=== PATIENT | female | born 1960 | race Two or more races ===

== ENCOUNTER 2020-07-21 08:29 | Outpatient (REF) | payer OTHER, SELFPAY ==
--- NOTE | 2020-07-21 08:54 | XR_ITS ---
EXAMINATION: XR KNEES, STANDING AP XR KNEE, RIGHT XR KNEE, LEFT CLINICAL INFORMATION: Osteoarthritis right knee, pain. Difficulty bending left knee, prior arthroplasty. COMPARISON: Radiographs standing AP knees and left knee 06/26/2018, radiographs right knee 12/21/2017. TECHNIQUE: Standing AP view of both knees is performed. In addition, each knee is imaged in lateral and axial patella views. FINDINGS: The right knee shows no fracture or dislocation or destructive process. There are prominent osteoarthritic changes involving all 3 compartments. There is greatest narrowing medial knee joint compartment with secondary genu varus. Bulky osteophytes are seen involving the femoral condyles as well as osteophytes involving the tibial plateau and patella. There is no erosive change or definite articular chondrocalcinosis. No lateralization patella. There may be lateral patellar tilt. No significant effusion appreciated. The left knee shows prior arthroplasty. The hardware appears intact. There is no fracture, dislocation, destructive process, or osteolysis. No suprapatellar effusion. Again, there is mineralization in the distal quadriceps tendon and in the patellar tendon. No definite lateralization or tilting patella. IMPRESSION: 1. Right: Prominent tricompartment osteoarthritis. Secondary genu varus. 2. Left: Prior knee arthroplasty. Hardware intact. No destructive process. No effusion.
== END 2020-07-21 08:30 | disposition home or self-care (01) ==
LOC: HO.XRAY 08:29
PROVIDERS: PCP Family Medicine; Referring Provider Family Medicine; Visit Provider Orthopaedic Surgery
DX: T84.84XA Pain due to internal orthopedic prosthetic devices, implants and grafts, initial encounter (principal); M17.11 Unilateral primary osteoarthritis, right knee; Z96.652 Presence of left artificial knee joint
CPT/HCPCS: 73560; 73565; 99212

== ENCOUNTER → 2020-08-04 08:33 | Outpatient (BNVA) | payer OTHER, SELFPAY | PROVIDERS: PCP Family Medicine; Referring Provider Family Medicine; Visit Provider Orthopaedic Surgery | DX: M75.41 Impingement syndrome of right shoulder (principal) | CPT/HCPCS: 20610; 99212; J1100 ==

== ENCOUNTER 2020-08-04 08:40 | Outpatient (REF) | payer OTHER, SELFPAY ==
--- NOTE | 2020-08-04 08:40 | XR_ITS ---
EXAMINATION: XR SHOULDER, RIGHT CLINICAL INFORMATION: Pain. COMPARISON: None TECHNIQUE: Three views of the right shoulder. FINDINGS: There is loss of right AC joint and glenohumeral joint space with periarticular spurring AC joint. No bony erosive changes, fracture or dislocation or subluxation. XR/XR shoulder RT min 2V IMPRESSION: Degenerative arthritic changes right AC joint and glenohumeral joint. No visible acute fracture or dislocation seen.
== END 2020-08-04 08:41 | disposition home or self-care (01) ==
LOC: HO.HOSX 08:40
PROVIDERS: Visit Provider Orthopaedic Surgery
DX: M75.41 Impingement syndrome of right shoulder (principal)
CPT/HCPCS: 73030

== ENCOUNTER 2020-08-27 12:49 | Outpatient (REF) | payer OTHER, SELFPAY | END 2020-08-27 12:50 | disposition home or self-care (01) | LOC: HO.LAB 12:49 | PROVIDERS: Visit Provider Internal Medicine | DX: Z20.828 Contact with and (suspected) exposure to other viral communicable diseases (principal) | CPT/HCPCS: C9803; U0003 ==

== ENCOUNTER 2020-09-02 06:32 | Outpatient (REF) | payer OTHER, SELFPAY | END 2020-09-02 06:33 | disposition home or self-care (01) | LOC: HO.LAB 06:32 | PROVIDERS: Visit Provider Internal Medicine | DX: Z20.828 Contact with and (suspected) exposure to other viral communicable diseases (principal) | CPT/HCPCS: C9803; U0003 ==

== ENCOUNTER → 2020-09-08 08:24 | Outpatient (BNVA) | payer OTHER, SELFPAY | PROVIDERS: PCP Family Medicine; Visit Provider Orthopaedic Surgery | DX: Z76.89 Persons encountering health services in other specified circumstances (principal) ==

== ENCOUNTER 2020-09-11 07:54 | Outpatient (REF) | payer OTHER, SELFPAY ==
--- NOTE | 2020-09-11 08:02 | ECG_ITS ---
Test Reason : PREOP Blood Pressure : / mmHG Vent. Rate : 065 BPM Atrial Rate : 065 BPM P-R Int : 158 ms QRS Dur : 074 ms QT Int : 384 ms P-R-T Axes : 046 042 027 degrees QTc Int : 399 ms Sinus rhythm with Premature atrial complexes Otherwise normal ECG When compared to the previous EKG of 04 jul 2019, PACs now seen Referred By: Arjun Saeed Electronically Signed By:MATTHEW URIBE
[2020-09-11 08:45] LABS: MANUAL DIFF FLAG NO
[2020-09-11 08:58] LABS: Basophils Percent Auto 0.6 % (0-2); Eosinophils Absolute Auto 0.2 X10*3/uL (0.0-0.4); Eosinophils Percent Auto 2.9 % (0-4); Imm Gran Abs Auto 0.01 X10*3/uL (0.00-0.03); Imm Gran Pct Auto 0.2 % (0.0-0.4); Lymphocytes Absolute Auto 1.4 X10*3/uL (1.2-4.9); Lymphocytes Percent Auto 25.9 % (20-40); Mean Corpuscular Hemoglobin 28.3 pg (27.0-33.0); Mean Corpuscular Volume 91.5 fL (80-98); Mean Platelet Volume 10.2 fL (9.4-12.3); Monocytes Absolute Auto 0.4 X10*3/uL (0.1-1.2); Neutrophils Absolute Auto 3.3 X10*3/uL (2.0-8.3); Neutrophils Percent Auto 62.4 % (45-73); Platelet Count 251 X10*3/uL (160-400); Red Blood Count 4.59 X10*6/uL (4.20-5.50); Red Cell Distribution Width 13.4 % (11.0-16.0); White Blood Count 5.2 X10*3/uL (4.8-10.8)
[2020-09-11 09:12] LABS: Anion Gap 12 (12-20); Blood Urea Nitrogen 20 mg/dL (9-16); Calcium 8.8 mg/dL (8.4-10.2); Carbon Dioxide 29 mmol/L (22-29); Chloride 105 mmol/L (96-108); Estimated Glomerular Filt Rate > 60; Glucose Random 81 mg/dL (60-115); Potassium 4.2 mmol/l (3.3-5.1); Sodium 142 mmol/L (135-145)
== END 2020-09-11 07:55 | disposition home or self-care (01) ==
LOC: HO.LAB 07:54
PROVIDERS: PCP Family Medicine; Visit Provider Orthopaedic Surgery
DX: Z01.812 Encounter for preprocedural laboratory examination (principal); Z01.810 Encounter for preprocedural cardiovascular examination; I49.1 Atrial premature depolarization
CPT/HCPCS: 36415; 80048; 85025; 93005

== ENCOUNTER 2020-09-24 16:16 | Outpatient (REF) | payer OTHER, SELFPAY ==
--- NOTE | 2020-09-24 | US_ITS ---
EXAMINATION: US VENOUS ULTRASOUND WITH DOPPLER LOWER EXTREMITY, RIGHT CLINICAL INFORMATION: Edema COMPARISON: Venous Doppler ultrasound study right lower extremity 08/01/2014 dictated report only. Images not available for review. TECHNIQUE: Ultrasound of the deep veins is performed from the hip to the calf with compression sonography and color and pulse Doppler assessment. Spectral analysis with color-flow imaging is performed. FINDINGS: There is normal venous compression and respiratory variation and augmented flow. The visualized common femoral vein, superficial femoral vein, profunda femoral vein, popliteal vein, and the trifurcation region shows no evidence of deep venous thrombosis. No evidence of thrombus in the posterior tibial vein. The peroneal vein was not visualized. There is no significant popliteal fossa cyst. If the patient's symptoms persist, followup ultrasound in 5 days 7 days might be of value to exclude proximal propagation from a non-visualized calf vein. US/US venous duplex LE RT IMPRESSION: No DVT demonstrated in the right lower extremity.
== END 2020-09-24 16:17 | disposition home or self-care (01) ==
LOC: HO.US 16:16
PROVIDERS: PCP Family Medicine; Visit Provider Family Medicine
DX: M79.604 Pain in right leg (principal)
CPT/HCPCS: 93971

== ENCOUNTER → 2020-10-06 12:34 | Outpatient (BNVA) | payer OTHER, SELFPAY | PROVIDERS: Visit Provider Physician Assistant | DX: Z01.818 Encounter for other preprocedural examination (principal); T84.89XD Other specified complication of internal orthopedic prosthetic devices, implants and grafts, subsequent encounter; Z96.652 Presence of left artificial knee joint | CPT/HCPCS: 99212 ==

== ENCOUNTER 2020-10-07 06:14 | Inpatient (IN) | payer OTHER, SELFPAY ==
[2020-09-29 12:06] VITALS: BMI 40.4
--- NOTE | 2020-09-29 12:16 | HO.ANESPROP2 ---
Documented by User: Naima Vickney 10/06/20 13:21 HPI - Anesthesia Eval Consult details Narrative: 60yo F for L TKA PCP cleared after optimizing BP. [facility] Past Medical History Medical History Arthritis Asthma Back pain Cancer DCIS (ductal carcinoma in situ) History of headache HTN (hypertension) Hx of radiation therapy Impingement syndrome of right shoulder Osteoarthritis of right knee Personal history of tuberculosis Wears dentures Family History Family History Father No problems noted. Mother No problems noted. Surgical History Surgical History H/O colonoscopy History of lumpectomy of right breast History of sleeve gastrectomy Hx of dilation and curettage Hx of foot surgery Hx of hysterectomy Hx of total knee replacement Status post left knee replacement History of Problems with Anesthesia: No Social History Social History Are you a primary customer care professional to a significant other at home: No Do you presently have visiting nurse or other home services: Yes ([employer]) Alcohol intake: never Smoking Status: Never smoker Use of substances other than those prescribed or required for medical reasons: No Have you been hit, kicked, punched, or otherwise hurt by someone within the past year? If so, by whom?: No Advance Directives Information Provided: No Recently lost weight without trying: No Current occupational status: disabled Current occupation: Right Handed Narrative Narrative: No recent illness. Activity limited to pain, deconditioning. Meds Allergies Allergy/AdvReac Type Severity Reaction Status Date / Time BANDAIDS Allergy Intermediate BLISTERS Uncoded 09/29/20 12:32 STERI-STRIPS Allergy Intermediate BLISTERS Uncoded 09/29/20 12:32 Home Medications Medication Instructions Recorded Confirmed Type oxycodone-acetaminophen 2.5 mg-325 1 tab PO Q8H PRN 07/21/20 09/29/20 History mg tablet albuterol sulfate 90 mcg/actuation 90 mcg INHALATION BID 09/09/20 10/07/20 History aerosol inhaler amlodipine 10 mg tablet 10 mg PO DAILY 09/09/20 10/07/20 History sennosides 8.6 mg tablet 17.2 mg PO DAILY 09/09/20 10/07/20 History lisinopril 20 mg tablet 30 mg PO DAILY tab 10/06/20 History Exam Exam Date and Time: September 29, 2020 1216 Height,Weight and Vital Signs: Vital Signs Pulse Rate 57 09/29/20 12:26 Respiratory Rate 20 09/29/20 12:26 Blood Pressure 173/73 H 09/29/20 12:26 Pulse Oximetry 98 09/29/20 12:26 Pertinent Lab Results Pertinent Lab Results: Laboratory Tests 09/29/20 09/29/20 11:33 11:33 WBC 6.7 Hgb 13.5 Hct 43.6 Plt Count 263 Sodium 139 Potassium 4.8 Chloride 104 Carbon Dioxide 30 H BUN 16 Creatinine 0.72 Laboratory Tests 09/30/20 16:50 Blood Type A Positive Antibody Screen NEGATIVE Narrative Narrative: EKG 09/2020: SR with PACs @ 63 Echo 2019: Nml biV function, no obvious valve or pericardial pathology, mild pulm htn Airway Mallampati Class: I TM Dist: >3cm Neck ROM: Full Denture: Upper and Lower Heart: RRR Lungs: CTAB Assessment and Plan Assessment Anesthesia Assessment: Anesthesia Plan Discussed and PAT Visit Documented by User: Devendra Little MD 10/07/20 08:28 [facility] Past Medical History Medical History Arthritis Asthma Back pain Cancer DCIS (ductal carcinoma in situ) History of headache HTN (hypertension) Hx of radiation therapy Impingement syndrome of right shoulder Osteoarthritis of right knee Personal history of tuberculosis Wears dentures Family History Family History Father No problems noted. Mother No problems noted. Surgical History Surgical History H/O colonoscopy History of lumpectomy of right breast History of sleeve gastrectomy Hx of dilation and curettage Hx of foot surgery Hx of hysterectomy Hx of total knee replacement Status post left knee replacement Social History Social History Are you a primary customer care professional to a significant other at home: No Do you presently have visiting nurse or other home services: Yes ([employer]) Alcohol intake: never Smoking Status: Never smoker Use of substances other than those prescribed or required for medical reasons: No Have you been hit, kicked, punched, or otherwise hurt by someone within the past year? If so, by whom?: No Advance Directives Information Provided: No Recently lost weight without trying: No Current occupational status: disabled Current occupation: Right Handed Meds Allergies Allergy/AdvReac Type Severity Reaction Status Date / Time BANDAIDS Allergy Intermediate BLISTERS Uncoded 09/29/20 12:32 STERI-STRIPS Allergy Intermediate BLISTERS Uncoded 09/29/20 12:32 Home Medications Medication Instructions Recorded Confirmed Type oxycodone-acetaminophen 2.5 mg-325 1 tab PO Q8H PRN 07/21/20 09/29/20 History mg tablet albuterol sulfate 90 mcg/actuation 90 mcg INHALATION BID 09/09/20 10/07/20 History aerosol inhaler amlodipine 10 mg tablet 10 mg PO DAILY 09/09/20 10/07/20 History sennosides 8.6 mg tablet 17.2 mg PO DAILY 09/09/20 10/07/20 History lisinopril 20 mg tablet 30 mg PO DAILY tab 10/06/20 History Assessment and Plan Assessment Anesthesia Assessment: Anesthesia Plan Discussed, PAT Visit and Chart Reviewed Final Anesthetic Review NPO: Yes ASA Class: III Final Preanesthetic Review: No Changes in Pt Med Stat, Meds/Allgs Chart Reviewed, Consent Obtained/Reviewed and Anes Risks/Benef Reviewed Patient Risk: Intermediate Procedure Risk: Intermediate Anesthetic Plan Anesthetic Plan: GA and Regional Block Disposition: Standard PACU
[2020-09-29 12:26] VITALS: BP 173/73; PULSE 57; RESP 20; O2SAT 98
[2020-09-29 14:24] LABS: MANUAL DIFF FLAG NO
[2020-09-29 14:28] LABS: Basophils Percent Auto 0.1 % (0-2); Eosinophils Absolute Auto 0.1 X10*3/uL (0.0-0.4); Eosinophils Percent Auto 0.9 % (0-4); Hematocrit 45.9 % (37-47); Imm Gran Abs Auto 0.02 X10*3/uL (0.00-0.03); Imm Gran Pct Auto 0.3 % (0.0-0.4); Lymphocytes Absolute Auto 1.4 X10*3/uL (1.2-4.9); Lymphocytes Percent Auto 21.5 % (20-40); Mean Corpuscular HGB Conc 30.5 g/dl (31.0-35.0); Mean Corpuscular Hemoglobin 27.9 pg (27.0-33.0); Mean Corpuscular Volume 91.6 fL (80-98); Mean Platelet Volume 10.6 fL (9.4-12.3); Monocytes Absolute Auto 0.5 X10*3/uL (0.1-1.2); Monocytes Percent Auto 7.5 % (2-11); Neutrophils Absolute Auto 4.7 X10*3/uL (2.0-8.3); Neutrophils Percent Auto 69.7 % (45-73); Platelet Count 262 X10*3/uL (160-400); Red Blood Count 5.01 X10*6/uL (4.20-5.50); Red Cell Distribution Width 13.1 % (11.0-16.0); White Blood Count 6.7 X10*3/uL (4.8-10.8)
[2020-09-29 15:00] LABS: Alanine Aminotransferase 20 U/L (0-31); Albumin Level 4.1 g/dL (3.5-5.0); Alkaline Phosphatase 78 U/L (39-117); Anion Gap 11 (12-20); Aspartate Amino Transferase 24 U/L (5-31); Bilirubin Total 0.4 mg/dL (0.0-1.0); Blood Urea Nitrogen 14 mg/dL (9-16); Calcium 9.3 mg/dL (8.4-10.2); Carbon Dioxide 30 mmol/L (22-29); Chloride 103 mmol/L (96-108); Creatinine Clr Calc Pharmacy 87.5; Estimated Glomerular Filt Rate > 60; Glucose Random 85 mg/dL (60-115); Potassium 4.5 mmol/l (3.3-5.1); Sodium 139 mmol/L (135-145); Total Protein 7.2 g/dL (6.5-8.0)
[2020-09-29 15:18] LABS: MRSA Nasal PCR NEGATIVE (Negative); SA Nasal PCR NEGATIVE (Negative)
[2020-10-07] VITALS (16 sets, daily range): BP systolic 105–173; BP diastolic 42–79; PULSE 58–98; RESP 14–18; TEMP 35.9–36.9; O2SAT 94–100
[2020-10-07 06:50] LABS: COVID-19 Test Negative (Negative)
[2020-10-07] MEDS: ceFAZolin Sodium/Dextrose,Iso 2 GM/50 ML PIGGYBACK IV ×2 (06:52→13:37)
[2020-10-07] MEDS: Gabapentin 600 MG TABLET PO (06:54)
[2020-10-07] MEDS: Lactated Ringers 1,000 ML 100 ML IVCONT (07:18)
--- NOTE | 2020-10-07 07:18 | PC.NURSE ---
patient c/o underneath bilateral breast itching. redness noted underneath breasts only. no s/sx of infection or an allergic reavtion to the area or the rest of the area. cont to monitor.
--- NOTE | 2020-10-07 07:37 | MHC.SHP ---
Pre-Procedural Eval Section A The patient is an INPATIENT: No Changes since office visit: Yes Patient answered all questions; No Cold of Flu in the past 2 weeks, No New Medical Problems and No Changes in Medication The History & Physical has been completed within 30 days and I have reviewed it.: Yes Section B Chief Complaint: Left revision total knee arthroplasty Allergies: Allergies Allergy/AdvReac Type Severity Reaction Status Date / Time BANDAIDS Allergy Intermediate BLISTERS Uncoded 09/29/20 12:32 STERI-STRIPS Allergy Intermediate BLISTERS Uncoded 09/29/20 12:32 Plan I have reviewed the history and physical and performed a pertinent physical examination on my patient. No changes have occurred unless specified.
--- NOTE | 2020-10-07 09:34 | PM.OP ---
Brief Operative Note Date of Service: 10/07/20 Pre-op diagnosis: arthrofibrosis left knee Post-op diagnosis: same Procedure: left knee open lysis of adhesion and polyethylene line exchange Implants: ba 11/15 PS Surgeon: Arjun Saeed MD Anesthesia: GETA and regional [employer] Advisor: Iesha Malhotra Estimated blood loss (mL): 100 Tourniquet time (min): 0 IV fluids (mL): 1,100 Urine output (mL): 0 Pathology: none sent Condition: stable Disposition: PACU
--- NOTE | 2020-10-07 10:41 | XR_ITS ---
EXAMINATION: XR KNEE, LEFT CLINICAL INFORMATION: Left TKA revision. COMPARISON: None TECHNIQUE: 2 views. of the left knee. FINDINGS: There is a total left knee arthroplasty with prosthetic components in alignment. There are surgical dean along the anterior knee from surgery. There is gas and soft tissue swelling along the anterior knee. XR/XR knee LT 2V IMPRESSION: Total left knee arthroplasty with postoperative changes visualized.
[2020-10-07] MEDS: Dextrose 5 % and 0.45 % NaCl 1,000 ML 80 ML IVCONT (13:34)
[2020-10-07] MEDS: HYDROmorphone HCl 0.5 MG/0.5 ML SYRINGE 0.25 MG IVPUSH (14:47)
--- NOTE | 2020-10-07 16:43 | P.CONIM_ITS ---
History of Present Illness Data of Consult Service Date: 10/07/20 <Bianka Mirza NP - Last Filed: 10/07/20 16:48> Requesting physician: Arjun Saeed <Bianka Mirza NP - Last Filed: 10/07/20 16:48> Primary Care Provider: Anushka Figueredo DO <Bianka Mirza NP - Last Filed: 10/07/20 16:48> HPI Reason for consult: Medical management <Bianka Mirza NP - Last Filed: 10/07/20 16:48> 60-year-old woman With history of hypertension, asthma, arthritis status post left total knee arthroplasty. Admitted by Orthopedic surgery. Surgery was unremarkable. Vital signs are stable. Patient has no acute medical complaints at this time. <Bianka Mirza NP - Last Filed: 10/07/20 16:48> Review of Systems Review of Systems: Denies any recent fever chills or decrease in appetite respiratory denies any shortness of breath coverage production cardiovascular is adjustment of any PND or edema gastrointestinal denies any dysphagia abdominal pain nausea vomiting or di arrhea genitourinary denies any dysuria frequency or hematuria musculoskeletal denies any joint pain or swelling neuropsych denies any weakness or seizures all other systems reviewed are negative <Bianka Mirza NP - Last Filed: 10/07/20 16:48> [facility] Medical History: Medical History (Updated 10/08/20 @ 07:39 by Iesha Malhotra PA-C) Arthritis Asthma Back pain Cancer DCIS (ductal carcinoma in situ) History of headache HTN (hypertension) Hx of radiation therapy Impingement syndrome of right shoulder Osteoarthritis of right knee Personal history of tuberculosis Wears dentures <Bianka Mirza NP - Last Filed: 10/07/20 16:48> Family History: Family History Father No problems noted. Mother No problems noted. <Bianka Mirza NP - Last Filed: 10/07/20 16:48> Surgical History: Surgical History H/O colonoscopy History of lumpectomy of right breast History of sleeve gastrectomy Hx of dilation and curettage Hx of foot surgery Hx of hysterectomy Hx of total knee replacement Status post left knee replacement <Bianka Mirza NP - Last Filed: 10/07/20 16:48> Social History: Social History Household Members: Family Housing: House Are you a primary medicare insurance specialist to a significant other at home: No Do you presently have visiting nurse or other home services: No Alcohol intake: never Smoking Status: Never smoker Use of substances other than those prescribed or required for medical reasons: No Currently Displaying Signs/Symptoms of Drug Intoxication Withdrawal: No Have you been hit, kicked, punched, or otherwise hurt by someone within the past year? If so, by whom?: No Do you feel safe in your current relationship?: No Current Relationship Is there a partner from a previous relationship who is making you feel unsafe now?: No Are you made to feel afraid or neglected: No Advance Directives Information Provided: No Do you have thoughts of harming others: None Do you have a plan to hurt others: No Plan Recently lost weight without trying: No Current occupational status: disabled Current occupation: Right Handed <Bianka Mirza NP - Last Filed: 10/07/20 16:48> Meds Allergies/Adverse reactions: Allergies Allergy/AdvReac Type Severity Reaction Status Date / Time BANDAIDS Allergy Intermediate BLISTERS Uncoded 09/29/20 12:32 STERI-STRIPS Allergy Intermediate BLISTERS Uncoded 09/29/20 12:32 <Bianka Mirza NP - Last Filed: 10/07/20 16:48> Home medications: Home Medications Medication Instructions Recorded Confirmed Type oxycodone-acetaminophen 2.5 mg-325 1 tab PO Q8H PRN 07/21/20 09/29/20 History mg tablet albuterol sulfate 90 mcg/actuation 2 puff INHALATION Q4H PRN 09/09/20 10/07/20 History aerosol inhaler amlodipine 10 mg tablet 10 mg PO DAILY 09/09/20 10/07/20 History sennosides 8.6 mg tablet 17.2 mg PO DAILY 09/09/20 10/07/20 History lisinopril 20 mg tablet 30 mg PO DAILY tab 10/06/20 History <Bianka Mirza NP - Last Filed: 10/07/20 16:48> Physical Exam Vital Signs and Narrative: Vital Signs: Last Vital Signs Temp 97.2 F 10/07/20 16:00 Pulse 79 10/07/20 16:00 Resp 18 10/07/20 16:00 BP 140/76 H 10/07/20 16:00 Pulse Ox 100 10/07/20 16:00 Body Mass Index 40.4 <Bianka Mirza NP - Last Filed: 10/07/20 16:48> Appearing in no acute distress head is normocephalic atraumatic eyes pupils are PERRLA sclera is anicteric mouth throat mucous membranes are intact and moist neck is supple no lymphadenopathy, no JVD noted lung sounds are clear to auscultation heart regular rate rhythm abdomen is tender neuro patient is alert x3, no focal deficits surgical incision, dry clean dressing. <Bianka Mirza NP - Last Filed: 10/07/20 16:48> Results Labs CBC and Chem 7: : 10/08/20 05:47 10/08/20 05:47 <Bianka Mirza NP - Last Filed: 10/07/20 16:48> Labs: Laboratory Results - last 24 hr 10/07/20 06:16 COVID-19 ([facility]) Negative COVID-19 Clin Com See Note <Bianka Mirza NP - Last Filed: 10/07/20 16:48> Imaging Radiologist's Impressions: Impressions Knee X-Ray 10/07/20 10:41 IMPRESSION: Total left knee arthroplasty with postoperative changes visualized. <Bianka Mirza NP - Last Filed: 10/07/20 16:48> Assessment and Plan (1) HTN (hypertension): Status: Acute <Bianka Mirza NP - Last Filed: 10/07/20 16:48> 60-year-old man admitted by Orthopedic surgery and is status post left knee arthroplasty. Left knee arthroplasty. Management as per surgical team. Pain management. Hypertension. Stable blood pressure. Continue home medications. Asthma. Albuterol as needed. DVT prophylaxis with mechanical compression boots Case discussed with Dr. Stewart Full code <Bianka Mirza NP - Last Filed: 10/07/20 16:48>
[2020-10-07] MEDS: oxyCODONE HCl Immed Release 5 MG TABLET 10 MG PO (17:56)
[2020-10-07] MEDS: oxyCODONE HCl ER 10 MG TAB.ER.12H PO (21:02)
[2020-10-07] MEDS: Celecoxib 200 MG CAPSULE PO (21:02)
[2020-10-08] MEDS: Dextrose 5 % and 0.45 % NaCl 1,000 ML 80 ML IVCONT ×2 (01:12→12:36)
[2020-10-08] MEDS: HYDROmorphone HCl 0.5 MG/0.5 ML SYRINGE 0.25 MG IVPUSH ×2 (03:25→20:48)
[2020-10-08 04:00] VITALS: BP 147/58; PULSE 69; RESP 16; TEMP 36.2; O2SAT 98
[2020-10-08 06:51] LABS: Basophils Percent Auto 0.2 % (0-2); Eosinophils Percent Auto 0.5 % (0-4); Hematocrit 36.2 % (37-47); Hemoglobin 11.1 g/dl (12.0-16.0); Imm Gran Abs Auto 0.02 X10*3/uL (0.00-0.03); Imm Gran Pct Auto 0.3 % (0.0-0.4); Lymphocytes Absolute Auto 0.7 X10*3/uL (1.2-4.9); Lymphocytes Percent Auto 10.7 % (20-40); MANUAL DIFF FLAG SCAN; Mean Corpuscular HGB Conc 30.7 g/dl (31.0-35.0); Mean Corpuscular Hemoglobin 28.3 pg (27.0-33.0); Mean Corpuscular Volume 92.3 fL (80-98); Mean Platelet Volume 10.7 fL (9.4-12.3); Monocytes Absolute Auto 0.8 X10*3/uL (0.1-1.2); Monocytes Percent Auto 12.6 % (2-11); Neutrophils Absolute Auto 4.8 X10*3/uL (2.0-8.3); Neutrophils Percent Auto 75.7 % (45-73); Platelet Count 223 X10*3/uL (160-400); Red Blood Count 3.92 X10*6/uL (4.20-5.50); Red Cell Distribution Width 13.2 % (11.0-16.0); SCAN SMEAR FLAG 1; White Blood Count 6.4 X10*3/uL (4.8-10.8)
[2020-10-08 06:53] LABS: Anion Gap 15 (12-20); Blood Urea Nitrogen 9 mg/dL (9-16); Calcium 8.2 mg/dL (8.4-10.2); Carbon Dioxide 26 mmol/L (22-29); Chloride 103 mmol/L (96-108); Creatinine Clr Calc Pharmacy 98.6; Estimated Glomerular Filt Rate > 60; Glucose Fasting 129 mg/dL (60-99); Potassium 4.5 mmol/l (3.3-5.1); Sodium 139 mmol/L (135-145)
[2020-10-08 07:30] VITALS: BP 150/65; PULSE 75; RESP 17; TEMP 36.6; O2SAT 99
[2020-10-08] MEDS: Celecoxib 200 MG CAPSULE PO ×2 (07:31→20:48)
[2020-10-08] MEDS: 0.9 % Sodium Chloride Flush 3 ML SYRINGE IVFLUSH (07:32)
[2020-10-08] MEDS: oxyCODONE HCl ER 10 MG TAB.ER.12H PO ×2 (07:32→20:49)
--- NOTE | 2020-10-08 07:37 | PM.PNORT ---
Subjective Subjective Date of Service: 10/08/20 Interval history: POD1 s/p LTKA revision. Patient states that her pain is well managed. Her night was okay . She reports using her CPM machine until about midnight. No overnight events. Physical Exam Vital Signs: Vital Signs: Last Vital Signs Temp 97.9 F 10/08/20 07:30 Pulse 75 10/08/20 07:30 Resp 17 10/08/20 07:30 BP 150/65 H 10/08/20 07:30 Pulse Ox 99 10/08/20 07:30 Body Mass Index 40.4 Const: General: cooperative, healthy appearing and no acute distress Resp: Effort & Inspection: normal respiratory effort and able to speak in complete sentences Cardio: Rate: regular rate Peripheral pulses: Peripheral pulses 2+ throughout GI: Inspection: Yes normal to inspection Palpation (GI): Soft to palpation Skin: General skin exam: no rashes or lesions noted Extrem: Other: Dressing is clean, dry, intact, no ecchymosis redness or drainage. NVI Progress Note: A&P Assessment and plan (1) History of revision of total replacement of left knee joint: Status: Acute Assessment and Plan: Continue pain mgmnt Begin Aspirin for dvt ppx begin PT for LT TKA Revision, CPM 24hrs/day Dispo planning-Pending PT eval, pain mgmnt Fall Risk Details Current Medications: Current Medications Generic Name Dose Route Start Last Admin Trade Name Freq PRN Reason Stop Dose Admin Acetaminophen 650 mg 10/07/20 13:32 Acetaminophen 325 Mg Tablet PO Q6H PRN Pain, Mild (Pain Scale 1-3) Albuterol Sulfate 2 puff 10/07/20 21:00 Albuterol Sulfate 90 Mcg 8 Gm Inhaler INHALE Q4H PRN Shortness of Breath Celecoxib 200 mg 10/07/20 21:00 10/08/20 07:31 Celecoxib 200 Mg Capsule PO 200 mg BID GEO Administration Hydromorphone HCl 0.25 mg 10/07/20 13:32 10/08/20 03:25 Hydromorphone Hcl 0.5 Mg/0.5 Ml Syringe IVPUSH 0.25 mg Q4H PRN Administration Pain, Severe (Pain Scale 7-10) Dextrose/Sodium Chloride 1,000 mls @ 80 mls/hr 10/07/20 13:30 10/08/20 01:12 D51/2ns IVCONT 80 mls/hr .[id number] GEO Administration Naloxone HCl 0.2 mg 10/07/20 13:32 Naloxone Hcl 0.4 Mg/Ml Vial IVPUSH Q2M PRN Excessive sedation or RR < 8 Ondansetron HCl 4 mg 10/07/20 13:32 Ondansetron Hcl 4 Mg/2 Ml Vial IVPUSH Q8H PRN Nausea and Vomiting Oxycodone HCl 10 mg 10/07/20 13:32 10/07/20 17:56 Oxycodone Hcl Immed Release 5 Mg Tablet PO 10 mg Q4H PRN Administration Pain, Moderate (Pain Scale 4-6 Oxycodone HCl 10 mg 10/07/20 21:00 10/08/20 07:32 Oxycodone Hcl Er 10 Mg Tab.Er.12h PO 10 mg BID GEO Administration Senna 17.2 mg 10/07/20 13:32 Sennosides 8.6 Mg Tablet PO BEDTIME PRN Constipation Sodium Chloride 3 ml 10/07/20 16:00 10/08/20 07:32 0.9 % Sodium Chloride Flush 3 Ml Syringe IVFLUSH 3 ml QSHIFT GEO Administration Time Spent With Patient Time: Total time spent is greater than 50% in coordination of care (as documented) at patient's floor/unit and/or counseling patient: Time with patient: less than 15 minutes
[2020-10-08 07:43] LABS: SLIDE REVIEW VERIFIED
--- NOTE | 2020-10-08 08:18 | MHC.CM.PN ---
PATIENT CURRENTLY BATHING. CASE MANAGEMENT TO RETURN FOR IMM DISCUSSION AND SIGNATURE PATIENT DOES STATE THAT SHE IS NOT GOING TO ANY REHAB FACILITY, BUT IS AGREEABLE TO HOME WITH [facility] FOR HOME [facility]T. CASE MANAGEMENT NAMES WRITTEN ON BOARD
--- NOTE | 2020-10-08 08:35 | MHC.CM.PN ---
PATIENT LIVES WITH HER TWO GRANDCHILDREN. SHE HAS A CANE, WHEELED WALKER, AND A ROLLATOR. FAMILY PROVIDES TRANSPORTATION. PATIENT ALSO HAS 12.75 HOURS OF [employer] EACH WEEK. SHE ASKS FOR [facility] REFERRAL FOR HOME P.T; NOW PLACED. IMM 10/07 IN CHART.
[2020-10-08] MEDS: Aspirin 325 MG TABLET PO ×2 (08:45→20:47)
--- NOTE | 2020-10-08 08:54 | HO.POSTANES ---
Post Anesthesia Evaluation Post Anesthesia Evaluation Vital Signs: Vital Signs Temp Pulse Resp BP Pulse Ox 10/08/20 07:30 97.9 F 75 17 150/65 H 99 10/08/20 04:00 97.2 F 69 16 147/58 H 98 10/07/20 23:21 98.5 F 82 16 149/64 H 98 Anesthesia: Nerve Block and General Endotracheal-GETA Mental Status: Awake Pain Control: Satisfactory Nausea/Vomiting: None Hydration: Adequate Anesthesia-Related Issues: No Anes. Related Issues
--- NOTE | 2020-10-08 10:12 | HO.PM.IMPN ---
Subjective Subjective Date of Service: 10/08/20 Interval History: no complaints Cardiovascular Cardiovascular: Reports no additional cardiovascular complaints Respiratory Respiratory: Reports no additional respiratory complaints Physical Exam Vital Signs: Vital Signs: Last Vital Signs Temp 97.9 F 10/08/20 07:30 Pulse 75 10/08/20 07:30 Resp 17 10/08/20 07:30 BP 150/65 H 10/08/20 07:30 Pulse Ox 99 10/08/20 07:30 Body Mass Index 40.4 General: AO X 3, no acute distress Resp: CTA bilateral CVS: S1,S2,RRR GI: soft, non tender, non distended Neuro: motor grossly intact Psych: appropriate affect Objective Data Current Medications Generic Name Dose Route Start Last Admin Trade Name Freq PRN Reason Stop Dose Admin Acetaminophen 650 mg 10/07/20 13:32 Acetaminophen 325 Mg Tablet PO Q6H PRN Pain, Mild (Pain Scale 1-3) Albuterol Sulfate 2 puff 10/07/20 21:00 Albuterol Sulfate 90 Mcg 8 Gm Inhaler INHALE Q4H PRN Shortness of Breath Aspirin 325 mg 10/08/20 10:00 10/08/20 08:45 Aspirin 325 Mg Tablet PO 325 mg BID GEO Administration Celecoxib 200 mg 10/07/20 21:00 10/08/20 07:31 Celecoxib 200 Mg Capsule PO 200 mg BID GEO Administration Hydromorphone HCl 0.25 mg 10/07/20 13:32 10/08/20 03:25 Hydromorphone Hcl 0.5 Mg/0.5 Ml Syringe IVPUSH 0.25 mg Q4H PRN Administration Pain, Severe (Pain Scale 7-10) Dextrose/Sodium Chloride 1,000 mls @ 80 mls/hr 10/07/20 13:30 10/08/20 01:12 D51/2ns IVCONT 80 mls/hr .[id number] EGO Administration Naloxone HCl 0.2 mg 10/07/20 13:32 Naloxone Hcl 0.4 Mg/Ml Vial IVPUSH Q2M PRN Excessive sedation or RR < 8 Ondansetron HCl 4 mg 10/07/20 13:32 Ondansetron Hcl 4 Mg/2 Ml Vial IVPUSH Q8H PRN Nausea and Vomiting Oxycodone HCl 10 mg 10/07/20 13:32 10/07/20 17:56 Oxycodone Hcl Immed Release 5 Mg Tablet PO 10 mg Q4H PRN Administration Pain, Moderate (Pain Scale 4-6 Oxycodone HCl 10 mg 10/07/20 21:00 10/08/20 07:32 Oxycodone Hcl Er 10 Mg Tab.Er.12h PO 10 mg BID GEO Administration Senna 17.2 mg 10/07/20 13:32 Sennosides 8.6 Mg Tablet PO BEDTIME PRN Constipation Sodium Chloride 3 ml 10/07/20 16:00 10/08/20 07:32 0.9 % Sodium Chloride Flush 3 Ml Syringe IVFLUSH 3 ml QSHIFT GEO Administration Labs CBC & Chem 7: 10/08/20 05:47 10/08/20 05:47 Assessment and Plan (1) HTN (hypertension): Status: Acute Assessment and Plan: 60-year-old female admitted by Orthopedic surgery and is status post left knee arthroplasty. Left knee arthroplasty. POD 1 Management as per surgical team Hypertension restart amlodipine Asthma. Albuterol as needed.
[2020-10-08 11:44] VITALS: BP 138/62; PULSE 77; RESP 15; TEMP 36.2; O2SAT 97
[2020-10-08 15:22] VITALS: BMI 40.4
[2020-10-08] MEDS: oxyCODONE HCl Immed Release 5 MG TABLET 10 MG PO (15:27)
[2020-10-08 15:42] VITALS: BP 156/65; PULSE 85; RESP 16; TEMP 36.5; O2SAT 99
[2020-10-08 20:00] VITALS: BP 142/81; PULSE 69; RESP 18; TEMP 36.8; O2SAT 100
[2020-10-08 23:56] VITALS: BP 140/60; PULSE 84; RESP 20; TEMP 36.7; O2SAT 97
[2020-10-09] MEDS: Dextrose 5 % and 0.45 % NaCl 1,000 ML 80 ML IVCONT (00:32)
[2020-10-09 03:58] VITALS: BP 134/61; PULSE 82; RESP 20; TEMP 36.9; O2SAT 96
[2020-10-09] MEDS: oxyCODONE HCl Immed Release 5 MG TABLET 10 MG PO ×2 (04:04→11:18)
[2020-10-09 06:44] LABS: MANUAL DIFF FLAG NO
[2020-10-09 07:14] LABS: Basophils Percent Auto 0.1 % (0-2); Eosinophils Absolute Auto 0.1 X10*3/uL (0.0-0.4); Eosinophils Percent Auto 1.1 % (0-4); Hemoglobin 11.2 g/dl (12.0-16.0); Imm Gran Abs Auto 0.03 X10*3/uL (0.00-0.03); Imm Gran Pct Auto 0.3 % (0.0-0.4); Lymphocytes Percent Auto 11.3 % (20-40); Mean Corpuscular HGB Conc 30.3 g/dl (31.0-35.0); Mean Corpuscular Hemoglobin 28.1 pg (27.0-33.0); Mean Corpuscular Volume 92.7 fL (80-98); Mean Platelet Volume 10.4 fL (9.4-12.3); Monocytes Absolute Auto 0.9 X10*3/uL (0.1-1.2); Monocytes Percent Auto 10.5 % (2-11); Neutrophils Absolute Auto 6.7 X10*3/uL (2.0-8.3); Neutrophils Percent Auto 76.7 % (45-73); Platelet Count 236 X10*3/uL (160-400); Red Blood Count 3.99 X10*6/uL (4.20-5.50); Red Cell Distribution Width 13.2 % (11.0-16.0); White Blood Count 8.8 X10*3/uL (4.8-10.8)
[2020-10-09 07:33] LABS: Anion Gap 11 (12-20); Blood Urea Nitrogen 6 mg/dL (9-16); Calcium 8.4 mg/dL (8.4-10.2); Carbon Dioxide 27 mmol/L (22-29); Chloride 105 mmol/L (96-108); Creatinine Clr Calc Pharmacy 100.2; Estimated Glomerular Filt Rate > 60; Glucose Fasting 113 mg/dL (60-99); Potassium 4.2 mmol/l (3.3-5.1); Sodium 139 mmol/L (135-145)
[2020-10-09 07:52] VITALS: BP 136/74; PULSE 90; RESP 17; TEMP 37; O2SAT 99
[2020-10-09 08:08] VITALS: BP 136/74; PULSE 90
[2020-10-09] MEDS: amLODIPine Besylate 10 MG TABLET PO (08:08)
[2020-10-09] MEDS: Aspirin 325 MG TABLET PO (08:08)
[2020-10-09] MEDS: oxyCODONE HCl ER 10 MG TAB.ER.12H PO (08:08)
[2020-10-09] MEDS: Celecoxib 200 MG CAPSULE PO (08:08)
--- NOTE | 2020-10-09 10:42 | HO.PM.IMPN ---
Subjective Subjective Date of Service: 10/09/20 Interval History: feeling well Cardiovascular Cardiovascular: Reports no additional cardiovascular complaints Respiratory Respiratory: Reports no additional respiratory complaints Physical Exam Vital Signs: Vital Signs: Last Vital Signs Temp 98.6 F 10/09/20 07:52 Pulse 90 10/09/20 08:08 Resp 17 10/09/20 07:52 BP 136/74 10/09/20 08:08 Pulse Ox 99 10/09/20 07:52 Body Mass Index 40.4 General: AO X 3, no acute distress Resp: CTA bilateral CVS: S1,S2,RRR GI: soft, non tender, non distended Neuro: motor grossly intact Psych: appropriate affect Objective Data Current Medications Generic Name Dose Route Start Last Admin Trade Name Freq PRN Reason Stop Dose Admin Acetaminophen 650 mg 10/07/20 13:32 Acetaminophen 325 Mg Tablet PO Q6H PRN Pain, Mild (Pain Scale 1-3) Albuterol Sulfate 2 puff 10/07/20 21:00 Albuterol Sulfate 90 Mcg 8 Gm Inhaler INHALE Q4H PRN Shortness of Breath Amlodipine Besylate 10 mg 10/09/20 09:00 10/09/20 08:08 Amlodipine Besylate 10 Mg Tablet PO 10 mg DAILY GEO Administration Protocol Aspirin 325 mg 10/08/20 10:00 10/09/20 08:08 Aspirin 325 Mg Tablet PO 325 mg BID GEO Administration Celecoxib 200 mg 10/07/20 21:00 10/09/20 08:08 Celecoxib 200 Mg Capsule PO 200 mg BID GEO Administration Hydromorphone HCl 0.25 mg 10/07/20 13:32 10/08/20 20:48 Hydromorphone Hcl 0.5 Mg/0.5 Ml Syringe IVPUSH 0.25 mg Q4H PRN Administration Pain, Severe (Pain Scale 7-10) Dextrose/Sodium Chloride 1,000 mls @ 80 mls/hr 10/07/20 13:30 10/09/20 00:32 D51/2ns IVCONT 80 mls/hr .[id number] GEO Administration Naloxone HCl 0.2 mg 10/07/20 13:32 Naloxone Hcl 0.4 Mg/Ml Vial IVPUSH Q2M PRN Excessive sedation or RR < 8 Ondansetron HCl 4 mg 10/07/20 13:32 Ondansetron Hcl 4 Mg/2 Ml Vial IVPUSH Q8H PRN Nausea and Vomiting Oxycodone HCl 10 mg 10/07/20 13:32 10/09/20 04:04 Oxycodone Hcl Immed Release 5 Mg Tablet PO 10 mg Q4H PRN Administration Pain, Moderate (Pain Scale 4-6 Oxycodone HCl 10 mg 10/07/20 21:00 10/09/20 08:08 Oxycodone Hcl Er 10 Mg Tab.Er.12h PO 10 mg BID GEO Administration Senna 17.2 mg 10/07/20 13:32 Sennosides 8.6 Mg Tablet PO BEDTIME PRN Constipation Sodium Chloride 3 ml 10/07/20 16:00 10/09/20 08:08 0.9 % Sodium Chloride Flush 3 Ml Syringe IVFLUSH Not Given QSHIFT [facility] Labs CBC & Chem 7: 10/09/20 06:17 10/09/20 06:17 Assessment and Plan (1) HTN (hypertension): Status: Acute Assessment and Plan: 60-year-old female admitted by Orthopedic surgery and is status post left knee arthroplasty. Left knee arthroplasty. POD 2 Management as per surgical team Hypertension contolled, restarted amlodipine Asthma. Albuterol as needed. medically stable, will sign off for now, please recall if needed
[2020-10-09 11:34] VITALS: BP 142/64; PULSE 85; RESP 17; TEMP 36.3; O2SAT 96
--- NOTE | 2020-10-09 13:53 | MHC.CM.PN ---
Pt will DC home today with [facility] for PT Family to transport
--- NOTE | 2020-10-09 18:52 | OP_ITS ---
SURGEON: Arjun Saeed MD INDICATIONS: A 60-year-old woman with stiffness many years after knee replacement. She underwent a manipulation initially after surgery and then failed to followup appropriately and this resulted in a stiff knee. She was consented to undergo open treatment with possible complete revision. PREOPERATIVE DIAGNOSIS: Left knee postoperative arthrofibrosis. POSTOPERATIVE DIAGNOSIS: Left knee postoperative arthrofibrosis. PROCEDURE PERFORMED: ESTIMATED BLOOD LOSS: 100 mL. COMPLICATIONS: None known. ANESTHESIA: General and regional. ASSISTANTS: DARON Pak. SPECIMENS: PROCEDURES PERFORMED: Open lysis of adhesions and polyethylene exchange, left knee. FLUIDS: 1 L. PROCEDURE IN DETAIL: The patient was brought to the operating room, placed supine on the operative table, and prepped and draped in standard sterile fashion. Time-out was called to identify proper site, proper procedure, and proper surgeon. IV antibiotics were administered. While asleep, her knee flexed to approximately 60 degrees. I made a midline incision over the prior incision and identified the retinaculum and performed a medial parapatellar arthrotomy. She was obviously very stiff, but I was able to slowly translate the patella laterally and cleaned up the suprapatellar pouch. The medial and lateral gutters and the posterior capsule were released. I performed a large lateral release. I then was able to flex her up to about 110-120 degrees and further continued my lysis of adhesions. I assessed the femoral epicondyles and the final component was well fixed with appropriate rotation. No evidence of malalignment or infection. The same process was undertaken with the tibia, and again this was slightly externally rotated and well fixed. I debrided around the patella and remove some lateral patellar ossifications while I did the lateral release. I removed the liner and trialed with a 9 liner, but she hyperextended and I did not think this would help her. The primary problems seem to be extremely tight lateral patellofemoral region with contracted quad tendon. I replaced the 13 provisional liner and with the towel clips, I was able to flex the knee just approximately 95 degrees of flexion without too much strain on the retinacular on the medial arthrotomy. Therefore, I irrigated copiously. I used Aquamantys for cautery and placed a final 13 tibial insert in. I then placed 3 minutes soaked iodine with local TXA and then used the Quill to close the medial parapatellar arthrotomy. I was able to flex her knee comfortably to 95 even 100 degrees by forced it, but on its own, it laid approximately 95 degrees of flexion and full extension. It was stable to varus and valgus stress. I then performed a subcuticular closure with dean on the skin. The patient was then placed in sterile dressing, extubated, brought to recovery room in stable condition. There were no known complications. GRAFT OR IMPLANTS: [place] 13 PS insert. MD JASON Duarte/JEISON / [id number]
--- NOTE | 2020-10-10 15:14 | PM.DS ---
DS: Providers Provider Date of Service: 10/10/20 Date of admission: 10/07/20 06:14 Primary care physician: Anushka Figueredo DO Consults: 10/07/20 13:32 Consult to Hospitalist Routine Consulting Provider: Hospitalist Reason for consultation: routine post operative care DS: Diagnosis Discharge Diagnosis (1) History of revision of total replacement of left knee joint: Status: Acute Problem details: 60 yo s/p LTKA presented to the office with lt knee pain and stiffness who underwent a revision to attempt to regain full ROM. She elected to undergo a revision LTKA. DS: Medications Discharge Medications Home Medications: Home Medications Medication Instructions Recorded Confirmed albuterol sulfate 90 mcg/actuation 2 puff INHALATION Q4H PRN 09/09/20 10/07/20 aerosol inhaler amlodipine 10 mg tablet 10 mg PO DAILY 09/09/20 10/07/20 sennosides 8.6 mg tablet 17.2 mg PO DAILY 09/09/20 10/07/20 lisinopril 20 mg tablet 30 mg PO DAILY tab 10/06/20 Previous Rx's Medication Instructions Recorded acetaminophen 650 mg PO Q6H PRN 30 Days #240 tab 10/09/20 aspirin 325 mg PO BID 14 Days #28 tab 10/09/20 celecoxib 200 mg PO BID 30 Days #60 cap 10/09/20 oxycodone 10 mg PO Q4H PRN 7 Days #42 tab 10/09/20 DS: Summary Hospital Course Hospital Course: The patient underwent a successful revision left total knee arthoplasty, was transferred to PACU and then to the floor to recover. During their stay, their vitals were stable, afebrile at 97.4. Labs were unremarkable, H/H 11.2/37.0. POD 1 she was started on ASA for DVT ppx, they also received P.T. services twice a day. She was placed in a CPM machine for 20hrs per day 0-120. Prior to discharge, their dressing was change, incision clean dry and intact, new Aquacel dressing applied and the plan was to be discharged home with VNA services. Time Spent with Patient Time attestation: Total time spent providing and/or coordinating discharge services: Discharge coordination time: Greater than 30 minutes Physical Exam Vital Signs: Vital Signs: Last Vital Signs Temp 97.4 F 10/09/20 11:34 Pulse 85 10/09/20 11:34 Resp 17 10/09/20 11:34 BP 142/64 H 10/09/20 11:34 Pulse Ox 96 10/09/20 11:34 Body Mass Index 40.4 Const: General: cooperative, healthy appearing and no acute distress Resp: Effort & Inspection: normal respiratory effort and able to speak in complete sentences Cardio: Rate: regular rate Peripheral pulses: Peripheral pulses 2+ throughout GI: Inspection: Yes normal to inspection Palpation (GI): Soft to palpation Skin: General skin exam: no rashes or lesions noted Extrem: Other: Lt knee no ecchymosis, redness, or drainage. Incision was clean dry and dean intact. Aquacel dressing changed. NVI DS: Data Data Completed and Pending Completed studies during hospitalization [Text1]: Procedures Release Left Knee Joint, Open Approach (10/07/20) Removal of Liner from Left Knee Joint, Open Approach (10/07/20) Supplement Left Knee Joint, Tibial Surface with Liner, Open Approach (10/07/20) Labs on day of discharge: Laboratory Tests 09/29/20 09/29/20 09/29/20 12:40 13:30 13:30 WBC 6.7 RBC 5.01 Hgb 14.0 Hct 45.9 MCV 91.6 MCH 27.9 MCHC 30.5 L RDW 13.1 Plt Count 262 MPV 10.6 Immature Gran % (Auto) 0.3 Neut % (Auto) 69.7 Lymph % (Auto) 21.5 [place] % (Auto) 7.5 Eos % (Auto) 0.9 Baso % (Auto) 0.1 Lymph # (Auto) 1.4 [place] # (Auto) 0.5 Eos # (Auto) 0.1 Baso # (Auto) 0.0 Abs Immat Gran (auto) 0.02 Absolute Neuts (auto) 4.7 Absolute Nucleated RBC 0.000 Nucleated RBC % (auto) 0.0 Smear Tech's Comments Sodium 139 Potassium 4.5 Chloride 103 Carbon Dioxide 30 H Anion Gap 11 L BUN 14 Creatinine 0.71 Estim Creat Clear Calc 87.5 Estimated GFR > 60 Random Glucose 85 Fasting Glucose Calcium 9.3 Total Bilirubin 0.4 AST 24 ALT 20 Alkaline Phosphatase 78 Total Protein 7.2 Albumin 4.1 Nasal Screen MRSA (PCR) NEGATIVE Nasal S. aureus Screen NEGATIVE Nasal MRSA/S.aureus Interp SEE NOTE COVID-19 ([facility]) COVID-19 Clin Com Blood Type Antibody Screen 09/30/20 10/07/20 10/08/20 16:50 06:16 05:47 WBC 6.4 RBC 3.92 L D Hgb 11.1 L D Hct 36.2 L D MCV 92.3 MCH 28.3 MCHC 30.7 L RDW 13.2 Plt Count 223 MPV 10.7 Immature Gran % (Auto) 0.3 Neut % (Auto) 75.7 H Lymph % (Auto) 10.7 L [place] % (Auto) 12.6 H Eos % (Auto) 0.5 Baso % (Auto) 0.2 Lymph # (Auto) 0.7 L [place] # (Auto) 0.8 Eos # (Auto) 0.0 Baso # (Auto) 0.0 Abs Immat Gran (auto) 0.02 Absolute Neuts (auto) 4.8 Absolute Nucleated RBC 0.000 Nucleated RBC % (auto) 0.0 Smear Tech's Comments VERIFIED Sodium Potassium Chloride Carbon Dioxide Anion Gap BUN Creatinine Estim Creat Clear Calc Estimated GFR Random Glucose Fasting Glucose Calcium Total Bilirubin AST ALT Alkaline Phosphatase Total Protein Albumin Nasal Screen MRSA (PCR) Nasal S. aureus Screen Nasal MRSA/S.aureus Interp COVID-19 ([facility]) Negative COVID-19 Clin Com See Note Blood Type A Positive Antibody Screen NEGATIVE 10/08/20 10/09/20 10/09/20 05:47 06:17 06:17 WBC 8.8 RBC 3.99 L Hgb 11.2 L Hct 37.0 MCV 92.7 MCH 28.1 MCHC 30.3 L RDW 13.2 Plt Count 236 MPV 10.4 Immature Gran % (Auto) 0.3 Neut % (Auto) 76.7 H Lymph % (Auto) 11.3 L [place] % (Auto) 10.5 Eos % (Auto) 1.1 Baso % (Auto) 0.1 Lymph # (Auto) 1.0 L [place] # (Auto) 0.9 Eos # (Auto) 0.1 Baso # (Auto) 0.0 Abs Immat Gran (auto) 0.03 Absolute Neuts (auto) 6.7 Absolute Nucleated RBC 0.000 Nucleated RBC % (auto) 0.0 Smear Tech's Comments Sodium 139 139 Potassium 4.5 4.2 Chloride 103 105 Carbon Dioxide 26 27 Anion Gap 15 11 L BUN 9 6 L Creatinine 0.63 0.62 Estim Creat Clear Calc 98.6 100.2 Estimated GFR > 60 > 60 Random Glucose Fasting Glucose 129 H 113 H Calcium 8.2 L D 8.4 Total Bilirubin AST ALT Alkaline Phosphatase Total Protein Albumin Nasal Screen MRSA (PCR) Nasal S. aureus Screen Nasal MRSA/S.aureus Interp COVID-19 ([facility]) COVID-19 Clin Com Blood Type Antibody Screen Discharge Plan Discharge Patient Disposition: Home Health Service Referrals: [facility] [Outside] Iesha Malhotra PA-C [Physician [employer]] - Discharge Medications: New celecoxib 200 mg Capsule 200 mg PO BID 30 Days Qty: 60 RF: 1 acetaminophen 325 mg Tablet 650 mg PO Q6H PRN (Reason: Pain, Mild (Pain Scale 1-3)) 30 Days Qty: 240 RF: 0 aspirin 325 mg Tablet 325 mg PO BID 14 Days Qty: 28 RF: 0 oxycodone 5 mg Tablet 10 mg PO Q4H PRN (Reason: Pain, Moderate (Pain Scale 4-6) 7 Days Qty: 42 RF: 0 Continued albuterol sulfate 90 mcg/actuation HFA aerosol inhaler 2 puff inhalation Q4H PRN (Reason: Shortness Of Breath) RF: 0 amlodipine 10 mg tablet 10 mg PO DAILY RF: 0 sennosides 8.6 mg tablet 17.2 mg PO DAILY RF: 0 Discontinued oxycodone-acetaminophen [Percocet] 2.5-325 mg tablet 1 tab PO Q8H PRN (Reason: Pain) RF: 0 Discharge Orders: Discharge Order (Routine); Ordered 10/09/20 Ordered By: Iesha Malhotra Diet: regular diet Activity on Discharge: Use cane or walker Discharge Date/Time: 10/09/20 14:49 Visit Report Forms: Patient Portal Discharge page Care Plan Goals: Restore function of left knee Health Concerns: None Plan of Treatment: Physical Therapy Pain management DVT prophylaxis
== END 2020-10-09 14:49 | disposition home health service (06) | DRG 489 ==
LOC: HO.SSSA 06:15 → HO.S3 13:25
PROVIDERS: Internal Medicine Medical Oncology; Physician Assistant; Admitting Provider Orthopaedic Surgery; PCP Family Medicine; Visit Provider Orthopaedic Surgery
PROC: 0SND0ZZ Release Left Knee Joint, Open Approach (ICD-10-PCS; CPT 27487; principal; 2020-10-07 07:30)
DX: T84.093A Other mechanical complication of internal left knee prosthesis, initial encounter (principal); I10 Essential (primary) hypertension; Z20.828 Contact with and (suspected) exposure to other viral communicable diseases; Z79.1 Long term (current) use of non-steroidal anti-inflammatories (NSAID); Z79.82 Long term (current) use of aspirin; Z79.899 Other long term (current) drug therapy
CPT/HCPCS: 36415; 73560; 80048; 80053; 85025; 86850; 86900; 86901; 87635; 87640; 87641; 97110; 97116; 97162; 97530; C1776; J0131; J0690; J1100; J1170; J2250; J2405; J3010

== ENCOUNTER → 2020-10-15 12:22 | Outpatient (BNVA) | payer OTHER, SELFPAY | PROVIDERS: PCP Family Medicine; Visit Provider Orthopaedic Surgery | DX: Z76.89 Persons encountering health services in other specified circumstances (principal) ==

== ENCOUNTER → 2020-10-16 11:21 | Outpatient (BNVA) | payer OTHER, SELFPAY | PROVIDERS: Visit Provider Physician Assistant | DX: Z47.1 Aftercare following joint replacement surgery (principal); M25.60 Stiffness of unspecified joint, not elsewhere classified; Z96.652 Presence of left artificial knee joint | CPT/HCPCS: 99212 ==

== ENCOUNTER → 2020-10-23 12:36 | Outpatient (BNVA) | payer OTHER, SELFPAY | PROVIDERS: Visit Provider Physician Assistant | DX: Z47.1 Aftercare following joint replacement surgery (principal); Z96.652 Presence of left artificial knee joint | CPT/HCPCS: 99212 ==

== ENCOUNTER → 2020-11-28 10:14 | Outpatient (BNVA) | payer OTHER, SELFPAY | PROVIDERS: Visit Provider Orthopaedic Surgery | DX: Z96.652 Presence of left artificial knee joint (principal) | CPT/HCPCS: 99212 ==

== ENCOUNTER → 2020-12-26 10:48 | Outpatient (BNVA) | payer OTHER, SELFPAY | PROVIDERS: Visit Provider Orthopaedic Surgery | DX: G89.18 Other acute postprocedural pain (principal); Z96.652 Presence of left artificial knee joint | CPT/HCPCS: 99212 ==

== ENCOUNTER → 2021-01-15 08:45 | Outpatient (BNVA) | payer OTHER, SELFPAY | PROVIDERS: Visit Provider Orthopaedic Surgery | DX: Z47.1 Aftercare following joint replacement surgery (principal); Z96.652 Presence of left artificial knee joint; M25.60 Stiffness of unspecified joint, not elsewhere classified | CPT/HCPCS: 99212 ==

== ENCOUNTER 2021-01-19 07:43 | Outpatient (REF) | payer OTHER, SELFPAY ==
[2021-01-19 09:42] LABS: Hemoglobin 12.8 g/dl (12.0-16.0); Mean Corpuscular HGB Conc 30.5 g/dl (31.0-35.0); Mean Corpuscular Hemoglobin 27.6 pg (27.0-33.0); Mean Corpuscular Volume 90.5 fL (80-98); Platelet Count 190 X10*3/uL (160-400); Red Blood Count 4.64 X10*6/uL (4.20-5.50); Red Cell Distribution Width 14.1 % (11.0-16.0); White Blood Count 4.9 X10*3/uL (4.8-10.8)
[2021-01-19 10:00] LABS: Alanine Aminotransferase 15 U/L (0-31); Albumin Level 3.8 g/dL (3.5-5.0); Alkaline Phosphatase 76 U/L (39-117); Anion Gap 11 (12-20); Aspartate Amino Transferase 21 U/L (5-31); Bilirubin Direct 0.2 mg/dL (0.0-0.5); Bilirubin Total 0.6 mg/dL (0.0-1.0); Blood Urea Nitrogen 16 mg/dL (9-16); Calcium 9.3 mg/dL (8.4-10.2); Carbon Dioxide 29 mmol/L (22-29); Chloride 105 mmol/L (96-108); Cholesterol 161 mg/dL; Estimated Glomerular Filt Rate > 60; Glucose Random 87 mg/dL (60-115); HDL Cholesterol 69 mg/dL; LDL Cholesterol Calculated 82 mg/dl; Potassium 4.4 mmol/L (3.3-5.1); Sodium 141 mmol/L (135-145); Triglycerides 51 mg/dL
[2021-01-19 10:11] LABS: Syphilis Screen Nonreactive (Nonreactive); ~HepC Num1 0.09 S/CO (0.00-0.79); ~Hepatitis C Antibody Nonreactive (Nonreactive)
[2021-01-19 10:12] LABS: HBS Num1 2.35 mIU/mL (0-7.99); HIV AB/AG Nonreactive (Nonreactive); HIV Num 1 0.05 S/CO (0.00-0.99); ~Hepatitis B Surface Antibody NONREACTIVE (Nonreactive)
[2021-01-19 10:14] LABS: Creatinine Urine 148.77 mg/dL
[2021-01-19 10:16] LABS: HBsAGNum1 0.25 S/CO (0.00-0.99); Hepatitis B Surface Antigen Negative (Negative)
[2021-01-19 10:22] LABS: Free T4 (Free Thyroxine) 1.11 ng/dL (0.71-1.85); Thyroid Stimulating Hormone 0.66 uIU/mL (0.32-4.0); Vitamin D 25-OH Total 20.2 ng/mL (>30)
[2021-01-19 11:08] LABS: CT PCR NOT DETECTED (Not Detect.); NG PCR NOT DETECTED (Not Detect.)
== END 2021-01-19 07:44 | disposition home or self-care (01) ==
LOC: HO.LAB 07:43
PROVIDERS: PCP Family Medicine; Visit Provider Family Medicine
DX: Z11.4 Encounter for screening for human immunodeficiency virus [HIV] (principal); Z11.3 Encounter for screening for infections with a predominantly sexual mode of transmission; Z01.84 Encounter for antibody response examination; I10 Essential (primary) hypertension
CPT/HCPCS: 80048; 80061; 80076; 82043; 82306; 84439; 84443; 85027; 86706; 86780; 86803; 87340; 87389; 87491; 87591

== ENCOUNTER 2021-01-30 07:00 | Outpatient (RCR) | payer OTHER, SELFPAY ==
--- NOTE | 2020-10-29 10:01 | MHC.PT.EP ---
[facility] [place] Office [place] Office [place] Office [address] Nir Acosta [address] [phone] F: [phone] F: [phone] F: [phone] F: [phone] Physical Therapy Plan of Care Date of Evaluation: 10/29/20 Date of Surgery: 10/07/20 Diagnosis: presents of artificial knee joint, left Assessment: pt presents to physical therapy with pain, decreased range of motion, decreased strength, impaired functional mobility, impaired postural awareness, and gait deviations. pt is a fair candidate for skilled PT due to age, potential remediation of impairments, typical disease/condition progression and prognosis, comorbidities, and motivation. pt would benefit from tailored strengthening and stretching exercise program, functional training, gait training, postural re-training, neuromuscular re-education, modalities as needed for pain, equipment safety demonstration. Frequency and Duration: The patient will be seen 2x/wk for 8 wks Short Term Goals: pt will be I w/ HEP to promote self-management of condition. pt will improve L knee flexion by 15 degrees to remediate gait impairments on even ground. Photographic Process Attendant Goals: pt will ascend/descend 12 stairs using reciprocal pattern and LRAD to promote accessing primary living spaces at home. pt will report <1/10 L knee pain w/ walking >1500' to facilitate return to community ambulation w/ LRAD. Treatment Plan: Modalities to reduce pain, spasms and effusion. Manual therapy to restore motion and function. Therapeutic exercise to improve strength and flexibility. Neuromuscular re-education for posture and balance. Therapeutic activities to return to functional activities of daily living. Electronically signed by: Katiuska Cruz PT, DPT Please sign and return to therapist. Thank you for your referral.
--- NOTE | 2021-02-11 10:11 | MHC.PT.DC ---
[facility] [place] Office [place] Office [place] Office [address] Nir Acosta [address] [phone] F: [phone] F: [phone] F: [phone] F: [phone] Physical Therapy Discharge Report Diagnosis: presents of artificial knee joint, left Date of Surgery: t Date of Evaluation: 10/29/20 Date of Discharge: 02/11/21 Treatments to Date: 28 Cancellations to Date: 5 No Shows to Date: 1 Discharge Status: Independent with HEP Recommend MD Follow-up Discharge Summary: The patient has attended 28 sessions with little change in her range of motion. At her last appointment she achieved full extension and 74 degrees of active flexion. She has demonstrated improved strength and overall less edema. At this time she is independent with her home exercise program. She is to continue with her home exercise program to continue to work on her range. Due to lack of progress she is discharged from this physical therapy plan of care. Electronically signed by: Katiuska Cruz PT, DPT Please sign and return to therapist. Thank you for your referral.
== END 2021-02-11 10:11 | disposition other institution (70) ==
LOC: HO.PT 07:00
PROVIDERS: PCP Family Medicine; Visit Provider Physician Assistant
DX: Z47.1 Aftercare following joint replacement surgery (principal); M25.60 Stiffness of unspecified joint, not elsewhere classified; Z96.652 Presence of left artificial knee joint
CPT/HCPCS: 97110; 97140; 97161; 97530

== ENCOUNTER 2021-03-11 08:45 | Outpatient (REF) | payer OTHER, SELFPAY ==
--- NOTE | ~2021-03-11 | MM_ITS ---
EXAMINATION: MM SCREENING DIGITAL BREAST TOMOSYNTHESIS, BILATERAL CLINICAL INFORMATION: Screening. Asymptomatic. COMPARISON: Mammography: July 09, 2019 and studies dating back to August 08, 2014 TECHNIQUE: Digital breast tomosynthesis is performed in both the craniocaudal and mediolateral oblique views along with computer-aided detection (CAD). Synthesized 2D images are generated from the tomosynthesis. FINDINGS: There are scattered areas of fibroglandular density (ACR BI-RADS breast composition Category b). There are no new significant masses, abnormal calcifications, or other abnormalities. Stable architectural distortion upper outer aspect of the right breast from previous lumpectomy present. MM/MM tomosynthesis screening BI IMPRESSION: There are no significant changes from prior study. ASSESSMENT: BI-RADS 2: Benign RECOMMENDATION: Routine annual mammography screening. This patient's information was entered into a reminder system with a target due date for their next mammogram.
== END 2021-03-11 08:46 | disposition home or self-care (01) ==
LOC: HO.MAMMO 08:45
PROVIDERS: Visit Provider Family Medicine
DX: Z12.31 Encounter for screening mammogram for malignant neoplasm of breast (principal)
CPT/HCPCS: 77063; 77067

== ENCOUNTER 2021-06-01 09:43 | Outpatient (REF) | payer OTHER, SELFPAY ==
--- NOTE | ~2021-06-01 | XR_ITS ---
EXAMINATION: XR KNEES, BILATERAL XR KNEE, LEFT XR KNEE, RIGHT CLINICAL INFORMATION: Pain COMPARISON: Left knee 10/07/2020. Right knee 06/08/2020. TECHNIQUE: X-ray bilateral knees 1 view. Left knee 2 views. Right knee 2 views. FINDINGS: Left Knee: Status post left total knee arthroplasty, with stable position and alignment. No findings to suggest hardware failure. No acute fractures. Small suprapatellar joint fluid. Bones are osteopenic. Chronic-appearing calcification/ossifications in the soft tissues superior to the patella. Right Knee: Marginal osteophytes in all three compartments. There is joint space narrowing in all three compartments, most prominent in the medial compartment. Bones are osteopenic. No acute fracture or dislocation. Small suprapatellar joint fluid. XR/XR knee LT 2V IMPRESSION: Left Knee: Left total knee arthroplasty without findings to suggest hardware failure. Right Knee: Advanced tricompartment arthritis. Severe medial compartment arthritis. Small suprapatellar joint fluid. Osteopenia.
--- NOTE | ~2021-06-01 | XR_ITS ---
EXAMINATION: XR KNEES, BILATERAL XR KNEE, LEFT XR KNEE, RIGHT CLINICAL INFORMATION: Pain COMPARISON: Left knee 10/07/2020. Right knee 06/08/2020. TECHNIQUE: X-ray bilateral knees 1 view. Left knee 2 views. Right knee 2 views. FINDINGS: Left Knee: Status post left total knee arthroplasty, with stable position and alignment. No findings to suggest hardware failure. No acute fractures. Small suprapatellar joint fluid. Bones are osteopenic. Chronic-appearing calcification/ossifications in the soft tissues superior to the patella. Right Knee: Marginal osteophytes in all three compartments. There is joint space narrowing in all three compartments, most prominent in the medial compartment. Bones are osteopenic. No acute fracture or dislocation. Small suprapatellar joint fluid. XR/XR knee standing BI IMPRESSION: Left Knee: Left total knee arthroplasty without findings to suggest hardware failure. Right Knee: Advanced tricompartment arthritis. Severe medial compartment arthritis. Small suprapatellar joint fluid. Osteopenia.
--- NOTE | ~2021-06-01 | XR_ITS ---
EXAMINATION: XR KNEES, BILATERAL XR KNEE, LEFT XR KNEE, RIGHT CLINICAL INFORMATION: Pain COMPARISON: Left knee 10/07/2020. Right knee 06/08/2020. TECHNIQUE: X-ray bilateral knees 1 view. Left knee 2 views. Right knee 2 views. FINDINGS: Left Knee: Status post left total knee arthroplasty, with stable position and alignment. No findings to suggest hardware failure. No acute fractures. Small suprapatellar joint fluid. Bones are osteopenic. Chronic-appearing calcification/ossifications in the soft tissues superior to the patella. Right Knee: Marginal osteophytes in all three compartments. There is joint space narrowing in all three compartments, most prominent in the medial compartment. Bones are osteopenic. No acute fracture or dislocation. Small suprapatellar joint fluid. XR/XR knee RT 2V IMPRESSION: Left Knee: Left total knee arthroplasty without findings to suggest hardware failure. Right Knee: Advanced tricompartment arthritis. Severe medial compartment arthritis. Small suprapatellar joint fluid. Osteopenia.
== END 2021-06-01 09:44 | disposition home or self-care (01) ==
LOC: HO.HOSX 09:43
PROVIDERS: Visit Provider Orthopaedic Surgery
DX: M17.11 Unilateral primary osteoarthritis, right knee (principal); M25.562 Pain in left knee
CPT/HCPCS: 73560; 73565; 99212

== ENCOUNTER → 2021-09-03 13:07 | Outpatient (BNVA) | payer OTHER, SELFPAY | PROVIDERS: PCP Family Medicine; Visit Provider Physician Assistant | DX: M17.11 Unilateral primary osteoarthritis, right knee (principal) | CPT/HCPCS: 99212 ==

== ENCOUNTER 2021-09-09 07:57 | Inpatient (IN) | payer OTHER, SELFPAY ==
--- NOTE | 2021-09-01 | ECG_ITS ---
Test Reason : preop Blood Pressure : / mmHG Vent. Rate : 060 BPM Atrial Rate : 060 BPM P-R Int : 156 ms QRS Dur : 080 ms QT Int : 398 ms P-R-T Axes : 061 042 028 degrees QTc Int : 398 ms Normal sinus rhythm Normal ECG When compared with ECG of 11-SEP-2020 08:07, Premature atrial complexes are no longer Present Referred By: Iesha Malhotra Electronically Signed By:REBECCA FRIED MD
[2021-09-01 12:06] VITALS: BP 143/65; PULSE 61; RESP 20; O2SAT 100; BMI 40.4
--- NOTE | 2021-09-01 12:26 | P.CONAN_ITS ---
Documented by User: Naima Way NP 09/08/21 09:07 HPI - Anesthesia Eval Consult details Narrative: 60yo F for Right Knee Replacement Total s/p L TKA (2015) with Revision (10/2020 with GETA-7, adductor canal block: pt had no issues) PMFSH Active Problems Active Problems: All Active Problems (Updated 09/01/21 @ 11:59 by Charo Tucker RN) Status post left knee replacement (Acute) Osteoarthritis of right knee (Acute) Joint stiffness (Acute) History of revision of total replacement of left knee joint (Acute) Impingement syndrome of right shoulder (Acute) Past Medical History Medical History Arthritis Asthma Back pain Cancer COVID-19 vaccine series completed History of headache HTN (hypertension) Hx of radiation therapy Impingement syndrome of right shoulder Personal history of tuberculosis Wears dentures Family History Family History Father No problems noted. Mother No problems noted. 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 If so, by whom?: No Are you DNR?: No Advance Directives: No Advance Directives Information Provided: Yes (informational brochure given) Advance Directives on File: No Recently lost weight without trying: No Eating poorly because of decreased appetite: No Nutrition Risks: No Nutritional Risk Poor oral hygiene: No (upper & lower full dentures) Current occupational status: disabled Current occupation: Right Handed Narrative Narrative: No recent illness No CP/SOB with minimal activity d/t pain Meds Allergies Allergy/AdvReac Type Severity Reaction Status Date / Time BANDAIDS Allergy Intermediate BLISTERS Uncoded 06/01/21 10:20 STERI-STRIPS Allergy Intermediate BLISTERS Uncoded 06/01/21 10:20 Home Medications Medication Instructions Recorded Confirmed Last Taken Type albuterol sulfate 90 mcg/actuation 2 puff INHALATION Q4H PRN 09/09/20 09/01/21 10/06/20 History aerosol inhaler amlodipine 10 mg tablet 10 mg PO DAILY 09/09/20 09/01/21 10/07/20 05:30 History sennosides 8.6 mg tablet 17.2 mg PO DAILY 09/09/20 09/01/21 10/06/20 History amitriptyline 10 mg tablet 10 mg PO BEDTIME 06/01/21 09/01/21 Unknown History lisinopril 30 mg tablet 30 mg PO DAILY 06/01/21 09/01/21 Unknown History naloxone 4 mg/actuation nasal 1 spray INTRANASAL ONCE PRN 06/01/21 09/01/21 Unknown History spray (Narcan) nystatin 100,000 unit/gram topical 1 appl TOPICAL ONCE PRN 06/01/21 09/01/21 Unknown History powder vit C 250 mg-vit E 90 mg-zinc 40 1 cap PO DAILY 06/01/21 09/01/21 Unknown History mg-copper 1 [id number] capsule (PreserVision AREDS-2) Exam Exam Date and Time: September 01, 2021 1226 Height,Weight and Vital Signs: Height 5 ft 1 in Weight 96.9 kg Last Vital Signs Pulse 61 09/01/21 12:06 Resp 20 09/01/21 12:06 BP 143/65 H 09/01/21 12:06 Pulse Ox 100 09/01/21 12:06 Pertinent Lab Results Pertinent Lab Results: Lab Results 09/01/21 09/01/21 09/01/21 Range/Units 12:20 13:40 13:45 WBC (4.8-10.8) X10*3/uL RBC (4.20-5.50) X10*6/uL Hgb (12.0-16.0) g/dl Hct (37.0-47.0) % MCV (80.0-98.0) fL MCH (27.0-33.0) pg MCHC (31.0-35.0) g/dl RDW (11.0-16.0) % Plt Count (160-400) X10*3/uL MPV (9.4-12.3) fL Immature Gran % (Auto) (0.0-0.4) % Neut % (Auto) (45-73) % Lymph % (Auto) (20-40) % [place] % (Auto) (2-11) % Eos % (Auto) (0-4) % Baso % (Auto) (0-2) % Lymph # (Auto) (1.2-4.9) X10*3/uL [place] # (Auto) (0.1-1.2) X10*3/uL Eos # (Auto) (0.0-0.4) X10*3/uL Baso # (Auto) (0.0-0.2) X10*3/uL Abs Immat Gran (auto) (0.00-0.03) X10*3/uL Absolute Neuts (auto) (2.0-8.3) x10*3/uL Absolute Nucleated RBC (0.0-0.012) X10*3/uL Nucleated RBC % (auto) (0.0-0.2) /100WBC Sodium 139 (135-145) mmol/L Potassium 4.2 (3.3-5.1) mmol/L Chloride 105 (96-108) mmol/L Carbon Dioxide 27 (22-29) mmol/L Anion Gap 11 L (12-20) BUN 18 H (9-16) mg/dL Creatinine 0.67 (0.5-1.4) mg/dL Estim Creat Clear Calc 92.7 Estimated GFR > 60 Nasal Screen MRSA (PCR) NEGATIVE (Negative) Nasal S. aureus Screen NEGATIVE (Negative) Nasal MRSA/S.aureus Interp SEE NOTE Blood Type A Positive Antibody Screen NEGATIVE 09/01/21 Range/Units 13:45 WBC 7.5 (4.8-10.8) X10*3/uL RBC 4.54 (4.20-5.50) X10*6/uL Hgb 12.7 (12.0-16.0) g/dl Hct 41.3 (37.0-47.0) % MCV 91.0 (80.0-98.0) fL MCH 28.0 (27.0-33.0) pg MCHC 30.8 L (31.0-35.0) g/dl RDW 13.8 (11.0-16.0) % Plt Count 247 (160-400) X10*3/uL MPV 9.8 (9.4-12.3) fL Immature Gran % (Auto) 0.3 (0.0-0.4) % Neut % (Auto) 75.5 H (45-73) % Lymph % (Auto) 16.2 L (20-40) % [place] % (Auto) 6.8 (2-11) % Eos % (Auto) 0.9 (0-4) % Baso % (Auto) 0.3 (0-2) % Lymph # (Auto) 1.2 (1.2-4.9) X10*3/uL [place] # (Auto) 0.5 (0.1-1.2) X10*3/uL Eos # (Auto) 0.1 (0.0-0.4) X10*3/uL Baso # (Auto) 0.0 (0.0-0.2) X10*3/uL Abs Immat Gran (auto) 0.02 (0.00-0.03) X10*3/uL Absolute Neuts (auto) 5.7 (2.0-8.3) x10*3/uL Absolute Nucleated RBC 0.000 (0.0-0.012) X10*3/uL Nucleated RBC % (auto) 0.0 (0.0-0.2) /100WBC Sodium (135-145) mmol/L Potassium (3.3-5.1) mmol/L Chloride (96-108) mmol/L Carbon Dioxide (22-29) mmol/L Anion Gap (12-20) BUN (9-16) mg/dL Creatinine (0.5-1.4) mg/dL Estim Creat Clear Calc Estimated GFR Nasal Screen MRSA (PCR) (Negative) Nasal S. aureus Screen (Negative) Nasal MRSA/S.aureus Interp Blood Type Antibody Screen Narrative Narrative: EKG 08/2021 Vent. Rate : 060 BPM ? ? Atrial Rate : 060 BPM ?? P-R Int : 156 ms? QRS Dur : 080 ms ? ? QT Int : 398 ms ? ? ? P-R-T Axes : 061 042 028 degrees ?? QTc Int : 398 ms ? Normal sinus rhythm Normal ECG When compared with ECG of 11-SEP-2020 08:07, Premature atrial complexes are no longer Present Airway Mallampati Class: I TM Dist: >3cm Neck ROM: Full Denture: Upper and Lower Heart: RRR Lungs: CTAB Assessment and Plan Assessment Anesthesia Assessment: Anesthesia Plan Discussed, PAT Visit and Chart Reviewed Final Anesthetic Review Family History of Problems with Anesthesia: No History of Problems with Anesthesia: No Documented by User: Fany Ridley MD 09/09/21 11:39 [facility] Past Medical History Medical History Arthritis Asthma Back pain Cancer COVID-19 vaccine series completed History of headache HTN (hypertension) Hx of radiation therapy Impingement syndrome of right shoulder Personal history of tuberculosis Wears dentures Family History Family History Father No problems noted. Mother No problems noted. 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 If so, by whom?: No Are you DNR?: No Advance Directives: No Advance Directives Information Provided: Yes (informational brochure given) Advance Directives on File: No Recently lost weight without trying: No Eating poorly because of decreased appetite: No Nutrition Risks: No Nutritional Risk Poor oral hygiene: No (upper & lower full dentures) Current occupational status: disabled Current occupation: Right Handed Meds Allergies Allergy/AdvReac Type Severity Reaction Status Date / Time BANDAIDS Allergy Intermediate BLISTERS Uncoded 06/01/21 10:20 STERI-STRIPS Allergy Intermediate BLISTERS Uncoded 06/01/21 10:20 Home Medications Medication Instructions Recorded Confirmed Last Taken Type albuterol sulfate 90 mcg/actuation 2 puff INHALATION Q4H PRN 09/09/20 09/01/21 10/06/20 History aerosol inhaler amlodipine 10 mg tablet 10 mg PO DAILY 09/09/20 09/01/21 10/07/20 05:30 History sennosides 8.6 mg tablet 17.2 mg PO DAILY 09/09/20 09/01/21 10/06/20 History amitriptyline 10 mg tablet 10 mg PO BEDTIME 06/01/21 09/01/21 Unknown History lisinopril 30 mg tablet 30 mg PO DAILY 06/01/21 09/01/21 Unknown History naloxone 4 mg/actuation nasal 1 spray INTRANASAL ONCE PRN 06/01/21 09/01/21 Unknown History spray (Narcan) nystatin 100,000 unit/gram topical 1 appl TOPICAL ONCE PRN 06/01/21 09/01/21 Unknown History powder vit C 250 mg-vit E 90 mg-zinc 40 1 cap PO DAILY 06/01/21 09/01/21 Unknown History mg-copper 1 [id number] capsule (PreserVision AREDS-2) Exam Airway Loose/Missing/Broken Teeth: Yes, Upper and Lower Assessment and Plan Final Anesthetic Review History of Problems with Anesthesia: No NPO: Yes ASA Class: II and III Final Preanesthetic Review: Meds/Allgs Chart Reviewed, Consent Obtained/Reviewed and Anes Risks/Benef Reviewed Patient Risk: Intermediate Procedure Risk: Intermediate Anesthetic Plan Anesthetic Plan: GA Disposition: Standard PACU
[2021-09-01 13:47] LABS: MANUAL DIFF FLAG NO
[2021-09-01 13:53] LABS: Basophils Percent Auto 0.3 % (0-2); Eosinophils Absolute Auto 0.1 X10*3/uL (0.0-0.4); Eosinophils Percent Auto 0.9 % (0-4); Hematocrit 41.3 % (37.0-47.0); Hemoglobin 12.7 g/dl (12.0-16.0); Imm Gran Abs Auto 0.02 X10*3/uL (0.00-0.03); Imm Gran Pct Auto 0.3 % (0.0-0.4); Lymphocytes Absolute Auto 1.2 X10*3/uL (1.2-4.9); Lymphocytes Percent Auto 16.2 % (20-40); Mean Corpuscular HGB Conc 30.8 g/dl (31.0-35.0); Mean Platelet Volume 9.8 fL (9.4-12.3); Monocytes Absolute Auto 0.5 X10*3/uL (0.1-1.2); Monocytes Percent Auto 6.8 % (2-11); Neutrophils Absolute Auto 5.7 x10*3/uL (2.0-8.3); Neutrophils Percent Auto 75.5 % (45-73); Platelet Count 247 X10*3/uL (160-400); Red Blood Count 4.54 X10*6/uL (4.20-5.50); Red Cell Distribution Width 13.8 % (11.0-16.0); White Blood Count 7.5 X10*3/uL (4.8-10.8)
[2021-09-01 14:32] LABS: Anion Gap 11 (12-20); Blood Urea Nitrogen 18 mg/dL (9-16); Carbon Dioxide 27 mmol/L (22-29); Chloride 105 mmol/L (96-108); Creatinine Clr Calc Pharmacy 92.7; Estimated Glomerular Filt Rate > 60; Potassium 4.2 mmol/L (3.3-5.1); Sodium 139 mmol/L (135-145)
[2021-09-01 14:39] LABS: MRSA Nasal PCR NEGATIVE (Negative); SA Nasal PCR NEGATIVE (Negative)
[2021-09-09] VITALS (21 sets, daily range): BP systolic 124–189; BP diastolic 62–95; PULSE 56–85; RESP 16–24; TEMP 36.1–36.8; O2SAT 98–100
--- NOTE | ~2021-09-09 | XR_ITS ---
EXAMINATION: XR KNEE, RIGHT CLINICAL INFORMATION: Status post right total knee arthroplasty COMPARISON: 06/01/2021 TECHNIQUE: Two views of the right knee. FINDINGS: There is a new total right knee arthroplasty. The distal femoral component articulates appropriately with the tibial plateau and patellar components. No periprosthetic lucency or fracture. Postoperative soft tissue and joint space gas. Anterior skin dean noted. No joint effusion. XR/XR knee RT 2V IMPRESSION: Total right knee arthroplasty in typical positioning and alignment.
[2021-09-09 08:25] LABS: COVID-19 Test Negative (Negative)
[2021-09-09] MEDS: Lactated Ringers 1,000 ML 100 ML IVCONT (10:01)
--- NOTE | 2021-09-09 10:15 | MHC.SHP ---
Pre-Procedural Eval Section A Date of Service: 09/09/21 The patient is an INPATIENT: No Changes since office visit: Yes Patient answered all questions; No Cold of Flu in the past 2 weeks, No New Medical Problems and No Changes in Medication The History & Physical has been completed within 30 days and I have reviewed it.: Yes Section B Chief Complaint: RT TKA Allergies: Allergies Allergy/AdvReac Type Severity Reaction Status Date / Time BANDAIDS Allergy Intermediate BLISTERS Uncoded 06/01/21 10:20 STERI-STRIPS Allergy Intermediate BLISTERS Uncoded 06/01/21 10:20 Plan I have reviewed the history and physical and performed a pertinent physical examination on my patient. No changes have occurred unless specified.
--- NOTE | 2021-09-09 12:42 | P.BOP_ITS ---
Brief Operative Note Date of Service: 09/09/21 Pre-op diagnosis: right knee OA Post-op diagnosis: same Procedure: Right TKA Implants: Stryler triathalon press fit posterior stabilized 11/05/18 Surgeon: Arjun Saeed MD Anesthesia: GETA and regional Was an Intermodal Dispatcher used for this Procedure?: Yes Intermodal Dispatcher: Benita Renee Estimated blood loss (mL): 200 IV fluids (mL): 1,000 Pathology: other Condition: stable Disposition: PACU
--- NOTE | 2021-09-09 12:50 | W.PM.OPN ---
Operative Note Operative Note Date of Service: 09/09/21 Narrative: Pre-op diagnosis: right knee OA Post-op diagnosis: same Procedure: Right TKA Implants: Stryler triathalon press fit posterior stabilized 11/05/18 Surgeon: Arjun Saeed MD Anesthesia: GETA and regional Was an Warehouse Logistics Manager used for this Procedure?: Yes Warehouse Logistics Manager: Benita Renee Estimated blood loss (mL): 200 IV fluids (mL): 1,000 Pathology: other Condition: stable Disposition: PACU Procedure in detail: The patient was brought to the operating room and prepped and draped in standard sterile fashion. A time-out was called to identify proper site proper procedure proper surgeon and IV antibiotics were administered. 1 g of IV tranexamic acid was administered. I began by making a midline incision to the retinaculum and performed a medial parapatellar arthrotomy. The patella was translated laterally and the knee was flexed up. The medial and PF compartments were eburnated.I performed a small medial peel and resected the infrapatellar fat pad. Wynot's line was then used to drill my intramedullary femoral guide and my 10mm distal femur cut was made in 5 degrees of valgus while protecting the soft tissues. I then measured a # 2 femur and placed my cutting guide and made my anterior posterior and chamfer cuts protecting the soft tissues at all times. A box cut was made to remove the PCL given her flexion stiffness. Once I was satisfied with my cuts I turned my attention to the tibia. I removed the meniscus and , using an external cutting guide, in line with the tibial crest and the third ray, I made my distal tibial cut in 0 deg slope, taking 2 mm off the medial plateau, while protecting the PCL the posterior soft tissues at all times. An extension block was used to confirm appropriate amount of bony resection. I then sized a #3 tibia and once I was satisfied that there was complete tibial coverage I placed my trial and with the trial femur in place took the knee through range of motion. I was satisfied with the flexion as well as the stability at 0, 30 and 90 degrees. She had some mild recurvatum so I trialed up to a 19. She was most stable with a 19. I then turned my attention to the patella. The patyella was severfely defromed with extensive osteophytes. I removed 1 cm from the undersurface of the patella and then trialed a 35a patellar button. Again the knee was taken through range of motion I was satisfied with the tracking. I then returned to the femur and drilled my femoral lug holes and prepared the tibia. A femoral bone plug was placed and the knee was irrigated copiously. I then press fit the patella, tibia and femur in standard fashion. I trialed different inserts until I selected a #19 insert. The final insert was placed and a 3 minutes iodine soak with local TXA was performed. The knee was then closed with a running Quill suture, a 3 0 Vicryl and dean on the skin. Patient was then placed in sterile dressing and brought to recovery room in stable condition there were no known complications.
[2021-09-09] MEDS: oxyCODONE HCl Immed Release 5 MG TABLET 10 MG PO (13:14)
[2021-09-09] MEDS: ondansetron HCL 4 MG/2 ML VIAL IVPUSH (13:14)
[2021-09-09] MEDS: fentaNYL citrate/PF 100 MCG/2 ML VIAL 50 MCG IVPUSH ×4 (13:17→13:55)
[2021-09-09] MEDS: fentaNYL citrate/PF 100 MCG/2 ML VIAL 25 MCG IVPUSH ×4 (14:15→14:59)
[2021-09-09] MEDS: Dextrose 5 % and 0.45 % NaCl 1,000 ML 80 ML IVCONT (16:44)
--- NOTE | 2021-09-09 16:57 | PM.IMCN ---
History of Present Illness Data of Consult Service Date: 09/09/21 Primary Care Provider: Anushka Figueredo DO HPI Reason for consult: right knee pain, htn 60F with history of OA, presented for elective right knee arthroplasty. she also has history of HTN treated with lisinopril and amlodipine. perioperatively blood pressure elevated, currently 184/86. She reports significant pain at the surgical site. Otherwise no complaints, no shortness of breath no chest pain, no fever no chills. Review of Systems Review of Systems: Constitutional: Denies fever, denies Chills Eyes: denies blurry vision ENT: denies sore throat CVS: denies chest pain Respiratory: Denies dyspnea GI: no abdominal pain : denies dysuria MSK: denies neck pain Skin: denies rash Neuro: denies specific motor weakness Psych: denies suicidal ideation Endocrine: denies heat/cold intolerance Hematologic: denies easy bleeding Allergy: denies hives PMFSH Medical History (Updated 09/09/21 @ 17:00 by Adam Stewart MD) Arthritis Asthma Back pain Cancer COVID-19 vaccine series completed History of headache HTN (hypertension) Hx of radiation therapy Impingement syndrome of right shoulder Personal history of tuberculosis Wears dentures Family History Father No problems noted. Mother No problems noted. 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 If so, by whom?: No Are you DNR?: No Advance Directives: No Advance Directives Information Provided: Yes (informational brochure given) Advance Directives on File: No Recently lost weight without trying: No Eating poorly because of decreased appetite: No Nutrition Risks: No Nutritional Risk Poor oral hygiene: No (upper & lower full dentures) Current occupational status: disabled Current occupation: Right Handed Meds Allergies Allergy/AdvReac Type Severity Reaction Status Date / Time BANDAIDS Allergy Intermediate BLISTERS Uncoded 06/01/21 10:20 STERI-STRIPS Allergy Intermediate BLISTERS Uncoded 06/01/21 10:20 Active Medications: Current Medications Acetaminophen (Acetaminophen 325 Mg Tablet) 650 mg PO Q6H PRN PRN Reason: Pain, Mild (Pain Scale 1-3) Albuterol Sulfate (Albuterol Sulfate 90 Mcg 8 Gm Inhaler) 2 puff INHALE Q4H PRN PRN Reason: Shortness Of Breath Amitriptyline HCl (Amitriptyline Hcl 10 Mg Tablet) 10 mg PO BEDTIME [facility] Amlodipine Besylate (Amlodipine Besylate 10 Mg Tablet) 10 mg PO DAILY [facility]; Protocol Celecoxib (Celecoxib 200 Mg Capsule) 200 mg PO BID [facility] Docusate Sodium (Docusate Sodium 100 Mg Capsule) 100 mg PO BID [facility] Fentanyl (Fentanyl Citrate/Pf 100 Mcg/2 Ml Vial) 25 mcg IVPUSH Q5M PRN; Protocol PRN Reason: Pain, Moderate (Pain Scale 4-6 Last Admin: 09/09/21 14:59 Dose: 25 mcg Documented by: Hydromorphone HCl (Hydromorphone Hcl 0.5 Mg/0.5 Ml Syringe) 0.25 mg IVPUSH Q4H PRN; Protocol PRN Reason: Pain, Severe (Pain Scale 7-10) Cefazolin Sodium/Dextrose (Ancef) 2 gm in 50 mls @ 100 mls/hr IV POSTOP ONE Stop: 09/09/21 17:29 Lisinopril (Lisinopril 10 Mg Tablet) 30 mg PO DAILY [facility]; Protocol Multivitamins/Vitamin C (Multivitamin Tablet) 1 tab PO DAILY [facility] Ondansetron HCl (Ondansetron Hcl 4 Mg/2 Ml Vial) 4 mg IVPUSH Q8H PRN PRN Reason: Nausea and Vomiting Oxycodone HCl (Oxycodone Hcl Immed Release 5 Mg Tablet) 5 mg PO Q4H PRN PRN Reason: Pain, Moderate (Pain Scale 4-6 Oxycodone HCl (Oxycodone Hcl Er 10 Mg Tab.Er.12h) 10 mg PO BID [facility] Sodium Chloride (0.9 % Sodium Chloride Flush 3 Ml Syringe) 3 ml IVFLUSH QSHIFT GEO Last Admin: 09/09/21 16:44 Dose: Not Given Documented by: Home Medications Medication Instructions Recorded Confirmed Last Taken Type albuterol sulfate 90 mcg/actuation 2 puff INHALATION Q4H PRN 09/09/20 09/01/21 10/06/20 History aerosol inhaler amlodipine 10 mg tablet 10 mg PO DAILY 09/09/20 09/01/21 10/07/20 05:30 History sennosides 8.6 mg tablet 17.2 mg PO DAILY 09/09/20 09/01/21 10/06/20 History amitriptyline 10 mg tablet 10 mg PO BEDTIME 06/01/21 09/01/21 Unknown History lisinopril 30 mg tablet 30 mg PO DAILY 06/01/21 09/01/21 Unknown History naloxone 4 mg/actuation nasal 1 spray INTRANASAL ONCE PRN 06/01/21 09/01/21 Unknown History spray (Narcan) nystatin 100,000 unit/gram topical 1 appl TOPICAL ONCE PRN 06/01/21 09/01/21 Unknown History powder vit C 250 mg-vit E 90 mg-zinc 40 1 cap PO DAILY 06/01/21 09/01/21 Unknown History mg-copper 1 [id number] capsule (PreserVision AREDS-2) Physical Exam Vital Signs and Narrative: Vital Signs: Last Vital Signs Temp 97.4 F 09/09/21 16:40 Pulse 73 09/09/21 16:40 Resp 18 09/09/21 16:40 BP 184/86 H 09/09/21 16:40 Pulse Ox 100 09/09/21 16:40 BMI result Body Mass Index 40.4 General: no acute distress HEENT: atraumatic Neck: normal to visual inspection CVS: S1, S2, RRR Resp: CTA bilateral Chest: non tender GI: soft, non tender, non distended : no CVA tenderness Skin: no rashes Extremities: no edema Neuro: Oriented X3, grossly intact Psych: cooperative Results Labs CBC and Chem 7: 09/01/21 13:45 09/01/21 13:45 Labs: Laboratory Results - last 24 hr 09/09/21 08:00 COVID-19 ([facility]) Negative COVID-19 Clin Com See Note Imaging Radiologist's Impressions: Impressions Knee X-Ray 09/09/21 14:13 IMPRESSION: Total right knee arthroplasty in typical positioning and alignment. Assessment and Plan (1) HTN (hypertension): Status: Acute 60F presented for elective right knee arthroplasty for osteoarthritis, noted to have elevated blood pressures s/p Right kne arthroplasty management per ortho hypertension- uncontrolled continue home amlodipine, lisinporil stop ivf as patient eating now would focus on pain control for now, if still elevated once pain is controlled then will add more anithypertensives
[2021-09-09] MEDS: oxyCODONE HCl Immed Release 5 MG TABLET PO ×2 (17:07→21:20)
[2021-09-09] MEDS: ceFAZolin Sodium/Dextrose,Iso 2 GM/50 ML PIGGYBACK IV (17:07)
[2021-09-09] MEDS: HYDROmorphone HCl 0.5 MG/0.5 ML SYRINGE 0.25 MG IVPUSH (18:18)
[2021-09-09] MEDS: Celecoxib 200 MG CAPSULE PO (20:09)
[2021-09-09] MEDS: Amitriptyline HCl 10 MG TABLET PO (20:09)
[2021-09-09] MEDS: Docusate Sodium 100 MG CAPSULE PO (20:09)
[2021-09-09] MEDS: lisinopriL 2.5 MG TABLET PO (20:09)
[2021-09-09] MEDS: oxyCODONE HCl ER 10 MG TAB.ER.12H PO (20:09)
[2021-09-09] MEDS: Acetaminophen 325 MG TABLET 650 MG PO (20:09)
[2021-09-10] VITALS (11 sets, daily range): BP systolic 135–184; BP diastolic 57–88; PULSE 74–87; RESP 16–18; TEMP 36.3–36.9; O2SAT 95–98
[2021-09-10] MEDS: HYDROmorphone HCl 0.5 MG/0.5 ML SYRINGE IVPUSH (04:39)
[2021-09-10] MEDS: 0.9 % Sodium Chloride Flush 3 ML SYRINGE IVFLUSH ×4 (04:41→20:08)
[2021-09-10 06:27] LABS: Hemoglobin 13.4 g/dl (12.0-16.0); Monocytes Absolute Auto 0.8 X10*3/uL (0.1-1.2); Neutrophils Percent Auto 83.9 % (45-73); PLT CLUMP 1; Red Cell Distribution Width 13.7 % (11.0-16.0); SCAN SMEAR FLAG 1
[2021-09-10 06:29] LABS: Eosinophils Percent Auto 0.2 % (0-4); Hematocrit 43.6 % (37.0-47.0); Imm Gran Abs Auto 0.05 X10*3/uL (0.00-0.03); Imm Gran Pct Auto 0.6 % (0.0-0.4); Lymphocytes Absolute Auto 0.5 X10*3/uL (1.2-4.9); MANUAL DIFF FLAG SCAN; Mean Corpuscular HGB Conc 30.7 g/dl (31.0-35.0); Mean Corpuscular Hemoglobin 27.9 pg (27.0-33.0); Mean Corpuscular Volume 90.8 fL (80.0-98.0); Monocytes Percent Auto 9.3 % (2-11); Neutrophils Absolute Auto 7.6 x10*3/uL (2.0-8.3)
[2021-09-10 06:43] LABS: Anion Gap 14 (12-20); Blood Urea Nitrogen 10 mg/dL (9-16); Calcium 9.6 mg/dL (8.4-10.2); Carbon Dioxide 26 mmol/L (22-29); Chloride 102 mmol/L (96-108); Creatinine Clr Calc Pharmacy 88.7; Estimated Glomerular Filt Rate > 60; Glucose Fasting 147 mg/dL (60-99); Potassium 4.5 mmol/L (3.3-5.1); Sodium 137 mmol/L (135-145)
[2021-09-10 06:55] LABS: White Blood Count 9.1 X10*3/uL (4.8-10.8)
[2021-09-10 06:57] LABS: SLIDE REVIEW VERIFIED
[2021-09-10] MEDS: oxyCODONE HCl ER 10 MG TAB.ER.12H PO ×2 (07:19→20:08)
[2021-09-10] MEDS: oxyCODONE HCl Immed Release 5 MG TABLET PO ×4 (07:19→20:36)
[2021-09-10] MEDS: Multivitamin TABLET 1 TAB PO (07:19)
[2021-09-10] MEDS: amLODIPine Besylate 10 MG TABLET PO (07:19)
[2021-09-10] MEDS: lisinopriL 10 MG TABLET 30 MG PO (07:19)
[2021-09-10] MEDS: Celecoxib 200 MG CAPSULE PO ×2 (07:19→20:08)
[2021-09-10] MEDS: Docusate Sodium 100 MG CAPSULE PO ×2 (07:19→20:08)
--- NOTE | 2021-09-10 08:53 | P.PNOP_ITS ---
Subjective Subjective Date of Service: 09/10/21 Interval history: POD1 s/p RTKA. Patient resting comfortably in bed. No overnight events. Pain is well managed. Physical Exam Vital Signs: Vital Signs: Last Vital Signs Temp 98.0 F 09/10/21 07:11 Pulse 77 09/10/21 08:05 Resp 18 09/10/21 07:11 BP 177/80 H 09/10/21 08:05 Pulse Ox 98 09/10/21 08:05 BMI result Body Mass Index 40.4 Const: General: cooperative, healthy appearing and no acute distress Resp: Effort & Inspection: normal respiratory effort and able to speak in complete sentences Cardio: Rate: regular rate Peripheral pulses: Peripheral pulses 2+ throughout GI: Palpation (GI): Soft to palpation Skin: Lesions: no lesions Rashes: no rashes Extrem: Other: Right knee no ecchymosis or erythema. Aquacel is clean, dry, and intact. NVI. Procedures Date of Service Date of Service: 09/10/21 Progress Note: A&P Assessment and plan (1) Status post arthroscopy of right knee: Status: Acute Assessment and Plan: Continue pain mgmnt Begin ASA for dvt ppx begin PT for RTKA Dispo planning-Pending PT eval, pain mgmnt Fall Risk Details Current Medications: Current Medications Acetaminophen (Acetaminophen 325 Mg Tablet) 650 mg PO Q6H PRN PRN Reason: Pain, Mild (Pain Scale 1-3) Last Admin: 09/09/21 20:09 Dose: 650 mg Documented by: Albuterol Sulfate (Albuterol Sulfate 90 Mcg 8 Gm Inhaler) 2 puff INHALE Q4H PRN PRN Reason: Shortness Of Breath Amitriptyline HCl (Amitriptyline Hcl 10 Mg Tablet) 10 mg PO BEDTIME [facility] Last Admin: 09/09/21 20:09 Dose: 10 mg Documented by: Amlodipine Besylate (Amlodipine Besylate 10 Mg Tablet) 10 mg PO DAILY [facility]; Protocol Last Admin: 09/10/21 07:19 Dose: 10 mg Documented by: Celecoxib (Celecoxib 200 Mg Capsule) 200 mg PO BID [facility] Last Admin: 09/10/21 07:19 Dose: 200 mg Documented by: Docusate Sodium (Docusate Sodium 100 Mg Capsule) 100 mg PO BID [facility] Last Admin: 09/10/21 07:19 Dose: 100 mg Documented by: Fentanyl (Fentanyl Citrate/Pf 100 Mcg/2 Ml Vial) 25 mcg IVPUSH Q5M PRN; Protocol PRN Reason: Pain, Moderate (Pain Scale 4-6 Last Admin: 09/09/21 14:59 Dose: 25 mcg Documented by: Hydromorphone HCl (Hydromorphone Hcl 0.5 Mg/0.5 Ml Syringe) 0.5 mg IVPUSH Q4H PRN; Protocol PRN Reason: Pain, Severe (Pain Scale 7-10) Last Admin: 09/10/21 04:39 Dose: 0.5 mg Documented by: Lisinopril (Lisinopril 10 Mg Tablet) 30 mg PO DAILY [facility]; Protocol Last Admin: 09/10/21 07:19 Dose: 30 mg Documented by: Multivitamins/Vitamin C (Multivitamin Tablet) 1 tab PO DAILY [facility] Last Admin: 09/10/21 07:19 Dose: 1 tab Documented by: Ondansetron HCl (Ondansetron Hcl 4 Mg/2 Ml Vial) 4 mg IVPUSH Q8H PRN PRN Reason: Nausea and Vomiting Oxycodone HCl (Oxycodone Hcl Immed Release 5 Mg Tablet) 5 mg PO Q4H PRN PRN Reason: Pain, Moderate (Pain Scale 4-6 Last Admin: 09/10/21 07:19 Dose: 5 mg Documented by: Oxycodone HCl (Oxycodone Hcl Er 10 Mg Tab.Er.12h) 10 mg PO BID [facility] Last Admin: 09/10/21 07:19 Dose: 10 mg Documented by: Sodium Chloride (0.9 % Sodium Chloride Flush 3 Ml Syringe) 3 ml IVFLUSH QSHIFT [facility] Last Admin: 09/10/21 07:20 Dose: 3 ml Documented by: Time Spent With Patient Time: Total time spent is greater than 50% in coordination of care (as documented) at patient's floor/unit and/or counseling patient: Time with patient: less than 15 minutes Quality Stroke Does the patient have a stroke diagnosis?: No VTE Prior VTE?: No VTE Risk Level:: Surgical - very high VTE Device Contraindication: N/A - Device Ordered VTE Drug Contraindication: N/A - Med Ordered
--- NOTE | 2021-09-10 09:51 | HO.PM.IMPN ---
Subjective Subjective Date of Service: 09/10/21 Interval History: cc: knee pain interval history: pain improved Cardiovascular Cardiovascular: Reports no additional cardiovascular complaints Respiratory Respiratory: Reports no additional respiratory complaints Physical Exam Vital Signs: Vital Signs: Last Vital Signs Temp 98.0 F 09/10/21 07:11 Pulse 77 09/10/21 08:05 Resp 18 09/10/21 07:11 BP 177/80 H 09/10/21 08:05 Pulse Ox 98 09/10/21 08:05 BMI result Body Mass Index 40.4 General: AO X 3, no acute distress Resp: CTA bilateral, no accessory muscles used CVS: S1,S2,RRR GI: soft, non tender, non distended Neuro: motor grossly intact, alert Psych: appropriate affect, appropriate insight Objective Data Active Medications Acetaminophen (Acetaminophen 325 Mg Tablet) 650 mg PO Q6H PRN PRN Reason: Pain, Mild (Pain Scale 1-3) Last Admin: 09/09/21 20:09 Dose: 650 mg Documented by: NICK Albuterol Sulfate (Albuterol Sulfate 90 Mcg 8 Gm Inhaler) 2 puff INHALE Q4H PRN PRN Reason: Shortness Of Breath Amitriptyline HCl (Amitriptyline Hcl 10 Mg Tablet) 10 mg PO BEDTIME [facility] Last Admin: 09/09/21 20:09 Dose: 10 mg Documented by: NICK Amlodipine Besylate (Amlodipine Besylate 10 Mg Tablet) 10 mg PO DAILY [facility]; Protocol Last Admin: 09/10/21 07:19 Dose: 10 mg Documented by: GUILHERME Aspirin (Aspirin 325 Mg Tablet) 325 mg PO BID [facility] Celecoxib (Celecoxib 200 Mg Capsule) 200 mg PO BID [facility] Last Admin: 09/10/21 07:19 Dose: 200 mg Documented by: GUILHERME Docusate Sodium (Docusate Sodium 100 Mg Capsule) 100 mg PO BID [facility] Last Admin: 09/10/21 07:19 Dose: 100 mg Documented by: GUILHERME Fentanyl (Fentanyl Citrate/Pf 100 Mcg/2 Ml Vial) 25 mcg IVPUSH Q5M PRN; Protocol PRN Reason: Pain, Moderate (Pain Scale 4-6 Last Admin: 09/09/21 14:59 Dose: 25 mcg Documented by: AUSTEN Hydromorphone HCl (Hydromorphone Hcl 0.5 Mg/0.5 Ml Syringe) 0.5 mg IVPUSH Q4H PRN; Protocol PRN Reason: Pain, Severe (Pain Scale 7-10) Last Admin: 09/10/21 04:39 Dose: 0.5 mg Documented by: NICK Lisinopril (Lisinopril 10 Mg Tablet) 30 mg PO DAILY [facility]; Protocol Last Admin: 09/10/21 07:19 Dose: 30 mg Documented by: GUILHERME Multivitamins/Vitamin C (Multivitamin Tablet) 1 tab PO DAILY [facility] Last Admin: 09/10/21 07:19 Dose: 1 tab Documented by: GUILHERME Ondansetron HCl (Ondansetron Hcl 4 Mg/2 Ml Vial) 4 mg IVPUSH Q8H PRN PRN Reason: Nausea and Vomiting Oxycodone HCl (Oxycodone Hcl Immed Release 5 Mg Tablet) 5 mg PO Q4H PRN PRN Reason: Pain, Moderate (Pain Scale 4-6 Last Admin: 09/10/21 07:19 Dose: 5 mg Documented by: GUILHERME Oxycodone HCl (Oxycodone Hcl Er 10 Mg Tab.Er.12h) 10 mg PO BID [facility] Last Admin: 09/10/21 07:19 Dose: 10 mg Documented by: GUILHERME Sodium Chloride (0.9 % Sodium Chloride Flush 3 Ml Syringe) 3 ml IVFLUSH QSHIFT [facility] Last Admin: 09/10/21 07:20 Dose: 3 ml Documented by: GUILHERME Labs CBC & Chem 7: 09/10/21 06:11 09/10/21 06:11 Labs: Laboratory Results - last 24 hr 09/10/21 09/10/21 06:11 06:11 MCV 90.8 MCH 27.9 MCHC 30.7 L RDW 13.7 Plt Count TNP MPV TNP Immature Gran % (Auto) 0.6 H Neut % (Auto) 83.9 H Lymph % (Auto) 6.0 L [place] % (Auto) 9.3 Eos % (Auto) 0.2 Baso % (Auto) 0.0 Lymph # (Auto) 0.5 L [place] # (Auto) 0.8 Eos # (Auto) 0.0 Baso # (Auto) 0.0 Abs Immat Gran (auto) 0.05 H Absolute Neuts (auto) 7.6 Absolute Nucleated RBC 0.000 Nucleated RBC % (auto) 0.0 Smear Tech's Comments VERIFIED Anion Gap 14 Estim Creat Clear Calc 88.7 Estimated GFR > 60 Fasting Glucose 147 H Calcium 9.6 Assessment and Plan (1) Status post arthroscopy of right knee: Status: Acute Assessment and Plan: 60F presented for elective right knee arthroplasty for osteoarthritis, noted to have elevated blood pressures s/p Right kne arthroplasty POD 1 management per ortho hypertension still elevaged despite reported pain control continue home amlodipine, lisinporil hesitant to start new antihypertensives in perioperative period, will monitor for now, if persistently elevated will consider increasing meds. Quality Stroke Does the patient have a stroke diagnosis?: No VTE Prior VTE?: No VTE Risk Level:: Surgical - very high VTE Device Contraindication: N/A - Device Ordered VTE Drug Contraindication: N/A - Med Ordered
--- NOTE | 2021-09-10 09:52 | MHC.CDI.CONC ---
CDI Concurrent Query Documentation Clarification: PHYSICIAN'S DOCUMENTATION REQUEST Date of Query: 09/10/21 0953 Patient Name: Gretel Bowie Admit Date: 09/09/21 Dear Doctor, A review of the medical record indicates additional documentation may be needed. Please review below and update the documentation accordingly. Risk Factors/Clinical Indicators/Treatments Body Mass Index: 40.0 5' 1 If possible, please provide an associated diagnosis related to the abnormal BMI, such as: BMI For a BMI >= 40: Overweight Obesity Due to excess calories Drug induced Due to other cause Morbid Obesity Other or unknown Use of terms such as suspected, likely, concern for, or probable (associated with a specific diagnosis that is being evaluated, monitored, or treated as if it exists) are acceptable and can be coded in the inpatient setting, when documented at the time of discharge. Thank you, Morena Carballo [facility], cdis Extension: [phone] Please use your independent medical judgment in providing your response. THIS QUERY IS PART OF THE PERMANENT MEDICAL RECORD Provider Response: Obesity
[2021-09-10] MEDS: Aspirin 325 MG TABLET PO ×2 (12:29→20:08)
--- NOTE | 2021-09-10 13:38 | HO.POSTANES ---
Post Anesthesia Evaluation Post Anesthesia Evaluation Vital Signs: Vital Signs Temp Pulse Resp BP Pulse Ox 09/10/21 11:04 97 09/10/21 11:02 98.4 F 81 16 138/57 L 97 09/10/21 08:05 77 177/80 H 98 09/10/21 07:11 98.0 F 77 18 177/80 H 98 09/10/21 05:30 74 175/69 H 09/10/21 04:00 97.9 F 87 16 183/88 H 98 Anesthesia: Nerve Block and General Mental Status: Awake Pain Control: Satisfactory Nausea/Vomiting: None Hydration: Adequate Anesthesia-Related Issues: No Anes. Related Issues
--- NOTE | 2021-09-10 16:00 | MHC.CM.PN ---
nurse upper caser note patient was alert and orientated , and spoke Slovak,she l has her grandson 21 yrs and granddaughter 14 yrs old living with her her daughter also lives close by. she has [employer] for pre parole counseling aide 12.45 hrs weekly Tuesday through Tuesday aND 1 HOUR eACH DAY ON THE WEEKEND. SHE REPORTED IN THE PAST SHE HAS ? B AGENCY , BUT HER THERAPIST WAS NIEVES RAMOS CALLED TO HER AND SHE IS FROm THE [facility]. REFERRAL INIATEE TO THEM FOR HOME PHYSICAL THEAPRY TO START TOMORROW PATIENT LIVES ON THE FIRST FLOOR AND HAS STAIRS TO HER BEDROOMS, SHE HADS A WALKER AND COMMODE AT HOME SHE REQUIRES ASSISTANCE WITH [facility] AND SOME WITH HER ADLS AT TIMES , THEY ALSO HELP WITH COOKING AND CLEANING SHE REPORTED HER PCP IS JIN Tavarez ;last seen about 3 months ago , she confirmed that she receive her moderna covid vaccination january /january 2021 and has not yet recived a booster. educated about the importance of having a health care proxy but did not want to [id number] one at this time she reported s/p histroy of cancer with xrt treaments about 6 years ago and t.b when she was in her late twebntys or early thirities (she could not rember the exact dates) discharge plan home wu new referral to [facility] for home physical therapy to start on the weekend checked with orthopedic surgical valerio henning at discharge called to frantz [phone] at [facility] for ins auth for the hvna to go out for home pt, this was given and [id number] to the na self resumption of her pre parole counseling aide through [employer] transportation family but will re check with physical therapist tomorrow pcp jin escboedo medicare imm explained and given to patient
[2021-09-10] MEDS: ondansetron HCL 4 MG/2 ML VIAL IVPUSH (16:33)
[2021-09-10] MEDS: Amitriptyline HCl 10 MG TABLET PO (20:08)
[2021-09-11 04:00] VITALS: BP 152/71; PULSE 65; RESP 16; TEMP 36.1; O2SAT 95
[2021-09-11] MEDS: oxyCODONE HCl Immed Release 5 MG TABLET PO ×3 (05:35→13:47)
[2021-09-11 05:42] LABS: MANUAL DIFF FLAG NO
[2021-09-11 05:48] LABS: Basophils Percent Auto 0.1 % (0-2); Hematocrit 36.7 % (37.0-47.0); Hemoglobin 11.3 g/dl (12.0-16.0); Imm Gran Abs Auto 0.07 X10*3/uL (0.00-0.03); Imm Gran Pct Auto 0.6 % (0.0-0.4); Lymphocytes Absolute Auto 0.6 X10*3/uL (1.2-4.9); Lymphocytes Percent Auto 4.5 % (20-40); Mean Corpuscular HGB Conc 30.8 g/dl (31.0-35.0); Mean Corpuscular Hemoglobin 28.1 pg (27.0-33.0); Mean Corpuscular Volume 91.3 fL (80.0-98.0); Monocytes Percent Auto 8.3 % (2-11); Neutrophils Absolute Auto 10.5 x10*3/uL (2.0-8.3); Neutrophils Percent Auto 86.5 % (45-73); Platelet Count 183 X10*3/uL (160-400); Red Blood Count 4.02 X10*6/uL (4.20-5.50); White Blood Count 12.2 X10*3/uL (4.8-10.8)
[2021-09-11 06:22] LABS: Anion Gap 13 (12-20); Blood Urea Nitrogen 15 mg/dL (9-16); Calcium 9.2 mg/dL (8.4-10.2); Carbon Dioxide 25 mmol/L (22-29); Chloride 105 mmol/L (96-108); Creatinine Clr Calc Pharmacy 103.4; Estimated Glomerular Filt Rate > 60; Glucose Fasting 136 mg/dL (60-99); Potassium 4.3 mmol/L (3.3-5.1); Sodium 139 mmol/L (135-145)
[2021-09-11] MEDS: Celecoxib 200 MG CAPSULE PO (07:10)
[2021-09-11] MEDS: 0.9 % Sodium Chloride Flush 3 ML SYRINGE IVFLUSH (07:10)
[2021-09-11] MEDS: Aspirin 325 MG TABLET PO (07:10)
[2021-09-11] MEDS: amLODIPine Besylate 10 MG TABLET PO (07:11)
[2021-09-11] MEDS: oxyCODONE HCl ER 10 MG TAB.ER.12H PO (07:11)
[2021-09-11] MEDS: Multivitamin TABLET 1 TAB PO (07:11)
[2021-09-11] MEDS: Docusate Sodium 100 MG CAPSULE PO (07:11)
[2021-09-11] MEDS: lisinopriL 10 MG TABLET 30 MG PO (07:11)
[2021-09-11 07:41] VITALS: BP 127/68; PULSE 71; RESP 16; TEMP 36.7; O2SAT 98
--- NOTE | 2021-09-11 08:03 | PM.DS ---
DS: Providers Provider Date of Service: 09/11/21 Date of admission: 09/09/21 07:57 Primary care physician: Anushka Francis DO Consults: 09/09/21 16:35 Consult to Hospitalist Routine Consulting Provider: Hospitalist Reason For Exam: routine medical management DS: Diagnosis Discharge Diagnosis (1) Status post arthroscopy of right knee: Status: Acute DS: Summary Time Spent with Patient Time attestation: Total time spent providing and/or coordinating discharge services: Discharge coordination time: Less than 30 minutes Quality: Stroke Does the patient have a stroke diagnosis?: No Physical Exam Vital Signs: Vital Signs: Last Vital Signs Temp 98.1 F 09/11/21 07:41 Pulse 71 09/11/21 07:41 Resp 16 09/11/21 07:41 BP 127/68 09/11/21 07:41 Pulse Ox 98 09/11/21 07:41 BMI result Body Mass Index 40.4 Const: General: cooperative, healthy appearing and no acute distress Resp: Effort & Inspection: normal respiratory effort and able to speak in complete sentences Cardio: Rate: regular rate Peripheral pulses: Peripheral pulses 2+ throughout GI: Palpation (GI): Soft to palpation Skin: Lesions: no lesions Rashes: no rashes Extrem: Other: Right knee no erythema or drainage. Acticoat is clean dry and intact. Malissa intact. NVI. DS: Data Data Completed and Pending Completed studies during hospitalization [Text1]: Procedures Release Left Knee Joint, Open Approach (10/07/20) Removal of Liner from Left Knee Joint, Open Approach (10/07/20) Supplement Left Knee Joint, Tibial Surface with Liner, Open Approach (10/07/20) Pending studies at discharge: Pending at discharge 09/09/21 12:25 Surgical [PTH] Routine Labs on day of discharge: Laboratory Results - last 24 hr 09/11/21 09/11/21 05:13 05:13 WBC 12.2 H RBC 4.02 L Hgb 11.3 L Hct 36.7 L MCV 91.3 MCH 28.1 MCHC 30.8 L RDW 14.0 Plt Count 183 D MPV 11.0 Immature Gran % (Auto) 0.6 H Neut % (Auto) 86.5 H Lymph % (Auto) 4.5 L [place] % (Auto) 8.3 Eos % (Auto) 0.0 Baso % (Auto) 0.1 Lymph # (Auto) 0.6 L [place] # (Auto) 1.0 Eos # (Auto) 0.0 Baso # (Auto) 0.0 Abs Immat Gran (auto) 0.07 H Absolute Neuts (auto) 10.5 H Absolute Nucleated RBC 0.000 Nucleated RBC % (auto) 0.0 Sodium 139 Potassium 4.3 Chloride 105 Carbon Dioxide 25 Anion Gap 13 BUN 15 Creatinine 0.60 Estim Creat Clear Calc 103.4 Estimated GFR > 60 Fasting Glucose 136 H Calcium 9.2 Discharge Plan Discharge Patient Disposition: Home Health Service Discharge Diagnosis: s/p rt TKA Referrals: [facility] [Outside] - 1 Day [facility] (SHAMIKA RACHEL IS OFF THIS WEEKEND BUT WILLING TO PICK YOU UP ON Tuesday schedule permitting) i told the vna you requested her. orthopedic surgical follow up per disacharge instructions pcp anushka francis instructed to call for post hospitla discharge foollow up transportation family medicare imm completed on 09/11/21 edu ated about the imp[ortance of having a health care proxy declined all discharge paperwork completed) Benita Renee PA-C [Physician [employer]] - 2 Weeks (09/21/21 @ 1:00pm) Discharge Medications: New acetaminophen 325 mg Tablet 650 mg PO Q6H PRN (Reason: Pain, Mild (Pain Scale 1-3)) 30 Days Qty: 240 RF: 0 aspirin 325 mg Tablet 325 mg PO BID 42 Days Qty: 84 RF: 0 celecoxib 200 mg Capsule 200 mg PO BID 30 Days Qty: 60 RF: 0 docusate sodium 100 mg Capsule 100 mg PO BID 30 Days Qty: 60 RF: 0 oxycodone 5 mg Tablet 5 mg PO Q4H PRN (Reason: Pain, Moderate (Pain Scale 4-6) 7 Days Qty: 42 RF: 0 Continued oxycodone 5 mg tablet 5 mg PO DAILY PRN (Reason: pain) 20 Days Qty: 20 RF: 0 PreserVision AREDS-2 250-90-40-1 mg capsule 1 cap PO DAILY RF: 0 lisinopril 30 mg tablet 30 mg PO DAILY RF: 0 amitriptyline 10 mg tablet 10 mg PO BEDTIME RF: 0 nystatin 100,000 unit/gram powder 1 appl topical ONCE PRN (Reason: Rash) RF: 0 Narcan 4 mg/actuation spray,non-aerosol 1 spray intranasal ONCE PRN (Reason: Drug Intoxication Symptoms) RF: 0 albuterol sulfate 90 mcg/actuation HFA aerosol inhaler 2 puff inhalation Q4H PRN (Reason: Shortness Of Breath) RF: 0 amlodipine 10 mg tablet 10 mg PO DAILY RF: 0 sennosides 8.6 mg tablet 17.2 mg PO DAILY RF: 0 Discontinued acetaminophen 325 mg Tablet 650 mg PO Q6H PRN (Reason: Pain, Mild (Pain Scale 1-3)) 30 Days Qty: 240 RF: 0 Discharge Orders: Discharge Order (Routine); Ordered 09/11/21 Ordered By: Benita Renee Diet: advance to usual diet Activity on Discharge: Use cane or walker Stand Alone Forms: Patient Portal Discharge page Care Plan Goals: Restore fxn to right knee Health Concerns: none Plan of Treatment: Physical Therapy for ROM 0-120, quad strength, gait training. Use walker for ambulation Limit stair climbing, No shower, No tub bath, No driving Continue anticoagulant, Aspirin for 6 weeks Keep Aquacel dressing clean, dry and intact. Follow up with orthopedics in 2 weeks Assessment: Stable for d/c
[2021-09-11 08:15] VITALS: BP 127/68; PULSE 71; O2SAT 98
--- NOTE | 2021-09-11 09:32 | HO.PM.IMPN ---
Subjective Subjective Date of Service: 09/11/21 Interval History: cc: knee pain interval history: pain improved Cardiovascular Cardiovascular: Reports no additional cardiovascular complaints Respiratory Respiratory: Reports no additional respiratory complaints Physical Exam Vital Signs: Vital Signs: Last Vital Signs Temp 98.1 F 09/11/21 07:41 Pulse 71 09/11/21 08:15 Resp 16 09/11/21 07:41 BP 127/68 09/11/21 08:15 Pulse Ox 98 09/11/21 08:15 BMI result Body Mass Index 40.4 General: AO X 3, no acute distress Resp:? CTA bilateral, no accessory muscles used CVS: S1,S2,RRR GI: soft, non tender, non distended Neuro:? motor grossly intact, alert Psych: appropriate affect, appropriate insight? Objective Data Active Medications Acetaminophen (Acetaminophen 325 Mg Tablet) 650 mg PO Q6H PRN PRN Reason: Pain, Mild (Pain Scale 1-3) Last Admin: 09/09/21 20:09 Dose: 650 mg Documented by: NICK Albuterol Sulfate (Albuterol Sulfate 90 Mcg 8 Gm Inhaler) 2 puff INHALE Q4H PRN PRN Reason: Shortness Of Breath Amitriptyline HCl (Amitriptyline Hcl 10 Mg Tablet) 10 mg PO BEDTIME [facility] Last Admin: 09/10/21 20:08 Dose: 10 mg Documented by: NICK Amlodipine Besylate (Amlodipine Besylate 10 Mg Tablet) 10 mg PO DAILY [facility]; Protocol Last Admin: 09/11/21 07:11 Dose: 10 mg Documented by: LISA Aspirin (Aspirin 325 Mg Tablet) 325 mg PO BID [facility] Last Admin: 09/11/21 07:10 Dose: 325 mg Documented by: LISA Celecoxib (Celecoxib 200 Mg Capsule) 200 mg PO BID [facility] Last Admin: 09/11/21 07:10 Dose: 200 mg Documented by: LISA Docusate Sodium (Docusate Sodium 100 Mg Capsule) 100 mg PO BID [facility] Last Admin: 09/11/21 07:11 Dose: 100 mg Documented by: LISA Fentanyl (Fentanyl Citrate/Pf 100 Mcg/2 Ml Vial) 25 mcg IVPUSH Q5M PRN; Protocol PRN Reason: Pain, Moderate (Pain Scale 4-6 Last Admin: 09/09/21 14:59 Dose: 25 mcg Documented by: AUSTEN Hydromorphone HCl (Hydromorphone Hcl 0.5 Mg/0.5 Ml Syringe) 0.5 mg IVPUSH Q4H PRN; Protocol PRN Reason: Pain, Severe (Pain Scale 7-10) Last Admin: 09/10/21 04:39 Dose: 0.5 mg Documented by: NICK Lisinopril (Lisinopril 10 Mg Tablet) 30 mg PO DAILY [facility]; Protocol Last Admin: 09/11/21 07:11 Dose: 30 mg Documented by: LISA Multivitamins/Vitamin C (Multivitamin Tablet) 1 tab PO DAILY [facility] Last Admin: 09/11/21 07:11 Dose: 1 tab Documented by: LISA Ondansetron HCl (Ondansetron Hcl 4 Mg/2 Ml Vial) 4 mg IVPUSH Q8H PRN PRN Reason: Nausea and Vomiting Last Admin: 09/10/21 16:33 Dose: 4 mg Documented by: GUILHERME Oxycodone HCl (Oxycodone Hcl Immed Release 5 Mg Tablet) 5 mg PO Q4H PRN PRN Reason: Pain, Moderate (Pain Scale 4-6 Last Admin: 09/11/21 05:35 Dose: 5 mg Documented by: NICK Oxycodone HCl (Oxycodone Hcl Er 10 Mg Tab.Er.12h) 10 mg PO BID [facility] Last Admin: 09/11/21 07:11 Dose: 10 mg Documented by: LISA Sodium Chloride (0.9 % Sodium Chloride Flush 3 Ml Syringe) 3 ml IVFLUSH QSHIFT [facility] Last Admin: 09/11/21 07:10 Dose: 3 ml Documented by: LISA Labs CBC & Chem 7: 09/11/21 05:13 09/11/21 05:13 Labs: Laboratory Results - last 24 hr 09/11/21 09/11/21 05:13 05:13 MCV 91.3 MCH 28.1 MCHC 30.8 L RDW 14.0 Plt Count 183 D MPV 11.0 Immature Gran % (Auto) 0.6 H Neut % (Auto) 86.5 H Lymph % (Auto) 4.5 L [place] % (Auto) 8.3 Eos % (Auto) 0.0 Baso % (Auto) 0.1 Lymph # (Auto) 0.6 L [place] # (Auto) 1.0 Eos # (Auto) 0.0 Baso # (Auto) 0.0 Abs Immat Gran (auto) 0.07 H Absolute Neuts (auto) 10.5 H Absolute Nucleated RBC 0.000 Nucleated RBC % (auto) 0.0 Anion Gap 13 Estim Creat Clear Calc 103.4 Estimated GFR > 60 Fasting Glucose 136 H Calcium 9.2 Assessment and Plan (1) Status post arthroscopy of right knee: Status: Acute Assessment and Plan: 60F presented for elective right knee arthroplasty for osteoarthritis, noted to have elevated blood pressures s/p Right kne arthroplasty POD 2 management per ortho hypertension now controlled continue home amlodipine, lisinporil Quality Stroke Does the patient have a stroke diagnosis?: No VTE Prior VTE?: No VTE Risk Level:: Surgical - very high VTE Device Contraindication: N/A - Device Ordered VTE Drug Contraindication: N/A - Med Ordered
[2021-09-11 11:00] VITALS: O2SAT 100
[2021-09-11 11:25] VITALS: BP 143/67; PULSE 77; RESP 18; TEMP 36.3; O2SAT 98
--- NOTE | 2021-09-11 11:51 | MHC.CM.PN ---
Addendum entered by Yelena An 09/11/21 12:08: CORRECTION PCP IS JIN SIMON Original Note: NURSE EXHIBIT DESIGNER NOTE ELECTRONIC MEDICAL RECORD REVIEWED ALONG WITH CASE DISCUSSED WITH STAFF NURSE AND WITH ORTHO PEDIC SURGICAL PA , PATIENT WILL BE DISCHARGED HOME TODAY AND WILL NEED HOME PHYSICAL THEARPT TO START TOMORROW. DISCHARGE PLAN HOME WITH FAMILY WITH NEW REFERRAL TO THE [facility] FOR HOME PHYSICAL THERAPY CONFIRMED INS AUTH WITH MIKAELA AND LIASON AT THE [facility] ON 09/10/[address] ROBERT JANSEN PATIENT INSTRUCTED TO CALL FOR APPOINTMENT TO BE FOLLOWED POST HOSPITAL DISCHARGE ORTHOPEDIC FOLLOW UP PER DISCHARGE INSTRUCTIONS
== END 2021-09-11 14:17 | disposition home health service (06) | DRG 470 ==
LOC: HO.SSSA 08:02 → HO.S3 13:18
PROVIDERS: Physician Assistant; Admitting Provider Orthopaedic Surgery; PCP Family Medicine; Visit Provider Orthopaedic Surgery
PROC: 0SRC0J9 Replacement of Right Knee Joint with Synthetic Substitute, Cemented, Open Approach (ICD-10-PCS; CPT 27447; principal; 2021-09-09 09:30)
DX: M17.11 Unilateral primary osteoarthritis, right knee (principal); Z68.41 Body mass index [BMI] 40.0-44.9, adult; I10 Essential (primary) hypertension; E66.9 Obesity, unspecified; Z20.822 Contact with and (suspected) exposure to COVID-19; Z79.899 Other long term (current) drug therapy
CPT/HCPCS: 36415; 73560; 80048; 80051; 82565; 84520; 85025; 86850; 86900; 86901; 87635; 87640; 87641; 88305; 88311; 93005; 97110; 97116; 97162; C1776; J0131; J0690; J1100; J1170; J2250; J2405; J3010

== ENCOUNTER 2021-09-15 22:47 | Inpatient (IN) | payer OTHER, SELFPAY ==
--- NOTE | ~2021-09-15 | XR_ITS ---
Patient name: Gretel Bowie : 1960 EXAMINATION: XR CHEST CLINICAL INFORMATION: Shortness of breath. Covid positive. COMPARISON: 02/01/2019 TECHNIQUE: 2 views of the chest were obtained. FINDINGS: The lungs are well expanded. There is no focal consolidation, edema, or effusion. No pneumothorax. The cardiomediastinal silhouette is within normal limits. No acute osseous abnormality. Upper abdominal surgical clips. XR/XR chest 2V IMPRESSION: Clear lungs.
--- NOTE | ~2021-09-15 | CT_ITS ---
EXAMINATION: CT HEAD WITHOUT CONTRAST CLINICAL INFORMATION: Blurred vision. COMPARISON: No similar priors. TECHNIQUE: Contiguous axial imaging was performed from the skull base to vertex without intravenous administration of contrast. This CT examination was performed using dose optimization techniques as appropriate, variously including the following: *Automated exposure control *Adjustment of mA and/or kV according to patient size (this includes techniques or standardized protocols for targeted exams where dose is matched to indication/reason for exam; i.e. extremities or head) *Use of iterative reconstruction technique DLP: 628 mGy-cm FINDINGS: There is no evidence of acute intracranial hemorrhage or territorial infarction. No abnormal mass effect or midline shift is seen. Escobar to white matter differentiation is well preserved. No extra-axial fluid collections are identified. The ventricles are normal in size. There is complete opacification of the right sphenoidal sinus and an air-fluid level in the left sphenoidal sinus. There is also partial opacification of the posterior ethmoid air cells. The pituitary gland appears enlarged. No evidence of acute osseous or soft tissue abnormalities. The mastoids are clear. CT/CT head/brain wo con IMPRESSION: No evidence of acute territorial infarction or intracranial hemorrhage. The pituitary gland is enlarged. Recommend further evaluation with an MR of the brain with and without intravenous contrast. Paranasal sinus disease.
--- NOTE | ~2021-09-15 | MR_ITS ---
EXAMINATION: MR BRAIN WITHOUT AND WITH CONTRAST CLINICAL INFORMATION: Pituitary mass. COMPARISON: CTA had from 09/16/2021. TECHNIQUE: MRI of the brain was obtained using routine sequences without and following the administration of 5 mL of Gadavist intravenous contrast. FINDINGS: There is a lobulated, weakly enhancing soft tissue mass filling the sella turcica that extends into the sphenoid sinus, measuring 3.2 x 2.7 x 1.9 cm. Associated heterogeneous T2 signal within this lesion. The lesion extends into the right greater than left aspects of the cavernous sinus and appears to fully encase the cavernous segment of the right ICA. There appears to be approximately 50% encasement of the cavernous segment of the left ICA. The lesion fills the suprasellar cistern and mildly abuts the undersurface of the optic chiasm. The pituitary infundibulum is mildly deviated to the left. No focal restricted diffusion is demonstrated to suggest acute or subacute cerebral ischemia. No evidence of acute or chronic hemorrhagic products on heme-sensitive imaging. Scattered periventricular and deep white matter T2 FLAIR hyperintensities consistent with mild underlying microangiopathy. The ventricles are normal in morphology and size. No abnormal mass effect. No midline shift. The cerebellar tonsils are normally positioned. Normal arterial and venous vascular flow voids are present. No additional abnormal contrast enhancement. Normal, homogeneous marrow signal. Moderate degenerative spondyloarthropathy of the visualized upper cervical spine. Mild mucosal thickening of the paranasal sinuses. No signal abnormalities within the mastoids. MR/MR head/brain wo/w con IMPRESSION: 1. 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 A portion of this lesion extends into the sphenoid sinus. The lesion appears to invade the right greater than left aspects of the cavernous sinus with complete encasement of the cavernous segment of the right ICA. There appears to be approximately 50% encasement of the cavernous segment of the left ICA. 2. No additional acute intracranial abnormalities. Mild underlying microangiopathy. No additional abnormal intracranial enhancement.
--- NOTE | ~2021-09-15 | CT_ITS ---
EXAMINATION: CT HEAD WITH CONTRAST CLINICAL INFORMATION: Severe headache COMPARISON: Baseline including 09/16/2021 TECHNIQUE: Contiguous axial imaging was performed from the skull base to vertex following the administration of 100 mL of Omnipaque [address] examination was performed using dose optimization techniques as appropriate, variously including the following: *Automated exposure control *Adjustment of mA and/or kV according to patient size (this includes techniques or standardized protocols for targeted exams where dose is matched to indication/reason for exam; i.e. extremities or head) *Use of iterative reconstruction technique DLP: 642 mGy-cm FINDINGS: There is no evidence of acute intracranial hemorrhage or territorial infarction. No extra-axial fluid collections are identified. The known mass within the sella turcica with expansion and remodeling extending to the right cavernous sinus location is essentially stable consistent with a macroadenoma. There is expansion into the sphenoid sinus once again. The cavernous sinus does appear to enhance normally. No new findings. On this enhanced study, there is no gross evidence for any hemorrhage. CT/CT head/brain w con IMPRESSION: Known pituitary mass is similar to recent imaging. No gross thrombosis of the cavernous sinus. No new findings.
--- NOTE | ~2021-09-15 | CT_ITS ---
Patient name: Gretel Bowie : 1960 EXAMINATION: CTA OF THE HEAD/NECK CLINICAL INFORMATION: Abducens cranial nerve palsy COMPARISON: Head CT from today. TECHNIQUE: A routine non contrast head CT was performed earlier in the evening. This is followed by a 70 mL bolus of Omnipaque 350. Subsequent multidetector helical imaging was performed of the head and neck. Delayed post contrast imaging was also performed through the head. Multiplanar reformats and MIP were also obtained. Internal carotid artery stenoses are assessed in accordance with NASCET criteria unless otherwise indicated. This CT examination was performed using dose optimization techniques as appropriate, variously including the following: *Automated exposure control *Adjustment of mA and/or kV according to patient size (this includes techniques or standardized protocols for targeted exams where dose is matched to indication/reason for exam; i.e. extremities or head) *Use of iterative reconstruction technique DLP: 1426 mGy-cm. FINDINGS: CT HEAD: There is no evidence of acute intracranial hemorrhage or territorial infarction. No abnormal mass effect or midline shift is seen. Escobar to white matter differentiation is well preserved. No extra-axial fluid collections are identified. There is a pituitary mass identified. This expands through the right aspect of the sella. This appears to extend into the right sphenoid sinus, with erosive appearance along the posterior wall of the right and left sphenoid. Occlusion of the right sphenoethmoidal recess noted. No hydrocephalus. No significant volume loss. There is no abnormal attenuation within the brain parenchyma. The osseous structures and soft tissues are normal. The mastoid air cells are well aerated. Sphenoid opacification as above. CTA NECK: The aortic arch is of normal caliber and the origins of the great vessels are patent without evidence of significant stenosis. The cervical portion of the vertebral arteries are patent bilaterally. No luminal irregularities in the common carotid arteries and the carotid bifurcations are patent bilaterally. The cervical portion of the internal carotid arteries are of normal caliber. The laryngeal structures and pharyngeal mucosal spaces are unremarkable. The oral cavity appears normal. The parotid and submandibular glands are normal. No pathologically enlarged lymph nodes. The thyroid gland is unremarkable. The lung apices are clear without evidence of pneumothorax. Spinal alignment is maintained. Mild cervical spondylosis is noted. CTA HEAD: The intradural portion of the vertebral arteries are of normal caliber. The basilar, superior cerebellar, and posterior communicating arteries are patent. The posterior, middle, and anterior cerebral arteries are of normal caliber without evidence of significant luminal irregularity. No definite intracranial aneurysms. CT/CT angio head neck IMPRESSION: 1. Expansile mass of the pituitary gland. This extends through the right aspect of the sella and into the right sphenoid sinus. This can be further evaluated with pituitary protocol MRI. 2. No acute vascular abnormality. No large vessel occlusion or flow-limiting stenosis. This critical result was discussed with DARON Silverio by telephone at 09/16/2021 2:09 AM and it was ascertained that the content and urgency of the report was understood at the time of direct communication.
[2021-09-15 23:05] VITALS: BP 182/77; PULSE 61; RESP 15; TEMP 36.1; O2SAT 99; BMI 40.0
[2021-09-15 23:38] VITALS: RESP 16
--- NOTE | 2021-09-15 23:47 | ECG_ITS ---
Test Reason : WEAKNESS Blood Pressure : / mmHG Vent. Rate : 068 BPM Atrial Rate : 068 BPM P-R Int : 152 ms QRS Dur : 082 ms QT Int : 382 ms P-R-T Axes : 075 030 026 degrees QTc Int : 406 ms Sinus rhythm with Premature atrial complexes Otherwise normal ECG When compared with ECG of 01-SEP-2021 12:55, Premature atrial complexes are now Present Referred By: Lisa Franco Electronically Signed By:MILEY BUI MD
--- NOTE | 2021-09-15 23:48 | ED.GENADULT ---
HPI - General Adult General Chief complaint: General Medical Stated complaint: headache and hypertensive Time Seen by Provider: 09/15/21 23:42 Source: patient Mode of arrival: ambulatory Limitations: no limitations History of Present Illness HPI narrative: 60 year old female past medical history significant for hypertension, asthma, arthritis presents to the ED with double vision, left eye in an abnormal position, pressure behind left eye, blurred vision, sensitivity to light and headache x4 days. Patient tells me that this headache is severe, constant and 1 of the worse when she has ever had. He tells me that she has ?fluid behind my eye , she also reports that she recently got an injection to her left eye, she is not sure which she got or what she got it for. She tells me her headache is most prominent to the back of her head, and she reports photophobia. She denies chest pain, fevers, chills, nausea, vomiting, abdominal pain, shortness of breath, weakness, dizziness Onset (ago): day(s) (4) Location: eyes Radiation: non-radiation Severity: severe Pain Consistency: constant Relieving factors: none Exacerbating factors: none Associated symptoms: denies other symptoms Treatments prior to arrival: none Related Data Home Medications Medication Instructions Recorded Confirmed albuterol sulfate 90 mcg/actuation 2 puff INHALATION Q4H PRN 09/09/20 09/16/21 aerosol inhaler amlodipine 10 mg tablet 10 mg PO DAILY 09/09/20 09/16/21 sennosides 8.6 mg tablet 17.2 mg PO DAILY 09/09/20 09/16/21 amitriptyline 10 mg tablet 10 mg PO BEDTIME 06/01/21 09/16/21 lisinopril 30 mg tablet 30 mg PO DAILY 06/01/21 09/16/21 naloxone 4 mg/actuation nasal 1 spray INTRANASAL ONCE PRN 06/01/21 09/16/21 spray (Narcan) nystatin 100,000 unit/gram topical 1 appl TOPICAL ONCE PRN 06/01/21 09/16/21 powder vit C 250 mg-vit E 90 mg-zinc 40 1 cap PO DAILY 06/01/21 09/16/21 mg-copper 1 [id number] capsule (PreserVision AREDS-2) fluticasone propionate 50 2 spray INTRANASAL DAILY 09/16/21 09/16/21 mcg/actuation nasal spray,suspension loratadine 10 mg tablet 1 tab PO DAILY 09/16/21 09/16/21 methocarbamol 750 mg tablet 1 tab PO BID PRN 09/16/21 09/16/21 oxybutynin chloride 10 mg 1 tab PO DAILY 09/16/21 09/16/21 tablet,extended release 24 hr oxycodone 5 mg tablet 5 mg PO Q8H PRN 09/16/21 09/16/21 Previous Rx's Medication Instructions Recorded oxycodone 5 mg tablet 5 mg PO DAILY PRN 20 Days #20 tab 12/08/20 acetaminophen 325 mg tablet 650 mg PO Q6H PRN 30 Days #240 tab 09/11/21 aspirin 325 mg tablet 325 mg PO BID 42 Days #84 tab 09/11/21 celecoxib 200 mg capsule 200 mg PO BID 30 Days #60 cap 09/11/21 docusate sodium 100 mg capsule 100 mg PO BID 30 Days #60 cap 09/11/21 Allergies Allergy/AdvReac Type Severity Reaction Status Date / Time BANDAIDS Allergy Intermediate BLISTERS Uncoded 06/01/21 10:20 STERI-STRIPS Allergy Intermediate BLISTERS Uncoded 06/01/21 10:20 Review of Systems Review of Systems: Constitutional : No Weight loss, No Fever, No Chills, No Fatigue, No Malaise ENT/Mouth : No sore throat, No Rhinorrhea Eyes: + Eye Pain/pressure , No Swelling, No Redness, + blurred vision Cardiovascular : No Chest Pain, No SOB, No Dyspnea on Exertion, No Orthopnea, No Edema, No Palpitations Respiratory : No Cough, No Sputum, No Wheezing Gastrointestinal : No Nausea, No Vomiting, No Diarrhea, No Constipation, No abdominal Pain, No Hematochezia, No Melena Genitourinary : No Dysuria, No Urinary Frequency, No Hematuria, Musculoskeletal : No joint pain, No Myalgias, No Joint Swelling Skin : No Skin Lesions, No rash Neuro : No Weakness, No Numbness, No Dizziness, + Headache Psych : No Anxiety/Panic, No Depression All other systems reviewed and are negative Yes all other systems are reviewed and are negative PMFSH Past Medical History Attestation statement: The following information was validated with the patient. Source: old records reviewed and nursing notes reviewed Medical History Arthritis Asthma Back pain Cancer COVID-19 vaccine series completed History of headache HTN (hypertension) Hx of radiation therapy Impingement syndrome of right shoulder Personal history of tuberculosis Wears dentures Surgical History H/O colonoscopy History of lumpectomy of right breast History of revision of total knee arthroplasty History of sleeve gastrectomy Hx of dilation and curettage Hx of foot surgery Hx of hand surgery Hx of hysterectomy Hx of total knee replacement Family History Family History Father No problems noted. Mother No problems noted. Social History Social History Household Members: Family Housing: House Are you a primary home health care social worker to a significant other at home: No Do you presently have visiting nurse or other home services: Yes ([employer]) Alcohol intake: never Patient Tobacco Use Status: Never used Tobacco Use of substances other than those prescribed or required for medical reasons: No Advance Directives: No Advance Directives Information Provided: No Patient : No service: No Current occupational status: disabled Current occupation: Right Handed Physical Exam Vital Signs: Vital Signs: Last Vital Signs Temp 96.9 F 09/16/21 06:18 Pulse 68 09/16/21 07:09 Resp 16 09/16/21 06:18 BP 205/87 H 09/16/21 07:09 Pulse Ox 98 09/16/21 06:18 BMI result Body Mass Index 40.0 Vital signs significant for hypertension. Appearance: Alert.? Oriented X3.? No acute distress.? 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 ENT: Pharynx normal.? Neck: Normal inspection.? Neck supple.? CVS: Normal heart rate and rhythm.? Pulses normal.? Respiratory: No respiratory distress.? Breath sounds normal.? Abdomen: Soft and nontender.? Skin: Skin warm and dry.? Normal skin color.? Normal skin turgor.? Extremities: No lower extremity edema.? No calf ttp. 5/5 strength to bilateral upper and lower extremities Back: No midline tenderness, no C-spine tenderness, full range of motion, no CVA tenderness bilaterally Neuro: Oriented X 3.? No motor deficit.? No sensory deficit. Course Reevaluation(s) Reevaluation #1: Upon revaluation patient now able to abduct eye. same plan remains in place. Time: 11:30 Reevaluation #2: CT of the head with no acute territorial infarction or intracranial hemorrhage. The pituitary gland appears to be enlarged, they recommend further evaluation with an MRI of the brain. Which will like may not be done today on an emergent basis. Time: 00:54 Reevaluation #3: CT the head shows a enlarging pituitary mass, this critical result was discussed with radiology who tells me that neuro radiology will also take a look at these images. At this time it plan is to admit the patient to the hospitalist team. MRI recommended Dr. Lane accepted patient. Medical Decision Making MDM Narrative Medical decision making narrative: 2349 This is a 60 yo F pmhx HTN, arthritis, asthma presents with headache and pressure overlying her left eye, double vision, inversion of left eye and blurred vision X4 days. Patient reports she knows she has fluid behind her eye PE significant for inversion of the left eye, pupils equal round and reactive, no pain with extraocular movements however possible cranial nerve 6 palsy. No focal neuro deficits, normal [id number], [id number]-[id number], 5/5 strength upper and lower extremities. Lungs are clear. Regular rate and rhythm. Eye pressure on the right is 8, left 9. CN 6 palsey unable to abduct left eye. Plan at this time is to obtain basic labs, COVID, CT of the head and brain, extraocular pressures, EKG. Will rule out ICH, mass/tumor, anurysm Lab Data Result diagrams: 09/16/21 00:30 09/16/21 00:30 Labs: Lab Results 09/16/21 09/16/21 09/16/21 Range/Units 00:01 00:30 00:30 WBC 9.2 (4.8-10.8) X10*3/uL RBC 4.28 (4.20-5.50) X10*6/uL Hgb 12.1 (12.0-16.0) g/dl Hct 39.3 (37.0-47.0) % MCV 91.8 (80.0-98.0) fL MCH 28.3 (27.0-33.0) pg MCHC 30.8 L (31.0-35.0) g/dl RDW 14.2 (11.0-16.0) % Plt Count 324 D (160-400) X10*3/uL MPV 9.8 (9.4-12.3) fL Immature Gran % (Auto) 1.2 H (0.0-0.4) % Neut % (Auto) 85.0 H (45-73) % Lymph % (Auto) 7.2 L (20-40) % [place] % (Auto) 6.6 (2-11) % Eos % (Auto) 0.0 (0-4) % Baso % (Auto) 0.0 (0-2) % Lymph # (Auto) 0.7 L (1.2-4.9) X10*3/uL [place] # (Auto) 0.6 (0.1-1.2) X10*3/uL Eos # (Auto) 0.0 (0.0-0.4) X10*3/uL Baso # (Auto) 0.0 (0.0-0.2) X10*3/uL Abs Immat Gran (auto) 0.11 H (0.00-0.03) X10*3/uL Absolute Neuts (auto) 7.8 (2.0-8.3) x10*3/uL Absolute Nucleated RBC 0.000 (0.0-0.012) X10*3/uL Nucleated RBC % (auto) 0.0 (0.0-0.2) /100WBC ESR (0-20) MM/HR Sodium 141 (135-145) mmol/L Potassium 4.5 (3.3-5.1) mmol/L Chloride 105 (96-108) mmol/L Carbon Dioxide 29 (22-29) mmol/L Anion Gap 12 (12-20) BUN 32 H D (9-16) mg/dL Creatinine 0.71 (0.5-1.4) mg/dL Estim Creat Clear Calc 87.0 Estimated GFR > 60 POC Glucose 123 H (60-115) mg/dL Random Glucose 136 H (60-115) mg/dL Calcium 9.4 (8.4-10.2) mg/dL Magnesium 2.4 (1.6-2.6) mg/dL Total Bilirubin 0.4 (0.0-1.0) mg/dL AST 31 D (5-31) U/L ALT 39 H (0-31) U/L Alkaline Phosphatase 71 (39-117) U/L C-Reactive Protein (< or = 0.50) mg/dL Total Protein 6.6 (6.5-8.0) g/dL Albumin 3.5 (3.5-5.0) g/dL COVID-19 ([facility]) (Negative) COVID-19 Clin Com 09/16/21 09/16/21 09/16/21 Range/Units 00:30 00:30 00:31 WBC (4.8-10.8) X10*3/uL RBC (4.20-5.50) X10*6/uL Hgb (12.0-16.0) g/dl Hct (37.0-47.0) % MCV (80.0-98.0) fL MCH (27.0-33.0) pg MCHC (31.0-35.0) g/dl RDW (11.0-16.0) % Plt Count (160-400) X10*3/uL MPV (9.4-12.3) fL Immature Gran % (Auto) (0.0-0.4) % Neut % (Auto) (45-73) % Lymph % (Auto) (20-40) % [place] % (Auto) (2-11) % Eos % (Auto) (0-4) % Baso % (Auto) (0-2) % Lymph # (Auto) (1.2-4.9) X10*3/uL [place] # (Auto) (0.1-1.2) X10*3/uL Eos # (Auto) (0.0-0.4) X10*3/uL Baso # (Auto) (0.0-0.2) X10*3/uL Abs Immat Gran (auto) (0.00-0.03) X10*3/uL Absolute Neuts (auto) (2.0-8.3) x10*3/uL Absolute Nucleated RBC (0.0-0.012) X10*3/uL Nucleated RBC % (auto) (0.0-0.2) /100WBC ESR 38 H (0-20) MM/HR Sodium (135-145) mmol/L Potassium (3.3-5.1) mmol/L Chloride (96-108) mmol/L Carbon Dioxide (22-29) mmol/L Anion Gap (12-20) BUN (9-16) mg/dL Creatinine (0.5-1.4) mg/dL Estim Creat Clear Calc Estimated GFR POC Glucose (60-115) mg/dL Random Glucose (60-115) mg/dL Calcium (8.4-10.2) mg/dL Magnesium (1.6-2.6) mg/dL Total Bilirubin (0.0-1.0) mg/dL AST (5-31) U/L ALT (0-31) U/L Alkaline Phosphatase (39-117) U/L C-Reactive Protein 1.80 H (< or = 0.50) mg/dL Total Protein (6.5-8.0) g/dL Albumin (3.5-5.0) g/dL COVID-19 ([facility]) Positive A (Negative) COVID-19 Clin Com See Note Critical Care Time Critical Care Time Critical Care Time: No Discharge Plan Discharge Clinical Impression: Pituitary mass, Headache Patient Disposition: Admitted As Inpatient
[2021-09-16] VITALS (12 sets, daily range): BP systolic 126–205; BP diastolic 55–87; PULSE 57–91; RESP 14–20; TEMP 36.1–36.8; O2SAT 97–99; BMI 41.2
[2021-09-16 00:07] LABS: Glucose, Whole Blood 123 mg/dL (60-115)
[2021-09-16 00:41] LABS: MANUAL DIFF FLAG NO
[2021-09-16 00:42] LABS: Hematocrit 39.3 % (37.0-47.0); Hemoglobin 12.1 g/dl (12.0-16.0); Imm Gran Abs Auto 0.11 X10*3/uL (0.00-0.03); Imm Gran Pct Auto 1.2 % (0.0-0.4); Lymphocytes Absolute Auto 0.7 X10*3/uL (1.2-4.9); Lymphocytes Percent Auto 7.2 % (20-40); Mean Corpuscular HGB Conc 30.8 g/dl (31.0-35.0); Mean Corpuscular Hemoglobin 28.3 pg (27.0-33.0); Mean Corpuscular Volume 91.8 fL (80.0-98.0); Mean Platelet Volume 9.8 fL (9.4-12.3); Monocytes Absolute Auto 0.6 X10*3/uL (0.1-1.2); Monocytes Percent Auto 6.6 % (2-11); Neutrophils Absolute Auto 7.8 x10*3/uL (2.0-8.3); Platelet Count 324 X10*3/uL (160-400); Red Blood Count 4.28 X10*6/uL (4.20-5.50); Red Cell Distribution Width 14.2 % (11.0-16.0); White Blood Count 9.2 X10*3/uL (4.8-10.8)
[2021-09-16] MEDS: 0.9 % Sodium Chloride 1,000 ML 999 ML IV (00:45)
[2021-09-16 00:53] LABS: COVID-19 Test Positive (Negative)
[2021-09-16 05:39] LABS: Alanine Aminotransferase 39 U/L (0-31); Albumin Level 3.5 g/dL (3.5-5.0); Alkaline Phosphatase 71 U/L (39-117); Anion Gap 12 (12-20); Aspartate Amino Transferase 31 U/L (5-31); Bilirubin Total 0.4 mg/dL (0.0-1.0); Blood Urea Nitrogen 32 mg/dL (9-16); Calcium 9.4 mg/dL (8.4-10.2); Carbon Dioxide 29 mmol/L (22-29); Chloride 105 mmol/L (96-108); Estimated Glomerular Filt Rate > 60; Glucose Random 136 mg/dL (60-115); Magnesium 2.4 mg/dL (1.6-2.6); Potassium 4.5 mmol/L (3.3-5.1); Sodium 141 mmol/L (135-145); Total Protein 6.6 g/dL (6.5-8.0)
[2021-09-16] MEDS: iohexoL 350 MG/ML 100 ML INFUS..BTL 70 ML IV (05:58)
--- NOTE | 2021-09-16 06:06 | PM.IMHP ---
History of Present Illness Date of Service: 09/16/21 Chief Complaint: headache, double vision This is a 60-year-old female with past medical history of breast cancer status post right breast lumpectomy, hypertension, presents to the hospital with complaints of headache, double vision, and being cross side. Patient reports that she had right knee surgery on Tuesday, was doing well, until Tuesday she woke up with significant frontal headache, and pressure behind her eyes, the next day she developed double vision, noticed that her left eyes crossed. She denies having any weakness or numbness in her arms or legs, has some tingling in her right hand but no weakness. She reports no previous symptoms at all, no headache in the past, no drainage from the breast, no change in her weight, and all of this started on Tuesday. She went to PCP today, she was tested for COVID-19 which came out positive, patient is asymptomatic from that aspect, has no shortness of breath, no cough, no fever or chills, she has had 2 vaccines against COVID-19 but has not yet had her booster shot. She otherwise denies any chest pain, no palpitations, no abdominal pain nausea or vomiting, no diarrhea constipation, no urinary symptoms and no lower extremity edema Next on arrival to the ED patient's vital significant for blood pressure of 182/[address] showed pituitary gland is enlarged, CT head and neck angiogram showed a pituitary mass which was called into the ED with no official read, pending neuro radiology reading. Patient will be admitted for observation with an MRI and neurology consult and may need transfer to tertiary care in a.m. Review of Systems Review of Systems: Yes all other systems are reviewed and are negative [facility] Medical History Arthritis Asthma Back pain Cancer COVID-19 vaccine series completed History of headache HTN (hypertension) Hx of radiation therapy Impingement syndrome of right shoulder Personal history of tuberculosis Wears dentures Family History Father No problems noted. Mother No problems noted. 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) Alcohol intake: never Patient Tobacco Use Status: Never used Tobacco Use of substances other than those prescribed or required for medical reasons: No Advance Directives: No Advance Directives Information Provided: No Patient : No service: No Current occupational status: disabled Current occupation: Right Handed Meds Allergies Allergy/AdvReac Type Severity Reaction Status Date / Time BANDAIDS Allergy Intermediate BLISTERS Uncoded 06/01/21 10:20 STERI-STRIPS Allergy Intermediate BLISTERS Uncoded 06/01/21 10:20 Home Medications Medication Instructions Recorded Confirmed Last Taken Type albuterol sulfate 90 mcg/actuation 2 puff INHALATION Q4H PRN 09/09/20 09/01/21 10/06/20 History aerosol inhaler amlodipine 10 mg tablet 10 mg PO DAILY 09/09/20 09/01/21 10/07/20 05:30 History sennosides 8.6 mg tablet 17.2 mg PO DAILY 09/09/20 09/01/21 10/06/20 History amitriptyline 10 mg tablet 10 mg PO BEDTIME 06/01/21 09/01/21 Unknown History lisinopril 30 mg tablet 30 mg PO DAILY 06/01/21 09/01/21 Unknown History naloxone 4 mg/actuation nasal 1 spray INTRANASAL ONCE PRN 06/01/21 09/01/21 Unknown History spray (Narcan) nystatin 100,000 unit/gram topical 1 appl TOPICAL ONCE PRN 06/01/21 09/01/21 Unknown History powder vit C 250 mg-vit E 90 mg-zinc 40 1 cap PO DAILY 06/01/21 09/01/21 Unknown History mg-copper 1 [id number] capsule (PreserVision AREDS-2) Physical Exam Vital Signs and Narrative: Vital Signs: Last Vital Signs Temp 96.9 F 09/15/21 23:05 Pulse 59 09/16/21 00:33 Resp 20 09/16/21 00:33 BP 186/87 H 09/16/21 00:33 Pulse Ox 98 09/16/21 00:33 BMI result Body Mass Index 40.0 Const: General: cooperative and no acute distress Orientation/consciousness: patient oriented x3 HENMT: Other: bitemporal heminopnia esotropia of left eye Eyes: General: appearance normal, both eyes and all related structures Pupils: Equal, round and reactive pupils present Resp: Effort & Inspection: normal respiratory effort Auscultation: clear to auscultation bilaterally Cardio: Rate: regular rate Rhythm: regular rhythm GI: Palpation (GI): Soft to palpation Auscultation: normal bowel sounds Skin: General skin exam: no rashes or lesions noted Neuro: Other: bitemporal hemanipnia strength 5/5 in all extremities General: patient oriented x3 Cranial nerves: Yes Equal, round and reactive pupils present Cognition (Neuro): normal cognition Extrem: General: Yes normal to inspection and Yes no pedal edema Results Labs CBC and Chem 7: 09/16/21 00:30 09/16/21 00:30 Labs: Laboratory Results - last 24 hr 09/16/21 09/16/21 09/16/21 00:01 00:30 00:30 MCV 91.8 MCH 28.3 MCHC 30.8 L RDW 14.2 Plt Count 324 D MPV 9.8 Immature Gran % (Auto) 1.2 H Neut % (Auto) 85.0 H Lymph % (Auto) 7.2 L [place] % (Auto) 6.6 Eos % (Auto) 0.0 Baso % (Auto) 0.0 Lymph # (Auto) 0.7 L [place] # (Auto) 0.6 Eos # (Auto) 0.0 Baso # (Auto) 0.0 Abs Immat Gran (auto) 0.11 H Absolute Neuts (auto) 7.8 Absolute Nucleated RBC 0.000 Nucleated RBC % (auto) 0.0 Anion Gap 12 Estim Creat Clear Calc 87.0 Estimated GFR > 60 POC Glucose 123 H Random Glucose 136 H Calcium 9.4 Magnesium 2.4 Total Bilirubin 0.4 AST 31 D ALT 39 H Alkaline Phosphatase 71 C-Reactive Protein Total Protein 6.6 Albumin 3.5 COVID-19 ([facility]) COVID-19 Clin Com 09/16/21 09/16/21 00:30 00:31 MCV MCH MCHC RDW Plt Count MPV Immature Gran % (Auto) Neut % (Auto) Lymph % (Auto) [place] % (Auto) Eos % (Auto) Baso % (Auto) Lymph # (Auto) [place] # (Auto) Eos # (Auto) Baso # (Auto) Abs Immat Gran (auto) Absolute Neuts (auto) Absolute Nucleated RBC Nucleated RBC % (auto) Anion Gap Estim Creat Clear Calc Estimated GFR POC Glucose Random Glucose Calcium Magnesium Total Bilirubin AST ALT Alkaline Phosphatase C-Reactive Protein 1.80 H Total Protein Albumin COVID-19 ([facility]) Positive A COVID-19 Clin Com See Note Imaging Radiologist's Impressions: Impressions Head CT 09/16/21 00:13 IMPRESSION: No evidence of acute territorial infarction or intracranial hemorrhage. The pituitary gland is enlarged. Recommend further evaluation with an MR of the brain with and without intravenous contrast. Paranasal sinus disease. Assessment and Plan (1) Pituitary mass: Status: Acute (2) Bitemporal hemianopia: Status: Acute (3) COVID-19 virus infection: Status: Acute 60-year-old female with past medical history of breast cancer status post lumpectomy, hypertension, presents to the hospital with complaints of headache, as well as pressure behind the eyes, and double vision. Found to have pituitary mass on CT imaging # pituitary mass - at this time patient hemodynamically stable, no evidence of pituitary apoplexy, awake alert x4 - patient has bitemporal hemianopia - will obtain MRI - neurology consult - may need transfer to tertiary care for further management by Neurosurgery # bitemporal hemianopsia - most likely secondary to the mass compressing on the chiasm - stat MRI pending - neurology consulted - will need neurosurgery evaluation # COVID-19 infection - no symptoms at this time - monitor respiratory status # hypertension - elevated - continue lisinopril and amlodipine - given that the blood pressure is slightly elevated will give her 1 dose of hydralazine to reduce blood pressure DVT prophylaxis: SCDs given the pituitary mass, to avoid pituitary hemorrhage Quality Stroke Does the patient have a stroke diagnosis?: No VTE Prior VTE?: No VTE Risk Level:: Medical - moderate - high VTE Device Contraindication: N/A - Device Ordered VTE Drug Contraindication: Treatment Not Indicated
[2021-09-16] MEDS: hydrALAZINE HCl 20 MG/ML VIAL 5 MG IVPUSH (07:09)
[2021-09-16] MEDS: Morphine Sulfate 4 MG/ML CARTRIDGE IVPUSH (07:09)
[2021-09-16 07:32] LABS: Glucose, Whole Blood 112 mg/dL (60-115)
[2021-09-16 07:52] LABS: Erythrocyte Sedimentation Rate 38 MM/HR (0-20)
--- NOTE | 2021-09-16 08:48 | PM.NEUROCN ---
History of Present Illness Data of Consult Service Date: 09/16/21 Primary Care Provider: Anushka Figueredo DO HPI Reason for consult: Headache 60 years old woman with past medical history of breast cancer and recent right knee replacement surgery with no significant past medical history of headaches developed a headache couple of days prior to coming to hospital. Headache was moderate to severe associated with double vision and ?crossed eyes?. There was no cold or flu-like illness or trauma. There was no focal weakness. She had not noted any problem with her vision other than double vision. In emergency room she had a noncontrast head CT and then a CTA of brain and neck. These test revealed abnormality and this consultation was requested. [facility] Past Medical History Medical History Arthritis Asthma Back pain Cancer COVID-19 vaccine series completed History of headache HTN (hypertension) Hx of radiation therapy Impingement syndrome of right shoulder Personal history of tuberculosis Wears dentures Family History Family History Father No problems noted. Mother No problems noted. 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) Alcohol intake: never Patient Tobacco Use Status: Never used Tobacco Use of substances other than those prescribed or required for medical reasons: No Advance Directives: No Advance Directives Information Provided: No Patient : No service: No Current occupational status: disabled Current occupation: Right Handed Meds Allergies Allergy/AdvReac Type Severity Reaction Status Date / Time BANDAIDS Allergy Intermediate BLISTERS Uncoded 06/01/21 10:20 STERI-STRIPS Allergy Intermediate BLISTERS Uncoded 06/01/21 10:20 Active Medications: Current Medications Acetaminophen (Acetaminophen 325 Mg Tablet) 650 mg PO Q6H PRN PRN Reason: Pain, Mild (Pain Scale 1-3) Albuterol Sulfate (Albuterol Sulfate 90 Mcg 8 Gm Inhaler) 2 puff INHALE Q4H PRN PRN Reason: Shortness Of Breath Amitriptyline HCl (Amitriptyline Hcl 10 Mg Tablet) 10 mg PO BEDTIME [facility] Amlodipine Besylate (Amlodipine Besylate 10 Mg Tablet) 10 mg PO DAILY [facility]; Protocol Aspirin (Aspirin 325 Mg Tablet) 325 mg PO BID [facility] Celecoxib (Celecoxib 200 Mg Capsule) 200 mg PO BID [facility] Cyclobenzaprine HCl (Cyclobenzaprine Hcl 10 Mg Tablet) 10 mg PO BID PRN PRN Reason: muscle spasm Docusate Sodium (Docusate Sodium 100 Mg Capsule) 100 mg PO DAILY PRN PRN Reason: Constipation Docusate Sodium (Docusate Sodium 100 Mg Capsule) 100 mg PO BID [facility] Fluticasone Propionate (Fluticasone Propionate Nasal 16 Gm [place]) 2 spray NOSTRIL-B DAILY [facility] Lisinopril (Lisinopril 10 Mg Tablet) 30 mg PO DAILY [facility]; Protocol Loratadine (Loratadine 10 Mg Tablet) 10 mg PO DAILY [facility] Nystatin (Nystatin Powder 15 Gm Bottle) 1 appl TOPICAL ONCE PRN; Protocol PRN Reason: Rash Ondansetron HCl (Ondansetron Hcl 4 Mg/2 Ml Vial) 4 mg IVPUSH Q8H PRN PRN Reason: Nausea and Vomiting Oxybutynin Chloride (Oxybutynin Chloride Er 5 Mg Tab.Er.24) 10 mg PO DAILY [facility] Oxycodone HCl (Oxycodone Hcl Immed Release 5 Mg Tablet) 5 mg PO Q8H PRN PRN Reason: Pain, Moderate (Pain Scale 4-6 Senna (Sennosides 8.6 Mg Tablet) 17.2 mg PO DAILY [facility] Sodium Chloride (0.9 % Sodium Chloride Flush 3 Ml Syringe) 3 ml IVFLUSH QSHIFT [facility] Home Medications Medication Instructions Recorded Confirmed Last Taken Type albuterol sulfate 90 mcg/actuation 2 puff INHALATION Q4H PRN 09/09/20 09/16/21 10/06/20 History aerosol inhaler amlodipine 10 mg tablet 10 mg PO DAILY 09/09/20 09/16/21 10/07/20 05:30 History sennosides 8.6 mg tablet 17.2 mg PO DAILY 09/09/20 09/16/21 10/06/20 History amitriptyline 10 mg tablet 10 mg PO BEDTIME 06/01/21 09/16/21 Unknown History lisinopril 30 mg tablet 30 mg PO DAILY 06/01/21 09/16/21 Unknown History naloxone 4 mg/actuation nasal 1 spray INTRANASAL ONCE PRN 06/01/21 09/16/21 Unknown History spray (Narcan) nystatin 100,000 unit/gram topical 1 appl TOPICAL ONCE PRN 06/01/21 09/16/21 Unknown History powder vit C 250 mg-vit E 90 mg-zinc 40 1 cap PO DAILY 06/01/21 09/16/21 Unknown History mg-copper 1 [id number] capsule (PreserVision AREDS-2) fluticasone propionate 50 2 spray INTRANASAL DAILY 09/16/21 09/16/21 Unknown History mcg/actuation nasal spray,suspension loratadine 10 mg tablet 1 tab PO DAILY 09/16/21 09/16/21 Unknown History methocarbamol 750 mg tablet 1 tab PO BID PRN 09/16/21 09/16/21 Unknown History oxybutynin chloride 10 mg 1 tab PO DAILY 09/16/21 09/16/21 Unknown History tablet,extended release 24 hr oxycodone 5 mg tablet 5 mg PO Q8H PRN 09/16/21 09/16/21 Unknown History Physical Exam Vital Signs: Vital Signs: Last Vital Signs Temp 96.9 F 09/16/21 06:18 Pulse 72 09/16/21 08:37 Resp 14 09/16/21 08:37 BP 170/71 H 09/16/21 08:37 Pulse Ox 97 09/16/21 08:37 BMI result Body Mass Index 40.0 Neuro: Other: She is alert and awake with normal spontaneity of speech fluency comprehension and affect she was not under any distress though stated that headache was about 7/10. Pupils were about 2-3 mm round reactive. Visual [place] were somewhat difficult to determine but there was no obvious abnormality. Her right eye was fixed in midline and not moving laterally. It was moving towards midline upwards and downwards. Left eye movements were normal. There was no obvious focal arm or leg weakness the examination was somewhat limited because of recent knee surgery and associated discomfort and pain and her inability to move it. Plantars were flexors. Affect was normal. Results Labs CBC & Chem 7: 09/16/21 00:30 09/16/21 00:30 Labs: Short CBC 09/16/21 Range/Units 00:30 WBC 9.2 (4.8-10.8) X10*3/uL Hgb 12.1 (12.0-16.0) g/dl Hct 39.3 (37.0-47.0) % Plt Count 324 D (160-400) X10*3/uL BMP 09/16/21 00:30 Sodium 141 Potassium 4.5 Chloride 105 Carbon Dioxide 29 BUN 32 H D Creatinine 0.71 Calcium 9.4 Liver Function 09/16/21 Range/Units 00:30 Total Bilirubin 0.4 (0.0-1.0) mg/dL AST 31 D (5-31) U/L ALT 39 H (0-31) U/L Alkaline Phosphatase 71 (39-117) U/L Albumin 3.5 (3.5-5.0) g/dL Her imaging revealed a large pituitary area mass. Assessment and Plan (1) Pituitary mass: Status: Acute Large pituitary area mass with acute headache and double vision with examination revealing right 6 nerve palsy. Visual [place] were somewhat difficult to determine. There was otherwise no focal weakness. I believe the mass is the likely cause of headache and cranial nerve palsy. This is an emergent situation and I would suggest treating her with Decadron 10 mg 1 dose and transferring her to [facility] with neuro surgical expertise to probably take care of it before it causes further problems. This was conveyed to emergency room and the hospitalist team. Procedures Date of Service Date of Service: 09/16/21
[2021-09-16] MEDS: Docusate Sodium 100 MG CAPSULE PO (08:59)
[2021-09-16] MEDS: Sennosides 8.6 MG TABLET 17.2 MG PO (08:59)
[2021-09-16] MEDS: Aspirin 325 MG TABLET PO ×2 (09:00→22:26)
[2021-09-16] MEDS: dexAMETHasone sod phosphate 4 MG/ML VIAL 6 MG IVPUSH (09:00)
[2021-09-16] MEDS: oxyCODONE HCl Immed Release 5 MG TABLET PO ×2 (09:01→17:02)
[2021-09-16] MEDS: lisinopriL 10 MG TABLET 30 MG PO (09:01)
[2021-09-16] MEDS: amLODIPine Besylate 10 MG TABLET PO (09:02)
[2021-09-16] MEDS: Loratadine 10 MG TABLET PO (09:02)
[2021-09-16] MEDS: hydrALAZINE HCl 20 MG/ML VIAL 10 MG IVPUSH (09:02)
[2021-09-16] MEDS: Celecoxib 200 MG CAPSULE PO ×2 (10:20→22:27)
[2021-09-16] MEDS: Acetaminophen 325 MG TABLET 650 MG PO ×2 (10:20→22:27)
[2021-09-16 10:50] LABS: Thyroid Stimulating Hormone 0.17 uIU/mL (0.32-4.0)
--- NOTE | 2021-09-16 11:44 | PC.NURSE ---
pt is alert and oriented, skin appropriate for ethnicity, respirations even and unlabored, pt is still reporting a headache 06/12 with blurred vision/double vision denies dizziness at this time
--- NOTE | 2021-09-16 12:11 | PC.NURSE ---
pt of to mri
--- NOTE | 2021-09-16 12:53 | PM.EVENT ---
Event Note Date of Service: 09/16/21 Event Note: The patient was evaluated early in the morning in the emergency. She is reporting headache and double vision that has been stable since overnight. Denies any vomiting, light sensitivity or shortness of breath. Tried to transfer the patient to [facility] and spoke with Neurosurgery there with team of Dr. Ayad MCGEE who reviewed the images and recommended no transfer needed as the patient can follow as outpatient. Discussed with from Endocrinology who recommended blood test and to do the MRI to decide on the best next step. Pending MRI Repeat COVID testing To do prolactin, FSH, LH, cortisol, acth, T3 Still working on transferring the patient to [facility] or [facility]
--- NOTE | 2021-09-16 13:53 | MHC.CM.PN ---
pt lives alone in her apt. at baseline she is independent in her care. she does have family that lives in the area and can help her if needed. however, patient is covid positive and it is unclear how much help and how willing the family will be. the dc plan is unclear at this time, she may be transferred to acute care hospital for neuro intervention vs. return home possibly c vna for nsg and home PT pending a PT eval and o.p. neurology. cm to cont. to follow.
[2021-09-16 13:57] LABS: Influenza A PCR NEGATIVE (Negative); Influenza B PCR NEGATIVE (Negative); Resp Syncy Virus RNA Qual PCR NEGATIVE (Negative); SARS COV2 PCR INHOUSE POSITIVE (Negative)
--- NOTE | 2021-09-16 14:40 | P.DS_ITS ---
DS: Providers Provider Date of Service: 09/18/21 Date of admission: 09/16/21 11:52 Primary care physician: Anushka Figueredo DO Consults: 09/16/21 06:25 Consult to Neurology Routine Consulting Provider: [facility] Reason for consultation: Pituitary mass Has provider been notified: No DS: Diagnosis Discharge Diagnosis (1) Pituitary mass: Status: Acute (2) Headache: Status: Acute (3) COVID-19 virus infection: Status: Acute (4) Bitemporal hemianopia: Status: Acute DS: Summary Hospital Course Hospital Course: Admission note HPI This is a 60-year-old female with past medical history of breast cancer status post right breast lumpectomy, hypertension, presents to the hospital with complaints of headache, double vision, and being cross side.? Patient reports that she had right knee surgery on Tuesday, was doing well, until Tuesday she woke up with significant frontal headache, and pressure behind her eyes, the next day she developed double vision, noticed that her left eyes crossed.? She denies having any weakness or numbness in her arms or legs, has some tingling in her right hand but no weakness.? She reports no previous symptoms at all, no headache in the past, no drainage from the breast, no change in her weight, and all of this started on Tuesday.? She went to PCP today, she was tested for COVID-19 which came out positive, patient is asymptomatic from that aspect, has no shortness of breath, no cough, no fever or chills, she has had 2 vaccines against COVID-19 but has not yet had her booster shot. She otherwise denies any chest pain, no palpitations, no abdominal pain nausea or vomiting, no diarrhea constipation, no urinary symptoms and no lower extremity edema Next on arrival to the ED patient's vital significant for blood pressure of 182/[address] showed pituitary gland is enlarged, CT head and neck angiogram showed a pituitary mass which was called into the ED with no official read, pending neuro radiology reading. Patient will be admitted for observation with an MRI and neurology consult and may need transfer to tertiary care in a.m. Hospital course The patient was admitted for evaluation of headache and double vision. CT scan, CTA and MRI were done to the brain showing large pituitary gland mass. Blood work showed normal kidney function and CBC with low TSH. Evaluated by Neurology team who recommended transferred to tertiary [facility] and to use dexamethasone for the time being. The patient started on dexamethasone 4 mg q.6 hours. Discussed possible transfer with [facility] chandni, [facility], [facility] and [facility] with bed availability as main barrier for transfer. The patient double vision, headache worsened during the hospital stay with worsening ptosis and right sided cranial nerves 3 and 6 compression/palsy. Discussed with corrections specialist who recommended blood test including prolactin of 21.5 (low if we consider prolactinoma), pending the wrist of ACTH, cortisol, diluted prolactin, growth hormone. [facility]. Patient still positive for COVID. On room air with no respiratory complaints. Time Spent with Patient Time attestation: Total time spent providing and/or coordinating discharge services: Discharge coordination time: Greater than 30 minutes Quality: Stroke Does the patient have a stroke diagnosis?: No Physical Exam Vital Signs: Vital Signs: Last Vital Signs Temp 96.9 F 09/16/21 06:18 Pulse 91 09/16/21 13:21 Resp 14 09/16/21 08:37 BP 165/75 H 09/16/21 13:21 Pulse Ox 98 09/16/21 13:21 BMI result Body Mass Index 40.0 Const: Other: Constitutional : Alert, interactive, not in distress Eyes:? Ptosis in the right eye, no lateral movement of the right eye, decreased downward movement.? Left eye within normal..? Reactive pupils bilaterally.? Mildly decreased visual field mainly on the right side.? Visual acuity test was done showing 20/50 bilaterally without correction. ?Neck : Normal inspection, Supple Cardiovascular : RRR, S1 S2, no lower extremity edema Respiratory :? Chest wall moving bilaterally, no wheezes or rhonchi Gastrointestinal:? soft, lax, Normal bowel sounds, Non tender Skin : Warm, Dry Neurological : Alert & oriented x3, No focal deficit DS: Data Data Completed and Pending Completed studies during hospitalization [Text1]: Procedures Release Left Knee Joint, Open Approach (10/07/20) Removal of Liner from Left Knee Joint, Open Approach (10/07/20) Replacement of Right Knee Joint with Synthetic Substitute, Cemented, Open Approach (09/09/21) Supplement Left Knee Joint, Tibial Surface with Liner, Open Approach (10/07/20) Labs on day of discharge: Laboratory Results - last 24 hr 09/16/21 09/16/21 09/16/21 00:01 00:30 00:30 WBC 9.2 RBC 4.28 Hgb 12.1 Hct 39.3 MCV 91.8 MCH 28.3 MCHC 30.8 L RDW 14.2 Plt Count 324 D MPV 9.8 Immature Gran % (Auto) 1.2 H Neut % (Auto) 85.0 H Lymph % (Auto) 7.2 L [place] % (Auto) 6.6 Eos % (Auto) 0.0 Baso % (Auto) 0.0 Lymph # (Auto) 0.7 L [place] # (Auto) 0.6 Eos # (Auto) 0.0 Baso # (Auto) 0.0 Abs Immat Gran (auto) 0.11 H Absolute Neuts (auto) 7.8 Absolute Nucleated RBC 0.000 Nucleated RBC % (auto) 0.0 ESR Sodium 141 Potassium 4.5 Chloride 105 Carbon Dioxide 29 Anion Gap 12 BUN 32 H D Creatinine 0.71 Estim Creat Clear Calc 87.0 Estimated GFR > 60 POC Glucose 123 H Random Glucose 136 H Calcium 9.4 Magnesium 2.4 Total Bilirubin 0.4 AST 31 D ALT 39 H Alkaline Phosphatase 71 C-Reactive Protein Total Protein 6.6 Albumin 3.5 TSH COVID-19 ([facility]) COVID-19 Clin Com Influenza Type A (PCR) Influenza Type B (PCR) RSV RNA Qual (PCR) SARS-CoV-2 RNA (RT-PCR) 09/16/21 09/16/21 09/16/21 00:30 00:30 00:31 WBC RBC Hgb Hct MCV MCH MCHC RDW Plt Count MPV Immature Gran % (Auto) Neut % (Auto) Lymph % (Auto) [place] % (Auto) Eos % (Auto) Baso % (Auto) Lymph # (Auto) [place] # (Auto) Eos # (Auto) Baso # (Auto) Abs Immat Gran (auto) Absolute Neuts (auto) Absolute Nucleated RBC Nucleated RBC % (auto) ESR 38 H Sodium Potassium Chloride Carbon Dioxide Anion Gap BUN Creatinine Estim Creat Clear Calc Estimated GFR POC Glucose Random Glucose Calcium Magnesium Total Bilirubin AST ALT Alkaline Phosphatase C-Reactive Protein 1.80 H Total Protein Albumin TSH 0.17 L COVID-19 ([facility]) Positive A COVID-19 Clin Com See Note Influenza Type A (PCR) Influenza Type B (PCR) RSV RNA Qual (PCR) SARS-CoV-2 RNA (RT-PCR) 09/16/21 09/16/21 07:27 11:54 WBC RBC Hgb Hct MCV MCH MCHC RDW Plt Count MPV Immature Gran % (Auto) Neut % (Auto) Lymph % (Auto) [place] % (Auto) Eos % (Auto) Baso % (Auto) Lymph # (Auto) [place] # (Auto) Eos # (Auto) Baso # (Auto) Abs Immat Gran (auto) Absolute Neuts (auto) Absolute Nucleated RBC Nucleated RBC % (auto) ESR Sodium Potassium Chloride Carbon Dioxide Anion Gap BUN Creatinine Estim Creat Clear Calc Estimated GFR POC Glucose 112 Random Glucose Calcium Magnesium Total Bilirubin AST ALT Alkaline Phosphatase C-Reactive Protein Total Protein Albumin TSH COVID-19 ([facility]) COVID-19 Clin Com Influenza Type A (PCR) NEGATIVE Influenza Type B (PCR) NEGATIVE RSV RNA Qual (PCR) NEGATIVE SARS-CoV-2 RNA (RT-PCR) POSITIVE A Imaging MRI - head: Radiologist's impression: ITS Impressions Head/Neck CTA 09/16/21 00:09 IMPRESSION: 1. Expansile mass of the pituitary gland. This extends through the right aspect of the sella and into the right sphenoid sinus. This can be further evaluated with pituitary protocol MRI. 2. No acute vascular abnormality. No large vessel occlusion or flow-limiting stenosis. This critical result was discussed with DARON Silverio by telephone at 09/16/2021 2:09 AM and it was ascertained that the content and urgency of the report was understood at the time of direct communication. Head CT 09/16/21 00:13 IMPRESSION: No evidence of acute territorial infarction or intracranial hemorrhage. The pituitary gland is enlarged. Recommend further evaluation with an MR of the brain with and without intravenous contrast. Paranasal sinus disease. Chest X-Ray 09/16/21 00:55 IMPRESSION: Clear lungs. Brain MRI 09/16/21 12:46 IMPRESSION: 1. 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 A portion of this lesion extends into the sphenoid sinus. The lesion appears to invade the right greater than left aspects of the cavernous sinus with complete encasement of the cavernous segment of the right ICA. There appears to be approximately 50% encasement of the cavernous segment of the left ICA. 2. No additional acute intracranial abnormalities. Mild underlying microangiopathy. No additional abnormal intracranial enhancement. Head CT 09/17/21 21:04 IMPRESSION: Known pituitary mass is similar to recent imaging. No gross thrombosis of the cavernous sinus. No new findings. Discharge Plan Discharge Patient Disposition: [facility] Discharge Diagnosis: Pituitary mass Covid 19 infection s/p TKA Referrals: Anushka Figueredo DO [Primary Care Provider] - 1 Week Discharge Medications: New hydralazine 25 mg Tablet 25 mg PO TID 1 Days Qty: 3 RF: 0 dexamethasone sodium phosphate 4 mg/mL Solution 4 mg IVPUSH Q6H 1 Days Qty: 4 RF: 0 Continued oxycodone 5 mg tablet 5 mg PO DAILY PRN (Reason: pain) 20 Days Qty: 20 RF: 0 acetaminophen 325 mg Tablet 650 mg PO Q6H PRN (Reason: Pain, Mild (Pain Scale 1-3)) 30 Days Qty: 240 RF: 0 aspirin 325 mg Tablet 325 mg PO BID 42 Days Qty: 84 RF: 0 celecoxib 200 mg Capsule 200 mg PO BID 30 Days Qty: 60 RF: 0 docusate sodium 100 mg Capsule 100 mg PO BID 30 Days Qty: 60 RF: 0 oxybutynin chloride 10 mg tablet extended release 24hr 1 tab PO DAILY RF: 0 methocarbamol 750 mg tablet 1 tab PO BID PRN (Reason: muscle spasm) RF: 0 fluticasone propionate 50 mcg/actuation spray,suspension 2 spray intranasal DAILY RF: 0 loratadine 10 mg tablet 1 tab PO DAILY RF: 0 oxycodone 5 mg tablet 5 mg PO Q8H PRN (Reason: Pain, Moderate (Pain Scale 4-6) RF: 0 PreserVision AREDS-2 250-90-40-1 mg capsule 1 cap PO DAILY RF: 0 lisinopril 30 mg tablet 30 mg PO DAILY RF: 0 amitriptyline 10 mg tablet 10 mg PO BEDTIME RF: 0 nystatin 100,000 unit/gram powder 1 appl topical ONCE PRN (Reason: Rash) RF: 0 Narcan 4 mg/actuation spray,non-aerosol 1 spray intranasal ONCE PRN (Reason: Drug Intoxication Symptoms) RF: 0 albuterol sulfate 90 mcg/actuation HFA aerosol inhaler 2 puff inhalation Q4H PRN (Reason: Shortness Of Breath) RF: 0 amlodipine 10 mg tablet 10 mg PO DAILY RF: 0 sennosides 8.6 mg tablet 17.2 mg PO DAILY RF: 0 Discharge Orders: Discharge Order (Routine); Ordered 09/18/21 Ordered By: Sanjuanita Monte Diet: advance to usual diet Activity on Discharge: As tolerated Stand Alone Forms: Patient Portal Discharge page Care Plan Goals: Read below Health Concerns: Read below Plan of Treatment: Read below Assessment: You were admitted to the hospital for evaluation of headache and double vision. Images of the brain including CT scan, CTA and MRI showed a pituitary gland mass. Evaluated by Neurology team and discussed with radiology and Endocrinology with decision made to transfer you to a tertiary medical center for further evaluation and treatment. Facility to remove dean from TKA on 09/21/21 Discharge Date/Time: 09/18/21 15:35
[2021-09-16] MEDS: 0.9 % Sodium Chloride Flush 3 ML SYRINGE IVFLUSH ×2 (15:28→23:58)
--- NOTE | 2021-09-16 15:59 | PC.NURSE ---
pt is accept to [facility] but no beds available at this time, hopeful sometimes tomorrow awaiting bed assignment
--- NOTE | 2021-09-16 16:10 | PC.NURSE ---
[facility] MD Badillo [phone] called asking for patient's paperwork to be faxed to [phone]. ED receptionist secretary aware and will fax to number.
--- NOTE | 2021-09-16 16:17 | PC.NURSE ---
spoke to dr cleary pt needs visual acquit test q4h if any changes notify the provider as soon as possible
--- NOTE | 2021-09-16 18:34 | PC.NURSE ---
pt reports slight improvement in her headache after the oxycodone, pain at 9/10, no changes in nuro status still denies dizziness, but is having blurry and double vision
--- NOTE | 2021-09-16 20:05 | PC.NURSE ---
Assumed care of pt. Pt sleeping and in NAD, ice pack applied to eye per request
[2021-09-16] MEDS: Cyclobenzaprine HCl 10 MG TABLET PO (22:25)
[2021-09-16] MEDS: Amitriptyline HCl 10 MG TABLET PO (22:26)
[2021-09-17] VITALS (10 sets, daily range): BP systolic 144–178; BP diastolic 72–96; PULSE 61–70; RESP 16–20; TEMP 36.2–37.6; O2SAT 93–98
--- NOTE | 2021-09-17 | PC.NURSE ---
pt to floor via this RN in stable condition w/ all belongings, family notified
[2021-09-17] MEDS: oxyCODONE HCl Immed Release 5 MG TABLET PO ×3 (00:18→23:38)
--- NOTE | 2021-09-17 06:50 | PC.NURSE ---
Pt reports double vision with both eyes open. Double vision resolves when pt asked to close one eye. No worsening in vision since patient admitted to floor at 0000. Snellen eye chart test requested per MD. Will perform test if eye chart becomes available.
[2021-09-17 07:54] LABS: MANUAL DIFF FLAG NO
[2021-09-17 08:00] LABS: Eosinophils Percent Auto 0.1 % (0-4); Hematocrit 36.4 % (37.0-47.0); Hemoglobin 11.3 g/dl (12.0-16.0); Imm Gran Abs Auto 0.11 X10*3/uL (0.00-0.03); Imm Gran Pct Auto 1.1 % (0.0-0.4); Lymphocytes Absolute Auto 0.7 X10*3/uL (1.2-4.9); Lymphocytes Percent Auto 7.2 % (20-40); Mean Corpuscular Hemoglobin 28.1 pg (27.0-33.0); Mean Corpuscular Volume 90.5 fL (80.0-98.0); Mean Platelet Volume 9.8 fL (9.4-12.3); Monocytes Absolute Auto 0.4 X10*3/uL (0.1-1.2); Monocytes Percent Auto 4.3 % (2-11); Neutrophils Absolute Auto 8.5 x10*3/uL (2.0-8.3); Neutrophils Percent Auto 87.3 % (45-73); Platelet Count 301 X10*3/uL (160-400); Red Blood Count 4.02 X10*6/uL (4.20-5.50); Red Cell Distribution Width 14.2 % (11.0-16.0); White Blood Count 9.8 X10*3/uL (4.8-10.8)
[2021-09-17 08:21] LABS: Alanine Aminotransferase 29 U/L (0-31); Albumin Level 2.9 g/dL (3.5-5.0); Alkaline Phosphatase 62 U/L (39-117); Anion Gap 10 (12-20); Aspartate Amino Transferase 20 U/L (5-31); Bilirubin Direct 0.2 mg/dL (0.0-0.5); Bilirubin Total 0.4 mg/dL (0.0-1.0); Blood Urea Nitrogen 17 mg/dL (9-16); Carbon Dioxide 33 mmol/L (22-29); Chloride 102 mmol/L (96-108); Creatinine Clr Calc Pharmacy 101.4; Estimated Glomerular Filt Rate > 60; Glucose Random 139 mg/dL (60-115); Potassium 3.3 mmol/L (3.3-5.1); Sodium 142 mmol/L (135-145); Total Protein 5.4 g/dL (6.5-8.0)
--- NOTE | 2021-09-17 09:19 | PC.NURSE ---
Performed visual acuity test - from 20feet - Both eyes 20/50, left eye 20/70, right eye 20/5, patient wears glasses but does not have them with her.
[2021-09-17] MEDS: 0.9 % Sodium Chloride Flush 3 ML SYRINGE IVFLUSH ×3 (09:35→19:32)
[2021-09-17] MEDS: dexAMETHasone sod phosphate 4 MG/ML VIAL IVPUSH ×3 (09:35→19:31)
[2021-09-17] MEDS: Sennosides 8.6 MG TABLET 17.2 MG PO (09:36)
[2021-09-17] MEDS: Celecoxib 200 MG CAPSULE PO ×2 (09:36→19:31)
[2021-09-17] MEDS: Loratadine 10 MG TABLET PO (09:36)
[2021-09-17] MEDS: lisinopriL 10 MG TABLET 30 MG PO (09:37)
[2021-09-17] MEDS: Docusate Sodium 100 MG CAPSULE PO (09:37)
[2021-09-17] MEDS: Aspirin 325 MG TABLET PO ×2 (09:37→19:31)
[2021-09-17] MEDS: amLODIPine Besylate 10 MG TABLET PO (09:38)
--- NOTE | 2021-09-17 11:24 | HO.PM.IMPN ---
Subjective Subjective Date of Service: 09/17/21 Interval History: the patient was seen and evaluated this morning Laying in bed, complaining of headache and double vision mainly To Right eye ptosis, decrease movement to the right side Denies any fever, chills or shortness of breath No reported other overnight events. Systemic review: No fever, chills or weakness No chest pain, palpitation No shortness of breath or coughing No abdominal pain, nausea or vomiting No urinary symptoms No any rash or wounds Physical Exam Vital Signs: Vital Signs: Last Vital Signs Temp 97.2 F 09/17/21 11:21 Pulse 67 09/17/21 11:21 Resp 20 09/17/21 11:21 BP 168/96 H 09/17/21 11:21 Pulse Ox 97 09/17/21 11:21 BMI result Body Mass Index 41.2 Const: Other: Constitutional : Alert, interactive, not in distress Eyes: Ptosis in the right eye, no lateral movement of the right eye, decreased downward movement. Left eye within normal.. Reactive pupils bilaterally. Mildly decreased visual field mainly on the right side. Visual acuity test was done showing 20/50 bilaterally without correction. Neck : Normal inspection, Supple Cardiovascular : RRR, S1 S2, no lower extremity edema Respiratory : Chest wall moving bilaterally, no wheezes or rhonchi Gastrointestinal: soft, lax, Normal bowel sounds, Non tender Skin : Warm, Dry Neurological : Alert & oriented x3, No focal deficit Objective Data Active Medications Acetaminophen (Acetaminophen 325 Mg Tablet) 650 mg PO Q6H PRN PRN Reason: Pain, Mild (Pain Scale 1-3) Last Admin: 09/16/21 22:27 Dose: 650 mg Documented by: HAKAN Albuterol Sulfate (Albuterol Sulfate 90 Mcg 8 Gm Inhaler) 2 puff INHALE Q4H PRN PRN Reason: Shortness Of Breath Amitriptyline HCl (Amitriptyline Hcl 10 Mg Tablet) 10 mg PO BEDTIME [facility] Last Admin: 09/16/21 22:26 Dose: 10 mg Documented by: HAKAN Amlodipine Besylate (Amlodipine Besylate 10 Mg Tablet) 10 mg PO DAILY [facility]; Protocol Last Admin: 09/17/21 09:38 Dose: 10 mg Documented by: RASHEED Aspirin (Aspirin 325 Mg Tablet) 325 mg PO BID [facility] Last Admin: 09/17/21 09:37 Dose: 325 mg Documented by: RASHEED Celecoxib (Celecoxib 200 Mg Capsule) 200 mg PO BID [facility] Last Admin: 09/17/21 09:36 Dose: 200 mg Documented by: RASHEED Cyclobenzaprine HCl (Cyclobenzaprine Hcl 10 Mg Tablet) 10 mg PO BID PRN PRN Reason: muscle spasm Last Admin: 09/16/21 22:25 Dose: 10 mg Documented by: HAKAN Dexamethasone Sodium Phosphate (Dexamethasone Sod Phosphate 4 Mg/Ml Vial) 4 mg IVPUSH Q6H [facility] Last Admin: 09/17/21 09:35 Dose: 4 mg Documented by: RASHEED Docusate Sodium (Docusate Sodium 100 Mg Capsule) 100 mg PO DAILY PRN PRN Reason: Constipation Docusate Sodium (Docusate Sodium 100 Mg Capsule) 100 mg PO BID [facility] Last Admin: 09/17/21 09:37 Dose: 100 mg Documented by: RASHEED Fluticasone Propionate (Fluticasone Propionate Nasal 16 Gm [place]) 2 spray NOSTRIL-B DAILY [facility] Last Admin: 09/17/21 09:48 Dose: Not Given Documented by: RASHEED Non-Admin Reason: Patient Refused Lisinopril (Lisinopril 10 Mg Tablet) 30 mg PO DAILY [facility]; Protocol Last Admin: 09/17/21 09:37 Dose: 30 mg Documented by: RASHEED Loratadine (Loratadine 10 Mg Tablet) 10 mg PO DAILY [facility] Last Admin: 09/17/21 09:36 Dose: 10 mg Documented by: RASHEED Nystatin (Nystatin Powder 15 Gm Bottle) 1 appl TOPICAL ONCE PRN; Protocol PRN Reason: Rash Ondansetron HCl (Ondansetron Hcl 4 Mg/2 Ml Vial) 4 mg IVPUSH Q8H PRN PRN Reason: Nausea and Vomiting Oxybutynin Chloride (Oxybutynin Chloride Er 5 Mg Tab.Er.24) 10 mg PO DAILY [facility] Last Admin: 09/17/21 09:35 Dose: 10 mg Documented by: RASHEED Oxycodone HCl (Oxycodone Hcl Immed Release 5 Mg Tablet) 5 mg PO Q8H PRN PRN Reason: Pain, Moderate (Pain Scale 4-6 Last Admin: 09/17/21 00:18 Dose: 5 mg Documented by: CAS Senna (Sennosides 8.6 Mg Tablet) 17.2 mg PO DAILY [facility] Last Admin: 09/17/21 09:36 Dose: 17.2 mg Documented by: RASHEED Sodium Chloride (0.9 % Sodium Chloride Flush 3 Ml Syringe) 3 ml IVFLUSH QSHIFT [facility] Last Admin: 09/17/21 09:35 Dose: 3 ml Documented by: RASHEED Labs CBC & Chem 7: 09/17/21 07:42 09/17/21 07:42 Labs: Laboratory Results - last 24 hr 09/16/21 09/17/21 09/17/21 11:54 07:42 07:42 MCV 90.5 MCH 28.1 MCHC 31.0 RDW 14.2 Plt Count 301 MPV 9.8 Immature Gran % (Auto) 1.1 H Neut % (Auto) 87.3 H Lymph % (Auto) 7.2 L [place] % (Auto) 4.3 Eos % (Auto) 0.1 Baso % (Auto) 0.0 Lymph # (Auto) 0.7 L [place] # (Auto) 0.4 Eos # (Auto) 0.0 Baso # (Auto) 0.0 Abs Immat Gran (auto) 0.11 H Absolute Neuts (auto) 8.5 H Absolute Nucleated RBC 0.000 Nucleated RBC % (auto) 0.0 Anion Gap 10 L Estim Creat Clear Calc 101.4 Estimated GFR > 60 Random Glucose 139 H Calcium 9.0 Total Bilirubin 0.4 Direct Bilirubin 0.2 AST 20 ALT 29 Alkaline Phosphatase 62 Total Protein 5.4 L Albumin 2.9 L Influenza Type A (PCR) NEGATIVE Influenza Type B (PCR) NEGATIVE RSV RNA Qual (PCR) NEGATIVE SARS-CoV-2 RNA (RT-PCR) POSITIVE A Imaging MRI - head: Radiologist's impression: Impressions Head/Neck CTA 09/16/21 00:09 IMPRESSION: 1. Expansile mass of the pituitary gland. This extends through the right aspect of the sella and into the right sphenoid sinus. This can be further evaluated with pituitary protocol MRI. 2. No acute vascular abnormality. No large vessel occlusion or flow-limiting stenosis. This critical result was discussed with DARON Silverio by telephone at 09/16/2021 2:09 AM and it was ascertained that the content and urgency of the report was understood at the time of direct communication. Brain MRI 09/16/21 12:46 IMPRESSION: 1. 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 A portion of this lesion extends into the sphenoid sinus. The lesion appears to invade the right greater than left aspects of the cavernous sinus with complete encasement of the cavernous segment of the right ICA. There appears to be approximately 50% encasement of the cavernous segment of the left ICA. 2. No additional acute intracranial abnormalities. Mild underlying microangiopathy. No additional abnormal intracranial enhancement. Assessment and Plan (1) Headache: Status: Acute (2) COVID-19 virus infection: Status: Acute (3) Bitemporal hemianopia: Status: Acute (4) Pituitary mass: Status: Acute Assessment and Plan: 60-year-old female with past medical history of breast cancer status post lumpectomy, hypertension, presents to the hospital with complaints of headache, as well as pressure behind the eyes, and double vision. Found to have pituitary mass on CT imaging # pituitary mass # bitemporal hemianopsia at this time patient hemodynamically stable, no evidence of pituitary apoplexy has bitemporal hemianopia MRI showed lobulated mass centered within the sella turcica most consistent with a pituitary macroadenoma neurology consult appreciated, but steroids and plan discharge Discussed with Neurosurgery at [facility] for possible transfer, pending bed availability continue with dexamethasone 4 mg q.6 Pending prolactin, FSH, LH, cortisol, acth, T3 # COVID-19 infection no symptoms at this time monitor respiratory status Isolation, monitor # hypertension Remains elevated continue lisinopril and amlodipine DVT prophylaxis: SCDs given the pituitary mass, to avoid pituitary hemorrhage Quality Stroke Does the patient have a stroke diagnosis?: No VTE Prior VTE?: No VTE Risk Level:: Medical - moderate - high VTE Device Contraindication: N/A - Device Ordered VTE Drug Contraindication: Treatment Not Indicated
--- NOTE | 2021-09-17 12:15 | PC.NURSE ---
Horticultural Farmworker from [facility] called to inform that patient will not get a bed today. They will continue to update us daily or call as soon as bed becomes available. notified.
--- NOTE | 2021-09-17 15:06 | P.CNNE_ITS ---
History of Present Illness Data of Consult Service Date: 09/17/21 Primary Care Provider: DO KARIE Estrada Reason for consult: Headache 60 years old woman with new onset of severe headache double vision and a large pituitary mass. She said that her she was not any better since she arrived in emergency room or any worse. Headache was still the same moderate to severe with double vision. Review of Systems Review of Systems: She continues to complain of headache PMFSH Past Medical History Medical History Arthritis Asthma Back pain Cancer COVID-19 vaccine series completed History of headache HTN (hypertension) Hx of radiation therapy Impingement syndrome of right shoulder Personal history of tuberculosis Wears dentures Family History Family History Father No problems noted. Mother No problems noted. Surgical History Surgical History H/O colonoscopy History of lumpectomy of right breast History of revision of total knee arthroplasty History of sleeve gastrectomy Hx of dilation and curettage Hx of foot surgery Hx of hand surgery Hx of hysterectomy Hx of total knee replacement Social History Social History Household Members: Children Housing: House Are you a primary laboratory animal care veterinarian to a significant other at home: No Do you presently have visiting nurse or other home services: Yes ([employer]) Alcohol intake: never Patient Tobacco Use Status: Never used Tobacco Use of substances other than those prescribed or required for medical reasons: No Currently Displaying Signs/Symptoms of Drug Intoxication Withdrawal: No Have you been hit, kicked, punched, or otherwise hurt by someone within the past year? If so, by whom?: No Do you feel safe in your current relationship?: No Current Relationship Is there a partner from a previous relationship who is making you feel unsafe now?: No Are you made to feel afraid or neglected: No Advance Directives: No Advance Directives Information Provided: No Do you have thoughts of harming others: None Do you have a plan to hurt others: No Plan Recently lost weight without trying: No Nutrition Risks: No Nutritional Risk Patient : No service: No Current occupational status: disabled Current occupation: Right Handed Meds Allergies Allergy/AdvReac Type Severity Reaction Status Date / Time BANDAIDS Allergy Intermediate BLISTERS Uncoded 06/01/21 10:20 STERI-STRIPS Allergy Intermediate BLISTERS Uncoded 06/01/21 10:20 Active Medications: Current Medications Acetaminophen (Acetaminophen 325 Mg Tablet) 650 mg PO Q6H PRN PRN Reason: Pain, Mild (Pain Scale 1-3) Last Admin: 09/16/21 22:27 Dose: 650 mg Documented by: Albuterol Sulfate (Albuterol Sulfate 90 Mcg 8 Gm Inhaler) 2 puff INHALE Q4H PRN PRN Reason: Shortness Of Breath Amitriptyline HCl (Amitriptyline Hcl 10 Mg Tablet) 10 mg PO BEDTIME [facility] Last Admin: 09/16/21 22:26 Dose: 10 mg Documented by: Amlodipine Besylate (Amlodipine Besylate 10 Mg Tablet) 10 mg PO DAILY [facility]; Protocol Last Admin: 09/17/21 09:38 Dose: 10 mg Documented by: Aspirin (Aspirin 325 Mg Tablet) 325 mg PO BID [facility] Last Admin: 09/17/21 09:37 Dose: 325 mg Documented by: Celecoxib (Celecoxib 200 Mg Capsule) 200 mg PO BID [facility] Last Admin: 09/17/21 09:36 Dose: 200 mg Documented by: Cyclobenzaprine HCl (Cyclobenzaprine Hcl 10 Mg Tablet) 10 mg PO BID PRN PRN Reason: muscle spasm Last Admin: 09/16/21 22:25 Dose: 10 mg Documented by: Dexamethasone Sodium Phosphate (Dexamethasone Sod Phosphate 4 Mg/Ml Vial) 4 mg IVPUSH Q6H [facility] Last Admin: 09/17/21 14:56 Dose: 4 mg Documented by: Docusate Sodium (Docusate Sodium 100 Mg Capsule) 100 mg PO DAILY PRN PRN Reason: Constipation Docusate Sodium (Docusate Sodium 100 Mg Capsule) 100 mg PO BID [facility] Last Admin: 09/17/21 09:37 Dose: 100 mg Documented by: Fluticasone Propionate (Fluticasone Propionate Nasal 16 Gm Sprague) 2 spray NOSTRIL-B DAILY [facility] Last Admin: 09/17/21 09:48 Dose: Not Given Documented by: Lisinopril (Lisinopril 10 Mg Tablet) 30 mg PO DAILY [facility]; Protocol Last Admin: 09/17/21 09:37 Dose: 30 mg Documented by: Loratadine (Loratadine 10 Mg Tablet) 10 mg PO DAILY [facility] Last Admin: 09/17/21 09:36 Dose: 10 mg Documented by: Nystatin (Nystatin Powder 15 Gm Bottle) 1 appl TOPICAL ONCE PRN; Protocol PRN Reason: Rash Ondansetron HCl (Ondansetron Hcl 4 Mg/2 Ml Vial) 4 mg IVPUSH Q8H PRN PRN Reason: Nausea and Vomiting Oxybutynin Chloride (Oxybutynin Chloride Er 5 Mg Tab.Er.24) 10 mg PO DAILY [facility] Last Admin: 09/17/21 09:35 Dose: 10 mg Documented by: Oxycodone HCl (Oxycodone Hcl Immed Release 5 Mg Tablet) 5 mg PO Q8H PRN PRN Reason: Pain, Moderate (Pain Scale 4-6 Last Admin: 09/17/21 14:56 Dose: 5 mg Documented by: Senna (Sennosides 8.6 Mg Tablet) 17.2 mg PO DAILY [facility] Last Admin: 09/17/21 09:36 Dose: 17.2 mg Documented by: Sodium Chloride (0.9 % Sodium Chloride Flush 3 Ml Syringe) [facility] Last Admin: 09/17/21 14:56 Dose: 3 ml Documented by: Home Medications Medication Instructions Recorded Confirmed Last Taken Type albuterol sulfate 90 mcg/actuation 2 puff INHALATION Q4H PRN 09/09/20 09/16/21 10/06/20 History aerosol inhaler amlodipine 10 mg tablet 10 mg PO DAILY 09/09/20 09/16/21 10/07/20 05:30 History sennosides 8.6 mg tablet 17.2 mg PO DAILY 09/09/20 09/16/21 10/06/20 History amitriptyline 10 mg tablet 10 mg PO BEDTIME 06/01/21 09/16/21 Unknown History lisinopril 30 mg tablet 30 mg PO DAILY 06/01/21 09/16/21 Unknown History naloxone 4 mg/actuation nasal 1 spray INTRANASAL ONCE PRN 06/01/21 09/16/21 Unknown History spray (Narcan) nystatin 100,000 unit/gram topical 1 appl TOPICAL ONCE PRN 06/01/21 09/16/21 U nknown History powder vit C 250 mg-vit E 90 mg-zinc 40 1 cap PO DAILY 06/01/21 09/16/21 Unknown History mg-copper 1 if-[id number] capsule (PreserVision AREDS-2) fluticasone propionate 50 2 spray INTRANASAL DAILY 09/16/21 09/16/21 Unknown History mcg/actuation nasal spray,suspension loratadine 10 mg tablet 1 tab PO DAILY 09/16/21 09/16/21 Unknown History methocarbamol 750 mg tablet 1 tab PO BID PRN 09/16/21 09/16/21 Unknown History oxybutynin chloride 10 mg 1 tab PO DAILY 09/16/21 09/16/21 Unknown History tablet,extended release 24 hr oxycodone 5 mg tablet 5 mg PO Q8H PRN 09/16/21 09/16/21 Unknown History Physical Exam Vital Signs: Vital Signs: Last Vital Signs Temp 97.2 F 09/17/21 11:21 Pulse 67 09/17/21 11:21 Resp 20 09/17/21 11:21 BP 168/96 H 09/17/21 11:21 Pulse Ox 97 09/17/21 11:21 BMI result Body Mass Index 41.2 Neuro: Other: Limited as she is in COVID floor. She continues to have right eye movement abnormalities noted on admission. Results Labs CBC & Chem 7: 09/17/21 07:42 09/17/21 07:42 Labs: Short CBC 09/17/21 09/17/21 Range/Units 07:42 07:42 WBC 9.8 Cancelled (4.8-10.8) X10*3/uL Hgb 11.3 L Cancelled (12.0-16.0) g/dl Hct 36.4 L Cancelled (37.0-47.0) % Plt Count 301 Cancelled (160-400) X10*3/uL BMP 09/17/21 07:42 Sodium 142 Potassium 3.3 D Chloride 102 Carbon Dioxide 33 H BUN 17 H Creatinine 0.62 Calcium 9.0 Liver Function 09/17/21 Range/Units 07:42 Total Bilirubin 0.4 (0.0-1.0) mg/dL Direct Bilirubin 0.2 (0.0-0.5) mg/dL AST 20 (5-31) U/L ALT 29 (0-31) U/L Alkaline Phosphatase 62 (39-117) U/L Albumin 2.9 L (3.5-5.0) g/dL Her MRI revealed a large pituitary area mass, which could be a pituitary adenoma or macro adenoma. Tanner analysis was pending. 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 Her mood analysis was pending. Her transfer to a tertiary care institution has not been possible so far. She primarily needs a neuro surgical consultation. Until harm analysis is back, and she continues to complain of headache, my recommendation is to continue steroid and give her Decadron 4 mg q.6 hours for a few days to see if that would help reducing some swelling and maybe headache and neurological abnormality. Procedures Date of Service Date of Service: 09/17/21
[2021-09-17] MEDS: hydrALAZINE HCl 25 MG TABLET PO ×2 (16:29→19:31)
[2021-09-17] MEDS: Acetaminophen 325 MG TABLET 650 MG PO (18:36)
[2021-09-17] MEDS: Amitriptyline HCl 10 MG TABLET PO (19:31)
[2021-09-17] MEDS: Morphine Sulfate 4 MG/ML CARTRIDGE IVPUSH (19:56)
[2021-09-17] MEDS: iohexoL 350 MG/ML 100 ML INFUS..BTL 85 ML IV (20:34)
[2021-09-18] MEDS: dexAMETHasone sod phosphate 4 MG/ML VIAL IVPUSH ×3 (02:55→14:41)
[2021-09-18 03:25] VITALS: PULSE 60
[2021-09-18] MEDS: oxyCODONE HCl Immed Release 5 MG TABLET PO (04:50)
[2021-09-18 05:21] LABS: Lutenizing Hormone 3.9 mIU/mL; Triiodothyronine T3 Free 2.3 pg/mL (2.3-4.2)
[2021-09-18 05:35] LABS: Prolactin 21.5 ng/mL
[2021-09-18 07:07] LABS: Hematocrit 39.9 % (37.0-47.0); Hemoglobin 12.5 g/dl (12.0-16.0); Mean Corpuscular HGB Conc 31.3 g/dl (31.0-35.0); Mean Corpuscular Hemoglobin 28.3 pg (27.0-33.0); Mean Corpuscular Volume 90.5 fL (80.0-98.0); Mean Platelet Volume 9.9 fL (9.4-12.3); Platelet Count 378 X10*3/uL (160-400); Red Blood Count 4.41 X10*6/uL (4.20-5.50); Red Cell Distribution Width 14.2 % (11.0-16.0); White Blood Count 12.5 X10*3/uL (4.8-10.8)
[2021-09-18 07:27] LABS: Anion Gap 10 (12-20); Blood Urea Nitrogen 27 mg/dL (9-16); C Reactive Protein 0.57 mg/dL (< or = 0.50); Calcium 9.2 mg/dL (8.4-10.2); Carbon Dioxide 33 mmol/L (22-29); Chloride 101 mmol/L (96-108); Creatinine Clr Calc Pharmacy 96.7; Estimated Glomerular Filt Rate > 60; Glucose Random 118 mg/dL (60-115); Lactate Dehydrogenase 275 U/L (122-220); Potassium 4.2 mmol/L (3.3-5.1); Sodium 140 mmol/L (135-145)
[2021-09-18 07:29] VITALS: BP 151/66; PULSE 54; RESP 16; TEMP 36.7; O2SAT 95
[2021-09-18] MEDS: 0.9 % Sodium Chloride Flush 3 ML SYRINGE IVFLUSH ×2 (08:08→14:42)
[2021-09-18] MEDS: Aspirin 325 MG TABLET PO (08:08)
[2021-09-18] MEDS: Sennosides 8.6 MG TABLET 17.2 MG PO (08:09)
[2021-09-18] MEDS: Loratadine 10 MG TABLET PO (08:09)
[2021-09-18] MEDS: lisinopriL 10 MG TABLET 30 MG PO (08:09)
[2021-09-18] MEDS: Celecoxib 200 MG CAPSULE PO (08:09)
[2021-09-18] MEDS: hydrALAZINE HCl 25 MG TABLET PO ×2 (08:09→14:41)
[2021-09-18] MEDS: Docusate Sodium 100 MG CAPSULE PO (08:09)
[2021-09-18] MEDS: amLODIPine Besylate 10 MG TABLET PO (08:12)
[2021-09-18] MEDS: lisinopriL 40 MG TABLET PO (09:37)
[2021-09-18] MEDS: Morphine Sulfate 2 MG/ML CARTRIDGE IVPUSH ×2 (11:18→15:17)
--- NOTE | 2021-09-18 11:31 | MHC.CM.PN ---
Per ROUNDS discussion, a transfer to [facility] or [facility] is the goal(Pituitary Mass) and CM will follow as needed for dc planning.
[2021-09-18 11:53] VITALS: BP 149/70; PULSE 84; RESP 18; TEMP 37; O2SAT 94
[2021-09-18 12:06] LABS: Prolactin Undiluted 21.8 ng/mL
[2021-09-18 17:50] LABS: Adrenocorticotropic Hormone 121 pg/mL (6-50)
[2021-09-21 15:01] LABS: IGF-1 (Somatomedin C) 167 ng/mL (41-279); IGF-1 Z Score (Female) 0.6 SD (-2.0 - +2.0)
[2021-09-22 17:12] LABS: Foll Stim Horm Pedi 15.61 mIU/mL
[2021-09-24 04:02] LABS: Estradiol Free 0.68 pg/mL; Estradiol, Ultrasensitive 34 pg/mL
== END 2021-09-18 15:35 | disposition short-term general hospital (02) | DRG 643 ==
LOC: HO.ED 23:41 → HO.EDOVER 09-16 07:52 → HO.IMC 09-16 23:20
PROVIDERS: Physician Assistant; Admitting Provider Internal Medicine; Emergency Provider Emergency Medicine Emergency Medical Services; PCP Family Medicine; Visit Provider Student in an Organized Health Care Education/Training Program
DX: E23.7 Disorder of pituitary gland, unspecified (principal); U07.1 COVID-19; I10 Essential (primary) hypertension; H53.47 Heteronymous bilateral field defects; Z79.1 Long term (current) use of non-steroidal anti-inflammatories (NSAID); Z79.82 Long term (current) use of aspirin; Z79.899 Other long term (current) drug therapy
CPT/HCPCS: 0241U; 36415; 70450; 70460; 70496; 70498; 70553; 71046; 80048; 80053; 80076; 82024; 82530; 82670; 82681; 82947; 83001; 83002; 83615; 83735; 84146; 84305; 84443; 84481; 85025; 85027; 85652; 86140; 87635; 93005; 96360; 99285; A9585; J1100; J2270; Q9967

== ENCOUNTER 2021-10-12 11:05 | Outpatient (REF) | payer OTHER, SELFPAY | END 2021-10-12 11:06 | disposition home or self-care (01) | LOC: HO.US 11:05 | PROVIDERS: Visit Provider Physician Assistant | DX: M25.561 Pain in right knee (principal); M79.671 Pain in right foot; R60.9 Edema, unspecified; Z96.651 Presence of right artificial knee joint; Z86.16 Personal history of COVID-19 | CPT/HCPCS: 99212 ==

== ENCOUNTER 2021-10-13 10:19 | Outpatient (REF) | payer OTHER, SELFPAY ==
--- NOTE | ~2021-10-13 | US_ITS ---
EXAMINATION: US VENOUS ULTRASOUND WITH DOPPLER LOWER EXTREMITY, RIGHT CLINICAL INFORMATION: Right knee pain. On initial right right knee joint COMPARISON: None TECHNIQUE: Ultrasound of the deep veins is performed from the hip to the calf with compression sonography and color and pulse Doppler assessment. Spectral analysis with color-flow imaging is performed. FINDINGS: There is normal venous compression and respiratory variation and augmented flow. The visualized common femoral vein, superficial femoral vein, profunda femoral vein, popliteal vein, and the trifurcation region shows no evidence of deep venous thrombosis. There is no significant popliteal fossa cyst. If the patient's symptoms persist, followup ultrasound in 5 days 7 days might be of value to exclude proximal propagation from a non-visualized calf vein. US/US venous duplex LE RT IMPRESSION: No DVT demonstrated in the right lower extremity.
== END 2021-10-13 10:20 | disposition home or self-care (01) ==
LOC: HO.US 10:19
PROVIDERS: PCP Family Medicine; Visit Provider Physician Assistant
DX: M79.604 Pain in right leg (principal); R60.9 Edema, unspecified; Z96.651 Presence of right artificial knee joint
CPT/HCPCS: 93971

== ENCOUNTER 2021-10-29 06:42 | Outpatient (REF) | payer OTHER, SELFPAY | END 2021-10-29 06:43 | disposition home or self-care (01) | LOC: HO.HOSX 06:42 | PROVIDERS: Visit Provider Physician Assistant | DX: Z13.89 Encounter for screening for other disorder (principal) ==

== ENCOUNTER 2021-11-02 08:54 | Outpatient (REF) | payer OTHER, SELFPAY ==
--- NOTE | ~2021-11-02 | XR_ITS ---
EXAMINATION: XR KNEES, STANDING AP XR KNEE, RIGHT CLINICAL INFORMATION: Right knee pain COMPARISON: Radiographs right knee 09/09/2021, standing AP knees 06/01/2021 TECHNIQUE: Standing AP view of both knees is performed along with AP and lateral views of the right knee. FINDINGS: Right: There is right total knee arthroplasty. The hardware is intact. There is no fracture or dislocation or destructive process. No osteolysis. Some interval smooth heterotopic bone versus benign periosteal new bone is noted medial side just above the medial femoral condyle. Lateral view shows edema in the region of mid to distal quadriceps tendon. Again, there is some mineralization within the mid to distal quadriceps. There is edema are in region of Hoffa's fat pad and extensor mechanism. No gas tracking in soft tissues. Left: There has been prior knee arthroplasty. Hardware is intact. There is no destructive process or fracture or osteolysis. Some stable mineralization is again noted in region of proximal medial collateral ligament, suggesting sequela from remote injury. XR/XR knee RT 2V IMPRESSION: Right: -Status post total knee arthroplasty. Hardware intact. No osteolysis. -Edema are in region of extensor mechanism. Chronic mineralization quadriceps tendon suprapatellar effusion. No gas in soft tissues. Left: -Prior knee arthroplasty. Hardware intact. No acute abnormality.
--- NOTE | ~2021-11-02 | XR_ITS ---
EXAMINATION: XR KNEES, STANDING AP XR KNEE, RIGHT CLINICAL INFORMATION: Right knee pain COMPARISON: Radiographs right knee 09/09/2021, standing AP knees 06/01/2021 TECHNIQUE: Standing AP view of both knees is performed along with AP and lateral views of the right knee. FINDINGS: Right: There is right total knee arthroplasty. The hardware is intact. There is no fracture or dislocation or destructive process. No osteolysis. Some interval smooth heterotopic bone versus benign periosteal new bone is noted medial side just above the medial femoral condyle. Lateral view shows edema in the region of mid to distal quadriceps tendon. Again, there is some mineralization within the mid to distal quadriceps. There is edema are in region of Hoffa's fat pad and extensor mechanism. No gas tracking in soft tissues. Left: There has been prior knee arthroplasty. Hardware is intact. There is no destructive process or fracture or osteolysis. Some stable mineralization is again noted in region of proximal medial collateral ligament, suggesting sequela from remote injury. XR/XR knee standing BI IMPRESSION: Right: -Status post total knee arthroplasty. Hardware intact. No osteolysis. -Edema are in region of extensor mechanism. Chronic mineralization quadriceps tendon suprapatellar effusion. No gas in soft tissues. Left: -Prior knee arthroplasty. Hardware intact. No acute abnormality.
[2021-11-02 10:05] LABS: Free T4 (Free Thyroxine) 1.12 ng/dL (0.71-1.85); Thyroid Stimulating Hormone 0.91 uIU/mL (0.32-4.0)
[2021-11-03 18:01] LABS: Adrenocorticotropic Hormone 54 pg/mL (6-50)
== END 2021-11-02 08:55 | disposition home or self-care (01) ==
LOC: HO.XRAY 08:54
PROVIDERS: Visit Provider Student in an Organized Health Care Education/Training Program
DX: M25.561 Pain in right knee (principal); M25.562 Pain in left knee; D35.2 Benign neoplasm of pituitary gland
CPT/HCPCS: 36415; 73560; 73565; 82024; 84439; 84443

== ENCOUNTER 2021-11-17 09:23 | Outpatient (REF) | payer OTHER, SELFPAY ==
--- NOTE | ~2021-11-17 | MR_ITS ---
EXAMINATION: MR BRAIN WITHOUT AND WITH CONTRAST CLINICAL INFORMATION: 61-year-old undergoing follow-up for pituitary neoplasm. COMPARISON: 09/16/2021 MRI. TECHNIQUE: Multiplanar, multisequence MRI of the brain/sella was obtained before and after the intravenous administration of 5 mL Gadavist. FINDINGS: The posterior aspect of the previously noted sellar mass has diminished in height centrally, now measuring 0.8 cm in craniocaudal height at the level of the infundibulum compared to 1.6 cm on the previous exam. Again noted, is right-sided cavernous sinus involvement, somewhat improved from previous exam with diminished maximum transverse dimension of this mass, now measuring 2.7 cm compared to 3.3 cm on the previous study. Left cavernous sinus involvement is again noted. The anterior margin of the mass measures 2 cm maximum craniocaudal dimension in the sagittal plane, which is slightly diminished in size by 3 mm from previous exam. Maximum sagittal dimension of the mass is 2.6 cm compared to 3 cm on previous study. The mass erodes the floor of the sella asymmetric to the right and extends anterolaterally into the sphenoid sinus asymmetric to the right with diminished bulk invading the sphenoid sinus since previous exam. The infundibulum enhances normally and is deviated slightly to the left but slightly improved in terms of deviation and enhancement. The prechiasmatic optic nerves, chiasm and optic tracts appear uncompromised. No focal reduced diffusion is seen to suggest acute or subacute cerebral ischemia. Redemonstrated are scattered nonenhancing punctate T2 hyperintensities in the white matter of both cerebral hemispheres largely unchanged in appearance, likely reflecting minimal chronic ischemic microangiopathy. No other intracranial mass lesions, abnormal enhancement, space-occupying process or mass effect are identified. No extra-axial fluid collections are seen. The ventricular system is normal in appearance with no hydrocephalus, stable in appearance. Signal voids are seen in the visualized major intracranial vessels. There is mild mucosal thickening in the ethmoid complex, stable in appearance. Probable small retention cyst right maxillary sinus on current study. MR/MR head/brain wo/w con IMPRESSION: 1. Previously noted pituitary mass has diminished in overall bulk. See above for measurements in 3 dimensions. 2. No acute intracranial process. Stable minimal chronic ischemic microangiopathy.
== END 2021-11-17 09:24 | disposition home or self-care (01) ==
LOC: HO.MRI 09:23
PROVIDERS: Visit Provider Surgery
DX: D35.2 Benign neoplasm of pituitary gland (principal)
CPT/HCPCS: 70553; A9585

== ENCOUNTER 2021-11-26 08:33 | Outpatient (REF) | payer OTHER, SELFPAY ==
[2021-11-26 10:51] LABS: Anion Gap 15 (12-20); Blood Urea Nitrogen 13 mg/dL (9-16); Calcium 9.7 mg/dL (8.4-10.2); Carbon Dioxide 22 mmol/L (22-29); Chloride 108 mmol/L (96-108); Estimated Glomerular Filt Rate > 60; Glucose Random 79 mg/dL (60-115); Potassium 4.3 mmol/L (3.3-5.1); Sodium 141 mmol/L (135-145)
[2021-11-26 11:12] LABS: Osmolality, Serum 292 mosm/kg (281-305)
[2021-11-26 11:13] LABS: Free T4 (Free Thyroxine) 1.03 ng/dL (0.71-1.85); Thyroid Stimulating Hormone 0.84 uIU/mL (0.32-4.0)
[2021-11-26 12:04] LABS: Cortisol Random 6.3 ug/dL
[2021-11-27 18:52] LABS: Sex Hormone Binding Globulin 89 nmol/L (14-73)
[2021-11-27 19:17] LABS: Triiodothyronine T3 Total 142 ng/dL (76-181)
[2021-11-27 23:32] LABS: Follicle Stimulating Hormone 41.7 mIU/mL; Lutenizing Hormone 22.6 mIU/mL; Prolactin Undiluted 6.4 ng/mL
[2021-11-30 22:56] LABS: Adrenocorticotropic Hormone 58 pg/mL (6-50)
[2021-12-01 14:01] LABS: IGF-1 (Somatomedin C) 79 ng/mL (41-279); IGF-1 Z Score (Female) -0.9 SD (-2.0 - +2.0)
[2021-12-03 22:27] LABS: Estradiol Free 0.18 pg/mL; Estradiol, Ultrasensitive 14 pg/mL
== END 2021-11-26 08:34 | disposition home or self-care (01) ==
LOC: HO.LAB 08:33
PROVIDERS: PCP Family Medicine; Visit Provider Internal Medicine
DX: D35.2 Benign neoplasm of pituitary gland (principal)
CPT/HCPCS: 36415; 80048; 82024; 82533; 82670; 82681; 83001; 83002; 83930; 84146; 84270; 84305; 84439; 84443; 84480; 99202

== ENCOUNTER → 2022-02-08 08:27 | Outpatient (BNVA) | payer OTHER, SELFPAY | PROVIDERS: PCP Family Medicine; Visit Provider Internal Medicine | DX: D35.2 Benign neoplasm of pituitary gland (principal) | CPT/HCPCS: Q3014 ==

== ENCOUNTER 2022-02-17 07:01 | Outpatient (REF) | payer OTHER, SELFPAY ==
[2022-02-17 08:00] LABS: Anion Gap 10 (12-20); Blood Urea Nitrogen 17 mg/dL (9-16); Calcium 9.7 mg/dL (8.4-10.2); Carbon Dioxide 30 mmol/L (22-29); Chloride 105 mmol/L (96-108); Estimated Glomerular Filt Rate > 60; Glucose Random 93 mg/dL (60-115); Sodium 141 mmol/L (135-145)
[2022-02-17 08:24] LABS: Free T4 (Free Thyroxine) 1.08 ng/dL (0.71-1.85); Thyroid Stimulating Hormone 1.37 uIU/mL (0.32-4.0)
[2022-02-17 12:06] LABS: Osmolality, Serum 300 mosm/kg (281-305)
[2022-02-17 14:54] LABS: Cortisol Random 14.3 ug/dL
[2022-02-18 22:00] LABS: Sex Hormone Binding Globulin 61 nmol/L (14-73); Triiodothyronine T3 Total 126 ng/dL (76-181)
[2022-02-18 22:14] LABS: Adrenocorticotropic Hormone 72 pg/mL (6-50)
[2022-02-20 13:16] LABS: Follicle Stimulating Hormone 40.9 mIU/mL; Lutenizing Hormone 19.7 mIU/mL; Prolactin Undiluted 8.1 ng/mL
[2022-02-21 15:17] LABS: IGF-1 (Somatomedin C) 88 ng/mL (41-279); IGF-1 Z Score (Female) -0.7 SD (-2.0 - +2.0)
[2022-03-04 05:06] LABS: Estradiol Free 0.16 pg/mL; Estradiol, Ultrasensitive 9 pg/mL
== END 2022-02-17 07:02 | disposition home or self-care (01) ==
LOC: HO.LAB 07:01
PROVIDERS: PCP Family Medicine; Visit Provider Internal Medicine
DX: D35.2 Benign neoplasm of pituitary gland (principal)
CPT/HCPCS: 36415; 80048; 82024; 82533; 82670; 82681; 83001; 83002; 83930; 84146; 84270; 84305; 84439; 84443; 84480

== ENCOUNTER 2022-03-04 08:20 | Outpatient (REF) | payer OTHER, SELFPAY ==
--- NOTE | ~2022-03-04 | MR_ITS ---
EXAMINATION: MR BRAIN WITHOUT AND WITH CONTRAST CLINICAL INFORMATION: Pituitary mass. Self-reported blurry vision. Left high. Double vision. COMPARISON: MRI brain 09/16/2021, 11/17/2021 TECHNIQUE: Multiplanar, multisequence MRI of the brain was obtained before and after the intravenous administration of 5 mL Gadavist. Reticular protocol MRI sequences are obtained. FINDINGS: An enhancing tumor is present in the sella with partial extension the suprasellar cistern and sphenoid sinus with possible erosion and extension to the clivus. The lesion demonstrates approximately 180 degree continuity with the cavernous portion of the right internal carotid artery and approximate 90 degrees continuity with the cavernous portions of the left internal carotid artery. Mild leftward deviation of the pituitary stalk is identified. The lesion is slightly diminished in size compared with 11/17/2021 currently measuring 2.4 cm x 1.8 cm x 1.3 cm (lateral by AP by SI). Contemporaneous measurements applied to the exam of 11/17/2021 demonstrate that in similar dimensions the lesion previously measured 2.7 cm x 2.3 cm x 1.5 cm. Diminished in size of a lesion is visualized to good advantage on coronal postcontrast enhanced images. For example, compare series 9 image 17 on the current exam with series 10 image 11 on the comparison exam which demonstrates decreased right inferolateral extent of the lesion is slightly decreased extent of the right superolateral aspect of the lesion. Lesion partially effaces the suprasellar cistern but does not impinge upon the optic chiasm. No acute intracranial infarcts or acute intercranial hemorrhage noted. The valeria cervical junction cerebellar tonsils are normal in appearance. Orbits and globes are normal in appearance making allowances for motion artifact. MR/MR head/brain wo/w con IMPRESSION: *Pituitary tumor slightly decreased in size compared with 11/17/2020 and definitively decreased in size compared with 09/16/2021. The lesion currently measures 2.4 cm x 1.8 cm x 1.3 cm (lateral by AP by SI) and measured 2.7 cm x 2.3 cm x 1.5 cm in similar dimensions on the comparison study of 11/17/2020. Lesion demonstrates evidence of invasion of the right cavernous sinus, clivus and sphenoid sinus with partial encasement of the cavernous portion of the right internal carotid artery which remains patent. No lesion does not exert mass effect upon the optic chiasm.
== END 2022-03-04 08:21 | disposition home or self-care (01) ==
LOC: HO.MRI 08:20
PROVIDERS: Visit Provider Physician Assistant Surgical
DX: D35.2 Benign neoplasm of pituitary gland (principal)
CPT/HCPCS: 70553; A9585

== ENCOUNTER 2022-03-18 08:10 | Outpatient (REF) | payer OTHER, SELFPAY ==
--- NOTE | ~2022-03-18 | MM_ITS ---
EXAMINATION: MM SCREENING DIGITAL BREAST TOMOSYNTHESIS, BILATERAL CLINICAL INFORMATION: Screening. Asymptomatic. History right DCIS status post lumpectomy 2013. COMPARISON: Mammography: 03/11/2021, 07/09/2019, 06/28/2018 TECHNIQUE: Digital breast tomosynthesis is performed in both the craniocaudal and mediolateral oblique views along with computer-aided detection (CAD). Synthesized 2D images are generated from the tomosynthesis. Additional bilateral MLO views are provided. FINDINGS: There are scattered areas of fibroglandular density (ACR BI-RADS breast composition Category b). There are post therapy changes right breast as expected with mild breast size and stable scarring posterior upper outer quadrant. Neither breast shows interval mass or architectural abnormality or abnormal calcifications. The axilla are unremarkable. There are no significant changes from prior exams. MM/MM tomosynthesis screening BI IMPRESSION: -No mammographic evidence of malignancy. -Postsurgical changes right breast, stable. ASSESSMENT: BI-RADS 2: Benign RECOMMENDATION: Routine annual mammography screening. This patient's information was entered into a reminder system with a target due date for their next mammogram.
== END 2022-03-18 08:11 | disposition home or self-care (01) ==
LOC: HO.MAMMO 08:10
PROVIDERS: PCP Family Medicine; Visit Provider Family Medicine
DX: Z12.31 Encounter for screening mammogram for malignant neoplasm of breast (principal)
CPT/HCPCS: 77063; 77067

== ENCOUNTER → 2022-03-22 07:30 | Outpatient (BNVA) | payer OTHER, SELFPAY | PROVIDERS: PCP Family Medicine; Visit Provider Internal Medicine | DX: D35.2 Benign neoplasm of pituitary gland (principal); E27.0 Other adrenocortical overactivity | CPT/HCPCS: Q3014 ==

== ENCOUNTER 2022-03-24 07:07 | Outpatient (REF) | payer OTHER, SELFPAY ==
[2022-03-24 09:51] LABS: Cortisol Random 3.8 ug/dL
[2022-03-25 15:56] LABS: Adrenocorticotropic Hormone 49 pg/mL (6-50)
[2022-03-25 22:56] LABS: DHEA Sulfate 85 mcg/dL (9-118)
[2022-03-31 13:25] LABS: Dexamethasone 369 ng/dL
== END 2022-03-24 07:08 | disposition home or self-care (01) ==
LOC: HO.LAB 07:07
PROVIDERS: PCP Family Medicine; Visit Provider Internal Medicine
DX: E27.0 Other adrenocortical overactivity (principal)
CPT/HCPCS: 36415; 80299; 82024; 82533; 82627

== ENCOUNTER → 2022-04-19 10:01 | Outpatient (BNVA) | payer OTHER, SELFPAY | PROVIDERS: PCP Family Medicine; Visit Provider Internal Medicine | DX: D35.2 Benign neoplasm of pituitary gland (principal); E27.0 Other adrenocortical overactivity | CPT/HCPCS: Q3014 ==

== ENCOUNTER 2022-04-22 13:42 | Emergency (ER) | payer OTHER, SELFPAY ==
--- NOTE | ~2022-04-22 | CT_ITS ---
EXAMINATION: CT HEAD WITHOUT CONTRAST CLINICAL INFORMATION: History of pituitary tumor. Blurry vision. COMPARISON: Head CT from 09/17/2021 and brain MRI from 03/04/2022. TECHNIQUE: Contiguous axial imaging was performed from the skull base to vertex without intravenous administration of contrast. This CT examination was performed using dose optimization techniques as appropriate, variously including the following: *Automated exposure control *Adjustment of mA and/or kV according to patient size (this includes techniques or standardized protocols for targeted exams where dose is matched to indication/reason for exam; i.e. extremities or head) *Use of iterative reconstruction technique DLP: 596 mGy-cm FINDINGS: No intracranial hemorrhage, extra-axial fluid collection, focal mass effect or midline shift. Again noted is the mass occupying the sella turcica and eroding the floor of the sella and posterior sphenoid sinus wall. There is either extension of lesion into the sphenoid sinus or layering mucus along the posterior wall of the sinus. The pituitary lesion remains decreased in size compared to 09/16/2021. No acute hemorrhage within the previously identified macroadenoma. The brain parenchyma has normal attenuation with well-preserved frazier-white matter differentiation. An old punctate calcification is present within the delbert. The cerebellum is unremarkable. The mastoid air cells are well aerated. The temporomandibular joints are normal. The orbits and globes are normal. No air-fluid levels within paranasal sinuses. CT/CT head/brain wo con IMPRESSION: No evidence of hemorrhage within the macroadenoma which chronically erodes the floor of the sella turcica and posterior wall of sphenoid sinus. No acute intracranial pathology compared to the recent brain MRI from 03/04/2022.
[2022-04-22 14:06] VITALS: BP 130/59; PULSE 62; RESP 18; TEMP 36.8; O2SAT 99; BMI 40.0
--- NOTE | 2022-04-22 14:45 | ED_ITS ---
HPI - Neuro Symptoms/Deficit General Chief Complaint: Neuro Symptoms/Deficit Stated Complaint: losing vision in L eye Time Seen by Provider: 04/22/22 14:40 Source: patient and old records reviewed Mode of arrival: ambulatory Limitations: no limitations History of Present Illness HPI Narrative: 61-year-old female right handed patient was history of hypertension, patient had pituitary macro adenoma with apoplexy that caused it visual change for the past 7 months, patient been complaining of left eye blurriness, diplopia, patient was seen and evaluated by synchronizer at [facility], patient also is seeing a neuros urgeon has an appointment with neurosurgery this coming Tuesday. Patient came in today for increased blurriness of vision in the left eye over the past 4 days. No headache, no nausea, no vomiting. Patient declined any weakness or numbness. Patient had previous admission to our hospital and was then transferred to [facility], for ophthalmology and neurosurgery consultation. Related Data Home Medications Medication Instructions Recorded Confirmed albuterol sulfate 90 mcg/actuation 2 puff inhalation Q4H PRN 09/09/20 03/22/22 aerosol inhaler Shortness Of Breath amlodipine 10 mg tablet 10 mg PO DAILY 09/09/20 03/22/22 sennosides 8.6 mg tablet 17.2 mg PO DAILY 09/09/20 03/22/22 amitriptyline 10 mg tablet 10 mg PO BEDTIME 06/01/21 03/22/22 lisinopril 30 mg tablet 30 mg PO DAILY 06/01/21 03/22/22 naloxone 4 mg/actuation nasal 1 spray intranasal ONCE PRN Drug 06/01/21 03/22/22 spray (Narcan) Intoxication Symptoms nystatin 100,000 unit/gram topical 1 appl topical ONCE PRN Rash 06/01/21 03/22/22 powder vit C 250 mg-vit E 90 mg-zinc 40 1 cap PO DAILY 06/01/21 03/22/22 mg-copper 1 [id number] capsule (PreserVision AREDS-2) fluticasone propionate 50 2 spray intranasal DAILY 09/16/21 03/22/22 mcg/actuation nasal spray,suspension loratadine 10 mg tablet 1 tab PO DAILY 09/16/21 03/22/22 methocarbamol 750 mg tablet 1 tab PO BID PRN muscle spasm 09/16/21 03/22/22 oxybutynin chloride 10 mg 1 tab PO DAILY 09/16/21 03/22/22 tablet,extended release 24 hr oxycodone 5 mg tablet 5 mg PO Q8H PRN Pain, Moderate 09/16/21 03/22/22 (Pain Scale 4-6 Previous Rx's Medication Instructions Recorded acetaminophen 325 mg tablet 650 mg PO Q6H PRN Pain, Mild (Pain 09/11/21 Scale 1-3) 30 days #240 tabs celecoxib 200 mg capsule 200 mg PO BID 30 days #60 caps 09/11/21 docusate sodium 100 mg capsule 100 mg PO BID 30 days #60 caps 09/11/21 hydralazine 25 mg tablet 25 mg PO TID 1 day #3 tabs 09/18/21 prednisone 5 mg tablet 5 mg PO DAILY 30 days #30 tabs 12/03/21 hydrocortisone sod succ (PF) 100 100 mg (2 mL) IM ONCE PRN Adrenal 02/08/22 mg/2 mL solution for injection Insufficiency, unable to take oral (Solu-Cortef Act-O-Vial (PF)) medicat 30 days #1 ea prednisone 1 mg tablet 4 mg PO DAILY 30 days #120 tabs 04/22/22 Allergies Allergy/AdvReac Type Severity Reaction Status Date / Time BANDAIDS Allergy Intermediate BLISTERS Uncoded 04/22/22 14:06 STERI-STRIPS Allergy Intermediate BLISTERS Uncoded 04/22/22 14:06 Review of Systems Review of Systems: All other systems are reviewed and are negative Constitutional: Reports as per HPI and Reports no additional constitutional complaints Eyes: Reports as per HPI and Reports no additional eye complaints Reports system reviewed and no additional complaints, except as documented Cardiovascular: Reports as per HPI and Reports no additional cardiovascular complaints Respiratory: Reports as per HPI and Reports no additional respiratory complaints Gastrointestinal: Reports as per HPI and Reports no additional gastrointestinal complaints Genitourinary: Reports no additional female genitourinary complaints Musculoskeletal: Reports no additional musculoskeletal complaints Skin/Breast: Reports system reviewed and no additional complaints, except as docu Psychiatric: Reports no additional psychiatric complaints Endocrine: Reports no additional endocrine complaints Hematologic/Lymphatic: Reports no additional hematologic/lymphatic complaints Allergic/Immunologic: Reports no additional allergic/immunologic complaints Reports system reviewed and no additional complaints, except as documented and Reports Abnormal speech present [facility] Past Medical History Medical History Adrenal insufficiency Arthritis Asthma Back pain Cancer COVID-19 vaccine series completed History of headache HTN (hypertension) Hx of radiation therapy Impingement syndrome of right shoulder Personal history of tuberculosis Pituitary macroadenoma Wears dentures Surgical History H/O colonoscopy History of lumpectomy of right breast History of revision of total knee arthroplasty History of sleeve gastrectomy Hx of dilation and curettage Hx of foot surgery Hx of hand surgery Hx of hysterectomy Hx of total knee replacement Status post arthroscopy of right knee Family History Family History Father No problems noted. Mother No problems noted. Social History Social History Household Members: Children Housing: House Are you a primary progressive care nurse to a significant other at home: No Do you presently have visiting nurse or other home services: Yes ([employer]) Alcohol intake: never Patient Tobacco Use Status: Never used Tobacco Use of substances other than those prescribed or required for medical reasons: No Advance Directives: Yes Advance Directives Information Provided: Yes Advance Directives on File: No service: No Current occupational status: disabled Current occupation: Right Handed Physical Exam Vital Signs: Vital Signs: Last Vital Signs Temp 97.8 F 04/22/22 14:51 Pulse 59 04/22/22 14:51 Resp 16 04/22/22 14:51 BP 142/66 H 04/22/22 14:51 Pulse Ox 98 04/22/22 14:51 O2 Del Method 04/22/22 14:51 BMI result Body Mass Index 40.0 Vital signs have been reviewed as appeared to be correct. Blood pressure normal. Heart rate normal. Respiration rate normal. Temperature normal. Oxygen saturation normal. Appearance: Alert. Oriented X3. No acute distress. Head: Normal external exam. Normocephalic. Atraumatic. No Hanks signs noted. No raccoon eyes noted Eyes: PERRLA. EOMI. Conjunctiva and sclera normal. Eyelids normal. ENT: TM's Normal. Pharynx normal. Uvula midline. Moist mucous membranes. No trismus noted. No drooling noted. No muffled voice noted. Neck: Normal inspection. Neck supple. FROM. No adenopathy. Thyroid Normal. No meningeal signs. No neck mass noted. CVS: Normal heart rate and rhythm. Heart sound normal. No murmurs noted. Pulses normal throughout. Respiratory: No respiratory distress. Painless inspiration. Breath sounds normal. No wheezes/rales/rhonchi noted. Chest nontender. No accessory muscle usage noted or decreased air movement noted. Abdomen: Soft and nontender. Bowel sounds normal in all 4 quadrants. No distention noted. No organomegaly noted. No visible injury noted. Back: No CVA tenderness. Full range of motion noted. Skin: Skin warm and dry. Normal skin color. Normal skin turgor. No rashes/lesions/lacerations noted. Extremities: No lower extremity edema. Extremities exhibit normal range of motion. Extremities nontender. Neuro: Oriented X 3. Cranial nerve exam: II-XII are grossly intact No motor deficit. No sensory deficit. Reflexes normal. Eyes: Other: Visual acuity right 20/30, left 20/70. IOP left 14, right 9. General: appearance normal, both eyes and all related structures Alignment and Position: alignment normal Periorbital: periorbital findings normal Eyelids: Yes eyelids normal Conjunctivae: conjunctivae normal Sclerae: sclerae normal Corneas: corneas normal Pup ils: Equal, round and reactive pupils present, Pupils normal by confrontation and Pupil accommodation reflex normal EOM: EOMs intact bilaterally Neuro: Cranial nerves: Yes Equal, round and reactive pupils present Course Course Course Narrative: 61 years old female with pituitary macroadenoma that has been followed by wringer operator, synchronizer, and neurosurgeon, patient been having chronic symptoms of headache and visual blurriness, according to the old chart 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 Extraocular muscle are intact, no obvious cranial nerve palsy. Previous MRI showed decrease of the tumor in size. Patient was instructed to follow-up with her neurosurgeon next week but return if any worsening of symptoms. MDM - Neuro Symptoms/Deficit Imaging Data CT scan - head: Attestation: I personally reviewed and interpreted this imaging study as follows: Radiologist's impression: No evidence of hemorrhage within the macroadenoma which chronically erodes the floor of the sella turcica and posterior wall of sphenoid sinus. ?No acute intracranial pathology compared to the recent brain MRI from 03/04/2022. Discharge Plan Discharge Clinical Impression: Pituitary mass Patient Disposition: Home, Self-Care Instructions: Pituitary Adenoma (ED) Additional Instructions: Keep your neurosurgery appointment next week. Prescriptions: No Action prednisone 5 mg tablet 5 mg PO DAILY 30 Days Qty: 30 5RF prednisone 1 mg tablet 4 mg PO DAILY 30 Days Qty: 120 6RF Rx Instructions: Take 4 mg by mouth daily for 1 month, and then decrease to 3 mg daily for 1 month, then decrease to 2 mg daily for one month, then decrease to 1 mg daily acetaminophen 325 mg Tablet 650 mg PO Q6H PRN (Reason: Pain, Mild (Pain Scale 1-3)) 30 Days Qty: 240 0RF celecoxib 200 mg Capsule 200 mg PO BID 30 Days Qty: 60 0RF docusate sodium 100 mg Capsule 100 mg PO BID 30 Days Qty: 60 0RF oxybutynin chloride 10 mg tablet extended release 24hr 1 tab PO DAILY methocarbamol 750 mg tablet 1 tab PO BID PRN (Reason: muscle spasm) fluticasone propionate 50 mcg/actuation spray,suspension 2 spray intranasal DAILY loratadine 10 mg tablet 1 tab PO DAILY oxycodone 5 mg tablet 5 mg PO Q8H PRN (Reason: Pain, Moderate (Pain Scale 4-6) hydralazine 25 mg Tablet 25 mg PO TID 1 Days Qty: 3 0RF Protocol: Hold for SBP< HOLD for SBP < : 90 PreserVision AREDS-2 250-90-40-1 mg capsule 1 cap PO DAILY lisinopril 30 mg tablet 30 mg PO DAILY amitriptyline 10 mg tablet 10 mg PO BEDTIME nystatin 100,000 unit/gram powder 1 appl topical ONCE PRN (Reason: Rash) Narcan 4 mg/actuation spray,non-aerosol 1 spray intranasal ONCE PRN (Reason: Drug Intoxication Symptoms) albuterol sulfate 90 mcg/actuation HFA aerosol inhaler 2 puff inhalation Q4H PRN (Reason: Shortness Of Breath) amlodipine 10 mg tablet 10 mg PO DAILY sennosides 8.6 mg tablet 17.2 mg PO DAILY Solu-Cortef Act-O-Vial (PF) 100 mg/2 mL recon soln 100 mg IM ONCE PRN (Reason: Adrenal Insufficiency, unable to take oral medicat) 30 Days Qty: 1 3RF Referrals: Anushka Figueredo DO [Primary Care Provider] -
[2022-04-22 14:51] VITALS: BP 142/66; PULSE 59; RESP 16; TEMP 36.6; O2SAT 98
== END 2022-04-22 18:26 | disposition home or self-care (01) ==
PROVIDERS: Emergency Provider Emergency Medicine; PCP Family Medicine
DX: E23.6 Other disorders of pituitary gland (principal); H53.8 Other visual disturbances; E27.40 Unspecified adrenocortical insufficiency; D35.2 Benign neoplasm of pituitary gland; Z79.899 Other long term (current) drug therapy
CPT/HCPCS: 70450; 99284

== ENCOUNTER 2022-06-18 07:40 | Outpatient (REF) | payer OTHER, SELFPAY ==
[2022-06-18 08:26] LABS: Alanine Aminotransferase 17 U/L (0-31); Albumin Level 3.8 g/dL (3.5-5.0); Alkaline Phosphatase 63 U/L (39-117); Anion Gap 15 (12-20); Aspartate Amino Transferase 23 U/L (5-31); Bilirubin Total 0.4 mg/dL (0.0-1.0); Blood Urea Nitrogen 18 mg/dL (9-16); Calcium 9.3 mg/dL (8.4-10.2); Carbon Dioxide 24 mmol/L (22-29); Chloride 107 mmol/L (96-108); Estimated Glomerular Filt Rate > 60; Glucose Random 87 mg/dL (60-115); Potassium 4.2 mmol/L (3.3-5.1); Sodium 142 mmol/L (135-145); Total Protein 6.7 g/dL (6.5-8.0)
[2022-06-18 08:38] LABS: Cortisol Random 11.3 ug/dL
[2022-06-20 18:46] LABS: DHEA Sulfate 101 mcg/dL (9-118)
[2022-06-21 21:57] LABS: Adrenocorticotropic Hormone 48 pg/mL (6-50)
== END 2022-06-18 07:41 | disposition home or self-care (01) ==
LOC: HO.LAB 07:40
PROVIDERS: PCP Family Medicine; Visit Provider Internal Medicine
DX: D35.2 Benign neoplasm of pituitary gland (principal); E27.40 Unspecified adrenocortical insufficiency
CPT/HCPCS: 36415; 80053; 82024; 82533; 82627

== ENCOUNTER → 2022-06-21 10:31 | Outpatient (BNVA) | payer OTHER, SELFPAY | PROVIDERS: PCP Family Medicine; Visit Provider Internal Medicine | DX: D35.2 Benign neoplasm of pituitary gland (principal); E27.0 Other adrenocortical overactivity | CPT/HCPCS: Q3014 ==

== ENCOUNTER 2022-07-16 09:09 | Outpatient (REF) | payer OTHER, SELFPAY ==
[2022-07-16 10:23] LABS: Anion Gap 14 (12-20); Blood Urea Nitrogen 17 mg/dL (9-16); Calcium 9.3 mg/dL (8.4-10.2); Carbon Dioxide 27 mmol/L (22-29); Chloride 104 mmol/L (96-108); Estimated Glomerular Filt Rate > 60; Glucose Random 92 mg/dL (60-115); Potassium 4.2 mmol/L (3.3-5.1); Sodium 141 mmol/L (135-145)
[2022-07-16 11:38] LABS: Cortisol Random 5.3 ug/dL
[2022-07-19 20:32] LABS: Adrenocorticotropic Hormone 38 pg/mL (6-50)
== END 2022-07-16 09:10 | disposition home or self-care (01) ==
LOC: HO.LAB 09:09
PROVIDERS: PCP Family Medicine; Visit Provider Internal Medicine
DX: E27.40 Unspecified adrenocortical insufficiency (principal)
CPT/HCPCS: 36415; 80048; 82024; 82533

== ENCOUNTER → 2022-07-26 07:35 | Outpatient (BNVA) | payer OTHER, SELFPAY | PROVIDERS: PCP Family Medicine; Visit Provider Internal Medicine | DX: D35.2 Benign neoplasm of pituitary gland (principal); E27.0 Other adrenocortical overactivity | CPT/HCPCS: Q3014 ==

== ENCOUNTER 2022-08-03 07:15 | Outpatient (REF) | payer OTHER, SELFPAY ==
[2022-08-03 09:19] LABS: Anion Gap 13 (12-20); Blood Urea Nitrogen 14 mg/dL (9-16); Calcium 9.3 mg/dL (8.4-10.2); Carbon Dioxide 28 mmol/L (22-29); Chloride 104 mmol/L (96-108); Estimated Glomerular Filt Rate > 60; Glucose Random 88 mg/dL (60-115); Potassium 4.2 mmol/L (3.3-5.1); Sodium 141 mmol/L (135-145)
[2022-08-03 11:08] LABS: Cortisol Random 12.2 ug/dL
[2022-08-04 09:02] LABS: DHEA Sulfate 93 mcg/dL (9-118)
[2022-08-04 16:17] LABS: Adrenocorticotropic Hormone 72 pg/mL (6-50)
== END 2022-08-03 07:16 | disposition home or self-care (01) ==
LOC: HO.LAB 07:15
PROVIDERS: PCP Family Medicine; Visit Provider Internal Medicine
DX: E27.0 Other adrenocortical overactivity (principal)
CPT/HCPCS: 36415; 80048; 82024; 82533; 82627

== ENCOUNTER 2022-08-05 16:07 | Emergency (ER) | payer OTHER, SELFPAY ==
--- NOTE | ~2022-08-05 | MR_ITS ---
EXAMINATION: MR BRAIN WITHOUT AND WITH CONTRAST CLINICAL INFORMATION: Known pituitary mass. Worsening headache. COMPARISON: Brain MRI 03/04/2022. TECHNIQUE: Multiplanar, multisequence imaging of the brain was performed before and after the intravenous administration of Gadavist. FINDINGS: There is redemonstration of a mildly enhancing mass centered within the right aspect of the sella extending into the right cavernous sinus and through the anterior sellar wall into the posterior aspect of the right more than left sphenoid sinus. The lesion maximally measures up to 2.4 cm in maximal AP dimension which is unchanged compared with 03/04/2022. The lesion does not compress the optic apparatus. 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 The infundibulum is normal thickness and morphology and inserts to the left of midline. There is some degree of invasion of the superior aspect of the clivus. There is no acute infarction, hemorrhage, or extra-axial fluid collection. There is no brain parenchymal mass or abnormal intracranial enhancement. The ventricles are normal in size without hydrocephalus. A few minimal nonspecific foci of T2/FLAIR hyperintensity seen within the white matter. The major arterial flow voids are preserved the skull base. The orbital contents appear normal. Mild paranasal sinus mucosal thickening. MR/MR head/brain wo/w con IMPRESSION: Redemonstration of mildly enhancing mass centered within the right aspect of the sella extending into the right cavernous sinus and through the anterior sellar wall into the posterior aspect of the right more than left sphenoid sinus. The lesion measures up to 2.4 cm in maximal AP dimension and is unchanged compared with 03/04/2022. No mass effect on the optic apparatus. No acute intracranial abnormality.
[2022-08-05 16:28] VITALS: BP 128/59; PULSE 76; RESP 18; TEMP 37.2; O2SAT 99; BMI 43.0
--- NOTE | 2022-08-05 16:53 | ED.GENADULT ---
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 The patient had been on prednisone but has been off of it for a week. She denies any nausea vomiting. She states she has some visual problems but was recently diagnosed with cataracts. She denies any acute visual change. She denies any acute balance problems. She denies any numbness or weakness in her arms or legs or face. She has had prior MRI. Related Data Home Medications Medication Instructions Recorded Confirmed albuterol sulfate 90 mcg/actuation 2 puff inhalation Q4H PRN 09/09/20 07/26/22 aerosol inhaler Shortness Of Breath amlodipine 10 mg tablet 10 mg PO DAILY 09/09/20 07/26/22 sennosides 8.6 mg tablet 17.2 mg PO DAILY 09/09/20 07/26/22 amitriptyline 10 mg tablet 10 mg PO BEDTIME 06/01/21 07/26/22 lisinopril 30 mg tablet 30 mg PO DAILY 06/01/21 07/26/22 naloxone 4 mg/actuation nasal 1 spray intranasal ONCE PRN Drug 06/01/21 07/26/22 spray (Narcan) Intoxication Symptoms nystatin 100,000 unit/gram topical 1 appl topical ONCE PRN Rash 06/01/21 07/26/22 powder vit C 250 mg-vit E 90 mg-zinc 40 1 cap PO DAILY 06/01/21 07/26/22 mg-copper 1 [id number] capsule (PreserVision AREDS-2) fluticasone propionate 50 2 spray intranasal DAILY 09/16/21 07/26/22 mcg/actuation nasal spray,suspension loratadine 10 mg tablet 1 tab PO DAILY 09/16/21 07/26/22 methocarbamol 750 mg tablet 1 tab PO BID PRN muscle spasm 09/16/21 07/26/22 oxybutynin chloride 10 mg 1 tab PO DAILY 09/16/21 07/26/22 tablet,extended release 24 hr oxycodone 5 mg tablet 5 mg PO Q8H PRN Pain, Moderate 09/16/21 07/26/22 (Pain Scale 4-6 prednisone 1 mg tablet 1 mg PO DAILY 07/26/22 07/26/22 Previous Rx's Medication Instructions Recorded acetaminophen 325 mg tablet 650 mg PO Q6H PRN Pain, Mild (Pain 09/11/21 Scale 1-3) 30 days #240 tabs celecoxib 200 mg capsule 200 mg PO BID 30 days #60 caps 09/11/21 docusate sodium 100 mg capsule 100 mg PO BID 30 days #60 caps 09/11/21 hydralazine 25 mg tablet 25 mg PO TID 1 day #3 tabs 09/18/21 prednisone 5 mg tablet 5 mg PO DAILY 30 days #30 tabs 12/03/21 hydrocortisone sod succ (PF) 100 100 mg (2 mL) IM ONCE PRN Adrenal 02/08/22 mg/2 mL solution for injection Insufficiency, unable to take oral (Solu-Cortef Act-O-Vial (PF)) medicat 30 days #1 ea dexamethasone 1 mg tablet 1 mg PO ONCE #1 tab 08/05/22 Allergies Allergy/AdvReac Type Severity Reaction Status Date / Time BANDAIDS Allergy Intermediate BLISTERS Uncoded 07/26/22 08:11 STERI-STRIPS Allergy Intermediate BLISTERS Uncoded 07/26/22 08:11 Review of Systems Review of Systems: Yes all other systems are reviewed and are negative Constitutional: Constitutional: Reports as per HPI, Denies fever(s) and Reports headache(s) Eyes: Eyes: Reports as per HPI, Reports no additional eye complaints and Reports blurry vision ENT: Reports system reviewed and no additional complaints, except as documented, Reports as per HPI, Reports headache(s), Denies nasal congestion, Denies nasal discharge and Denies sore throat Cardiovascular: Cardiovascular: Reports as per HPI, Denies chest pain and Denies dyspnea Respiratory: Respiratory: Reports as per HPI, Denies cough and Denies dyspnea Gastrointestinal: Gastrointestinal: Reports as per HPI, Denies abdominal pain, Denies diarrhea and Denies vomiting Genitourinary: Genitourinary: Reports as per HPI, Denies hematuria, Denies urinary frequency and Denies dysuria Musculoskeletal: Musculoskeletal: Reports no additional musculoskeletal complaints and Denies numbness Integumentary/Breasts: Skin/Breast: Reports as per HPI and Denies rash Neurologic: Reports as per HPI, Denies Abnormal speech present, Reports headache(s), Denies focal weakness and Denies numbness Psychiatric: Psychiatric: Reports no additional psychiatric complaints and Reports as per HPI Endocrine: Endocrine: Reports no additional endocrine complaints and Reports as per HPI Hematologic/Lymphatic: Hematologic/Lymphatic: Reports no additional hematologic/lymphatic complaints, Reports as per HPI and Reports other (No peripheral edema) [facility] Past Medical History Medical History Adrenal insufficiency Arthritis Asthma Back pain Cancer COVID-19 vaccine series completed History of headache HTN (hypertension) Hx of radiation therapy Impingement syndrome of right shoulder Personal history of tuberculosis Pituitary macroadenoma Wears dentures Surgical History H/O colonoscopy History of lumpectomy of right breast History of revision of total knee arthroplasty History of sleeve gastrectomy Hx of dilation and curettage Hx of foot surgery Hx of hand surgery Hx of hysterectomy Hx of total knee replacement Status post arthroscopy of right knee Family History Family History Father No problems noted. Mother No problems noted. Social History Social History Household Members: Children Housing: House Are you a primary career coordinator to a significant other at home: No Do you presently have visiting nurse or other home services: Yes (CERTIFIED NURSE MIDWIFE) Alcohol intake: never Patient Tobacco Use Status: Never used Tobacco Advance Directives: No Advance Directives Information Provided: No service: No Current occupational status: disabled Current occupation: Right Handed Physical Exam ED Vital Signs: Vital Signs - 24 hr 08/05/22 16:28 Temperature 98.9 F Pulse Rate 76 Respiratory Rate 18 Blood Pressure 128/59 L Pulse Oximetry 99 Oxygen Delivery Method Room Air BMI result Body Mass Index 43.0 Const General: no acute distress Orientation/consciousness: patient oriented x3 HENMT Head: Yes normal to inspection General nose exam: Normal external nose present Mouth: moist mucous membranes Throat: Yes posterior oropharynx normal, Yes tonsils normal and Yes uvula midline Eyes Eyelids: Yes eyelids normal Conjunctivae: conjunctivae normal Pupils: Equal, round and reactive pupils present Neck Neck: Yes supple Resp Effort & Inspection: normal respiratory effort Auscultation: clear to auscultation bilaterally Cardio Rate: regular rate Rhythm: regular rhythm Heart sounds: S1 normal heart sound present, S2 normal heart sound present, no gallops, no murmurs and no rubs GI Inspection: No distended Palpation (GI): Soft to palpation and nontender Auscultation: normal bowel sounds Skin General skin exam: other (Warm and dry) Neuro Other: Visual quevedo grossly normal. Some difficulty in the left side upper outer quadrant but is able t count fingers normally in the right eye in all visual quevedo. General: patient oriented x3 and CN's II-XI intact bilaterally Cranial nerves: Yes Equal, round and reactive pupils present Speech: No Abnormal speech present Extrem General: Yes no pedal edema Psych Affect: normal affect Attitude: cooperative Medical Decision Making [facility] Narrative Medical decision making narrative: Patient with a known pituitary tumor, complains of worsening headache, has recently been off of prednisone after weaning down the dose. MRI of the brain shows no change in the size of the tumor, no concerning findings. This was done by pituitary protocol. CBC and chemistry panel unremarkable. Patient does take oxycodone for her chronic pain but states that does not control her headache. Will recommend she increase oxycodone to 10 mg every 6 hours, follow up with her supervisor production managing Lab Data Lab results reviewed: Yes I reviewed the patient's lab results. Result diagrams: 08/05/22 17:36 08/05/22 17:36 Labs: Lab Results 08/05/22 08/05/22 Range/Units 17:36 17:36 WBC 6.8 (4.8-10.8) X10*3/uL RBC 4.38 (4.20-5.50) X10*6/uL Hgb 12.1 (12.0-16.0) g/dl Hct 39.9 (37.0-47.0) % MCV 91.1 (80.0-98.0) fL MCH 27.6 (27.0-33.0) pg MCHC 30.3 L (31.0-35.0) g/dl RDW 14.1 (11.0-16.0) % Plt Count 240 D (160-400) X10*3/uL MPV 9.9 (9.4-12.3) fL Immature Gran % (Auto) 0.3 (0.0-0.4) % Neut % (Auto) 70.4 (45-73) % Lymph % (Auto) 19.2 L (20-40) % [place] % (Auto) 8.2 (2-11) % Eos % (Auto) 1.5 (0-4) % Baso % (Auto) 0.4 (0-2) % Lymph # (Auto) 1.3 (1.2-4.9) X10*3/uL [place] # (Auto) 0.6 (0.1-1.2) X10*3/uL Eos # (Auto) 0.1 (0.0-0.4) X10*3/uL Baso # (Auto) 0.0 (0.0-0.2) X10*3/uL Abs Immat Gran (auto) 0.02 (0.00-0.03) X10*3/uL Absolute Neuts (auto) 4.8 (2.0-8.3) x10*3/uL Absolute Nucleated RBC 0.000 (0.0-0.012) X10*3/uL Nucleated RBC % (auto) 0.0 (0.0-0.2) /100WBC Sodium 140 (135-145) mmol/L Potassium 4.4 (3.3-5.1) mmol/L Chloride 109 H (96-108) mmol/L Carbon Dioxide 17 L (22-29) mmol/L Anion Gap 18 (12-20) BUN 17 H (9-16) mg/dL Creatinine 0.66 (0.5-1.4) mg/dL Estim Creat Clear Calc 96.5 Estimated GFR > 60 Random Glucose 99 (60-115) mg/dL Calcium 8.8 (8.4-10.2) mg/dL Imaging Data MRI - head: Radiologist's impression: IMPRESSION: Redemonstration of mildly enhancing mass centered within the right aspect of the sella extending into the right cavernous sinus and through the anterior sellar wall into the posterior aspect of the right more than left sphenoid sinus. The lesion measures up to 2.4 cm in maximal AP dimension and is unchanged compared with 03/04/2022. No mass effect on the optic apparatus. No acute intracranial abnormality. Discharge Plan Discharge Clinical Impression: Headache, Pituitary mass Patient Disposition: Home, Self-Care Instructions: General Headache (ED) Additional Instructions: Use acetaminophen, and oxycodone for pain. Try increasing your oxycodone dose to 10 mg every 6 hours. Follow up with her supervisor production managing tomorrow. Your MRI showed no change in your pituitary tumor since March. Prescriptions: No Action prednisone 5 mg tablet 5 mg PO DAILY 30 Days Qty: 30 5RF dexamethasone 1 mg tablet 1 mg PO ONCE Qty: 1 0RF acetaminophen 325 mg Tablet 650 mg PO Q6H PRN (Reason: Pain, Mild (Pain Scale 1-3)) 30 Days Qty: 240 0RF celecoxib 200 mg Capsule 200 mg PO BID 30 Days Qty: 60 0RF docusate sodium 100 mg Capsule 100 mg PO BID 30 Days Qty: 60 0RF oxybutynin chloride 10 mg tablet extended release 24hr 1 tab PO DAILY methocarbamol 750 mg tablet 1 tab PO BID PRN (Reason: muscle spasm) fluticasone propionate 50 mcg/actuation spray,suspension 2 spray intranasal DAILY loratadine 10 mg tablet 1 tab PO DAILY oxycodone 5 mg tablet 5 mg PO Q8H PRN (Reason: Pain, Moderate (Pain Scale 4-6) hydralazine 25 mg Tablet 25 mg PO TID 1 Days Qty: 3 0RF Protocol: Hold for SBP< HOLD for SBP < : 90 PreserVision AREDS-2 250-90-40-1 mg capsule 1 cap PO DAILY lisinopril 30 mg tablet 30 mg PO DAILY amitriptyline 10 mg tablet 10 mg PO BEDTIME nystatin 100,000 unit/gram powder 1 appl topical ONCE PRN (Reason: Rash) Narcan 4 mg/actuation spray,non-aerosol 1 spray intranasal ONCE PRN (Reason: Drug Intoxication Symptoms) albuterol sulfate 90 mcg/actuation HFA aerosol inhaler 2 puff inhalation Q4H PRN (Reason: Shortness Of Breath) amlodipine 10 mg tablet 10 mg PO DAILY sennosides 8.6 mg tablet 17.2 mg PO DAILY Solu-Cortef Act-O-Vial (PF) 100 mg/2 mL recon soln 100 mg IM ONCE PRN (Reason: Adrenal Insufficiency, unable to take oral medicat) 30 Days Qty: 1 3RF prednisone 1 mg tablet 1 mg PO DAILY Interventions: ED Discharge Assessment Last Done: 08/05/22 20:43 Discharge Date/Time: 08/05/22 20:45
[2022-08-05 17:39] LABS: MANUAL DIFF FLAG NO
[2022-08-05 17:42] LABS: Basophils Percent Auto 0.4 % (0-2); Eosinophils Absolute Auto 0.1 X10*3/uL (0.0-0.4); Eosinophils Percent Auto 1.5 % (0-4); Hematocrit 39.9 % (37.0-47.0); Hemoglobin 12.1 g/dl (12.0-16.0); Imm Gran Abs Auto 0.02 X10*3/uL (0.00-0.03); Imm Gran Pct Auto 0.3 % (0.0-0.4); Lymphocytes Absolute Auto 1.3 X10*3/uL (1.2-4.9); Lymphocytes Percent Auto 19.2 % (20-40); Mean Corpuscular HGB Conc 30.3 g/dl (31.0-35.0); Mean Corpuscular Hemoglobin 27.6 pg (27.0-33.0); Mean Corpuscular Volume 91.1 fL (80.0-98.0); Mean Platelet Volume 9.9 fL (9.4-12.3); Monocytes Absolute Auto 0.6 X10*3/uL (0.1-1.2); Monocytes Percent Auto 8.2 % (2-11); Neutrophils Absolute Auto 4.8 x10*3/uL (2.0-8.3); Neutrophils Percent Auto 70.4 % (45-73); Platelet Count 240 X10*3/uL (160-400); Red Blood Count 4.38 X10*6/uL (4.20-5.50); Red Cell Distribution Width 14.1 % (11.0-16.0); White Blood Count 6.8 X10*3/uL (4.8-10.8)
[2022-08-05 18:14] LABS: Anion Gap 18 (12-20); Blood Urea Nitrogen 17 mg/dL (9-16); Calcium 8.8 mg/dL (8.4-10.2); Carbon Dioxide 17 mmol/L (22-29); Chloride 109 mmol/L (96-108); Creatinine Clr Calc Pharmacy 96.5; Estimated Glomerular Filt Rate > 60; Glucose Random 99 mg/dL (60-115); Potassium 4.4 mmol/L (3.3-5.1); Sodium 140 mmol/L (135-145)
[2022-08-05] MEDS: oxyCODONE HCl Immed Release 5 MG TABLET 10 MG PO (20:37)
== END 2022-08-05 20:45 | disposition home or self-care (01) ==
PROVIDERS: Emergency Medicine; Emergency Provider Emergency Medicine; PCP Family Medicine
DX: R51.9 Headache, unspecified (principal); D35.2 Benign neoplasm of pituitary gland; I10 Essential (primary) hypertension; G89.4 Chronic pain syndrome; Z79.891 Long term (current) use of opiate analgesic; Z98.84 Bariatric surgery status
CPT/HCPCS: 36415; 70553; 80048; 85025; 96374; 99283; 99285; A9585

== ENCOUNTER 2022-08-06 07:24 | Outpatient (REF) | payer OTHER, SELFPAY ==
[2022-08-06 09:31] LABS: Anion Gap 17 (12-20); Blood Urea Nitrogen 14 mg/dL (9-16); Carbon Dioxide 24 mmol/L (22-29); Chloride 105 mmol/L (96-108); Estimated Glomerular Filt Rate > 60; Glucose Random 90 mg/dL (60-115); Potassium 4.6 mmol/L (3.3-5.1); Sodium 141 mmol/L (135-145)
[2022-08-06 09:55] LABS: Cortisol Random 1.8 ug/dL
[2022-08-10 14:47] LABS: Adrenocorticotropic Hormone 41 pg/mL (6-50)
[2022-08-17 17:33] LABS: Dexamethasone 327 ng/dL
== END 2022-08-06 07:25 | disposition home or self-care (01) ==
LOC: HO.LAB 07:24
PROVIDERS: PCP Family Medicine; Visit Provider Internal Medicine
DX: E27.0 Other adrenocortical overactivity (principal)
CPT/HCPCS: 36415; 80048; 80299; 82024; 82533

== ENCOUNTER 2022-08-10 08:00 | Outpatient (REF) | payer OTHER, SELFPAY ==
[2022-08-19 21:17] LABS: Saliva Cortisol 0.21 mcg/dL
[2022-08-19 21:17] LABS: Saliva Cortisol 0.04 mcg/dL
[2022-08-19 21:17] LABS: Saliva Cortisol 0.04 mcg/dL
[2022-08-19 21:17] LABS: Saliva Cortisol 0.05 mcg/dL
[2022-08-19 21:17] LABS: Saliva Cortisol 0.08 mcg/dL
[2022-08-19 21:17] LABS: Saliva Cortisol 0.12 mcg/dL
== END 2022-08-10 08:01 | disposition home or self-care (01) ==
LOC: HO.LNP 08:00
PROVIDERS: Visit Provider Internal Medicine
DX: E27.0 Other adrenocortical overactivity (principal)
CPT/HCPCS: 82530

== ENCOUNTER → 2022-08-19 13:07 | Outpatient (BNVA) | payer OTHER, SELFPAY | PROVIDERS: PCP Family Medicine; Visit Provider Internal Medicine | DX: D35.2 Benign neoplasm of pituitary gland (principal); E04.9 Nontoxic goiter, unspecified; E27.0 Other adrenocortical overactivity | CPT/HCPCS: Q3014 ==

== ENCOUNTER 2022-09-09 14:04 | Outpatient (REF) | payer OTHER, SELFPAY ==
--- NOTE | ~2022-09-09 | US_ITS ---
EXAMINATION: US THYROID CLINICAL INFORMATION: Nontoxic goiter, unspecified. COMPARISON: None TECHNIQUE: Linear transducer grayscale and color Doppler examination with attention to the region of the thyroid. FINDINGS: SIZE: Measurements of the thyroid lobes and nodules are given in sagittal, anteroposterior and transverse dimensions respectively. Right Thyroid Lobe: 4.54 x 1.79 x 1.70 cm, volume 7.25 mL. Parenchyma: The gland echotexture is homogeneous. Thyroid vascularity is normal. Left Thyroid Lobe: 5.14 x 2.19 x 1.47 cm, volume 8.64 mL. Parenchyma: The gland echotexture is homogeneous. Thyroid vascularity is normal. Isthmus: 0.38 cm in maximum AP dimension. Estimated total number of nodules greater than or equal to 1 cm: 0. Banquet Steward nodules are described as follows: 1. Location: Right mid. Size: 0.30 x 0.30 x 0.32 cm, volume 0.02 mL. Nodule characteristics: Composition: Cystic(0). ACR TI-RADS total points: 0 ACR TI-RADS category: 1 2. Location: Right inferior. Size: 0.30 x 0.26 x 0.21 cm, volume 0.008 mL. Nodule characteristics: Composition: Cystic(0). ACR TI-RADS total points: 0 ACR TI-RADS category: 1 3. Location: Right inferior. Size: 0.22 x 0.26 x 0.23 cm, volume 0.007 mL. Nodule characteristics: Composition: Cystic(0). ACR TI-RADS total points: 0 ACR TI-RADS category: 1 4. Location: Left inferior. Size: 0.34 x 0.30 x 0.45 cm, volume 0.02 mL. Nodule characteristics: Composition: Cystic(0). ACR TI-RADS total points: 0 ACR TI-RADS category: 1 NODES: No lymphadenopathy is seen in the tissue surrounding the thyroid gland. US/US thyroid IMPRESSION: Slightly enlarged thyroid gland with multiple nonsuspicious thyroid nodules. ACR TI-RADS RECOMMENDATION REFERENCE: Ultrasound-guided fine-needle aspiration, followup ultrasound, no further follow up. * TR1 (0 point) and TR 2 (2 points): No FNA or follow up. * TR3 (3 points): FNA if more than or equal to 2.5 cm in maximum dimension, followup ultrasound in 1, 3 and 5 years if 1.5 to 2.4 cm in maximum dimension. * TR4 (4-6 points): FNA if more than or equal to 1.5 cm in maximum dimension, followup ultrasound in 1, 2, 3 and 5 years if 1 to 1.4 cm in maximum dimension. * TR5 (more than or equal to 7 points): FNA if more than or equal to 1 cm in maximum dimension, followup ultrasound every year for 5 years if 0.5 to 0.9 cm in maximum dimension. * TR3, TR4 or TR5 nodules that are below the size threshold for followup receive no follow up.
== END 2022-09-09 14:05 | disposition home or self-care (01) ==
LOC: HO.HMGCX 14:04
PROVIDERS: PCP Family Medicine; Visit Provider Internal Medicine
DX: E04.9 Nontoxic goiter, unspecified (principal)
CPT/HCPCS: 76536

== ENCOUNTER 2022-11-12 09:16 | Outpatient (REF) | payer OTHER, SELFPAY | END 2022-11-12 09:17 | disposition home or self-care (01) | LOC: HO.LAB 09:16 | PROVIDERS: PCP Family Medicine; Visit Provider Internal Medicine | DX: Z13.89 Encounter for screening for other disorder (principal) ==

== ENCOUNTER 2022-11-15 08:39 | Outpatient (REF) | payer OTHER, SELFPAY ==
[2022-11-15 10:27] LABS: Cortisol Random 9.6 ug/dL
[2022-11-15 10:29] LABS: Anion Gap 15 (12-20); Blood Urea Nitrogen 13 mg/dL (9-16); Calcium 9.4 mg/dL (8.4-10.2); Carbon Dioxide 25 mmol/L (22-29); Chloride 105 mmol/L (96-108); Estimated Glomerular Filt Rate > 60; Free T4 (Free Thyroxine) 1.05 ng/dL (0.71-1.85); Glucose Random 88 mg/dL (60-115); Potassium 4.7 mmol/L (3.3-5.1); Sodium 140 mmol/L (135-145); Thyroid Stimulating Hormone 1.17 uIU/mL (0.32-4.0)
[2022-11-15 10:30] LABS: Osmolality, Serum 290 mosm/kg (281-305)
[2022-11-16 07:52] LABS: Sex Hormone Binding Globulin 80 nmol/L (14-73); Triiodothyronine T3 Total 178 ng/dL (76-181)
[2022-11-16 08:03] LABS: Prolactin 6.6 ng/mL
[2022-11-16 18:24] LABS: Follicle Stimulating Hormone 34.6 mIU/mL; Lutenizing Hormone 16.7 mIU/mL; Prolactin Undiluted 6.1 ng/mL
[2022-11-19 04:54] LABS: Adrenocorticotropic Hormone 44 pg/mL (6-50)
[2022-11-20 18:09] LABS: IGF-1 (Somatomedin C) 64 ng/mL (41-279); IGF-1 Z Score (Female) -1.2 SD (-2.0 - +2.0)
== END 2022-11-15 08:40 | disposition home or self-care (01) ==
LOC: HO.LAB 08:39
PROVIDERS: Internal Medicine; PCP Family Medicine; Visit Provider Internal Medicine
DX: D35.2 Benign neoplasm of pituitary gland (principal)
CPT/HCPCS: 36415; 80048; 82024; 82533; 83001; 83002; 83930; 84146; 84270; 84305; 84439; 84443; 84480

== ENCOUNTER 2022-11-16 13:03 | Outpatient (REF) | payer OTHER, SELFPAY ==
[2022-11-24 08:59] LABS: Cortisol Free, 24 Hr Urine 36.9 mcg/24 h (4.0-50.0); Creatinine, 24 Hr Urine 1.04 g/24 h (0.50-2.15); Total Volume, 24 Hr Urine 1850 mL
== END 2022-11-16 13:04 | disposition home or self-care (01) ==
LOC: HO.LNP 13:03
PROVIDERS: Visit Provider Internal Medicine
DX: D35.2 Benign neoplasm of pituitary gland (principal)
CPT/HCPCS: 82530

== ENCOUNTER → 2022-12-20 07:36 | Outpatient (BNVA) | payer OTHER, SELFPAY | PROVIDERS: PCP Family Medicine; Visit Provider Internal Medicine | DX: D35.2 Benign neoplasm of pituitary gland (principal); E27.0 Other adrenocortical overactivity; E04.9 Nontoxic goiter, unspecified | CPT/HCPCS: 99212 ==

== ENCOUNTER 2023-01-16 09:42 | Outpatient (REF) | payer OTHER, SELFPAY | END 2023-01-16 09:43 | disposition home or self-care (01) | LOC: HO.LNP 09:42 | PROVIDERS: Visit Provider Internal Medicine | DX: Z13.89 Encounter for screening for other disorder (principal) | CPT/HCPCS: 82530 ==

== ENCOUNTER 2023-03-11 08:42 | Outpatient (REF) | payer OTHER, SELFPAY ==
[2023-03-11 10:22] LABS: Alanine Aminotransferase 15 U/L (0-31); Albumin Level 3.8 g/dL (3.5-5.0); Alkaline Phosphatase 72 U/L (39-117); Aspartate Amino Transferase 22 U/L (5-31); Bilirubin Direct 0.2 mg/dL (0.0-0.5); Bilirubin Total 0.5 mg/dL (0.0-1.0); Total Protein 6.8 g/dL (6.5-8.0)
== END 2023-03-11 08:43 | disposition home or self-care (01) ==
LOC: HO.LAB 08:42
PROVIDERS: PCP Family Medicine; Visit Provider Podiatrist Foot Surgery
DX: B35.1 Tinea unguium (principal); B35.3 Tinea pedis
CPT/HCPCS: 36415; 80076

== ENCOUNTER 2023-03-14 06:41 | Outpatient (REF) | payer OTHER, SELFPAY ==
[2023-03-14 07:25] LABS: Anion Gap 11 (12-20); Blood Urea Nitrogen 20 mg/dL (9-16); Calcium 9.4 mg/dL (8.4-10.2); Carbon Dioxide 27 mmol/L (22-29); Chloride 108 mmol/L (96-108); Estimated Glomerular Filt Rate > 60; Glucose Random 90 mg/dL (60-115); Potassium 4.2 mmol/L (3.3-5.1); Sodium 142 mmol/L (135-145)
[2023-03-14 07:29] LABS: Osmolality, Serum 299 mosm/kg (281-305)
[2023-03-14 07:43] LABS: Free T4 (Free Thyroxine) 1.24 ng/dL (0.71-1.85)
[2023-03-14 08:00] LABS: Cortisol Random 17.9 ug/dL
[2023-03-16 12:08] LABS: Triiodothyronine T3 Total 160 ng/dL (76-181)
[2023-03-16 13:03] LABS: Follicle Stimulating Hormone 40.6 mIU/mL; Lutenizing Hormone 19.4 mIU/mL; Prolactin Undiluted 8.4 ng/mL
[2023-03-16 21:23] LABS: Sex Hormone Binding Globulin 77 nmol/L (14-73)
[2023-03-19 15:04] LABS: Adrenocorticotropic Hormone 93 pg/mL (6-50)
[2023-03-21 00:34] LABS: Estradiol Ultra Sensitive 15 pg/mL
[2023-03-21 12:24] LABS: IGF-1 (Somatomedin C) 69 ng/mL (41-279); IGF-1 Z Score (Female) -1.1 SD (-2.0 - +2.0)
== END 2023-03-14 06:42 | disposition home or self-care (01) ==
LOC: HO.LAB 06:41
PROVIDERS: PCP Family Medicine; Visit Provider Internal Medicine
DX: D35.2 Benign neoplasm of pituitary gland (principal)
CPT/HCPCS: 36415; 80048; 82024; 82533; 82670; 83001; 83002; 83930; 84146; 84270; 84305; 84439; 84443; 84480

== ENCOUNTER → 2023-03-28 07:35 | Outpatient (BNVA) | payer OTHER, SELFPAY | PROVIDERS: PCP Family Medicine; Visit Provider Internal Medicine | DX: D35.2 Benign neoplasm of pituitary gland (principal) | CPT/HCPCS: Q3014 ==

== ENCOUNTER 2023-03-31 07:46 | Outpatient (REF) | payer OTHER, SELFPAY ==
--- NOTE | ~2023-03-31 | MM_ITS ---
EXAMINATION: MM SCREENING DIGITAL BREAST TOMOSYNTHESIS, BILATERAL CLINICAL INFORMATION: Screening. Asymptomatic. The patient has a history of right breast cancer. COMPARISON: Mammography: This study is compared with the prior mammograms dating back to 2018. TECHNIQUE: Digital breast tomosynthesis is performed in both the craniocaudal and mediolateral oblique views along with computer-aided detection (CAD). Synthesized 2D images are generated from the tomosynthesis. FINDINGS: There are scattered areas of fibroglandular density (ACR BI-RADS breast composition Category b). There are postsurgical changes in the upper-outer quadrant of the right breast. There are no significant masses, abnormal calcifications, or other abnormalities. MM/MM tomosynthesis screening BI IMPRESSION: No mammographic evidence of malignancy. Postsurgical changes are present in the upper outer quadrant of the right breast. ASSESSMENT: BI-RADS BI-RADS 2 - Benign Findings RECOMMENDATION: Routine annual mammography screening. 1 year F/U This patient's information was entered into a reminder system with a target due date for their next mammogram.
== END 2023-03-31 07:47 | disposition home or self-care (01) ==
LOC: HO.MAMMO 07:46
PROVIDERS: PCP Family Medicine; Visit Provider Family Medicine
DX: Z12.31 Encounter for screening mammogram for malignant neoplasm of breast (principal)
CPT/HCPCS: 77063; 77067

== ENCOUNTER → 2023-03-31 08:00 | Outpatient (BNV) | payer OTHER, SELFPAY | PROVIDERS: PCP Family Medicine; Visit Provider Radiology Diagnostic Radiology | DX: Z12.31 Encounter for screening mammogram for malignant neoplasm of breast (principal); Z85.3 Personal history of malignant neoplasm of breast | CPT/HCPCS: 77067 ==

== ENCOUNTER 2023-05-15 09:13 | Emergency (ER) | payer OTHER, SELFPAY ==
--- NOTE | ~2023-05-15 | XR_ITS ---
EXAMINATION: XR FOOT, LEFT CLINICAL INFORMATION: Question osteomyelitis second and third toes COMPARISON: None available. TECHNIQUE: AP, lateral, and oblique views of the left foot. FINDINGS: There is surgical hardware seen across the PIP joints of the second and third toes. Hardware appears intact. No fracture or dislocation. There is osteopenia predominantly involving the proximal phalanges of the second and third toes near the PIP joints. No definite bone destruction is seen. It is difficult to exclude early osteomyelitis. There are mild degenerative changes of the midfoot. There are calcaneal spurs. There is soft tissue swelling of the second and third toes. No abnormal air collection is seen. XR/XR foot LT min 3V IMPRESSION: Postsurgical changes to the PIP joints of the second and third toes. Soft tissue swelling of the second and third toes. Osteopenia of the proximal phalanges of the second and third toes near the PIP joints.
[2023-05-15 09:14] VITALS: BP 97/70; PULSE 55; RESP 19; TEMP 36.6; O2SAT 97; BMI 44.8
--- NOTE | 2023-05-15 09:46 | ED_ITS ---
HPI - General Adult General Chief complaint: Extremity Injury, Lower Stated complaint: Infected toe Time Seen by Provider: 05/15/23 09:26 Source: patient Mode of arrival: ambulatory Limitations: no limitations History of Present Illness HPI narrative: Patient is a 62-year-old female with history of recent hammertoe repair to 2nd and 3rd toes of left foot on 04/18 at [facility]. Patient reports ongoing pain, swelling, clear drainage, is concerned for infection. Denies fevers. States she has a blister between 2nd/3rdt toes. Has been applying triple antibiotic ointment. Has not contacted her surgeon. Has been elevating her foot while at rest. MD complaint: left foot pain Onset (ago): day(s) Location: lower extremity Radiation: non-radiation Severity: severe Quality: burning Pain Consistency: constant Relieving factors: rest Exacerbating factors: movement Associated symptoms: denies other symptoms Treatments prior to arrival: other (triple antibiotic ointment) Related Data Home Medications Medication Instructions Recorded Confirmed albuterol sulfate 90 mcg/actuation 2 puff inhalation Q4H PRN 09/09/20 03/28/23 aerosol inhaler Shortness Of Breath amlodipine 10 mg tablet 10 mg PO DAILY 09/09/20 03/28/23 sennosides 8.6 mg tablet 17.2 mg PO DAILY 09/09/20 03/28/23 amitriptyline 10 mg tablet 10 mg PO BEDTIME 06/01/21 03/28/23 lisinopril 30 mg tablet 30 mg PO DAILY 06/01/21 03/28/23 naloxone 4 mg/actuation nasal 1 spray intranasal ONCE PRN Drug 06/01/21 03/28/23 spray (Narcan) Intoxication Symptoms nystatin 100,000 unit/gram topical 1 appl topical ONCE PRN Rash 06/01/21 03/28/23 powder vit C 250 mg-vit E 90 mg-zinc 40 1 cap PO DAILY 06/01/21 03/28/23 mg-copper 1 mn-mpktbg-bfrsue capsule (PreserVision AREDS-2) fluticasone propionate 50 2 spray intranasal DAILY 09/16/21 03/28/23 mcg/actuation nasal spray,suspension loratadine 10 mg tablet 1 tab PO DAILY 09/16/21 03/28/23 methocarbamol 750 mg tablet 1 tab PO BID PRN muscle spasm 09/16/21 03/28/23 oxybutynin chloride 10 mg 1 tab PO DAILY 09/16/21 03/28/23 tablet,extended release 24 hr oxycodone 5 mg tablet 5 mg PO Q8H PRN Pain, Moderate 09/16/21 03/28/23 (Pain Scale 4-6 terbinafine HCl 250 mg tablet 250 mg PO DAILY 03/28/23 03/28/23 Previous Rx's Medication Instructions Recorded acetaminophen 325 mg tablet 650 mg PO Q6H PRN Pain, Mild (Pain 09/11/21 Scale 1-3) 30 days #240 tabs hydrocortisone sod succ (PF) 100 100 mg (2 mL) IM ONCE PRN Adrenal 02/08/22 mg/2 mL solution for injection Insufficiency, unable to take oral (Solu-Cortef Act-O-Vial (PF)) medicat 30 days #1 ea cephalexin 500 mg capsule 500 mg PO QID 7 days #28 caps 05/15/23 Allergies Allergy/AdvReac Type Severity Reaction Status Date / Time BANDAIDS Allergy Intermediate BLISTERS Uncoded 05/15/23 09:14 STERI-STRIPS Allergy Intermediate BLISTERS Uncoded 05/15/23 09:14 Review of Systems Review of Systems: As per HPI. Yes all other systems are reviewed and are negative Constitutional: Constitutional: Reports as per HPI PMFSH Past Medical History Medical History Arthritis Asthma Back pain Cancer COVID-19 vaccine series completed Goiter History of headache HTN (hypertension) Hx of radiation therapy Impingement syndrome of right shoulder Personal history of tuberculosis Pituitary macroadenoma Wears dentures Surgical History H/O colonoscopy History of lumpectomy of right breast History of revision of total knee arthroplasty History of sleeve gastrectomy Hx of dilation and curettage Hx of foot surgery Hx of hand surgery Hx of hysterectomy Hx of total knee replacement Status post arthroscopy of right knee Family History Family History Father No problems noted. Mother No problems noted. 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 Blood pressure normal. Heart rate normal. Respiratory rate normal. Temperature normal. Oxygen saturation normal. Const General: cooperative, healthy appearing and no acute distress Orientation/consciousness: oriented to person, oriented to place, oriented to time and patient oriented x3 Limitations: no limitations HENMT Head: Yes normocephalic and Yes atraumatic Ears: external ears normal General nose exam: Normal external nose present Face and sinus: Yes face symmetric Mouth: oropharynx normal and moist mucous membranes Throat: Yes uvula midline Eyes Pupils: Equal, round and reactive pupils present Neck Neck: Yes normal visual inspection and Yes supple Resp Effort & Inspection: normal respiratory effort and able to speak in complete sentences Auscultation: clear to auscultation bilaterally Cardio Rate: regular rate Rhythm: regular rhythm Heart sounds: S1 normal heart sound present and S2 normal heart sound present GI Palpation (GI): Soft to palpation and nontender Auscultation: normoactive bowel sounds General: Yes no CVA tenderness Back/Spine/Pelvis Back: no CVA tenderness Skin General skin exam: elasticity normal and turgor normal Neuro General: oriented to person, oriented to place, oriented to time, patient oriented x3, moves all extremities, no focal motor deficits and CN's II-XI intact bilaterally Cranial nerves: Yes Equal, round and reactive pupils present Cognition (Neuro): normal cognition Extrem Other: General: Yes full ROM, Yes normal exam except as noted, Yes no pedal edema and Yes no calf tenderness Left lower extremity: foot Details: normal capillary refill, tenderness Locati on: of another digit Location: the 2nd digit and the 3rd digit, abnormal ROM of toe (decreased 2nd/3rd toe r/t recent surgical repair) Details: pain with active ROM, edema Location: of another digit Location: the 2nd digit and the 3rd digit, vascular exam Details: dorsalis pedis pulse present, posterior tibial pulse present and normal capillary refill and motor-sensory exam Details: two point discrimination normal and light-touch normal; no unusual warmth Psych Mental Status: mental status grossly normal Affect: normal affect Thought process: Normal thought process present Medical Decision Making Medical Decision Making [facility] Narrative: Patient is a 62-year-old female with history of recent hammertoe repair to 2nd and 3rd toes of left foot on 04/18 at [facility]. On exam patient is awake, A+Ox3, VS WNL, afebrile, nontoxic appearing, normal neurological exam without focal deficits, moderate swelling noted to 2nd and 3rd toes of left foot, hyper pigmentation with vesicular rash, no discharge or drainage, no bullae, no erythema or warmth no fluctuance, no pain out of proportion. Given reported symptoms and physical exam findings, initial differential includes cellulitis, osteomyelitis. Do not suspect necrotizing fasciitis. X-ray notable for postsurgical changes and soft tissue swelling, no evidence of osteomyelitis. My interpretation is in agreement with the radiologist's interpretation. Will discharge patient home on course of antibiotics and instructed patient to contact her surgeon's office thing Tuesday morning. Return precautions discussed at bedside. Advised patient to keep foot elevated while at rest. Patient verbalized understanding of and agreement with plan. Differential Diagnosis Differential Diagnoses: The differential diagnosis associated with the presentation includes As per MDM. Admission/Observation Consideration of admission/observation: Escalation of care including admission/observation considered Independent Interpretation I performed an independent interpretation of an: Plain X-Ray Interpretation: Postsurgical changes, soft tissue swelling, no evidence of osteomyelitis Radiology Impression Discussion of test interpretation with radiology: I have reviewed the radiologist's reading. Radiologist Impression: XR/XR foot LT min 3V IMPRESSION: Postsurgical changes to the PIP joints of the second and third toes. Soft tissue swelling of the second and third toes. Osteopenia of the proximal phalanges of the second and third toes near the PIP joints. External Record Review External record reviewed: Inpatient record, Office record and Outpatient record Prescription Management I considered prescription management with: Antibiotic Discharge Plan Discharge Clinical Impression: Cellulitis of foot, left Patient Disposition: Home, Self-Care Instructions: Cellulitis (DC) Additional Instructions: You have been evaluated in the emergency department today for skin infection, also known as cellulitis. Please take your prescribed antibiotics as directed for the full course of the medication. You can use Tylenol or ibuprofen per package instructions every 6 hours as needed for pain. If necessary, you can alternate these medications so that you can take one medication every 3 hours. For instance, at noon take ibuprofen, then at 3:00 p.m. take Tylenol, then at 6:00 p.m. take ibuprofen. Please schedule an appointment for follow-up with your surgeon as soon as possible. Return to the emergency department if you experience recurrent vomiting, fevers greater than 100.4? F, increasing area of redness, warmth around the area, foul-smelling discharge from the area, increased tenderness around the area, or any other concerning symptoms. Prescriptions: New cephalexin 500 mg capsule 500 mg PO QID 7 Days Qty: 28 0RF No Action acetaminophen 325 mg Tablet 650 mg PO Q6H PRN (Reason: Pain, Mild (Pain Scale 1-3)) 30 Days Qty: 240 0RF oxybutynin chloride 10 mg tablet extended release 24hr 1 tab PO DAILY methocarbamol 750 mg tablet 1 tab PO BID PRN (Reason: muscle spasm) fluticasone propionate 50 mcg/actuation spray,suspension 2 spray intranasal DAILY loratadine 10 mg tablet 1 tab PO DAILY oxycodone 5 mg tablet 5 mg PO Q8H PRN (Reason: Pain, Moderate (Pain Scale 4-6) PreserVision AREDS-2 250-90-40-1 mg capsule 1 cap PO DAILY lisinopril 30 mg tablet 30 mg PO DAILY amitriptyline 10 mg tablet 10 mg PO BEDTIME nystatin 100,000 unit/gram powder 1 appl topical ONCE PRN (Reason: Rash) Narcan 4 mg/actuation spray,non-aerosol 1 spray intranasal ONCE PRN (Reason: Drug Intoxication Symptoms) albuterol sulfate 90 mcg/actuation HFA aerosol inhaler 2 puff inhalation Q4H PRN (Reason: Shortness Of Breath) amlodipine 10 mg tablet 10 mg PO DAILY sennosides 8.6 mg tablet 17.2 mg PO DAILY Solu-Cortef Act-O-Vial (PF) 100 mg/2 mL recon soln 100 mg IM ONCE PRN (Reason: Adrenal Insufficiency, unable to take oral medicat) 30 Days Qty: 1 3RF terbinafine HCl 250 mg tablet 250 mg PO DAILY
== END 2023-05-15 11:18 | disposition home or self-care (01) ==
PROVIDERS: Emergency Provider Emergency Medicine Emergency Medical Services; PCP Family Medicine
DX: L03.116 Cellulitis of left lower limb (principal)
CPT/HCPCS: 73630; 99283

== ENCOUNTER 2023-08-15 10:25 | Outpatient (REF) | payer OTHER, SELFPAY | END 2023-08-15 10:26 | disposition home or self-care (01) | LOC: HO.LAB 10:25 | PROVIDERS: PCP Family Medicine; Visit Provider Surgery | DX: L02.411 Cutaneous abscess of right axilla (principal) | CPT/HCPCS: 10060; 87070; 87077; 87186; 87205; 99202 ==

== ENCOUNTER 2023-08-15 10:25 | Outpatient (AMB) | payer OTHER, SELFPAY ==
--- NOTE | 2023-08-15 10:26 | MHC.OFFVIS ---
Intake Vital Signs 08/15/23 10:34 Height 5 ft Weight 232 lb BMI 45.3 BP 128/72 Blood Pressure Location Lt brachial Position Sitting Pulse 72 Intake Visit Reasons: abscess of the right armpit Intake Note: Patient referred for abscess on Rt axilla. Has been present since Tuesday. C/o tenderness, painful. Denies oozing, bleeding. 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 Required: No Accompanied by: Self / Same As Patient Allergies BANDAIDS Allergy (Intermediate, Uncoded 08/15/23 10:29) BLISTERS STERI-STRIPS Allergy (Intermediate, Uncoded 08/15/23 10:29) BLISTERS Medication List - Last Reconciled 08/15/23 by Solo Berrios MD acetaminophen 650 mg (2 x 325 mg) PO Q6H PRN 30 days albuterol sulfate 90 mcg/actuation 2 puffs inhalation Q4H PRN amitriptyline 10 mg PO BEDTIME amlodipine 10 mg PO DAILY naloxone 4 mg/actuation (Narcan) 1 spray intranasal ONCE PRN nystatin 1 appl topical ONCE PRN oxycodone 5 mg PO Q8H PRN sennosides 17.2 mg PO DAILY vit C,Z-Mz-erigy-lutein-zeaxan 250-90-40-1 mg (PreserVision AREDS-2) 1 cap PO DAILY HPI HPI Comments History of Present Illness Details Patient presents with approximately 4-5 day history of right axillary abscess. It is increasing size, become more symptomatic. She has never had these before. Chart was reviewed patient evaluated. [facility] Medical History Goiter Pituitary macroadenoma COVID-19 vaccine series completed Wears dentures Hx of radiation therapy Cancer Back pain Arthritis History of headache Personal history of tuberculosis Asthma HTN (hypertension) Impingement syndrome of right shoulder Surgical History Status post arthroscopy of right knee Hx of hand surgery History of revision of total knee arthroplasty Hx of dilation and curettage Hx of hysterectomy Hx of total knee replacement History of sleeve gastrectomy Hx of foot surgery History of lumpectomy of right breast H/O colonoscopy Family History Father No problems noted. Mother No problems noted. 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 Office Procedures I&D Drain Details: Risks, benefits, alternatives of incision and drainage of right axillary abscess reviewed the patient included but not limited to bleeding, infection, recurrence, numbness, pain, scarring and the patient was to proceed. All questions were answered. After appropriate positioning, patient underwent one % lidocaine and Betadine prep and uneventful incision and drainage of a large right axillary abscess measuring approximately four by three cm. Copious amounts of purulent material retrieved. Cultures were obtained. Wound was irrigated, secured hemostasis, packed, and dressing applied. [place] [address] of Skin Abscess, complex All charges added?: Procedure code (CPT) selection complete Assessment & Plan Assessment & Plan (1) Abscess of right axilla: Code(s): L02.411 - Cutaneous abscess of right axilla Plan: Patient will be given antibiotics, analgesics, local wound instructions, and will follow up with Cody in the office tomorrow for packing changes. Orders: Orders AMB Incision & Drainage Today L02.411 - Cutaneous abscess of right axilla Coding Level of Care Code New Pt Level 4 (76181) Diagnoses Abscess of right axilla L02.411 CPT Codes I&D Drain - Drain 2: 32876-[place] of Skin Abscess, complex ([id number])
[2023-08-15 10:34] VITALS: BP 128/72; PULSE 72; BMI 45.3
== END 2023-08-15 10:58 | disposition home or self-care (01) ==
PROVIDERS: PCP Family Medicine; Visit Provider Surgery
DX: L02.411 Cutaneous abscess of right axilla (principal)
CPT/HCPCS: 10060; 99204

== ENCOUNTER → 2023-08-16 08:53 | Outpatient (BNVA) | payer OTHER, SELFPAY | PROVIDERS: PCP Family Medicine; Visit Provider Surgery | DX: Z48.01 Encounter for change or removal of surgical wound dressing (principal); Z87.2 Personal history of diseases of the skin and subcutaneous tissue | CPT/HCPCS: 99211 ==

== ENCOUNTER 2024-02-08 15:51 | Outpatient (REF) | payer OTHER, SELFPAY ==
--- NOTE | ~2024-02-08 | XR_ITS ---
EXAMINATION: XR SHOULDER, RIGHT CLINICAL INFORMATION: Chronic right shoulder pain, patient denies injury and stated pain for 2 weeks, unable to perform all views due to limited mobility. COMPARISON: 08/04/2020 TECHNIQUE: 3 views of the right shoulder. FINDINGS: Degenerative changes with hypertrophic change and erosions at the acromioclavicular joint as well as faint calcifications in soft tissues along the superior aspect of the joint. Glenohumeral alignment preserved. Mild degenerative changes in the glenohumeral joint. XR/XR shoulder RT min 2V IMPRESSION: 1. Advanced degenerative changes with hypertrophic change and erosions at the acromioclavicular joint as well as filling calcifications in soft tissues along the superior aspect of the joint. 2. Mild degenerative changes in the glenohumeral joint.
== END 2024-02-08 15:52 | disposition home or self-care (01) ==
LOC: HO.HHCX 15:51
PROVIDERS: Visit Provider Internal Medicine
DX: M25.511 Pain in right shoulder (principal); G89.29 Other chronic pain
CPT/HCPCS: 73030

== ENCOUNTER 2024-02-18 09:14 | Outpatient (REF) | payer OTHER, SELFPAY ==
[2024-02-18 10:25] LABS: Hematocrit 42.1 % (37.0-47.0); Hemoglobin 12.8 g/dl (12.0-16.0); Mean Corpuscular HGB Conc 30.4 g/dl (31.0-35.0); Mean Corpuscular Hemoglobin 27.6 pg (27.0-33.0); Mean Corpuscular Volume 90.9 fL (80.0-98.0); Platelet Count 268 X10*3/uL (160-400); Red Blood Count 4.63 X10*6/uL (4.20-5.50); White Blood Count 5.6 X10*3/uL (4.8-10.8)
[2024-02-18 10:37] LABS: Estimated Average Glucose 114 mg/dL; Hemoglobin A1c % 5.6 % (<6.0)
[2024-02-18 11:11] LABS: Erythrocyte Sedimentation Rate 14 MM/HR (0-20)
[2024-02-18 11:15] LABS: Alanine Aminotransferase 13 U/L (0-31); Albumin Level 3.9 g/dL (3.5-5.0); Alkaline Phosphatase 67 U/L (39-117); Anion Gap 11 (12-20); Aspartate Amino Transferase 21 U/L (5-31); Bilirubin Direct 0.2 mg/dL (0.0-0.5); Bilirubin Total 0.5 mg/dL (0.0-1.0); Blood Urea Nitrogen 17 mg/dL (9-16); Calcium 9.5 mg/dL (8.4-10.2); Carbon Dioxide 28 mmol/L (22-29); Chloride 105 mmol/L (96-108); Cholesterol 186 mg/dL (<200); Estimated Glomerular Filt Rate > 60; Glucose Random 89 mg/dL (60-115); HDL Cholesterol 71 mg/dL (>40); LDL Cholesterol Calculated 101 mg/dL (<100); Potassium 4.1 mmol/L (3.3-5.1); Sodium 140 mmol/L (135-145); Total Protein 7.1 g/dL (6.5-8.0); Triglycerides 72 mg/dL (<150)
[2024-02-18 11:33] LABS: Free T4 (Free Thyroxine) 1.08 ng/dL (0.71-1.85); Thyroid Stimulating Hormone 0.86 uIU/mL (0.32-4.0); Vitamin D 25-OH Total 20.9 ng/mL (>30)
[2024-02-18 12:01] LABS: Creatinine Urine 130.52 mg/dL; Microalbum/Creatinine Ratio Ur 5.3 ug/mg cr (<30)
[2024-02-20 13:49] LABS: Alpha Fetoprotein 2.3 ng/mL
[2024-02-20 21:34] LABS: Lyme Abs Screen <0.90 index
== END 2024-02-18 09:15 | disposition home or self-care (01) ==
LOC: HO.LAB 09:14
PROVIDERS: Absent Provider Family Medicine; PCP Family Medicine; Visit Provider Psychiatry & Neurology Neurology
DX: I10 Essential (primary) hypertension (principal); K76.0 Fatty (change of) liver, not elsewhere classified; R51.9 Headache, unspecified
CPT/HCPCS: 36415; 80048; 80061; 80076; 82043; 82105; 82306; 82570; 83036; 84439; 84443; 85027; 85652; 86617; 86618

== ENCOUNTER 2024-02-23 10:07 | Outpatient (REF) | payer OTHER, SELFPAY ==
--- NOTE | ~2024-02-23 | XR_ITS ---
EXAMINATION: XR SHOULDER, LEFT CLINICAL INFORMATION: Worsening left shoulder pain COMPARISON: X-rays of the left shoulder December 2019 TECHNIQUE: AP external rotation, Grashey, scapular Y, and axillary views of the left shoulder. FINDINGS: Glenohumeral joint: Normal. Acromioclavicular joint: There is mild to moderate hypertrophic osteoarthritis unchanged. Surrounding bone and soft tissues unremarkable.. XR/XR shoulder LT min 2V IMPRESSION: Degenerative changes of the left shoulder unchanged compared with December 2019.
== END 2024-02-23 10:08 | disposition home or self-care (01) ==
LOC: HO.XRAY 10:07
PROVIDERS: Absent Provider Psychiatry & Neurology Neurology; PCP Family Medicine; Visit Provider Family Medicine
DX: M25.511 Pain in right shoulder (principal); G89.29 Other chronic pain; M25.512 Pain in left shoulder
CPT/HCPCS: 73030

== ENCOUNTER 2024-02-24 09:20 | Outpatient (REF) | payer OTHER, SELFPAY ==
[2024-02-29 13:38] LABS: Adrenocorticotropic Hormone 50 pg/mL (6-50)
== END 2024-02-24 09:21 | disposition home or self-care (01) ==
LOC: HO.LAB 09:20
PROVIDERS: PCP Family Medicine; Visit Provider Psychiatry & Neurology Neurology
DX: D35.2 Benign neoplasm of pituitary gland (principal); M19.012 Primary osteoarthritis, left shoulder; M19.011 Primary osteoarthritis, right shoulder
CPT/HCPCS: 20610; 36415; 82024; 99212; J1010

== ENCOUNTER 2024-02-24 10:06 | Outpatient (AMB) | payer OTHER, SELFPAY ==
--- NOTE | 2024-02-24 10:23 | MHC.OFFVIS ---
Vital Signs 02/24/24 10:35 Height 5 ft Weight 232 lb BMI 45.3 Intake Visit Reasons: OV-Rt shoulder pain, last injection 07/31/20 Intake Note: Gretel a 63 year old female who presents today for a follow up of right shoulder pain, last injection on 07/31/20. Patient reports she does not recall injection as it has been some time since her last injection. States pain has been present in bilateral shoulders for a little over 2 months. Limited ROM. States pain is worse at night and becomes throbbing. Finds no relief with ibuprofen, muscle relaxer, or oxycodone that is prescribed through pain management. Denies injury. Left shoulder xrays were done at [facility]. Allergies BANDAIDS Allergy (Intermediate, Uncoded 02/24/24 10:35) BLISTERS STERI-STRIPS Allergy (Intermediate, Uncoded 02/24/24 10:35) BLISTERS HPI HPI OV-Rt shoulder pain, last injection 07/31/20: Details: 63-year-old female who returns to the office today for a follow-up of right shoulder pain. She had her last injection on 07/31/20 which she cannot recall if provided her relief. She states she has pain and limited ROM in her bilateral shoulder for more than 2 months that is worse on her left shoulder. Her pain is aggravated at night and becomes throbbing. She finds no relief with ibuprofen, muscle relaxer, or oxycodone prescribed by the pain management. She has not had any injury in the past. She does not have a history of diabetes. [facility] Medical History Goiter Pituitary macroadenoma COVID-19 vaccine series completed Wears dentures Hx of radiation therapy Cancer Back pain Arthritis History of headache Personal history of tuberculosis Asthma HTN (hypertension) Impingement syndrome of right shoulder Surgical History Status post arthroscopy of right knee Hx of hand surgery History of revision of total knee arthroplasty Hx of dilation and curettage Hx of hysterectomy Hx of total knee replacement History of sleeve gastrectomy Hx of foot surgery History of lumpectomy of right breast H/O colonoscopy Family History Father No problems noted. Mother No problems noted. 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 Tenderness over the bicipital groove and along the deltoid region of the shoulder. Forward flexion to 175, external rotation to 90, internal rotation to S1. 5/5 RTC strength. Positive Keita and cross body abduction. NVI. Office Procedures Joint Injection/Drain Joint Injection/Drain Primary Site: left shoulder Prep: site was prepped using aseptic technique, ethochloride spray was applied and injection warnings given Injected: 80 mg of, DepoMedrol, with 8 mL of, 1% plain lidocaine and in the subcromial space Approach Used: posterolateral Procedure: The patient tolerated the procedure well and there was some relief with the local anesthesia Coding 01391 - Glenohumeral/Tronchanteric Bursa/Intraarticular Procedure code (CPT) selection complete Assessment & Plan Assessment & Plan (1) Osteoarthritis of shoulders, bilateral: Code(s): M19.011 - Primary osteoarthritis, right shoulder; M19.012 - Primary osteoarthritis, left shoulder Category: Medical Plan We discussed options today which include steroid injection. They did consent to move forward with the left shoulder injection, which was tolerated well. I recommended rest, ice and elevation and OTC anti-inflammatories PRN for discomfort. If symptoms persist or worsens over the next 6-8 weeks, patient will contact the office, otherwise follow-up if he want to proceed with the right shoulder injection. Patient Instructions: Scribed for Iesha Malhotra PA-C, by Saji Molina medical radiation tech, on 02/24/2024 at 10:15 AM EST.? I, Iesha Malhotra PA-C, have personally reviewed and agree with the information entered by the scribe. Coding Level of Care Code Est Pt Level 3 (65549) Diagnoses Osteoarthritis of shoulders, bilateral M19.011; M19.012 CPT Codes Coding - Joint 7: 44144 - Glenohumeral/Tronchanteric Bursa/Intraarticular ([id number])
[2024-02-24 10:35] VITALS: BMI 45.3
== END 2024-02-24 11:07 | disposition home or self-care (01) ==
PROVIDERS: PCP Family Medicine; Visit Provider Physician Assistant
DX: M19.011 Primary osteoarthritis, right shoulder (principal); M19.012 Primary osteoarthritis, left shoulder
CPT/HCPCS: 20610; 99214

== ENCOUNTER 2024-05-16 07:24 | Outpatient (REF) | payer OTHER, SELFPAY ==
--- NOTE | ~2024-05-16 | MM_ITS ---
EXAMINATION: MM SCREENING DIGITAL BREAST TOMOSYNTHESIS, BILATERAL CLINICAL INFORMATION: Screening. Asymptomatic. The patient has a history of prior right breast cancer. COMPARISON: Mammography: This study is compared with prior exams dating back to 2018. TECHNIQUE: Digital breast tomosynthesis is performed in both the craniocaudal and mediolateral oblique views along with computer-aided detection (CAD). Synthesized 2D images are generated from the tomosynthesis. FINDINGS: There are scattered areas of fibroglandular density (ACR BI-RADS breast composition Category b). There are no significant masses, abnormal calcifications, or other abnormalities. There are postsurgical changes in the upper outer quadrant of the right breast. MM/MM tomosynthesis screening BI IMPRESSION: No mammographic evidence of malignancy. ASSESSMENT: BI-RADS BI-RADS 2 - Benign Findings RECOMMENDATION: Routine annual mammography screening. 1 year F/U This examination should not preclude the clinical evaluation of a suspicious palpable abnormality. This patient's information was entered into a reminder system with a target due date for their next mammogram.
== END 2024-05-16 07:25 | disposition home or self-care (01) ==
LOC: HO.MAMMO 07:24
PROVIDERS: PCP Family Medicine; Visit Provider Family Medicine
DX: Z12.31 Encounter for screening mammogram for malignant neoplasm of breast (principal)
CPT/HCPCS: 77063; 77067

== ENCOUNTER → 2024-05-16 07:45 | Outpatient (BNV) | payer OTHER, SELFPAY | PROVIDERS: PCP Family Medicine; Visit Provider Radiology Diagnostic Radiology | DX: Z12.31 Encounter for screening mammogram for malignant neoplasm of breast (principal) | CPT/HCPCS: 77063; 77067 ==

== ENCOUNTER → 2024-06-07 14:34 | Outpatient (RCR) | payer OTHER, SELFPAY ==
[2020-09-29 10:56] VITALS: BP 153/77; PULSE 68; RESP 12; TEMP 36.3; O2SAT 97; BMI 40.8
[2020-09-29 11:36] LABS: MANUAL DIFF FLAG NO
[2020-09-29 11:41] LABS: Basophils Percent Auto 0.4 % (0-2); Eosinophils Absolute Auto 0.1 X10*3/uL (0.0-0.4); Eosinophils Percent Auto 1.2 % (0-4); Hematocrit 43.6 % (37-47); Hemoglobin 13.5 g/dl (12.0-16.0); Imm Gran Abs Auto 0.01 X10*3/uL (0.00-0.03); Imm Gran Pct Auto 0.1 % (0.0-0.4); Lymphocytes Absolute Auto 1.3 X10*3/uL (1.2-4.9); Mean Corpuscular Hemoglobin 28.2 pg (27.0-33.0); Mean Corpuscular Volume 91.2 fL (80-98); Mean Platelet Volume 9.8 fL (9.4-12.3); Monocytes Absolute Auto 0.5 X10*3/uL (0.1-1.2); Monocytes Percent Auto 7.9 % (2-11); Neutrophils Absolute Auto 4.8 X10*3/uL (2.0-8.3); Neutrophils Percent Auto 71.4 % (45-73); Platelet Count 263 X10*3/uL (160-400); Red Blood Count 4.78 X10*6/uL (4.20-5.50); White Blood Count 6.7 X10*3/uL (4.8-10.8)
[2020-09-29 12:09] LABS: Alanine Aminotransferase 18 U/L (0-31); Alkaline Phosphatase 74 U/L (39-117); Anion Gap 10 (12-20); Aspartate Amino Transferase 23 U/L (5-31); Bilirubin Total 0.4 mg/dL (0.0-1.0); Blood Urea Nitrogen 16 mg/dL (9-16); Calcium 9.3 mg/dL (8.4-10.2); Carbon Dioxide 30 mmol/L (22-29); Chloride 104 mmol/L (96-108); Creatinine Clr Calc Pharmacy 86.8; Estimated Glomerular Filt Rate > 60; Glucose Random 93 mg/dL (60-115); Potassium 4.8 mmol/l (3.3-5.1); Sodium 139 mmol/L (135-145); Total Protein 6.9 g/dL (6.5-8.0)
--- NOTE | 2020-09-29 14:33 | PM.HEMONCPN ---
Medical Summary - Medical Summary Date of Service: 09/29/20 Chief complaint: Follow-up for DCIS. Medical Summary: DIAGNOSIS: RIGHT BREAST DCIS. 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 Solid and cribriform types with microcalcifications, intermediate to high nuclear grade at 0.15 cm from posterior inferior margin. Additionally, focal atypical lobular hyperplasia was seen as well. Stage pTis. Adjuvant radiation therapy, started mid March 2014, completed 05/16/2014. Tamoxifen started 5 03/18/2014. Interval History Interval history: This is a pleasant 60-year-old lady, here for a follow-up visit. She tells me she has been feeling quite well. She has chronic aches and pains involving her back knees and shoulders. She has a history of arthritis. She takes Tylenol Arthritis and Percocets for spasms. She has good energy level. She denies any breast related complaints. No chest pain or trouble breathing. She denies abdominal pain nausea vomiting heartburn indigestion. Her bowels are working without any gross blood in it. She enjoys a good appetite. Her weight is stable. She is in good spirits. Rest of the review of systems is unremarkable. Review of Systems - Constitutional Reports no additional constitutional complaints - Eyes Reports no additional eye complaints - ENT Reports no additional ear, nose, mouth, and throat complaints - Cardiovascular Reports no additional cardiovascular complaints - Respiratory Reports no additional respiratory complaints - Gastrointestinal Reports no additional gastrointestinal complaints - Genitourinary Reports no additional female genitourinary complaints - Musculoskeletal Reports no additional musculoskeletal complaints - Integumentary/Breasts Skin/Breast: Reports no additional skin complaints - Neurologic Reports no additional neurologic complaints - Psychiatric Reports no additional psychiatric complaints - Endocrine Reports no additional endocrine complaints - Hematologic/Lymphatic Reports no additional hematologic/lymphatic complaints - Allergic/Immunologic Reports no additional allergic/immunologic complaints [facility] Medical History: Medical History (Last Reviewed 09/29/20 @ 12:[address]) Arthritis Asthma Back pain Cancer DCIS (ductal carcinoma in situ) History of headache HTN (hypertension) Hx of radiation therapy Impingement syndrome of right shoulder Osteoarthritis of right knee Personal history of tuberculosis Wears dentures Functional capacity: independent ambulation Patient : No Family History: Family History (Last Reviewed 09/29/20 @ 12:[address]) Father No problems noted. Mother No problems noted. Surgical History: Surgical History (Last Reviewed 09/29/20 @ 12:[address]) H/O colonoscopy History of lumpectomy of right breast History of sleeve gastrectomy Hx of dilation and curettage Hx of foot surgery Hx of hysterectomy Hx of total knee replacement Status post left knee replacement Smoking status: Never smoker Home Medications and Allergies Home Medications Medication Instructions Recorded Confirmed Type oxycodone-acetaminophen 2.5 mg-325 1 tab PO Q8H PRN 07/21/20 09/29/20 History mg tablet albuterol sulfate 90 mcg/actuation 90 mcg INHALATION BID 09/09/20 09/29/20 History aerosol inhaler amlodipine 10 mg tablet 10 mg PO DAILY 09/09/20 09/29/20 History fluticasone propionate 50 50 mcg INTRANASAL DAILY 09/09/20 09/29/20 History mcg/actuation nasal spray,suspension loratadine 10 mg tablet 10 mg PO DAILY PRN 09/09/20 09/29/20 History sennosides 8.6 mg tablet 17.2 mg PO DAILY 09/09/20 09/29/20 History lisinopril 20 mg PO DAILY 09/29/20 09/29/20 History Allergies Allergy/AdvReac Type Severity Reaction Status Date / Time BANDAIDS Allergy Intermediate BLISTERS Uncoded 09/29/20 12:32 STERI-STRIPS Allergy Intermediate BLISTERS Uncoded 09/29/20 12:32 Exam Vital signs: Vital Signs Temp 97.3 F 09/29/20 10:56 Pulse 68 09/29/20 10:56 Resp 12 09/29/20 10:56 BP 153/77 H 09/29/20 10:56 Pulse Ox 97 09/29/20 10:56 Intake & Output 09/28/20 09/29/20 09/29/20 18:59 06:59 18:59 Other: Weight 98.1 kg Weight 98.1 kg Body Mass Index 40.8 - Constitutional Present: no acute distress - Routine HEENT Exam Head: Present: normal inspection Eye: Present: normal appearance ENT: Present: mucous membranes moist - Routine Neck Exam Present: full ROM - Routine Respiratory Exam Present: CTAB - Routine Cardiovascular Exam Cardiovascular: Present: RRR, S1, S2 - Routine Abdominal Exam Present: soft, nontender - Routine Rectal Exam Patient deferred: digital exam - Routine Extremities Exam Present: nontender - Routine Back/Spine/Pelvis Exam Back/Spine: Present: full ROM - Routine Skin Exam Present: intact - Routine Neurological Exam Present: alert, oriented X3 - Routine Psychiatric Exam Present: normal affect Data - Labs CBC & Chem 7: 09/29/20 11:33 09/29/20 11:33 Labs: 09/29/20 11:33 CMP [Comprehensive Met. Panel] Routine Complete Blood Count Auto Diff Routine Laboratory Last Values WBC 6.7 X10*3/uL (4.8-10.8) 09/29/20 11:33 RBC 4.78 X10*6/uL (4.20-5.50) 09/29/20 11:33 Hgb 13.5 g/dl (12.0-16.0) 09/29/20 11:33 Hct 43.6 % (37-47) 09/29/20 11:33 MCV 91.2 fL (80-98) 09/29/20 11:33 MCH 28.2 pg (27.0-33.0) 09/29/20 11:33 MCHC 31.0 g/dl (31.0-35.0) 09/29/20 11:33 RDW 13.0 % (11.0-16.0) 09/29/20 11:33 Plt Count 263 X10*3/uL (160-400) 09/29/20 11:33 MPV 9.8 fL (9.4-12.3) 09/29/20 11:33 Immature Gran % (Auto) 0.1 % (0.0-0.4) 09/29/20 11:33 Neut % (Auto) 71.4 % (45-73) 09/29/20 11:33 Lymph % (Auto) 19.0 % (20-40) L 09/29/20 11:33 Preble % (Auto) 7.9 % (2-11) 09/29/20 11:33 Eos % (Auto) 1.2 % (0-4) 09/29/20 11:33 Baso % (Auto) 0.4 % (0-2) 09/29/20 11:33 Lymph # (Auto) 1.3 X10*3/uL (1.2-4.9) 09/29/20 11:33 Preble # (Auto) 0.5 X10*3/uL (0.1-1.2) 09/29/20 11:33 Eos # (Auto) 0.1 X10*3/uL (0.0-0.4) 09/29/20 11:33 Baso # (Auto) 0.0 X10*3/uL (0.0-0.2) 09/29/20 11:33 Abs Immat Gran (auto) 0.01 X10*3/uL (0.00-0.03) 09/29/20 11:33 Absolute Neuts (auto) 4.8 X10*3/uL (2.0-8.3) 09/29/20 11:33 Absolute Nucleated RBC 0.000 X10*3/uL (0.0-0.012) 09/29/20 11:33 Nucleated RBC % (auto) 0.0 /100WBC (0.0-0.2) 09/29/20 11:33 Sodium 139 mmol/L (135-145) 09/29/20 11:33 Potassium 4.8 mmol/l (3.3-5.1) 09/29/20 11:33 Chloride 104 mmol/L (96-108) 09/29/20 11:33 Carbon Dioxide 30 mmol/L (22-29) H 09/29/20 11:33 Anion Gap 10 (12-20) L 09/29/20 11:33 BUN 16 mg/dL (9-16) 09/29/20 11:33 Creatinine 0.72 mg/dL (0.5-1.4) 09/29/20 11:33 Estim Creat Clear Calc 86.8 09/29/20 11:33 Estimated GFR > 60 09/29/20 11:33 Random Glucose 93 mg/dL (60-115) 09/29/20 11:33 Calcium 9.3 mg/dL (8.4-10.2) 09/29/20 11:33 Total Bilirubin 0.4 mg/dL (0.0-1.0) 09/29/20 11:33 AST 23 U/L (5-31) 09/29/20 11:33 ALT 18 U/L (0-31) 09/29/20 11:33 Alkaline Phosphatase 74 U/L (39-117) 09/29/20 11:33 Total Protein 6.9 g/dL (6.5-8.0) 09/29/20 11:33 Albumin 4.0 g/dL (3.5-5.0) 09/29/20 11:33 Progress Note: A/P (1) Ductal carcinoma in situ (DCIS) of right breast Status: Acute Assessment and plan: This is a pleasant 60-year-old lady with history of right breast DCIS, intermediate to high nuclear grade with areas of focal atypical hyperplasia. Stage pTis. Completed adjuvant radiation therapy 05/16. She was on tamoxifen from 02/15/2014 to 08/19. It had to be stopped because of postmenopausal vaginal bleeding. Endometrial biopsy was benign. She started letrozole 2.5 mg daily 11/20. She completed 5 years of adjuvant hormonal therapy. Stopped on 03/31/2020. She is clinically doing well. PLAN: She was not able to keep her appointment for the mammogram in July. This will be rescheduled. Bone density from October of this year was normal. She will return in 6 months for a follow-up visit. Thank you, CC: Anushka Cerna. - Time Spent With Patient Total time spent is greater than 50% in coordination of care (as documented) at patient's floor/unit and/or counseling patient: 25 - 35 minutes
[2021-04-01 08:33] VITALS: BP 185/85; PULSE 60; RESP 14; TEMP 36.2; O2SAT 98; BMI 39.4
--- NOTE | 2021-04-01 08:44 | PM.HEMONCPN ---
Medical Summary - Medical Summary Date of Service: 04/01/21 Chief complaint: Follow-up Medical Summary: DIAGNOSIS: RIGHT BREAST DCIS. 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 Solid and cribriform types with microcalcifications, intermediate to high nuclear grade at 0.15 cm from posterior inferior margin. Additionally, focal atypical lobular hyperplasia was seen as well. Stage pTis. Adjuvant radiation therapy, started mid March 2014, completed 05/16/2014. Tamoxifen started 5 03/18/2014. Interval History Interval history: patient is here in follow-up. Overall she is doing quite well and has no complaints today other than chronic arthralgias from osteoarthritis. She had her mammogram a few weeks ago which was normal. She denies any complaints pertaining to her breasts. She is up-to-date on colonoscopy. She denies any interim medical problems or new medications. No history of any infections. Review of Systems - Constitutional Reports as per HPI, Reports no additional constitutional complaints - Cardiovascular Reports no additional cardiovascular complaints - Respiratory Reports no additional respiratory complaints - Gastrointestinal Reports no additional gastrointestinal complaints - Neurologic Reports no additional neurologic complaints [facility] Medical History: Medical History (Last Reviewed 01/15/21 @ 08:52 by Lisa Caruso) Arthritis Asthma Back pain Cancer DCIS (ductal carcinoma in situ) History of headache HTN (hypertension) Hx of radiation therapy Impingement syndrome of right shoulder Osteoarthritis of right knee Personal history of tuberculosis Wears dentures Functional capacity: independent ambulation Family History: Family History (Last Reviewed 01/15/21 @ 08:52 by Lisa Caruso) Father No problems noted. Mother No problems noted. Surgical History: Surgical History (Last Reviewed 01/15/21 @ 08:52 by Lisa Caruso) H/O colonoscopy History of lumpectomy of right breast History of sleeve gastrectomy Hx of dilation and curettage Hx of foot surgery Hx of hysterectomy Hx of total knee replacement Status post left knee replacement Social History: Social History (Last Reviewed 01/15/21 @ 08:52 by Lisa Caruso) Living Situation History: Household Members: Family Housing: House Are you a primary healthcare consultant to a significant other at home: No Do you presently have visiting nurse or other home services: No Alcohol History: Alcohol intake: never Substance Use History: Use of substances other than those prescribed or required for medical reasons: No Domestic Abuse History: Have you been hit, kicked, punched, or otherwise hurt by someone within the past year? If so, by whom?: No Nutrition Assessment: Patient : No Occupation Assessmet: Current occupational status: disabled Current occupation: Right Handed Oncology Screenings - ECOG Performance Status ECOG Performance Status: 1 Home Medications and Allergies Home Medications Medication Instructions Recorded Confirmed Type albuterol sulfate 90 mcg/actuation 2 puff INHALATION Q4H PRN 09/09/20 10/07/20 History aerosol inhaler amlodipine 10 mg tablet 10 mg PO DAILY 09/09/20 10/07/20 History sennosides 8.6 mg tablet 17.2 mg PO DAILY 09/09/20 10/07/20 History lisinopril 20 mg tablet 30 mg PO DAILY tab 10/06/20 04/01/21 History Allergies Allergy/AdvReac Type Severity Reaction Status Date / Time BANDAIDS Allergy Intermediate BLISTERS Uncoded 09/29/20 12:32 STERI-STRIPS Allergy Intermediate BLISTERS Uncoded 09/29/20 12:32 Exam Vital signs: Vital Signs Temp 97.2 F 04/01/21 08:33 Pulse 60 04/01/21 08:33 Resp 14 04/01/21 08:33 BP 185/85 H 04/01/21 08:33 Pulse Ox 98 04/01/21 08:33 Intake & Output 03/31/21 04/01/21 04/01/21 18:59 06:59 18:59 Other: Weight 94.6 kg [place] Weight in Grams 44390 Weight 94.6 kg Body Mass Index 39.4 - Constitutional Present: no acute distress - Routine HEENT Exam Head: Present: normal inspection - Routine Neck Exam Present: full ROM - Routine Respiratory Exam Present: CTAB - Routine Cardiovascular Exam Cardiovascular: Present: RRR, S1, S2 - Routine Abdominal Exam Present: soft, nontender - Routine Rectal Exam Patient deferred: digital exam - Routine Extremities Exam Present: nontender - Routine Back/Spine/Pelvis Exam Back/Spine: Present: full ROM - Routine Skin Exam Present: intact - Routine Neurological Exam Present: alert, oriented X3 - Routine Psychiatric Exam Present: normal affect Data - Labs CBC & Chem 7: 09/29/20 11:33 09/29/20 11:33 Labs: 09/29/20 11:33 CMP [Comprehensive Met. Panel] Routine Complete Blood Count Auto Diff Routine Laboratory Last Values WBC 6.7 X10*3/uL (4.8-10.8) 09/29/20 11:33 RBC 4.78 X10*6/uL (4.20-5.50) 09/29/20 11:33 Hgb 13.5 g/dl (12.0-16.0) 09/29/20 11:33 Hct 43.6 % (37-47) 09/29/20 11:33 MCV 91.2 fL (80-98) 09/29/20 11:33 MCH 28.2 pg (27.0-33.0) 09/29/20 11:33 MCHC 31.0 g/dl (31.0-35.0) 09/29/20 11:33 RDW 13.0 % (11.0-16.0) 09/29/20 11:33 Plt Count 263 X10*3/uL (160-400) 09/29/20 11:33 MPV 9.8 fL (9.4-12.3) 09/29/20 11:33 Immature Gran % (Auto) 0.1 % (0.0-0.4) 09/29/20 11:33 Neut % (Auto) 71.4 % (45-73) 09/29/20 11:33 Lymph % (Auto) 19.0 % (20-40) L 09/29/20 11:33 [place] % (Auto) 7.9 % (2-11) 09/29/20 11:33 Eos % (Auto) 1.2 % (0-4) 09/29/20 11:33 Baso % (Auto) 0.4 % (0-2) 09/29/20 11:33 Lymph # (Auto) 1.3 X10*3/uL (1.2-4.9) 09/29/20 11:33 [place] # (Auto) 0.5 X10*3/uL (0.1-1.2) 09/29/20 11:33 Eos # (Auto) 0.1 X10*3/uL (0.0-0.4) 09/29/20 11:33 Baso # (Auto) 0.0 X10*3/uL (0.0-0.2) 09/29/20 11:33 Abs Immat Gran (auto) 0.01 X10*3/uL (0.00-0.03) 09/29/20 11:33 Absolute Neuts (auto) 4.8 X10*3/uL (2.0-8.3) 09/29/20 11:33 Absolute Nucleated RBC 0.000 X10*3/uL (0.0-0.012) 09/29/20 11:33 Nucleated RBC % (auto) 0.0 /100WBC (0.0-0.2) 09/29/20 11:33 Sodium 139 mmol/L (135-145) 09/29/20 11:33 Potassium 4.8 mmol/l (3.3-5.1) 09/29/20 11:33 Chloride 104 mmol/L (96-108) 09/29/20 11:33 Carbon Dioxide 30 mmol/L (22-29) H 09/29/20 11:33 Anion Gap 10 (12-20) L 09/29/20 11:33 BUN 16 mg/dL (9-16) 09/29/20 11:33 Creatinine 0.72 mg/dL (0.5-1.4) 09/29/20 11:33 Estim Creat Clear Calc 86.8 09/29/20 11:33 Estimated GFR > 60 09/29/20 11:33 Random Glucose 93 mg/dL (60-115) 09/29/20 11:33 Calcium 9.3 mg/dL (8.4-10.2) 09/29/20 11:33 Total Bilirubin 0.4 mg/dL (0.0-1.0) 09/29/20 11:33 AST 23 U/L (5-31) 09/29/20 11:33 ALT 18 U/L (0-31) 09/29/20 11:33 Alkaline Phosphatase 74 U/L (39-117) 09/29/20 11:33 Total Protein 6.9 g/dL (6.5-8.0) 09/29/20 11:33 Albumin 4.0 g/dL (3.5-5.0) 09/29/20 11:33 Progress Note: A/P (1) Ductal carcinoma in situ (DCIS) of right breast Status: Resolved Assessment and plan: This is a pleasant 60-year-old lady with history of right breast DCIS, intermediate to high nuclear grade with areas of focal atypical hyperplasia. Stage pTis. Completed adjuvant radiation therapy 05/16. She was on tamoxifen from 02/15/2014 to 08/19. It had to be stopped because of postmenopausal vaginal bleeding. Endometrial biopsy was benign. She started letrozole 2.5 mg daily 11/20. She completed 5 years of adjuvant hormonal therapy. Stopped on 03/31/2020. She is clinically doing well. She was advised to continue with yearly mammogram, her recent 1 in March 2021 was normal. Her blood work from January 2021 was normal. She will now follow up with her PCP as scheduled. - Time Spent With Patient 15 - 24 minutes
--- NOTE | 2021-04-01 09:30 | MHC.HEMONCMA ---
Patient came in for a follow up, states she is doing good. Clinical summary was reviewed and updated. Patient had labs, she does not need to follow up further.
--- NOTE | 2022-01-28 12:59 | MHC.HEMONCSW ---
ON March, PATIENT AGREED SHE NO LONGER REQUIRED FOLLOW UP IN ONCOLOGY.
== END | disposition home or self-care (01) ==
LOC: HO.ONC 09-29 10:39
PROVIDERS: PCP Family Medicine; Visit Provider Internal Medicine Medical Oncology
DX: Z86.000 Personal history of in-situ neoplasm of breast (principal); Z92.3 Personal history of irradiation
CPT/HCPCS: 36415; 80053; 85025; 99213; 99214

== ENCOUNTER 2024-11-13 08:09 | Outpatient (REF) | payer OTHER, SELFPAY ==
--- NOTE | 2024-11-13 08:11 | EMG_ITS ---
STUDY: EMG nerve conduction study. FINDINGS: This is a bilateral hand study. Bilateral median and ulnar motor and sensory studies were performed. Bilateral radial sensory studies were performed and paraspinal muscles were tested with a needle. IMPRESSION: 1. [id number]-[id number] bilateral median neuropathy across carpal tunnel. 2. 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 MD MITCHELL Huggins/JEISON / [id number]
== END 2024-11-13 08:10 | disposition home or self-care (01) ==
LOC: HO.NEURO 08:09
PROVIDERS: PCP Family Medicine; Visit Provider Family Medicine
DX: R20.2 Paresthesia of skin (principal)
CPT/HCPCS: 95886; 95911

== ENCOUNTER 2024-11-30 07:42 | Outpatient (REF) | payer OTHER, SELFPAY ==
--- NOTE | ~2024-11-30 | US_ITS ---
EXAMINATION: US ABDOMEN HISTORY: f/u fatty liver TECHNIQUE: Real-time grayscale ultrasound imaging of the abdomen was performed and images were reviewed. COMPARISON: Comparison is made with the prior examination dated 03/07/2019. FINDINGS: Liver: The right lobe of the liver measures 16.5 cm in size. The left lobe of the liver measures 11.4 cm in size. The liver demonstrates increased echotexture, consistent with steatosis. No focal mass or intrahepatic biliary ductal dilatation is identified. Gallbladder and biliary tree: The gallbladder is unremarkable, without evidence of calculi, wall thickening, or pericholecystic fluid. There is no sonographic Rico sign. The common bile duct is normal in caliber measuring 6 mm. Kidneys: The right kidney measures 10.8 cm in length. The left kidney measures 10.4 cm in length. The kidneys are unremarkable, without evidence of masses, hydronephrosis, or calculi. Pancreas: The pancreatic head, neck, and body are unremarkable. The pancreatic tail is obscured by bowel gas. Spleen: The spleen is normal in size and contour, measuring 7.9 cm in length. Abdominal aorta and inferior vena cava: The visualized portions of the abdominal aorta and inferior vena cava are normal in caliber. There is no free fluid in the abdomen. US/US abdomen complete IMPRESSION: Hepatomegaly and hepatic steatosis. Otherwise unremarkable abdominal ultrasound. Electronically signed by: Maulik Mcknight MD 11/30/2024 08:22 AM [facility]
--- OUTSIDE RECORDS SUMMARY | 2024-11-30 07:45 | XMS_ITS | Encounter Summary ---
Author Organization [email or web address] Address [address] [facility] [address] [place] [address] Care Team Providers Care Shoe Parts Molder Name Role Phone RoxannaAnushka lara Primary Care Provider + [phone] Reason for Visit * Reason Comments Med Refill Encounter Details Date Type Department Care Team (Late st Contact Info) Description 03/19/[address] [facility] MEDICINE [address] [place] [address] Janine Pulido MD [address] [place] [address] Chronic right shoulder pain Social History Tobacco Use Types Packs/Day Years Used Date Smoking Tobacco: Never Passive Smoke Exposure: Never Smokeless Tobacco: Never Alcohol Use Standard Drinks/Week Comments Never 0 (1 standard drink = 0.6 oz pur e alcohol) Depression Answer Date Recorded Patient Health Questionnaire-9 Score 0 12/09/2022 Housing Stability Answer Date Recorded What is your housing situation today? I have moe hall 02/10/[address] you li ve. Do you have problems with any of the following? None of the above 02/10/2024 Food Insecurity Answer Date Recorded Within the past 12 months, y ou worried that your food would run out before you got money to buy more: Never True 02/10/2024 Within the past 12 months,th e food you bought just didn't last and you didn't have enough money to get more: Never True 07/2024 Transportation Answer Date Recorded In the past 12 months, has l ack of transportation kept you from medical appts, meetings, work or from getting things needed for daily living? No 02/10/2024 Utilities Answer Date Recorded In the past 12 months, has t he electric, gas, oil or water company threatened to shut off services in your home? No 02/10/2024 Depression Answer Date Recorded Patient Health Questionnaire-2 Score 0 12/09/2022 Comments Unknown Sex and Gender Information Value Date Recorded Sex Assigned at Female 08/02/2022 10:14 AM EDT Legal Sex Female 10:14 AM EDT Gender Identity Female 08/02/2022 10:14 AM EDT Sexual Orientation Straight 08/02/2022 10 :14 AM EDT documented as of this encounter Plan of Treatment Upcoming Encounters Date Type Department Care Team (Late st Contact Info) Description 12/25/2024 9:45 AM EDT Office Visit [facility] MEDICINE [address] [place] [address] 02/13/2025 9:00 AM EDT Office Visit [facility] OPTOMETRY [address] [place] [address] Fuad, Karon, OD [address] [place] [address] documented as of this encounter Visit Diagnoses Diagnosis Chronic right shoulder pain Pain in joint, shoulder region documented in this encounter Additional Health Concerns Assessment Noted Time PHQ-9 Depression Total Score: 0 12/10/19 23 10:17 AM EST documented as of this encounter Care Teams Shoe Parts Molder Relationship Specialty Start Date End Date Anushka Figueredo DO [address] [place] [address] PCP - General Family Medicine 10/03/18 documented as of this encounter
--- OUTSIDE RECORDS SUMMARY | 2024-11-30 07:45 | XMS_ITS | Encounter Summary ---
Author Organization [employer] Address [address] [place] [address] [address] [place] [address] Care Team Providers Care Loom Starter Name Role Phone LorenaAnushka mcqueen Primary Care Provider [phone] Reason for Visit * Reason Onset Date Comments Med Refill 09/19/2024 Encounter Details Date Type Department Care Team ([facility] st Contact Info) Description 09/19/2024 Refill [facility] MEDICINE [address] [place] [address] Janine Ley MD [address] [place] [address] Social History Tobacco Use Types Packs/Day Years Used Date Smoking Tobacco: Never Passive Smoke Exposure: Never Smokeless Tobacco: Never Alcohol Use Standard Drinks/Week Comments Never 0 (1 standard drink = 0.6 oz pur e alcohol) Depression Answer Date Recorded Patient Health Questionnaire-9 Score 4 07/24/2024 Patient Health Questionnaire-9 Score 4 07/24/2024 Last PHQ-9: Questionnaire Data Not on file 1 Housing Stability Answer Date Recorded What is your housing situation today? I have moeginger hall 02/10/[address] you [...] Date Recorded Patient Health Questionnaire-2 Score 0 07/24/2024 Internet Access Answer Date Recorded Internet Access Q1 Yes 07/03/2024 Internet Access Q2 Not on file 07/03/2024 Comments Unknown Sex and Gender Information Value [...] Description 12/25/2024 9:45 AM EDT Office Visit [facility] MEDICINE [address] [place] [address] 02/13/2025 9:00 AM EDT Office Visit [facility] OPTOMETRY [address] [place] [address] Karon Merida, OD [address] [place] [address] documented as of this encounter Visit Diagnoses Not on filedocumented in this encounter Additional Health Concerns Assessment Noted Time PHQ-9 Depression Total Score: 4 07/24/20 24 9:07 AM EDT documented as of this encounter Care Teams Loom Starter Relationship Specialty Start Date End Date Anushka Figueredo DO [address] [place] [address] PCP - General Family Medicine 10/03/18 documented as of this encounter
--- OUTSIDE RECORDS SUMMARY | 2024-11-30 07:45 | XMS_ITS | Encounter Summary ---
Author Organization [employer] Address [address] [facility] [address] [place] [address] Care Team Providers Care Customs Examiner Name Role Phone Anushka Figueredo DO Primary Care Provider [phone] Reason for Visit * Reason Comments Hypertension Encounter Details Date Type Department Care Team (Latest Contact Info) Description 07/24/2024 9:00 AM EDT Office Visit [facility] MEDICINE [address] [place] [address] Anushka Figueredo DO [address] [place] [address] Essential hypertension (Primary Dx); Hypothyroidism (acquired); Fatty liver; Pituitary macroadenoma (CMS/HCC); Chronic daily headache; History of ductal carcinoma in situ of breast; History of endometrial adenocarcinoma (CMS/HCC); Chronic pain of both knees; Chronic left shoulder pain; Healthcare maintenance Social History Tobacco Use Types Packs/Day Years Used Date Smoking Tobacco: Never Passive Smoke Exposure: Never Smokeless Tobacco: Never Tobacco Cessation:Counseling Given: Not Answered Alcohol Use Standard Drinks/Week Comments Never 0 [...] AM EDT documented as of this encounter Last Filed Vital Signs Vital Sign Reading Time Taken Comments Blood Pressure 138/82 07/24/2024 9:36 AM EDT Pulse 60 07/24/2024 9:05 AM EDT Temperature 36.2 ??C (97.2 ??F) 07/24/2024 9:05 AM ED T Respiratory Rate 17 07/24/2024 9:05 AM EDT Oxygen Saturation - - Inhaled Oxygen Concentration - - Weight 104 kg (229 lb) 07/24/2024 9:05 AM EDT Height 154.9 cm (5' 1 ) 07/24/2024 9:05 AM EDT Body Mass Index 43.27 07/24/2024 9:05 AM EDT documented in this encounter Progress Notes * Anushka Figueredo, - 07/24/2024 9:00 AM EDT SUBJECTIVE: Gretel Bowie is a 63 y.o. year old female who presents for follow up. HPI She saw Dr. Anthony yesterday and was told that there was nothing else that he could do. He had given her ajovy injections to try to prevent the headaches but they did not help. She still gets pounding, throbbing headaches that last all day and all night. She gets a headache every day, but some days the pressure is worse. She has appt in [place] with new neurologist in Oct. She says that she tried the other medication which made her too drowsy. She says that opiates don't do anything for headaches. She has not had visit with endo since the end of last year after her MRI which was stable. She was advised to see neurology for her headaches. She decided not to do surgery as NS told her there was a10% risk of complications and no guarantee that her headaches would go away. She was scheduled for and appt with DISASTER RECOVERY ANALYST in December but did not go to the appt. She wants to see a different provider. Review of Systems Constitutional: Negative for chills and fever. Respiratory: Negative for shortness of breath. Cardiovascular: Negative for chest pain and leg swelling. Gastrointestinal: Negative for abdominal pain, diarrhea and vomiting. Neurological: Positive for headaches. Patient Active Problem List Diagnosis Hypothyroidism (acquired) History of endometrial adenocarcinoma (CMS/HCC) Essential hypertension History of COVID-19 Status post total abdominal hysterectomy and bilateral salpingo-oophorectomy Status post total right knee replacement History of ductal carcinoma in situ of breast Mild intermittent asthma Morbid obesity with BMI of 45.0-49.9, adult (CMS/HCC) Osteoarthritis Pituitary macroadenoma (CMS/HCC) Pituitary apoplexy (CMS/HCC) Fatty liver Varicose veins of lower extremity History of positive PPD S/P laparoscopic sleeve gastrectomy Chronic left shoulder pain Chronic pain of both knees Healthcare maintenance Status post total left knee replacement Status post revision of total knee replacement, left Complete edentulism Overactive bladder Allergic rhinitis Long-term current use of opiate analgesic Chronic pain syndrome History of breast cancer Allergies Allergen Reactions Wound Dressing Adhesive Wound Dressings OBJECTIVE Vitals: 07/24/24 0905 07/24/24 0936 BP: (!) 147/72 138/82 BP Location: Right arm Left arm Patient Position: Sitting Sitting BP Cuff Size: Large adult Large adult Pulse: 60 Resp: 17 Temp: 97.2 ??F (36.2 ??C) TempSrc: Temporal Weight: 229 lb (104 kg) Height: 5' 1 (1.549 m) Physical Exam Constitutional: General: She is not in acute distress. Appearance: Normal appearance. Cardiovascular: Rate and Rhythm: Normal rate and regular rhythm. Heart sounds: Normal heart sounds. No murmur heard. Pulmonary: Effort: Pulmonary effort is normal. Breath sounds: Normal breath sounds. No wheezing or rhonchi. Musculoskeletal: Cervical back: Normal range of motion. No tenderness. Lymphadenopathy: Cervical: No cervical adenopathy. Neurological: General: No focal deficit present. Mental Status: She is alert and oriented to person, place, and time. Cranial Nerves: No cranial nerve deficit. Motor: No weakness. Gait: Gait normal. Psychiatric: Mood and Affect: Mood normal. ASSESSMENT/PLAN Diagnoses and all orders for this visit: Essential hypertension BP controlled -cont norvasc and lisinopril daily -Cr, GFR, and urine microalbumin wnl February 2024 -s/p optho eval Dec 2023 at [facility] for annual f/u -f/u with retinal specialist prn Hypothyroidism (acquired) TFTs nml February 2024 -cont off levothyroxine -will cont to monitor -f/u with endo as scheduled Fatty liver -AFP and LFTs nml February 2024 -abd US with echogenic liver, no focal lesion MAR 2019, repeat next visit Pituitary macroadenoma (CMS/HCC) -MRI brain with lobulated mass within the sella turcica with invasion of the cavernous sinus SEP 2021 -MRI brain with similar pituitary macroadenoma with right cavernous sinus invasion and extension into the posterior aspect of the sphenoid sinus Jul 2023 -f/u with endo as scheduled -f/u with NS prn Chronic daily headache ? Related to pituitary macroadenoma -increase amitriptyline to 50mg nightly -trial magnesium oxide BID -cont gabapentin TID -keep 2nd opinion neurology eval as scheduled -advised rtc if sx worsen History of ductal carcinoma in situ of breast s/p excision January 2014 and RT March to May 2014 -competed tobin March 2020 -mammo BIRADS 04 May 2024 -f/u with Dr. Fleming prn History of endometrial adenocarcinoma (CMS/HCC) s/p RA TLH BSO SLN with grade 1, stage 1a endometrial adenocarcinoma December 2017 -encouraged r/s GYNONC eval with different provider Chronic pain of both knees s/p R TKA SEP 2021 s/p revision of left TKR Oct 2020 -cont baclofen for mm spasm -cont tylenol and naproxen as needed -cont oxycodone for pain control -cont HEP -f/u with ortho prn Chronic left shoulder pain -shoulder x-rays with moderate arthrosis Dec 2019 -cont percocet as needed -cont baclofen to help with mm spasms -f/u with ortho prn Healthcare maintenance -she declines flu vaccine -s/p declines COVID vaccine -she declines Tdap -offer PCV20 next visit -encouraged shingrix vaccine -encouraged RSV vaccine -Hep A immune -s/p hysterectomy Dec 2017 -mammo BIRADS 04 May 2024 -DEXA wnl Oct 2019 -colonoscopy with diverticulosis and hyperplastic polyps Nov 2014, repeat next visit -A1c 5.6, LDL 101 February 2024 -STI/HIV screen negative January 2021 F/U with me in 4 mos or sooner prn Current Outpatient Medications: acetaminophen (Tylenol 8 Hour) 650 MG ER tablet, TAKE 1 TABLET BY MOUTH EVERY 6 HOURS NEEDED FORPAIN, Disp: 60 tablet, Rfl: 0 albuterol (2.5 MG/3ML) 0.083% nebulizer solution, Take 3 mL by nebulization if needed in the morning, at noon, in the evening, and at bedtime., Disp: , Rfl: albuterol 108 (90 Base) MCG/ACT inhaler, Inhale 2 puffs every 4 (four) hours if needed., Disp: , Rfl: amitriptyline (Elavil) 50 MG tablet, Take 1 tablet (50 mg) by mouth at bedtime., Disp: 30 tablet, Rfl: 5 amLODIPine (Norvasc) 10 MG tablet, TAKE 1 TABLET BY MOUTH EVERY MORNING, Disp: 90 tablet, Rfl: 3 baclofen (Lioresal) 10 MG tablet, Take 1 tablet by mouth if needed in the morning, at noon, and at bedtime for muscle spasms., Disp: , Rfl: Blood Pressure kit, 1 each 1 (one) time per week., Disp: 1 kit, Rfl: 0 cholecalciferol (Vitamin D-3) 50 MCG (2000 UT) capsule, Take 1 capsule (50 mcg) by mouth Once per day., Disp: 30 capsule, Rfl: 11 Diclofenac Sodium 1 % cream, Apply 2 g topically if needed in the morning and at bedtime (pain)., Disp: 120 g, Rfl: 3 divalproex (Depakote ER) 250 MG 24 hr tablet, Take 250 mg by mouth Once per day., Disp: , Rfl: fluticasone (Flonase) 50 MCG/ACT nasal spray, USE 2 SPRAYS IN EACH NOSTRIL EVERY DAY, Disp: 16 g, Rfl: 5 gabapentin (Neurontin) 300 MG capsule, TAKE 1 CAPSULE BY MOUTH THREE TIMES DAILY IN THE MORNING, EVENING, AND BEDTIME, Disp: 90 capsule, Rfl: 3 hydrocortisone 2.5 % cream, Apply topically if needed in the morning and at bedtime (itching)., Disp: 28 g, Rfl: 1 lisinopril 30 MG tablet, TAKE 1 TABLET BY MOUTH EVERY MORNING, Disp: 90 tablet, Rfl: 3 loratadine (Claritin) 10 MG tablet, TAKE 1 TABLET BY MOUTH EVERY MORNING, Disp: 30 tablet, Rfl: 5 Magnesium 400 MG capsule, Take 400 mg by mouth 2 times daily., Disp: 60 capsule, Rfl: 11 methocarbamol (Robaxin) 750 MG tablet, Take 1 tablet by mouth if needed in the morning and at bedtime for muscle spasms., Disp: , Rfl: Multiple Vitamins-Minerals (PreserVision AREDS 2) capsule, TAKE 1 CAPSULE BY MOUTH TWICE DAILY IN THE MORNING AND IN THE EVENING, Disp: 180 capsule, Rfl: 3 naloxone (Narcan) 4 mg/0.1 mL nasal spray, Administer 1 spray (4 mg) into affected nostril(s) if needed for opioid reversal. spray 0.1 milliliter by intranasal route in 1 nostril may repeat dose every 2-3 minutes as needed alternating nostrils with each dose, Disp: 2 each, Rfl: 2 nystatin (Mycostatin) 076087 UNIT/GM powder, Apply topically every 12 (twelve) hours., Disp: , Rfl: oxybutynin XL (Ditropan-XL) 10 MG 24 hr tablet, TAKE 1 TABLET BY MOUTH EVERY MORNING DO NOT BREAK, CRUSH, DISSOLVE OR CHEW, Disp: 90 tablet, Rfl: 1 oxyCODONE (Roxicodone) 5 MG immediate release tablet, TAKE 1 TABLET BY MOUTH EVERY 6 HOURS NEEDED FOR SEVERE PAIN FOR UP TO 28 DAYS, Disp: 112 tablet, Rfl: 0 propranolol (Inderal) 20 MG tablet, Take 20 mg by mouth 2 times daily., Disp: , Rfl: senna (Senokot) 8.6 MG tablet, TAKE 2 TABLETS BY MOUTH ONCE DAILY IN THE MORNING NEEDED FOR CONSTIPATION, Disp: 180 tablet, Rfl: 3 terbinafine (LamISIL) 250 MG tablet, Take 250 mg by mouth in the morning., Disp: , Rfl: topiramate (Topamax) 25 MG tablet, Take 25 mg by mouth at bedtime., Disp: , Rfl: documented in this encounter Plan of Treatment Upcoming Encounters Date Type Department Care Team (Late st Contact Info) Description 12/25/2024 9:45 AM EDT Office Visit [facility] MEDICINE [address] [place] [address] 02/13/2025 9:00 AM EDT Office Visit [facility] OPTOMETRY [address] [place] [address] Fuad, Karon, OD [address] [place] [address] documented as of this encounter Visit Diagnoses Diagnosis Essential hypertension- Primary Unspecified essential hypertension Hypothyroidism (acquired) Unspecified hypothyroidism Fatty liver Other chronic nonalcoholic liver disease Pituitary macroadenoma (CMS/HCC) Benign neoplasm of pituitary gland and craniopharyngeal duct (pouch) Chronic daily headache Headache History of ductal carcinoma in situ of breast History of endometrial adenocarcinoma (CMS/HCC) Chronic pain of both knees Chronic left shoulder pain Pain in joint, shoulder region Healthcare maintenance documented in this encounter Additional Health Concerns Assessment Noted Time PHQ-9 Depression Total Score: 4 07/24/20 24 9:07 AM EDT documented as of this encounter Care Teams Customs Examiner Relationship Specialty Start Date End Date Anushka Figueredo DO [address] [place] [address] PCP - General Family Medicine 10/03/18 documented as of this encounter
--- OUTSIDE RECORDS SUMMARY | 2024-11-30 07:45 | XMS_ITS | Encounter Summary ---
Author Organization [employer] Address [address] [facility] 7t [place] [address] Care Team Providers Care Concert Manager Name Role Phone LorenaAnushka mcqueen Primary Care Provider + [phone] Reason for Visit * Reason Comments Med Refill Encounter Details Date Type Department Care Team (Late st Contact Info) Description 08/03/2023 Refill [facility] MEDICINE [address] [place] [address] Janine Pulido MD [address] [place] [address] Dry eyes Social History Tobacco Use Types Packs/Day Years Used Date Smoking Tobacco: Never Passive Smoke Exposure: Never Smokeless Tobacco: Never Alcohol Use Standard Drinks/Week Comments Never 0 (1 standard drink = 0.6 oz pur e alcohol) Depression Answer Date Recorded Patient Health Questionnaire-9 Score 0 12/09/2022 Housing Stability Answer Date Recorded What is your housing situation today? I have moe hall 08/01/[address] you li ve. Do you have problems with any of the following? None of the above 08/01/2023 Food Insecurity Answer Date Recorded Within the past 12 months, y ou worried that your food would run out before you got money to buy more: Never True 08/01/2023 Within the past 12 months,th e food you bought just didn't last and you didn't have enough money to get more: Never True Transportation Answer Date Recorded In the past 12 months, has l ack of transportation kept you from medical appts, meetings, work or from getting things needed for daily living? No 08/01/2023 Utilities Answer Date Recorded In the past 12 months, has t he electric, gas, oil or water company threatened to shut off services in your home? No 08/01/2023 Depression Answer Date Recorded Patient Health Questionnaire-2 [...] Description 12/25/2024 9:45 AM EDT Office Visit [facility] MEDICINE [address] [place] [address] 02/13/2025 9:00 AM EDT Office Visit [facility] OPTOMETRY [address] [place] [address] Fuad, Karon, OD [address] [place] [address] documented as of this encounter Visit Diagnoses Diagnosis Dry eyes Unspecified tear film insufficiency documented in this encounter Additional Health Concerns Assessment Noted Time PHQ-9 Depression Total Score: 0 12/10/19 23 10:17 AM EST documented as of this encounter Care Teams Concert Manager Relationship Specialty Start Date End Date Anushka Figueredo DO [address] [place] [address] PCP - General Family Medicine 10/03/18 documented as of this encounter
--- OUTSIDE RECORDS SUMMARY | 2024-11-30 07:45 | XMS_ITS | Encounter Summary ---
Author Organization [employer] Address [address] [place] [address] 7t [place] [address] Care Team Providers Care Otr Refrigerated Cdl Truck Driver Name Role Phone Anushka Figueredo DO Primary Care Provider [phone]- [phone] Reason for Visit * Reason Onset Date Comments Nurse Triage 08/14/2024 Encounter Details Date Type Department Care Team ([facility] st Contact Info) Description 08/14/2024 Telephone [facility] MEDICINE [address] [place] [address] Anushka Figueredo DO [address] [place] [address] Nurse Triage Social History Tobacco Use Types Packs/Day Years [...] AM EDT documented as of this encounter Miscellaneous Notes * Telephone Encounter - Ivon Rajput RN - 08/14/2024 12:22 PM EST Triage call Pt reports headache for 3 years. Pt reports recent dx of migraine headaches and has been taking oxycodone, tylenol and recently magnesium 400mg which was started 07/24/24. Pt reports the magnesium has not helped for the last 2 weeks. Pt would like to see PCP. ASK apt with PCP 08/17/24 @1015am. Pt insurance is verified as active prior to booking. Pt agrees with disposition. Protocol Used: Headache (Adult) Protocol-Based Disposition: See in Office or Video Visit within 3 Days Video visit not offered Positive Triage Question: * Mild - Moderate headache present > 3 days (72 hours) * All higher-acuity triage questions were negative Care Advice Discussed: * Pain Medicines * Reasons To Call Back - Severe headache lasts over 2 hours after pain medicine - Headache lasts over 72 hours - Stiff neck occurs (can't touch chin to chest) - You become worse * Telephone Encounter - Juanita Leach - 08/14/2024 11:39 AM EST Symptom: Headache Outcome: Transfer to a nurse or provider NOW! Reason: Sudden worst headache of life now The caller accepted this outcome. documented in this encounter Plan of Treatment Upcoming Encounters Date Type Department Care Team (Late st Contact Info) Description 12/25/2024 9:45 AM EDT Office Visit [facility] MEDICINE [address] [place] [address] 02/13/2025 9:00 AM EDT Office Visit [facility] OPTOMETRY [address] [place] [address] Karon Merida, OD [address] [place] [address] documented as of this encounter Visit Diagnoses Not on filedocumented in this encounter Additional Health Concerns Assessment Noted Time PHQ-9 Depression Total Score: 4 07/24/20 24 9:07 AM EDT documented as of this encounter Care Teams Otr Refrigerated Cdl Truck Driver Relationship Specialty Start Date End Date Anushka Figueredo DO [address] [place] [address] PCP - General Family Medicine 10/03/18 documented as of this encounter
--- OUTSIDE RECORDS SUMMARY | 2024-11-30 07:45 | XMS_ITS | Encounter Summary ---
Author Organization [employer] Address [address] [place] [address] [address]t [place] [address] Care Team Providers Care Pay Agent Name Role Phone Anushka Figueredo DO Primary Care Provider [phone] Reason for Visit * Reason Onset Date Comments Med Refill 09/25/2024 Encounter Details Date Type Department Care Team ([facility] st Contact Info) Description 09/25/2024 Refill [facility] MEDICINE [address] [place] [address] Anushka Figueredo DO [address] [place] [address] Chronic pain of both knees Social History Tobacco Use Types Packs/Day Years [...] Description 12/25/2024 9:45 AM EDT Office Visit [facility] MEDICINE [address] [place] [address] 02/13/2025 9:00 AM EDT Office Visit [facility] OPTOMETRY [address] [place] [address] Karon Merida, OD [address] [place] [address] documented as of this encounter Visit Diagnoses Diagnosis Chronic pain of both knees documented in this encounter Additional Health Concerns Assessment Noted Time PHQ-9 Depression Total Score: 4 07/24/20 24 9:07 AM EDT documented as of this encounter Care Teams Pay Agent Relationship Specialty Start Date End Date Anushka Figueredo DO [address] [place] [address] PCP - General Family Medicine 10/03/18 documented as of this encounter
--- OUTSIDE RECORDS SUMMARY | 2024-11-30 07:45 | XMS_ITS | Encounter Summary ---
Author Organization [employer] Address [address] [facility] [address]t [place] [address] Care Team Providers Care Rubber Engraver Name Role Phone Anushka Figueredo DO Primary Care Provider + [phone] Reason for Visit * Reason Comments Med Refill Encounter Details Date Type Department Care Team (Late st Contact Info) Description 08/04/2023 Refill [facility] MEDICINE [address] [place] [address] Anushka Figueredo DO [address] [place] [address] Urinary incontinence, unspecified type Social History Tobacco Use Types Packs/Day Years [...] Description 12/25/2024 9:45 AM EDT Office Visit [facility] MEDICINE [address] [place] [address] 02/13/2025 9:00 AM EDT Office Visit [facility] OPTOMETRY [address] [place] [address] Fuad, Karon, OD [address] [place] [address] documented as of this encounter Visit Diagnoses Diagnosis Urinary incontinence, unspecified type documented in this encounter Additional Health Concerns Assessment Noted Time PHQ-9 Depression Total Score: 0 12/10/19 23 10:17 AM EST documented as of this encounter Care Teams Rubber Engraver Relationship Specialty Start Date End Date Anushka Figueredo DO [address] [place] [address] PCP - General Family Medicine 10/03/18 documented as of this encounter
--- OUTSIDE RECORDS SUMMARY | 2024-11-30 07:46 | XMS_ITS | Encounter Summary ---
Author Organization [employer] Address [address] [facility] [address] [place] [address] Care Team Providers Care Blender/Braze Applicator Name Role Phone Anushka Figueredo DO Primary Care Provider [phone] Reason for Visit * Reason Comments Med Refill Encounter Details Date Type Department Care Team (Late st Contact Info) Description 12/07/2022 Refill [facility] [address] [place] [address] Anushka Figueredo DO [address] [facility] [place] [address] Chronic pain of both knees Social History Tobacco Use Types Packs/Day Years Used Date Smoking Tobacco: Never Passive Smoke Exposure: Never Smokeless Tobacco: Never Depression Answer Date Recorded Patient Health Questionnaire-9 Score 0 12/09/2022 Depression Answer Date Recorded Patient Health Questionnaire-2 Score 0 12/09/2022 Comments Unknown Sex and Gender Information Value Date Recorded Sex Assigned at Female 08/02/2022 10:14 AM EDT Legal Sex Female 10:14 AM EDT Gender Identity Female 08/02/2022 10:14 AM EDT Sexual Orientation Straight 08/02/2022 10 :14 AM EDT COVID-19 Exposure Response Date Recorded In the last 10 days, have yo u been in contact with someone who was confirmed or suspected to have Coronavirus/COVID-19? No / Unsure 12/09/2022 9:57 AM EST documented as of this encounter Miscellaneous Notes * Telephone Encounter - Francie Lassiter - 12/15/2022 2:07 PM EDT pt need breezy. from 12/14/2022 documented in this encounter Plan of Treatment Upcoming Encounters Date Type Department Care Team (Late st Contact Info) Description 12/25/2024 9:45 AM EDT Office Visit [facility] MEDICINE [address] [place] [address] 02/13/2025 9:00 AM EDT Office Visit [facility] OPTOMETRY [address] [place] [address] Fuad, Karon, OD [address] [place] [address] documented as of this encounter Visit Diagnoses Diagnosis Chronic pain of both knees documented in this encounter Additional Health Concerns Assessment Noted Time PHQ-9 Depression Total Score: 0 12/02/19 23 9:55 AM EST documented as of this encounter Care Teams Blender/Braze Applicator Relationship Specialty Start Date End Date Anushka Figueredo DO [address] [place] [address] PCP - General Family Medicine 10/03/18 documented as of this encounter
--- OUTSIDE RECORDS SUMMARY | 2024-11-30 07:46 | XMS_ITS | Encounter Summary ---
Author Organization [employer] Address [address] [facility] [address]t [place] [address] Care Team Providers Care Wool Hat Finisher Name Role Phone Anushka Figueredo DO Primary Care Provider [phone] Reason for Visit * Reason Comments Med Refill Encounter Details Date Type Department Care Team (Late st Contact Info) Description 11/20/2024 Refill [facility] [address] [place] [address] Anushka Figueredo DO [address] [facility] [place] [address] Chronic pain of both knees Social History [...] Description 12/25/2024 9:45 AM EDT Office Visit [facility] MEDICINE [address] [place] [address] 02/13/2025 9:00 AM EDT Office Visit [facility] OPTOMETRY [address] [place] [address] FuadKaron foss, OD [address] [place] [address] documented as of this encounter Visit Diagnoses Diagnosis Chronic pain of both knees documented in this encounter Additional Health Concerns Assessment Noted Time PHQ-9 Depression Total Score: 4 07/24/20 24 9:07 AM EDT documented as of this encounter Care Teams Wool Hat Finisher Relationship Specialty Start Date End Date Anushka Figueredo DO [address] [place] [address] PCP - General Family Medicine 10/03/18 documented as of this encounter
--- OUTSIDE RECORDS SUMMARY | 2024-11-30 07:46 | XMS_ITS | Encounter Summary ---
Author Organization [employer] Address [address] [facility] 7t [place] [address] Care Team Providers Care Curator Herbarium Name Role Phone Anushka Figueredo DO Primary Care Provider [phone] Encounter Details Date Type Department Care Team ([facility] st Contact Info) Description 11/11/2024 Orders Only [facility] MEDICINE [address] [place] [address] Anushka Figueredo DO [address] [place] [address] Social History Tobacco Use Types Packs/Day Years [...] Description 12/25/2024 9:45 AM EDT Office Visit [facility] MEDICINE [address] [place] [address] 02/13/2025 9:00 AM EDT Office Visit [facility] OPTOMETRY [address] [place] [address] Fuad, Karon, OD [address] [place] [address] documented as of this encounter Visit Diagnoses Not on filedocumented in this encounter Additional Health Concerns Assessment Noted Time PHQ-9 Depression Total Score: 4 07/24/20 24 9:07 AM EDT documented as of this encounter Care Teams Curator Herbarium Relationship Specialty Start Date End Date Anushka Figueredo DO [address] [place] [address] PCP - General Family Medicine 10/03/18 documented as of this encounter
--- OUTSIDE RECORDS SUMMARY | 2024-11-30 07:46 | XMS_ITS | Encounter Summary ---
Author Organization [employer] Address [address] [facility] 7t [place] [address] Care Team Providers Care Senior C Developer Name Role Phone Anushka Figueredo DO Primary Care Provider + [phone] Reason for Visit * Reason Comments Med Refill Encounter Details Date Type Department Care Team (Late st Contact Info) Description 11/23/2024 Refill [facility] MEDICINE [address] [place] [address] Anushka Figueredo DO [address] [place] [address] Social History Tobacco Use Types Packs/Day Years [...] Description 12/25/2024 9:45 AM EDT Office Visit [facility] MEDICINE [address] [place] [address] 02/13/2025 9:00 AM EDT Office Visit [facility] OPTOMETRY [address] [place] [address] Karon Merida, OD [address] [place] [address] documented as of this encounter Visit Diagnoses Not on filedocumented in this encounter Additional Health Concerns Assessment Noted Time PHQ-9 Depression Total Score: 4 07/24/20 24 9:07 AM EDT documented as of this encounter Care Teams Senior C Developer Relationship Specialty Start Date End Date Anushka Figueredo DO [address] [place] [address] PCP - General Family Medicine 10/03/18 documented as of this encounter
--- OUTSIDE RECORDS SUMMARY | 2024-11-30 07:46 | XMS_ITS | Encounter Summary ---
Author Organization [employer] Address [address] [place] [address] [address] [place] [address] Care Team Providers Care Lead Furnace Operator Name Role Phone Anushka Figueredo DO Primary Care Provider [phone] Reason for Visit * Reason Onset Date Comments Durable Medical Equipment 10/24/2024 Encounter Details Date Type Department Care Team ([facility] st Contact Info) Description 10/24/2024 Telephone [facility] MEDICINE [address] [place] [address] Anushka Figueredo DO [address] [place] [address] Durable Medical Equipment Social History Tobacco Use Types Packs/Day Years [...] encounter Miscellaneous Notes * Telephone Encounter - Raymundo Durant - 10/24/2024 3:44 PM EST Tc from pt requesting a Asthma Machine. Pt states that she mentioned this before but instead of getting the Machine she got a Nebulizer. IF any questions contact pt at [phone] documented in this encounter Plan of Treatment Upcoming Encounters Date Type Department Care Team ([facility] st Contact Info) Description 12/25/2024 9:45 AM EDT Office Visit [facility] MEDICINE [address] [place] [address] 02/13/2025 9:00 AM EDT Office Visit [facility] OPTOMETRY [address] [place] [address] Fuad, Karon, OD [address] [place] [address] documented as of this encounter Visit Diagnoses Not on filedocumented in this encounter Additional Health Concerns Assessment Noted Time PHQ-9 Depression Total Score: 4 07/24/20 24 9:07 AM EDT documented as of this encounter Care Teams Lead Furnace Operator Relationship Specialty Start Date End Date Anushka Figueredo DO [address] [place] [address] PCP - General Family Medicine 10/03/18 documented as of this encounter
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
--- OUTSIDE RECORDS SUMMARY | 2024-11-30 07:46 | XMS_ITS | Encounter Summary ---
Author Organization [facility] Address [address] [facility] [address] [place] [address] Care Team Providers Care Barrel Rifler Button Name Role Phone Roxannajane Anushka Primary Care Provider + [phone] Encounter Details Date Type Department Care Team ([facility] st Contact Info) Description 01/12/2024 Orders Only [facility] MEDICINE [address] [place] [address] ProviderSandra MD Social History Tobacco Use Types Packs/Day Years Used Date Smoking Tobacco: Never Passive Smoke Exposure: Never Smokeless Tobacco: Never Alcohol Use Standard Drinks/Week Comments Never 0 (1 standard drink = 0.6 oz pur e alcohol) Depression Answer Date Recorded Patient Health Questionnaire-9 Score 0 12/09/2022 Housing Stability Answer Date Recorded What is your housing situation today? I have [facility] 08/01/[address] you [...] Description 12/25/2024 9:45 AM EDT Office Visit [facility] MEDICINE [address] [place] [address] 02/13/2025 9:00 AM EDT Office Visit [facility] OPTOMETRY [address] [place], [place] [id number] Fuad, Karon, OD [address] [place] [address] documented as of this encounter Procedures Procedure Name Priority Date/Time Associated Diagnosis Comments HM COLONOSCOPY Routine 11/07/2014 3:46 PM EST documented in this encounter Results * Hm Colonoscopy (11/07/2014 3:46 PM EST) us Historical Provider HEALTH MAINTENANCE Final Result documented in this encounter Visit Diagnoses Not on filedocumented in this encounter Additional Health Concerns Assessment Noted Time PHQ-9 Depression Total Score: 0 12/10/19 23 10:17 AM EST documented as of this encounter Care Teams Barrel Rifler Button Relationship Specialty Start Date End Date Anushka Figueredo DO [address] [place] [address] PCP - General Family Medicine 10/03/18 documented as of this encounter
--- OUTSIDE RECORDS SUMMARY | 2024-11-30 07:46 | XMS_ITS | Encounter Summary ---
Author Organization [employer] Address [address] [facility] [address] [place] [address] Care Team Providers Care Structural Steel Painter Name Role Phone Anushka Figueredo DO Primary Care Provider [phone] Encounter Details Date Type Department Care Team ([facility] st Contact Info) Description 10/31/2024 Telephone [facility] MEDICINE [address] [place] [address] Anushka Figueredo DO [address] [place] [address] Social History Tobacco Use Types Packs/Day Years [...] encounter Miscellaneous Notes * Telephone Encounter - Anushka Figueredo DO - 10/31/2024 11:39 AM EST Please initiate rx for new nebulizer machine. Thank you. documented in this encounter Plan of Treatment Upcoming Encounters Date Type Department Care Team (Late st Contact Info) Description 12/25/2024 9:45 AM EDT Office Visit [facility] MEDICINE [address] [place] [address] 02/13/2025 9:00 AM EDT Office Visit [facility] OPTOMETRY [address] [place] [address] Karon Merida, OD [address] [place] [address] documented as of this encounter Visit Diagnoses Not on filedocumented in this encounter Additional Health Concerns Assessment Noted Time PHQ-9 Depression Total Score: 4 07/24/20 24 9:07 AM EDT documented as of this encounter Care Teams Structural Steel Painter Relationship Specialty Start Date End Date Anushka Figueredo DO [address] [place] [address] PCP - General Family Medicine 10/03/18 documented as of this encounter
--- OUTSIDE RECORDS SUMMARY | 2024-11-30 07:46 | XMS_ITS | Encounter Summary ---
Author Organization [employer] Address [address] [facility] [address] [place] [address] Care Team Providers Care Foreign Food Specialty Cook Name Role Phone LorenaAnushka mcqueen Primary Care Provider + [phone] Encounter Details Date Type Department Care Team (Latest Contact Info) Description 10/31/2024 Travel Social History Tobacco Use Types Packs/Day Years [...] 9:45 AM EDT Office Visit [facility] MEDICINE [address] [place] [address] 02/13/2025 9:00 AM EDT Office Visit [facility] OPTOMETRY [address] [place] [address] Fuad, Karon, OD [address] [place] [address] documented as of this encounter Visit Diagnoses Not on filedocumented in this encounter Additional Health Concerns Assessment Noted Time PHQ-9 Depression Total Score: 4 07/24/20 24 9:07 AM EDT documented as of this encounter Care Teams Foreign Food Specialty Cook Relationship Specialty Start Date End Date Anushka Figueredo DO [address] [place] [address] PCP - General Family Medicine 10/03/18 documented as of this encounter
--- OUTSIDE RECORDS SUMMARY | 2024-11-30 07:46 | XMS_ITS | Encounter Summary ---
Author Organization [facility] Address [address] [place] [address] [address] [place] [address] Care Team Providers Care Oyster Bed Worker Name Role Phone Anushka Figueredo DO Primary Care Provider [phone] Encounter Details Date Type Department Care Team (Late st Contact Info) Description 09/10/2022 Telephone [facility] MEDICINE [address] [place] [address] Anushka Figueredo DO [address] [place] [address] Social History Tobacco Use Types Packs/Day Years Used Date Smoking Tobacco: Never Assessed Comments Unknown Sex and Gender Information Value [...] Office Visit [facility] MEDICINE [address] [place] [address] 02/13/2025 9:00 AM EDT Office Visit [facility] OPTOMETRY [address] [place] [address] Fuad, Karon, OD [address] [place] [address] documented as of this encounter Visit Diagnoses Not on filedocumented in this encounter Care Teams Oyster Bed Worker Relationship Specialty Start Date End Date Anushka Figueredo DO [address] [place] [address] PCP - General Family Medicine 10/03/18 documented as of this encounter
--- OUTSIDE RECORDS SUMMARY | 2024-11-30 07:46 | XMS_ITS | Encounter Summary ---
Author Organization [facility] Address [address] [place] [address] Care Team Providers Care Syrup Shed Supervisor Name Role Phone Crista Gaines Unavailable [phone] Anushka Figueredo Primary Care Provider Reason for Referral * MRI/CAT/PET Scan (Routine) - Closed Specialty Diagnoses / Procedures Referred By Kamilah marcial Referred To Contact Diagnoses Benign neoplasm of pituitary gland (HCC) Procedures MRI brain W WO contrast Ej Badillo PA-C Other Referral ID Status Reason Start Date Expiration Date Visits Requested Visits Authorized [id number] Closed Patient Preference 03/03/2022 07/03/2022 1 1 Encounter Details Date Type Department Care Team (Late st Contact Info) Description 12/07/2021 Orders Only [facility] Department of Neurosurgery [address] [place] [address] Ej Badillo PA-C Benign neoplasm of pituitary gland (HCC) (Primary Dx) Social History Tobacco Use Types Packs/Day Years Used Date Smoking Tobacco: Never Smokeless Tobacco: Never Hunger Vital Sign Answer Date Recorded Within the past 12 months, y ou worried that your food would run out before you got the money to buy more. Never true 09/18/20 21 Within the past 12 months, t he food you bought just didn't last and you didn't have money to get more. Never true 09/18/2021 Comments Unknown Sex and Gender Information Value Date Recorded Sex Assigned at Not on file Legal Sex Female 1:34 PM EST Gender Identity Not on file Sexual Orientation Not on file documented as of this encounter Plan of Treatment Scheduled Orders Name Type Priority Associated Diagnoses Orde r Schedule MRI brain W WO contrast Imaging Routine Benign neoplasm of pituitary gland (HCC) Expected: 03/09/2022 (Approximate), Expires: 06/09/2023 documented as of this encounter Visit Diagnoses Diagnosis Benign neoplasm of pituitary gland (HCC)- Primary Benign neoplasm of pituitary gland and craniopharyngeal duct (pouch) documented in this encounter Care Teams Syrup Shed Supervisor Relationship Specialty Start Date End Date Anushka Figueredo [address] [place] [id number] PCP - General 10/30/21 Crista Gaines MBBS [address] [place] [address] [place] [address] Consulting Physician Endocrinology 10/09/21 documented as of this encounter
--- OUTSIDE RECORDS SUMMARY | 2024-11-30 07:46 | XMS_ITS | Encounter Summary ---
Author Organization [facility] Address [address] [place] [address] Care Team Providers Care Cutter V Groove Name Role Phone Pcp, Sara MD Primary Care Provider Crista Hernandez Unavailable Anushka Figueredo Primary Care Provider [phone] Encounter Details Date Type Department Care Team (Late st Contact Info) Description 10/29/2021 Orders Only [facility] Department of Neurosurgery [address] [place] [address] Ratna Gill PA-C [address] [facility] [address] Social History Tobacco Use Types Packs/Day Years [...] on file Sexual Orientation Not on file COVID-19 Exposure Response Date Recorded In the last month, have you been in contact with someone who was confirmed or suspected to have Coronavirus / COVID-19? No / Unsure 10/30/2021 9:11 AM EST documented as of this encounter Plan of Treatment Not on file documented as of this encounter Visit Diagnoses Not on filedocumented in this encounter Care Teams Cutter V Groove Relationship Specialty Start Date End Date PcpSara MD [address] [place] [address] PCP - General Internal Medicine 09/18/21 10/29/21 Anushka Figueredo [address] [place] [id number] PCP - General 10/30/21 Crista Gaines MBBS [address] [place] [address] [facility] [place] [address] Consulting Physician Endocrinology 10/09/21 documented as of this encounter
--- OUTSIDE RECORDS SUMMARY | 2024-11-30 07:46 | XMS_ITS | Encounter Summary ---
Author Organization [employer] Address [address] [facility] 7t [place] [address] Care Team Providers Care Builder Beam Name Role Phone Anushka Figueredo DO Primary Care Provider [phone] Reason for Visit * Reason Onset Date Comments Appointment Request 09/11/2024 Encounter Details Date Type Department Care Team ([facility] st Contact Info) Description 09/11/2024 Telephone [facility] MED[facility]INE [address] [place] [address] Anushka Figueredo DO [address] [place] [address] Appointment Request Social History Tobacco Use Types Packs/Day Years [...] * Telephone Encounter - Raymundo Durant - 09/11/2024 9:02 AM EST Tc from pt requesting to r/s apt for 09/11. Contact pt at [phone] documented in this encounter Plan of Treatment Upcoming Encounters Date Type Department Care Team ([facility] st Contact Info) Description 12/25/2024 9:45 AM EDT Office Visit [facility] MED[facility]INE [address] [place] [address] 02/13/2025 9:00 AM EDT Office Visit [facility] OPTOMETRY [address] [place] [address] Fuad, Karon, OD [address] [place] [address] documented as of this encounter Visit Diagnoses Not on filedocumented in this encounter Additional Health Concerns Assessment Noted Time PHQ-9 Depression Total Score: 4 07/24/20 24 9:07 AM EDT documented as of this encounter Care Teams Builder Beam Relationship Specialty Start Date End Date Anushka Figueredo DO [address] [place] [address] PCP - General Family Medicine 10/03/18 documented as of this encounter
--- OUTSIDE RECORDS SUMMARY | 2024-11-30 07:46 | XMS_ITS | Encounter Summary ---
Author Organization [employer] Address [address] [facility] 7[address] [place] [address] Care Team Providers Care Propeller Engineer Name Role Phone Anushka Figueredo DO Primary Care Provider [phone] Reason for Visit * Reason Onset Date Comments Results 11/21/2024 Encounter Details Date Type Department Care Team ([facility] st Contact Info) Description 11/21/2024 Telephone [facility] [address] [place] [address] Anushka Figueredo DO [address] [place] [address] Results Social History Tobacco Use Types Packs/Day Years [...] encounter Miscellaneous Notes * Telephone Encounter - Shanthi Reinoso RN - 11/21/2024 1:15 PM EST TC placed to patient [phone] in regards to below message. Patient verbalized understanding adele she does NOT have the night splints or the diclofenac gel. Patient is interested in both. Patient advised diclofenac gel will be sent to the pharmacy and the night splints would be sent to a medical supply store. Patient is aware she will receive a call from the medical supply store once they are ready for p/u. Please send RX for diclofenac gel and night splints to [facility]. Thank you * Telephone Encounter - Raymundo Durant - 11/21/2024 12:01 PM EST TC from pt requesting call back regarding Results. Type of results: Nerve Test Date when done: 11/13/24 [place] [facility] [place] pt at [phone] documented in this encounter Plan of Treatment Upcoming Encounters Date Type Department Care Team ([facility] Contact Info) Description 12/25/2024 9:45 AM EDT Office Visit [facility] [address] [place] [address] 02/13/2025 9:00 AM EDT Office Visit [facility] OPTOMETRY [address] [place], [place] [id number] Karon Merida, OD [address] [place] [address] documented as of this encounter Visit Diagnoses Not on filedocumented in this encounter Additional Health Concerns Assessment Noted Time PHQ-9 Depression Total Score: 4 07/24/20 24 9:07 AM EDT documented as of this encounter Care Teams Propeller Engineer Relationship Specialty Start Date End Date Anushka Figueredo DO [address] [place], [place] [id number] PCP - General Family Medicine 10/03/18 documented as of this encounter
--- OUTSIDE RECORDS SUMMARY | 2024-11-30 07:46 | XMS_ITS | Clinical Summary ---
Author Organization [facility] Address [address] [place] [address] Care Team Providers Care Automotive Service Cashier Name Role Phone Crista Gaines Unavailable [phone] Anushka Figueredo Primary Care Provider [phone] Allergies No known active allergies Medications acetaminophen (TYLENOL) 325 mg tablet Take 650 mg by mouth every 6 (six) hours as needed. Active amitriptyline (ELAVIL) 10 mg tablet Take 10 mg by mouth nightly. Active amLODIPine (NORVASC) 10 mg tablet Take 10 mg by mouth daily. Active docusate sodium (COLACE) 100 mg capsule Take 100 mg by mouth 2 (two) times a day. Active fluticasone (VERAMYST) 27.5 mcg/actuation nasal spray Administer 2 sprays into each nostril once daily. Active lisinopriL (PRINIVIL) 30 mg tablet Take 30 mg by mouth daily. Active loratadine (CLARITIN) 10 mg tablet Take 10 mg by mouth daily. Active methocarbamoL (ROBAXIN) 750 mg tablet Take 750 mg by mouth 2 (two) times a day. Active oxybutynin XL (DITROPAN-XL) 10 mg 24 hr tablet Take 10 mg by mouth daily. Active oxyCODONE (OXY-IR) 5 mg capsule Take 5 mg by mouth every 8 (eight) hours as needed for moderate pain (4-7). Active senna (SENOKOT) 8.6 mg tablet Take 1 tablet by mouth 2 (two) times a day. Active vitamin A-vit C-vit E-zinc-Cu tablet Take 1 tablet by mouth daily. Active PreserVision AREDS-2 [phone] re-xskd-xv-mg capsule TAKE 1 CAPSULE BY MOUTH TWICE DAILY IN THE MORNING AND IN THE EVENING 1 Active predniSONE (DELTASONE) 5 mg tablet Take 5 mg by mouth daily. 2 Active acetaminophen (TYLENOL) 650 mg 8 hr tablet Take 650 mg by mouth every 6 (six) hours as needed. 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 Transferred to [facility] on 09/19 after not improving with steroids. 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 Stat ophthalmology consult 09/18 with recommendation to repeat MRI and medically stabilize patient. -Continue prednisone 10 mg twice daily, transition to once daily at discharge -Continue Synthroid 25 mics daily -Patient is Covid positive, follow-up with Dr. Alberto in 3 to 4 weeks. -Follow-up with endocrine as an outpatient -Transition pain meds to p.o. Tylenol 975 3 times daily, and oxycodone 5 mg as needed Assessment & Plan (09/20/2021 4:28 PM EST): Patient presented to [facility] on 09/16 with headache, double vision, right side ptosis following a knee replacement surgery on September 09. 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 Transferred to [facility] on 09/19 after not improving with steroids. 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 Stat ophthalmology consult 09/18 with recommendation to repeat MRI and medically stabilize patient. -Transition to prednisone 10 mg twice daily -Patient is Covid positive, follow-up with Dr. Alberto in 3 to 4 weeks. -Started on Synthroid 25 mics daily -Continue to use Dilaudid and oxycodone to control headache as well as Tylenol. Will de-escalate as able to tolerate. Assessment & Plan (09/18/2021 9:18 PM EST): Patient presented to [facility] on 09/16 with chief complaint of headache, double vision and right-sided ptosis after she had right knee replacement surgery on September 09. ?? Imaging finding from outside hospital: Head CT showed no evidence of acute territorial infarction or intracranial hemorrhage. Brain MRI on the same day showed lobulated mass (measuring 3.2 x 2.7 x 1.9 cm) centered within the sella turcica most consistent with a pituitary macroadenoma. A portion of this lesion extends into the sphenoid sinus. The lesion appears to invade the right greater than left aspects of the cavernous sinus with complete encasement of the cavernous segment of the right ICA. There appears to be approximately 50% encasement of the cavernous segment of the left ICA. No additional acute intracranial abnormalities noted. Mild underlying microangiopathy was noted. The patient is currently hemodynamically stable. Neurosurgery, endocrinology on board. Patient is on hydrocortisone 50 mg every 6 hours IV. 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 Tested Covid positive at OSH and confirmed at our hospital. Asymptomatic and on room air. -Strict isolation precautions -Consider starting Dexamethasone and Remdesivir IF patient becomes hypoxic Assessment & Plan (09/18/2021 9:15 PM EST): Patient was tested positive for COVID-19 on 09/15. She reports being vaccinated x2. No history of respiratory distress, or hypoxia during the last admission. She is currently on room air without any respiratory complaints. We will continue to monitor her respiratory status and oxygen saturation. Assessment & Plan (09/18/2021 7:13 PM EST): COVID-19 Tested Covid positive at OSH. Asymptomatic and on room air. -Strict isolation precautions -Consider starting Dexamethasone and Remdesivir IF patient becomes hypoxic HTN (hypertension) 09/18/2021 Assessment & Plan (09/19/2021 5:40 PM EST): -Continue home amlodipine 10 mg daily -Continue home lisinopril 30 mg daily Assessment & Plan (09/18/2021 9:16 PM EST): Patient with history of lisinopril 30 mg daily and amlodipine 10 mg daily at home. Blood pressure is currently well controlled. During the admission at [facility] patient required hydralazine for hypertensive urgency. Plan Continue amlodipine 10 mg daily and lisinopril 30 mg daily Continue telemetry monitoring History of right knee joint replacement 09/18/20 Assessment & Plan (09/21/2021 8:51 AM EST): Right knee arthroplasty at [facility] on September 09. Discharged home on aspirin 325 twice daily for total of 42 days. In light of the pituitary apoplexy, MRI imaging concerning for hemorrhage in pituitary region, and upcoming neurosurgical intervention, neurosurgery has recommended holding anticoagulation at this time. Discussed case with orthopedics who advised placement of an IVC filter. -IR consult placed. Volt sent to Dr. Hernández. Recommend filter placement on September 21, 2021 at 8 AM. Patient made n.p.o. at midnight. -Continue PAS stockings -Hold aspirin or other anticoagulation -Patient will need dean removed in 1 week -Monitor incision, keep dressing clean and dry. Assessment & Plan (09/20/2021 4:27 PM EST): Right knee arthroplasty at [facility] on September 09. Discharged home on aspirin 325 twice daily for total of 42 days. In light of the pituitary apoplexy, MRI imaging concerning for hemorrhage in pituitary region, and upcoming neurosurgical intervention, neurosurgery has recommended holding anticoagulation at this time. Discussed case with orthopedics who advised placement of an IVC filter. -IR consult placed. Volt sent to Dr. Hernández. Recommend filter placement on September 21, 2021 at 8 AM. Patient made n.p.o. at midnight. -Continue PAS stockings -Hold aspirin or other anticoagulation -Patient will need dean removed in 1 week -Monitor incision, keep dressing clean and dry. Assessment & Plan (09/18/2021 9:20 PM EST): Patient had regularly replacement on September 09 at [facility]. Per orthopedics recommendation she needs to be on aspirin 325 mg twice daily for a total of 42 days. 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 -Please obtain Ortho consult in the morning. Social History Tobacco Use Types Packs/Day Years [...] to get more. Never true 09/18/2021 Comments No Sex and Gender Information Value Date Recorded Sex Assigned at Not on file Legal Sex Female 1:34 PM EST Gender Identity Not on file Sexual Orientation Not on file Last Filed Vital Signs Vital Sign Reading Time Taken Comments Blood Pressure 140/69 02/11/2022 9:18 AM EDT Pulse 59 02/11/2022 9:18 AM EDT Temperature 36.3 ??C (97.3 ??F) 02/11/2022 9:18 AM ED T Respiratory Rate 18 02/11/2022 9:18 AM EDT Oxygen Saturation 98% 02/11/2022 9:18 AM EDT Inhaled Oxygen Concentration - - Weight 106 kg (234 lb 6.4 oz) 08/17/2022 10:29 A M EST Height 154.9 cm (5' 1 ) 08/17/2022 10:29 AM EST Body Mass Index 44.29 08/17/2022 10:29 AM EST Plan of Treatment Health Maintenance Due Date Last Done Comments Bone Density Screening 1958 CT Colonography 1958 Colonoscopy 1958 Colorectal Cancer Screening 1958 FIT-DNA (Cologuard) 1958 FIT 1958 FOBT 1958 Flex Sigmoidoscopy - 5y 1958 HIV Screening 1958 Medicare Annual Wellness (AWV) 1958 Pneumococcal Vaccine, 65+ Years (1 of 2 - PCV) 1964 DTaP,Tdap,and Td Vaccines (1 - Tdap) 1976 Hepatitis C Screening 1976 Zoster Vaccines (1 of 2) 2008 Breast Cancer Screening 03/18/2024 03/18/2022, 03/11 COVID-19 Vaccine ( season) 2024 09/21/2022, 11/30/2021, 02/21/2021, Additional history exists Influenza Vaccine (#1) 2024 HPV Vaccines Aged Out No longer eligi ble based on patient's age to complete this topic Hepatitis A Vaccines Aged Out No long er eligible based on patient's age to complete this topic MMR Vaccines Aged Out No longer eligi ble based on patient's age to complete this topic Meningococcal Vaccine Aged Out No consuelo ashley eligible based on patient's age to complete this topic Medical Devices Implanted Type Area Piano Maker Device Identifier Shelf Expiration Date Model / Serial / Lot 6fr O.D. Option Vena Cava Filter, Femoral/Jugular Color Coded. Replaces [id number] - [id number] Implanted:Qty: 1 on 09/21/2021 at [facility] Filter [employer] 03/03/2024 [id number] / / [id number] Insurance MEDICARE MANAGED - MISCELLANEOUS Advance Directives For more information, please contact: [phone] * Full Code (Latest Code Status on File) Date Activated Date Inactivated Comments 09/18/2021 7:04 PM 09/22/2021 7:46 PM Care Teams Automotive Service Cashier Relationship Specialty Start Date End Date Anushka Figueredo [address] [place] [phone] PCP - General 10/30/21 Crista Gaines MBBS [address] [place] [address] [place] [address] Consulting Physician Endocrinology 10/09/21
--- OUTSIDE RECORDS SUMMARY | 2024-11-30 07:46 | XMS_ITS | Encounter Summary ---
Author Organization [employer] Address [address] [place] [address] [address] [place] [address] Care Team Providers Care Manager Asset Management Name Role Phone Anushka Figueredo DO Primary Care Provider [phone] Reason for Visit * Reason Onset Date Comments Appointment Request 04/11/2023 Encounter Details Date Type Department Care Team ([facility] st Contact Info) Description 04/11/2023 Telephone [facility] MEDICINE [address] [place] [address] Anushka Figueredo DO [address] [place] [address] Appointment Request Social History Tobacco Use Types [...] encounter Miscellaneous Notes * Telephone Encounter - Yevgeniy Desouza - 04/11/2023 9:12 AM EDT Tc from pt requesting to r/s appt for 04/18/2023 for a OV with provider. Please contact pt at [phone] documented in this encounter Plan of Treatment Upcoming Encounters Date Type Department Care Team (Late st Contact Info) Description 12/25/2024 9:45 AM EDT Office Visit [facility] MEDICINE [address] [place] [address] 02/13/2025 9:00 AM EDT Office Visit [facility] OPTOMETRY [address] [place] [address] Fuad, Karon, OD [address] [place] [address] documented as of this encounter Visit Diagnoses Not on filedocumented in this encounter Additional Health Concerns Assessment Noted Time PHQ-9 Depression Total Score: 0 12/10/19 23 10:17 AM EST documented as of this encounter Care Teams Manager Asset Management Relationship Specialty Start Date End Date Anushka Figueredo DO [address] [place] [address] PCP - General Family Medicine 10/03/18 documented as of this encounter
--- OUTSIDE RECORDS SUMMARY | 2024-11-30 07:46 | XMS_ITS | Encounter Summary ---
Author Organization [facility] Address [address] [place] [address] Care Team Providers Care Lift Driver Name Role Phone Crista Gaines Unavailable [phone] Anushka Figueredo Primary Care Provider [phone] Encounter Details Date Type Department Care Team (Late st Contact Info) Description 02/15/2022 Orders Only [facility] Department of Neurosurgery [address] [place] [address] Ej Badillo PA-C Pituitary tumor (Primary Dx) Social History Tobacco Use Types [...] suspected to have Coronavirus/COVID-19? No / Unsure 02/11/2022 9:12 AM EDT documented as of this encounter Plan of Treatment Scheduled Orders Name Type Priority Associated Diagnoses Orde r Schedule Creatinine with eGFR Lab Routine Pituitary tumor 1 Occurrences starting 02/15/2022 until 08/18/2023 Blood urea nitrogen Lab Routine Pituitary tumor 1 Occurrences starting 02/15/2022 until 02/15/2023 documented as of this encounter Visit Diagnoses Diagnosis Pituitary tumor- Primary Neoplasm of unspecified nature of endocrine glands and other parts of nervous system documented in this encounter Care Teams Lift Driver Relationship Specialty Start Date End Date Anushka Figueredo [address] [place] [phone] PCP - General 10/30/21 Crista Gaines MBBS [address] [place] [address] [place] [address] Consulting Physician Endocrinology 10/09/21 documented as of this encounter
--- OUTSIDE RECORDS SUMMARY | 2024-11-30 07:46 | XMS_ITS | Data Portability ---
Author Organization [facility] [place] [facility] [place] Address [address] [place] [id number] Care Team Providers Care Manager Publishing Name Role Phone HIM [facility] OTHER Assessment No assessment recorded. Plan of Treatment Reminders Order Date Submit Date Provider Last Modified By Organization Details Last Modified Time Details Appointments None recorded. Lab None recorded. Referral None recorded. Procedures None recorded. Surgeries None recorded. Imaging None recorded. Medication Orders ketorolac 30 mg/mL injection solution 2023 024 [facility], [address] [place] [address], [phone], 20:38:17 Patient TargetsNo targets recorded. Patient InstructionsNo instructions recorded. Reason for Referral None Reported. Medical Equipment None Reported. Allergies No known drug allergies Medications Name Sig Start Date Stop Date Status Note LastModified by Organization Details LastModified Time medbox status USE DIRECTED active Not Available Not Available No t Available oxybutynin chloride ER 10 mg tablet,exten ded release 24 hr TAKE 1 TABLET BY MOUTH EVERY MORNING DO NOT BREAK, CRUSH, DISSOLVE OR CHEW active Not Available Not Available No t Available ibuprofen 800 mg tablet TAKE 1 TABLET BY MOUTH EVERY 8 HOURS NEEDED FOR MILD PAIN FOR UP TO 7 DAYS active Not Available Not Available No t Available senna 8.6 mg tablet TAKE 2 TABLETS ONCE DAILY IN THE MORNING NEEDED FOR CONSTIPATIO N active Not Available Not Available No t Available topiramate 25 mg tablet TAKE 1 TABLET BY MOUTH AT BEDTIME active Not Available Not Available No t Available amitriptylin e 50 mg tablet TAKE 1 TABLET BY MOUTH AT BEDTIME active Not Available Not Available No t Available Sudogest 30 mg tablet TAKE 1 TABLET BY MOUTH EVERY 8 HOURS NEEDED FOR CONGESTION active Not Available Not Available N ot Available acetaminophe n ER 650 mg tablet,exten ded release TAKE 1 TABLET BY MOUTH EVERY 6 HOURS NEEDED FOR PAIN active Not Available Not Available No t Available amitriptylin e 25 mg tablet TAKE 1 TABLET BY MOUTH AT BEDTIME active Not Available Not Available No t Available magnesium oxide 400 mg (241.3 mg magnesium) tablet TAKE 1 TABLET BY MOUTH TWICE DAILY IN THE MORNING AND IN THE EVENING active Not Available Not Available No t Available amitriptylin e 10 mg tablet TAKE 2 TABLETS BY MOUTH EVERY DAY AT BEDTIME active Not Available Not Available No t Available amlodipine 10 mg tablet TAKE 1 TABLET BY MOUTH EVERY MORNING active Not Available Not Available No t Available benzonatate 100 mg capsule TAKE 1 CAPSULE BY MOUTH THREE TIMES DAILY IN THE MORNING, AT NOON, AND AT BEDTIME FOR COUGH FOR UP TO 10 DAYS active Not Available Not Available No t Available petrolatum topical ointment active Not Available Not Available Not Available lisinopril 30 mg tablet TAKE 1 TABLET BY MOUTH EVERY MORNING active Not Available Not Available No t Available gabapentin 300 mg capsule TAKE 1 CAPSULE BY MOUTH THREE TIMES DAILY IN THE MORNING, EVENING, AND BEDTIME active Not Available Not Available Not Available propranolol 20 mg tablet TAKE 1 TABLET BY MOUTH TWICE DAILY active Not Available Not Available No t Available fluticasone propionate 50 mcg/actuatio n nasal spray,suspen dionte USE 2 SPRAYS IN EACH NOSTRIL ONCE DAILY active Not Available Not Available N ot Available loratadine 10 mg tablet TAKE 1 TABLET BY MOUTH EVERY MORNING active Not Available Not Available No t Available oxycodone 5 mg tablet TAKE 1 TABLET BY MOUTH EVERY 6 HOURS NEEDED FOR SEVERE PAIN FOR UP TO 28 DAYS active Not Available Not Available No t Available divalproex ER 250 mg tablet,exten ded release 24 hr TAKE 1 TABLET BY MOUTH EVERY DAY active Not Available Not Available No t Available cyclobenzapr ine 5 mg tablet TAKE 1 TABLET BY MOUTH THREE TIMES DAILY FOR 7 DAYS active Not Available Not Available N ot Available diclofenac 1 % topical gel APPLY 2 GRAMS TOPICALLY TO AFFECTED AREA(S) TWICE DAILY IN THE MORNING AND AT BEDTIME FOR PAIN active Not Available Not Available No t Available blood pressure test kit-large cuff USE DIRECTED ONCE A WEEK active Not Available Not Available Not Available ketorolac 30 mg/mL injection solution Inject 15 mg by intravenous route. 2023 active Not Available Not Available Not Avai lable Vitamin D3 50 mcg (2,000 unit) capsule TAKE 1 CAPSULE BY MOUTH EVERY MORNING active Not Available Not Available No t Available PreserVision AREDS-2 250 mg-90 mg-40 mg-1 mg capsule TAKE 1 CAPSULE BY MOUTH TWICE DAILY IN THE MORNING AND IN THE EVENING active Not Available Not Available No t Available Vitals Date Recorded Body temperature Respiratory rate Body weight Body height Heart rate Oxygen saturation Oxygen saturation in Arterial blood by Pulse oximetry Systolic blood pressure Diastolic blood pressure Provider Name and Address Organization Details Last Updated DateTime 4 99.1 [degF] 19 /min 735232. 792 g 154.94 cm 65 /min 97 % 97 % 152 mm[Hg] 72 mm[Hg] Not Available [facility] - production 4 16:41:05 Social History None recorded. Functional Status None recorded. Mental Status None recorded. Family History Nothing Reported. Medical History No medical history recorded. Gynecological HistoryNo gynecological history recorded. Obstetrics History GPAL:G 0 P 0 0 0 0 Past Encounters Encounter ID Performer Location Encounter Start Date Encounter Closed Date Diagnosis/Indication Diagnosis SNOMED-CT Code Diagnosis ICD10 Code Diagnosis Note [id number] Aung Ingram MD [facility] - [address] [phone] 09/14/2024 16:41:03 09/14/2024 21:58:24 Pain in right thumb [id number] 801396 M79.644 As noted, we were called to see this patient regarding concerns of pain in right thumb and headache. Evaluation in the field was performed by my chief nuclear medicine technologist colleague, as noted above, I provided real-time direction and supervisio n for this visit. The evaluation revealed chronic headache (more than three years per chief nuclear medicine technologist) with pain to the right thumb. Thumb appears normal, worsened on movement and history of osteoarthr itis. Impression :Headache, arthritis Plan:Ketor olac x15mg x1 Primary care, considerro utine follow-up Dispositio n: We discussed the diagnostic uncertaint y of home visits and the risk associated with this. In this case, the patient and I felt this to be an acceptable and reasonable amount of risk given the benefit of avoiding an ED visit. We discussed the need to seek care urgently/e mergently in the setting of any new or worsening serious symptoms, particular ly worsening headache or neurologic al symptoms. Health Concerns Section Related Observation LastModified by Organization Detai ls LastModified Time None Recorded Concern Status LastModified by Organization Details LastModified Time None Recorded Advance Directives Directive None Recorded Payers Encounter Date Sequence Insurance Name Policy Number Policy Mata Covered Member ID Mata Member ID Guarantor Name 09/14/2024 1 [facility] - DOS ON OR AFTER 2023 - DUAL ELIGIBLE - SNF OPTIONS AND ONE CARE (MEDICARE REPLACEMENT/ADV ANTAGE - HMO) Gretel Tran Azeb [id number] Gretel Tran Azeb Notes Date Note Type Note Provider Name and Address Organization Details Recorded Time 09/14/2024 text/html HPI: Patient with complaints of right thumb joint pain. No swelling no injury. .................. .................. .................. .................. .................. .................. .................. ............... [facility] Nurse Triage Notes (Aman Lin - RN): Chief Complaints: Joint pain/swelling PMH: Chronic Pain, Asthma, Hypertension Comments: Reviewed HPI .................. .................. .................. .................. .................. .................. .................. ............... Poultry Vaccinator Note From Rigo Stauffer: Pt chief complaint today of pain located in her right hand where her thumb meds her palm. Pt states that this pain has been going on for quite some time however she is able to state that the pain has entered a more severe sense in the last week before her [facility] appointment today. To has a history of arthritis and states that the pain at rest is a 5/10 however when reaching or grabbing things this pain easily enters 8/10. Pt also notes to have a migraine that has bee occurring for 3 years, pt has seen professional help with the pain and cannot acquire a diagnosis on the situation. Pt has been taking oxycodone as well as Tylenol 1 gram every 6-8 hours with very little relief. Pt denies any cp, sob or NVD, allergies -are noted and placed in proper PCR tab. Nonneural focal exam, afebrile, vitals WNL. Lungs are clear in auscultation,, benign abdominal assessment. No lower extremity edema. Upon examination of the right hand there does not appear to be any trauma, or deformity to the extremity. Pain is producible on palpation and pt appears to have good csm in the extremity. Pt states slight pressure behind the eyes however her pain in the head is mostly located in the increase with movement. [facility] Aung Ingram consultedPt given 15 mg Im of ketorlac into the left deltoid. Pt ignored to seek a further consultation with her pcp as early as possible. Pt educated on red flag S&S and informed to call emergency services if any present. .................. .................. .................. .................. .................. .................. .................. ............... [facility] Consulted: Aung Ingram .................. .................. .................. .................. .................. .................. .................. ............... Disposition: Fulfilled Aung Ingrma MD [address], [place], [phone], [facility] 09/14/2024 20:38:30 OBGyn Episode No OBEpisode recorded.
--- OUTSIDE RECORDS SUMMARY | 2024-11-30 07:46 | XMS_ITS | Encounter Summary ---
Author Organization [employer] Address [address] [facility] [address] [place] [address] Care Team Providers Care Installment Dealer Name Role Phone Anushka Figueredo DO Primary Care Provider [phone] Reason for Visit * Reason Comments Med Refill Encounter Details Date Type Department Care Team ([facility] st Contact Info) Description 09/18/2024 Refill [facility] CHC MED & PEDS [address] [place] [address] Anushka Figueredo DO [address] [facility] [place] [address] Chronic pain of both knees Social History [...] Description 12/25/2024 9:45 AM EDT Office Visit [facility] MEDICINE [address] [place] [address] 02/13/2025 9:00 AM EDT Office Visit [facility] OPTOMETRY [address] [place] [address] FuadKaron foss, OD [address] [place] [address] documented as of this encounter Visit Diagnoses Diagnosis Chronic pain of both knees documented in this encounter Additional Health Concerns Assessment Noted Time PHQ-9 Depression Total Score: 4 07/24/20 24 9:07 AM EDT documented as of this encounter Care Teams Installment Dealer Relationship Specialty Start Date End Date Anushka Figueredo DO [address] [place] [address] PCP - General Family Medicine 10/03/18 documented as of this encounter
--- OUTSIDE RECORDS SUMMARY | 2024-11-30 07:46 | XMS_ITS | Clinical Summary ---
Author Organization [id number] Address [address] [place] [address] [address] [place] [address] Care Team Providers Care Health Information Assistant Name Role Phone RoxannaAnushka lara Primary Care Provider + [phone] Allergies Active Allergy Reactions Criticality Noted Date Comments Bacitracin-Polymyxin B High 09/20/2024 Other Reaction(s): Rash with Blisters Latex High 09/20/2024 Other Reaction(s): Rash with Blisters Wound Dressing Adhesive 12/09/2022 Wound Dressings 12/09/2022 Medications baclofen (Lioresal) 10 MG tablet Take 1 tablet by mouth if needed in the morning, at noon, and at bedtime for muscle spasms. 03/26/20 22 Active methocarbamol (Robaxin) 750 MG tablet Take 1 tablet by mouth if needed in the morning and at bedtime for muscle spasms. 09/29/20 21 Active nystatin (Mycostatin) 265730 UNIT/GM powder Apply topically every 12 (twelve) hours. 03/13/20 21 Active albuterol 108 (90 Base) MCG/ACT inhaler Inhale 2 puffs every 4 (four) hours if needed. 01/03/20 21 Active fluticasone (Flonase) 50 MCG/ACT nasal sprayIndication s:Chronic allergic rhinitis USE 2 SPRAYS IN EACH NOSTRIL EVERY DAY 16 g 5 06/07/20 23 Active terbinafine (LamISIL) 250 MG tablet Take 250 mg by mouth in the morning. 05/13/20 23 Active hydrocortisone 2.5 % cream Apply topically if needed in the morning and at bedtime (itching). 28 g 1 06/14/20 23 Active naloxone (Narcan) 4 mg/0.1 mL nasal sprayIndication s:Chronic left shoulder pain Administer 1 spray (4 mg) into affected nostril(s) if needed for opioid reversal. spray 0.1 milliliter by intranasal route in 1 nostril may repeat dose every 2-3 minutes as needed alternating nostrils with each dose 2 each 2 09/06/20 23 Active senna (Senokot) 8.6 MG tablet TAKE 2 TABLETS BY MOUTH ONCE DAILY IN THE MORNING NEEDED FOR CONSTIPATION 180 tablet 3 01/17/20 24 Active lisinopril 30 MG tablet TAKE 1 TABLET BY MOUTH EVERY MORNING 90 tablet 3 01/17/20 24 Active Multiple Vitamins-Minera ls (PreserVision AREDS 2) capsuleIndicati ons:Dry eyes TAKE 1 CAPSULE BY MOUTH TWICE DAILY IN THE MORNING AND IN THE EVENING 180 capsule 3 01/17/20 24 Active amLODIPine (Norvasc) 10 MG tabletIndicatio ns:Essential hypertension TAKE 1 TABLET BY MOUTH EVERY MORNING 90 tablet 3 01/17/20 24 Active Diclofenac Sodium 1 % cream Apply 2 g topically if needed in the morning and at bedtime (pain). 120 g 3 02/28/20 24 Active propranolol (Inderal) 20 MG tablet Take 20 mg by mouth 2 times daily. 04/23/20 24 Active topiramate (Topamax) 25 MG tablet Take 25 mg by mouth at bedtime. 04/11/20 24 Active loratadine (Claritin) 10 MG tabletIndicatio ns:Chronic allergic rhinitis TAKE 1 TABLET BY MOUTH EVERY MORNING 30 tablet 5 05/07/20 24 Active gabapentin (Neurontin) 300 MG capsule TAKE 1 CAPSULE BY MOUTH THREE TIMES DAILY IN THE MORNING, EVENING, AND BEDTIME 90 capsule 3 06/01/20 24 Active divalproex (Depakote ER) 250 MG 24 hr tablet Take 250 mg by mouth Once per day. 05/30/20 24 Active amitriptyline (Elavil) 50 MG tablet Take 1 tablet (50 mg) by mouth at bedtime. 30 tablet 5 07/24/20 24 2024 Active cholecalciferol (Vitamin D-3) 50 MCG (2000 UT) capsule Take 1 capsule (50 mcg) by mouth Once per day. 30 capsule 11 07/24/20 24 Active Magnesium 400 MG capsule Take 400 mg by mouth 2 times daily. 60 capsule 11 07/24/20 24 2024 Active Blood Pressure kit 1 each 1 (one) time per week. 1 kit 08/12/20 Active oxybutynin XL (Ditropan-XL) 10 MG 24 hr tabletIndicatio ns:Urinary incontinence, unspecified type TAKE 1 TABLET BY MOUTH EVERY MORNING DO NOT BREAK, CRUSH, DISSOLVE OR CHEW 90 tablet 1 08/22/20 24 Active acetaminophen (Tylenol 8 Hour) 650 MG ER tablet TAKE 1 TABLET BY MOUTH EVERY 6 HOURS NEEDED FOR PAIN 60 tablet 09/19/20 24 Active Skin Protectants, Misc. (eucerin) cream Apply topically if needed for wound care or dry skin. 396 g 3 11/11/19 25 2025 Active oxyCODONE (Roxicodone) 5 MG immediate release tabletIndicatio ns:Chronic pain of both knees TAKE 1 TABLET BY MOUTH EVERY 6 HOURS NEEDED FOR SEVERE PAIN 112 tablet 11/23/19 25 Active albuterol (2.5 MG/3ML) 0.083% nebulizer solution INHALE 1 AMPULE USING A NEBULIZER EVERY 4 HOURS NEEDED FOR WHEEZING OR SHORTNESS OF BREATH 90 mL 1 11/23/19 25 Active oxyCODONE (Roxicodone) 5 MG immediate release tabletIndicatio ns:Chronic pain of both knees TAKE 1 TABLET BY MOUTH EVERY 6 HOURS NEEDED FOR SEVERE PAIN FOR UP TO 28 DAYS 112 tablet 10/24/19 25 2024 Discontinued albuterol (2.5 MG/3ML) 0.083% nebulizer solution Take 3 mL by nebulization every 4 (four) hours if needed for shortness of breath or wheezing. 75 mL 1 10/31/19 25 2024 Discontinued Active Problems Problem Noted Date Diagnosed Date Chronic daily headache 09/19/2024 Chronic pain syndrome 02/08/2024 Assessment & Plan (05/29/2024 1:59 PM EDT): Patient attended and participated in group visit format for mental health Utox and pill count as expected today Regular screening interval for utox/pill count 2-3 months Patient to return for chronic pain management in 1-2 months and to PCP as scheduled Assessment & Plan (04/24/2024 2:44 PM EDT): Patient attended and participated in group visit format for midnfulness Utox not performed, as up to date from 03/2024, needed pill count as forgot pills last time. As expected today Regular screening interval for utox/pill count 2-3 months Patient to return for chronic pain management in one month and to PCP as scheduled Assessment & Plan (02/29/2024 10:02 AM EDT): Patient attended and participated in group pain format Utox and pill count as expected from [employer]TRIDGE [employer] visit 02/01/24, so not performed today Regular screening interval for utox/pill count 2-3 months She will trial Diclofenac gel for arthritis, prescription sent Patient to return for chronic pain management in one month and to PCP as scheduled Assessment & Plan (02/08/2024 5:01 PM EDT): Apply heat on affected area Short course of ibuprofen and flexeril prescribed, she knows about side effect of muscle relaxer somnolence and she knows she can not take it together with oxycodone XRAY ordered Orthopedics referral done Overactive bladder 06/14/2023 Allergic rhinitis 06/14/2023 Long-term current use of opiate analgesic 2022 Overview (10/16/2024): Medication: oxycodone 5mg Q6H PRN Indication: chronic pain syndrome, OA, chronic pain left shoulder and bilat knees Last [employer] Agreement: 10/16/24, Dr. Figueredo Assessment & Plan (10/16/2024 1:37 PM EST): Timeline: - 10/16/24: [employer] Renewal. Group visit, utox/pill count WNL Assessment & Plan (07/25/2024 11:05 AM EDT): Dx: Rx: Tier 3 (scheduled every 3 months) Other notes: Complete edentulism 06/09/2023 Chronic left shoulder pain 12/01/2022 Chronic pain of both knees 12/01/2022 Assessment & Plan (07/25/2024 11:06 AM EDT): Patient participated in group visits for chronic pain to the greatest extent possible. Her urine toxicology screen and pill counts are as expected. To continue participation in group visits as desired. To continue considering non-pharmacological management. Assessment & Plan (03/27/2024 1:58 PM EDT): Patient participated in group visits for chronic pain to the greatest extent possible. Her urine toxicology screen and pill counts are as expected. To continue participation in group visits for the benefits that accrue to her. 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 Transferred to [facility] on 09/19 after not improving with steroids. [...] daily, and oxycodone 5 mg as needed Varicose veins of lower extremity 08/29/2017 Status post total right knee replacement 016 Overview (12/01/2022): Last Assessment & Plan: Right knee arthroplasty at [facility] on September 09. Discharged home on aspirin [...] -Monitor incision, keep dressing clean and dry. Essential hypertension 08/18/2015 Overview (12/01/2022): Last Assessment & Plan: -Continue home amlodipine 10 mg daily -Continue home lisinopril 30 mg daily History of ductal carcinoma in situ of breast BMI 40.0-44.9, adult 08/18/2015 Osteoarthritis 08/18/2015 Overview (10/16/2024): Xray February 2024: advanced degenerative changes of AC joint right shoulder Assessment & Plan (10/16/2024 1:33 PM EST): DME rx for 10-in-1 pillow requested 10/16/24 -Good engagement and participation with Group Medical Visit model -Encouraged multifactorial approach to pain control including pharm and non- pharm modalities -UTOX and Pill count as expected Resolved Problems Problem Noted Date Diagnosed Date Resolved Date Endometrial cancer 02/29/2024 History of breast cancer 02/27/2024 Severe obesity 02/27/2024 04/06/2024 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 12/01/2022 Postmenopausal bleeding 12/01/2022 03/0 10/2022 Ankle pain 08/18/2015 12/01/2022 Encounters Date Type Department Care Team Description 11/23/2024 Refill [facility] [address] [place] [address] Anushka Figueredo DO 11/21/[address] [address] Anushka Figueredo DO Results 11/20/2024 Refill [facility] [address] [place] [address] Anushka Figueredo DO Chronic pain of both knees 11/11/2024 Orders Only [address] [address] Anushka Figueredo DO 10/31/2024 9:00 AM EST Office Visit [address] [address] Anushka Figueredo DO Essential hypertension (Primary Dx); Hypothyroidism (acquired); Fatty liver; Mild intermittent asthma without complication; Pituitary macroadenoma (CMS/HCC); Chronic daily headache; History of ductal carcinoma in situ of breast; History of endometrial adenocarcinoma (CMS/HCC); Chronic pain of both knees; Chronic left shoulder pain; Paresthesia of both hands; Dysphagia, unspecified type; Sleep-disordered breathing; Healthcare maintenance; Encounter for screening for malignant neoplasm of colon 10/31/[address] [address] Anushka Figueredo DO 10/31/2024 Travel 10/24/2024 Telephone [facility] [address] [place] [address] Anushka Figueredo DO Durable Medical Equipment 10/23/2024 Refill [facility] [address] [place] [address] Anushka Figueredo DO Chronic pain of both knees 10/19/2024 Patient Outreach [address] [address] [place], Anushka, DO Pre-visit Planning (SDOH screening negative and tobacco screening negative) 10/18/[address] [address] Mar Rick [place] Durable Medical Equipment (DME script Recliner to CCA.) 10/17/[address] [address] Anushka Figueredo, Durable Medical Equipment (DME for Liners(L&C)/DME for Recliner(CCA)) 10/17/2024 Telephone [facility] [address] [place] [address] Anna Elizabeth, GRAIN SHOVELER Durable Medical Equipment (10 in 1 pillow ) 10/16/2024 9:45 AM EST Office Visit [address] [address] Anna Elizabeth, GRAIN SHOVELER Osteoarthritis, unspecified osteoarthritis type, unspecified site (Primary Dx); Chronic pain syndrome; Long-term current use of opiate analgesic 10/16/2024 Telephone [facility] [address] [place] [address] Anna Elizabeth, GRAIN SHOVELER [employer]: Tier Level 10/16/[address] [address] Camila Chavez, RN [employer] Renewal today 10/16/2024 Travel 09/25/2024 Refill [facility] [address] [place] [address] Anushka Figueredo, DO Chronic pain of both knees 09/25/2024 Refill [facility] [address] [place] [address] Anushka Figueredo, DO Chronic pain of both knees 09/19/2024 Refill [facility] [address] [place] [address] Janine Ley MD 09/19/[address] [address] Anushka Figueredo, DO Med Refill 09/19/2024 Refill [facility] [address] [place] [address] Migue Craig MD 09/18/2024 Telephone [facility] [address] [place] [address] Anushka Figueredo, DO Nurse Triage 09/18/2024 Refill [facility] [address] [facility] [place] [address] Anushka Figueredo, DO Chronic pain of both knees 09/14/2024 Telephone [facility] [address] [place] [address] Anushka Figueredo, DO Appointment Request 09/14/2024 Telephone [facility] [address] [place] [address] Anushka Figueredo, DO Nurse Triage 09/11/2024 Telephone [facility] [address] [place] [address] Anushka Figueredo, DO Appointment Request 09/11/2024 Telephone [facility] [address] [place] [address] Shanthi Reinoso, DELLA Appt r/s 09/10/2024 Telephone [facility] [address] [place] [address] Paramjit Jamison [place] CHART PREP from Last 3 Months Immunizations Name Administration Dates Next Due Moderna Covid-19 Vaccine 12+ 11/30/2021,02/22/20 21,01/24/2021 Moderna Covid-19 Vaccine 6+ Bivalent 09/21/2022 Family History Medical History Relation Name Comments Hypertension Mother Osteoarthritis Mother Osteoporosis Mother Diabetes Mother's Brother Hypertension Mother's Brother Relation Name Status Comments Mother Mother's Brother Social History Tobacco Use Types Packs/Day Years [...] Orientation Straight 08/02/2022 10 :14 AM EDT Last Filed Vital Signs Vital Sign Reading Time Taken Comments Blood Pressure 138/70 10/31/2024 8:59 AM EST Pulse 84 10/31/2024 8:59 AM EST Temperature 36 ??C (96.8 ??F) 10/31/2024 8:59 AM EST Respiratory Rate 18 10/31/2024 8:59 AM EST Oxygen Saturation 98% 02/21/2024 9:49 AM EDT Inhaled Oxygen Concentration - - Weight 108 kg (238 lb) 10/31/2024 8:59 AM EST Height 154.9 cm (5' 1 ) 10/31/2024 8:59 AM EST Body Mass Index 44.97 10/31/2024 8:59 AM EST Plan of Treatment Upcoming Encounters Date Type Department Care Team ([facility] st Contact Info) Description 12/25/2024 9:45 AM EDT Office Visit [facility] [address] [place] [address] 02/13/2025 9:00 AM EDT Office Visit [facility] [address] [place] [address] Karon Merida, OD [address] [place] [address] Health Maintenance Due Date Last Done Comments CT Colonography 1960 Dental Prophylaxis 1960 Dental X-Ray: Bitewings 1960 FIT DNA/Cologuard 1960 FIT 1960 FOBT 1960 Sigmoidoscopy 1960 DTaP/Tdap/Td Vaccines (1 - Tdap) 1977 Hepatitis A Vaccines (1 of 2 - Risk 2-dose series) 1977 Pneumococcal Vaccine: 50+ Years (1 of 2 - PCV) 1977 Zoster Vaccines (1 of 2) 2008 Hepatitis B Vaccines (1 of 3 - Risk 3-dose series) 2018 RSV Patients and Patients Aged 60 years or older (1 - Risk 60-74 years 1-dose series) 2018 Dental Oral Exam 01/16/2022 07/17/2021, 06/29/2019 COVID-19 Vaccine ( season) 2024 09/21/2022, 11/30/2021, 02/21/2021, Additional history exists Influenza Vaccine (#1) 2024 Dental X-Ray: Full Mouth 07/18/2024 07/17/2021 Colonoscopy 11/07/2024 11/07/2014 Colorectal Cancer Screening 11/07/2024 Mammogram 05/16/2025 05/16/2024, 03/04, 03/31/2023, Additional history exists Depression Screening 07/24/2025 07/24/2024, 07/24/20 24 SDOH Screening 10/19/2025 10/19/2024 Alcohol/Substance Use Screening 10/31/2025 10/31/2024 Tobacco Screening 10/31/2025 10/31/2024 Lipid Panel 02/17/2029 02/18/2024, 03/0 04/2023, 01/01/2022 Hepatitis C Screening Completed 01/19/2021 HIB Vaccines Aged Out No longer eligi ble based on patient's age to complete this topic HPV Vaccines Aged Out No longer eligi ble based on patient's age to complete this topic IPV Vaccines Aged Out No longer eligi ble based on patient's age to complete this topic Meningococcal Vaccine Aged Out No consuelo ashley eligible based on patient's age to complete this topic RSV under 20 months Aged Out No longe r eligible based on patient's age to complete this topic Rotavirus Vaccines Aged Out No longer eligible based on patient's age to complete this topic Procedures Procedure Name Priority Date/Time Associated Diagnosis Comments POCT LINDSEY-14 URINE DRUG SCREEN Routine 10/16/2024 1:06 PM EST Osteoarthritis, unspecified osteoarthritis type, unspecified site BI MAMMOGRAM SCREENING TOMOSYNTHESIS BILATERAL Routine 05/16/2024 8:00 AM EDT LIPID PANEL, STANDARD Routine 02/18/2024 9:29 AM EDT Essential hypertension PANORAMIC RADIOGRAPHIC IMAGE Routine 07/17/2021 12:00 AM EDT PERIODIC ORAL EVALUATION - ESTABLISHED PATIENT Routine 07/17/2021 12:00 AM EDT ZZZ HISTORICAL VITAMIN D 25-OH TOTAL Routine 01/19/2021 8:25 AM EDT HM COLONOSCOPY Routine 11/07/2014 3:46 PM EST from Last 3 Months or Most Recently Relevant to Health Maintenance Results * POCT LINDSEY-14 Urine Drug Screen (10/16/2024 1:06 PM EST) Oxycodone Screen, Urine Positive Urine Urine specimen obtained by clean catch procedure / Unknown 10/16/2024 1:06 PM EST Camila Schuler, RN - 10/16/2024 1:06 PM EST UTOX cup Lot#[id number] Exp. 06/27/26 Internal Pass Control Anna OSPINA POINT OF CARE TEST ENTER/EDIT ORDERABLES Final Result * BI Mammogram Screening Tomosynthesis Bilateral (05/16/2024 8:00 AM EDT) Anatomical Region Laterality Modality Breast Bilateral Mammography 05/16/2024 8:00 AM EDT Narrative 05/18/2024 4:20 PM EDT ? [facility] ? [address] ?[place], [place] [address] ? Mammography Report ? Signed ? Patient: Tran Azeb,Gretel ?MR#: ?? [id number] ? : 1960 ?Acct:[id number] ? Age/Sex: 63 / F ?ADM Date: 05/16/24 ? Loc: HO.MAMMO ? Attending Dr: Anushka Figueredo DO ? Ordering Physician: Anushka Figueredo DO ?Results: 2B ?? enign Findings ? Date of Service: 05/16/24 ?Follow Up: 1 Year From Orig ?? inal Mammogram ? Procedure(s): MM tomosynthesis screening BI ?? Accession Number(s): [id number] ? cc: TerellAnushka Johnson DO ? EXAMINATION: ?? MM SCREENING DIGITAL BREAST TOMOSYNTHESIS, BILATERAL ? CLINICAL INFORMATION: ? Screening. Asymptomatic. ? The patient has a history of prior right breast cancer. ? COMPARISON: ?? Mammography: This study is compared with prior exams dating back to ?? 2017. ? TECHNIQUE: ?? Digital breast tomosynthesis is performed in both the craniocaudal and ?? mediolateral oblique views along with computer-aided detection (CAD). ?? Synthesized 2D images are generated from the tomosynthesis. ? FINDINGS: ?? There are scattered areas of fibroglandular density (ACR BI-RADS breast ?? composition Category b). ? There are no significant masses, abnormal calcifications, or other ?? abnormalities. ? There are postsurgical changes in the upper outer quadrant of the right ?? breast. ? MM/MM tomosynthesis screening BI ?? IMPRESSION: ?? No mammographic evidence of malignancy. ? ASSESSMENT: ? BI-RADS BI-RADS 2 - Benign Findings ? RECOMMENDATION: ?? Routine annual mammography screening. ? 1 year F/U ? This examination should not preclude the clinical evaluation of a ?? suspicious palpable abnormality. ? This patient's information was entered into a reminder system with a ?? target due date for their next mammogram. ? Dictated By: ?Shaunna Rene MD ? Signed By: ?<Electronically signed by Shaunna Rene MD in OV> ? 05/18/24 1616 ? DD/ 0800 ? TD/TT: ? Automatic Embroidery Machine Tender: ? Procedure Note Sree, Image - 05/18/2024 [place] [facility] [address] [place] [address] Mammography Report Signed Patient: Garrick Kendall#: [id number] : 8Acct:[id number] Age/Sex: 63 / FADM Date: 05/16/24 Loc: [facility] Attending Dr: Anushka Figueredo DO Ordering Physician: Anushka Figueredoults: 2B enign Findings Date of Service: 05/16/24Follow Up: 1 Year From Orig inal Mammogram Procedure(s): MM tomosynthesis screening BI Accession Number(s): [id number] cc: Anushka Figueredo DO EXAMINATION: MM SCREENING DIGITAL BREAST TOMOSYNTHESIS, BILATERAL CLINICAL INFORMATION: Screening. Asymptomatic. The patient has a history of prior right breast cancer. COMPARISON: Mammography: This study is compared with prior exams dating back to 2018. TECHNIQUE: Digital breast tomosynthesis is performed in both the craniocaudal and mediolateral oblique views along with computer-aided detection (CAD). Synthesized 2D images are generated from the tomosynthesis. FINDINGS: There are scattered areas of fibroglandular density (ACR BI-RADS breast composition Category b). There are no significant masses, abnormal calcifications, or other abnormalities. There are postsurgical changes in the upper outer quadrant of the right breast. MM/MM tomosynthesis screening BI IMPRESSION: No mammographic evidence of malignancy. ASSESSMENT: BI-RADS BI-RADS 2 - Benign Findings RECOMMENDATION: Routine annual mammography screening. 1 year F/U This examination should not preclude the clinical evaluation of a suspicious palpable abnormality. This patient's information was entered into a reminder system with a target due date for their next mammogram. Dictated By: Shaunna Rene MD Signed By: <Electronically signed by Shaunna Rene MD in OV> 05/18/24 1616 DD/ 0800 TD/TT: Automatic Embroidery Machine Tender: Anushka Figueredo DO IMG BI PROCEDURES Final Resu lt * (ABNORMAL) Lipid Panel, Standard (02/18/2024 9:29 AM EDT) Triglycerides 72 <150 mg/dL [facility] Comment:Desirable Triglyceri de: less than 150 mg/dLBorderline High Triglyceride 150-199 mg/dLHigh Triglyceride: 200-499 mg/dLVery High Triglyceride: greater than or equal to 5OO mg/dL Cholesterol 186 <200 mg/dL [facility] Comment:Desirable Cholestero l: less than 200 mg/dLBorderline High Cholesterol: 200-239 mg/dLHigh Cholesterol: greater than 239 mg/dL LDL Cholesterol Calculated 101(H) <100 mg/dL [facility] Comment:Desirable LDL: less than 100 mg/dLNear Optimal/Above Optimal LDL: 110- 129 mg/dLBorderline High LDL: 130-159 mg/dLHigh LDL: 160-189 mg/dLVery High LDL: greater than or equal to 190 mg/dL HDL Cholesterol 71 >40 mg/dL [facility] Comment:Desirable HDL: great er than 40 mg/dL Note: This HDL assay may give artificially low results in patients with liver disease. Blood Venous blood specimen / Unknown 02/18/2024 9:29 AM EDT 02/18/2024 9:29 AM EDT us Anushka Terell DO LAB BLOOD ORDERABLES Final R esult [facility] [address] [place] [phone] * (ABNORMAL) Vitamin D 25-OH Total (01/19/2021 8:25 AM EDT) Vitamin D 25-OH Total 20.2 >30 ng/mL [facility] Comment: Health Based Reference Values* ?? < 20 ??ng/mL ??Deficient 20-30 ng/mL ??Insufficient > 30 ??ng/mL ??Sufficient ?? *Zee HEARD. N Engl J Med. 2007;[id number]:[id number] ?? Care must be taken in interpreting Vitamin D results from different laboratories and methodologies. ??Published data demonstrated that results from patients undergoing hemodialysis may show a negative bias when tested with various automated 25-OH vitamin D assays when compared to LC-MS/MS. ?? When testing samples from patients whose predominant form of Vitamin D is Vitamin D2, such as patients receiving Vitamin D2 supplementation, results that are subtherapeutic should be confirmed with another method such as LC-MS/MS. Hepatitis B Surface Antibody NONREACTIVE Nonreactive [facility] Comment:Nonreactive: < 8.00 mIU/mL Alanine Aminotransferase 15 0 - 31 U/L [facility] Albumin Level 3.8 3.5 - 5.0 g/dL [facility] Alkaline Phosphatase 76 39 - 117 U/L [facility] Aspartate Amino Transferase 21 5 - 31 U/L [facility] Bilirubin Direct 0.2 0.0 - 0.5 mg/dL [facility] Bilirubin Total 0.6 0.0 - 1.0 mg/dL [facility] Total Protein 7.0 6.5 - 8.0 g/dL [facility] HIV AB/AG Nonreactive Nonreactive [facility] Comment: HIV-1 p24 Ag and/or HIV-1/HIV-2 Ab not detected. ?? A test result that is nonreactive does not exclude the possibility of exposure to or infection with HIV-1 and/or HIV-2. Nonreactive results in this assay for individuals with prior exposure to HIV-1 and/or HIV-2 may be due to antigen and antibody levels that are below the limit of detection of this assay. ?? The [facility] [employer] HIV Ag/Ab Combo assay result and supplemental assay results should be interpreted in conjunction with the patient's clinical presentation, history and other laboratory results. ??If the results are inconsistent with clinical evidence, additional testing is suggested to confirm the result. Anion Gap 11(L) 12 - 20 [facility] Comment: Blood Urea Nitrogen 16 9 - 16 mg/dL [facility] Calcium 9.3 8.4 - 10.2 mg/dL [facility] Carbon Dioxide 29 22 - 29 mmol/L [facility] Chloride 105 96 - 108 mmol/L [facility] Creatinine, Serum 0.68 0.5 - 1.4 mg/dL [facility] Estimated Glomerular Filt Rate >60 [facility] Comment: NOTE: ??For -[place] individuals, multiply the result ?by 1.210. ?? Chronic Kidney Disease: ??Estimated GFR < 60 mL/min/1.73m2 Severe Kidney Disease: ??Estimated GFR < 15 mL/min/1.73m2 Glucose Random 87 60 - 115 mg/dL [facility] Potassium 4.4 3.3 - 5.1 mmol/L [facility] Sodium 141 135 - 145 mmol/L [facility] Hepatitis B Surface Antigen Negative Negative [facility] Cholesterol 161 mg/dL [facility] Comment: Desirable Cholesterol: ?less than 200 mg/dL Borderline High Cholesterol: ??200-239 mg/dL High Cholesterol: ? greater than 239 mg/dL HDL Cholesterol 69 mg/dL [facility] Comment: Desirable HDL: ??greater than 40 mg/dL ?? Note: This HDL assay may give artificially ? low results in patients with liver disease. LDL Cholesterol Calculated 82 mg/dl [facility] Comment: Desirable LDL: ? less than 100 mg/dL Near Optimal/Above Optimal LDL: ??110-129 mg/dL Borderline High LDL: ? 130-159 mg/dL High LDL: ?160-189 mg/dL Very High LDL: ? greater than or equal to ?190 mg/dL Triglycerides 51 mg/dL [facility] Comment: Desirable Triglyceride: ? less than 150 mg/dL Borderline High Triglyceride ??150-199 mg/dL High Triglyceride: ?200-499 mg/dL Very High Triglyceride: ? greater than or equal to ? 5OO mg/dL CT PCR NOT DETECTED Not Detect. [facility] Comment: A not detected test result does not exclude the possibility of infection because test results can be affected by improper specimen collection, concurrent antibiotic therapy, or the number of organisms in the specimen which may be below the sensitivity of the test. ??As with many diagnostic tests, results from the Xpert CT/NG assay should be interpreted in conjunction with other laboratory and clinical data available to the clinician. ?? The Xpert CT/NG assay should not be used for the evaluation of suspected sexual abuse or for other medico-legal indications. ??Additional testing is recommended in any circumstance when false positive or false negative results could lead to adverse medical, social or psychological consequences. NG PCR NOT DETECTED Not Detect. [facility] Comment: A not detected test result does not exclude the possibility of infection because test results can be affected by improper specimen collection, concurrent antibiotic therapy, or the number of organisms in the specimen which may be below the sensitivity of the test. ??As with many diagnostic tests, results from the Xpert CT/NG assay should be interpreted in conjunction with other laboratory and clinical data available to the clinician. ?? The Xpert CT/NG assay should not be used for the evaluation of suspected sexual abuse or for other medico-legal indications. ??Additional testing is recommended in any circumstance when false positive or false negative results could lead to adverse medical, social or psychological consequences. Hepatitis C Antibody Nonreactive Nonreactive [facility] Comment: Antibodies to HCV not detected; does not exclude early acute HCV infection. Creatinine Urine 148.77 mg/dL [facility] Microalbum/Creatin ine Ratio Ur 4.0 ug/mg cr [facility] Comment: ?Albumin/Creatinine Ratio Reference Ranges: ? Normal: < 30 ug/mg creatinine ? Microalbuminuria: ??30 - 300 ug/mg creatinine Clinical Albuminuria: ??> 300 ug/mg creatinine Microalbumin Urine 6.0 mg/L [facility] Cholesterol 161 mg/dL [facility] Comment: Desirable Cholesterol: ?less than 200 mg/dL Borderline High Cholesterol: ??200-239 mg/dL High Cholesterol: ? greater than 239 mg/dL HDL Cholesterol 69 mg/dL [facility] Comment: Desirable HDL: ??greater than 40 mg/dL ?? Note: This HDL assay may give artificially ? low results in patients with liver disease. LDL Cholesterol Calculated 82 mg/dl [facility] Comment: Desirable LDL: ? less than 100 mg/dL Near Optimal/Above Optimal LDL: ??110-129 mg/dL Borderline High LDL: ? 130-159 mg/dL High LDL: ?160-189 mg/dL Very High LDL: ? greater than or equal to ?190 mg/dL Triglycerides 51 mg/dL [facility] Comment: Desirable Triglyceride: ? less than 150 mg/dL Borderline High Triglyceride ??150-199 mg/dL High Triglyceride: ?200-499 mg/dL Very High Triglyceride: ? greater than or equal to ? 5OO mg/dL Alanine Aminotransferase 15 0 - 31 U/L [facility] Albumin Level 3.8 3.5 - 5.0 g/dL [facility] Alkaline Phosphatase 76 39 - 117 U/L [facility] Aspartate Amino Transferase 21 5 - 31 U/L [facility] Bilirubin Direct 0.2 0.0 - 0.5 mg/dL [facility] Bilirubin Total 0.6 0.0 - 1.0 mg/dL [facility] Total Protein 7.0 6.5 - 8.0 g/dL [facility] Hematocrit 42.0 37 - 47 % [facility] Hemoglobin 12.8 12.0 - 16.0 g/dl [facility] Mean Corpuscular Hemoglobin 27.6 27.0 - 33.0 pg [facility] Mean Corpuscular HGB Conc 30.5(L) 31.0 - 35.0 g/dl [facility] Mean Corpuscular Volume 90.5 80 - 98 fL [facility] Mean Platelet Volume 11.0 9.4 - 12.3 fL [facility] NRBC Abs Auto 0.000 0.0 - 0.012 X10*3/uL [facility] NRBC Pct Auto 0.0 0.0 - 0.2 /100WBC [facility] Platelet Count 190 160 - 400 X10*3/uL [facility] Red Blood Count 4.64 4.20 - 5.50 X10*6/uL [facility] Red Cell Distribution Width 14.1 11.0 - 16.0 % [facility] White Blood Count 4.9 4.8 - 10.8 X10*3/uL [facility] Anion Gap 11(L) 12 - 20 [facility] Comment: Blood Urea Nitrogen 16 9 - 16 mg/dL [facility] Calcium 9.3 8.4 - 10.2 mg/dL [facility] Carbon Dioxide 29 22 - 29 mmol/L [facility] Chloride 105 96 - 108 mmol/L [facility] Creatinine, Serum 0.68 0.5 - 1.4 mg/dL [facility] Estimated Glomerular Filt Rate >60 [facility] Comment: NOTE: ??For -[place] individuals, multiply the result ?by 210. ?? Chronic Kidney Disease: ??Estimated GFR < 60 mL/min/1.73m2 Severe Kidney Disease: ??Estimated GFR < 15 mL/min/1.73m2 Glucose Random 87 60 - 115 mg/dL [facility] Potassium 4.4 3.3 - 5.1 mmol/L [facility] Sodium 141 135 - 145 mmol/L [facility] Thyroid Stimulating Hormone 0.66 0.32 - 4.0 uIU/mL [facility] Comment:TSH 3rd Generation ( [facility]) Free T4 (Free Thyroxine) 1.11 0.71 - 1.85 ng/dL [facility] Syphilis Screen Nonreactive Nonreactive [facility] 01/19/2021 8:25 AM EDT Anushka Figueredo DO HISTORICAL/NON ORDERABLE LAB S Final Result [facility] [address] * Hm Colonoscopy (11/07/2014 3:46 PM EST) Historical Provider HEALTH MAINTENANCE Final Result from Last 3 Months or Most Recently Relevant to Health Maintenance Insurance [facility] Care Teams Health Information Assistant Relationship Specialty Start Date End Date Anushka Figueredo DO [address] [place] [id number] PCP - General Family Medicine 10/03/18
== END 2024-11-30 07:43 | disposition home or self-care (01) ==
LOC: HO.US 07:42
PROVIDERS: PCP Family Medicine; Visit Provider Family Medicine
DX: K76.0 Fatty (change of) liver, not elsewhere classified (principal)
CPT/HCPCS: 76700

== ENCOUNTER → 2024-11-30 07:44 | Outpatient (BNV) | payer OTHER, SELFPAY | PROVIDERS: PCP Family Medicine; Visit Provider Radiology Diagnostic Radiology | DX: R16.0 Hepatomegaly, not elsewhere classified (principal); K76.0 Fatty (change of) liver, not elsewhere classified | CPT/HCPCS: 76700 ==

== ENCOUNTER 2024-11-30 09:02 | Outpatient (RCR) | payer OTHER, SELFPAY | END 2024-11-30 09:55 | disposition home or self-care (01) | LOC: HO.PT 09:02 | PROVIDERS: PCP Family Medicine; Visit Provider Student in an Organized Health Care Education/Training Program | DX: G44.86 Cervicogenic headache (principal) | CPT/HCPCS: 97110; 97140; 97161 ==

== ENCOUNTER 2024-12-18 08:36 | Outpatient (AMB) | payer OTHER, SELFPAY ==
[2024-12-18 08:38] VITALS: BP 118/72; PULSE 63; O2SAT 96; BMI 47.4
--- NOTE | 2024-12-18 08:38 | A.OFFVIS_ITS ---
Vital Signs 12/18/24 08:38 Height 5 ft Weight 242 lb 8.136 oz BMI 47.4 BP 118/72 Blood Pressure Location Rt brachial Position Sitting Pulse 63 Pulse Source Pulse Oximeter Pulse Oximetry (%) 96 Oxygen Delivery Method Room Air Intake Visit Reasons: Pituitary macroadenoma Intake Note: New patient present today for Pituitary Macroadenoma. 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: No Accompanied by: Self / Same As Patient Allergies BANDAIDS Allergy (Intermediate, Uncoded 12/18/24 08:40) BLISTERS STERI-STRIPS Allergy (Intermediate, Uncoded 12/18/24 08:40) BLISTERS Medication List - Last Reconciled 12/18/24 by Albina Barker MD acetaminophen 650 mg (2 x 325 mg) PO Q6H PRN 30 days albuterol sulfate 90 mcg/actuation 2 puffs inhalation Q4H PRN amitriptyline 50 mg PO BEDTIME amlodipine 10 mg PO DAILY celecoxib 200 mg PO DAILY cholecalciferol (vitamin D3) (Vitamin D3) 50 mcg PO QAM gabapentin 300 mg PO TID loratadine 10 mg PO DAILY magnesium oxide 400 mg PO naloxone 4 mg/actuation (Narcan) 1 spray intranasal ONCE PRN nystatin 1 appl topical ONCE PRN oxybutynin chloride ER 10 mg PO DAILY oxycodone 5 mg PO Q8H PRN sennosides 17.2 mg PO DAILY vit C,M-Mm-fcfoq-lutein-zeaxan 250-90-40-1 mg (PreserVision AREDS-2) 1 cap PO DAILY HPI Comments Details: 64 YO Female with a PMHx 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 She was previously seeing Dr. Andres, last visit March 2023. HPI from prior visit She was hospitalized in early September 2021 after she presented to the ED with headache and blurred vision. She underwent a pituitary MRI at that time which revealed a 3.2 cm pituitary mass with extension into the R cavernous sinus. There was concern for pituitary apoplexy so she was started on stress dose steroids. Unfortunately she was also found to be COVID positive at that time. Attempt was made to transfer her to [facility] under the care of ne urosurgery, but no beds were available. Attempt was also made to transfer her to to [facility], again with no beds available. 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 She was subsequently transferred to [facility] under the care of neurosurgeon Dr. Alberto. While at [facility] a repeat Pituitary MRI was completed. Per Dr. Alberto's report there appeared to be no evidence of pituitary apoplexy, and her mass had not significantly enlarged. She was discharged to home with instructions to follow up as an outpatient. She had a repeat Pituitary MRI 11/17/2021 which revealed the mass had slightly decreased in size to 2.7 cm, but still with complete invasion of the cavernous sinus. The optic apparatus did not appear compromised. She was able to obtain the images and send to Dr. Alberto. She reports that decision was made to postpone surgery at that time as her pituitary macroadenoma had decreased in size. Since that time her appointments with Dr. Alberto have continued to be postponed, and she has not seen him in follow up. She was seen F/U in Nov 2021. We repeated her labs at her last visit which revealed her TFTs to be WNL, but her am cortisol was low with elevated ACTH. Her prednisone had been discontinued upon discharge from [facility]. We resumed her on Prednisone 5 mg PO daily at that time. She takes this without fail. She also did obtain her medical alert bracelet which she wears daily, and she also has her [employer] emergency injection kit and completed administration education with our nurse. Given her elevated ACTH a dexamethasone suppression test was completed, which did not suppress appropriately. Labs after 1 mg overnight DSST with ACTH 49, Cortisol 3.8 and Dex level 369. She held her morning prednisone before the test, and took this after. We then repeated her 1 mg overnight dexamethasone suppression test 08/06/2022 with ACTH 44, Cortisol 1.8 and Dexamethasone 327. She was asked to complete a salivary cortisol profile, which effectively ruled out eleno's disease and was WNL. She was successfully weaned off her prednisone, and is not taking any prednisone at this time. Her most recent am labs when off prednisone entirely are WNL other than mildly elevated ACTH. She underwent a repeat Pituitary MRI 08/05/2022, which reveals a 2.4 cm sellar mass, unchanged from 03/2022. She was referred to Dr. Safia Jay of [facility] Neurosurgery. She saw him 04/27/2022. He recommended continued surveillance. He did continue with concern for eleno's disease and referred Gretel to Dr. Gillian Nicholson at [facility] Neuroendocrinology. She repeated her 24 hour urine free cortisol, which was WNL. She also completed 2 midnight salivary cortisol levels, both WNL. She had a F/U visit with Dr. Flores the 12/28/2023 to further discuss surgery. At that time they discussed the risk/benefit of surgical debulking of her pituitary tumor, and she opted to not pursue surgery. Interval history Says last MRI July 2023 was at [facility], I dont have records of this optho:sees at [facility], sees every year, per patient they do visual quevedo , has upcoming appt in January 2025, we will obtain records , currently denies any double or blurry vision . [facility], but no records of this NSG: hasnt seen since 2022, per patient only recc as needed fup MRI : last done at [facility] in 2022? We dont have this Pituitary labs: none recently Continues to have her chronic headaches, was following with neurologist, Dr. Miller in [facility] , last seen Sep 2024, was told headaches are cervicogenic, was sent to PT, but it didnt help , has follow up with Dr. Miller January 03 2025 Does report intermittent dizziness only 2 episodes once last week , once 2 weeks ago, no weight loss or abdominal pain. No nausea or vomiting No history of DM, Has wellcontrolled HTN, no fractures. Had gained 10 lbs over the past year, walks 30 mins daily Physical exam General: sitting comfortably in no acute distress HEENT: normocephalic/atraumatic, EOM intact, visual quevedo grossly intact Neck: supple, symmetrical Cardiac: normal heart sounds Pulm: normal breath sounds B/L, no added breath sounds Abd: not distended, no tenderness Extremities: no edema, no signs of myxedema Neuro: AAO x3, Speech: normal, no facial droop, moving all 4 extremities Laboratory Tests 01/19/21 09/16/21 09/16/21 08:25 00:30 00:38 Free T4 1.11 TSH 0.17 L Total T3 Estradiol Ultra LCMSMS Prolactin 21.5 FSH Prolactin Undiluted Luteinizing Hormone DHEA Sulfate Sex Hormone Bind Glob Somatomedin-C Somato-C Z-Score Female Random Cortisol ACTH Urine Total Volume Ur Creatinine 24 Hour Ur Free Cortisol 24 Hr Saliva Cortisol Dexamethasone 09/16/21 09/16/21 11/02/21 14:31 17:35 09:20 Free T4 1.12 TSH 0.91 Total T3 Estradiol Ultra LCMSMS Prolactin FSH Prolactin Undiluted 21.8 Luteinizing Hormone DHEA Sulfate Sex Hormone Bind Glob Somatomedin-C 167 Somato-C Z-Score Female Random Cortisol ACTH Urine Total Volume Ur Creatinine 24 Hour Ur Free Cortisol 24 Hr Saliva Cortisol Dexamethasone 11/26/21 02/17/22 03/24/22 10:07 07:20 08:05 Free T4 1.03 1.08 TSH 0.84 1.37 Total T3 142 126 Estradiol Ultra LCMSMS Prolactin FSH Prolactin Undiluted 6.4 8.1 Luteinizing Hormone DHEA Sulfate 85 Sex Hormone Bind Glob Somatomedin-C 79 88 Somato-C Z-Score Female Random Cortisol 6.3 14.3 3.8 ACTH 72 H 49 Urine Total Volume Ur Creatinine 24 Hour Ur Free Cortisol 24 Hr Saliva Cortisol Dexamethasone 369 06/18/22 07/16/22 08/03/22 07:55 09:36 07:23 Free T4 TSH Total T3 Estradiol Ultra LCMSMS Prolactin FSH Prolactin Undiluted Luteinizing Hormone DHEA Sulfate 101 93 Sex Hormone Bind Glob Somatomedin-C Somato-C Z-Score Female Random Cortisol 11.3 5.3 12.2 ACTH 48 38 72 H Urine Total Volume Ur Creatinine 24 Hour Ur Free Cortisol 24 Hr Saliva Cortisol Dexamethasone 08/06/22 08/10/22 08/10/22 08:14 08:00 09:00 Free T4 TSH Total T3 Estradiol Ultra LCMSMS Prolactin FSH Prolactin Undiluted Luteinizing Hormone DHEA Sulfate Sex Hormone Bind Glob Somatomedin-C Somato-C Z-Score Female Random Cortisol 1.8 ACTH 41 Urine Total Volume Ur Creatinine 24 Hour Ur Free Cortisol 24 Hr Saliva Cortisol 0.21 0.12 Dexamethasone 327 08/10/22 08/10/22 08/10/22 12:00 13:00 20:00 Free T4 TSH Total T3 Estradiol Ultra LCMSMS Prolactin FSH Prolactin Undiluted Luteinizing Hormone DHEA Sulfate Sex Hormone Bind Glob Somatomedin-C Somato-C Z-Score Female Random Cortisol ACTH Urine Total Volume Ur Creatinine 24 Hour Ur Free Cortisol 24 Hr Saliva Cortisol 0.08 0.04 0.05 Dexamethasone 08/10/22 11/15/22 11/16/22 21:00 09:06 03:15 Free T4 1.05 TSH 1.17 Total T3 178 Estradiol Ultra LCMSMS Prolactin 6.6 FSH 34.6 Prolactin Undiluted 6.1 Luteinizing Hormone 16.7 DHEA Sulfate Sex Hormone Bind Glob 80 H Somatomedin-C 64 Somato-C Z-Score Female -1.2 Random Cortisol 9.6 ACTH 44 Urine Total Volume 1850 Ur Creatinine 24 Hour 1.04 Ur Free Cortisol 24 Hr 36.9 Saliva Cortisol 0.04 Dexamethasone 03/14/23 02/18/24 02/24/24 06:56 09:29 09:40 Free T4 1.24 1.08 TSH 1.50 0.86 Total T3 160 Estradiol Ultra LCMSMS 15 Prolactin FSH 40.6 Prolactin Undiluted 8.4 Luteinizing Hormone 19.4 DHEA Sulfate Sex Hormone Bind Glob 77 H Somatomedin-C 69 Somato-C Z-Score Female -1.1 Random Cortisol 17.9 ACTH 93 H 50 Urine Total Volume Ur Creatinine 24 Hour Ur Free Cortisol 24 Hr Saliva Cortisol Dexamethasone Pituitary MRI: 08/05/2022 FINDINGS: There is redemonstration of a mildly enhancing mass centered within the right aspect of the sella extending into the right cavernous sinus and through the anterior sellar wall into the posterior aspect of the right more than left sphenoid sinus. The lesion maximally measures up to 2.4 cm in maximal AP dimension which is unchanged compared with 03/04/2022. The lesion does not compress the optic apparatus. 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 The infundibulum is normal thickness and morphology and inserts to the left of midline. There is some degree of invasion of the superior aspect of the clivus. There is no acute infarction, hemorrhage, or extra-axial fluid collection. There is no brain parenchymal mass or abnormal intracranial enhancement. The ventricles are normal in size without hydrocephalus. A few minimal nonspecific foci of T2/FLAIR hyperintensity seen within the white matter. The major arterial flow voids are preserved the skull base. The orbital contents appear normal. Mild paranasal sinus mucosal thickening. MR/MR head/brain wo/w con IMPRESSION: Redemonstration of mildly enhancing mass centered within the right aspect of the sella extending into the right cavernous sinus and through the anterior sellar wall into the posterior aspect of the right more than left sphenoid sinus. The lesion measures up to 2.4 cm in maximal AP dimension and is unchanged compared with 03/04/2022. No mass effect on the optic apparatus. No acute intracranial abnormality. MR BRAIN WITHOUT AND WITH CONTRAST 03/04/22 CLINICAL INFORMATION: Pituitary mass. Self-reported blurry vision. Left high. Double vision. COMPARISON: MRI brain 09/16/2021, 11/17/2021 TECHNIQUE: Multiplanar, multisequence MRI of the brain was obtained before and after the intravenous administration of 5 mL Gadavist. Reticular protocol MRI sequences are obtained. FINDINGS: An enhancing tumor is present in the sella with partial extension the suprasellar cistern and sphenoid sinus with possible erosion and extension to the clivus. The lesion demonstrates approximately 180 degree continuity with the cavernous portion of the right internal carotid artery and approximate 90 degrees continuity with the cavernous portions of the left internal carotid artery. Mild leftward deviation of the pituitary stalk is identified. The lesion is slightly diminished in size compared with 11/17/2021 currently measuring 2.4 cm x 1.8 cm x 1.3 cm (lateral by AP by SI). Contemporaneous measurements applied to the exam of 11/17/2021 demonstrate that in similar dimensions the lesion previously measured 2.7 cm x 2.3 cm x 1.5 cm. Diminished in size of a lesion is visualized to good advantage on coronal postcontrast enhanced images. For example, compare series 9 image 17 on the current exam with series 10 image 11 on the comparison exam which demonstrates decreased right inferolateral extent of the lesion is slightly decreased extent of the right superolateral aspect of the lesion. Lesion partially effaces the suprasellar cistern but does not impinge upon the optic chiasm. No acute intracranial infarcts or acute intercranial hemorrhage noted. The valeria cervical junction cerebellar tonsils are normal in appearance. Orbits and globes are normal in appearance making allowances for motion artifact. MR/MR head/brain wo/w con IMPRESSION: *Pituitary tumor slightly decreased in size compared with 11/17/2020 and definitively decreased in size compared with 09/16/2021. The lesion currently measures 2.4 cm x 1.8 cm x 1.3 cm (lateral by AP by SI) and measured 2.7 cm x 2.3 cm x 1.5 cm in similar dimensions on the comparison study of 11/17/2020. Lesion demonstrates evidence of invasion of the right cavernous sinus, clivus and sphenoid sinus with partial encasement of the cavernous portion of the right internal carotid artery which remains patent. No lesion does not exert mass effect upon the optic chiasm. MR BRAIN WITHOUT AND WITH CONTRAST 11/17/21 CLINICAL INFORMATION: 61-year-old undergoing follow-up for pituitary neoplasm. COMPARISON: 09/16/2021 MRI. TECHNIQUE: Multiplanar, multisequence MRI of the brain/sella was obtained before and after the intravenous administration of 5 mL Gadavist. FINDINGS: The posterior aspect of the previously noted sellar mass has diminished in height centrally, now measuring 0.8 cm in craniocaudal height at the level of the infundibulum compared to 1.6 cm on the previous exam. Again noted, is right-sided cavernous sinus involvement, somewhat improved from previous exam with diminished maximum transverse dimension of this mass, now measuring 2.7 cm compared to 3.3 cm on the previous study. Left cavernous sinus involvement is again noted. The anterior margin of the mass measures 2 cm maximum craniocaudal dimension in the sagittal plane, which is slightly diminished in size by 3 mm from previous exam. Maximum sagittal dimension of the mass is 2.6 cm compared to 3 cm on previous study. The mass erodes the floor of the sella asymmetric to the right and extends anterolaterally into the sphenoid sinus asymmetric to the right with diminished bulk invading the sphenoid sinus since previous exam. The infundibulum enhances normally and is deviated slightly to the left but slightly improved in terms of deviation and enhancement. The prechiasmatic optic nerves, chiasm and optic tracts appear uncompromised. No focal reduced diffusion is seen to suggest acute or subacute cerebral ischemia. Redemonstrated are scattered nonenhancing punctate T2 hyperintensities in the white matter of both cerebral hemispheres largely unchanged in appearance, likely reflecting minimal chronic ischemic microangiopathy. No other intracranial mass lesions, abnormal enhancement, space-occupying process or mass effect are identified. No extra-axial fluid collections are seen. The ventricular system is normal in appearance with no hydrocephalus, stable in appearance. Signal voids are seen in the visualized major intracranial vessels. There is mild mucosal thickening in the ethmoid complex, stable in appearance. Probable small retention cyst right maxillary sinus on current study. MR/MR head/brain wo/w con IMPRESSION: 1. Previously noted pituitary mass has diminished in overall bulk. See above for measurements in 3 dimensions. 2. No acute intracranial process. Stable minimal chronic ischemic microangiopathy. MR BRAIN WITHOUT AND WITH CONTRAST 09/16/21 CLINICAL INFORMATION: Pituitary mass. COMPARISON: CTA had from 09/16/2021. TECHNIQUE: MRI of the brain was obtained using routine sequences without and following the administration of 5 mL of Gadavist intravenous contrast. FINDINGS: There is a lobulated, weakly enhancing soft tissue mass filling the sella turcica that extends into the sphenoid sinus, measuring 3.2 x 2.7 x 1.9 cm. Associated heterogeneous T2 signal within this lesion. The lesion extends into the right greater than left aspects of the cavernous sinus and appears to fully encase the cavernous segment of the right ICA. There appears to be approximately 50% encasement of the cavernous segment of the left ICA. The lesion fills the suprasellar cistern and mildly abuts the undersurface of the optic chiasm. The pituitary infundibulum is mildly deviated to the left. No focal restricted diffusion is demonstrated to suggest acute or subacute cerebral ischemia. No evidence of acute or chronic hemorrhagic products on heme-sensitive imaging. Scattered periventricular and deep white matter T2 FLAIR hyperintensities consistent with mild underlying microangiopathy. The ventricles are normal in morphology and size. No abnormal mass effect. No midline shift. The cerebellar tonsils are normally positioned. Normal arterial and venous vascular flow voids are present. No additional abnormal contrast enhancement. Normal, homogeneous marrow signal. Moderate degenerative spondyloarthropathy of the visualized upper cervical spine. Mild mucosal thickening of the paranasal sinuses. No signal abnormalities within the mastoids. MR/MR head/brain wo/w con IMPRESSION: 1. 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 A portion of this lesion extends into the sphenoid sinus. The lesion appears to invade the right greater than left aspects of the cavernous sinus with complete encasement of the cavernous segment of the right ICA. There appears to be approximately 50% encasement of the cavernous segment of the left ICA. 2. No additional acute intracranial abnormalities. Mild underlying microangiopathy. No additional abnormal intracranial enhancement. Labs: Laboratory Tests 08/03/22 08/03/22 08/03/22 07:23 07:23 07:23 DHEA Sulfate 93 Random Cortisol 12.2 ACTH 72 H Dexamethasone 08/06/22 08/06/22 08/06/22 08:14 08:14 08:14 DHEA Sulfate Random Cortisol 1.8 ACTH 41 Dexamethasone 327 PFSH Medical History Goiter Pituitary macroadenoma COVID-19 vaccine series completed Wears dentures Hx of radiation therapy Cancer Back pain Arthritis History of headache Personal history of tuberculosis Asthma HTN (hypertension) Impingement syndrome of right shoulder Surgical History Status post arthroscopy of right knee Hx of hand surgery History of revision of total knee arthroplasty Hx of dilation and curettage Hx of hysterectomy Hx of total knee replacement History of sleeve gastrectomy Hx of foot surgery History of lumpectomy of right breast H/O colonoscopy Family History Father No problems noted. Mother No problems noted. 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) Alcohol intake: never Comment: sleeping Patient Tobacco Use Status: Never used Tobacco service: No Current occupational status: disabled Current occupation: Right Handed Physical Exam Vital Signs: Last Vital Signs Pulse 63 12/18/24 08:38 BP 118/72 12/18/24 08:38 Pulse Ox 96 12/18/24 08:38 Oxygen Delivery Method Room Air 12/18/24 08:38 BMI result Body Mass Index 47.4 Assessment & Plan Assessment & Plan (1) Pituitary macroadenoma: Code(s): D35.2 - Benign neoplasm of pituitary gland Category: Medical Plan: Patient with a 2.4 cm pituitary macroadenoma with invasion of the R cavernous s inus and resultant cavernous sinus syndrome as well as spehnoid sinus found inuitally in 2020. S she was hospitalized for diplopia in suspected to have pituitary apoplexy. She was on prednisone for some time around those years, however then taken off prednisone in 2021 when adrenal insufficiency was ruled out. 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 However she is on your endocrinology at [facility], and testing there was unremarkable with normal 24 hour urine cortisol, normal salivary cortisol and normal dexamethasone suppression test. She has had normal salivary cortisol levels in our system as well as normal 24 hour urine cortisol levels. These were all done about 2 years ago. She has well-controlled hypertension, no history of diabetes, however she has been gaining weight consistently over the last few years. She has a history of bariatric surgery in the past, however she has regained all of her weight. At this time I will repeat 24 hour urine cortisol levels. We will also do a pituitary panel. Her last MRI of the pituitary was in 2022 apparently at [facility], I do not have records of these, we will try to obtain but it is also time to repeat her MRI. She continues to have headaches that are at this point chronic, and she is seeing Neurology at [facility], who thing this are cervicogenic headaches. She was also evaluated by Neurosurgery at [facility] in 11/2022 where it was decided that surgical debulking could be considered for her tumor, however after discussion regarding risks versus benefits, patient decided to not go ahead with surgery. Especially since it is not clear whether her headaches are a consequence of her pituitary mass. At this point I will have her do an MRI of her pituitary, she might benefit from a follow up with neurosurgery depending on the findings. She does not have any signs of adrenal insufficiency. No acute vision changes, new headaches. She was previously seeing Ophthalmology at [facility] at some point, however no records of these. Over the last 2 years or so she transitioned her ophthalmology care to [facility], she is not sure as she is seeing an mortgage loan funder or an stamp machine servicer, I will try to obtain these records. Per patient they do her visual quevedo. She has an appointment coming up in January 2025. Plan: -ordered MRI of the pituitary -ordered pituitary panel -ordered 24 hour urine cortisol/creatinine levels -we will also check serum osmolality, urine osmolality, urine sodium when she does blood work, as she is also complaining of nocturia -follow up in 8 weeks to discuss results -obtain ophthalmology records from [facility] -obtain records of last MRI of the pituitary done in [facility] in 2022 Plan I spent 45 minutes in reviewing the record, seeing the patient and documenting in the medical record. Orders: Orders Adrenocorticotropic Hormone Today D35.2 - Benign neoplasm of pituitary gland Prolactin Today D35.2 - Benign neoplasm of pituitary gland Free T4 (Free Thyroxine) Today D35.2 - Benign neoplasm of pituitary gland Human Growth Hormone Today D35.2 - Benign neoplasm of pituitary gland Thyroid Stimulating Hormone Today D35.2 - Benign neoplasm of pituitary gland Osmolality, Serum Today D35.2 - Benign neoplasm of pituitary gland MR head/brain wo/w con Today E23.6 - Other disorders of pituitary gland Estradiol Ultra Sensitive Today D35.2 - Benign neoplasm of pituitary gland Basic Metabolic Panel Today D35.2 - Benign neoplasm of pituitary gland Follicle Stimulating Hormone Today D35.2 - Benign neoplasm of pituitary gland Sex Hormone Binding Globulin Today D35.2 - Benign neoplasm of pituitary gland Cortisol Random Today D35.2 - Benign neoplasm of pituitary gland IGF-1 (Somatomedin C) Today D35.2 - Benign neoplasm of pituitary gland Lutenizing Hormone Today D35.2 - Benign neoplasm of pituitary gland Cortisol, Free 24Hr Urine Today D35.2 - Benign neoplasm of pituitary gland Creatinine, 24 Hr Group Today D35.2 - Benign neoplasm of pituitary gland Osmolality Urine Today D35.2 - Benign neoplasm of pituitary gland Sodium Urine Random Today D35.2 - Benign neoplasm of pituitary gland Patient Instructions: Do MRI brain, someone will call you to schedule this Do 24 hr urine collection 24 hr urine collection instructions You have been asked to collect your urine for 24 hours to assess for cortisol excretion. You must choose a 24 hour period of time when you will be home. The morning of the first day, DISCARD the FIRST morning void and then note the time. You will collect every single void from then on for 24 hours. For example, if you wake up at 6am and urinate, flush down that void. You will then collect every drop of urine all day and all night through 6am the following day. You will urinate one last time at 6am for the collection. The jug of urine must be kept in the refrigerator until you bring it to the lab. 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
--- OUTSIDE RECORDS SUMMARY | 2024-12-18 08:53 | XMS_ITS | Encounter Summary ---
Author Organization [employer] Address [address] [place] [address] [address] [place] [address] Care Team Providers Care Bow Tacker Name Role Phone Anushka Figueredo DO Primary Care Provider [phone] Reason for Visit * Reason Onset Date Comments Nurse Triage 08/14/2024 Encounter Details Date Type Department Care Team ([facility] st Contact Info) Description 08/14/2024 Telephone [facility] [address] [place] [address] Anushka Figueredo DO [address] [place] [address] Nurse Triage Social History Tobacco Use Types [...] Description 12/25/2024 9:45 AM EDT Office Visit [facility] [address] [place] [address] 02/13/2025 9:00 AM EDT Office Visit [facility] [address] [place] [address] Karon Merida, OD [address] [place] [address] documented as of this encounter Visit Diagnoses Not on filedocumented in this encounter Additional Health Concerns Assessment Noted Time PHQ-9 Depression Total Score: 4 07/24/20 24 9:07 AM EDT documented as of this encounter Care Teams Bow Tacker Relationship Specialty Start Date End Date Anushka Figueredo DO [address] [place] [address] PCP - General Family Medicine 10/03/18 documented as of this encounter
--- OUTSIDE RECORDS SUMMARY | 2024-12-18 08:53 | XMS_ITS | Encounter Summary ---
Author Organization [employer] Address [address] [facility] [address] [place] [address] Care Team Providers Care Washing Machine Operator Name Role Phone Anushka Figueredo DO Primary Care Provider [phone] Reason for Visit * Reason Onset Date Comments Appointment Request 09/11/2024 Encounter Details Date Type Department Care Team ([facility] st Contact Info) Description 09/11/[address] [facility] [address] [place] [address] Anushka Figueredo DO [address] [place] [address] Appointment Request Social History Tobacco Use Types [...] r/s apt for 09/11. Contact pt at [phone] documented in this encounter Plan of Treatment Upcoming Encounters Date Type Department Care Team ([facility] st Contact Info) Description 12/25/2024 9:45 AM EDT Office Visit [facility] [address] [place] [address] 02/13/2025 9:00 AM EDT Office Visit [facility] OPT[facility] [address] [place] [address] Fuad, Karon, OD [address] [place] [address] documented as of this encounter Visit Diagnoses Not on filedocumented in this encounter Additional Health Concerns Assessment Noted Time PHQ-9 Depression Total Score: 4 07/24/20 24 9:07 AM EDT documented as of this encounter Care Teams Washing Machine Operator Relationship Specialty Start Date End Date Anushka Figueredo DO [address] [place] [address] PCP - General Family Medicine 10/03/18 documented as of this encounter
--- OUTSIDE RECORDS SUMMARY | 2024-12-18 08:53 | XMS_ITS | Encounter Summary ---
Author Organization [employer] Address [address] [facility] [address] [place] [address] Care Team Providers Care Cyber Incident Responder Name Role Phone LorenaAnushka [email or web address] Primary Care Provider + [phone] Reason for Visit * Reason Comments Med Refill Encounter Details Date Type Department Care Team (Late st Contact Info) Description 08/03/2023 Refill [facility] [address] [place] [address] Janine Pulido MD [address] [place] [address] Dry eyes Social History Tobacco Use Types [...] Description 12/25/2024 9:45 AM EDT Office Visit [facility] [address] [place] [address] 02/13/2025 9:00 AM EDT Office Visit [facility] [address] [place] [address] Fuad, Karon, OD [address] [place] [address] documented as of this encounter Visit Diagnoses Diagnosis Dry eyes Unspecified tear film insufficiency documented in this encounter Additional Health Concerns Assessment Noted Time PHQ-9 Depression Total Score: 0 12/10/19 23 10:17 AM EST documented as of this encounter Care Teams Cyber Incident Responder Relationship Specialty Start Date End Date Anushka Figueredo DO [address] [place] [address] PCP - General Family Medicine 10/03/18 documented as of this encounter
--- OUTSIDE RECORDS SUMMARY | 2024-12-18 08:53 | XMS_ITS | Encounter Summary ---
Author Organization [employer] Address [address] [facility] [address] [place] [address] Care Team Providers Care School Crossing Guard Name Role Phone Roxannajane Anushka Primary Care Provider + [phone] Encounter Details Date Type Department Care Team ([facility] st Contact Info) Description 01/12/2024 Orders Only [facility] [address] [place] [address] ProviderSandra MD Social History Tobacco Use Types Packs/Day Years Used Date Smoking Tobacco: Never Passive Smoke Exposure: Never Smokeless Tobacco: Never Alcohol Use Standard Drinks/Week Comments Never 0 (1 standard drink = 0.6 oz pur e alcohol) Depression Answer Date Recorded Patient Health Questionnaire-9 Score 0 12/09/2022 Housing Stability Answer Date Recorded What is your housing situation today? I have [facility] 08/01/[address] you [...] Description 12/25/2024 9:45 AM EDT Office Visit [facility] [address] [place] [address] 02/13/2025 9:00 AM EDT Office Visit [facility] [address] [place], [place] [id number] Fuad, Karon, OD [address] [place] [address] documented as of this encounter Procedures Procedure [...] documented as of this encounter Care Teams School Crossing Guard Relationship Specialty Start Date End Date Anushka Figueredo DO [address] [place] [address] PCP - General Family Medicine 10/03/18 documented as of this encounter
--- OUTSIDE RECORDS SUMMARY | 2024-12-18 08:53 | XMS_ITS | Clinical Summary ---
Author Organization [employer] Address [address] [place] [address] [address] [place] [address] Care Team Providers Care Telegraph Office Manager Name Role Phone RoxannaAnushka lara Primary Care Provider + [phone] Allergies Active Allergy Reactions Criticality Noted Date Comments Bacitracin-Polymyxin B High 09/20/2024 Other Reaction(s): Rash with Blisters Latex High 09/20/2024 Other Reaction(s): Rash with Blisters Wound Dressing Adhesive 12/09/2022 Wound Dressings 12/09/2022 Medications baclofen (Lioresal) 10 MG tablet Take 1 tablet by mouth if needed in the morning, at noon, and at bedtime for muscle spasms. 022 Active methocarbamol (Robaxin) 750 MG tablet Take 1 tablet by mouth if needed in the morning and at bedtime for muscle spasms. 021 Active nystatin (Mycostatin) 423791 UNIT/GM powder Apply topically every 12 (twelve) hours. 021 Active albuterol 108 (90 Base) MCG/ACT inhaler Inhale 2 puffs every 4 (four) hours if needed. 021 Active fluticasone (Flonase) 50 MCG/ACT nasal sprayIndication s:Chronic allergic rhinitis USE 2 SPRAYS IN EACH NOSTRIL EVERY DAY 16 g 5 023 Active terbinafine (LamISIL) 250 MG tablet Take 250 mg by mouth in the morning. 023 Active hydrocortisone 2.5 % cream Apply topically if needed in the morning and at bedtime (itching). 28 g 1 023 Active naloxone (Narcan) 4 mg/0.1 mL nasal sprayIndication s:Chronic left shoulder pain Administer 1 spray (4 mg) into affected nostril(s) if needed for opioid reversal. spray 0.1 milliliter by intranasal route in 1 nostril may repeat dose every 2-3 minutes as needed alternating nostrils with each dose 2 each 2 Active senna (Senokot) 8.6 MG tablet TAKE 2 TABLETS BY MOUTH ONCE DAILY IN THE MORNING NEEDED FOR CONSTIPATION 180 tablet 3 024 Active lisinopril 30 MG tablet TAKE 1 TABLET BY MOUTH EVERY MORNING 90 tablet 3 024 Active Multiple Vitamins-Minera ls (PreserVision AREDS 2) capsuleIndicati ons:Dry eyes TAKE 1 CAPSULE BY MOUTH TWICE DAILY IN THE MORNING AND IN THE EVENING 180 capsule 3 Active amLODIPine (Norvasc) 10 MG tabletIndicatio ns:Essential hypertension TAKE 1 TABLET BY MOUTH EVERY MORNING 90 tablet 3 024 Active propranolol (Inderal) 20 MG tablet Take 20 mg by mouth 2 times daily. Active topiramate (Topamax) 25 MG tablet Take 25 mg by mouth at bedtime. Active loratadine (Claritin) 10 MG tabletIndicatio ns:Chronic allergic rhinitis TAKE 1 TABLET BY MOUTH EVERY MORNING 30 tablet 5 Active gabapentin (Neurontin) 300 MG capsule TAKE 1 CAPSULE BY MOUTH THREE TIMES DAILY IN THE MORNING, EVENING, AND BEDTIME 90 capsule 3 Active divalproex (Depakote ER) 250 MG 24 hr tablet Take 250 mg by mouth Once per day. Active amitriptyline (Elavil) 50 MG tablet Take 1 tablet (50 mg) by mouth at bedtime. 30 tablet 5 024 2024 Active cholecalciferol (Vitamin D-3) 50 MCG (1999) capsule Take 1 capsule (50 mcg) by mouth Once per day. 30 capsule 11 Active Magnesium 400 MG capsule Take 400 mg by mouth 2 times daily. 60 capsule 11 024 10/22/ 2025 Active Blood Pressure kit 1 each 1 (one) time per week. 1 kit Active oxybutynin XL (Ditropan-XL) 10 MG 24 hr tabletIndicatio ns:Urinary incontinence, unspecified type TAKE 1 TABLET BY MOUTH EVERY MORNING DO NOT BREAK, CRUSH, DISSOLVE OR CHEW 90 tablet 1 Active Skin Protectants, Misc. (eucerin) cream Apply topically if needed for wound care or dry skin. 396 g 3 025 2025 Active oxyCODONE (Roxicodone) 5 MG immediate release tabletIndicatio ns:Chronic pain of both knees TAKE 1 TABLET BY MOUTH EVERY 6 HOURS NEEDED FOR SEVERE PAIN 112 tablet Active albuterol (2.5 MG/3ML) 0.083% nebulizer solution INHALE 1 AMPULE USING A NEBULIZER EVERY 4 HOURS NEEDED FOR WHEEZING OR SHORTNESS OF BREATH 90 mL 1 Active Diclofenac Sodium 1 % gel Apply 1 Application topically if needed in the morning and at bedtime (pain). 50 g 2 025 Active acetaminophen (Tylenol 8 Hour) 650 MG ER tablet TAKE 1 TABLET BY MOUTH EVERY 6 HOURS NEEDED FOR PAIN 60 tablet 025 Active Diclofenac Sodium 1 % cream Apply 2 g topically if needed in the morning and at bedtime (pain). 120 g 3 024 2024 Discontinued(R eorder (will not trigger notification to Pharmacy)) acetaminophen (Tylenol 8 Hour) 650 MG ER tablet TAKE 1 TABLET BY MOUTH EVERY 6 HOURS NEEDED FOR PAIN 60 tablet 024 2024 Discontinued(R eorder (will not trigger notification to Pharmacy)) oxyCODONE (Roxicodone) 5 MG immediate release tabletIndicatio ns:Chronic pain of both knees TAKE 1 TABLET BY MOUTH EVERY 6 HOURS NEEDED FOR SEVERE PAIN FOR UP TO 28 DAYS 112 tablet 025 2024 Discontinued albuterol (2.5 MG/3ML) 0.083% nebulizer solution Take 3 mL by nebulization every 4 (four) hours if needed for shortness of breath or wheezing. 75 mL 1 025 2024 Discontinued Active Problems Problem Noted Date [...] Utox and pill count as expected from IMPROVEMENT ANALYST visit 02/01/24, so not performed today Regular [...] pain left shoulder and bilat knees Last IMPROVEMENT ANALYST Agreement: 10/16/24, Dr. Figueredo Assessment & Plan (10/16/2024 1:37 PM EST): Timeline: - 10/16/24: IMPROVEMENT ANALYST Renewal. Group visit, utox/pill count WNL Assessment [...] Last Assessment & Plan: Patient presented to [facility] on 09/16 with headache, double vision, right side ptosis following a knee replacement surgery on September 09. 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 Transferred to [facility] on [facility]/19 after not improving with steroids. [...] Assessment & Plan: Right knee arthroplasty at [facility] on September 09. Discharged home on aspirin [...] Encounters Date Type Department Care Team Description 12/18/2024 Travel 12/14/2024 Refill [facility] [address] [place] [address] Migue Craig MD 11/30/2024 Orders Only [facility] [address] [place] [address] Colleen Paulson MD 11/23/2024 Refill [facility] [address] [place] [address] Anushka Figueredo DO 11/21/2024 Telephone [facility] [address] [place] [address] Anushka Figueredo DO Results 11/20/2024 Refill [facility] [address] [place] [address] Anushka Figueredo DO Chronic pain of both knees 11/11/2024 Orders Only [facility] [address] [place] [address] Anushka Figueredo DO 10/31/2024 9:00 AM EST Office Visit [facility] [address] [place] [address] Anushka Figueredo DO Essential hypertension (Primary Dx); [...] for malignant neoplasm of colon 10/31/[address] [address] Anushka Figueredo, 10/31/2024 Travel 10/24/[address] [address] Anushka Figueredo, Durable Medical Equipment 10/23/2024 Refill [facility] [address] [place], [place] [phone] Anushka Figueredo, Chronic pain of both knees 10/19/2024 Patient Outreach [address] [address] Anushka Figueredo, Pre-visit Planning (SDOH screening negative and tobacco screening negative) 10/18/[address] [address] Mar Rick [place] Durable Medical Equipment (DME script Recliner to CCA.) 10/17/[address] [address] Anushka Figueredo DO Durable Medical Equipment (DME for Liners(L&C)/DME for Recliner(CCA)) 10/17/2024 Telephone [facility] [address] [place] [address] Anna Elizabeth FNP Durable Medical Equipment (10 in 1 pillow ) 10/16/2024 9:45 AM EST Office Visit [address] [address] Anna Elizabeth FNP Osteoarthritis, unspecified osteoarthritis type, unspecified site (Primary Dx); Chronic pain syndrome; Long-term current use of opiate analgesic 10/16/2024 Telephone [facility] [address] [place] [address] Anna Elizabeth FNP IMPROVEMENT ANALYST: Tier Level 10/16/[address] [address] Camila Chavez RN IMPROVEMENT ANALYST Renewal today 10/16/2024 Travel 09/25/2024 Refill [facility] [address] [place] [address] Anushka Figueredo, DO Chronic pain of both knees 09/25/2024 Refill [facility] [address] [facility] [place] [address] Anushka Figueredo, DO Chronic pain of both knees 09/19/2024 Refill [facility] [address] [place] [address] Janine Ley MD 09/19/2024 Telephone [facility] [address] [place] [address] Anushka Figueredo, DO Med Refill 09/19/2024 Refill [facility] [address] [place] [address] Migue Craig MD from Last 3 Months Immunizations Name Administration [...] 9:45 AM EDT Office Visit [facility] [address] [place], [place] [phone] 02/13/2025 9:00 AM EDT Office Visit [facility] [address] [place] [address] Fuad, Karon, OD [address] [place] [address] Health Maintenance Due Date Last Done Comments [...] Procedure Name Priority Date/Time Associated Diagnosis Comments US ABDOMEN COMPLETE Routine 11/30/2024 7 :44 AM EST Fatty liver POCT LINDSEY-14 URINE DRUG SCREEN Routine 10/16/2024 [...] Recently Relevant to Health Maintenance Results * US Abdomen Complete (11/30/2024 7:44 AM EST) Anatomical Region Laterality Modality Abdomen Ultrasound 11/30/2024 7:44 AM EST Narrative 11/30/2024 8:25 AM EST ? [facility] ?[address] ?[place] [address] ? Ultrasound Report ? Signed ? Patient: Tran Azeb,Gretel ?MR#: ?? [id number] ? : 1960 ?Acct:[id number] ? Age/Sex: 64 / F ?ADM Date: 02/28/25 ? Loc: HO.US ? Attending Dr: Anushka Figueredo DO ? Ordering Physician: Anushka Figueredo DO ?? Date of Service: 11/30/24 ?? Procedure(s): US abdomen complete ?? Accession Number(s): [id number] ? cc: Anushka Figueredo DO ? EXAMINATION: ??US ABDOMEN ? HISTORY: f/u fatty liver ? TECHNIQUE: Real-time grayscale ultrasound imaging of the abdomen was ?? performed and images were reviewed. ? COMPARISON: Comparison is made with the prior examination dated ?? 03/07/2019. ? FINDINGS: ?? Liver: ??The right lobe of the liver measures 16.5 cm in size. The left ?? lobe of the liver measures 11.4 cm in size. The liver demonstrates ?? increased echotexture, consistent with steatosis. ??No focal mass or ?? intrahepatic biliary ductal dilatation is identified. ? Gallbladder and biliary tree: The gallbladder is unremarkable, without ?? evidence of calculi, wall thickening, or pericholecystic fluid. ??There ?? is no sonographic Rico sign. ??The common bile duct is normal in ?? caliber measuring 6 mm. ? Kidneys: ??The right kidney measures 10.8 cm in length. The left kidney ?? measures 10.4 cm in length. ??The kidneys are unremarkable, without ?? evidence of masses, hydronephrosis, or calculi. ? Pancreas: The pancreatic head, neck, and body are unremarkable. The ?? pancreatic tail is obscured by bowel gas. ? Spleen: The spleen is normal in size and contour, measuring 7.9 cm in ?? length. ? Abdominal aorta and inferior vena cava: The visualized portions of the ?? abdominal aorta and inferior vena cava are normal in caliber. ? There is no free fluid in the abdomen. ? US/US abdomen complete ?? IMPRESSION: ? Hepatomegaly and hepatic steatosis. Otherwise unremarkable abdominal ?? ultrasound. ? Electronically signed by: ??Maulik Mcknight MD ??11/30/2024 08:22 AM EST ?? RP ? Dictated By: ?Maulik Mcknight MD ? Signed By: ?<Electronically signed by Maulik Mcknight MD in OV> ?11/30/24 0822 ? DD/ 0744 ? TD/TT: 11/30/24 0805 ? Manager Internet Retails Sales: ? Procedure Note Sree, Image - 11/30/[address] [address] Ultrasound Report Signed Patient: Garrick Kendall#: [id number] : 8Acct:[id number] Age/Sex: 64 / FADM Date: 11/30/24 Loc: HO.US Attending Dr: Anushka Figueredo DO Ordering Physician: Anushka Figueredo DO Date of Service: 11/30/24 Procedure(s): US abdomen complete Accession Number(s): [id number] cc: Anushka Figueredo DO EXAMINATION: US ABDOMEN HISTORY: f/u fatty liver TECHNIQUE: Real-time grayscale ultrasound imaging of the abdomen was performed and images were reviewed. COMPARISON: Comparison is made with the prior examination dated 03/07/2019. FINDINGS: Liver: The right lobe of the liver measures 16.5 cm in size. The left lobe of the liver measures 11.4 cm in size. The liver demonstrates increased echotexture, consistent with steatosis. No focal mass or intrahepatic biliary ductal dilatation is identified. Gallbladder and biliary tree: The gallbladder is unremarkable, without evidence of calculi, wall thickening, or pericholecystic fluid. There is no sonographic Rico sign. The common bile duct is normal in caliber measuring 6 mm. Kidneys: The right kidney measures 10.8 cm in length. The left kidney measures 10.4 cm in length. The kidneys are unremarkable, without evidence of masses, hydronephrosis, or calculi. Pancreas: The pancreatic head, neck, and body are unremarkable. The pancreatic tail is obscured by bowel gas. Spleen: The spleen is normal in size and contour, measuring 7.9 cm in length. Abdominal aorta and inferior vena cava: The visualized portions of the abdominal aorta and inferior vena cava are normal in caliber. There is no free fluid in the abdomen. US/US abdomen complete IMPRESSION: Hepatomegaly and hepatic steatosis. Otherwise unremarkable abdominal ultrasound. Electronically signed by: Maulik Mcknight MD 11/30/2024 08:22 AM [facility] Dictated By: Maulik Mcknight MD Signed By: <Electronically signed by Maulik Mcknight MD in OV> 11/30/24 0822 DD/ 0744 TD/TT: 11/30/24 0805 Manager Internet Retails Sales: us Anushka Figueredo DO IMG US PROCEDURES Final Resu lt * POCT LINDSEY-14 Urine Drug Screen (10/16/2024 1:06 PM EST) Oxycodone Screen, Urine Positive Urine Urine specimen obtained by clean catch procedure / Unknown 10/16/2024 1:06 PM EST Narrative Camila Chavez, RN - 10/16/2024 1:06 PM EST UTOX cup Lot#[id number] Exp. 06/27/26 Internal Pass Control us Anna Elizabeth ASBESTOS SURVEYOR POINT OF CARE TEST ENTER/EDIT ORDERABLES Final Result * BI Mammogram Screening Tomosynthesis Bilateral (05/16/2024 8:00 AM EDT) Anatomical Region Laterality Modality Breast Bilateral Mammography 05/16/2024 8:00 AM EDT Narrative 05/18/2024 4:20 PM EDT ? [facility] ? [address] ?[place] [address] ? Mammography Report ? Signed ? Patient: Tran Azeb,Gretel ?MR#: ?? [id number] ? : 1960 ?Acct:[id number] ? Age/Sex: 63 / F ?ADM Date: /14/24 ? Loc: HO.MAMMO ? Attending Samir Figueredo DO ? Ordering Physician: Anushka Figueredo DO ?Results: 2B ?? enign Findings ? Date of Service: 05/16/24 ?Follow Up: 1 Year From Orig ?? inal Mammogram ? Procedure(s): MM tomosynthesis screening BI ?? Accession Number(s): [id number] ? cc: Anushka Figueredo DO ? EXAMINATION: ?? MM SCREENING DIGITAL [...] by Shaunna Rene MD in OV> ? 08/16/24 1616 ? DD/DT: /14/24 0800 ? TD/TT: ? Manager [employer]ails Sales: ? Procedure Note Donotuseinterpreter, Image - 05/18/2024 [place] [facility] [address] [place] [address] Mammography Report Signed Patient: Garrick Kendall#: [id number] : 8Acct:[id number] Age/Sex: 63 / FADM Date: 05/16/24 Loc: [facility].MAMMO Attending Dr: Anushka Figueredo DO Ordering Physician: Anushka Figueredoults: 2B enign Findings Date of Service: 05/16/24Follow Up: 1 Year From Orig inal Mammogram Procedure(s): MM tomosynthesis screening BI Accession Number(s): [id number] cc: Anushka Figueredo DO EXAMINATION: MM SCREENING [...] in OV> 05/18/24 1616 DD/ 0800 TD/TT: Manager [employer] Sales: us Anushka Jurcsak DO IMG BI PROCEDURES Final Resu lt * (ABNORMAL) Lipid Panel, Standard (02/18/2024 9:29 AM EDT) Triglycerides 72 <150 mg/dL [facility] Comment:Desirable Triglyceri de: less than 150 mg/dLBorderline High Triglyceride 150-199 mg/dLHigh Triglyceride: 200-499 mg/dLVery High Triglyceride: greater than or equal to 5OO mg/dL Cholesterol 186 <200 mg/dL [facility] Comment:Desirable Cholestero l: less than 200 mg/dLBorderline High Cholesterol: 200-239 mg/dLHigh Cholesterol: greater than 239 mg/dL LDL Cholesterol Calculated 101(H) <100 mg/dL [facility] Comment:Desirable LDL: less than 100 mg/dLNear Optimal/Above Optimal LDL: 110- 129 mg/dLBorderline High LDL: 130-159 mg/dLHigh LDL: 160-189 mg/dLVery High LDL: greater than or equal to 190 mg/dL HDL Cholesterol 71 >40 mg/dL [facility] Comment:Desirable HDL: great er than 40 mg/dL Note: This HDL assay may give artificially low results in patients with liver disease. Blood Venous blood specimen / Unknown 02/18/2024 9:29 AM EDT 02/18/2024 9:29 AM EDT Anushka Figueredo DO LAB BLOOD ORDERABLES Final R esult [facility] [address] [place] [phone] * (ABNORMAL) Vitamin D 25-OH Total (01/19/2021 8:25 AM EDT) Vitamin D 25-OH Total 20.2 >30 ng/mL [facility] Comment: Health Based Reference Values* [...] LC-MS/MS. Hepatitis B Surface Antibody NONREACTIVE Nonreactive [facility] Comment:Nonreactive: < 8.00 mIU/mL Alanine Aminotransferase 15 0 - 31 U/L [facility] Albumin Level 3.8 3.5 - 5.0 g/dL [facility] Alkaline Phosphatase 76 39 - 117 U/L [facility] Aspartate Amino Transferase 21 5 - 31 U/L [facility] Bilirubin Direct 0.2 0.0 - 0.5 mg/dL [facility] Bilirubin Total 0.6 0.0 - 1.0 mg/dL [facility] Total Protein 7.0 6.5 - 8.0 g/dL [facility] HIV AB/AG Nonreactive Nonreactive [facility] Comment: HIV-1 p24 Ag and/or [...] detection of this assay. ?? [employer] HIV Ag/Ab Combo assay result and supplemental assay results should be interpreted in conjunction with the patient's clinical presentation, history and other laboratory results. ??If the results are inconsistent with clinical evidence, additional testing is suggested to confirm the result. Anion Gap 11(L) 12 - 20 [facility] Comment: Blood Urea Nitrogen 16 9 - 16 mg/dL [facility] Calcium 9.3 8.4 - 10.2 mg/dL [facility] Carbon Dioxide 29 22 - 29 mmol/L [facility] Chloride 105 96 - 108 mmol/L [facility] Creatinine, Serum 0.68 0.5 - 1.4 mg/dL [facility] Estimated Glomerular Filt Rate >60 [facility] Comment: NOTE: ??For -Citizen Of [place] individuals, multiply the result ?by 1210. ?? Chronic Kidney Disease: ??Estimated GFR < 60 mL/min/1.73m2 Severe Kidney Disease: ??Estimated GFR < 15 mL/min/1.73m2 Glucose Random 87 60 - 115 mg/dL [facility] Potassium 4.4 3.3 - 5.1 mmol/L [facility] Sodium 141 135 - 145 mmol/L [facility] Hepatitis B Surface Antigen Negative Negative [facility] Cholesterol 161 mg/dL [facility] [...] liver disease. LDL Cholesterol Calculated 82 mg/dl [facility] Comment: Desirable LDL: ? less than 100 mg/dL Near Optimal/Above Optimal LDL: ??110-129 mg/dL Borderline High LDL: ? 130-159 mg/dL High LDL: ?160-189 mg/dL Very High LDL: ? greater than or equal to ?190 mg/dL Triglycerides 51 mg/dL [facility] Comment: Desirable Triglyceride: ? less than 150 mg/dL Borderline High Triglyceride ??150-199 mg/dL High Triglyceride: ?200-499 mg/dL Very High Triglyceride: ? greater than or equal to ? 5OO mg/dL CT PCR NOT DETECTED Not Detect. [facility] Comment: A not detected test result does [...] NG PCR NOT DETECTED Not Detect. [facility] Comment: A not detected test result does [...] psychological consequences. Hepatitis C Antibody Nonreactive Nonreactive [facility] Comment: Antibodies to HCV not detected; does not exclude early acute HCV infection. Creatinine Urine 148.77 mg/dL [facility] Microalbum/Creatin ine Ratio Ur 4.0 ug/mg cr [facility] Comment: ?Albumin/Creatinine Ratio Reference [...] liver disease. LDL Cholesterol Calculated 82 mg/dl [facility] Comment: Desirable LDL: ? less than 100 mg/dL Near Optimal/Above Optimal LDL: ??110-129 mg/dL Borderline High LDL: ? 130-159 mg/dL High LDL: ?160-189 mg/dL Very High LDL: ? greater than or equal to ?190 mg/dL Triglycerides 51 mg/dL [facility] Comment: Desirable Triglyceride: ? less than 150 mg/dL Borderline High Triglyceride ??150-199 mg/dL High Triglyceride: ?200-499 mg/dL Very High Triglyceride: ? greater than or equal to ? 5OO mg/dL Alanine Aminotransferase 15 0 - 31 U/L [facility] Albumin Level 3.8 3.5 - 5.0 g/dL [facility] Alkaline Phosphatase 76 39 - 117 U/L [facility] Aspartate Amino Transferase 21 5 - 31 U/L [facility] Bilirubin Direct 0.2 0.0 - 0.5 mg/dL [facility] Bilirubin Total 0.6 0.0 - 1.0 mg/dL [facility] Total Protein 7.0 6.5 - 8.0 g/dL [facility] Hematocrit 42.0 37 - 47 % [facility] Hemoglobin 12.8 12.0 - 16.0 g/dl [facility] Mean Corpuscular Hemoglobin 27.6 27.0 - 33.0 pg [facility] Mean Corpuscular HGB Conc 30.5(L) 31.0 - 35.0 g/dl [facility] Mean Corpuscular Volume 90.5 80 - 98 fL [facility] Mean Platelet Volume 11.0 9.4 - 12.3 fL [facility] NRBC Abs Auto 0.000 0.0 - 0.012 X10*3/uL [facility] NRBC Pct Auto 0.0 0.0 - 0.2 /100WBC [facility] Platelet Count 190 160 - 400 X10*3/uL [facility] Red Blood Count 4.64 4.20 - 5.50 X10*6/uL [facility] Red Cell Distribution Width 14.1 11.0 - 16.0 % [facility] White Blood Count 4.9 4.8 - 10.8 X10*3/uL [facility] Anion Gap 11(L) 12 - 20 [facility] Comment: Blood Urea Nitrogen 16 9 - 16 mg/dL [facility] Calcium 9.3 8.4 - 10.2 mg/dL [facility] Carbon Dioxide 29 22 - 29 mmol/L [facility] Chloride 105 96 - 108 mmol/L [facility] Creatinine, Serum 0.68 0.5 - 1.4 mg/dL [facility] Estimated Glomerular Filt Rate >60 [facility] Comment: NOTE: ??For -Citizen Of [place] individuals, multiply the result ?by 1.210. ?? [...] (Free Thyroxine) 1.11 0.71 - 1.85 ng/dL [facility] Syphilis Screen Nonreactive Nonreactive [facility] 01/19/2021 8:25 AM EDT Anushka Figueredo DO HISTORICAL/NON ORDERABLE LAB S Final Result [facility] [address] [place] [phone], * Hm Colonoscopy (11/07/2014 3:46 PM EST) us Historical Provider MD HEALTH MAINTENANCE Final Result from Last 3 Months or Most Recently Relevant to Health Maintenance Insurance [facility] Care Teams Telegraph Office Manager Relationship Specialty Start Date End Date Anushka Figueredo DO [address] [place] [address] PCP - General Family Medicine 10/03/18
--- OUTSIDE RECORDS SUMMARY | 2024-12-18 08:53 | XMS_ITS | Data Portability ---
Author Organization [employer] Address [address] [place] [id number] Care Team Providers Care Crossing Supervisor Name Role Phone HIM CCA OTHER Assessment No assessment recorded. Plan of Treatment Reminders Order Date Submit Date Provider Last Modified By Organization Details Last Modified Time Details Appointments None recorded. Lab None recorded. Referral None recorded. Procedures None recorded. Surgeries None recorded. Imaging None recorded. Medication Orders ketorolac 30 mg/mL injection solution 2023 024 [facility], [address] [place] [address], [id number], 4 20:38:17 Patient TargetsNo targets recorded. Patient InstructionsNo [...] Updated DateTime 4 99.1 [degF] 19 /min 412737. 792 g 154.94 cm 65 /min 97 [...] SNOMED-CT Code Diagnosis ICD10 Code Diagnosis Note [id number] Aung Ingram MD Main - [address] [id number] 09/14/2024 16:41:03 09/14/2024 21:58:24 Pain in right thumb [id number] M79.644 As noted, we were called to see this patient regarding concerns of pain in right thumb and headache. Evaluation in the field was performed by my porcelain enamel installer colleague, as noted above, I provided real-time direction and supervisio n for this visit. The evaluation revealed chronic headache (more than three years per porcelain enamel installer) with pain to the right thumb. Thumb [...] Mata Member ID Guarantor Name 09/14/2024 1 [facility] - DOS ON OR AFTER 2023 - DUAL ELIGIBLE - PENITENTIARY OPTIONS AND ONE CARE (MEDICARE REPLACEMENT/ADV ANTAGE - HMO) Gretel Tran Azeb [id number] Gretel Tran Azeb Notes Date Note Type [...] .................. .................. .................. .................. .................. .................. ............... Specimen Preparation Assistant Note From Rigo Stauffer: Pt chief complaint today of pain located in her right hand where her thumb meds her palm. Pt states that this pain has been going on for quite some time however she is able to state that the pain has entered a more severe sense in the last week before her [facility] appointment today. To has a history of [...] mostly located in the increase with movement. [facility] Aung Ingram consultedPt given 15 mg Im of ketorlac into the left deltoid. Pt ignored to seek a further consultation with her pcp as early as possible. Pt educated on red flag S&S and informed to call emergency services if any present. .................. .................. .................. .................. .................. .................. .................. ............... [facility] Consulted: Aung Ingram .................. .................. .................. .................. .................. .................. .................. ............... Disposition: Fulfilled Aung Ingram MD [address] [facility],[address], [place], [address], [employer] [facility] 09/14/2024 20:38:30 OBGyn Episode No OBEpisode recorded.
--- OUTSIDE RECORDS SUMMARY | 2024-12-18 08:53 | XMS_ITS | Encounter Summary ---
Author Organization [employer] Address [address] [facility] 7t [place] [address] Care Team Providers Care Specimen Processor Name Role Phone LorenaAnushka mcqueen Primary Care Provider + [phone] Encounter Details Date Type Department Care Team (Latest Contact Info) Description 12/18/2024 Travel Social History Tobacco Use Types Packs/Day [...] Description 12/25/2024 9:45 AM EDT Office Visit [facility] MEDICINE [address] [place] [address] 02/13/2025 9:00 AM EDT Office Visit [facility] OPTOMETRY [address] [place] [address] Fuad, Karon, OD 230 [place] [address] documented as of this encounter Visit Diagnoses Not on filedocumented in this encounter Additional Health Concerns Assessment Noted Time PHQ-9 Depression Total Score: 4 07/24/20 24 9:07 AM EDT documented as of this encounter Care Teams Specimen Processor Relationship Specialty Start Date End Date Anushka Figueredo DO [address] [place] [address] PCP - General Family Medicine 10/03/18 documented as of this encounter
--- OUTSIDE RECORDS SUMMARY | 2024-12-18 08:53 | XMS_ITS | Encounter Summary ---
Author Organization [employer] Address [address] [facility] 7t [place] [address] Care Team Providers Care Paper Inspector Name Role Phone Anushka Figueredo DO Primary Care Provider [phone] Reason for Visit * Reason Comments Med Refill Encounter Details Date Type Department Care Team (Late st Contact Info) Description 11/23/2024 Refill [facility] MEDICINE [address] [place] [address] Anushka Figueredo DO 230 [place] [address] Social History Tobacco Use Types Packs/Day Years [...] Description 12/25/2024 9:45 AM EDT Office Visit [facility] MEDICINE [address] [place] [address] 02/13/2025 9:00 AM EDT Office Visit [facility] OPTOMETRY [address] [place] [address] Karon Merida, OD 230 [place] [address] documented as of this encounter Visit Diagnoses Not on filedocumented in this encounter Additional Health Concerns Assessment Noted Time PHQ-9 Depression Total Score: 4 07/24/20 24 9:07 AM EDT documented as of this encounter Care Teams Paper Inspector Relationship Specialty Start Date End Date Anushka Figueredo DO 230 [place] [address] PCP - General Family Medicine 10/03/18 documented as of this encounter
--- OUTSIDE RECORDS SUMMARY | 2024-12-18 08:53 | XMS_ITS | Encounter Summary ---
Author Organization [employer] Address [address] [facility] 7t [place] [address] Care Team Providers Care Coupling Machine Operator Name Role Phone Anushka Figueredo DO Primary Care Provider [phone] Reason for Visit * Reason Comments Med Refill Encounter Details Date Type Department Care Team (Late st Contact Info) Description 11/20/2024 Refill [facility] CHC MED & PEDS [address] [place] [address] Anushka Figueredo DO 230 [facility] [place] [address] Chronic pain of both knees Social History [...] Description 12/25/2024 9:45 AM EDT Office Visit [facility] MEDICINE 230 [place] [address] 02/13/2025 9:00 AM EDT Office Visit [facility] OPTOMETRY [address] [place] [address] FuadKaron foss, OD 230 [place] [address] documented as of this encounter Visit Diagnoses Diagnosis Chronic pain of both knees documented in this encounter Additional Health Concerns Assessment Noted Time PHQ-9 Depression Total Score: 4 07/24/20 24 9:07 AM EDT documented as of this encounter Care Teams Coupling Machine Operator Relationship Specialty Start Date End Date Anushka Figueredo DO 230 [place] [address] PCP - General Family Medicine 10/03/18 documented as of this encounter
--- OUTSIDE RECORDS SUMMARY | 2024-12-18 08:53 | XMS_ITS | Encounter Summary ---
Author Organization [employer] Address [address] [place] [address] 7t [place] [address] Care Team Providers Care Support Assistant Name Role Phone Anushka Figueredo DO Primary Care Provider [phone] Reason for Visit * Reason Onset Date Comments Med Refill 09/25/2024 Encounter Details Date Type Department Care Team ([facility] st Contact Info) Description 09/25/2024 Refill [facility] MEDICINE [address] [place] [address] Anushka Figueredo DO [address] [place] [address] Chronic pain of both knees Social History [...] Description 12/25/2024 9:45 AM EDT Office Visit [facility] MEDICINE [address] [place] [address] 02/13/2025 9:00 AM EDT Office Visit [facility] OPTOMETRY [address] [place] [address] Karon Merida, OD 230 [place] [address] documented as of this encounter Visit Diagnoses Diagnosis Chronic pain of both knees documented in this encounter Additional Health Concerns Assessment Noted Time PHQ-9 Depression Total Score: 4 07/24/20 24 9:07 AM EDT documented as of this encounter Care Teams Support Assistant Relationship Specialty Start Date End Date Anushka Figueredo DO [address] [place] [address] PCP - General Family Medicine 10/03/18 documented as of this encounter
--- OUTSIDE RECORDS SUMMARY | 2024-12-18 08:53 | XMS_ITS | Encounter Summary ---
Author Organization [employer] Address [address] [place] [address] [address] [place] [address] Care Team Providers Care Support Services Tech Name Role Phone LorenaAnushka mcqueen Primary Care Provider [phone] Reason for Visit * Reason Onset Date Comments Med Refill 09/19/2024 Encounter Details Date Type Department Care Team ([facility] st Contact Info) Description 09/19/2024 Refill [facility] MEDICINE [address] [place] [address] Janine Ley MD 230 [place] [address] Social History Tobacco Use Types Packs/Day Years [...] Visit [facility] MEDICINE [address] [place] [address] 02/13/2025 9:00 AM EDT Office Visit [facility] OPTOMETRY [address] [place] [address] Karon Merida, OD [address] [place] [address] documented as of this encounter Visit Diagnoses Not on filedocumented in this encounter Additional Health Concerns Assessment Noted Time PHQ-9 Depression Total Score: 4 07/24/20 24 9:07 AM EDT documented as of this encounter Care Teams Support Services Tech Relationship Specialty Start Date End Date Anushka Figueredo DO 230 [place] [address] PCP - General Family Medicine 10/03/18 documented as of this encounter
--- OUTSIDE RECORDS SUMMARY | 2024-12-18 08:53 | XMS_ITS | Encounter Summary ---
Author Organization [employer] Address [address] [facility] 7t [place] [address] Care Team Providers Care Silver Holloware Assembler Name Role Phone Anushka Figueredo DO Primary Care Provider [phone] Reason for Visit * Reason Comments Med Refill Encounter Details Date Type Department Care Team ([facility] st Contact Info) Description 09/18/2024 Refill [facility] CHC MED & PEDS [address] [place] [address] Anushka Figueredo DO 230 [facility] [place] [address] Chronic pain of both knees Social History [...] 9:45 AM EDT Office Visit [facility] MEDICINE 230 [place] [address] 02/13/2025 9:00 AM EDT Office Visit [facility] OPTOMETRY [address] [place] [address] FuadKaron foss, OD 230 [place] [address] documented as of this encounter Visit Diagnoses Diagnosis Chronic pain of both knees documented in this encounter Additional Health Concerns Assessment Noted Time PHQ-9 Depression Total Score: 4 07/24/20 24 9:07 AM EDT documented as of this encounter Care Teams Silver Holloware Assembler Relationship Specialty Start Date End Date Anushka Figueredo DO 230 [place] [address] PCP - General Family Medicine 10/03/18 documented as of this encounter
--- OUTSIDE RECORDS SUMMARY | 2024-12-18 08:53 | XMS_ITS | Encounter Summary ---
Author Organization [employer] [facility] Address [address] [place] [address] [address] [place] [address] Care Team Providers Care Education Supervisor Name Role Phone Anushka Figueredo DO Primary Care Provider Encounter Details Date Type Department Care Team (Late st Contact Info) Description 09/10/[address] [facility] MEDICINE [address] [place] [address] Anushka Figueredo DO 230 [place] [address] Social History Tobacco Use Types Packs/Day Years [...] 12/25/2024 9:45 AM EDT Office Visit [facility] MEDICINE 230 [place] [address] 02/13/2025 9:00 AM EDT Office Visit [facility] OPTOMETRY [address] [place] [address] Fuad, Karon, OD 230 [place] [address] documented as of this encounter Visit Diagnoses Not on filedocumented in this encounter Care Teams Education Supervisor Relationship Specialty Start Date End Date Anushka Figueredo DO [address] [place] [address] PCP - General Family Medicine 10/03/18 documented as of this encounter
--- OUTSIDE RECORDS SUMMARY | 2024-12-18 08:53 | XMS_ITS | Encounter Summary ---
Author Organization [employer] Address [address] [facility] 7t [place] [address] Care Team Providers Care Dryerman/Woman Name Role Phone Anushka Figueredo DO Primary Care Provider + [phone] Reason for Visit * Reason Onset Date Comments Results 11/21/2024 Encounter Details Date Type Department Care Team ([facility] st Contact Info) Description 11/21/2024 Telephone [facility] MEDICINE [address] [place] [address] Anushka Figueredo DO 230 [place] [address] Results Social History Tobacco Use Types Packs/Day [...] 1:15 PM EST TC placed to patient [phone] in regards to below message. Patient verbalized [...] for diclofenac gel and night splints to [facility]. Thank you * Telephone Encounter - Raymundo Durant - 11/21/2024 12:01 PM EST TC from pt requesting call back regarding Results. Type of results: Nerve Test Date when done: 11/13/24 Facility: [facility] Contact pt at [phone] documented in this encounter Plan of Treatment Upcoming Encounters Date Type Department Care Team ([facility] Contact Info) Description 12/25/2024 9:45 AM EDT Office Visit [facility] MEDICINE [address] [place] [address] 02/13/2025 9:00 AM EDT Office Visit [facility] OPTOMETRY [address] [place], [place] [address] Karon Merida, OD 230 [place] [address] documented as of this encounter Visit Diagnoses Not on filedocumented in this encounter Additional Health Concerns Assessment Noted Time PHQ-9 Depression Total Score: 4 07/24/20 24 9:07 AM EDT documented as of this encounter Care Teams Dryerman/Woman Relationship Specialty Start Date End Date Anushka Figueredo DO [address] [place], [place] [id number] PCP - General Family Medicine 10/03/18 documented as of this encounter
--- OUTSIDE RECORDS SUMMARY | 2024-12-18 08:53 | XMS_ITS | Encounter Summary ---
Author Organization [employer] Address [address] [facility] 7t [place] [address] Care Team Providers Care Belt Lacer Name Role Phone Anushka Figueredo DO Primary Care Provider + [phone] Reason for Visit * Reason Comments Med Refill Encounter Details Date Type Department Care Team (Late st Contact Info) Description 08/04/2023 Refill [facility] MEDICINE 230 [place] [address] Anushka Figueredo DO 230 [place] [address] Urinary incontinence, unspecified type Social History Tobacco [...] 9:45 AM EDT Office Visit [facility] MEDICINE [address] [place] [address] 02/13/2025 9:00 AM EDT Office Visit [facility] OPTOMETRY [address] [place] [address] Fuad, Karon, OD [address] [place] [address] documented as of this encounter Visit Diagnoses Diagnosis Urinary incontinence, unspecified type documented in this encounter Additional Health Concerns Assessment Noted Time PHQ-9 Depression Total Score: 0 12/10/19 23 10:17 AM EST documented as of this encounter Care Teams Belt Lacer Relationship Specialty Start Date End Date Anushka Figueredo DO [address] [place] [address] PCP - General Family Medicine 10/03/18 documented as of this encounter
--- OUTSIDE RECORDS SUMMARY | 2024-12-18 08:53 | XMS_ITS | Encounter Summary ---
Author Organization [employer] Address [address] [facility] 7t [place] [address] Care Team Providers Care Bead Flipper Name Role Phone RoxannaAnushka lara Primary Care Provider + [phone] Reason for Visit * Reason Comments Med Refill Encounter Details Date Type Department Care Team (Late st Contact Info) Description 03/19/2024 Refill [facility] MEDICINE [address] [place] [address] Janine Pulido MD [address] [place] [address] Chronic right shoulder pain Social History Tobacco [...] Description 12/25/2024 9:45 AM EDT Office Visit [facility] MEDICINE [address] [place] [address] 02/13/2025 9:00 AM EDT Office Visit [facility] OPTOMETRY [address] [place] [address] Fuad, Karon, OD [address] [place] [address] documented as of this encounter Visit Diagnoses Diagnosis Chronic right shoulder pain Pain in joint, shoulder region documented in this encounter Additional Health Concerns Assessment Noted Time PHQ-9 Depression Total Score: 0 12/10/19 23 10:17 AM EST documented as of this encounter Care Teams Bead Flipper Relationship Specialty Start Date End Date Anushka Figueredo DO [address] [place] [address] PCP - General Family Medicine 10/03/18 documented as of this encounter
--- OUTSIDE RECORDS SUMMARY | 2024-12-18 08:53 | XMS_ITS | Encounter Summary ---
Author Organization [employer] Address [address] [place] [address] 7t [place] [address] Care Team Providers Care Chief Lending Officer Name Role Phone LorenaAnushka mcqueen Primary Care Provider + [phone] Reason for Visit * Reason Onset Date Comments Med Refill 12/14/2024 Encounter Details Date Type Department Care Team ([facility] st Contact Info) Description 12/14/2024 Refill [facility] MEDICINE [address] [place] [address] Name, MD Migue [address] [place] [address] Social History Tobacco Use Types Packs/Day Years [...] your housing situation today? I have moe sing 02/10/[address] you li [...] Description 12/25/2024 9:45 AM EDT Office Visit [facility] MEDICINE [address] [place] [address] 02/13/2025 9:00 AM EDT Office Visit [facility] OPTOMETRY [address] [place] [address] Karon Merida, OD 230 [place] [address] documented as of this encounter Visit Diagnoses Not on filedocumented in this encounter Additional Health Concerns Assessment Noted Time PHQ-9 Depression Total Score: 4 07/24/20 24 9:07 AM EDT documented as of this encounter Care Teams Chief Lending Officer Relationship Specialty Start Date End Date Anushka Figueredo DO [address] [place] [address] PCP - General Family Medicine 10/03/18 documented as of this encounter
--- OUTSIDE RECORDS SUMMARY | 2024-12-18 08:53 | XMS_ITS | Encounter Summary ---
Author Organization [employer] Address [address] [facility] 7t [place] [address] Care Team Providers Care Front Desk Clerk Name Role Phone RoxannaAnushka lara Primary Care Provider + [phone] Encounter Details Date Type Department Care Team (Late st Contact Info) Description 11/30/2024 Orders Only [facility] MEDICINE [address] [place] [address] Colleen Paulson MD 230 [place] [address] Social History Tobacco Use Types Packs/Day Years [...] Description 12/25/2024 9:45 AM EDT Office Visit [facility] MEDICINE [address] [place] [address] 02/13/2025 9:00 AM EDT Office Visit [facility] OPTOMETRY [address] [place] [address] Fuad, Karon, OD 230 [place] [address] documented as of this encounter Visit Diagnoses Not on filedocumented in this encounter Additional Health Concerns Assessment Noted Time PHQ-9 Depression Total Score: 4 07/24/20 24 9:07 AM EDT documented as of this encounter Care Teams Front Desk Clerk Relationship Specialty Start Date End Date Anushka Figueredo DO [address] [place] [address] PCP - General Family Medicine 10/03/18 documented as of this encounter
--- OUTSIDE RECORDS SUMMARY | 2024-12-18 08:54 | XMS_ITS | Clinical Summary ---
Author Organization [facility] Address [address] [place] [address] Care Team Providers Care Business Resiliency Manager Name Role Phone Crista Gaines Unavailable [phone] Anushka Figueredo Primary Care Provider [phone] Allergies No known active allergies Medications acetaminophen [...] tablet by mouth daily. Active Preser[employer]ision AREDS-2 126-210-97-1 cf-nksd-tj-mg capsule TAKE 1 CAPSULE BY MOUTH TWICE [...] (09/21/2021 2:31 PM EST): Patient presented to [facility] on 09/16 with headache, double vision, right side ptosis following a knee replacement surgery on September 09. 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 Transferred to [facility] on 09/19 after not improving with [...] (09/20/2021 4:28 PM EST): Patient presented to [facility] on 09/16 with headache, double vision, right side ptosis following a knee replacement surgery on September 09. 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 Transferred to [facility] on 09/19 after not improving with [...] (09/18/2021 9:18 PM EST): Patient presented to [facility] on 09/16 with chief complaint of headache, [...] currently well controlled. During the admission at [facility] patient required hydralazine for hypertensive urgency. Plan Continue amlodipine 10 mg daily and lisinopril 30 mg daily Continue telemetry monitoring History of right knee joint replacement 09/18/20 Assessment & Plan (09/21/2021 8:51 AM EST): Right knee arthroplasty at [facility] on September 09. Discharged home on [...] 4:27 PM EST): Right knee arthroplasty at [facility] on September 09. Discharged home on [...] had regularly replacement on September 09 at [facility]. Per orthopedics recommendation she needs to be [...] this topic Medical Devices Implanted Type Area Performance Engineer Device Identifier Shelf Expiration Date Model / Serial / Lot 6fr O.D. Option Vena Cava Filter, Femoral/Jugular Color Coded. Replaces [id number] Implanted:Qty: 1 on 09/21/2021 at [facility] Filter [employer] 03/03/2024 [id number] / / [id number] Insurance MEDICARE MANAGED - MISCELLANEOUS Advance Directives For more information, please contact: [phone] * Full Code (Latest Code Status on File) Date Activated Date Inactivated Comments 09/18/2021 7:04 PM 09/22/2021 7:46 PM Care Teams Business Resiliency Manager Relationship Specialty Start Date End Date Anushka Figueredo [address] [place] [phone] PCP - General 10/30/21 Crista Gaines MBBS [address] [place] [address] [place] [address] Consulting Physician Endocrinology 10/09/21
--- OUTSIDE RECORDS SUMMARY | 2024-12-18 08:54 | XMS_ITS | Encounter Summary ---
Author Organization [employer] Address [address] [facility] 7t [place] [address] Care Team Providers Care Thermometer Maker Name Role Phone Anushka Figueredo DO Primary Care Provider [phone] Reason for Visit * Reason Comments Med Refill Encounter Details Date Type Department Care Team (Late st Contact Info) Description 12/07/2022 Refill [facility] CHC MED & PEDS [address] [place] [address] Anushka Figueredo DO 230 [facility] [place] [address] Chronic pain of both knees Social History [...] Description 12/25/2024 9:45 AM EDT Office Visit [facility] MEDICINE [address] [place] [address] 02/13/2025 9:00 AM EDT Office Visit [facility] OPTOMETRY [address] [place] [address] Fuad, Karon, OD 230 [place] [address] documented as of this encounter Visit Diagnoses Diagnosis Chronic pain of both knees documented in this encounter Additional Health Concerns Assessment Noted Time PHQ-9 Depression Total Score: 0 12/02/19 23 9:55 AM EST documented as of this encounter Care Teams Thermometer Maker Relationship Specialty Start Date End Date Anushka Figueredo DO 230 [place] [address] PCP - General Family Medicine 10/03/18 documented as of this encounter
--- OUTSIDE RECORDS SUMMARY | 2024-12-18 08:54 | XMS_ITS | Encounter Summary ---
Author Organization [facility] Address [address] [place] [address] Care Team Providers Care Elementary School Teacher Name Role Phone Pcp, Sara MD Primary Care Provider Crista Hernandez Unavailable [phone] Anushka Figueredo Primary Care Provider [phone] Encounter Details Date Type Department Care Team (Late st Contact Info) Description 10/29/2021 Orders Only [facility] Department of Neurosurgery [address] [place] [address] Ratna Gill PA-C [address] [facility] [address] Social History Tobacco Use Types Packs/Day Years [...] on filedocumented in this encounter Care Teams Elementary School Teacher Relationship Specialty Start Date End Date PcpSara MD [address] [place] [address] PCP - General Internal Medicine 09/18/21 10/29/21 Anushka Figueredo [address] [place] [phone] PCP - General 10/30/21 Crista Gaines MBBS [address] [place] [address] [facility] [place] [address] Consulting Physician Endocrinology 10/09/21 documented as of this encounter
--- OUTSIDE RECORDS SUMMARY | 2024-12-18 08:54 | XMS_ITS | Encounter Summary ---
Author Organization [facility] Address [address] [place] [address] Care Team Providers Care Senior Naval Parachutist Name Role Phone Crista Gaines Unavailable [phone] Anushka Figueredo Primary Care Provider [phone] Encounter Details Date Type Department Care Team (Late st Contact Info) Description 02/15/2022 Orders Only [facility] Department of Neurosurgery [address] [place] [address] Ej Badillo PA-C Pituitary tumor (Primary Dx) [...] system documented in this encounter Care Teams Senior Naval Parachutist Relationship Specialty Start Date End Date Anushka Figueredo [address] [place] [phone] PCP - General 10/30/21 Crista Gaines MBBS [address] [place] [address] [place] [address] Consulting Physician Endocrinology 10/09/21 documented as of this encounter
--- OUTSIDE RECORDS SUMMARY | 2024-12-18 08:54 | XMS_ITS | Encounter Summary ---
Author Organization [employer] Address [address] [place] [address] 7t [place] [address] Care Team Providers Care Director New Product Name Role Phone Anushka Figueredo DO Primary Care Provider [phone] Reason for Visit * Reason Onset Date Comments Durable Medical Equipment 10/24/2024 Encounter Details Date Type Department Care Team ([facility] st Contact Info) Description 10/24/2024 Telephone [facility] MEDICINE [address] [place] [address] Anushka Figueredo DO [address] [place] [address] Durable Medical Equipment Social History Tobacco Use [...] Nebulizer. IF any questions contact pt at [phone] documented in this encounter Plan of Treatment Upcoming Encounters Date Type Department Care Team ([facility] st Contact Info) Description 12/25/2024 9:45 AM EDT Office Visit [facility] MEDICINE [address] [place] [address] 02/13/2025 9:00 AM EDT Office Visit [facility] OPTOMETRY [address] [place] [address] Fuad, Karon, OD [address] [place] [address] documented as of this encounter Visit Diagnoses Not on filedocumented in this encounter Additional Health Concerns Assessment Noted Time PHQ-9 Depression Total Score: 4 07/24/20 24 9:07 AM EDT documented as of this encounter Care Teams Director New Product Relationship Specialty Start Date End Date Anushka Figueredo DO [address] [place] [address] PCP - General Family Medicine 10/03/18 documented as of this encounter
--- OUTSIDE RECORDS SUMMARY | 2024-12-18 08:54 | XMS_ITS | Encounter Summary ---
Author Organization [email or web address] Address [address] [place] [address] 7[address] [place] [address] Care Team Providers Care Community Advocate Name Role Phone Anushka Figueredo DO Primary Care Provider [phone] Reason for Visit * Reason Onset Date Comments Appointment Request 04/11/2023 Encounter Details Date Type Department Care Team ([facility] st Contact Info) Description 04/11/2023 Telephone [facility] MEDICINE [address] [place] [address] Anushka Figueredo DO [address] [place] [address] Appointment Request Social History Tobacco Use Types [...] OV with provider. Please contact pt at [phone] documented in this encounter Plan of Treatment Upcoming Encounters Date Type Department Care Team (Late st Contact Info) Description 12/25/2024 9:45 AM EDT Office Visit [facility] MEDICINE [address] [place] [address] 02/13/2025 9:00 AM EDT Office Visit [facility] OPTOMETRY [address] [place] [address] Fuad, Karon, OD [address] [place] [address] documented as of this encounter Visit Diagnoses Not on filedocumented in this encounter Additional Health Concerns Assessment Noted Time PHQ-9 Depression Total Score: 0 12/10/19 23 10:17 AM EST documented as of this encounter Care Teams Community Advocate Relationship Specialty Start Date End Date Anushka Figueredo DO [address] [place] [address] PCP - General Family Medicine 10/03/18 documented as of this encounter
--- OUTSIDE RECORDS SUMMARY | 2024-12-18 08:54 | XMS_ITS | Encounter Summary ---
Author Organization [facility] Address [address] [place] [address] Care Team Providers Care Sewer Contractor Name Role Phone Crista Gaines Unavailable [phone] Anushka Figueredo Primary Care Provider [phone] Reason for Referral * MRI/CAT/PET Scan (Routine) - Closed Specialty Diagnoses / Procedures Referred By Kamilah marcial Referred To Contact Diagnoses Benign neoplasm of pituitary gland (HCC) Procedures MRI brain W WO contrast Ej Badillo PA-C Other Referral ID Status Reason Start Date Expiration Date Visits Requested Visits Authorized [id number] Closed Patient Preference 03/03/2022 07/03/2022 1 1 Encounter Details Date Type Department Care Team (Late st Contact Info) Description 12/07/2021 Orders Only [facility] Department of Neurosurgery [address] [place] [address] Ej Badillo PA-C Benign neoplasm of pituitary [...] (pouch) documented in this encounter Care Teams Sewer Contractor Relationship Specialty Start Date End Date Anushka Figueredo [address] [place] [phone] PCP - General 10/30/21 Crista Gaines MBBS [address] [place] [address] [place] [address] Consulting Physician Endocrinology 10/09/21 documented as of this encounter
--- OUTSIDE RECORDS SUMMARY | 2024-12-18 08:54 | XMS_ITS | Encounter Summary ---
Author Organization [employer] Address [address] [facility] 7t [place] [address] Care Team Providers Care Spiral Tube Winder Name Role Phone Anushka Figueredo DO Primary Care Provider [phone] Encounter Details Date Type Department Care Team ([facility] st Contact Info) Description 10/31/2024 Telephone [facility] MEDICINE [address] [place] [address] Anushka Figueredo DO [address] [place] [address] Social History Tobacco Use Types Packs/Day Years [...] EDT Office Visit [facility] MEDICINE [address] [place] [address] 02/13/2025 9:00 AM EDT Office Visit [facility] OPTOMETRY [address] [place] [address] Karon Merida, OD [address] [place] [address] documented as of this encounter Visit Diagnoses Not on filedocumented in this encounter Additional Health Concerns Assessment Noted Time PHQ-9 Depression Total Score: 4 07/24/20 24 9:07 AM EDT documented as of this encounter Care Teams Spiral Tube Winder Relationship Specialty Start Date End Date Anushka Figueredo DO [address] [place] [address] PCP - General Family Medicine 10/03/18 documented as of this encounter
== END 2024-12-18 09:34 | disposition home or self-care (01) ==
LOC: HO.ENCR 08:37
PROVIDERS: PCP Family Medicine; Visit Provider Student in an Organized Health Care Education/Training Program
DX: D35.2 Benign neoplasm of pituitary gland (principal)
CPT/HCPCS: 99214

== ENCOUNTER → 2024-12-18 08:36 | Outpatient (BNVA) | payer OTHER, SELFPAY | PROVIDERS: PCP Family Medicine; Visit Provider Student in an Organized Health Care Education/Training Program | DX: D35.2 Benign neoplasm of pituitary gland (principal) | CPT/HCPCS: 99212 ==

== ENCOUNTER → 2024-12-25 07:36 | Outpatient (REF) | payer OTHER, SELFPAY | LOC: HO.SL 07:36 | PROVIDERS: PCP Family Medicine; Visit Provider Family Medicine | DX: G47.30 Sleep apnea, unspecified (principal); R06.83 Snoring | CPT/HCPCS: 95806 ==

== ENCOUNTER → 2025-01-02 08:17 | Outpatient (BNV) | payer OTHER, SELFPAY | PROVIDERS: PCP Family Medicine; Visit Provider Radiology Diagnostic Radiology | DX: E23.7 Disorder of pituitary gland, unspecified (principal) | CPT/HCPCS: 70553 ==

== ENCOUNTER 2025-01-02 08:26 | Outpatient (REF) | payer OTHER, SELFPAY ==
--- NOTE | ~2025-01-02 | MR_ITS ---
EXAMINATION: MR BRAIN PITUITARY PROTOCOL WITHOUT AND WITH CONTRAST CLINICAL INFORMATION: Disorders of the pituitary gland COMPARISON: August 05, 2022 TECHNIQUE: Multiplanar, multisequence MRI of the brain/ pituitary protocol was obtained before and after the intravenous administration of 5 mL Gadavist without reported immediate complications. FINDINGS: Transsphenoidal approach treatment changes. There is a 15 x 20 x 13 mm enhancing the lesion within the sella torsi,. There is a 2 mm deviation to the left of the pituitary stalk. The pituitary stalk measures 15 mm in maximal thickness. The optic chiasm is intact and normal. The flow-void signal within the cavernous and supraclinoid segments of the ICA is normal The Tiffanie scabies demonstrated no signal abnormality or enhancing lesion. The intracanalicular segments of the optic nerves demonstrated no signal abnormality or enhancing lesion. The inferior orbital fissure and the foramen rotundum demonstrated no signal abnormality or enhancing lesion. No enhancing mass at the cavernous sinuses. No gross restricted diffusion within the intrasellar lesion. No restricted diffusion within the brain parenchyma. Escobar-white matter differentiation is normal. No acute intracranial hemorrhage, mass effect midline shift hydrocephalus or herniation. The craniocervical junction is intact and normal. 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 Electronically signed by: Brandon Kan MD 01/02/2025 10:34 AM EDT
--- OUTSIDE RECORDS SUMMARY | 2025-01-02 08:46 | XMS_ITS | Encounter Summary ---
Author Organization [employer] Address [address] [place] [address] 7t [place] [address] Care Team Providers Care Telecommunicator Name Role Phone Anushka Figueredo DO Primary Care Provider [phone] Reason for Visit * Reason Onset Date Comments Nurse Triage 08/14/2024 Encounter Details Date Type Department Care Team ([facility] st Contact Info) Description 08/14/2024 Telephone [facility] MEDICINE [address] [place] [address] Anushka Figueredo DO [address] [place] [address] Nurse Triage Social History Tobacco Use Types [...] Care Team (Late st Contact Info) Description 02/13/2025 9:00 AM EDT Office Visit [facility] OPTOMETRY [address] [place] [address] FuadKraon foss, OD [address] [place], [place] [phone] documented as of this encounter Visit Diagnoses Not on filedocumented in this encounter Additional Health Concerns Assessment Noted Time PHQ-9 Depression Total Score: 4 07/24/20 24 9:07 AM EDT documented as of this encounter Care Teams Telecommunicator Relationship Specialty Start Date End Date Anushka Figueredo DO [address] [place] [address] PCP - General Family Medicine 10/03/18 documented as of this encounter
--- OUTSIDE RECORDS SUMMARY | 2025-01-02 08:46 | XMS_ITS | Encounter Summary ---
Author Organization [employer] Address [address] [facility] 7t [place] [address] Care Team Providers Care Custom Dressmaker Name Role Phone LorenaAnushka mcqueen Primary Care Provider [phone] Reason for Visit * Reason Comments Med Refill Encounter Details Date Type Department Care Team (Late st Contact Info) Description 08/03/2023 Refill [facility] MEDICINE [address] [place] [address] Janine Pulido MD [address] [place] [address] Dry eyes Social History Tobacco Use Types [...] Description 02/13/2025 9:00 AM EDT Office Visit [facility] OPTOMETRY [address] [place] [address] Fuad, Karon, OD 230 [place], [place] [phone] documented as of this encounter Visit Diagnoses Diagnosis Dry eyes Unspecified tear film insufficiency documented in this encounter Additional Health Concerns Assessment Noted Time PHQ-9 Depression Total Score: 0 12/10/19 23 10:17 AM EST documented as of this encounter Care Teams Custom Dressmaker Relationship Specialty Start Date End Date Anushka Figueredo DO [address] [place], [place] [phone] PCP - General Family Medicine 10/03/18 documented as of this encounter
--- OUTSIDE RECORDS SUMMARY | 2025-01-02 08:47 | XMS_ITS | Data Portability ---
Author Organization [employer] Address [address] [place] [phone] Care Team Providers Care Deputy City Clerk Name Role Phone HIM CCA OTHER Assessment No assessment recorded. Plan of Treatment Reminders Order Date Submit Date Provider Last Modified By Organization Details Last Modified Time Details Appointments None recorded. Lab None recorded. Referral None recorded. Procedures None recorded. Surgeries None recorded. Imaging None recorded. Medication Orders ketorolac 30 mg/mL injection solution 2023 024 [facility], [address] [place] [address], [id number], 20:38:17 Patient TargetsNo targets recorded. Patient InstructionsNo [...] Updated DateTime 4 99.1 [degF] 19 /min 717796. 792 g 154.94 cm 65 /min 97 [...] SNOMED-CT Code Diagnosis ICD10 Code Diagnosis Note [id number] Aung Ingram MD Main - [address] [phone] 09/14/2024 16:41:03 09/14/2024 21:58:24 Pain in right thumb [id number] M79.644 As noted, we were called to see this patient regarding concerns of pain in right thumb and headache. Evaluation in the field was performed by my vp biology colleague, as noted above, I provided real-time direction and supervisio n for this visit. The evaluation revealed chronic headache (more than three years per vp biology) with pain to the right thumb. Thumb [...] Mata Member ID Guarantor Name 09/14/2024 1 [facility] - DOS ON OR AFTER 2023 - DUAL ELIGIBLE - LONGTERM OPTIONS AND ONE CARE (MEDICARE REPLACEMENT/ADV ANTAGE - HMO) Gretel Tran Azeb [id number] Gretel Tran Azeb Notes Date Note Type [...] .................. .................. .................. .................. .................. .................. ............... Inspector Crystal Note From Rigo Stauffer: Pt chief complaint today of pain located in her right hand where her thumb meds her palm. Pt states that this pain has been going on for quite some time however she is able to state that the pain has entered a more severe sense in the last week before her [facility] appointment today. To has a history [...] mostly located in the increase with movement. [facility] [place] Aung Ingram consultedPt given 15 mg Im of ketorlac into the left deltoid. Pt ignored to seek a further consultation with her pcp as early as possible. Pt educated on red flag S&S and informed to call emergency services if any present. .................. .................. .................. .................. .................. .................. .................. ............... [facility] [place] [place] Consulted: Aung Ingram .................. .................. .................. .................. .................. .................. .................. ............... Disposition: Fulfilled Aung Ingram MD [address] [facility],[address], [place], [address], [employer] [facility] 09/14/2024 20:38:30 OBGyn Episode No OBEpisode recorded.
--- OUTSIDE RECORDS SUMMARY | 2025-01-02 08:47 | XMS_ITS | Encounter Summary ---
Author Organization [employer] Address [address] [facility] 7t [place] [address] Care Team Providers Care Program Director Cable Television Name Role Phone RoxannaAnushka lara Primary Care Provider [phone] Reason for Visit * Reason Comments Med Refill Encounter Details Date Type Department Care Team (Late st Contact Info) Description 03/19/2024 Refill [facility] MEDICINE [address] [place] [address] Janine Pulido MD 230 [place] [address] Chronic right shoulder pain Social History Tobacco [...] Description 02/13/2025 9:00 AM EDT Office Visit [facility] OPTOMETRY [address] [place] [address] Fuad, Karon, OD 230 [place], [place] [phone] documented as of this encounter Visit Diagnoses Diagnosis Chronic right shoulder pain Pain in joint, shoulder region documented in this encounter Additional Health Concerns Assessment Noted Time PHQ-9 Depression Total Score: 0 12/10/19 23 10:17 AM EST documented as of this encounter Care Teams Program Director Cable Television Relationship Specialty Start Date End Date Anushka Figueredo DO [address] [place] [address] PCP - General Family Medicine 10/03/18 documented as of this encounter
--- OUTSIDE RECORDS SUMMARY | 2025-01-02 08:47 | XMS_ITS | Encounter Summary ---
Author Organization [facility] Address [address] [place] [address] Care Team Providers Care Petroleum Plant Operator Name Role Phone Crista Gaines Unavailable [phone] Anushka Figueredo Primary Care Provider [phone] Encounter Details Date Type Department Care Team (Late st Contact Info) Description 02/15/2022 Orders Only [facility] Department of Neurosurgery [address] [place] [address] Ej Badillo PA-C Pituitary tumor (Primary Dx) [...] system documented in this encounter Care Teams Petroleum Plant Operator Relationship Specialty Start Date End Date Anushka Figueredo [address] [place] [phone] PCP - General 10/30/21 Crista Gaines MBBS [address] [place] [address] [place] [address] Consulting Physician Endocrinology 10/09/21 documented as of this encounter
--- OUTSIDE RECORDS SUMMARY | 2025-01-02 08:47 | XMS_ITS | Encounter Summary ---
Author Organization [employer] Address [address] [facility] 7t [place] [address] Care Team Providers Care Supervisor Partial Denture Department Name Role Phone Anushka Figueredo DO Primary Care Provider [phone] Reason for Visit * Reason Onset Date Comments Results 11/21/2024 Encounter Details Date Type Department Care Team ([facility] st Contact Info) Description 11/21/2024 Telephone [facility] MEDICINE [address] [place] [address] Anushka Figueredo DO [address] [place] [address] Results Social History Tobacco Use Types Packs/Day [...] 1:15 PM EST TC placed to patient [phone] in regards to below message. Patient verbalized [...] for diclofenac gel and night splints to [facility]. Thank you * Telephone Encounter - Raymundo Durant - 11/21/2024 12:01 PM EST TC from pt requesting call back regarding Results. Type of results: Nerve Test Date when done: 11/13/24 Facility: [facility] [place] Contact pt at [phone] documented in this encounter Plan of Treatment Upcoming Encounters Date Type Department Care Team (Late st Contact Info) Description 02/13/2025 9:00 AM EDT Office Visit [facility] OPTOMETRY [address] [place], [place] [phone] Fuad, Karon, OD 230 [place], [place] [phone] documented as of this encounter Visit Diagnoses Not on filedocumented in this encounter Additional Health Concerns Assessment Noted Time PHQ-9 Depression Total Score: 4 07/24/20 24 9:07 AM EDT documented as of this encounter Care Teams Supervisor Partial Denture Department Relationship Specialty Start Date End Date Anushka Figueredo DO [address] [place] [address] PCP - General Family Medicine 10/03/18 documented as of this encounter
--- OUTSIDE RECORDS SUMMARY | 2025-01-02 08:47 | XMS_ITS | Encounter Summary ---
Author Organization [employer] Address [address] [facility] 7t [place] [address] Care Team Providers Care Tuber Helper Name Role Phone RoxannaAnushka lara Primary Care Provider + [phone] Encounter Details Date Type Department Care Team (Late st Contact Info) Description 11/30/2024 Orders Only [facility] MEDICINE [address] [place] [address] Colleen Paulson MD [address] [place] [address] Social History Tobacco Use Types Packs/Day Years [...] Description 02/13/2025 9:00 AM EDT Office Visit [facility] OPTOMETRY [address] [place] [address] Karon Merida, OD [address] [place] [address] documented as of this encounter Visit Diagnoses Not on filedocumented in this encounter Additional Health Concerns Assessment Noted Time PHQ-9 Depression Total Score: 4 07/24/20 24 9:07 AM EDT documented as of this encounter Care Teams Tuber Helper Relationship Specialty Start Date End Date Anushka Figueredo DO [address] [place] [address] PCP - General Family Medicine 10/03/18 documented as of this encounter
--- OUTSIDE RECORDS SUMMARY | 2025-01-02 08:47 | XMS_ITS | Encounter Summary ---
Author Organization [employer] Address [address] [place] [address] 7t [place] [address] Care Team Providers Care Frit Mixer Name Role Phone Anushka Figueredo DO Primary Care Provider [phone] Reason for Visit * Reason Onset Date Comments Appointment Request 04/11/2023 Encounter Details Date Type Department Care Team ([facility] st Contact Info) Description 04/11/2023 Telephone [facility] MEDICINE [address] [place] [address] Anushka Figueredo DO [address] [place] [address] Appointment Request Social History Tobacco Use Types [...] OV with provider. Please contact pt at [phone] documented in this encounter Plan of Treatment Upcoming Encounters Date Type Department Care Team (Late st Contact Info) Description 02/13/2025 9:00 AM EDT Office Visit [facility] OPTOMETRY [address] [place], [place] [phone] Karon Merida, OD [address] [place] [address] documented as of this encounter Visit Diagnoses Not on filedocumented in this encounter Additional Health Concerns Assessment Noted Time PHQ-9 Depression Total Score: 0 12/10/19 23 10:17 AM EST documented as of this encounter Care Teams Frit Mixer Relationship Specialty Start Date End Date Anushka Figueredo DO [address] [place] [address] PCP - General Family Medicine 10/03/18 documented as of this encounter
--- OUTSIDE RECORDS SUMMARY | 2025-01-02 08:47 | XMS_ITS | Clinical Summary ---
Author Organization [facility] Address [address] [place] [address] Care Team Providers Care Preform Machine Operator Name Role Phone Crista Gaines Unavailable [phone] Anushka Figueredo Primary Care Provider [phone] Allergies No known active allergies Medications acetaminophen [...] tablet by mouth daily. Active PreserVision AREDS-2 [id number] uz-koxc-vx-mg capsule TAKE 1 CAPSULE BY MOUTH TWICE [...] (09/21/2021 2:31 PM EST): Patient presented to [facility] on 09/16 with headache, double vision, right side ptosis following a knee replacement surgery on September 09. 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 Transferred to [facility] on 09/19 after not improving with [...] (09/20/2021 4:28 PM EST): Patient presented to [facility] on 09/16 with headache, double vision, right side ptosis following a knee replacement surgery on September 09. 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 Transferred to [facility] on 09/19 after not improving with [...] (09/18/2021 9:18 PM EST): Patient presented to [facility] on 09/16 with chief complaint of [...] currently well controlled. During the admission at [facility] patient required hydralazine for hypertensive urgency. Plan Continue amlodipine 10 mg daily and lisinopril 30 mg daily Continue telemetry monitoring History of right knee joint replacement 09/18/20 Assessment & Plan (09/21/2021 8:51 AM EST): Right knee arthroplasty at [facility] on September 09. Discharged home on [...] 4:27 PM EST): Right knee arthroplasty at [facility] on September 09. Discharged home on [...] had regularly replacement on September 09 at [facility]. Per orthopedics recommendation she needs to [...] Screening 1960 Medicare Annual Wellness (AWV) 1960 DTaP,Tdap,and Td Vaccines (1 - Tdap) 1976 Hepatitis C Screening 1976 Pneumococcal Vaccine, 50+ Years (1 of 2 - PCV) 1977 Zoster Vaccines (1 of 2) 2008 Breast Cancer Screening 03/18/2024 03/18/2022, 03/11 COVID-19 Vaccine ( season) 2024 09/21/2022, 11/30/2021, 02/21/2021, Additional history exists Influenza Vaccine (Season Ended) 2025 HPV Vaccines Aged Out No longer eligi [...] this topic Medical Devices Implanted Type Area Logistics Officer Device Identifier Shelf Expiration Date Model / Serial / Lot 6fr O.D. Option Vena Cava Filter, Femoral/Jugular Color Coded. Replaces [id number] - [id number] Implanted:Qty: 1 on 09/21/2021 at [facility] [employer] 03/03/2024 [id number] / / [id number] Insurance MEDICARE MANAGED - MISCELLANEOUS Advance Directives For more information, please contact: [phone] * Full Code (Latest Code Status on File) Date Activated Date Inactivated Comments 09/18/2021 7:04 PM 09/22/2021 7:46 PM Care Teams Preform Machine Operator Relationship Specialty Start Date End Date Anushka Figueredo [address] [place] [phone] PCP - General 10/30/21 Crista Gaines MBBS [address] [place] [address] [place] [address] Consulting Physician Endocrinology 10/09/21
--- OUTSIDE RECORDS SUMMARY | 2025-01-02 08:47 | XMS_ITS | Encounter Summary ---
Author Organization [facility] Address [address] [place] [address] Care Team Providers Care Bench Inspector Name Role Phone Crista Gaines Unavailable [phone] Anushka Figueredo Primary Care Provider [phone] Reason for Referral * MRI/CAT/PET Scan (Routine) - Closed Specialty Diagnoses / Procedures Referred By Kamilah marcial Referred To Contact Diagnoses Benign neoplasm of pituitary gland (HCC) Procedures MRI brain W WO contrast Ej Badillo PA-C Other Referral ID Status Reason Start Date Expiration Date Visits Requested Visits Authorized [id number] Closed Patient Preference 03/03/2022 07/03/2022 1 1 Encounter Details Date Type Department Care Team (Late st Contact Info) Description 12/07/2021 Orders Only [facility] Department of Neurosurgery [address] [place] [address] Ej Badillo PA-C Benign neoplasm of pituitary [...] (pouch) documented in this encounter Care Teams Bench Inspector Relationship Specialty Start Date End Date Anushka Figueredo [address] [place] [phone] PCP - General 10/30/21 Crista Gaines MBBS [address] [place] [address] [place] [address] Consulting Physician Endocrinology 10/09/21 documented as of this encounter
--- OUTSIDE RECORDS SUMMARY | 2025-01-02 08:47 | XMS_ITS | Encounter Summary ---
Author Organization [employer] Address [address] [facility] 7t [place] [address] Care Team Providers Care Head Rigger Name Role Phone Anushka Figueredo DO Primary Care Provider [phone] Reason for Visit * Reason Comments Med Refill Encounter Details Date Type Department Care Team (Late st Contact Info) Description 12/07/2022 Refill [facility] MED & PEDS [address] [place] [address] Anushka Figueredo DO [address] [facility] [place] [address] Chronic pain of both knees Social History [...] Description 02/13/2025 9:00 AM EDT Office Visit [facility] OPTOMETRY [address] [place], [place] [phone] FuadKaron foss, OD [address] [place] [address] documented as of this encounter Visit Diagnoses Diagnosis Chronic pain of both knees documented in this encounter Additional Health Concerns Assessment Noted Time PHQ-9 Depression Total Score: 0 12/02/19 23 9:55 AM EST documented as of this encounter Care Teams Head Rigger Relationship Specialty Start Date End Date Anushka Figueredo DO [address] [place] [address] PCP - General Family Medicine 10/03/18 documented as of this encounter
--- OUTSIDE RECORDS SUMMARY | 2025-01-02 08:47 | XMS_ITS | Encounter Summary ---
Author Organization [employer] Address [address] [facility] [address] [place] [address] Care Team Providers Care Office Lead Name Role Phone Roxannajane Anushka Primary Care Provider [phone] Encounter Details Date Type Department Care Team ([facility] st Contact Info) Description 01/12/2024 Orders Only [facility] MEDICINE [address] [place] [address] ProviderSandra MD Social History Tobacco Use Types [...] Description 02/13/2025 9:00 AM EDT Office Visit [facility] OPTOMETRY [address] [place] [address] Fuad, Karon, OD [address] [place], [place] [phone] documented as of this encounter Procedures Procedure Name Priority Date/Time Associated Diagnosis Comments HM COLONOSCOPY Routine 11/07/2014 3:46 PM EST documented in this encounter Results * Hm Colonoscopy (11/07/2014 3:46 PM EST) Historical Provider HEALTH MAINTENANCE Final Result documented in this encounter Visit Diagnoses Not on filedocumented in this encounter Additional Health Concerns Assessment Noted Time PHQ-9 Depression Total Score: 0 12/10/19 23 10:17 AM EST documented as of this encounter Care Teams Office Lead Relationship Specialty Start Date End Date Anushka Figueredo DO [address] [place] [address] PCP - General Family Medicine 10/03/18 documented as of this encounter
--- OUTSIDE RECORDS SUMMARY | 2025-01-02 08:47 | XMS_ITS | Encounter Summary ---
Author Organization [employer] [facility] Address [address] [place] [address] [address] Care Team Providers Care Vanstone Machine Operator Name Role Phone Anushka Figueredo DO Primary Care Provider [phone] Encounter Details Date Type Department Care Team (Late st Contact Info) Description 09/10/2022 Telephone [facility] MEDICINE [address] [place] [address] Anushka Figueredo DO [address] [place] [address] Social History Tobacco Use Types Packs/Day Years [...] 9:00 AM EDT Office Visit [facility] OPTOMETRY [address] [place] [address] FuadKaron foss, OD [address] [place] [address] documented as of this encounter Visit Diagnoses Not on filedocumented in this encounter Care Teams Vanstone Machine Operator Relationship Specialty Start Date End Date Anushka Figueredo DO [address] [place] [address] PCP - General Family Medicine 10/03/18 documented as of this encounter
--- OUTSIDE RECORDS SUMMARY | 2025-01-02 08:47 | XMS_ITS | Encounter Summary ---
Author Organization [employer] Address [address] [facility] 7[address] [place] [address] Care Team Providers Care Obstetrical Tech Name Role Phone RoxannaAnushka lara Primary Care Provider + [phone] Reason for Visit * Reason Comments Med Refill Encounter Details Date Type Department Care Team ([facility] st Contact Info) Description 12/21/2024 Refill [facility]S [address] [place] [address] Janine Pulido MD [address] [place] [address] Chronic pain of both knees Social History [...] Description 02/13/2025 9:00 AM EDT Office Visit [facility] OPTOMETRY [address] [place] [address] Fuad, Karon, OD [address] [place] [address] documented as of this encounter Visit Diagnoses Diagnosis Chronic pain of both knees documented in this encounter Additional Health Concerns Assessment Noted Time PHQ-9 Depression Total Score: 4 07/24/20 24 9:07 AM EDT documented as of this encounter Care Teams Obstetrical Tech Relationship Specialty Start Date End Date Anushka Figueredo DO [address] [place] [address] PCP - General Family Medicine 10/03/18 documented as of this encounter
--- OUTSIDE RECORDS SUMMARY | 2025-01-02 08:47 | XMS_ITS | Encounter Summary ---
Author Organization [employer] Address [address] [facility] [address] [place] [address] Care Team Providers Care Resource Protection Specialist Name Role Phone Anushka Figueredo DO Primary Care Provider + [phone] Reason for Visit * Reason Comments Med Refill Encounter Details Date Type Department Care Team (Late st Contact Info) Description 08/04/2023 Refill [facility] MEDICINE [address] [place] [address] Anushka Figueredo DO [address] [place] [address] Urinary incontinence, unspecified type Social History Tobacco [...] Office Visit [facility] OPTOMETRY [address] [place] [address] Fuad, Karon, OD [address] [place], [place] [phone] documented as of this encounter Visit Diagnoses Diagnosis Urinary incontinence, unspecified type documented in this encounter Additional Health Concerns Assessment Noted Time PHQ-9 Depression Total Score: 0 12/10/19 23 10:17 AM EST documented as of this encounter Care Teams Resource Protection Specialist Relationship Specialty Start Date End Date Anushka Figueredo DO [address] [place], [place] [phone] PCP - General Family Medicine 10/03/18 documented as of this encounter
--- OUTSIDE RECORDS SUMMARY | 2025-01-02 08:47 | XMS_ITS | Encounter Summary ---
Author Organization [employer] Address [address] [facility] [address] [place] [address] Care Team Providers Care Doughnut Glazier Name Role Phone Anushka Figueredo DO Primary Care Provider [phone] Reason for Visit * Reason Onset Date Comments Appointment Request 09/11/2024 Encounter Details Date Type Department Care Team ([facility] st Contact Info) Description 09/11/2024 Telephone [facility] MEDICINE [address] [place] [address] Anushka Figueredo DO [address] [place] [address] Appointment Request Social History Tobacco Use Types [...] r/s apt for 09/11. Contact pt at [phone] documented in this encounter Plan of Treatment Upcoming Encounters Date Type Department Care Team (Late st Contact Info) Description 02/13/2025 9:00 AM EDT Office Visit [facility] OPTOMETRY [address] [place] [address] Fuad, Karon, OD [address] [place] [address] documented as of this encounter Visit Diagnoses Not on filedocumented in this encounter Additional Health Concerns Assessment Noted Time PHQ-9 Depression Total Score: 4 07/24/20 24 9:07 AM EDT documented as of this encounter Care Teams Doughnut Glazier Relationship Specialty Start Date End Date Anushka Figueredo DO [address] [place] [address] PCP - General Family Medicine 10/03/18 documented as of this encounter
--- OUTSIDE RECORDS SUMMARY | 2025-01-02 08:47 | XMS_ITS | Encounter Summary ---
Author Organization [employer] Address [address] [facility] [address] [place] [address] Care Team Providers Care Forest Resource Specialist Name Role Phone Anushka Figueredo DO Primary Care Provider [phone] Reason for Visit * Reason Comments Med Refill Encounter Details Date Type Department Care Team ([facility] st Contact Info) Description 09/18/2024 Refill [facility] CHC MED & PEDS [address] [place] [address] Anushka Figueredo DO [address] [facility] [place] [address] Chronic pain of both knees Social History [...] Description 02/13/2025 9:00 AM EDT Office Visit [facility] OPTOMETRY [address] [place] [address] Fuad, Karon, OD [address] [place] [address] documented as of this encounter Visit Diagnoses Diagnosis Chronic pain of both knees documented in this encounter Additional Health Concerns Assessment Noted Time PHQ-9 Depression Total Score: 4 07/24/20 24 9:07 AM EDT documented as of this encounter Care Teams Forest Resource Specialist Relationship Specialty Start Date End Date Anushka Figueredo DO [address] [place] [address] PCP - General Family Medicine 10/03/18 documented as of this encounter
--- OUTSIDE RECORDS SUMMARY | 2025-01-02 08:47 | XMS_ITS | Encounter Summary ---
Author Organization [employer] Address [address] [place] [address] [address] [place] [address] Care Team Providers Care Water Inspector Name Role Phone LorenaAnushka mcqueen Primary Care Provider [phone] Reason for Visit * Reason Onset Date Comments Med Refill 09/19/2024 Encounter Details Date Type Department Care Team ([facility] st Contact Info) Description 09/19/2024 Refill [facility] MEDICINE [address] [place] [address] Janine Ley MD [address] [place] [address] Social History Tobacco Use Types Packs/Day Years [...] Description 02/13/2025 9:00 AM EDT Office Visit [facility] OPTOMETRY [address] [place] [address] Fuad, Karon, OD [address] [place] [address] documented as of this encounter Visit Diagnoses Not on filedocumented in this encounter Additional Health Concerns Assessment Noted Time PHQ-9 Depression Total Score: 4 07/24/20 24 9:07 AM EDT documented as of this encounter Care Teams Water Inspector Relationship Specialty Start Date End Date Anushka Figueredo DO [address] [place] [address] PCP - General Family Medicine 10/03/18 documented as of this encounter
--- OUTSIDE RECORDS SUMMARY | 2025-01-02 08:47 | XMS_ITS | Clinical Summary ---
Author Organization [employer] Address [address] [place] [address] 7[address] [place] [address] Care Team Providers Care Charge Preparation Technician Name Role Phone RoxannaAnushka lara Primary Care Provider + [phone] Allergies Active Allergy Reactions Criticality Noted Date [...] for muscle spasms. 021 Active nystatin (Mycostatin) 168949 UNIT/GM powder Apply topically every 12 (twelve) [...] nostrils with each dose 2 each 2 023 Active propranolol (Inderal) 20 MG tablet Take 20 mg by mouth 2 times daily. Active topiramate (Topamax) 25 MG tablet Take 25 mg by mouth at bedtime. 024 Active gabapentin (Neurontin) 300 MG capsule TAKE 1 CAPSULE BY MOUTH THREE TIMES DAILY IN THE MORNING, EVENING, AND BEDTIME 90 capsule 3 024 Active divalproex (Depakote ER) 250 MG 24 hr tablet Take 250 mg by mouth Once per day. Active cholecalciferol (Vitamin D-3) 50 MCG (2000 UT) capsule Take 1 capsule (50 mcg) by mouth Once per day. 30 capsule 11 024 Active Magnesium 400 MG capsule Take 400 mg by mouth 2 times daily. 60 capsule 11 024 2024 Active Blood Pressure kit 1 each 1 (one) time per week. 1 kit 024 Active oxybutynin XL (Ditropan-XL) 10 MG 24 hr tabletIndicatio ns:Urinary incontinence, unspecified type TAKE 1 TABLET BY MOUTH EVERY MORNING DO NOT BREAK, CRUSH, DISSOLVE OR CHEW 90 tablet 1 024 Active Skin Protectants, Misc. (eucerin) cream Apply topically if needed for wound care or dry skin. 396 g 3 025 2025 Active albuterol (2.5 MG/3ML) 0.083% nebulizer solution INHALE 1 AMPULE USING A NEBULIZER EVERY 4 HOURS NEEDED FOR WHEEZING OR SHORTNESS OF BREATH 90 mL 1 025 Active Diclofenac Sodium 1 % gel Apply 1 Application topically if needed in the morning and at bedtime (pain). 50 g 2 025 Active acetaminophen (Tylenol 8 Hour) 650 MG ER tablet TAKE 1 TABLET BY MOUTH EVERY 6 HOURS NEEDED FOR PAIN 60 tablet 025 Active oxyCODONE (Roxicodone) 5 MG immediate release tabletIndicatio ns:Chronic pain of both knees Take 1 tablet (5 mg) by mouth every 6 (six) hours if needed for severe pain. 112 tablet 025 Active senna (Senokot) 8.6 MG tablet TAKE 2 TABLETS ONCE DAILY IN THE MORNING NEEDED FOR CONSTIPATION 180 tablet 3 025 Active Multiple Vitamins-Minera ls (PreserVision AREDS 2) capsuleIndicati ons:Dry eyes TAKE 1 CAPSULE BY MOUTH TWICE DAILY IN THE MORNING AND IN THE EVENING 180 capsule 3 025 Active amLODIPine (Norvasc) 10 MG tabletIndicatio ns:Essential hypertension TAKE 1 TABLET BY MOUTH EVERY MORNING 90 tablet 3 025 Active lisinopril 30 MG tablet TAKE 1 TABLET BY MOUTH EVERY MORNING 90 tablet 3 025 Active amitriptyline (Elavil) 50 MG tablet TAKE 1 TABLET BY MOUTH AT BEDTIME 30 tablet 5 025 Active loratadine (Claritin) 10 MG tabletIndicatio ns:Chronic allergic rhinitis TAKE 1 TABLET BY MOUTH EVERY MORNING 30 tablet 5 025 Active senna (Senokot) 8.6 MG tablet TAKE 2 TABLETS BY MOUTH ONCE DAILY IN THE MORNING NEEDED FOR CONSTIPATION 180 tablet 3 024 2024 Discontinued lisinopril 30 MG tablet TAKE 1 TABLET BY MOUTH EVERY MORNING 90 tablet 3 024 2024 Discontinued Multiple Vitamins-Minera ls (PreserVision AREDS 2) capsuleIndicati ons:Dry eyes TAKE 1 CAPSULE BY MOUTH TWICE DAILY IN THE MORNING AND IN THE EVENING 180 capsule 3 024 2024 Discontinued amLODIPine (Norvasc) 10 MG tabletIndicatio ns:Essential hypertension TAKE 1 TABLET BY MOUTH EVERY MORNING 90 tablet 3 024 2024 Discontinued loratadine (Claritin) 10 MG tabletIndicatio ns:Chronic allergic rhinitis TAKE 1 TABLET BY MOUTH EVERY MORNING 30 tablet 5 024 2024 Discontinued amitriptyline (Elavil) 50 MG tablet Take 1 tablet (50 mg) by mouth at bedtime. 30 tablet 5 024 2024 Discontinued acetaminophen (Tylenol 8 Hour) 650 MG ER tablet TAKE 1 TABLET BY MOUTH EVERY 6 HOURS NEEDED FOR PAIN 60 tablet 024 2024 Discontinued(R eorder (will not trigger notification to Pharmacy)) oxyCODONE (Roxicodone) 5 MG immediate release tabletIndicatio ns:Chronic pain of both knees TAKE 1 TABLET BY MOUTH EVERY 6 HOURS NEEDED FOR SEVERE PAIN 112 tablet 025 2024 Discontinued(R eorder (will not trigger notification to Pharmacy)) Active Problems Problem Noted Date Diagnosed Date [...] Utox and pill count as expected from PHOTOGRAPHY INTERN visit 02/01/24, so not performed today Regular [...] pain left shoulder and bilat knees Last PHOTOGRAPHY INTERN Agreement: 10/16/24, Dr. Figueredo Assessment & Plan (10/16/2024 1:37 PM EST): Timeline: - 10/16/24: PHOTOGRAPHY INTERN Renewal. Group visit, utox/pill count WNL Assessment [...] Last Assessment & Plan: Patient presented to [facility] on 09/16 with headache, double vision, right side ptosis following a knee replacement surgery on September 09. 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 Transferred to [facility] on 09/19 after not improving with steroids. [...] Assessment & Plan: Right knee arthroplasty at [facility] on September 09. Discharged home [...] Encounters Date Type Department Care Team Description 12/30/2024 Refill [facility] [address] [place] [address] Anushka Figueredo DO Chronic allergic rhinitis 12/26/2024 Telephone [facility] [address] [place] [address] Anushka Figueredo DO Reschedule Chronic Pain group 12/26/2024 Refill [facility] [address] [place] [address] Anushka Figueredo DO Dry eyes; Essential hypertension 12/21/2024 Refill [facility] [address] [place], [place] [phone] Janine Pulido MD Chronic pain of both knees 12/21/2024 Telephone [facility] [address] [place], [place] [phone] Anushka Figueredo DO 12/21/2024 Refill [facility] [address] [facility] [place] [address] Anushka Figueredo DO Chronic pain of both knees 12/18/2024 Travel 12/14/2024 Refill [facility] [address] [facility] [place] [address] Migue Craig MD 11/30/2024 Orders Only [facility] [address] [place] [address] Colleen Paulson MD 11/23/2024 Refill [facility] [address] [facility] [address] Anushka Figueredo, 11/21/2024 Telephone [facility] [address] [facility] [address] Anushka Figueredo, Results 11/20/2024 Refill [facility] [address] [place] [address] Anushka Figueredo DO Chronic pain of both knees 11/11/2024 Orders Only [facility] [place] [address] Anushka Figueredo DO 10/31/2024 9:00 AM EST Office Visit [facility] [place] [address] Anushka Figueredo DO Essential hypertension (Primary Dx); [...] for malignant neoplasm of colon 10/31/2024 Telephone [facility] [address] [facility] [place] [address] Anushka Figueredo, 10/31/2024 Travel 10/24/2024 Telephone [facility] [address] [place] [address] Anushka Figueredo DO Durable Medical Equipment 10/23/2024 Refill [facility] [address] [place] [address] Anushka Figueredo DO Chronic pain of both knees 10/19/2024 Patient Outreach [address] [address] Anuskha Figueredo DO Pre-visit Planning (SDOH screening negative and tobacco screening negative) 10/18/[address] [address] Mar Rick [place] Durable Medical Equipment (DME script Recliner to CCA.) 10/17/[address] [address] Anushka Figueredo DO Durable Medical Equipment (DME for Liners(L&C)/DME for Recliner(CCA)) 10/17/2024 Telephone [facility] [address] [place] [address] Anna Elizabeth FNP Durable Medical Equipment (10 in 1 pillow ) 10/16/2024 9:45 AM EST Office Visit [address] [address] Anna Elizabeth FNP Osteoarthritis, unspecified osteoarthritis type, unspecified site (Primary Dx); Chronic pain syndrome; Long-term current use of opiate analgesic 10/16/2024 Telephone [facility] [address] [place] [address] Anna Elizabeth FNP PHOTOGRAPHY INTERN: Tier Level 10/16/[address] [address] Camila Chavez RN PHOTOGRAPHY INTERN Renewal today 10/16/2024 Travel from Last 3 Months Immunizations Name Administration [...] [facility] [address] [place] [address] Fuad Karon, OD [address] [place] [address] Health Maintenance Due Date Last Done Comments [...] EST Narrative 11/30/2024 8:25 AM EST ? [facility] ?[address] ?[place] [address] ? Ultrasound Report ? Signed ? Patient: Tran Azeb,Gretel ?MR#: ?? [id number] ? : 1960 ?Acct:[id number] ? Age/Sex: 64 / F ?ADM Date: 11/30/24 ? Loc: HO.US ? Attending Dr: Anushka Figueredo DO ? Ordering Physician: Anushka Figueredo DO ?? Date of Service: 11/30/24 ?? Procedure(s): US abdomen complete ?? Accession Number(s): [id number] ? cc: Anushka Figueredo DO ? EXAMINATION: [...] DD/ 0744 ? TD/TT: 11/30/24 0805 ? Mover: ? Procedure Note Donprafulkirtiggyter, Image - 11/30/2024 [place] [address] Ultrasound Report Signed Patient: Garrick Kendall#: [id number] : 8Acct:[id number] Age/Sex: 64 / FADM Date: 11/30/24 Loc: HO.US Attending Dr: Anushka Figueredo DO Ordering Physician: Anushka Figueredo DO Date of Service: 11/30/24 Procedure(s): US abdomen complete Accession Number(s): [id number] cc: Anushka Figueredo DO EXAMINATION: US ABDOMEN [...] by: Maulik Mcknight MD 11/30/2024 08:22 AM EST Dictated By: Maulik Mcknight MD Signed By: <Electronically signed by Maulik Mcknight MD in OV> 11/30/24821 DD/ TD/TT: 11/30/24 08 Mover: us Anushka Figueredo DO IMG US PROCEDURES Final Resu lt * POCT LINDSEY-14 Urine Drug Screen (10/16/2024 1:06 PM EST) Oxycodone Screen, Urine Positive Urine Urine specimen obtained by clean catch procedure / Unknown 10/16/2024 1:06 PM EST Camila Schuler, RN - 10/16/2024 1:06 PM EST UTOX cup Lot#[id number] Exp. 06/27/26 Internal Pass Control us Anna OSPINA POINT OF CARE TEST ENTER/EDIT ORDERABLES Final Result * BI Mammogram Screening Tomosynthesis Bilateral (05/16/2024 8:00 AM EDT) Anatomical Region Laterality Modality Breast Bilateral Mammography 05/16/2024 8:00 AM EDT Narrative 05/18/2024 4:20 PM EDT ? [facility] [place] ? [address] ?[place] [address] ? Mammography Report ? Signed ? Patient: Tran Azeb,Gretel ?MR#: ?? [id number] ? : 1960 ?Acct:[id number] ? Age/Sex: 63 / F ?ADM Date: 08/14/24 ? Loc: HO.MAMMO ? Attending Dr: Anushka Figueredo DO ? Ordering Physician: Anushka Figueredo DO ?Results: 2B ?? enign Findings ? Date of Service: 05/16/24 ?Follow Up: 1 Year From Orig ?? inal Mammogram ? Procedure(s): MM tomosynthesis screening BI ?? Accession Number(s): [id number] ? cc: Anushka Figueredo DO ? EXAMINATION: ?? MM SCREENING DIGITAL BREAST TOMOSYNTHESIS, BILATERAL ? CLINICAL INFORMATION: ? Screening. Asymptomatic. ? The patient has a history of prior right breast cancer. ? COMPARISON: ?? Mammography: This study is compared with prior exams dating back to ?? 2018. ? TECHNIQUE: ?? Digital breast tomosynthesis is [...] 1616 ? DD/ 0800 ? TD/TT: ? Mover: ? Procedure Note Aravind Balbuena - 05/18/2024 Mckayla [facility] [address] [place] [address] Mammography Report Signed Patient: Garrick Kendall#: [id number] : 8Acct:[id number] Age/Sex: 63 / FADM Date: 05/16/24 Loc: HO.MAMMO Attending Dr: Anushka Figueredo DO Ordering Physician: Anushka Figueredoults: 2B enign Findings Date of Service: 05/16/24Follow Up: 1 Year From Orig inal Mammogram Procedure(s): MM tomosynthesis screening BI Accession Number(s): [id number] cc: Anushka Figueredo DO EXAMINATION: MM SCREENING [...] in OV> 05/18/24 1616 DD/ 0800 TD/TT: Mover: us Anushka Figueredo DO IMG BI PROCEDURES Final Resu lt * (ABNORMAL) Lipid Panel, Standard (02/18/2024 9:29 AM EDT) Triglycerides 72 <150 mg/dL [facility] Comment:Desirable Triglyceri de: less than 150 mg/dLBorderline High Triglyceride 150-199 mg/dLHigh Triglyceride: 200-499 mg/dLVery High Triglyceride: greater than or equal to 5OO mg/dL Cholesterol 186 <200 mg/dL [facility] Comment:Desirable Cholestero l: less than 200 mg/dLBorderline High Cholesterol: 200-239 mg/dLHigh Cholesterol: greater than 239 mg/dL LDL Cholesterol Calculated 101(H) <100 mg/dL [facility] Comment:Desirable LDL: less than 100 mg/dLNear Optimal/Above Optimal LDL: 110- 129 mg/dLBorderline High LDL: 130-159 mg/dLHigh LDL: 160-189 mg/dLVery High LDL: greater than or equal to 190 mg/dL HDL Cholesterol 71 >40 mg/dL [facility] Comment:Desirable HDL: great er than 40 mg/dL Note: This HDL assay may give artificially low results in patients with liver disease. Blood Venous blood specimen / Unknown 02/18/2024 9:29 AM EDT 02/18/2024 9:29 AM EDT us Anushka Figueredo DO LAB BLOOD ORDERABLES Final R esult [facility] [address] [place] [address] [phone] * (ABNORMAL) Vitamin D 25-OH Total (01/19/2021 8:25 AM EDT) [facility] Vitamin D 25-OH Total 20.2 >30 ng/mL [facility] Comment: Health Based Reference Values* [...] LC-MS/MS. Hepatitis B Surface Antibody NONREACTIVE Nonreactive [facility] Comment:Nonreactive: < 8.00 mIU/mL Alanine Aminotransferase 15 0 - 31 U/L [facility] Albumin Level 3.8 3.5 - 5.0 g/dL [facility] Alkaline Phosphatase 76 39 - 117 U/L [facility] Aspartate Amino Transferase 21 5 - 31 U/L [facility] Bilirubin Direct 0.2 0.0 - 0.5 mg/dL [facility] Bilirubin Total 0.6 0.0 - 1.0 mg/dL [facility] Total Protein 7.0 6.5 - 8.0 g/dL [facility] HIV AB/AG Nonreactive Nonreactive FOUNDA [...] detection of this assay. ?? The [employer] HIV Ag/Ab Combo assay result and supplemental assay results should be interpreted in conjunction with the patient's clinical presentation, history and other laboratory results. ??If the results are inconsistent with clinical evidence, additional testing is suggested to confirm the result. Anion Gap 11(L) 12 - 20 [facility] Comment: Blood Urea Nitrogen [...] >60 [facility] Comment: NOTE: ??For -Afghan individuals, multiply the result ?by 210. ?? Chronic Kidney Disease: ??Estimated GFR < 60 mL/min/1.73m2 Severe Kidney Disease: ??Estimated GFR < 15 mL/min/1.73m2 Glucose Random 87 60 - 115 mg/dL [facility] Potassium 4.4 3.3 - 5.1 mmol/L [facility] Sodium 141 135 - 145 mmol/L [facility] Hepatitis B Surface Antigen Negative Negative [facility] Cholesterol 161 mg/dL [facility] Comment: Desirable Cholesterol: ?less than 200 mg/dL Borderline High Cholesterol: ??200-239 mg/dL High Cholesterol: ? greater than 239 mg/dL HDL Cholesterol 69 mg/dL [facility] Comment: Desirable HDL: ??greater than [...] equal to ?190 mg/dL Triglycerides 51 mg/dL [facility] Comment: Desirable Triglyceride: ? less than 150 mg/dL Borderline High Triglyceride ??150-199 mg/dL High Triglyceride: ?200-499 mg/dL Very High Triglyceride: ? greater than or equal to ? 5OO mg/dL CT PCR NOT DETECTED Not Detect. [facility] Comment: A not detected test [...] NG PCR NOT DETECTED Not Detect. [facility] Comment: A not detected test [...] psychological consequences. Hepatitis C Antibody Nonreactive Nonreactive [facility] Comment: Antibodies to HCV not detected; does not exclude early acute HCV infection. Creatinine Urine 148.77 mg/dL [facility] Microalbum/Creatin ine Ratio Ur 4.0 [...] liver disease. LDL Cholesterol Calculated 82 mg/dl [facility] Comment: Desirable LDL: ? less [...] Alanine Aminotransferase 15 0 - 31 U/L [facility] Albumin Level 3.8 3.5 - 5.0 g/dL [facility] Alkaline Phosphatase 76 39 - 117 U/L [facility] Aspartate Amino Transferase 21 5 - 31 U/L [facility] Bilirubin Direct 0.2 0.0 - 0.5 mg/dL [facility] Bilirubin Total 0.6 0.0 - 1.0 mg/dL [facility] Total Protein 7.0 6.5 - 8.0 g/dL [facility] Hematocrit 42.0 37 - 47 % [facility] Hemoglobin 12.8 12.0 - 16.0 g/dl [facility] Mean Corpuscular Hemoglobin 27.6 27.0 - 33.0 pg [facility] Mean Corpuscular HGB Conc 30.5(L) 31.0 - 35.0 g/dl [facility] Mean Corpuscular Volume 90.5 80 - 98 fL [facility] Mean Platelet Volume 11.0 9.4 - 12.3 fL [facility] NRBC Abs Auto 0.000 0.0 - 0.012 X10*3/uL [facility] NRBC Pct Auto 0.0 0.0 - 0.2 /100WBC [facility] Platelet Count 190 160 - 400 X10*3/uL [facility] Red Blood Count 4.64 4.20 - 5.50 X10*6/uL [facility] Red Cell Distribution Width 14.1 11.0 - 16.0 % [facility] White Blood Count 4.9 4.8 - 10.8 X10*3/uL [facility] Anion Gap 11(L) 12 - 20 [facility] Comment: Blood Urea Nitrogen 16 9 - 16 mg/dL [facility] Calcium 9.3 8.4 - 10.2 mg/dL [facility] Carbon Dioxide 29 22 - 29 mmol/L [facility] Chloride 105 96 - 108 mmol/L [facility] Creatinine, Serum 0.68 0.5 - 1.4 mg/dL [facility] Estimated Glomerular Filt Rate >60 [facility] Comment: NOTE: ??For -Afghan individuals, multiply the result ?by . ?? Chronic Kidney Disease: ??Estimated GFR < 60 mL/min/1.73m2 Severe Kidney Disease: ??Estimated GFR < 15 mL/min/1.73m2 Glucose Random 87 60 - 115 mg/dL [facility] Potassium 4.4 3.3 - 5.1 mmol/L [facility] Sodium 141 135 - 145 mmol/L [facility] Thyroid Stimulating Hormone 0.66 0.32 - 4.0 uIU/mL [facility] Comment:TSH 3rd Generation ( [employer]) Free T4 (Free Thyroxine) 1.11 0.71 - 1.85 ng/dL [facility] Syphilis Screen Nonreactive Nonreactive [facility] 01/19/2021 8:25 AM EDT Anushka Figueredo DO HISTORICAL/NON ORDERABLE LAB S Final Result [facility] [address] * Hm Colonoscopy (11/07/2014 3:46 PM EST) Historical Provider HEALTH MAINTENANCE Final Result from Last 3 Months or Most Recently Relevant to Health Maintenance Insurance [facility] Care Teams Charge Preparation Technician Relationship Specialty Start Date End Date Anushka Figueredo DO [address] [place] [id number] PCP - General Family Medicine 10/03/18
--- OUTSIDE RECORDS SUMMARY | 2025-01-02 08:47 | XMS_ITS | Encounter Summary ---
Author Organization [employer] Address [address] [facility] [address]t [place] [address] Care Team Providers Care Principal Product Manager Name Role Phone Anushka Figueredo DO Primary Care Provider [phone] Reason for Visit * Reason Comments Med Refill Encounter Details Date Type Department Care Team (Late st Contact Info) Description 12/30/[address] [facility] [address] [place] [address] nAushka Figueredo DO [address] [place] [address] Chronic allergic rhinitis Social History Tobacco Use Types Packs/Day Years [...] Description 02/13/2025 9:00 AM EDT Office Visit [facility] [address] [place] [address] Fuad, Karon, OD [address] [place] [address] documented as of this encounter Visit Diagnoses Diagnosis Chronic allergic rhinitis documented in this encounter Additional Health Concerns Assessment Noted Time PHQ-9 Depression Total Score: 4 07/24/20 24 9:07 AM EDT documented as of this encounter Care Teams Principal Product Manager Relationship Specialty Start Date End Date Anushka Figueredo DO [address] [place] [address] PCP - General Family Medicine 10/03/18 documented as of this encounter
--- OUTSIDE RECORDS SUMMARY | 2025-01-02 08:47 | XMS_ITS | Encounter Summary ---
Author Organization [employer] Address [address] [place] [address] [address] [place] [address] Care Team Providers Care Technical Instructor Name Role Phone Anushka Figueredo DO Primary Care Provider [phone] Reason for Visit * Reason Onset Date Comments Med Refill 09/25/2024 Encounter Details Date Type Department Care Team ([facility] st Contact Info) Description 09/25/2024 Refill [facility] [address] [place] [address] Anushka Figueredo DO [address] [place] [address] Chronic pain of both knees Social History [...] Description 02/13/2025 9:00 AM EDT Office Visit [facility] [address] [place] [address] Fuad, Karon, OD [address] [place] [address] documented as of this encounter Visit Diagnoses Diagnosis Chronic pain of both knees documented in this encounter Additional Health Concerns Assessment Noted Time PHQ-9 Depression Total Score: 4 07/24/20 24 9:07 AM EDT documented as of this encounter Care Teams Technical Instructor Relationship Specialty Start Date End Date Anushka Figueredo DO [address] [place] [address] PCP - General Family Medicine 10/03/18 documented as of this encounter
--- OUTSIDE RECORDS SUMMARY | 2025-01-02 08:47 | XMS_ITS | Encounter Summary ---
Author Organization [facility] Address [address] [place] [address] Care Team Providers Care Geochemistry Teacher Name Role Phone Pcp, Sara MD Primary Care Provider Crista Hernandez Unavailable Anushka Figueredo Primary Care Provider [phone] Encounter Details Date Type Department Care Team (Late st Contact Info) Description 10/29/2021 Orders Only [facility] Department of Neurosurgery [address] [place] [address] Ratna Gill PA-C [address] [facility] [address] Social History Tobacco Use Types Packs/Day Years [...] on filedocumented in this encounter Care Teams Geochemistry Teacher Relationship Specialty Start Date End Date PcpSara MD [address] [place] [address] PCP - General Internal Medicine 09/18/21 10/29/21 Anushka Figueredo [address] [place] [phone] PCP - General 10/30/21 Crista Gaines MBBS [address] [place] [address] [facility] [place] [address] Consulting Physician Endocrinology 10/09/21 documented as of this encounter
--- OUTSIDE RECORDS SUMMARY | 2025-01-02 08:47 | XMS_ITS | Encounter Summary ---
Author Organization [employer] Address [address] [facility] 7t [place] [address] Care Team Providers Care Executive Receptionist Name Role Phone Anushka Figueredo DO Primary Care Provider +[phone] Encounter Details Date Type Department Care Team ([facility] st Contact Info) Description 12/21/2024 Telephone [facility] MED & PEDS [address] [place], [place] [id number] Anushka Figueredo DO [address] [facility] [place] [address] Social History Tobacco Use Types Packs/Day Years [...] Description 02/13/2025 9:00 AM EDT Office Visit [facility] OPTOMETRY [address] [place], [place] [phone] Karon Merida, OD 230 [place] [address] documented as of this encounter Visit Diagnoses Not on filedocumented in this encounter Additional Health Concerns Assessment Noted Time PHQ-9 Depression Total Score: 4 07/24/20 24 9:07 AM EDT documented as of this encounter Care Teams Executive Receptionist Relationship Specialty Start Date End Date Anushka Figueredo DO 230 [place] [address] PCP - General Family Medicine 10/03/18 documented as of this encounter
--- OUTSIDE RECORDS SUMMARY | 2025-01-02 08:47 | XMS_ITS | Encounter Summary ---
Author Organization [employer] Address [address] [place] [address] 7t [place] [address] Care Team Providers Care Hedis Review Nurse Name Role Phone Anushka Figueredo DO Primary Care Provider [phone]- [phone] Reason for Visit * Reason Onset Date Comments Durable Medical Equipment 10/24/2024 Encounter Details Date Type Department Care Team ([facility] st Contact Info) Description 10/24/2024 Telephone [facility] MEDICINE [address] [place] [address] Anushka Figueredo DO 230 [place] [address] Durable Medical Equipment Social History Tobacco Use [...] Nebulizer. IF any questions contact pt at [phone] documented in this encounter Plan of Treatment Upcoming Encounters Date Type Department Care Team (Late st Contact Info) Description 02/13/2025 9:00 AM EDT Office Visit [facility] OPTOMETRY [address] [place] [address] Karon Merida, OD 230 [place] [address] documented as of this encounter Visit Diagnoses Not on filedocumented in this encounter Additional Health Concerns Assessment Noted Time PHQ-9 Depression Total Score: 4 07/24/20 24 9:07 AM EDT documented as of this encounter Care Teams Hedis Review Nurse Relationship Specialty Start Date End Date Anushka Figueredo DO 230 [place] [address] PCP - General Family Medicine 10/03/18 documented as of this encounter
[2025-01-02] MEDS: gadobutroL 7.5 ML VIAL IVPUSH (09:42)
== END 2025-01-02 08:27 | disposition home or self-care (01) ==
LOC: HO.MRI 08:26
PROVIDERS: PCP Family Medicine; Visit Provider Student in an Organized Health Care Education/Training Program
DX: E23.6 Other disorders of pituitary gland (principal)
CPT/HCPCS: 70553; A9585

== ENCOUNTER 2025-01-18 08:39 | Outpatient (REF) | payer OTHER, SELFPAY ==
--- NOTE | ~2025-01-18 | FL_ITS ---
EXAMINATION: XR BARIUM SWALLOW CLINICAL INFORMATION: Difficulty swallowing solid foods and pelvis. COMPARISON: None available. TECHNIQUE: Barium swallow with thick barium and barium coated saltine crackers was performed in upright view. Thin barium was administered in prone lying position. FINDINGS: Following oral administration of thick barium and barium coated saltine cracker there is normal propagation bolus from the oral cavity through the pharynx, esophagus into stomach without obstruction, narrowing or stricture. No laryngeal penetration or aspiration seen. On oral administration of thin barium in prone lying position there is normal distention of esophagus with antegrade propagation of bolus. No extrinsic compression seen. There is a small sliding hiatal hernia with moderate gastroesophageal reflux. A small caliber stomach is noted. FLUOROSCOPY TIME: 2 minute 13 seconds DOSE AREA PRODUCT: 2121 uGy-m2 (microgray-meter squared) FL/FL barium swallow IMPRESSION: Small sliding hiatal hernia with gastroesophageal reflux. No intraluminal filling defect or obstruction seen. Electronically signed by: Janes Jensen MD 01/18/2025 10:56 AM EDT
--- OUTSIDE RECORDS SUMMARY | 2025-01-18 09:02 | XMS_ITS | Encounter Summary ---
Author Organization [employer] Address 75 [facility] 7t [place] [address] Care Team Providers Care Internal Grinder Set Up Operator Name Role Phone Anushka Figueredo DO Primary Care Provider [phone]- [phone] Reason for Visit * Reason Comments Med Refill Encounter Details Date Type Department Care Team (Late st Contact Info) Description 12/07/2022 Refill [facility] MED & PEDS [address] [place] [address] Anushka Figueredo DO 230 [place] [address] Chronic pain of both knees Social History [...] Care Team (Late st Contact Info) Description 01/22/2025 9:45 AM EDT Office Visit [facility] MEDICINE [address] [place] [address] 02/13/2025 9:00 AM EDT Office Visit [facility] OPTOMETRY [address] [place] [address] Fuad, Karon, OD 230 [place] [address] documented as of this encounter Visit Diagnoses Diagnosis Chronic pain of both knees documented in this encounter Additional Health Concerns Assessment Noted Time PHQ-9 Depression Total Score: 0 12/02/19 23 9:55 AM EST documented as of this encounter Care Teams Internal Grinder Set Up Operator Relationship Specialty Start Date End Date Anushka Figueredo DO 230 [place] [address] PCP - General Family Medicine 10/03/18 documented as of this encounter
--- OUTSIDE RECORDS SUMMARY | 2025-01-18 09:02 | XMS_ITS | Encounter Summary ---
Author Organization [employer] Address 75 [facility] 7t [place] [address] Care Team Providers Care Food Product Inspector Name Role Phone RoxannaAnushka lara Primary Care Provider + [phone] Encounter Details Date Type Department Care Team (Late st Contact Info) Description 11/30/2024 Orders Only [facility] MEDICINE 230 [place] [address] Colleen Paulson MD 230 [place] [address] Social History Tobacco Use Types Packs/Day Years [...] Description 01/22/2025 9:45 AM EDT Office Visit [facility] MEDICINE 230 [place] [address] 02/13/2025 9:00 AM EDT Office Visit [facility] OPTOMETRY [address] [place] [address] Fuad, Karon, OD 230 [place] [address] documented as of this encounter Visit Diagnoses Not on filedocumented in this encounter Additional Health Concerns Assessment Noted Time PHQ-9 Depression Total Score: 4 07/24/20 24 9:07 AM EDT documented as of this encounter Care Teams Food Product Inspector Relationship Specialty Start Date End Date Anushka Figueredo DO 230 [place] [address] PCP - General Family Medicine 10/03/18 documented as of this encounter
--- OUTSIDE RECORDS SUMMARY | 2025-01-18 09:02 | XMS_ITS | Clinical Summary ---
Author Organization [facility] Address [address] [place] [address] Care Team Providers Care Regulatory Services Consultant Name Role Phone Crista Gaines Unavailable [phone] Anushka Figueredo Primary Care Provider [phone] Allergies No known active allergies Medications acetaminophen [...] tablet by mouth daily. Active PreserVision AREDS-2 [id number] pi-knac-jr-mg capsule TAKE 1 CAPSULE BY MOUTH TWICE [...] (09/21/2021 2:31 PM EST): Patient presented to [facility] on 09/16 with headache, double vision, right side ptosis following a knee replacement surgery on September 09. 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 Transferred to [facility] on 09/19 after not improving with [...] (09/20/2021 4:28 PM EST): Patient presented to [facility] on 09/16 with headache, double vision, right side ptosis following a knee replacement surgery on September 09. 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 Transferred to [facility] on 09/19 after not improving with [...] (09/18/2021 9:18 PM EST): Patient presented to [facility] on 09/16 with chief complaint of headache, [...] currently well controlled. During the admission at [facility] patient required hydralazine for hypertensive urgency. Plan Continue amlodipine 10 mg daily and lisinopril 30 mg daily Continue telemetry monitoring History of right knee joint replacement 09/18/20 Assessment & Plan (09/21/2021 8:51 AM EST): Right knee arthroplasty at [facility] on September 09. Discharged home [...] 4:27 PM EST): Right knee arthroplasty at [facility] on September 09. Discharged home [...] had regularly replacement on September 09 at [facility]. Per orthopedics recommendation she needs to be [...] this topic Medical Devices Implanted Type Area Energy Rater Device Identifier Shelf Expiration Date Model / Serial / Lot 6fr O.D. Option Vena Cava Filter, Femoral/Jugular Color Coded. Replaces [id number] - [id number] Implanted:Qty: 1 on 09/21/2021 at [facility] Filter [employer] 03/03/2024 [id number] / / [id number] Insurance MEDICARE MANAGED - MISCELLANEOUS Advance Directives For more information, please contact: [phone] * Full Code (Latest Code Status on File) Date Activated Date Inactivated Comments 09/18/2021 7:04 PM 09/22/2021 7:46 PM Care Teams Regulatory Services Consultant Relationship Specialty Start Date End Date Anushka Figueredo [address] [place] [id number] PCP - General 10/30/21 Crista Gaines MBBS [address] [place] [address] [place] [address] Consulting Physician Endocrinology 10/09/21
--- OUTSIDE RECORDS SUMMARY | 2025-01-18 09:02 | XMS_ITS | Encounter Summary ---
Author Organization [employer] Address 75 [facility] 7t [place] [address] Care Team Providers Care Clipman Name Role Phone RoxannaAnushka lara Primary Care Provider + [phone] Reason for Visit * Reason Comments Med Refill Encounter Details Date Type Department Care Team ([facility] st Contact Info) Description 12/21/2024 Refill [facility]S [address] [place] [address] Janine Pulido MD 230 [place] [address] Chronic pain of both knees Social History [...] Description 01/22/2025 9:45 AM EDT Office Visit [facility] MEDICINE 230 [place] [address] 02/13/2025 9:00 AM EDT Office Visit [facility] OPTOMETRY [address] [place] [address] Karon Merida, OD 230 [place] [address] documented as of this encounter Visit Diagnoses Diagnosis Chronic pain of both knees documented in this encounter Additional Health Concerns Assessment Noted Time PHQ-9 Depression Total Score: 4 07/24/20 24 9:07 AM EDT documented as of this encounter Care Teams Clipman Relationship Specialty Start Date End Date Anushka Figueredo DO [address] [place] [address] PCP - General Family Medicine 10/03/18 documented as of this encounter
--- OUTSIDE RECORDS SUMMARY | 2025-01-18 09:02 | XMS_ITS | Encounter Summary ---
Author Organization [employer] Address 75 [facility] 7t [place] [address] Care Team Providers Care Dominatrix Name Role Phone Roxannajane Anushka Primary Care Provider + [phone] Encounter Details Date Type Department Care Team ([facility] st Contact Info) Description 01/12/2024 Orders Only [facility] MEDICINE [address] [place] [address] ProviderSandra MD Social History Tobacco Use Types [...] Description 01/22/2025 9:45 AM EDT Office Visit [facility] MEDICINE 230 [place] [address] 02/13/2025 9:00 AM EDT Office Visit [facility] OPTOMETRY [address] [place], [place] [phone] Fuad, Karon, OD [address] [place] [address] documented as of this encounter Procedures Procedure [...] documented as of this encounter Care Teams Dominatrix Relationship Specialty Start Date End Date Anushka Figueredo DO [address] [place] [address] PCP - General Family Medicine 10/03/18 documented as of this encounter
--- OUTSIDE RECORDS SUMMARY | 2025-01-18 09:02 | XMS_ITS | Encounter Summary ---
Author Organization [employer] Address 75 [facility] 7t [place] [address] Care Team Providers Care Research Associate Molecular Biology Name Role Phone RoxannaAnushka lara Primary Care Provider + [phone] Reason for Visit * Reason Comments Med Refill Encounter Details Date Type Department Care Team (Late st Contact Info) Description 03/19/2024 Refill [facility] MEDICINE [address] [place] [address] Janine Pulido MD 230 [place] [address] Chronic right shoulder pain Social History Tobacco [...] Description 01/22/2025 9:45 AM EDT Office Visit [facility] MEDICINE [address] [place] [address] 02/13/2025 9:00 AM EDT Office Visit [facility] OPTOMETRY [address] [place] [address] Fuad, Karon, OD 230 [place] [address] documented as of this encounter Visit Diagnoses Diagnosis Chronic right shoulder pain Pain in joint, shoulder region documented in this encounter Additional Health Concerns Assessment Noted Time PHQ-9 Depression Total Score: 0 12/10/19 23 10:17 AM EST documented as of this encounter Care Teams Research Associate Molecular Biology Relationship Specialty Start Date End Date Anushka Figueredo DO 230 [place] [address] PCP - General Family Medicine 10/03/18 documented as of this encounter
--- OUTSIDE RECORDS SUMMARY | 2025-01-18 09:02 | XMS_ITS | Encounter Summary ---
Author Organization [employer] Address [address] [place] [address] 7t [place] [address] Care Team Providers Care Cigar Making Machine Supervisor Name Role Phone Anushka Figueredo DO Primary Care Provider [phone] Reason for Visit * Reason Onset Date Comments Med Refill 01/16/2025 Encounter Details Date Type Department Care Team (Late st Contact Info) Description 01/16/2025 Refill [facility] MEDICINE [address] [place] [address] Anushka Figueredo DO 230 [place] [address] Chronic pain of both knees Social History [...] Description 01/22/2025 9:45 AM EDT Office Visit [facility] MEDICINE [address] [place] [address] 02/13/2025 9:00 AM EDT Office Visit [facility] OPTOMETRY [address] [place] [address] Karon Merida, OD 230 [place] [address] documented as of this encounter Visit Diagnoses Diagnosis Chronic pain of both knees documented in this encounter Additional Health Concerns Assessment Noted Time PHQ-9 Depression Total Score: 4 07/24/20 24 9:07 AM EDT documented as of this encounter Care Teams Cigar Making Machine Supervisor Relationship Specialty Start Date End Date Anushka Figueredo DO 230 [place] [address] PCP - General Family Medicine 10/03/18 documented as of this encounter
--- OUTSIDE RECORDS SUMMARY | 2025-01-18 09:02 | XMS_ITS | Encounter Summary ---
Author Organization [employer] Address [address] [place] [address] 7t [place] [address] Care Team Providers Care Beading Installer Name Role Phone Anushka Figueredo DO Primary Care Provider [phone] Reason for Visit * Reason Onset Date Comments Durable Medical Equipment 10/24/2024 Encounter Details Date Type Department Care Team ([facility] st Contact Info) Description 10/24/2024 Telephone [facility] MEDICINE [address] [place] [address] Anushka Figueredo DO [address] [place] [address] Durable Medical Equipment Social History Tobacco Use [...] Nebulizer. IF any questions contact pt at [phone] documented in this encounter Plan of Treatment Upcoming Encounters Date Type Department Care Team ([facility] st Contact Info) Description 01/22/2025 9:45 AM EDT Office Visit [facility] MEDICINE [address] [place] [address] 02/13/2025 9:00 AM EDT Office Visit [facility] OPTOMETRY [address] [place] [address] Fuad, Karon, OD [address] [place] [address] documented as of this encounter Visit Diagnoses Not on filedocumented in this encounter Additional Health Concerns Assessment Noted Time PHQ-9 Depression Total Score: 4 07/24/20 24 9:07 AM EDT documented as of this encounter Care Teams Beading Installer Relationship Specialty Start Date End Date Anushka Figueredo DO [address] [place] [address] PCP - General Family Medicine 10/03/18 documented as of this encounter
--- OUTSIDE RECORDS SUMMARY | 2025-01-18 09:02 | XMS_ITS | Encounter Summary ---
Author Organization [employer] Address [address] [facility] 7t [place] [address] Care Team Providers Care Audiovisual Technician Name Role Phone LorenaAnushka mcqueen Primary Care Provider + [phone] Encounter Details Date Type Department Care Team (Latest Contact Info) Description 01/15/2025 Travel Social History Tobacco Use Types Packs/Day [...] 01/22/2025 9:45 AM EDT Office Visit [facility] MEDICINE 230 [place] [address] 02/13/2025 9:00 AM EDT Office Visit [facility] OPTOMETRY [address] [place] [address] Fuad, Karon, OD [address] [place] [address] documented as of this encounter Visit Diagnoses Not on filedocumented in this encounter Additional Health Concerns Assessment Noted Time PHQ-9 Depression Total Score: 4 07/24/20 24 9:07 AM EDT documented as of this encounter Care Teams Audiovisual Technician Relationship Specialty Start Date End Date Anushka Figueredo DO 230 [place] [address] PCP - General Family Medicine 10/03/18 documented as of this encounter
--- OUTSIDE RECORDS SUMMARY | 2025-01-18 09:02 | XMS_ITS | Encounter Summary ---
Author Organization [employer] Address [address] [facility] 7t [place] [address] Care Team Providers Care Review Nurse Name Role Phone Anushka Figueredo DO Primary Care Provider [phone] Encounter Details Date Type Department Care Team ([facility] st Contact Info) Description 12/21/2024 Telephone [facility] MED & PEDS [address] [place], [place] [phone] Anushka Figueredo DO [address] [facility] [place] [address] Social History Tobacco Use Types Packs/Day Years [...] Description 01/22/2025 9:45 AM EDT Office Visit [facility] MEDICINE [address] [place] [address] 02/13/2025 9:00 AM EDT Office Visit [facility] OPTOMETRY [address] [place] [address] Fuad, Karon, OD 230 [place] [address] documented as of this encounter Visit Diagnoses Not on filedocumented in this encounter Additional Health Concerns Assessment Noted Time PHQ-9 Depression Total Score: 4 07/24/20 24 9:07 AM EDT documented as of this encounter Care Teams Review Nurse Relationship Specialty Start Date End Date Anushka Figueredo DO 230 [place] [address] PCP - General Family Medicine 10/03/18 documented as of this encounter
--- OUTSIDE RECORDS SUMMARY | 2025-01-18 09:02 | XMS_ITS | Encounter Summary ---
Author Organization [employer] Address 75 [facility] [address]t [place] [address] Care Team Providers Care Manufacturing Engineer Assembly Name Role Phone LorenaAnushka mcqueen Primary Care Provider + [phone] Reason for Visit * Reason Comments Med Refill Encounter Details Date Type Department Care Team (Late st Contact Info) Description 08/03/2023 Refill [facility] MEDICINE [address] [place] [address] Janine Pulido MD [address] [place] [address] Dry eyes Social History Tobacco Use Types [...] Description 01/22/2025 9:45 AM EDT Office Visit [facility] MEDICINE [address] [place] [address] 02/13/2025 9:00 AM EDT Office Visit [facility] OPTOMETRY [address] [place] [address] Fuad, Karon, OD [address] [place] [address] documented as of this encounter Visit Diagnoses Diagnosis Dry eyes Unspecified tear film insufficiency documented in this encounter Additional Health Concerns Assessment Noted Time PHQ-9 Depression Total Score: 0 12/10/19 23 10:17 AM EST documented as of this encounter Care Teams Manufacturing Engineer Assembly Relationship Specialty Start Date End Date Anushka Figueredo DO [address] [place] [address] PCP - General Family Medicine 10/03/18 documented as of this encounter
--- OUTSIDE RECORDS SUMMARY | 2025-01-18 09:02 | XMS_ITS | Encounter Summary ---
Author Organization [facility] Address [address] [place] [address] [address] [place] [address] Care Team Providers Care Scow Hand Name Role Phone Anushka Figueredo DO Primary Care Provider Encounter Details Date Type Department Care Team (Late st Contact Info) Description 09/10/2022 Telephone [facility] MEDICINE [address] [place] [address] Anushka Figueredo DO 230 [place] [address] Social History Tobacco Use Types Packs/Day Years [...] Office Visit [facility] MEDICINE [address] [place] [address] 02/13/2025 9:00 AM EDT Office Visit [facility] OPTOMETRY [address] [place] [address] Fuad, Karon, OD 230 [place] [address] documented as of this encounter Visit Diagnoses Not on filedocumented in this encounter Care Teams Scow Hand Relationship Specialty Start Date End Date Anushka Figueredo DO [address] [place] [address] PCP - General Family Medicine 10/03/18 documented as of this encounter
--- OUTSIDE RECORDS SUMMARY | 2025-01-18 09:02 | XMS_ITS | Clinical Summary ---
Author Organization [employer] Address [address] [place] [address] 7[address] [place] [address] Care Team Providers Care Braze Operator Name Role Phone RoxannaAnushka lara Primary Care Provider + [phone] Allergies Active Allergy Reactions Criticality Noted Date [...] for muscle spasms. 021 Active nystatin (Mycostatin) 899667 UNIT/GM powder Apply topically every 12 (twelve) [...] 6 HOURS NEEDED FOR PAIN 60 tablet Active senna (Senokot) 8.6 MG tablet TAKE 2 TABLETS ONCE DAILY IN THE MORNING NEEDED FOR CONSTIPATION 180 tablet 3 Active Multiple Vitamins-Minera ls (PreserVision AREDS 2) capsuleIndicati ons:Dry eyes TAKE 1 CAPSULE BY MOUTH TWICE DAILY IN THE MORNING AND IN THE EVENING 180 capsule 3 Active amLODIPine (Norvasc) 10 MG tabletIndicatio ns:Essential hypertension TAKE 1 TABLET BY MOUTH EVERY MORNING 90 tablet 3 Active lisinopril 30 MG tablet TAKE 1 TABLET BY MOUTH EVERY MORNING 90 tablet 3 Active amitriptyline (Elavil) 50 MG tablet TAKE 1 TABLET BY MOUTH AT BEDTIME 30 tablet 5 Active loratadine (Claritin) 10 MG tabletIndicatio ns:Chronic allergic rhinitis TAKE 1 TABLET BY MOUTH EVERY MORNING 30 tablet 5 Active oxyCODONE (Roxicodone) 5 MG immediate release tabletIndicatio ns:Chronic pain of both knees TAKE 1 TABLET BY MOUTH EVERY 6 HOURS NEEDED FOR SEVERE PAIN 112 tablet Active senna (Senokot) 8.6 MG tablet TAKE [...] bedtime. 30 tablet 5 024 2024 Discontinued oxyCODONE (Roxicodone) 5 MG immediate release tabletIndicatio [...] needed for severe pain. 112 tablet 025 2024 Discontinued Active Problems Problem Noted [...] Utox and pill count as expected from [facility] visit 02/01/24, so not performed today Regular [...] pain left shoulder and bilat knees Last [facility] Agreement: 10/16/24, Dr. Figueredo Assessment & Plan (10/16/2024 1:37 PM EST): Timeline: - 10/16/24: [facility] Renewal. Group visit, utox/pill count WNL Assessment [...] Last Assessment & Plan: Patient presented to [facility] on 09/16 with headache, double vision, right side ptosis following a knee replacement surgery on September 09. 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 Transferred to [facility] on 09/19 after not improving with [...] Assessment & Plan: Right knee arthroplasty at [facility] on September 09. Discharged home on [...] Encounters Date Type Department Care Team Description 01/16/2025 Refill [facility] [address] [place] [address] Anushka Figueredo DO Chronic pain of both knees 01/16/2025 Refill [facility] [address] [place] [address] Anushka Figueredo DO Chronic pain of both knees 01/15/2025 Travel 01/15/2025 Telephone [facility] [address] [place] [address] Anushka Figueredo DO Appointment Request 01/02/2025 Orders Only [facility] External Provider, [facility] 12/30/2024 Refill [facility] [address] [place] [address] Anushka Figueredo DO Chronic allergic rhinitis 12/26/2024 Telephone [facility] [address] [place] [address] Anushka Figueredo DO Reschedule Chronic Pain group 12/26/2024 Refill [facility] [address] [place] [address] Anushka Figueredo DO Dry eyes; Essential hypertension 12/21/2024 Refill [facility] [address] [place] [address] Janine Pulido MD Chronic pain of both knees 12/21/2024 Telephone [facility] [address] [place] [address] Anushka Figueredo DO 12/21/2024 Refill [facility] [address] [place] [address] Anushka Figueredo DO Chronic pain of both knees 12/18/2024 Travel 12/14/2024 Refill [facility] [address] [place] [address] Migue Craig MD 11/30/2024 Orders Only [facility] [address] [place] [address] Colleen Paulson MD 11/23/2024 Refill [facility] [address] [place] [address] Anushka Figueredo DO 11/21/2024 Telephone [facility] [address] [place] [address] Anushka Figueredo DO Results 11/20/2024 Refill [facility] [address] [place] [address] Anushka Figueredo DO Chronic pain of both knees 11/11/2024 Orders Only [facility] [address] [place] [address] Anushka Figueredo DO 10/31/2024 9:00 AM EST Office Visit [facility] [address] [place] [address] Anushka Figueredo DO Essential hypertension (Primary Dx); [...] for malignant neoplasm of colon 10/31/2024 Telephone [facility] [address] [place] [address] Anushka Figueredo DO 10/31/2024 Travel 10/24/2024 Telephone [facility] [address] [place], [place] [phone] Anushka Figueredo DO Durable Medical Equipment 10/23/2024 Refill [facility] [address] [place], [place] [phone] Anushka Figueredo DO Chronic pain of both knees from Last 3 Months Immunizations Name Administration Dates Next Due Moderna Covid-19 Vaccine 12+ 11/30/2021,02/22/20,01/24/2021 Moderna Covid-19 Vaccine 6+ Bivalent 09/21/2022 Family [...] Description 01/22/2025 9:45 AM EDT Office Visit [facility] [address] [place] [address] 02/13/2025 9:00 AM EDT Office Visit [facility] [address] [place] [address] Fuad, Karon, OD [address] [place] [address] Health Maintenance Due Date Last Done Comments [...] Colonoscopy 11/07/2024 11/07/2014 Colorectal Cancer Screening 11/07/2024 Depression Screening 07/24/2025 07/24/2024, 07/24/20 24 SDOH [...] Procedure Name Priority Date/Time Associated Diagnosis Comments MR BRAIN W AND WO CONTRAST Routine 01/02/2025 8:17 AM EDT US ABDOMEN COMPLETE Routine 11/30/2024 7 :44 AM EST Fatty liver LIPID PANEL, STANDARD Routine 02/18/2024 9:29 AM EDT Essential hypertension PANORAMIC RADIOGRAPHIC IMAGE Routine 07/17/2021 12:00 AM EDT PERIODIC ORAL EVALUATION - ESTABLISHED PATIENT Routine 07/17/2021 12:00 AM EDT ZZZ HISTORICAL VITAMIN D 25-OH TOTAL Routine 01/19/2021 8:25 AM EDT HM COLONOSCOPY Routine 11/07/2014 3:46 PM EST from Last 3 Months or Most Recently Relevant to Health Maintenance Results * Mr Brain w/ and w/o Contrast (01/02/2025 8:17 AM EDT) Anatomical Region Laterality Modality Brain Magnetic Resonan ce 01/02/2025 8:17 AM EDT Narrative 01/02/2025 10:37 AM EDT ? [facility] ?[address] ?[place] [address] ? Magnetic Resonance Report ? Signed ? Patient: Tran Azeb,Gretel ?MR#: ?? [id number] ? : 1960 ?Acct:[id number] ? Age/Sex: 64 / F ?ADM Date: 01/02/25 ? Loc: HO.MRI ? Attending Dr: Albina Barker MD ? Ordering Physician: Albina Barker MD ?? Date of Service: 01/02/25 ?? Procedure(s): MR head/brain wo/w con ?? Accession Number(s): [id number] ? cc: Anushka Figueredo DO; Albina Barker MD ? EXAMINATION: ?? MR BRAIN PITUITARY PROTOCOL WITHOUT AND WITH CONTRAST ? CLINICAL INFORMATION: ?? Disorders of the pituitary gland ? COMPARISON: ?? August 05, 2022 ? TECHNIQUE: ?? Multiplanar, multisequence MRI of the brain/ pituitary protocol was ?? obtained before and after the intravenous administration of 5 mL ?? Gadavist without reported immediate complications. ? FINDINGS: ?? Transsphenoidal approach treatment changes. ?? There is a 15 x 20 x 13 mm enhancing the lesion within the sella torsi,. ?? There is a 2 mm deviation to the left of the pituitary stalk. ?? The pituitary stalk measures 15 mm in maximal thickness. ?? The optic chiasm is intact and normal. ?? The flow-void signal within the cavernous and supraclinoid segments of ?? the ICA is normal ?? The Tiffanie scabies demonstrated no signal abnormality or enhancing ?? lesion. ?? The intracanalicular segments of the optic nerves demonstrated no ?? signal abnormality or enhancing lesion. ?? The inferior orbital fissure and the foramen rotundum demonstrated no ?? signal abnormality or enhancing lesion. ?? No enhancing mass at the cavernous sinuses. ?? No gross restricted diffusion within the intrasellar lesion. ? No restricted diffusion within the brain parenchyma. ?? Escobar-white matter differentiation is normal. ?? No acute intracranial hemorrhage, mass effect midline shift ?? hydrocephalus or herniation. ?? The craniocervical junction is intact and normal. ? MR/MR head/brain wo/w con ?? IMPRESSION: ?? 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 ?? Posttreatment changes, sphenoid sinus. ?? Tethered to the left pituitary stalk. ? Electronically signed by: ??Brandon Kan MD ??01/02/2025 10:34 AM ?? EDT RP ? Dictated By: ?Brandon Espino MD ? Signed By: ?<Electronically signed by Brandon Pan MD in OV> ? 01/02/25 1034 ? DD/ 6 ? TD/TT: 01/02/25916 ? Wardrobe Manager: ? Procedure Note Aravind Balbuena - 01/02/[address] [address] Magnetic Resonance Report Signed Patient: Garrick Kendall#: [id number] : 8Acct:[id number] Age/Sex: 64 / FADM Date: 01/02/25 Loc: HO.MRI Attending Dr: Albina Barker MD Ordering Physician: Albina Barker MD Date of Service: 01/02/25 Procedure(s): MR head/brain wo/w con Accession Number(s): [id number] cc: Anushka Figueredo DO; Albina Barker MD EXAMINATION: MR BRAIN PITUITARY PROTOCOL WITHOUT AND WITH CONTRAST CLINICAL INFORMATION: Disorders of the pituitary gland COMPARISON: August 05, 2022 TECHNIQUE: Multiplanar, multisequence MRI of the brain/ pituitary protocol was obtained before and after the intravenous administration of 5 mL Gadavist without reported immediate complications. FINDINGS: Transsphenoidal approach treatment changes. There is a 15 x 20 x 13 mm enhancing the lesion within the sella torsi,. There is a 2 mm deviation to the left of the pituitary stalk. The pituitary stalk measures 15 mm in maximal thickness. The optic chiasm is intact and normal. The flow-void signal within the cavernous and supraclinoid segments of the ICA is normal The Tiffanie scabies demonstrated no signal abnormality or enhancing lesion. The intracanalicular segments of the optic nerves demonstrated no signal abnormality or enhancing lesion. The inferior orbital fissure and the foramen rotundum demonstrated no signal abnormality or enhancing lesion. No enhancing mass at the cavernous sinuses. No gross restricted diffusion within the intrasellar lesion. No restricted diffusion within the brain parenchyma. Escobar-white matter differentiation is normal. No acute intracranial hemorrhage, mass effect midline shift hydrocephalus or herniation. The craniocervical junction is intact and normal. 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 Electronically signed by: Brandon Kan MD 01/02/2025 10:34 AM EDT Dictated By: Brandon Espino MD Signed By: <Electronically signed by Brandon Pan MDin OV> 01/02/25 1034 DD/ 0817 TD/TT: 01/02/25 0917 Wardrobe Manager: [facility] External Provider IMG MRI PROCEDURES Edited Result - Final * US Abdomen Complete (11/30/2024 7:44 AM EST) Anatomical Region Laterality Modality Abdomen Ultrasound 11/30/2024 7:44 AM EST Narrative 11/30/2024 8:25 AM EST ? [facility] ?[address] ?[place] [address] ? Ultrasound Report ? Signed ? Patient: Tran Azeb,Gretel ?MR#: ?? [id number] ? : 1960 ?Acct:[id number] ? Age/Sex: 64 / F ?ADM Date: 11/30/24 ? Loc: HO.US ? Attending Dr: Anushka Figueredo DO ? Ordering Physician: Anushka Figueredo DO ?? Date of Service: 11/30/24 ?? Procedure(s): US abdomen complete ?? Accession Number(s): [id number] ? cc: Anushka Figueredo DO ? EXAMINATION: [...] ??Maulik Mcknight MD ??11/30/2024 08:22 AM EST ? Dictated By: ?Maulik Mcknight MD ? Signed By: ?<Electronically signed by Maulik Mcknight MD in OV> ?11/30/24 0822 ? DD/ 0744 ? TD/TT: 11/30/24 0805 ? Wardrobe Manager: ? Procedure Note Donotuseinterpreter, Image - 11/30/2024 [place] [address] Ultrasound Report Signed Patient: Garrick Kendall#: [id number] : 8Acct:[id number] Age/Sex: 64 / FADM Date: 11/30/24 Loc: HO.US Attending Dr: Anushka Figueredo DO Ordering Physician: Anushka Figueredo DO Date of Service: 11/30/24 Procedure(s): US abdomen complete Accession Number(s): [id number] cc: Anushka Figueredo DO EXAMINATION: US ABDOMEN [...] 11/30/24 0822 DD/ 0744 TD/TT: 11/30/24 0805 Wardrobe Manager: us Anushka Figueredo DO IMG US PROCEDURES Final Resu lt * (ABNORMAL) Lipid Panel, Standard (02/18/2024 9:29 AM EDT) Triglycerides 72 <150 mg/dL [facility] Comment:Desirable Triglyceri de: less than 150 mg/dLBorderline High Triglyceride 150-199 mg/dLHigh Triglyceride: 200-499 mg/dLVery High Triglyceride: greater than or equal to 5OO mg/dL Cholesterol 186 <200 mg/dL [facility] Comment:Desirable Cholestero l: less than 200 mg/dLBorderline High Cholesterol: 200-239 mg/dLHigh Cholesterol: greater than 239 mg/dL LDL Cholesterol Calculated 101(H) <100 mg/dL [facility] Comment:Desirable LDL: less than 100 mg/dLNear Optimal/Above Optimal LDL: 110- 129 mg/dLBorderline High LDL: 130-159 mg/dLHigh LDL: 160-189 mg/dLVery High LDL: greater than or equal to 190 mg/dL HDL Cholesterol 71 >40 mg/dL [facility] Comment:Desirable HDL: great er than 40 mg/dL Note: This HDL assay may give artificially low results in patients with liver disease. Blood Venous blood specimen / Unknown 02/18/2024 9:29 AM EDT 02/18/2024 9:29 AM EDT Anushka Carrillorichar DO LAB BLOOD ORDERABLES Final R esult [facility] [address] [place] [phone] * (ABNORMAL) Vitamin D 25-OH Total (01/19/2021 8:25 AM EDT) [facility] Vitamin D 25-OH Total 20.2 >30 ng/mL [facility] Comment: Health Based Reference [...] LC-MS/MS. Hepatitis B Surface Antibody NONREACTIVE Nonreactive [facility] Comment:Nonreactive: < 8.00 mIU/mL Alanine Aminotransferase 15 0 - 31 U/L [facility] Albumin Level 3.8 3.5 - 5.0 g/dL [facility] Alkaline Phosphatase 76 39 - 117 U/L [facility] Aspartate Amino Transferase 21 5 - 31 U/L [facility] Bilirubin Direct 0.2 0.0 - 0.5 mg/dL [facility] Bilirubin Total 0.6 0.0 - 1.0 mg/dL [facility] Total Protein 7.0 6.5 - 8.0 g/dL [facility] HIV AB/AG Nonreactive Nonreactive [...] detection of this assay. ?? The [employer] Large Sheetfed Press Operator HIV Ag/Ab Combo assay result and supplemental assay results should be interpreted in conjunction with the patient's clinical presentation, history and other laboratory results. ??If the results are inconsistent with clinical evidence, additional testing is suggested to confirm the result. Anion Gap 11(L) 12 - 20 [facility] Comment: Blood Urea Nitrogen 16 9 - 16 mg/dL [facility] Calcium 9.3 8.4 - 10.2 mg/dL [facility] Carbon Dioxide 29 22 - 29 mmol/L [facility] Chloride 105 96 - 108 mmol/L [facility] Creatinine, Serum 0.68 0.5 - 1.4 mg/dL [facility] Estimated Glomerular Filt Rate >60 [facility] Comment: NOTE: ??For -[place] individuals, multiply the result ?by 1.210. ?? Chronic Kidney Disease: ??Estimated GFR < 60 mL/min/1.73m2 Severe Kidney Disease: ??Estimated GFR < 15 mL/min/1.73m2 Glucose Random 87 60 - 115 mg/dL [facility] Potassium 4.4 3.3 - 5.1 mmol/L [facility] Sodium 141 135 - 145 mmol/L [facility] Hepatitis B Surface Antigen Negative Negative [facility] Cholesterol 161 mg/dL [facility] Comment: Desirable Cholesterol: ?less than 200 mg/dL Borderline High Cholesterol: ??200-239 mg/dL High Cholesterol: ? greater than 239 mg/dL HDL Cholesterol 69 mg/dL [facility] Comment: Desirable HDL: ??greater than 40 mg/dL ?? Note: This HDL assay may give artificially ? low results in patients with liver disease. LDL Cholesterol Calculated 82 mg/dl [facility] Comment: Desirable LDL: ? less than 100 mg/dL Near Optimal/Above Optimal LDL: ??110-129 mg/dL Borderline High LDL: ? 130-159 mg/dL High LDL: ?160-189 mg/dL Very High LDL: ? greater than or equal to ?190 mg/dL Triglycerides 51 mg/dL [facility] Comment: Desirable Triglyceride: ? less than 150 mg/dL Borderline High Triglyceride ??150-199 mg/dL High Triglyceride: ?200-499 mg/dL Very High Triglyceride: ? greater than or equal to ? 5OO mg/dL CT PCR NOT DETECTED Not Detect. [facility] Comment: A not detected test result [...] NG PCR NOT DETECTED Not Detect. [facility] Comment: A not detected test result [...] Microalbum/Creatin ine Ratio Ur 4.0 ug/mg cr [facility] Comment: ?Albumin/Creatinine Ratio Reference Ranges: [...] liver disease. LDL Cholesterol Calculated 82 mg/dl [facility] Comment: Desirable LDL: ? [...] Alanine Aminotransferase 15 0 - 31 U/L [facility] Albumin Level 3.8 3.5 - 5.0 g/dL [facility] Alkaline Phosphatase 76 39 - 117 U/L [facility] Aspartate Amino Transferase 21 5 - 31 U/L [facility] Bilirubin Direct 0.2 0.0 - 0.5 mg/dL [facility] Bilirubin Total 0.6 0.0 - 1.0 mg/dL [facility] Total Protein 7.0 6.5 - 8.0 g/dL [facility] Hematocrit 42.0 37 - 47 % [facility] Hemoglobin 12.8 12.0 - 16.0 g/dl [facility] Mean Corpuscular Hemoglobin 27.6 27.0 - 33.0 pg [facility] Mean Corpuscular HGB Conc 30.5(L) 31.0 - 35.0 g/dl [facility] Mean Corpuscular Volume 90.5 80 - 98 fL [facility] Mean Platelet Volume 11.0 9.4 - 12.3 fL [facility] NRBC Abs Auto 0.000 0.0 - 0.012 X10*3/uL [facility] NRBC Pct Auto 0.0 0.0 - 0.2 /100WBC [facility] Platelet Count 190 160 - 400 X10*3/uL [facility] Red Blood Count 4.64 4.20 - 5.50 X10*6/uL [facility] Red Cell Distribution Width 14.1 11.0 - 16.0 % [facility] White Blood Count 4.9 4.8 - 10.8 X10*3/uL [facility] Anion Gap 11(L) 12 - 20 [facility] Comment: Blood Urea Nitrogen 16 9 - 16 mg/dL [facility] Calcium 9.3 8.4 - 10.2 mg/dL [facility] Carbon Dioxide 29 22 - 29 mmol/L [facility] Chloride 105 96 - 108 mmol/L [facility] Creatinine, Serum 0.68 0.5 - 1.4 mg/dL [facility] Estimated Glomerular Filt Rate >60 [facility] Comment: NOTE: ??For -[place] individuals, multiply the result ?by . ?? [...] ORDERABLE LAB S Final Result [facility] [address] * Hm Colonoscopy (11/07/2014 3:46 PM EST) Historical Provider HEALTH MAINTENANCE Final Result from Last 3 Months or Most Recently Relevant to Health Maintenance Insurance [facility] Care Teams Braze Operator Relationship Specialty Start Date End Date Anushka Figueredo DO [address] [place] [address] PCP - General Family Medicine 10/03/18
--- OUTSIDE RECORDS SUMMARY | 2025-01-18 09:02 | XMS_ITS | Encounter Summary ---
Author Organization [employer] Address [address] [place] [address] [address] [place] [address] Care Team Providers Care Trekking Guide Name Role Phone Anushka Figueredo DO Primary Care Provider [phone] Reason for Visit * Reason Onset Date Comments Appointment Request 01/15/2025 Encounter Details Date Type Department Care Team ([facility] st Contact Info) Description 01/15/[address] [facility] [address] [place] [address] Anushka Figueredo DO [address] [place] [address] Appointment Request Social History Tobacco Use Types [...] encounter Miscellaneous Notes * Telephone Encounter - Corinne Canales [place] - 01/15/2025 12:04 PM EDT Call pt reschedule 12/25/2024 appt for [facility]. Pt agree to be schedule 01/22/2025 at 9:45am. * Telephone Encounter - Raymundo Durant - 01/15/2025 10:48 AM EDT Tc from pt requesting to R/s Appt from 12/25/24. Contact pt at [phone] documented in this encounter Plan of Treatment Upcoming Encounters Date Type Department Care Team (Late st Contact Info) Description 01/22/2025 9:45 AM EDT Office Visit [facility] MEDICINE [address] [place] [address] 02/13/2025 9:00 AM EDT Office Visit [facility]OMETRY [address] [place], [place] [phone] Fuad, Karon, OD [address] [place] [address] documented as of this encounter Visit Diagnoses Not on filedocumented in this encounter Additional Health Concerns Assessment Noted Time PHQ-9 Depression Total Score: 4 07/24/20 24 9:07 AM EDT documented as of this encounter Care Teams Trekking Guide Relationship Specialty Start Date End Date Anushka Figueredo DO [address] [place] [address] PCP - General Family Medicine 10/03/18 documented as of this encounter
--- OUTSIDE RECORDS SUMMARY | 2025-01-18 09:02 | XMS_ITS | Encounter Summary ---
Author Organization [employer] Address [address] [place] [address] [address] [place] [address] Care Team Providers Care Wrecking Crane Engine Operator Name Role Phone LorenaAnushka mcqueen Primary Care Provider [phone] Reason for Visit * Reason Onset Date Comments Med Refill 09/19/2024 Encounter Details Date Type Department Care Team ([facility] st Contact Info) Description 09/19/2024 Refill [facility] [address] [place] [address] Janine Ley MD [address] [place] [address] Social History Tobacco Use Types Packs/Day Years [...] Description 01/22/2025 9:45 AM EDT Office Visit [facility] [address] [place] [address] 02/13/2025 9:00 AM EDT Office Visit [facility] [address] [place] [address] Karon Merida, OD [address] [place] [address] documented as of this encounter Visit Diagnoses Not on filedocumented in this encounter Additional Health Concerns Assessment Noted Time PHQ-9 Depression Total Score: 4 07/24/20 24 9:07 AM EDT documented as of this encounter Care Teams Wrecking Crane Engine Operator Relationship Specialty Start Date End Date Anushka Figueredo DO [address] [place] [address] PCP - General Family Medicine 10/03/18 documented as of this encounter
--- OUTSIDE RECORDS SUMMARY | 2025-01-18 09:02 | XMS_ITS | Encounter Summary ---
Author Organization [employer] Address [address] [facility] [address] [place] [address] Care Team Providers Care Color Maker Name Role Phone Anushka Figueredo DO Primary Care Provider [phone] Reason for Visit * Reason Onset Date Comments Appointment Request 09/11/2024 Encounter Details Date Type Department Care Team ([facility] st Contact Info) Description 09/11/2024 Telephone [facility] [place] MEDICINE [address] [place] [address] Anushka Figueredo DO [address] [place] [address] Appointment Request Social History Tobacco Use Types [...] r/s apt for 09/11. Contact pt at [phone] documented in this encounter Plan of Treatment Upcoming Encounters Date Type Department Care Team ([facility] st Contact Info) Description 01/22/2025 9:45 AM EDT Office Visit [facility] MEDICINE [address] [place] [address] 02/13/2025 9:00 AM EDT Office Visit [facility] OPTOMETRY [address] [place] [address] Fuad, Karon, OD [address] [place] [address] documented as of this encounter Visit Diagnoses Not on filedocumented in this encounter Additional Health Concerns Assessment Noted Time PHQ-9 Depression Total Score: 4 07/24/20 24 9:07 AM EDT documented as of this encounter Care Teams Color Maker Relationship Specialty Start Date End Date Anushka Figueredo DO [address] [place] [address] PCP - General Family Medicine 10/03/18 documented as of this encounter
--- OUTSIDE RECORDS SUMMARY | 2025-01-18 09:02 | XMS_ITS | Encounter Summary ---
Author Organization [employer] Address [address] [place] [address] 7t [place] [address] Care Team Providers Care Controller Mechanic Name Role Phone Anushka Figueredo DO Primary Care Provider [phone] Reason for Visit * Reason Onset Date Comments Med Refill 09/25/2024 Encounter Details Date Type Department Care Team ([facility] st Contact Info) Description 09/25/2024 Refill [facility] MEDICINE [address] [place] [address] Anushka Figueredo DO [address] [place] [address] Chronic pain of both knees Social History [...] Description 01/22/2025 9:45 AM EDT Office Visit [facility] MEDICINE [address] [place] [address] 02/13/2025 9:00 AM EDT Office Visit [facility] OPTOMETRY [address] [place] [address] Karon Merida, OD [address] [place] [address] documented as of this encounter Visit Diagnoses Diagnosis Chronic pain of both knees documented in this encounter Additional Health Concerns Assessment Noted Time PHQ-9 Depression Total Score: 4 07/24/20 24 9:07 AM EDT documented as of this encounter Care Teams Controller Mechanic Relationship Specialty Start Date End Date Anushka Figueredo DO [address] [place] [address] PCP - General Family Medicine 10/03/18 documented as of this encounter
--- OUTSIDE RECORDS SUMMARY | 2025-01-18 09:02 | XMS_ITS | Encounter Summary ---
Author Organization [employer] Address [address] [facility] 7t [place] [address] Care Team Providers Care Master Yacht Name Role Phone Anushka Figueredo DO Primary Care Provider [phone] Reason for Visit * Reason Comments Med Refill Encounter Details Date Type Department Care Team (Late st Contact Info) Description 01/16/2025 Refill [facility] MEDICINE [address] [place] [address] Anushka Figueredo DO 230 [place] [address] Chronic pain of both knees Social History [...] Description 01/22/2025 9:45 AM EDT Office Visit [facility] MEDICINE [address] [place] [address] 02/13/2025 9:00 AM EDT Office Visit [facility] OPTOMETRY [address] [place] [address] Karon Merida, OD [address] [place] [address] documented as of this encounter Visit Diagnoses Diagnosis Chronic pain of both knees documented in this encounter Additional Health Concerns Assessment Noted Time PHQ-9 Depression Total Score: 4 07/24/20 24 9:07 AM EDT documented as of this encounter Care Teams Master Yacht Relationship Specialty Start Date End Date Anushka Figueredo DO [address] [place] [address] PCP - General Family Medicine 10/03/18 documented as of this encounter
--- OUTSIDE RECORDS SUMMARY | 2025-01-18 09:02 | XMS_ITS | Encounter Summary ---
Author Organization [facility] Address [address] [place] [address] Care Team Providers Care Croze Cutter Helper Name Role Phone Crista Gaines Unavailable [phone] Anushka Figueredo Primary Care Provider [phone] Encounter Details Date Type Department Care Team (Late st Contact Info) Description 02/15/2022 Orders Only [facility] Department of Neurosurgery [address] [place] [address] Ej Badillo PA-C Pituitary tumor (Primary Dx) [...] system documented in this encounter Care Teams Croze Cutter Helper Relationship Specialty Start Date End Date Anushka Figueredo [address] [place] [phone] PCP - General 10/30/21 Crista Gaines MBBS [address] [place] [address] [place] [address] Consulting Physician Endocrinology 10/09/21 documented as of this encounter
--- OUTSIDE RECORDS SUMMARY | 2025-01-18 09:02 | XMS_ITS | Encounter Summary ---
Author Organization [employer] Address [address] [facility] 7t [place] [address] Care Team Providers Care Automotive Engineering Teacher Name Role Phone Anushka Figueredo DO Primary Care Provider [phone] Reason for Visit * Reason Comments Med Refill Encounter Details Date Type Department Care Team (Late st Contact Info) Description 08/04/2023 Refill [facility] MEDICINE [address] [place] [address] Anushka Figueredo DO [address] [place] [address] Urinary incontinence, unspecified type Social History Tobacco [...] Description 01/22/2025 9:45 AM EDT Office Visit [facility] MEDICINE [address] [place] [address] 02/13/2025 9:00 AM EDT Office Visit [facility] OPTOMETRY [address] [place] [address] Fuad, Karon, OD [address] [place] [address] documented as of this encounter Visit Diagnoses Diagnosis Urinary incontinence, unspecified type documented in this encounter Additional Health Concerns Assessment Noted Time PHQ-9 Depression Total Score: 0 12/10/19 23 10:17 AM EST documented as of this encounter Care Teams Automotive Engineering Teacher Relationship Specialty Start Date End Date Anushka Figueredo DO [address] [place] [address] PCP - General Family Medicine 10/03/18 documented as of this encounter
--- OUTSIDE RECORDS SUMMARY | 2025-01-18 09:02 | XMS_ITS | Data Portability ---
Author Organization [employer] Address [address] [place] [phone] Care Team Providers Care Family Therapist Name Role Phone HIM CCA OTHER Assessment No assessment recorded. Plan of Treatment Reminders Order Date Submit Date Provider Last Modified By Organization Details Last Modified Time Details Appointments None recorded. Lab None recorded. Referral None recorded. Procedures None recorded. Surgeries None recorded. Imaging None recorded. Medication Orders ketorolac 30 mg/mL injection solution 2023 024 [facility], [address] [place] [address], [id number], 20:38:17 Patient TargetsNo targets recorded. Patient InstructionsNo [...] Updated DateTime 4 99.1 [degF] 19 /min 827564. 792 g 154.94 cm 65 /min 97 [...] SNOMED-CT Code Diagnosis ICD10 Code Diagnosis Note [id number] Aung Ingram MD Main - [address] [phone] 09/14/2024 16:41:03 09/14/2024 21:58:24 Pain in right thumb [id number] M79.644 As noted, we were called to see this patient regarding concerns of pain in right thumb and headache. Evaluation in the field was performed by my employment officer colleague, as noted above, I provided real-time direction and supervisio n for this visit. The evaluation revealed chronic headache (more than three years per employment officer) with pain to the right thumb. Thumb [...] Mata Member ID Guarantor Name 09/14/2024 1 [facility] - DOS ON OR AFTER 2023 - DUAL ELIGIBLE - ALF OPTIONS AND ONE CARE (MEDICARE REPLACEMENT/ADV ANTAGE - HMO) Gretel Tarn Azeb [id number] Gretel Tran Azeb Notes Date Note Type [...] .................. .................. .................. .................. .................. .................. ............... Fruit Picker Note From Rigo Stauffer: Pt chief complaint today of pain located in her right hand where her thumb meds her palm. Pt states that this pain has been going on for quite some time however she is able to state that the pain has entered a more severe sense in the last week before her [facility] appointment today. To has a history [...] mostly located in the increase with movement. [facility] Aung Ingram consultedPt given 15 mg Im of ketorlac into the left deltoid. Pt ignored to seek a further consultation with her pcp as early as possible. Pt educated on red flag S&S and informed to call emergency services if any present. .................. .................. .................. .................. .................. .................. .................. ............... [facility] Consulted: Aung Ingram .................. .................. .................. .................. .................. .................. .................. ............... Disposition: Fulfilled Aung Ingram MD [address] [facility],[address], [place], [phone], [employer] [facility] 09/14/2024 20:38:30 OBGyn Episode No OBEpisode recorded.
--- OUTSIDE RECORDS SUMMARY | 2025-01-18 09:02 | XMS_ITS | Encounter Summary ---
Author Organization [employer] Address [address] [facility] 7t [place] [address] Care Team Providers Care Operations/Dispatch Name Role Phone Anushka Figueredo DO Primary Care Provider [phone] Reason for Visit * Reason Comments Med Refill Encounter Details Date Type Department Care Team ([facility] st Contact Info) Description 09/18/2024 Refill [facility] MED & PEDS [address] [place] [address] Anushka Figueredo DO [address] [facility] [place] [address] Chronic pain of both knees Social History [...] Description 01/22/2025 9:45 AM EDT Office Visit [facility] MEDICINE [address] [place] [address] 02/13/2025 9:00 AM EDT Office Visit [facility] OPTOMETRY [address] [place] [address] Karon Merida, OD [address] [place] [address] documented as of this encounter Visit Diagnoses Diagnosis Chronic pain of both knees documented in this encounter Additional Health Concerns Assessment Noted Time PHQ-9 Depression Total Score: 4 07/24/20 24 9:07 AM EDT documented as of this encounter Care Teams Operations/Dispatch Relationship Specialty Start Date End Date Anushka Figueredo DO [address] [place] [address] PCP - General Family Medicine 10/03/18 documented as of this encounter
--- OUTSIDE RECORDS SUMMARY | 2025-01-18 09:02 | XMS_ITS | Encounter Summary ---
Author Organization [employer] Address [address] [place] [address] 7t [place] [address] Care Team Providers Care Carbon Grinder Name Role Phone Anushka Figueredo DO Primary Care Provider [phone] Reason for Visit * Reason Onset Date Comments Nurse Triage 08/14/2024 Encounter Details Date Type Department Care Team ([facility] st Contact Info) Description 08/14/2024 Telephone [facility] MEDICINE [address] [place] [address] Anushka Figueredo DO [address] [place] [address] Nurse Triage Social History Tobacco Use Types [...] Description 01/22/2025 9:45 AM EDT Office Visit [facility] MEDICINE [address] [place] [address] 02/13/2025 9:00 AM EDT Office Visit [facility] OPTOMETRY [address] [place] [address] Karon Merida, OD [address] [place] [address] documented as of this encounter Visit Diagnoses Not on filedocumented in this encounter Additional Health Concerns Assessment Noted Time PHQ-9 Depression Total Score: 4 07/24/20 24 9:07 AM EDT documented as of this encounter Care Teams Carbon Grinder Relationship Specialty Start Date End Date Anushka Figueredo DO [address] [place] [address] PCP - General Family Medicine 10/03/18 documented as of this encounter
--- OUTSIDE RECORDS SUMMARY | 2025-01-18 09:03 | XMS_ITS | Encounter Summary ---
Author Organization [facility] Address [address] [place] [address] Care Team Providers Care Adjunct Instructor Of Women'S Studies Name Role Phone Crista Gaines Unavailable [phone] Anushka Figueredo Primary Care Provider [phone] Reason for Referral * MRI/CAT/PET Scan (Routine) - Closed Specialty Diagnoses / Procedures Referred By Kamilah marcial Referred To Contact Diagnoses Benign neoplasm of pituitary gland (HCC) Procedures MRI brain W WO contrast Ej Badillo PA-C Other Referral ID Status Reason Start Date Expiration Date Visits Requested Visits Authorized [id number] Closed Patient Preference 03/03/2022 07/03/2022 1 1 Encounter Details Date Type Department Care Team (Late st Contact Info) Description 12/07/2021 Orders Only [facility] Department of Neurosurgery [address] [place] [address] Ej Badillo PA-C Benign neoplasm of pituitary [...] (pouch) documented in this encounter Care Teams Adjunct Instructor Of Women'S Studies Relationship Specialty Start Date End Date Anushka Figueredo [address] [place] [phone] PCP - General 10/30/21 Crista Gaines MBBS [address] [place] [address] [place] [address] Consulting Physician Endocrinology 10/09/21 documented as of this encounter
--- OUTSIDE RECORDS SUMMARY | 2025-01-18 09:03 | XMS_ITS | Encounter Summary ---
Author Organization [employer] Address [address] [place] [address] [address] [address] Care Team Providers Care Cleaner Wall Name Role Phone Anushka Figueredo DO Primary Care Provider [phone] Reason for Visit * Reason Onset Date Comments Appointment Request 04/11/2023 Encounter Details Date Type Department Care Team ([facility] st Contact Info) Description 04/11/2023 Telephone [facility] MEDICINE [address] [place] [address] Anushka Figueredo DO [address] [place] [address] Appointment Request Social History Tobacco Use Types [...] OV with provider. Please contact pt at [phone] documented in this encounter Plan of Treatment Upcoming Encounters Date Type Department Care Team (Late st Contact Info) Description 01/22/2025 9:45 AM EDT Office Visit [facility] MEDICINE [address] [place] [address] 02/13/2025 9:00 AM EDT Office Visit [facility] OPTOMETRY [address] [place] [address] Fuad, Karon, OD [address] [place] [address] documented as of this encounter Visit Diagnoses Not on filedocumented in this encounter Additional Health Concerns Assessment Noted Time PHQ-9 Depression Total Score: 0 12/10/19 23 10:17 AM EST documented as of this encounter Care Teams Cleaner Wall Relationship Specialty Start Date End Date Anushka Figueredo DO [address] [place] [address] PCP - General Family Medicine 10/03/18 documented as of this encounter
--- OUTSIDE RECORDS SUMMARY | 2025-01-18 09:03 | XMS_ITS | Encounter Summary ---
Author Organization [facility] Address [address] [place] [address] Care Team Providers Care Knitting Machine Tender Name Role Phone Pcp, Sara MD Primary Care Provider Crista Hernandez Unavailable Anushka Figueredo Primary Care Provider [phone] Encounter Details Date Type Department Care Team (Late st Contact Info) Description 10/29/2021 Orders Only [facility] Department of Neurosurgery [address] [place] [address] Ratna Gill PA-C [address] [facility] [place] [address] Social History Tobacco Use Types Packs/Day Years [...] on filedocumented in this encounter Care Teams Knitting Machine Tender Relationship Specialty Start Date End Date PcpSara MD [address] [place] [address] PCP - General Internal Medicine 09/18/21 10/29/21 Anushka Figueredo [address] [place] [phone] PCP - General 10/30/21 Crista Gaines MBBS [address] [place] [address] [facility] [place] [address] Consulting Physician Endocrinology 10/09/21 documented as of this encounter
== END 2025-01-18 08:40 | disposition home or self-care (01) ==
LOC: HO.XRAY 08:39
PROVIDERS: PCP Family Medicine; Visit Provider Family Medicine
DX: R13.10 Dysphagia, unspecified (principal)
CPT/HCPCS: 74220

== ENCOUNTER → 2025-01-18 08:41 | Outpatient (BNV) | payer OTHER, SELFPAY | PROVIDERS: PCP Family Medicine; Visit Provider Radiology Diagnostic Radiology | DX: R13.10 Dysphagia, unspecified (principal); K21.9 Gastro-esophageal reflux disease without esophagitis; K44.9 Diaphragmatic hernia without obstruction or gangrene | CPT/HCPCS: 74246 ==

== ENCOUNTER 2025-02-22 07:40 | Outpatient (REF) | payer OTHER, SELFPAY ==
--- NOTE | ~2025-02-22 | XR_ITS ---
CLINICAL HISTORY: CERVICOGENIC HEADACHES --- Additional Notes or Special Instructions: WO Exam: AP, lateral, and open-mouth odontoid views of the cervical spine. Comparison: None. Findings: There is straightening of the normal cervical lordosis. No fracture or focal bony malalignment is identified. Avef-gn-wjtasckl multilevel degenerative disc disease and degenerative facet disease throughout the cervical spine, most pronounced at C5-6. Upper airway is patent. No prevertebral soft tissue swelling. Impression: 1. No fracture. 2. Straightening of the normal cervical lordosis can be seen with patient positioning or muscle spasm. 3. Njaz-ns-gshofzbh multilevel degenerative change. This document has been electronically signed by: Henry Woodward MD on 02/23/2025 08:35:21
== END 2025-02-22 07:41 | disposition home or self-care (01) ==
LOC: HO.XRAY 07:40
PROVIDERS: Absent Provider Student in an Organized Health Care Education/Training Program; PCP Family Medicine; Visit Provider Nurse Practitioner Family
DX: G44.86 Cervicogenic headache (principal); Z12.11 Encounter for screening for malignant neoplasm of colon; K59.01 Slow transit constipation
CPT/HCPCS: 72040; 99212

== ENCOUNTER 2025-02-22 07:40 | Outpatient (AMB) | payer OTHER, SELFPAY ==
--- OUTSIDE RECORDS SUMMARY | 2025-02-22 07:42 | XMS_ITS | Encounter Summary ---
Author Organization [employer] Address [address] [facility] 7t [place] [address] Care Team Providers Care Switchman Supervisor Name Role Phone RoxannaAnushka lara Primary Care Provider Reason for Visit * Reason Comments Med Refill Encounter Details Date Type Department Care Team (Late st Contact Info) Description 08/03/2023 Refill [facility] MEDICINE [address] [place] [address] Janine Pulido MD [address] [place] [address] Dry eyes Social History Tobacco Use Types [...] Care Team (Late st Contact Info) Description 02/26/2025 9:45 AM EDT Office Visit [facility] MEDICINE [address] [place] [address] 07/08/2025 9:00 AM EDT Office Visit [facility] OPTOMETRY [address] [place] [address] Fuad, Karon, OD [address] [place] [address] documented as of this encounter Visit Diagnoses Diagnosis Dry eyes Unspecified tear film insufficiency documented in this encounter Additional Health Concerns Assessment Noted Time PHQ-9 Depression Total Score: 0 12/10/19 23 10:17 AM EST documented as of this encounter Care Teams Switchman Supervisor Relationship Specialty Start Date End Date Anushka Figueredo DO [address] [place] [address] PCP - General Family Medicine 10/03/18 documented as of this encounter
--- NOTE | 2025-02-22 08:01 | MHC.OFFVIS ---
Vital Signs 02/22/25 08:07 Height 5 ft Weight 240 lb BMI 46.9 BP 140/60 H Blood Pressure Location Rt brachial Position Sitting Pulse 56 Pulse Source Pulse Oximeter Pulse Oximetry (%) 98 Oxygen Delivery Method Room Air Intake Visit Reasons: colo screening Intake Note: NEW PATIENT for recall colo screening. Last w/ Dr. Holley 2014. CC; Pt denies any GI sx or concerns at this time. Metal Treater Required: No Accompanied by: Self / Same As Patient Allergies BANDAIDS Allergy (Intermediate, Uncoded 02/22/25 08:02) BLISTERS STERI-STRIPS Allergy (Intermediate, Uncoded 02/22/25 08:02) BLISTERS HPI HPI colo screening: Details: 64 year old? female with past medical history of breast CA, hypertension, left knee replacement, osteoarthritis, pituitary macroadenoma is here today for pre colonoscopy screening.? Patient was sent to us by her PCP.? Last colonoscopy in [address] Holley. Patient denies any gastrointestinal symptoms in the past or at present.? However patient does report to be constipated despite taking senna. Denies any personal or family history of gastrointestinal disease, colon polyps, or CRC.? Denies history of difficulty with sedation or anesthesia in the past.? Negative for history of sleep apnea.? Denies any history of cardiac, renal, pulmonary, or hepatic disease.?? No history of infectious? diseases like hepatitis A, B, C, HIV or tuberculosis.? Patient is not on any anticoagulation [facility] Medical History Goiter Pituitary macroadenoma COVID-19 vaccine series completed Wears dentures Hx of radiation therapy Cancer Back pain Arthritis History of headache Personal history of tuberculosis Asthma HTN (hypertension) Impingement syndrome of right shoulder Surgical History Status post arthroscopy of right knee Hx of hand surgery History of revision of total knee arthroplasty Hx of dilation and curettage Hx of hysterectomy Hx of total knee replacement History of sleeve gastrectomy Hx of foot surgery History of lumpectomy of right breast H/O colonoscopy Family History Father No problems noted. Mother No problems noted. Social History Household Members: Children Housing: House Are you a primary health care consultant to a significant other at home: No Do you presently have visiting nurse or other home services: Yes (SURFACE GRINDING MACHINE HAND) Alcohol intake: never Comment: sleeping Patient Tobacco Use Status: Never used Tobacco service: No Current occupational status: disabled Current occupation: Right Handed Review of Systems Const Denies weight gain and Denies weight loss ENT Reports no additional complaints, Denies dysphagia and Denies odynophagia Card Reports no additional complaints Resp Reports no additional complaints GI Denies abdominal pain, Denies belching, Denies melena, Denies bloating, Denies change in bowel habits, Denies dysphagia, Denies excessive flatus, Denies dyspepsia, Denies heartburn, Denies diarrhea, Denies loose stools, Denies nausea, Denies odynophagia and Denies vomiting Musc Reports no additional complaints Neuro Reports no additional complaints Psych Reports no additional complaints Endo Reports no additional complaints Physical Exam Vital Signs: BMI result Body Mass Index 46.9 Const General: healthy appearing, no acute distress and well developed Nutritional Appearance: well nourished and obese Orientation/consciousness: patient oriented x3 Resp Effort & Inspection: normal respiratory effort, able to speak in complete sentences, no tracheal deviation and symmetric chest movement Auscultation: clear to auscultation bilaterally Cardio Rate: regular rate GI Inspection: Yes normal to inspection, No distended and Yes obesity Palpation (GI): Soft to palpation, not firm, nontender and No hepatosplenomegaly present Auscultation: normal bowel sounds General: Yes no CVA tenderness Back/Spine/Pelvis Back: no CVA tenderness Skin General skin exam: elasticity normal, turgor normal and dry skin Neuro General: patient oriented x3 Psych Appearance: grossly normal Mental Status: mental status grossly normal Assessment & Plan Assessment & Plan (1) Screen for colon cancer: Code(s): Z12.11 - Encounter for screening for malignant neoplasm of colon (2) Constipation: Code(s): K59.00 - Constipation, unspecified Qualifiers: Constipation type: slow transit constipation Qualified Code(s): K59.01 - Slow transit constipation Plan Patient denies any GI, cardiac or respiratory symptoms.? However patient does reports to be constipated, currently taking senna. Not always effective. Will change it to Dulcolax. Denies any issues with anesthesia in the past.? Denies any history of sleep apnea.? No history infectious diseases in the past or present.? Not on any anticoagulation therapy.? No family or personal history of colon cancer.? Patient denies melena, hematochezia, unintentional weight loss or ribbon like stools.? Discussed at length the pre-procedure,? prep, diet & medications as well as what to expect prior, during and after the procedure.?? Stressed the importance of good bowel prep.? Recommended the use of Vaseline or Calmoseptine OTC & baby wipes with bowel movements to promote comfort.? ?Patient verbalizes understanding and agrees to plan of care.? She was given the opportunity to ask questions and all questions answered.? We will see her after the procedure.? Medications: New bisacodyl (Dulcolax (bisacodyl)) 10 mg (2 x 5 mg) PO BEDTIME 180 tabs 4RF polyethylene glycol 3350 (Miralax) As directed by gastroenterology department at [facility] 238 grams PO ONCE 238 grams 0RF Z12.11 - Encounter for screening for malignant neoplasm of colon Coding Level of Care Code New Pt Level 3 (46159) Diagnoses Screen for colon cancer Z12.11 Slow transit constipation K59.01 Constipation type: slow transit constipation Time Spent (min) 40 Comment 30 minutes spent with patient and additional 10 minutes spent reviewing her records
[2025-02-22 08:07] VITALS: BP 140/60; PULSE 56; O2SAT 98; BMI 46.9
== END 2025-02-22 08:32 | disposition home or self-care (01) ==
LOC: HO.HGI 07:41
PROVIDERS: PCP Family Medicine; Visit Provider Nurse Practitioner Family
DX: Z01.818 Encounter for other preprocedural examination (principal); Z12.11 Encounter for screening for malignant neoplasm of colon; K59.01 Slow transit constipation
CPT/HCPCS: 99024

== ENCOUNTER → 2025-02-22 08:41 | Outpatient (BNV) | payer OTHER, SELFPAY | PROVIDERS: Absent Provider Student in an Organized Health Care Education/Training Program; PCP Family Medicine; Visit Provider Radiology Diagnostic Radiology | DX: G44.86 Cervicogenic headache (principal) | CPT/HCPCS: 72040 ==

== ENCOUNTER 2025-04-24 10:48 | Outpatient (REF) | payer OTHER, SELFPAY ==
--- NOTE | ~2025-04-24 | XR_ITS ---
Examination: 5 view L-spine TECHNIQUE: AP, lateral, lateral spot, and bilateral oblique views of the lumbar spine were obtained using x-ray FINDINGS: An IVC filter projects to the right of the mid lumbar spine. There is a staple line in the medial left upper quadrant extending to midline. There are 5 non-rib bearing lumbar segments. Vertebral body height and alignment is preserved. Facet sclerosis and osteophytes are present at L4-5, and L5-S1. Oblique views demonstrates no pars intra-articular is defects. XR/XR lumbar spine 4V min IMPRESSION: Moderate facet arthropathy is evident in the lower lumbar spine. Electronically signed by: Harry Cruz MD 04/24/2025 12:31 PM EDT
--- OUTSIDE RECORDS SUMMARY | 2025-04-24 11:49 | XMS_ITS | Encounter Summary ---
Author Organization [facility] Address [address] [place] [address] Phone Care Team Providers Care Forest Science Professor Name Role Phone Anushka Figueredo DO Primary Care Provider Encounter Details Date Type Department Care Team (Late st Contact Info) Description 12/28/2022 Procedure Pass [facility] [address] [place] [address] Social History Tobacco Use Types Packs/Day Years Used Date Smoking Tobacco: Never Assessed Comments Unknown Sex and Gender Information Value Date Recorded Sex Assigned at Female 04/19/2022 10:43 AM EDT Legal Sex Female 5:00 AM EST Gender Identity Female 04/19/2022 10:43 AM EDT Sexual Orientation Straight 04/19/2022 10 :43 AM EDT documented as of this encounter Plan of Treatment Not on file documented as of this encounter Visit Diagnoses Not on filedocumented in this encounter Care Teams Forest Science Professor Relationship Specialty Start Date End Date Anushka Figueredo DO [address] [place] [address] PCP - General Family Medicine 09/17/21 documented as of this encounter Additional Source Comments The information contained in this document represents components of the legal health record. It is not the complete legal health record.[facility]
--- OUTSIDE RECORDS SUMMARY | 2025-04-24 11:49 | XMS_ITS | Data Portability ---
Author Organization [facility] idio [facility], [facility] Address [address] [place] [phone] Care Team Providers Care Tube Drawer Name Role Phone HIM CCA OTHER Assessment No assessment recorded. Plan of Treatment Reminders Order Date Submit Date Provider Last Modified By Organization Details Last Modified Time Details Appointments None recorded. Lab None recorded. Referral None recorded. Procedures None recorded. Surgeries None recorded. Imaging None recorded. Medication Orders ketorolac 30 mg/mL injection solution 2023 024 [facility], [address] [place] [address], [id number], 4 20:38:17 Patient TargetsNo targets recorded. Patient [...] in Arterial blood by Pulse oximetry Systolic And Diastolic Provider Name and Address Organization Details Last Updated DateTime 4 99.1 [degF] 19 /min 155468. 792 g 154.94 cm 65 /min 97 % 97 % 152/72 mm[Hg] Not Available [employer] - production 4 [...] SNOMED-CT Code Diagnosis ICD10 Code Diagnosis Note [id number] Aung Ingram MD Main - [address] [address] 09/14/2024 16:41:03 09/14/2024 21:58:24 Pain in right thumb [id number] M79.644 As noted, we were called to see this patient regarding concerns of pain in right thumb and headache. Evaluation in the field was performed by my angiographer colleague, as noted above, I provided real-time direction and supervisio n for this visit. The evaluation revealed chronic headache (more than three years per angiographer) with pain to the right thumb. Thumb [...] Recorded Advance Directives Directive None Recorded Payers Insurance Date Sequence Insurance Name Policy Number Policy Mata Covered Member ID Mata Member ID Guarantor Name 09/26/2024 1 [facility] - DOS ON OR AFTER 2023 - DUAL ELIGIBLE - HALFWAY OPTIONS AND ONE CARE (MEDICARE REPLACEMENT/ADV ANTAGE - HMO) Gretel Tran Azeb [id number] Gretel Tran Azeb Notes Date Note Type [...] .................. .................. .................. .................. .................. .................. ............... Eap Clinician Note From Rigo Stauffer: Pt chief complaint today of pain located in her right hand where her thumb meds her palm. Pt states that this pain has been going on for quite some time however she is able to state that the pain has entered a more severe sense in the last week before her [facility] appointment today. To has a history [...] mostly located in the increase with movement. [facility] Aung Ingram consultedPt given 15 mg Im of ketorlac into the left deltoid. Pt ignored to seek a further consultation with her pcp as early as possible. Pt educated on red flag S&S and informed to call emergency services if any present. .................. .................. .................. .................. .................. .................. .................. ............... [facility] Consulted: Aung Ingram .................. .................. .................. .................. .................. .................. .................. ............... Disposition: Fulfilled Aung Ingram MD [address] [facility],[address], [place], [address], [employer] [facility] 09/14/2024 20:38:30 OBGyn Episode No OBEpisode recorded.
--- OUTSIDE RECORDS SUMMARY | 2025-04-24 11:49 | XMS_ITS | Encounter Summary ---
Author Organization [facility] Address [address] [place] [address] Care Team Providers Care Service Restorer Emergency Name Role Phone Crista Gaines Unavailable [phone] Anushka Figueredo Primary Care Provider [phone] Encounter Details Date Type Department Care Team (Late st Contact Info) Description 02/15/2022 Orders Only [facility] Department of Neurosurgery [address] [place] [address] Ej Badillo PA-C Pituitary tumor (Primary Dx) [...] system documented in this encounter Care Teams Service Restorer Emergency Relationship Specialty Start Date End Date Anushka Figueredo [address] [place] [phone] PCP - General 10/30/21 Crista Gaines MBBS [address] [place] [address] [place] [address] Consulting Physician Endocrinology 10/09/21 documented as of this encounter
--- OUTSIDE RECORDS SUMMARY | 2025-04-24 11:49 | XMS_ITS ---
Author Name [facility] Organization Unknown History of Medication Use Medication Directions Dispensed Refills Start Date End Date Stat oxyCODONE (ROXICODONE) 5 mg immediate release tablet TAKE 1 TABLET BY MOUTH EVERY 6 HOURS NEEDED FOR SEVERE PAIN 08/13/2022 active acetaminophen (TYLENOL) 325 mg tablet Take 650 mg by mouth every 6 (six) hours as needed. active amitriptyline (ELAVIL) 10 mg tablet Take 10 mg by mouth nightly. active oxybutynin XL (DITROPAN-XL) 10 mg 24 hr tablet Take 10 mg by mouth daily. 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 ProblemAct [facility] 6th nerve palsy, right active EncounterDiagnosisAct [facility] COVID-19 active 2021-09-18 ProblemAct [facility] HTN (hypertension) active 2021-09-18 ProblemAct [facility] Pituitary adenoma active 2021-10-22 ProblemAct [facility] Encounters Encounter Type Encounter Reason Primary Diagnosis Location Date Ambulatory Sixth (abducent) nerve palsy, right eye [facility] 08/17/2022 Ambulatory [facility] 04/30/2022 Ambulatory Diplopia [facility] 03/10/2022 Ambulatory Diplopia [facility] 02/11/2022 Ambulatory [facility] 02/11/2022 Ambulatory Diplopia [facility] 02/09/2022 Ambulatory [facility] 12/09/2021 Ambulatory [facility] 11/30/2021 Ambulatory Follow-up [facility] 11/05/2021 Ambulatory Other visual disturbances [facility] 10/30/2021 Ambulatory Benign neoplasm of pituitary gland [facility] 10/22/2021 Ambulatory Benign neoplasm of pituitary gland [facility] 10/22/2021 Ambulatory Benign neoplasm of pituitary gland [facility] 10/15/2021 Inpatient Other disorders of pituitary gland [facility] 09/18/2021 Care Team Organization Name Specialty Phone Email Start Date End Da te [facility] Anushka Figueredo Primary Care 08/17 [facility] ANUSHKA FIGUEREDO Primary Care 09/1802/09/2022 [facility] BRETT PCP Primary Care 09/18/202107/2022
== END 2025-04-24 10:49 | disposition home or self-care (01) ==
LOC: HO.HHCX 10:48
PROVIDERS: Visit Provider Family Medicine
DX: R20.2 Paresthesia of skin (principal)
CPT/HCPCS: 72110

== ENCOUNTER → 2025-04-24 10:50 | Outpatient (BNV) | payer OTHER, SELFPAY | PROVIDERS: Visit Provider Radiology Diagnostic Radiology | DX: M46.96 Unspecified inflammatory spondylopathy, lumbar region (principal) | CPT/HCPCS: 72110 ==

== ENCOUNTER 2025-04-26 08:03 | Outpatient (REF) | payer OTHER, SELFPAY ==
--- OUTSIDE RECORDS SUMMARY | 2025-04-26 08:05 | XMS_ITS | Encounter Summary ---
Author Organization [facility] Address [address] [place] [address] Phone Care Team Providers Care Health Safety Coordinator Name Role Phone Anushka Figueredo DO Primary Care Provider Encounter Details Date Type Department Care Team (Late st Contact Info) Description 12/28/2022 Procedure Pass [facility], [address] [address] Social History Tobacco Use Types Packs/Day Years [...] on filedocumented in this encounter Care Teams Health Safety Coordinator Relationship Specialty Start Date End Date Anushka Figueredo DO [address] [place] [address] PCP - General Family Medicine 09/17/21 documented as of this encounter Additional Source Comments The information contained in this document represents components of the legal health record. It is not the complete legal health record.[facility]
--- OUTSIDE RECORDS SUMMARY | 2025-04-26 08:05 | XMS_ITS | Encounter Summary ---
Author Organization [facility] Address [address] [place] [address] Care Team Providers Care Cooling Tower Technician Name Role Phone Crista Gaines Unavailable [phone] Anushka Figueredo Primary Care Provider [phone] Encounter Details Date Type Department Care Team (Late st Contact Info) Description 02/15/2022 Orders Only [facility] Department of Neurosurgery [address] [place] [address] Ej Badillo PA-C Pituitary tumor (Primary Dx) [...] system documented in this encounter Care Teams Cooling Tower Technician Relationship Specialty Start Date End Date Anushka Figueredo [address] [place] [phone] PCP - General 10/30/21 Crista Gaines MBBS [address] [place] [address] [place] [address] Consulting Physician Endocrinology 10/09/21 documented as of this encounter
--- OUTSIDE RECORDS SUMMARY | 2025-04-26 08:05 | XMS_ITS | Encounter Summary ---
Author Organization [employer] Address [address] [facility] 7t [place] [address] Care Team Providers Care Street And Building Decorator Name Role Phone RoxannaAnushka lara Primary Care Provider [phone] Reason for Visit * Reason Comments Med Refill Encounter Details Date Type Department Care Team (Late st Contact Info) Description 08/03/2023 Refill [facility] [address] [place] [address] Janine Pulido MD [address] [place] [address] Dry eyes Social History Tobacco Use Types [...] Care Team (Late st Contact Info) Description 06/25/2025 9:45 AM EDT Office Visit [facility] [address] [place] [address] 07/08/2025 9:00 AM EDT Office Visit [facility] [address] [place] [address] Fuad, Karon, OD [address] [place] [address] documented as of this encounter Visit Diagnoses Diagnosis Dry eyes Unspecified tear film insufficiency documented in this encounter Additional Health Concerns Assessment Noted Time PHQ-9 Depression Total Score: 0 12/10/19 23 10:17 AM EST documented as of this encounter Care Teams Street And Building Decorator Relationship Specialty Start Date End Date Anushka Figueredo DO [address] [place] [address] PCP - General Family Medicine 10/03/18 documented as of this encounter
--- OUTSIDE RECORDS SUMMARY | 2025-04-26 08:05 | XMS_ITS | Data Portability ---
Author Organization [facility], [facility] Address [address] [place] [phone] Care Team Providers Care Part Time Receptionist Name Role Phone HIM CCA OTHER Assessment No assessment recorded. Plan of Treatment Reminders Order Date Submit Date Provider Last Modified By Organization Details Last Modified Time Details Appointments None recorded. Lab None recorded. Referral None recorded. Procedures None recorded. Surgeries None recorded. Imaging None recorded. Medication Orders ketorolac 30 mg/mL injection solution 2023 024 [facility], [address] [place] [address], [id number], 4 20:38:17 Patient TargetsNo targets recorded. Patient [...] Updated DateTime 4 99.1 [degF] 19 /min 210333. 792 g 154.94 cm 65 /min 97 [...] SNOMED-CT Code Diagnosis ICD10 Code Diagnosis Note [id number] Aung Ingram MD Main - inst[address] [address] 09/14/2024 16:41:03 09/14/2024 21:58:24 Pain in right thumb [id number] M79.644 As noted, we were called to see this patient regarding concerns of pain in right thumb and headache. Evaluation in the field was performed by my supervisor hairspring fabrication colleague, as noted above, I provided real-time direction and supervisio n for this visit. The evaluation revealed chronic headache (more than three years per supervisor hairspring fabrication) with pain to the right thumb. Thumb [...] Mata Member ID Guarantor Name 09/26/2024 1 [facility] - DOS ON OR AFTER 2023 - DUAL ELIGIBLE - ASSISTED OPTIONS AND ONE CARE (MEDICARE REPLACEMENT/ADV ANTAGE - HMO) Gretel Tran Azeb [id number] Gretel Tran Azeb Notes Date Note Type [...] .................. .................. .................. .................. .................. .................. ............... Manager Philosophy Note From Rigo Stauffer: Pt chief complaint today of pain located in her right hand where her thumb meds her palm. Pt states that this pain has been going on for quite some time however she is able to state that the pain has entered a more severe sense in the last week before her [facility] appointment today. To has a [...] mostly located in the increase with movement. [facility] Aung Ingram consultedPt given 15 mg Im of ketorlac into the left deltoid. Pt ignored to seek a further consultation with her pcp as early as possible. Pt educated on red flag S&S and informed to call emergency services if any present. .................. .................. .................. .................. .................. .................. .................. ............... [facility] Consulted: Aung Ingram .................. .................. .................. .................. .................. .................. .................. ............... Disposition: Fulfilled Aung Ingram MD [address] [facility],[address], [place], [address], [employer] [facility] 09/14/2024 20:38:30 OBGyn Episode No OBEpisode recorded.
[2025-04-26 11:18] LABS: MANUAL DIFF FLAG NO
[2025-04-26 11:27] LABS: Hemoglobin A1C 118.2816 umol/L; Total Hemoglobin (HGBA1C) 3208.5778 umol/L
[2025-04-26 11:28] LABS: Osmolality, Serum 297 mosm/kg (281-305)
[2025-04-26 11:29] LABS: Hematocrit 39.7 % (37.0-47.0); Hemoglobin 12.2 g/dl (12.0-16.0); Imm Gran Abs Auto 0.01 X10*3/uL (0.00-0.03); Imm Gran Pct Auto 0.2 % (0.0-0.4); Lymphocytes Absolute Auto 1.1 X10*3/uL (1.2-4.9); Mean Corpuscular HGB Conc 30.7 g/dl (31.0-35.0); Mean Corpuscular Hemoglobin 27.9 pg (27.0-33.0); Mean Corpuscular Volume 90.6 fL (80.0-98.0); NRBC Abs Auto 0.000 X10*3/uL (0.0-0.012); NRBC Pct Auto 0.0 /100WBC (0.0-0.2); Platelet Count 263 X10*3/uL (160-400); Red Blood Count 4.38 X10*6/uL (4.20-5.50); White Blood Count 4.7 X10*3/uL (4.8-10.8)
[2025-04-26 11:50] LABS: Alanine Aminotransferase 21 U/L (0-31); Albumin Level 4.0 g/dL (3.5-5.0); Alkaline Phosphatase 63 U/L (39-117); Anion Gap 10 (12-20); Aspartate Amino Transferase 32 U/L (5-31); Blood Urea Nitrogen 19 mg/dL (9-16); Calcium 9.2 mg/dL (8.4-10.2); Carbon Dioxide 30 mmol/L (22-29); Chloride 106 mmol/L (96-108); Cholesterol 177 mg/dL (<200); Estimated Glomerular Filt Rate > 60; HDL Cholesterol 68 mg/dL (>40); Iron 74 mcg/dL (30-160); Percent Iron Saturation 27 % (15-50); Potassium 4.3 mmol/L (3.3-5.1); Sodium 142 mmol/L (135-145); Total Iron Binding Capacity 276 mcg/dL (228-428); Total Protein 6.8 g/dL (6.5-8.0); Triglycerides 46 mg/dL (<150); Unsaturated Iron Binding 202 ug/dL
[2025-04-26 11:51] LABS: Anion Gap 9 (12-20); Blood Urea Nitrogen 18 mg/dL (9-16); Calcium 9.2 mg/dL (8.4-10.2); Carbon Dioxide 31 mmol/L (22-29); Chloride 106 mmol/L (96-108); Estimated Glomerular Filt Rate > 60; Potassium 4.1 mmol/L (3.3-5.1); Sodium 142 mmol/L (135-145)
[2025-04-26 12:03] LABS: HBS Num1 1.68 mIU/mL (0-7.99); HBsAGNum1 0.31 S/CO (0.00-0.99); HIV Num 1 0.07 S/CO (0.00-0.99); Hepatitis B Surface Antigen Negative (Negative); ~HepC Num1 0.08 S/CO (0.00-0.79); ~Hepatitis B Surface Antibody NONREACTIVE (Nonreactive); ~Hepatitis C Antibody Nonreactive (Nonreactive)
[2025-04-26 12:15] LABS: Folate 11.2 ng/mL (> or = 4.0); Vitamin B12 538 pg/mL (200-900)
[2025-04-26 12:16] LABS: Ferritin 46 ng/mL (10-250); Free T4 (Free Thyroxine) 1.06 ng/dL (0.71-1.85); Free T4 (Free Thyroxine) 1.09 ng/dL (0.71-1.85); Thyroid Stimulating Hormone 1.30 uIU/mL (0.32-4.0); Thyroid Stimulating Hormone 1.35 uIU/mL (0.32-4.0)
[2025-04-26 12:27] LABS: Microalbum/Creatinine Ratio Ur 7.0 ug/mg cr (<30)
[2025-04-26 13:00] LABS: CT PCR Urine NOT DETECTED (Not Detect.); NG PCR Urine NOT DETECTED (Not Detect.)
[2025-04-27 08:28] LABS: Follicle Stimulating Hormone 39.9 mIU/mL
[2025-05-07 11:33] LABS: Estradiol Ultra Sensitive 20 pg/mL
== END 2025-04-26 08:04 | disposition home or self-care (01) ==
LOC: HO.HHCL 08:03
PROVIDERS: Student in an Organized Health Care Education/Training Program; PCP Family Medicine; Visit Provider Family Medicine
DX: I10 Essential (primary) hypertension (principal); E03.9 Hypothyroidism, unspecified; K76.0 Fatty (change of) liver, not elsewhere classified; J45.20 Mild intermittent asthma, uncomplicated; D35.2 Benign neoplasm of pituitary gland; R51.9 Headache, unspecified; Z86.000 Personal history of in-situ neoplasm of breast; C54.1 Malignant neoplasm of endometrium; M25.561 Pain in right knee; M25.562 Pain in left knee; G89.29 Other chronic pain; M25.512 Pain in left shoulder; G56.03 Carpal tunnel syndrome, bilateral upper limbs; G56.23 Lesion of ulnar nerve, bilateral upper limbs; R13.10 Dysphagia, unspecified; G47.30 Sleep apnea, unspecified; R20.2 Paresthesia of skin; Z00.00 Encounter for general adult medical examination without abnormal findings; Z71.3 Dietary counseling and surveillance; Z71.82 Exercise counseling; Z11.1 Encounter for screening for respiratory tuberculosis; Z11.59 Encounter for screening for other viral diseases; Z13.1 Encounter for screening for diabetes mellitus
CPT/HCPCS: 36415; 80048; 80061; 80076; 82024; 82043; 82105; 82306; 82533; 82570; 82607; 82670; 82728; 82746; 83001; 83002; 83003; 83036; 83540; 83930; 84146; 84270; 84439; 84443; 85025; 86592; 86706; 86803; 87340; 87389; 87491; 87591

== ENCOUNTER 2025-07-03 10:05 | Outpatient (REF) | payer OTHER, SELFPAY ==
--- OUTSIDE RECORDS SUMMARY | 2025-07-03 09:00 | XMS_ITS | Encounter Summary ---
Author Organization [employer] Address [address] [facility] [address] [place] [address] Care Team Providers Care Correctional Lieutenant Name Role Phone Anushka Figueredo DO Primary Care Provider [phone] Reason for Referral * Consultation (Routine) - Pending Review Specialty Diagnoses / Procedures Referred By Kamilah marcial Referred To Contact Physical Therapy Diagnoses Benign paroxysmal positional vertigo due to bilateral vestibular disorder Megha Lynch NP [address] [place] [address] Phone: tel: fax: Referral ID Status Reason Start Date Expiration Date Visits Requested Visits Authorized [id number] Pending Review Specialty Services Required 07/03/2025 07/03/2026 1 1 Reason for Visit * Reason Comments Dizziness Encounter Details Date Type Department Care Team ([facility] st Contact Info) Description 07/03/2025 9:00 AM EDT Office Visit [facility] [address] [place] [address] Benign paroxysmal positional vertigo due to bilateral vestibular disorder (Primary Dx) Social History Tobacco Use Types [...] Sign Reading Time Taken Comments Blood Pressure 134/86 07/03/2025 9:23 AM EDT Pulse 66 07/03/2025 9:23 AM EDT Temperature 36.6 C (97.9 F) 07/03/2025 9:11 AM EDT Respiratory Rate 18 07/03/2025 9:11 AM EDT Oxygen Saturation - - Inhaled Oxygen Concentration - - Weight 107 kg (236 lb 4 oz) 07/03/2025 9:11 AM E DT Height 152.4 cm (5') 07/03/2025 9:11 AM EDT Body Mass Index 46.14 07/03/2025 9:11 AM EDT documented in this encounter Miscellaneous Notes * Assessment & Plan Note - Francisco J Paris NP - 07/03/2025 9:00 AM EDT Associated Problem(s): Benign paroxysmal positional vertigo due to bilateral vestibular disorder Associated with dehydration with end beat nystagmus. Labs ordered to rule out other etiologies. Gretel in agreement with a trial of physical therapy. Informed of meclizine treatment, decided to defer due to her current presentation of her dry mouth and will reconsider this during the next visit. Encouraged to increase her water intake as tolerated, as this will decrease the dry mouth. Educated regarding the condition with literature offered to the patient to take home. Encouraged toincrease her fluid intake as directed, report new onset of changes in vision, nausea, vomiting, or exacerbation, frequent episodes of dizziness Orders: CBC auto differential; Future Comprehensive Metabolic Panel; Future Referral to Physical Therapy; Future documented in this encounter Plan of Treatment Upcoming Encounters Date Type Department Care Team (Late st Contact Info) Description 07/08/2025 9:00 AM EDT Office Visit [facility] [address] [place] [address] Fuad, Karon, OD [address] [place] [address] 07/30/2025 9:45 AM EDT Office Visit [facility] [address] [place] [address] Scheduled Orders Name Type Priority Associated Diagnoses Orde r Schedule CBC auto differential Lab Routine Benign paroxysmal positional vertigo due to bilateral vestibular disorder Expected: 07/03/2025 (Approximate), Expires: 07/03/2026 Comprehensive Metabolic Panel Lab Routine Benign paroxysmal positional vertigo due to bilateral vestibular disorder Expected: 07/03/2025 (Approximate), Expires: 07/03/2026 Scheduled Referrals Name Type Priority Associated Diagnoses Orde r Schedule Referral to Physical Therapy Outpatient Referral Routine Benign paroxysmal positional vertigo due to bilateral vestibular disorder Expected: 07/03/2025 (Approximate), Expires: 07/03/2026 documented as of this encounter Visit Diagnoses Diagnosis Benign paroxysmal positional vertigo due to bilateral vestibular disorder- Primary documented in this encounter Additional Health Concerns Assessment Noted Time PHQ-9 Depression Total Score: 4 07/24/20 24 9:07 AM EDT documented as of this encounter Care Teams Correctional Lieutenant Relationship Specialty Start Date End Date Anushka Figueredo DO [address] [place] [address] PCP - General Family Medicine 10/03/18 documented as of this encounter
--- OUTSIDE RECORDS SUMMARY | 2025-07-03 11:19 | XMS_ITS | Encounter Summary ---
Author Organization [employer] Address [address] [facility] 7t [place] [address] Care Team Providers Care Septic Tank Cleaner Name Role Phone Anushka Figueredo DO Primary Care Provider Reason for Visit * Reason Onset Date Comments Med Refill 01/16/2025 Encounter Details Date Type Department Care Team ([facility] st Contact Info) Description 01/16/2025 Refill [facility] [address] [place] [address] Anushka Figueredo DO [address] [place] [address] Chronic pain of both knees Social History [...] Description 07/08/2025 9:00 AM EDT Office Visit [facility] OPTOMETRY [address] [place] [address] Fuad, Karon, OD [address] [place] [address] 07/30/2025 9:45 AM EDT Office Visit [facility] [address] [place] [address] documented as of this encounter Visit Diagnoses Diagnosis Chronic pain of both knees documented in this encounter Additional Health Concerns Assessment Noted Time PHQ-9 Depression Total Score: 4 07/24/20 24 9:07 AM EDT documented as of this encounter Care Teams Septic Tank Cleaner Relationship Specialty Start Date End Date Anushka Figueredo DO [address] [place] [address] PCP - General Family Medicine 10/03/18 documented as of this encounter
--- OUTSIDE RECORDS SUMMARY | 2025-07-03 11:19 | XMS_ITS | Encounter Summary ---
Author Organization [employer] Address [address] [facility] [address] [place] [address] Care Team Providers Care Bsw Name Role Phone Terell Anushka Primary Care Provider [phone] Encounter Details Date Type Department Care Team ([facility] st Contact Info) Description 01/12/2024 Orders Only [facility] [address] [place] [address] ProviderSandra MD Social History Tobacco Use Types [...] Description 07/08/2025 9:00 AM EDT Office Visit [facility] OPTOMETRY [address] [place], [place] [phone] Fuad, Karon, OD [address] [place], [place] [phone] 07/30/2025 9:45 AM EDT Office Visit [facility] [address] [place], [place] [phone] documented as of this encounter Procedures Procedure [...] documented as of this encounter Care Teams Bsw Relationship Specialty Start Date End Date Anushka Figueredo DO [address] [place] [address] PCP - General Family Medicine 10/03/18 documented as of this encounter
--- OUTSIDE RECORDS SUMMARY | 2025-07-03 11:19 | XMS_ITS | Encounter Summary ---
Author Organization [employer] Address [address] [place] [address] Care Team Providers Care Picker And Sorter Load And Unload Name Role Phone Roxannajane Anushka Primary Care Provider Encounter Details Date Type Department Care Team ([facility] st Contact Info) Description 11/30/2024 Orders Only [facility] [address] [place] [address] Colleen Paulson MD [address] [place] [address] Social History Tobacco Use Types Packs/Day Years [...] Description 07/08/2025 9:00 AM EDT Office Visit [facility] [address] [place] [address] Karon Merida, OD [address] [place] [address] 07/30/2025 9:45 AM EDT Office Visit [facility] [address] [place] [address] documented as of this encounter Visit Diagnoses Not on filedocumented in this encounter Additional Health Concerns Assessment Noted Time PHQ-9 Depression Total Score: 4 07/24/20 24 9:07 AM EDT documented as of this encounter Care Teams Picker And Sorter Load And Unload Relationship Specialty Start Date End Date Anushka Figueredo DO [address] [place] [address] PCP - General Family Medicine 10/03/18 documented as of this encounter
--- OUTSIDE RECORDS SUMMARY | 2025-07-03 11:19 | XMS_ITS | Encounter Summary ---
Author Organization [employer] Address [address] [facility] [address] [place] [address] Care Team Providers Care Quality Process Engineer Name Role Phone Anushka Figueredo DO Primary Care Provider Reason for Visit * Reason Onset Date Comments Nurse Triage 08/14/2024 Encounter Details Date Type Department Care Team ([facility] st Contact Info) Description 08/14/2024 Telephone [facility] [address] [place] [address] Anushka Figueredo DO [address] [place] [address] Nurse Triage Social History Tobacco Use Types [...] Description 07/08/2025 9:00 AM EDT Office Visit [facility] [address] [place] [address] Karon Merida, OD [address] [place] [address] 07/30/2025 9:45 AM EDT Office Visit [facility] [address] [place] [address] documented as of this encounter Visit Diagnoses Not on filedocumented in this encounter Additional Health Concerns Assessment Noted Time PHQ-9 Depression Total Score: 4 07/24/20 24 9:07 AM EDT documented as of this encounter Care Teams Quality Process Engineer Relationship Specialty Start Date End Date Anushka Figueredo DO [address] [place] [address] PCP - General Family Medicine 10/03/18 documented as of this encounter
--- OUTSIDE RECORDS SUMMARY | 2025-07-03 11:19 | XMS_ITS | Encounter Summary ---
Author Organization [employer] Address [address] [facility] [address] [place] [address] Care Team Providers Care Single Spindle Screw Machine Operator Name Role Phone Anushka Figueredo DO Primary Care Provider [phone] Reason for Visit * Reason Comments Med Refill Encounter Details Date Type Department Care Team (Late st Contact Info) Description 08/04/2023 Refill [facility] [address] [place] [address] Anushka Figueredo DO [address] [place] [address] Urinary incontinence, unspecified type Social History Tobacco [...] Description 07/08/2025 9:00 AM EDT Office Visit [facility] [address] [place] [address] Fuad, Karon, OD [address] [place] [address] 07/30/2025 9:45 AM EDT Office Visit [facility] [address] [place] [address] documented as of this encounter Visit Diagnoses Diagnosis Urinary incontinence, unspecified type documented in this encounter Additional Health Concerns Assessment Noted Time PHQ-9 Depression Total Score: 0 12/10/19 23 10:17 AM EST documented as of this encounter Care Teams Single Spindle Screw Machine Operator Relationship Specialty Start Date End Date Anushka Figueredo DO [address] [place] [address] PCP - General Family Medicine 10/03/18 documented as of this encounter
--- OUTSIDE RECORDS SUMMARY | 2025-07-03 11:19 | XMS_ITS | Clinical Summary ---
Author Organization [employer] Address [address] [place] [address] [address] [place] [address] Care Team Providers Care Electronic Systems Security Assessment Name Role Phone TerellAnushka Primary Care Provider Allergies Active Allergy Reactions Criticality Noted Date Comments Bacitracin-Polymyxin B High 09/20/2024 Other Reaction(s): Rash with Blisters Latex High 09/20/2024 Other Reaction(s): Rash with Blisters Wound Dressing Adhesive 12/09/2022 Wound Dressings 12/09/2022 Medications * This document contains information received from the source organization and may not represent a complete record from that organization. gabapentin (Neurontin) 300 MG capsule TAKE 1 CAPSULE BY MOUTH THREE TIMES DAILY IN THE MORNING, EVENING, AND BEDTIME 90 capsule 3 024 Active Blood Pressure kit 1 each 1 (one) time per week. 1 kit 024 Active Skin Protectants, Misc. (eucerin) cream [...] bedtime (pain). 50 g 2 025 Active senna (Senokot) 8.6 MG tablet TAKE 2 TABLETS ONCE DAILY IN THE MORNING NEEDED FOR CONSTIPATION 180 tablet 3 025 Active Multiple Vitamins-Minerals (PreserVision AREDS 2) capsuleIndication s:Dry eyes TAKE 1 CAPSULE BY MOUTH TWICE DAILY IN THE MORNING AND IN THE EVENING 180 capsule 3 Active amLODIPine (Norvasc) 10 MG tabletIndications :Essential hypertension TAKE 1 TABLET BY MOUTH EVERY MORNING 90 tablet 3 Active lisinopril 30 MG tablet TAKE 1 TABLET BY MOUTH EVERY MORNING 90 tablet 3 Active omeprazole OTC (PriLOSEC OTC) 20 MG EC tablet Take 1 tablet (20 mg) by mouth 2 times daily. Do not crush, chew, or split. 180 tablet 3 025 2025 Active celecoxib (CeleBREX) 200 MG capsule Take 200 mg by mouth 2 times daily. Active Lidocaine-Menthol (Lidocaine Plus Menthol) 4-1 % patch Place 1 patch on the skin 1 (one) time each day at the same time. Active magnesium oxide (Mag-Ox) 400 MG tablet TAKE 1 TABLET BY MOUTH TWICE DAILY IN THE MORNING AND IN THE EVENING Active omeprazole (PriLOSEC) [address] capsule Active oxybutynin XL (Ditropan-XL) 10 MG 24 hr tabletIndications :Urinary incontinence, unspecified type TAKE 1 TABLET BY MOUTH EVERY MORNING DO NOT BREAK, CRUSH, DISSOLVE OR CHEW 90 tablet 1 Active Diclofenac Sodium 1 % gelIndications:Os teoarthritis, unspecified osteoarthritis type, unspecified site Apply thin layer by topical route (quantity as directed on package insert) to affected area of pain 3 times daily as needed. 50 g 3 025 Active capsaicin (Capzasin-HP) 0.1 % creamIndications: Osteoarthritis, unspecified osteoarthritis type, unspecified site Apply thin layer by topical route up to 4 times daily for pain. 45 g 025 Active lidocaine-priloca ine (Emla) 2.5-2.5 % creamIndications: Osteoarthritis, unspecified osteoarthritis type, unspecified site Apply thin layer by topical route 3-4 times daily as needed for pain 30 g 2 025 Active acetaminophen (Tylenol 8 Hour) 650 MG ER tablet TAKE 1 TABLET BY MOUTH EVERY 6 HOURS NEEDED FOR PAIN 60 tablet 025 Active oxyCODONE (Roxicodone) 5 MG immediate release tabletIndications :Chronic pain of both knees Take 1 tablet (5 mg) by mouth every 6 (six) hours if needed for severe pain for up to 28 days. 112 tablet 025 2024 Active amitriptyline (Elavil) 50 MG tablet TAKE 1 TABLET BY MOUTH AT BEDTIME 30 tablet 5 Active loratadine (Claritin) 10 MG tabletIndications :Chronic allergic rhinitis TAKE 1 TABLET BY MOUTH EVERY MORNING 30 tablet 5 Active D3 Super Strength 50 MCG (1999 UT) capsule TAKE 1 CAPSULE BY MOUTH EVERY MORNING 30 capsule 11 Active cholecalciferol (Vitamin D-3) 50 MCG (1999 UT) capsule Take 1 capsule (50 mcg) by mouth Once per day. 30 capsule 11 024 2024 Discontinued amitriptyline (Elavil) 50 MG tablet TAKE 1 TABLET BY MOUTH AT BEDTIME 30 tablet 5 2024 Discontinued loratadine (Claritin) 10 MG tabletIndications :Chronic allergic rhinitis TAKE 1 TABLET BY MOUTH EVERY MORNING 30 tablet 5 025 2024 Discontinued oxyCODONE (Roxicodone) 5 MG immediate release tabletIndications :Chronic pain of both knees Take 1 tablet (5 mg) by mouth every 6 (six) hours if needed for severe pain for up to 28 days. Do not start before May 17, 2025. 112 tablet 025 2024 Discontinued(R eorder (will not trigger notification to Pharmacy)) Active Problems Problem Noted Date Diagnosed Date Benign paroxysmal positional vertigo due to bilateral vestibular disorder 07/03/2025 Assessment & Plan (07/03/2025 10:58 AM EDT): Associated with dehydration with end beat nystagmus. [...] to the patient to take home. Encouraged to increase her fluid intake as directed, report new onset of changes in vision, nausea, vomiting, or exacerbation, frequent episodes of dizziness Orders: CBC auto differential; Future Comprehensive Metabolic Panel; Future Referral to Physical Therapy; Future Chronic daily headache 09/19/2024 Chronic pain syndrome [...] Utox and pill count as expected from [facility] visit 02/01/24, so not performed today Regular [...] current use of opiate analgesic 2022 Overview (02/26/2025): Medication: oxycodone 5mg Q6H PRN Indication: chronic pain syndrome, OA, chronic pain left shoulder and bilat knees Last [facility] Agreement: 10/16/24, Dr. Figueredo Tier: II (visits Q3 months) - last eval by PCP Nov 2024 Assessment & Plan (06/25/2025 1:13 PM EDT): Timeline: - 10/16/24: [facility] Renewal. Group visit, utox/pill count WNL - 01/22/25: Group visit, utox/pill count WNL - 02/26/25: Group visit, utox/pill count as expected - 03/26/25: Group visit, utox/pill count as expected - 04/23/25: Group visit, utox/pill count as expected - 06/25/25: Group Visit, utox/pill count as expected Assessment & Plan (04/23/2025 1:17 PM EDT): Timeline: - 10/16/24: [facility] Renew[facility]. Group visit, utox/pill count WNL - 01/22/25: Group visit, utox/pill count WNL - 02/26/25: Group visit, utox/pill count as expected - 03/26/25: Group visit, utox/pill count as expected - 04/23/25: Group visit, utox/pill count as expected Assessment & Plan (03/26/2025 1:30 PM EDT): Timeline: - 10/16/24: [facility] Renew[facility]. Group visit, utox/pill count WNL - 01/22/25: Group visit, utox/pill count WNL - 02/26/25: Group visit, utox/pill count as expected - 03/26/25: Group visit, utox/pill count as expected Assessment & Plan (02/26/2025 1:10 PM EDT): Timeline: - 10/16/24: [facility] Renew[facility]. 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 Utox as expected Assessment & Plan (10/16/2024 1:37 PM EST): Timeline: - 10/16/24: [facility] Renewal. Group visit, utox/pill count WNL Assessment [...] S/P laparoscopic sleeve gastrectomy 09/10/2022 Pituitary macroadenoma (CMS/HCC) 10/22/2021 Pituitary apoplexy 09/18/2021 Overview (12/01/2022): Last Assessment & Plan: Patient presented to [facility] on 09/16 with headache, double vision, right side ptosis following a knee replacement surgery on September 09. 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 Transferred to [facility] on 09/19 after not improving with steroids. [...] Assessment & Plan: Right knee arthroplasty at [facility] on September 09. Discharged home on [...] in situ of breast BMI 40.0-44.9, adult ([facility]/HCC) 08/18/2015 Osteoarthritis 08/18/2015 Overview (10/16/2024): Xray February 2024: advanced degenerative changes of AC joint right shoulder Assessment & Plan (06/25/2025 1:12 PM EDT): -Good engagement and participation with Group Medical Visit model -Encouraged multifactorial approach to pain control including pharm and non- pharm modalities Assessment & Plan (04/23/2025 1:17 PM EDT): -Good engagement and participation with Group Medical Visit model -Encouraged multifactorial approach to pain control including pharm and non- pharm modalities Assessment & Plan (03/26/2025 1:30 PM EDT): -Good engagement and participation with Group Medical Visit model -Encouraged multifactorial approach to pain control including pharm and non- pharm modalities Assessment & Plan (02/26/2025 1:11 PM EDT): DME rx for 10-in-1 pillow requested 10/16/24 -Good engagement and participation with Group Medical Visit model -Encouraged multifactorial approach to pain control including pharm and non- pharm modalities Assessment & Plan (10/16/2024 1:33 PM EST): DME rx for 10-in-1 pillow requested 10/16/24 -Good engagement and participation with Group Medical Visit model -Encouraged multifactorial approach to pain control including pharm and non- pharm modalities -UTOX and Pill count as expected Resolved Problems Problem Noted Date Diagnosed Date Resolved Date Endometrial cancer 02/29/2024 History of breast cancer 02/27/2024 Severe obesity (CMS/HCC) 02/27/202402/2024 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 Date Type Department Care Team Description 07/03/2025 9:00 AM EDT Office Visit [address] [address] Benign paroxysmal positional vertigo due to bilateral vestibular disorder (Primary Dx) 07/02/2025 Telephone [facility] [address] [place] [phone] Anushka Figueredo DO Nurse Triage 06/25/2025 9:45 AM EDT Office Visit [facility] [address] [place] [address] Anna Elizabeth FNP Osteoarthritis, unspecified osteoarthritis type, unspecified site (Primary Dx); Long-term current use of opiate analgesic 06/25/2025 Travel 06/23/2025 Refill [facility] [address] [place] [address] Anushka Figueredo DO Chronic allergic rhinitis 06/17/2025 Refill [facility] [address] [place] [address] Anushka Figueredo DO Chronic pain of both knees 06/14/2025 Refill [facility] [address] [place] [id number] Anushka Figueredo DO Chronic pain of both knees 06/07/2025 Refill [facility] [address] [place] [address] Anushka Figueredo DO Chronic pain of both knees 05/16/2025 Refill [facility] [address] [place] [address] Anushka Figueredo DO Chronic pain of both knees 05/07/2025 Refill [facility] [address] [place] [address] [place] FNP 04/26/2025 Orders Only GENERIC EXTERNAL DATA DEPARTMENT Provider, Generic External Data 04/24/2025 10:00 AM EDT Office Visit [facility] [address] [place] [phone] Anushka Figueredo DO Essential hypertension (Primary Dx); Hypothyroidism (acquired); Fatty liver; Mild intermittent asthma without complication; Pituitary macroadenoma (CMS/HCC); Chronic daily headache; History of ductal carcinoma in situ of breast; History of endometrial adenocarcinoma (CMS/HCC); Chronic pain of both knees; Chronic left shoulder pain; Bilateral carpal tunnel syndrome; Ulnar neuropathy of both upper extremities; Dysphagia, unspecified type; Sleep-disordered breathing; Paresthesia of both lower extremities; Healthcare maintenance; Dietary counseling; Exercise counseling 04/24/2025 Travel 04/23/2025 9:45 AM EDT Office Visit [facility] [address] [place] [phone] Clara Anna, BHAVESH Osteoarthritis, unspecified osteoarthritis type, unspecified site (Primary Dx); Chronic pain of both knees; Long-term current use of opiate analgesic 04/23/2025 Travel 04/19/2025 Telephone [facility] [address] [place] [phone] Anushka Figueredo DO Chart Prep 04/16/2025 Patient Outreach [address] [address] Anushka Figueredo DO Pre-visit Planning (SDOH screening completed on 10/19/24) 04/11/2025 Refill [facility] [address] [place] [address] Anushka Figueredo DO Chronic pain of both knees 04/10/[address] [address] Anushka Figueredo DO Recall Appointment 04/10/2025 Travel from Last 3 Months Immunizations Immunization Administration Dates Next Due Moderna Covid-19 Vaccine [...] 18 07/03/2025 9:11 AM EDT Oxygen Saturation 98% 02/21/2024 9:49 AM EDT Inhaled Oxygen Concentration - - Weight 107 kg (236 lb 4 oz) 07/03/2025 9:11 AM E DT Height 152.4 cm (5') 07/03/2025 9:11 AM EDT Body Mass Index 46.14 07/03/2025 9:11 AM EDT Plan of Treatment Upcoming Encounters Date Type Department Care Team (Late st Contact Info) Description 07/08/2025 9:00 AM EDT Office Visit [facility] [address] [place] [address] Fuad, Karon, OD [address] [place] [address] 07/30/2025 9:45 AM EDT Office Visit [facility] [address] [place] [address] Health Maintenance Due Date Last Done Comments [...] 2018 Dental Oral Exam 01/16/2022 07/17/2021, 06/29/2019 Dental X-Ray: Full Mouth 07/18/2024 07/17/2021 Colonoscopy 11/07/2024 11/07/2014 Colorectal Cancer Screening 11/07/2024 COVID-19 Vaccine ( season) 2025 09/21/2022, 11/30/2021, 02/21/2021, Additional history exists Influenza Vaccine (#1) 2025 Depression Screening 07/24/2025 07/24/2024, 07/24/20 24 SDOH Screening 10/19/2025 10/19/2024 Alcohol/Substance Use Screening 10/31/2025 10/31/2024 Tobacco Screening 07/03/2026 07/03/2025 Lipid Panel 04/26/2030 04/26/2025, 01/31, 12/07/2022, Additional history exists Hepatitis C Screening Completed 04/26/2025, 021 HIB Vaccines Aged Out No longer eligi ble based on patient's age to complete this topic HPV Vaccines Aged Out No longer eligi ble based on patient's age to complete this topic IPV Vaccines Aged Out No longer eligi ble based on patient's age to complete this topic Meningococcal B Vaccine Aged Out No l onger eligible based on patient's age to complete [...] Comments POCT LINDSEY-14 URINE DRUG SCREEN Routine 06/25/2025 9:56 AM EDT Long-term current use of opiate analgesic ESTRADIOL Routine 04/26/2025 8:15 AM EDT ACTH, PLASMA Routine 04/26/2025 8:15 AM EDT GROWTH HORMONE (GH) Routine 04/26/2025 8 :15 AM EDT PROLACTIN Routine 04/26/2025 8:15 AM EDT LH Routine 04/26/2025 8:15 AM EDT FSH Routine 04/26/2025 8:15 AM EDT SEX HORMONE BINDING GLOBULIN Routine 04/26/2025 8:15 AM EDT CHLAMYDIA/TRICHOMONA S/NEISSERIA GONORRHOEAE, PCR, URINE Routine 04/26/2025 8:15 AM EDT TSH Routine 04/26/2025 8:15 AM EDT T4, FREE Routine 04/26/2025 8:15 AM EDT CORTISOL RANDOM Routine 04/26/2025 8:15 AM EDT BASIC METABOLIC PANEL Routine 04/26/2025 8:15 AM EDT OSMOLALITY (SERUM) Routine 04/26/2025 8: 15 AM EDT CBC WITH AUTO DIFFERENTIAL Routine 04/26/2025 8:15 AM EDT Essential hypertension Hypothyroidism (acquired) Fatty liver Mild intermittent asthma without complication Pituitary macroadenoma (CMS/HCC) Chronic daily headache History of ductal carcinoma in situ of breast Endometrial adenocarcinoma (CMS/HCC) Chronic pain of both knees Chronic left shoulder pain Bilateral carpal tunnel syndrome Ulnar neuropathy of both upper extremities Dysphagia, unspecified type Sleep-disordered breathing Paresthesia of both lower extremities Healthcare maintenance Dietary counseling Exercise counseling ALPHA FETOPROTEIN, TUMOR MARKER Routine 04/26/2025 8:15 AM EDT Essential hypertension Hypothyroidism (acquired) Fatty liver Mild intermittent asthma without complication Pituitary macroadenoma (CMS/HCC) Chronic daily headache History of ductal carcinoma in situ of breast Endometrial adenocarcinoma (CMS/HCC) Chronic pain of both knees Chronic left shoulder pain Bilateral carpal tunnel syndrome Ulnar neuropathy of both upper extremities Dysphagia, unspecified type Sleep-disordered breathing Paresthesia of both lower extremities Healthcare maintenance Dietary counseling Exercise counseling HEPATITIS B SURFACE ANTIBODY, QUALITATIVE Routine 04/26/2025 8:15 AM EDT Essential hypertension Hypothyroidism (acquired) Fatty liver Mild intermittent asthma without complication Pituitary macroadenoma (CMS/HCC) Chronic daily headache History of ductal carcinoma in situ of breast Endometrial adenocarcinoma (CMS/HCC) Chronic pain of both knees Chronic left shoulder pain Bilateral carpal tunnel syndrome Ulnar neuropathy of both upper extremities Dysphagia, unspecified type Sleep-disordered breathing Paresthesia of both lower extremities Healthcare maintenance Dietary counseling Exercise counseling RPR (MONITOR) W/REFL TITER Routine 04/26/2025 8:15 AM EDT Essential hypertension Hypothyroidism (acquired) Fatty liver Mild intermittent asthma without complication Pituitary macroadenoma (CMS/HCC) Chronic daily headache History of ductal carcinoma in situ of breast Endometrial adenocarcinoma (CMS/HCC) Chronic pain of both knees Chronic left shoulder pain Bilateral carpal tunnel syndrome Ulnar neuropathy of both upper extremities Dysphagia, unspecified type Sleep-disordered breathing Paresthesia of both lower extremities Healthcare maintenance Dietary counseling Exercise counseling HEPATITIS C AB W/REFL TO HCV RNA, QN, PCR Routine 04/26/2025 8:15 AM EDT Essential hypertension Hypothyroidism (acquired) Fatty liver Mild intermittent asthma without complication Pituitary macroadenoma (CMS/HCC) Chronic daily headache History of ductal carcinoma in situ of breast Endometrial adenocarcinoma (CMS/HCC) Chronic pain of both knees Chronic left shoulder pain Bilateral carpal tunnel syndrome Ulnar neuropathy of both upper extremities Dysphagia, unspecified type Sleep-disordered breathing Paresthesia of both lower extremities Healthcare maintenance Dietary counseling Exercise counseling HIV 1/2 ANTIGEN/ANTIBODY, FOURTH GENERATION W/RFL Routine 04/26/2025 8:15 AM EDT Essential hypertension Hypothyroidism (acquired) Fatty liver Mild intermittent asthma without complication Pituitary macroadenoma (CMS/HCC) Chronic daily headache History of ductal carcinoma in situ of breast Endometrial adenocarcinoma (CMS/HCC) Chronic pain of both knees Chronic left shoulder pain Bilateral carpal tunnel syndrome Ulnar neuropathy of both upper extremities Dysphagia, unspecified type Sleep-disordered breathing Paresthesia of both lower extremities Healthcare maintenance Dietary counseling Exercise counseling HEPATITIS B SURFACE ANTIGEN, EIA Routine 04/26/2025 8:15 AM EDT Essential hypertension Hypothyroidism (acquired) Fatty liver Mild intermittent asthma without complication Pituitary macroadenoma (CMS/HCC) Chronic daily headache History of ductal carcinoma in situ of breast Endometrial adenocarcinoma (CMS/HCC) Chronic pain of both knees Chronic left shoulder pain Bilateral carpal tunnel syndrome Ulnar neuropathy of both upper extremities Dysphagia, unspecified type Sleep-disordered breathing Paresthesia of both lower extremities Healthcare maintenance Dietary counseling Exercise counseling IRON AND TOTAL IRON BINDING CAPACITY Routine 04/26/2025 8:15 AM EDT Essential hypertension Hypothyroidism (acquired) Fatty liver Mild intermittent asthma without complication Pituitary macroadenoma (CMS/HCC) Chronic daily headache History of ductal carcinoma in situ of breast Endometrial adenocarcinoma (CMS/HCC) Chronic pain of both knees Chronic left shoulder pain Bilateral carpal tunnel syndrome Ulnar neuropathy of both upper extremities Dysphagia, unspecified type Sleep-disordered breathing Paresthesia of both lower extremities Healthcare maintenance Dietary counseling Exercise counseling FERRITIN Routine 04/26/2025 8:15 AM EDT Essential hypertension Hypothyroidism (acquired) Fatty liver Mild intermittent asthma without complication Pituitary macroadenoma (CMS/HCC) Chronic daily headache History of ductal carcinoma in situ of breast Endometrial adenocarcinoma (CMS/HCC) Chronic pain of both knees Chronic left shoulder pain Bilateral carpal tunnel syndrome Ulnar neuropathy of both upper extremities Dysphagia, unspecified type Sleep-disordered breathing Paresthesia of both lower extremities Healthcare maintenance Dietary counseling Exercise counseling VITAMIN B12/FOLATE, SERUM PANEL Routine 04/26/2025 8:15 AM EDT Essential hypertension Hypothyroidism (acquired) Fatty liver Mild intermittent asthma without complication Pituitary macroadenoma (CMS/HCC) Chronic daily headache History of ductal carcinoma in situ of breast Endometrial adenocarcinoma (CMS/HCC) Chronic pain of both knees Chronic left shoulder pain Bilateral carpal tunnel syndrome Ulnar neuropathy of both upper extremities Dysphagia, unspecified type Sleep-disordered breathing Paresthesia of both lower extremities Healthcare maintenance Dietary counseling Exercise counseling ALBUMIN, RANDOM URINE W/CREATININE Routine 04/26/2025 8:15 AM EDT Essential hypertension Hypothyroidism (acquired) Fatty liver Mild intermittent asthma without complication Pituitary macroadenoma (CMS/HCC) Chronic daily headache History of ductal carcinoma in situ of breast Endometrial adenocarcinoma (CMS/HCC) Chronic pain of both knees Chronic left shoulder pain Bilateral carpal tunnel syndrome Ulnar neuropathy of both upper extremities Dysphagia, unspecified type Sleep-disordered breathing Paresthesia of both lower extremities Healthcare maintenance Dietary counseling Exercise counseling BASIC METABOLIC PANEL Routine 04/26/2025 8:15 AM EDT Essential hypertension Hypothyroidism (acquired) Fatty liver Mild intermittent asthma without complication Pituitary macroadenoma (CMS/HCC) Chronic daily headache History of ductal carcinoma in situ of breast Endometrial adenocarcinoma (CMS/HCC) Chronic pain of both knees Chronic left shoulder pain Bilateral carpal tunnel syndrome Ulnar neuropathy of both upper extremities Dysphagia, unspecified type Sleep-disordered breathing Paresthesia of both lower extremities Healthcare maintenance Dietary counseling Exercise counseling HEMOGLOBIN A1C Routine 04/26/2025 8:15 AM EDT Essential hypertension Hypothyroidism (acquired) Fatty liver Mild intermittent asthma without complication Pituitary macroadenoma (CMS/HCC) Chronic daily headache History of ductal carcinoma in situ of breast Endometrial adenocarcinoma (CMS/HCC) Chronic pain of both knees Chronic left shoulder pain Bilateral carpal tunnel syndrome Ulnar neuropathy of both upper extremities Dysphagia, unspecified type Sleep-disordered breathing Paresthesia of both lower extremities Healthcare maintenance Dietary counseling Exercise counseling HEPATIC FUNCTION PANEL Routine 04/26/2025 8:15 AM EDT Essential hypertension Hypothyroidism (acquired) Fatty liver Mild intermittent asthma without complication Pituitary macroadenoma (CMS/HCC) Chronic daily headache History of ductal carcinoma in situ of breast Endometrial adenocarcinoma (CMS/HCC) Chronic pain of both knees Chronic left shoulder pain Bilateral carpal tunnel syndrome Ulnar neuropathy of both upper extremities Dysphagia, unspecified type Sleep-disordered breathing Paresthesia of both lower extremities Healthcare maintenance Dietary counseling Exercise counseling TSH Routine 04/26/2025 8:15 AM EDT Essential hypertension Hypothyroidism (acquired) Fatty liver Mild intermittent asthma without complication Pituitary macroadenoma (CMS/HCC) Chronic daily headache History of ductal carcinoma in situ of breast Endometrial adenocarcinoma (CMS/HCC) Chronic pain of both knees Chronic left shoulder pain Bilateral carpal tunnel syndrome Ulnar neuropathy of both upper extremities Dysphagia, unspecified type Sleep-disordered breathing Paresthesia of both lower extremities Healthcare maintenance Dietary counseling Exercise counseling LIPID PANEL, STANDARD Routine 04/26/2025 8:15 AM EDT Essential hypertension Hypothyroidism (acquired) Fatty liver Mild intermittent asthma without complication Pituitary macroadenoma (CMS/HCC) Chronic daily headache History of ductal carcinoma in situ of breast Endometrial adenocarcinoma (CMS/HCC) Chronic pain of both knees Chronic left shoulder pain Bilateral carpal tunnel syndrome Ulnar neuropathy of both upper extremities Dysphagia, unspecified type Sleep-disordered breathing Paresthesia of both lower extremities Healthcare maintenance Dietary counseling Exercise counseling VITAMIN D,25-OH,TOTAL,IA Routine 04/26/2025 8:15 AM EDT Essential hypertension Hypothyroidism (acquired) Fatty liver Mild intermittent asthma without complication Pituitary macroadenoma (CMS/HCC) Chronic daily headache History of ductal carcinoma in situ of breast Endometrial adenocarcinoma (CMS/HCC) Chronic pain of both knees Chronic left shoulder pain Bilateral carpal tunnel syndrome Ulnar neuropathy of both upper extremities Dysphagia, unspecified type Sleep-disordered breathing Paresthesia of both lower extremities Healthcare maintenance Dietary counseling Exercise counseling T4, FREE Routine 04/26/2025 8:15 AM EDT Essential hypertension Hypothyroidism (acquired) Fatty liver Mild intermittent asthma without complication Pituitary macroadenoma (CMS/HCC) Chronic daily headache History of ductal carcinoma in situ of breast Endometrial adenocarcinoma (CMS/HCC) Chronic pain of both knees Chronic left shoulder pain Bilateral carpal tunnel syndrome Ulnar neuropathy of both upper extremities Dysphagia, unspecified type Sleep-disordered breathing Paresthesia of both lower extremities Healthcare maintenance Dietary counseling Exercise counseling XR LUMBAR SPINE COMPLETE 4+ VIEWS Routine 04/24/2025 10:16 AM EDT POCT LINDSEY-14 URINE DRUG SCREEN Routine 04/23/2025 10:09 AM EDT Chronic pain of both knees PANORAMIC RADIOGRAPHIC IMAGE Routine 07/17/2021 12:00 AM EDT PERIODIC ORAL EVALUATION - ESTABLISHED PATIENT Routine 07/17/2021 12:00 AM EDT HM COLONOSCOPY Routine 11/07/2014 3:46 PM EST from Last 3 Months or Most Recently Relevant to Health Maintenance Results * POCT LINDSEY-14 Urine Drug Screen (06/25/2025 9:56 AM EDT) Only the most recent of2 resultswithin the time period is included. THC Negative Negative Cocaine Screen, Urine Negative Negative Opiate Screen, Urine Negative Negative Methamphetamine Screen Urine Negative Negative Amphetamine Screen, Urine Negative Negative Benzodiazepines Screen, Urine Negative Negative Barbiturate Screen, Urine Negative Negative Methadone Screen, Urine Negative Negative Buprenophine Screen, Urine Negative Negative TCA, Urine Positive Negative MDMA Urine Negative Negative ng/mL Oxycodone Screen, Urine Positive Negative Phencyclidine (PCP), Urine Negative Negative Propoxyphene, Urine Negative Negative Fentanyl, Urine Negative Negative Urine Urine specimen obtained by clean catch procedure / Unknown 06/25/2025 9:56 AM EDT Camila Schuler RN - 06/25/2025 9:56 AM EDT UTOX cup Lot#[id number] Exp. 07/09/26 Internal Pass Control us Anna OSPINA POINT OF CARE TEST ENTER/EDIT ORDERABLES Final Result * Chlamydia/Trichomonas/Neisseria gonorrhoeae, PCR, Urine (04/26/2025 8:15 AM EDT) CT PCR, Urine NOT DETECTED Not Detect. [facility] Comment:A not detected test result does not exclude the possibilityof infection because test results can be affected byimproper specimen collection, concurrent antibiotic therapy,or the number of organisms in the specimen which may bebelow the sensitivity of the test. As with many diagnostictests, results from the Xpert CT/NG assay should beinterpreted in conjunction with other laboratory andclinical data available to the clinician.The Xpert CT/NG assay should not be used for the evaluationof suspected sexual abuse or for other medico-legalindications. Additional testing is recommended in anycircumstance when false positive or false negative resultscould lead to adverse medical, social or psychologicalconsequences. NG PCR, Urine NOT DETECTED Not Detect. [facility] Comment:A not detected test result does not exclude the possibilityof infection because test results can be affected byimproper specimen collection, concurrent antibiotic therapy,or the number of organisms in the specimen which may bebelow the sensitivity of the test. As with many diagnostictests, results from the Xpert CT/NG assay should beinterpreted in conjunction with other laboratory andclinical data available to the clinician.The Xpert CT/NG assay should not be used for the evaluationof suspected sexual abuse or for other medico-legalindications. Additional testing is recommended in anycircumstance when false positive or false negative resultscould lead to adverse medical, social or psychologicalconsequences. 04/26/2025 8:15 AM EDT 04/26/2025 11:13 AM EDT us Anushka Figueredo DO LAB URINE ORDERABLES Final R esult [facility] [address] [place] [phone] * Cortisol Random (04/26/2025 8:15 AM EDT) Cortisol Random 13.2 ug/dL [facility] Comment:Reference Range*: Be fore 10 am 6.2-19.4 ug/dL After 5 pm 2.3-11.9 ug/dL*Please interpret above results accordingly.This test was performed using the [employer]ade chemiluminescentmethod. Values obtained from different assay methods cannotbe used interchangeably.Patients receiving fludrocortisone, prednisolone orprednisone may show artificially elevated cortisol valuesdue to cross-reactivity. 04/26/2025 8:15 AM EDT 04/26/2025 11:17 AM EDT us Generic External Data Provider LAB BLOOD ORDERAB LES Final Result [facility] [address] [place] [address], [place] [phone] * Vitamin D, 25-Hydroxy, Total, Immunoassay (04/26/2025 8:15 AM EDT) Vitamin D 25-OH Total 34.2 >30 ng/mL [facility] Comment: Health Based Reference Values*< 20 ng/mL [id number] ng/mL Insufficient> 30 ng/mL Sufficient*Zee HEARD. N Engl J Med. 2007;357:266-280There is no well-established upper level of normal vitamin Dlevels. Some laboratories use 50 ng/mL as an upper limit ofnormal. However, toxicity is patient-dependent and may occurat any level. Careful correlation with the patient'spresentation is necessary and, if there is concern forvitamin D toxicity, treatment should be consideredirrespective of the serum level.Care must be taken in interpreting Vitamin D results fromdifferent laboratories and methodologies. Published datademonstrated that results from patients undergoinghemodialysis may show a negative bias when tested withvarious automated 25-OH vitamin D assays when compared toLC-MS/MS.When testing samples from patients whose predominant form ofVitamin D is Vitamin D2, such as patients receiving VitaminD2 supplementation, results that are subtherapeutic shouldbe confirmed with another method such as LC-MS/MS. Blood Venous blood specimen / Unknown 04/26/2025 8:15 AM EDT 04/26/2025 11:12 AM EDT Anushka Figueredo DO LAB BLOOD ORDERABLES Final R esult Performing Organization Address City/[facility]/ZIP Co de Phone Number [facility] [address] [place] [phone] * Vitamin B12 (Cobalamin) and Folate Panel, Serum (04/26/2025 8:15 AM EDT) Vitamin B12 538 200 - 900 pg/mL [facility] Comment:NORMAL 200-900 PG/ML INDETERMINATE 160-199 PG/ML DEFICIENT < 160 PG/ML Folate 11.2 > or = 4.0 ng/mL [facility] Comment:Reference Values:> o r = 4.0 ng/mL< 4.0 ng/mL suggests folate deficiency Methotrexate, aminopterin and folinic acid(leucovorin) are chemotherapeutic agents whose molecularstructures are similar to folate; therefore, the Architectfolate assay cannot be used for patients using these drugs. Blood 04/26/2025 8:15 AM EDT 04/26/2025 11:12 AM EDT Anushka Figueredo DO LAB BLOOD ORDERABLES Final R esult Performing Organization Address [facility] Co de Phone Number [facility] [address] [place] [phone] * Albumin, Random Urine W/Creatinine (04/26/2025 8:15 AM EDT) Creatinine, Urine 142.17 mg/dL [facility] Microalbumin Urine 10.0 mg/L [facility] Microalbum Creatinine Ratio Ur 7.0 <30 ug/mg cr [facility] Comment:Albumin/Creatinine R atio Reference Ranges: Normal: < 30 ug/mg creatinine Microalbuminuria: 30 - 300 ug/mg creatinineClinical Albuminuria: > 300 ug/mg creatinine Urine (Urine, Random) 04/26/2025 8:15 AM EDT 04/26/2025 11:11 AM EDT us Anushka Figueredo DO LAB URINE ORDERABLES Final R esult Performing Organization Address [facility]/ZIP Co de Phone Number [facility] [address] [place] [address] [phone] * (ABNORMAL) Sex Hormone Binding Globulin (SHBG) (04/26/2025 8:15 AM EDT) Sex Hormone Binding Globulin 75(A) 14 - 73 nmol/L [facility] Comment:THIS TEST WAS PERFOR MED AT:[id number] [place] [id number] FERNANDO MD 04/26/2025 8:15 AM EDT 04/26/2025 11:12 AM EDT us Generic External Data Provider LAB BLOOD ORDERAB LES Final Result Performing Organization Address [facility] Co de Phone Number [facility] [address] [place] [phone] * (ABNORMAL) CBC auto differential (04/26/2025 8:15 AM EDT) White Blood Count 4.7(L) 4.8 - 10.8 X10*3/uL [facility] Red Blood Count 4.38 4.20 - 5.50 X10*6/uL [facility] Hemoglobin 12.2 12.0 - 16.0 g/dl [facility] Hematocrit 39.7 37.0 - 47.0 % [facility] Mean Corpuscular Volume 90.6 80.0 - 98.0 fL [facility] Mean Corpuscular Hemoglobin 27.9 27.0 - 33.0 pg [facility] Mean Corpuscular HGB Conc 30.7(L) 31.0 - 35.0 g/dl [facility] Red Cell Distribution Width 13.9 11.0 - 16.0 % [facility] Platelet Count 263 160 - 400 X10*3/uL [facility] Mean Platelet Volume 10.7 9.4 - 12.3 fL [facility] Neutrophils Percent Auto 63.5 45 - 73 % [facility] Imm Gran Pct Auto 0.2 0.0 - 0.4 % [facility] Lymphocytes Percent Auto 23.6 20 - 40 % [facility] Monocytes Percent Auto 9.3 2 - 11 % [facility] Eosinophils Percent Auto 2.8 0 - 4 % [facility] Basophils Percent Auto 0.6 0 - 2 % [facility] NRBC Pct Auto 0.0 0.0 - 0.2 /100WBC [facility] Neutrophils Absolute Auto 3.0 2.0 - 8.3 x10*3/uL [facility] Imm Gran Abs Auto 0.01 0.00 - 0.03 X10*3/uL [facility] Lymphocytes Absolute Auto 1.1(L) 1.2 - 4.9 X10*3/uL [facility] Monocytes Absolute Auto 0.4 0.1 - 1.2 X10*3/uL [facility] Eosinophils Absolute Auto 0.1 0.0 - 0.4 X10*3/uL [facility] Basophils Absolute Auto 0.0 0.0 - 0.2 X10*3/uL [facility] NRBC Abs Auto 0.000 0.0 - 0.012 X10*3/uL [facility] Blood Venous blood specimen / Unknown 04/26/2025 8:15 AM EDT 04/26/2025 11:12 AM EDT us Anushka Figueredo DO LAB BLOOD ORDERABLES Final R esult [facility] [address] [place] [phone] * Hepatitis C Antibody with Reflex to HCV, RNA, Quantitative, Real-Time PCR (04/26/2025 8:15 AM EDT) Hepatitis C Antibody Nonreactive Nonreactive [facility] Comment:Antibodies to HCV no t detected; does not exclude early acuteHCV infection. Blood Venous blood specimen / Unknown 04/26/2025 8:15 AM EDT 04/26/2025 11:12 AM EDT Anushka Figueredo DO LAB BLOOD ORDERABLES Final R esult Performing Organization Address [facility]/ZIP Co de Phone Number [facility] [address] [place] [phone] * Iron And Total Iron Binding Capacity (04/26/2025 8:15 AM EDT) Iron 74 30 - 160 mcg/dL [facility] Total Iron Binding Capacity 276 228 - 428 mcg/dL [facility] Percent Iron Saturation 27 15 - 50 % [facility] Unsaturated Iron Binding 202 ug/dL [facility] Blood Venous blood specimen / Unknown 04/26/2025 8:15 AM EDT 04/26/2025 11:12 AM EDT Anushka Figueredo LAB BLOOD ORDERABLES Final R esult Performing Organization Address [facility] Co de Phone Number [facility] [address] [place] [phone] * Alpha-Fetoprotein, Tumor Marker (04/26/2025 8:15 AM EDT) Alpha Fetoprotein 2.4 ng/mL [facility] Comment:Reference Range: <6. 1The use of AFP as a tumor marker in females is not recommended.This test was performed using the Kerri Coulterchemiluminescent method. Values obtained fromdifferent assay methods cannot be usedinterchangeably. AFP levels, regardless ofvalue, should not be interpreted as absoluteevidence of the presence or absence of disease.THIS TEST WAS PERFORMED AT:[id number] [place] [phone] FERNANDO MD Blood Venous blood specimen / Unknown 04/26/2025 8:15 AM EDT 04/26/2025 11:17 AM EDT us Anushka Terell DO LAB BLOOD ORDERABLES Final R esult Performing Organization Address [facility] Co de Phone Number [facility] [address] [place] [phone] * Hepatitis B surface antigen, EIA (04/26/2025 8:15 AM EDT) Hepatitis B Surface Ag Negative Negative [facility] Blood Venous blood specimen / Unknown 04/26/2025 8:15 AM EDT 04/26/2025 11:12 AM EDT us Anushka Terell DO LAB BLOOD ORDERABLES Final R esult Performing Organization Address [facility] Phone Number [facility] [address] [place] [phone] * Prolactin (04/26/2025 8:15 AM EDT) Prolactin 7.6 ng/mL [facility] Comment:Reference Range Fema les Non- 3.0-30.0 10.0-209.0 Postmenopausal 2.0-20.0THIS TEST WAS PERFORMED AT:[address] [place] [phone] FERNANDO MD 04/26/2025 8:15 AM EDT 04/26/2025 11:12 AM EDT us Generic External Data Provider LAB BLOOD ORDERAB LES Final Result Performing Organization Address [facility] Co de Phone Number [facility] [address] [place] [phone] * Growth Hormone (GH) (04/26/2025 8:15 AM EDT) Growth Hormone 0.2 < OR = 7.1 ng/mL [facility] Comment: Because of a pulsatile secretion pattern, random(unstimulated) growth hormone (GH) levels arefrequently undetectable in normal children and adultsand are not reliable for diagnosing GH deficiency.Regarding suppression tests, failure to suppress GHis diagnostic of acromegaly.Typical GH response in healthy subjects: Using the glucose tolerance (GH suppression) test, acromegaly is ruled out if the patient's GH level is <1.0 ng/mL at any point in the timed sequence. [Sahra L, Kaya Jr ER, Carlos S, et al. Acromegaly: an Endocrine Society Clinical Practice Guideline. J Clin Endocrinol Metab 2014; 99: 3933- 3951]. Using GH stimulation testing, the following result at any point in the timed sequence makes GH deficiency unlikely: Adults (> or = 20 years): Insulin Hypoglycemia > or = 5.1 ng/mL Arginine/GHRH > or = 4.1 ng/mL Glucagon > or = 3.0 ng/mL Children (< 20 years): All Stimulation Tests > or = 10.0 ng/mLTHIS TEST WAS PERFORMED AT:[address] [place] [phone] FERNANDO MD 04/26/2025 8:15 AM EDT 04/26/2025 11:12 AM EDT us Generic External Data Provider LAB BLOOD ORDERAB LES Final Result [facility] [address] [place] [phone] * Estradiol (04/26/2025 8:15 AM EDT) Estradiol Ultra Sensitive 20 pg/mL [facility] Comment:Female Reference Ran ges for Estradiol, Ultrasensitive (pg/mL): Follicular Phase: 39-375 Luteal Phase: 48-440 Postmenopausal Phase: < or = 10This test was developed and its analytical performancecharacteristics have been determined by [employer].It has not been cleared or approved by the FDA. This assayhas been validated pursuant to the CLIA regulations and isused for clinical purposes.THIS TEST WAS PERFORMED AT:[facility] [id number] [facility] [place] [address]GZLFPASHUTOSH MORALES MD,PHD,ADRIAN 04/26/2025 8:15 AM EDT 04/26/2025 11:12 AM EDT Generic External Data Provider LAB BLOOD ORDERAB LES Final Result Performing Organization Address [facility]/ZIP Co de Phone Number [facility] [address] [place] [phone] * (ABNORMAL) ACTH, Plasma (04/26/2025 8:15 AM EDT) ACTH, Plasma 57(A) 6 - 50 pg/mL [facility] Comment:Reference range appl ies only to specimens collectedbetween 7am-10am.THIS TEST WAS PERFORMED AT:[id number] [place] [address]ZBGXJCRCHACORTA ASHBY MD,PHD 04/26/2025 8:15 AM EDT 04/26/2025 11:17 AM EDT Generic External Data Provider LAB BLOOD ORDERAB LES Final Result Performing Organization Address [facility] Co de Phone Number [facility] [address] [place] [phone] * RPR (Monitor) with Reflex to??Titer (04/26/2025 8:15 AM EDT) RPR (Monitor) w/Refl Titer NON-REACTI VE NON-REACT [facility] Comment:THIS TEST WAS PERFOR MED AT:[facility] [address] [id number] FERNANDO MD Rapid Plasma Reagin Ab Titer TNP [facility] Blood Venous blood specimen / Unknown 04/26/2025 8:15 AM EDT 04/26/2025 11:17 AM EDT us Anushka Figueredo DO LAB BLOOD ORDERABLES Final R esult Performing Organization Address [facility]/ZIP Co de Phone Number [facility] [address] [place] [phone] * HIV-1/2 Antigen and Antibodies, Fourth Generation, with Reflexes (04/26/2025 8:15 AM EDT) HIV AB/AG Nonreactive Nonreactive [facility] Comment:HIV-1 p24 Ag and/or HIV-1/HIV-2 Ab not detected.A test result that is nonreactive does not exclude thepossibility of exposure to or infection with HIV-1 and/orHIV-2. Nonreactive results in this assay for individualswith prior exposure to HIV-1 and/or HIV-2 may be due toantigen and antibody levels that are below the limit ofdetection of this assay.The Escapia HIV Ag/Ab Combo assay result andsupplemental assay results should be interpreted inconjunction with the patient's clinical presentation,history and other laboratory results. If the results areinconsistent with clinical evidence, additional testing issuggested to confirm the result. Blood Venous blood specimen / Unknown 04/26/2025 8:15 AM EDT 04/26/2025 11:12 AM EDT Anushka Terell [employer] LAB BLOOD ORDERABLES Final R esult Performing Organization Address [facility]/ZIP Co de Phone Number [facility] [address] [place] [phone] * Hepatitis B Surface Antibody, Qualitative (04/26/2025 8:15 AM EDT) ~Hepatitis B Surface Antibody NONREACTIVE Nonreactive [facility] Comment:Nonreactive: < 8.00 mIU/mL Blood Venous blood specimen / Unknown 04/26/2025 8:15 AM EDT 04/26/2025 11:12 AM EDT Anushka Jurcsak DO LAB BLOOD ORDERABLES Final R esult Performing Organization Address [facility] de Phone Number [facility] [address] [place] [phone] * TSH (04/26/2025 8:15 AM EDT) Only the most recent of2 resultswithin the time period is included. Thyroid Stimulating Hormone 1.35 0.32 - 4.0 uIU/mL [facility] Comment:TSH 3rd Generation ( [facility]) 04/26/2025 8:15 AM EDT 04/26/2025 11:12 AM EDT us Generic External Data Provider LAB BLOOD ORDERAB LES Final Result Performing Organization Address [facility] de Phone Number [facility] [address] [place] [phone] * T4, Free (04/26/2025 8:15 AM EDT) Only the most recent of2 resultswithin the time period is included. Free T4 (Free Thyroxine) 1.06 0.71 - 1.85 ng/dL [facility] 04/26/2025 8:15 AM EDT 04/26/2025 11:12 AM EDT us Generic External Data Provider LAB BLOOD ORDERAB LES Final Result Performing Organization Address [facility] Co de Phone Number [facility] [address] [place] [phone] * Osmolality, Serum (04/26/2025 8:15 AM EDT) Osmolality (Serum) 297 281 - 305 mosm/kg [facility] 04/26/2025 8:15 AM EDT 04/26/2025 11:12 AM EDT Generic External Data Provider LAB BLOOD ORDERAB LES Final Result Performing Organization Address [facility]/State/ZIP Co de Phone Number [facility] [address] [place] [phone] * Hemoglobin A1c (04/26/2025 8:15 AM EDT) Hemoglobin A1c 5.5 <6.0 % [facility] Comment:Hemoglobin A1C Refer ence Range Adults: 4.8 - 6.0 % Non diabetic: < 6.0 % Goal: < 7.0 %Additional Action Suggested: > 8.0 %Note: Hemoglobin A1c results are invalid for patients with abnormal amounts of HbF. Blood transfusions may impact the HbA1c concentration in the patient sample. Estimated Average Glucose 111 mg/dL [facility] Comment:eAG = Estimated ave rage glucose which is %A1C expressed asaverage glucose, using the formula of the Y1I-EvbnasyDtciyvg Glucose study (ADAG), Diabetes Care, Vol.31,#8,2007 Blood Venous blood specimen / Unknown 04/26/2025 8:15 AM EDT 04/26/2025 11:12 AM EDT us Anushka Figueredo DO LAB BLOOD ORDERABLES Final R esult Performing Organization Address [facility] Co de Phone Number [facility] [address] [place] [phone] * LH (04/26/2025 8:15 AM EDT) Lutenizing Hormone 17.8 mIU/mL [facility] Comment:Reference Range Foll icular Phase 1.9-12.5 Mid-Cycle Peak 8.7-76.3 Luteal Phase 0.5-16.9 Postmenopausal 10.0-54.7THIS TEST WAS PERFORMED AT:[address] [place] [phone] FERNANDO MD 04/26/2025 8:15 AM EDT 04/26/2025 11:12 AM EDT us Generic External Data Provider LAB BLOOD ORDERAB LES Final Result Performing Organization Address [facility] Co de Phone Number [facility] [address] [place] [phone] * FSH (04/26/2025 8:15 AM EDT) Follicle Stimulating Hormone 39.9 mIU/mL [facility] Comment:Reference Range Foll icular Phase 2.5-10.2 Mid-cycle Peak 3.1-17.7 Luteal Phase 1.5- 9.1 Postmenopausal 23.0-116.3THIS TEST WAS PERFORMED AT:[address] [place] [phone] FERNANDO MD 04/26/2025 8:15 AM EDT 04/26/2025 11:12 AM EDT us Generic External Data Provider LAB BLOOD ORDERAB LES Final Result Performing Organization Address [facility] Co de Phone Number [facility] [address] [place] [phone] * Ferritin (04/26/2025 8:15 AM EDT) Pathologist [facility] Ferritin 46 10 - 250 ng/mL [facility] Blood Venous blood specimen / Unknown 04/26/2025 8:15 AM EDT 04/26/2025 11:12 AM EDT us Anushka Figueredo DO LAB BLOOD ORDERABLES Final R esult Performing Organization Address [facility] Co de Phone Number [facility] [address] [place] [phone] * (ABNORMAL) Hepatic Function Panel (04/26/2025 8:15 AM EDT) Bilirubin, Total 0.5 0.0 - 1.0 mg/dL [facility] Bilirubin, Direct 0.2 0.0 - 0.5 mg/dL [facility] Aspartate Amino Transferase 32(H) 5 - 31 U/L [facility] Alanine Aminotransferase 21 0 - 31 U/L [facility] Total Protein 6.8 6.5 - 8.0 g/dL [facility] Albumin Level 4.0 3.5 - 5.0 g/dL [facility] Alkaline Phosphatase 63 39 - 117 U/L [facility] Blood Venous blood specimen / Unknown 04/26/2025 8:15 AM EDT 04/26/2025 11:12 AM EDT us Anushka Figueredo DO LAB BLOOD ORDERABLES Final R esult [facility] [address] [place] [phone] * (ABNORMAL) Lipid Panel, Standard (04/26/2025 8:15 AM EDT) Triglycerides 46 <150 mg/dL [facility] Comment:Desirable Triglyceri de: less than 150 mg/dLBorderline High Triglyceride 150-199 mg/dLHigh Triglyceride: 200-499 mg/dLVery High Triglyceride: greater than or equal to 5OO mg/dL Cholesterol 177 <200 mg/dL [facility] Comment:Desirable Cholestero l: less than 200 mg/dLBorderline High Cholesterol: 200-239 mg/dLHigh Cholesterol: greater than 239 mg/dL LDL Cholesterol Calculated 100(H) <100 mg/dL [facility] Comment:Desirable LDL: less than 100 mg/dLNear Optimal/Above Optimal LDL: 110- 129 mg/dLBorderline High LDL: 130-159 mg/dLHigh LDL: 160-189 mg/dLVery High LDL: greater than or equal to 190 mg/dL HDL Cholesterol 68 >40 mg/dL [facility] Comment:Desirable HDL: great er than 40 mg/dL Note: This HDL assay may give artificially low results in patients with liver disease. Blood Venous blood specimen / Unknown 04/26/2025 8:15 AM EDT 04/26/2025 11:12 AM EDT us Anushka Figueredo DO LAB BLOOD ORDERABLES Final R esult Performing Organization Address [facility] Co de Phone Number [facility] [address] [place] [address] [phone] * (ABNORMAL) Basic Metabolic Panel (04/26/2025 8:15 AM EDT) Only the most recent of2 resultswithin the time period is included. Sodium 142 135 - 145 mmol/L [facility] Potassium 4.1 3.3 - 5.1 mmol/L [facility] Chloride 106 96 - 108 mmol/L [facility] Carbon Dioxide 31(H) 22 - 29 mmol/L [facility] Anion Gap 9(L) 12 - 20 [facility] Urea Nitrogen (BUN) 18(H) 9 - 16 mg/dL [facility] Creatinine, Serum 0.59 0.5 - 1.4 mg/dL [facility] Estimated Glomerular Filt Rate >60 [facility] Comment:Chronic Kidney Disea se: Estimated GFR < 60 mL/min/1.17k3Sctibd Kidney Disease: Estimated GFR < 15 mL/min/1.73m2 Glucose 90 60 - 115 mg/dL [facility] Calcium 9.2 8.4 - 10.2 mg/dL [facility] 04/26/2025 8:15 AM EDT 04/26/2025 11:12 AM EDT us Generic External Data Provider LAB BLOOD ORDERAB LES Final Result Performing Organization Address City/[facility]/ZIP Co de Phone Number [facility] [address] [place] [address] [phone] * XR Lumbar Spine Complete 4+ Views (04/24/2025 10:16 AM EDT) Anatomical Region Laterality Modality Spine, L-spine Radiographic Smita ging 04/24/2025 10:1 6 AM EDT Narrative 04/24/2025 12:33 PM EDT [facility] [address] [place] [address] XRay Report Signed Patient: Gretel Kendall MR#: [id number] : 1960 Acct:[id number] Age/Sex: 64 / F ADM Date: 04/24/25 [facility] Attending Dr: Anushka Figueredo DO Ordering Physician: Ansuhka Figueredo DO Date of Service: 04/24/25 Procedure(s): XR lumbar spine 4V min Accession Number(s): [id number] cc: Anushka Figueredo DO Examination: 5 view L-spine TECHNIQUE: AP, lateral, lateral spot, and bilateral oblique views of the lumbar spine were obtained using x-ray FINDINGS: An IVC filter projects to the right of the mid lumbar spine. There is a staple line in the medial left upper quadrant extending to midline. There are 5 non-rib bearing lumbar segments. Vertebral body height and alignment is preserved. Facet sclerosis and osteophytes are present at L4-5, and L5-S1. Oblique views demonstrates no pars intra-articular is defects. XR/XR lumbar spine 4V min IMPRESSION: Moderate facet arthropathy is evident in the lower lumbar spine. Electronically signed by: Harry Cruz MD 04/24/2025 12:31 PM EDT Dictated By: Harry Cruz MD Signed By: <Electronically signed by Harry Cruz MD in OV> 04/24/25 1231 DD/ 1016 TD/TT: 04/24/25 1030 Fruit Rancher: Procedure Note Donotuseinterpreter, Image - 04/24/2025 [facility] [address] [place] [address] XRay Report Signed Patient: Kendy KendallR#: [id number] : 1960cct:[id number] Age/Sex: 64 / FADM Date: 04/24/25 Loc: HO.[facility] Attending Dr: Anushka Figueredo DO Ordering Physician: Anushka Figueredo DO Date of Service: 04/24/25 Procedure(s): XR lumbar spine 4V min Accession Number(s): [id number] cc: Anushka Figueredo DO Examination: 5 view L-spine TECHNIQUE: AP, lateral, lateral spot, and bilateral oblique views of the lumbar spine were obtained using x-ray FINDINGS: An IVC filter projects to the right of the mid lumbar spine. There is a staple line in the medial left upper quadrant extending to midline. There are 5 non-rib bearing lumbar segments. Vertebral body height and alignment is preserved. Facet sclerosis and osteophytes are present at L4-5, and L5-S1. Oblique views demonstrates no pars intra-articular is defects. XR/XR lumbar spine 4V min IMPRESSION: Moderate facet arthropathy is evident in the lower lumbar spine. Electronically signed by: Harry Cruz MD 04/24/2025 12:31 PM EDT RP Dictated By: Harry Cruz MD Signed By: <Electronically signed by Harry Cruz MD in OV> 04/24/25 1231 DD/ 1016 TD/TT: 04/24/25 1030 Fruit Rancher: Anushka Figueredo DO IMG XR PROCEDURES Final Resu lt * Hm Colonoscopy (11/07/2014 3:46 PM EST) Historical Provider HEALTH MAINTENANCE Final Result from Last 3 Months or Most Recently Relevant to Health Maintenance Insurance [facility] (O D-SNP) Care Teams Electronic Systems Security Assessment Relationship Specialty Start Date End Date Anushka Figueredo DO [address] [place] [id number] PCP - General Family Medicine 10/03/18
--- OUTSIDE RECORDS SUMMARY | 2025-07-03 11:19 | XMS_ITS | Encounter Summary ---
Author Organization [employer] Address [address] [facility] 7t [place] [address] Care Team Providers Care Digital Communications Manager Name Role Phone Anushka Figueredo DO Primary Care Provider Reason for Visit * Reason Onset Date Comments Med Refill 09/25/2024 Encounter Details Date Type Department Care Team ([facility] st Contact Info) Description 09/25/2024 Refill [facility] MEDICINE [address] [place] [address] Anushka Figueredo DO [address] [place] [address] Chronic pain of both knees Social History [...] Description 07/08/2025 9:00 AM EDT Office Visit [facility] OPTOMETRY [address] [place] [address] Fuad, Karon, OD [address] [place] [address] 07/30/2025 9:45 AM EDT Office Visit [facility] MEDICINE [address] [place] [address] documented as of this encounter Visit Diagnoses Diagnosis Chronic pain of both knees documented in this encounter Additional Health Concerns Assessment Noted Time PHQ-9 Depression Total Score: 4 07/24/20 24 9:07 AM EDT documented as of this encounter Care Teams Digital Communications Manager Relationship Specialty Start Date End Date Anushka Figueredo DO [address] [place] [address] PCP - General Family Medicine 10/03/18 documented as of this encounter
--- OUTSIDE RECORDS SUMMARY | 2025-07-03 11:19 | XMS_ITS | Encounter Summary ---
Author Organization [employer] Address [address] [facility] 7t [place] [address] Care Team Providers Care Barrel Liner Name Role Phone RoxannaAnushka lara Primary Care Provider Reason for Visit * Reason Comments Med Refill Encounter Details Date Type Department Care Team (Late st Contact Info) Description 08/03/2023 Refill [facility] MEDICINE [address] [place] [address] Janine Pulido MD [address] [place] [address] Dry eyes Social History Tobacco Use Types [...] Description 07/08/2025 9:00 AM EDT Office Visit [facility] OPTOMETRY [address] [place] [address] Fuad, Karon, OD [address] [place] [address] 07/30/2025 9:45 AM EDT Office Visit [facility] MEDICINE [address] [place] [address] documented as of this encounter Visit Diagnoses Diagnosis Dry eyes Unspecified tear film insufficiency documented in this encounter Additional Health Concerns Assessment Noted Time PHQ-9 Depression Total Score: 0 12/10/19 23 10:17 AM EST documented as of this encounter Care Teams Barrel Liner Relationship Specialty Start Date End Date Anushka Figueredo DO [address] [place] [address] PCP - General Family Medicine 10/03/18 documented as of this encounter
--- OUTSIDE RECORDS SUMMARY | 2025-07-03 11:19 | XMS_ITS | Encounter Summary ---
Author Organization [facility] Address [address] [place] [address] Phone Care Team Providers Care Wardrobe Specialist Name Role Phone Anushka Figueredo DO Primary Care Provider [phone] Encounter Details Date Type Department Care Team (Late st Contact Info) Description 12/28/2022 Procedure [facility], [address] [address] Social History Tobacco Use Types Packs/Day Years [...] on filedocumented in this encounter Care Teams Wardrobe Specialist Relationship Specialty Start Date End Date Anushka Figueredo DO [address] [place] [address] PCP - General Family Medicine 09/17/21 documented as of this encounter Additional Source Comments The information contained in this document represents components of the legal health record. It is not the complete legal health record.[facility]
--- OUTSIDE RECORDS SUMMARY | 2025-07-03 11:19 | XMS_ITS | Encounter Summary ---
Author Organization [employer] Address [address] [facility] 7t [place] [address] Care Team Providers Care Vat Tender Name Role Phone Anushka Figueredo DO Primary Care Provider [phone] Reason for Visit * Reason Onset Date Comments Nurse Triage 07/02/2025 Encounter Details Date Type Department Care Team ([facility] st Contact Info) Description 07/02/2025 Telephone [facility] MEDICINE [address] [place] [address] Anushka Figueredo DO [address] [place] [address] Nurse Triage Social History Tobacco Use Types [...] encounter Miscellaneous Notes * Telephone Encounter - Abigail Sun RN - 07/02/2025 12:33 PM EDT Symptom: Dry Mouth Outcome: Schedule an appointment to be seen within 3 days Reason: Caller denied all higher acuity questions Duration 2x weeks In addition has dizziness and hands are shaky Called pt. She states that she gets dry mouth daily that lasts a couple hours at a time. Pt. [place] and then after a while her mouth gets dry again. Pt. States that she thinks it may be the Gabapentin because in the past before she got her medbox filled , she only would take 1 gabapentin in the am. Now that pt. Is getting medbox, she states that she is now taking Gabapentin 300mg 1 in am and 1 before bed. Pt. Skips the evening dose. Pt. Also states that she gets dizziness and hands get shaky lately. No history. Of Diabetes and hands do not get sweaty. I advised for pt. To come into clinic to discuss symptoms. And see if it is due to the Gabapentin or if something else is going on. Protocol Used: Mouth Symptoms (Adult) Protocol-Based Disposition: See in Office or Video Visit Today- Advised walk in for further work up. Video visit offer not recorded Positive Triage Questions: * Dry mouth and drinking more liquids than usual (thirsty) and present more than 1 day (24 hours) * Dry mouth and new-onset and unexplained (Exceptions: Chronic symptom or dry mouth from mild dehydration.) * All higher-acuity triage questions were negative * Telephone Encounter - Hunter Emilio - 07/02/2025 12:24 PM EDT Symptom: Dry Mouth Outcome: Schedule an appointment to be seen within 3 days Reason: Caller denied all higher acuity questions Duration 2x weeks In addition has dizziness and hands are shaky documented in this encounter Plan of Treatment Upcoming Encounters Date Type Department Care Team (Late st Contact Info) Description 07/08/2025 9:00 AM EDT Office Visit [facility] OPTOMETRY [address] [place] [address] Fuad, Karon, OD [address] [place] [address] 07/30/2025 9:45 AM EDT Office Visit [facility] MEDICINE [address] [place] [address] documented as of this encounter Visit Diagnoses Not on filedocumented in this encounter Additional Health Concerns Assessment Noted Time PHQ-9 Depression Total Score: 4 07/24/20 24 9:07 AM EDT documented as of this encounter Care Teams Vat Tender Relationship Specialty Start Date End Date Anushka Figueredo DO [address] [place] [address] PCP - General Family Medicine 10/03/18 documented as of this encounter
--- OUTSIDE RECORDS SUMMARY | 2025-07-03 11:19 | XMS_ITS | Encounter Summary ---
Author Organization [employer] Address [address] [facility] 7t [place] [address] Care Team Providers Care Pet Caregiver Name Role Phone RoxannaAnushka lara Primary Care Provider [phone] Reason for Visit * Reason Comments Med Refill Encounter Details Date Type Department Care Team (Late st Contact Info) Description 03/19/2024 Refill [facility] MEDICINE [address] [place] [address] Janine Pulido MD [address] [place] [address] Chronic right shoulder pain Social History Tobacco [...] Description 07/08/2025 9:00 AM EDT Office Visit [facility] OPTOMETRY [address] [place] [address] Fuad, Karon, OD [address] [place] [address] 07/30/2025 9:45 AM EDT Office Visit [facility] MEDICINE [address] [place] [address] documented as of this encounter Visit Diagnoses Diagnosis Chronic right shoulder pain Pain in joint, shoulder region documented in this encounter Additional Health Concerns Assessment Noted Time PHQ-9 Depression Total Score: 0 12/10/19 23 10:17 AM EST documented as of this encounter Care Teams Pet Caregiver Relationship Specialty Start Date End Date Anushka Figueredo DO [address] [place] [address] PCP - General Family Medicine 10/03/18 documented as of this encounter
--- OUTSIDE RECORDS SUMMARY | 2025-07-03 11:19 | XMS_ITS | Encounter Summary ---
Author Organization [employer] Address [address] [facility] [address] [place] [address] Care Team Providers Care Powder Coat Painter Name Role Phone Anushka Figueredo DO Primary Care Provider Reason for Visit * Reason Onset Date Comments Appointment Request 09/11/2024 Encounter Details Date Type Department Care Team ([facility] st Contact Info) Description 09/11/2024 Telephone [facility] MEDICINE [address] [place] [address] Anushka Figueredo DO [address] [place] [address] Appointment Request Social History Tobacco Use Types [...] r/s apt for 09/11. Contact pt at [phone] documented in this encounter Plan of Treatment Upcoming Encounters Date Type Department Care Team ([facility] st Contact Info) Description 07/08/2025 9:00 AM EDT Office Visit [facility] OPTOMETRY [address] [place] [address] Fuad, Karon, OD [address] [place] [address] 07/30/2025 9:45 AM EDT Office Visit [facility] MEDICINE [address] [place] [address] documented as of this encounter Visit Diagnoses Not on filedocumented in this encounter Additional Health Concerns Assessment Noted Time PHQ-9 Depression Total Score: 4 07/24/20 24 9:07 AM EDT documented as of this encounter Care Teams Powder Coat Painter Relationship Specialty Start Date End Date Anushka Figueredo DO [address] [place] [address] PCP - General Family Medicine 10/03/18 documented as of this encounter
--- OUTSIDE RECORDS SUMMARY | 2025-07-03 11:19 | XMS_ITS | Encounter Summary ---
Author Organization [employer] Address [address] [facility] [address] 7[address] [place] [address] Care Team Providers Care Cash Person Name Role Phone Anushka Figueredo DO Primary Care Provider Reason for Visit * Reason Comments Med Refill Encounter Details Date Type Department Care Team ([facility] st Contact Info) Description 09/18/2024 Refill [facility] MED & PEDS [address] [place] [address] Anushka Figueredo DO [address] [facility] [place] [address] Chronic pain of both knees Social History [...] Description 07/08/2025 9:00 AM EDT Office Visit [facility] OPTOMETRY [address] [place] [address] Fuad, Karon, OD [address] [place] [address] 07/30/2025 9:45 AM EDT Office Visit [facility] MEDICINE [address] [place] [address] documented as of this encounter Visit Diagnoses Diagnosis Chronic pain of both knees documented in this encounter Additional Health Concerns Assessment Noted Time PHQ-9 Depression Total Score: 4 07/24/20 24 9:07 AM EDT documented as of this encounter Care Teams Cash Person Relationship Specialty Start Date End Date Anushka Figueredo DO [address] [place], [place] [phone] PCP - General Family Medicine 10/03/18 documented as of this encounter
--- OUTSIDE RECORDS SUMMARY | 2025-07-03 11:19 | XMS_ITS | Encounter Summary ---
Author Organization [employer] Address [address] [facility] [address] [place] [address] Care Team Providers Care Film Sound Coordinator Name Role Phone Anushka Figueredo DO Primary Care Provider Encounter Details Date Type Department Care Team ([facility] st Contact Info) Description 12/21/2024 Telephone [facility] MED & PEDS [address] [place], [place] [phone] Anushka Figueredo DO 230 [facility] [place] [address] Social History Tobacco Use Types Packs/Day Years [...] Description 07/08/2025 9:00 AM EDT Office Visit [facility] OPTOMETRY [address] [place] [address] Fuad, Karon, OD [address] [place] [address] 07/30/2025 9:45 AM EDT Office Visit [facility] MEDICINE [address] [place] [address] documented as of this encounter Visit Diagnoses Not on filedocumented in this encounter Additional Health Concerns Assessment Noted Time PHQ-9 Depression Total Score: 4 07/24/20 24 9:07 AM EDT documented as of this encounter Care Teams Film Sound Coordinator Relationship Specialty Start Date End Date Anushka Figueredo DO [address] [place] [address] PCP - General Family Medicine 10/03/18 documented as of this encounter
--- OUTSIDE RECORDS SUMMARY | 2025-07-03 11:19 | XMS_ITS | Encounter Summary ---
Author Organization [employer] Address [address] [facility] [address] 7[address] [place] [address] Care Team Providers Care Polisher Implant Name Role Phone RoxannaAnushka lara Primary Care Provider Reason for Visit * Reason Comments Med Refill Encounter Details Date Type Department Care Team ([facility] st Contact Info) Description 12/21/2024 Refill [facility] [address] [place] [address] Janine Pulido MD [address] [place] [address] Chronic pain of both knees Social History [...] Description 07/08/2025 9:00 AM EDT Office Visit [facility] OPTOMETRY [address] [place] [address] Fuad, Karon, OD [address] [place] [address] 07/30/2025 9:45 AM EDT Office Visit [facility] MEDICINE [address] [place] [address] documented as of this encounter Visit Diagnoses Diagnosis Chronic pain of both knees documented in this encounter Additional Health Concerns Assessment Noted Time PHQ-9 Depression Total Score: 4 07/24/20 24 9:07 AM EDT documented as of this encounter Care Teams Polisher Implant Relationship Specialty Start Date End Date Anushka Figueredo DO [address] [place] [address] PCP - General Family Medicine 10/03/18 documented as of this encounter
--- OUTSIDE RECORDS SUMMARY | 2025-07-03 11:19 | XMS_ITS | Encounter Summary ---
Author Organization [employer] Address [address] [facility] [address] [place] [address] Care Team Providers Care Office Services Coordinator Name Role Phone Anushka Figueredo DO Primary Care Provider Encounter Details Date Type Department Care Team (Late Contact Info) Description 09/10/2022 Telephone [facility] MEDICINE [address] [place] [address] Anushka Figuereod DO 230 [place] [address] Social History Tobacco Use Types Packs/Day Years [...] Encounters Date Type Department Care Team (Late Contact Info) Description 07/08/2025 9:00 AM EDT Office Visit [facility] OPTOMETRY [address] [place] [address] Karon Merida, OD [address] [place] [address] 07/30/2025 9:45 AM EDT Office Visit [facility] MEDICINE [address] [place] [address] documented as of this encounter Visit Diagnoses Not on filedocumented in this encounter Care Teams Office Services Coordinator Relationship Specialty Start Date End Date Anushka Figueredo DO [address] [place] [address] PCP - General Family Medicine 10/03/18 documented as of this encounter
--- OUTSIDE RECORDS SUMMARY | 2025-07-03 11:19 | XMS_ITS | Encounter Summary ---
Author Organization [employer] Address [address] [place] [address] [address] [place] [address] Care Team Providers Care Auto Garage Mechanic Name Role Phone LorenaAnushka mcqueen Primary Care Provider Reason for Visit * Reason Onset Date Comments Med Refill 09/19/2024 Encounter Details Date Type Department Care Team ([facility] st Contact Info) Description 09/19/2024 Refill [facility] MEDICINE [address] [place] [address] Janine Ley MD [address] [place] [address] Social History Tobacco Use Types Packs/Day Years [...] Description 07/08/2025 9:00 AM EDT Office Visit [facility] OPTOMETRY [address] [place] [address] Fuad, Karon, OD [address] [place] [address] 07/30/2025 9:45 AM EDT Office Visit [facility] MEDICINE [address] [place] [address] documented as of this encounter Visit Diagnoses Not on filedocumented in this encounter Additional Health Concerns Assessment Noted Time PHQ-9 Depression Total Score: 4 07/24/20 24 9:07 AM EDT documented as of this encounter Care Teams Auto Garage Mechanic Relationship Specialty Start Date End Date Anushka Figueredo DO [address] [place], [place] [phone] PCP - General Family Medicine 10/03/18 documented as of this encounter
--- OUTSIDE RECORDS SUMMARY | 2025-07-03 11:20 | XMS_ITS | Encounter Summary ---
Author Organization [facility] Address [address] [place] [address] Care Team Providers Care Scouring Pads Supervisor Name Role Phone Pcp, Sara MD Primary Care Provider Crista Hernandez Unavailable [phone] Anushka Figueredo Primary Care Provider [phone] Encounter Details Date Type Department Care Team (Late st Contact Info) Description 10/29/2021 Orders Only [facility] Department of Neurosurgery [address] [place] [address] Ratna Gill PA-C [address] [facility] [place] [address] Social History Tobacco Use Types Packs/Day Years [...] on filedocumented in this encounter Care Teams Scouring Pads Supervisor Relationship Specialty Start Date End Date PcpSara MD [address] [place] [address] PCP - General Internal Medicine 09/18/21 10/29/21 Anushka Figueredo [address] [place] [phone] PCP - General 10/30/21 Crista Gaines MBBS [address] [place] [address] [facility] [place] [address] Consulting Physician Endocrinology 10/09/21 documented as of this encounter
--- OUTSIDE RECORDS SUMMARY | 2025-07-03 11:20 | XMS_ITS | Encounter Summary ---
Author Organization [employer] Address [address] [facility] [address] [place] [address] Care Team Providers Care Fixing Machine Operator Name Role Phone Anushka Figueredo DO Primary Care Provider Reason for Visit * Reason Comments Med Refill Encounter Details Date Type Department Care Team (Late st Contact Info) Description 06/17/2025 Refill [facility] CHC MED & PEDS [address] [place] [address] Anushka Figueredo DO 230 [facility] [place] [address] Chronic pain of both knees Social History [...] Description 07/08/2025 9:00 AM EDT Office Visit [facility] OPTOMETRY [address] [place] [address] Fuad, Karon, OD 230 [place] [address] 07/30/2025 9:45 AM EDT Office Visit [facility] MEDICINE [address] [place] [address] documented as of this encounter Visit Diagnoses Diagnosis Chronic pain of both knees documented in this encounter Additional Health Concerns Assessment Noted Time PHQ-9 Depression Total Score: 4 07/24/20 24 9:07 AM EDT documented as of this encounter Care Teams Fixing Machine Operator Relationship Specialty Start Date End Date Anushka Figueredo DO [address] [place], [place] [phone] PCP - General Family Medicine 10/03/18 documented as of this encounter
--- OUTSIDE RECORDS SUMMARY | 2025-07-03 11:20 | XMS_ITS | Clinical Summary ---
Author Organization [facility] Address [address] [place] [address] Care Team Providers Care General Maintenance Helper Name Role Phone Crista Gaines Unavailable [phone] nAushka Figueredo Primary Care Provider [phone] Allergies No known active allergies Medications acetaminophen [...] tablet by mouth daily. Active PreserVision AREDS-2 [id number] rz-faef-[id number]-mg capsule TAKE 1 CAPSULE BY MOUTH TWICE [...] (09/21/2021 2:31 PM EST): Patient presented to [facility] on 09/16 with headache, double vision, right side ptosis following a knee replacement surgery on September 09. 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 Transferred to [facility] on 09/19 after not improving with [...] (09/20/2021 4:28 PM EST): Patient presented to [facility] on 09/16 with headache, double vision, right side ptosis following a knee replacement surgery on September 09. 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 Transferred to [facility] on 09/19 after not improving with [...] (09/18/2021 9:18 PM EST): Patient presented to [facility] on 09/16 with chief complaint of headache, double vision and right-sided ptosis after she had right knee replacement surgery on September 09. Imaging finding from outside hospital: Head CT [...] brain MRI, and head and neck CTA HTN (hypertension) 09/18/2021 Assessment & Plan (09/19/2021 5:40 PM EST): -Continue home amlodipine 10 mg daily -Continue home lisinopril 30 mg daily Assessment & Plan (09/18/2021 9:16 PM EST): Patient with history of lisinopril 30 mg daily and amlodipine 10 mg daily at home. Blood pressure is currently well controlled. During the admission at [facility] patient required hydralazine for hypertensive urgency. Plan Continue amlodipine 10 mg daily and lisinopril 30 mg daily Continue telemetry monitoring History of right knee joint replacement 09/18/20 Assessment & Plan (09/21/2021 8:51 AM EST): Right knee arthroplasty at [facility] [...] 4:27 PM EST): Right knee arthroplasty at [facility] [...] had regularly replacement on September 09 at [facility]. Per orthopedics recommendation she needs to be on aspirin 325 mg twice daily for a total of 42 days. 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 -Please obtain Ortho consult in the morning. Resolved Problems Problem Noted Date Diagnosed Date Resolved Date COVID-19 09/18/2021 01/22/2025 Assessment & Plan (09/19/2021 5:39 PM EST): [...] Dexamethasone and Remdesivir IF patient becomes hypoxic Social History Tobacco Use Types Packs/Day Years [...] 57 02/11/2022 9:18 AM EDT Temperature 36.3 C (97.3 F) 02/11/2022 9:18 AM EDT Respiratory Rate 18 02/11/2022 9:18 AM EDT [...] Sigmoidoscopy - 5y 1960 HIV Screening 1960 DTaP,Tdap,and Td Vaccines (1 - Tdap) 1976 Pneumococcal Vaccine, 50+ Years (1 of 1 - PCV) 2008 Zoster Vaccines (1 of 2) 2008 Breast Cancer Screening 03/18/2024 03/18/2022, 03/11 COVID-19 Vaccine ( season) 2025 09/21/2022, 11/30/2021, 02/21/2021, Additional history exists Influenza Vaccine (#1) 2025 HPV Vaccines Aged Out No longer [...] this topic Medical Devices Implanted Type Area Load Tallier Device Identifier Shelf Expiration Date Model / Serial / Lot 6fr O.D. Option Vena Cava Filter, Femoral/Jugular Color Coded. Replaces [id number] - [id number] Implanted:Qty: 1 on 09/21/2021 at [facility] Filter [employer] 03/03/2024 [id number] / / [id number] Insurance MEDICARE MANAGED - MISCELLANEOUS Advance Directives For more information, please contact: [phone] * Full Code (Latest Code Status on File) Date Activated Date Inactivated Comments 09/18/2021 7:04 PM 09/22/2021 7:46 PM Care Teams General Maintenance Helper Relationship Specialty Start Date End Date Anushka Figueredo [address] [place] [phone] PCP - General 10/30/21 Crista Gaines MBBS [address] [place] [address] [place] [address] Consulting Physician Endocrinology 10/09/21
--- OUTSIDE RECORDS SUMMARY | 2025-07-03 11:20 | XMS_ITS | Encounter Summary ---
Author Organization [facility] Address [address] [place] [address] Care Team Providers Care Craft Worker Name Role Phone Crista Gaines Unavailable [phone] Anushka Figueredo Primary Care Provider [phone] Reason for Referral * MRI/CAT/PET Scan (Routine) - Closed Specialty Diagnoses / Procedures Referred By Kamilah marcial Referred To Contact Diagnoses Benign neoplasm of pituitary gland (HCC) Procedures MRI brain W WO contrast Ej Badillo PA-C Other Referral ID Status Reason Start Date Expiration Date Visits Requested Visits Authorized [id number] Closed Patient Preference 03/03/2022 07/03/2022 1 1 Encounter Details Date Type Department Care Team (Late st Contact Info) Description 12/07/2021 Orders Only [facility] Department of Neurosurgery [address] [place] [address] Ej Badillo PA-C Benign neoplasm of pituitary [...] (pouch) documented in this encounter Care Teams Craft Worker Relationship Specialty Start Date End Date Anushka Figueredo [address] [place] [phone] PCP - General 10/30/21 Crista Gaines MBBS [address] [place] [address] [place] [address] Consulting Physician Endocrinology 10/09/21 documented as of this encounter
--- OUTSIDE RECORDS SUMMARY | 2025-07-03 11:20 | XMS_ITS | Encounter Summary ---
Author Organization [facility] Address [facility] [address] [place] [address] Phone Care Team Providers Care Merchandiser Retail Representative Name Role Phone LorenaAnushka mcqueen Primary Care Provider [phone] Reason for Visit * Reason Comments Medication Refill Encounter Details Date Type Department Care Team (Late st Contact Info) Description 06/28/2025 Refill [facility] Medical [facility] Specialties [address] [facility], [address] [place] [address] Sherwin Miller MD [facility] [address] [address] [email or web address] Medication Refill Social History Tobacco Use Types Packs/Day Years Used Date Smoking Tobacco: Never Smokeless Tobacco: Never Education Answer Date Recorded Are you interested in more education? Not on osorio e 01/29/2023 Are you concerned about learning? Not on file 01/29/2023 No 01/29/2023 No 01/29/2023 Digital Access Answer Date Recorded No 03/01/2023 No 03/01/2023 Reliable internet access at home? Not on file 03/01/2023 Device with a working camera? Not on file Comments Unknown Sex and Gender Information Value Date Recorded Sex Assigned at Female 04/19/2022 10:43 AM EDT Legal Sex Female 5:00 AM EST Gender Identity Female 04/19/2022 10:43 AM EDT Sexual Orientation Straight 04/19/2022 10 :43 AM EDT documented as of this encounter Progress Notes * Yohan Card - 07/01/2025 11:04 AM EDT Rx Care Gap Status - Instructions for Clinical Staff (prescriber discretion applies): > Mismatch review guide > No future appt: Please schedule if appropriate. > Check PDMP for all controlled medication requests. Visit Info Last visit: 01/03/2025 Sherwin Miller MD - Neurology MGP GEN NEURO WAL > Requested f/u: Not specified Upcoming visit: None ACTIONS TAKEN BY Yohan Card Patient Requested Removal Renewal is at prescriber discretion. Antiepileptic Without Labs Rx Protocol - gabapentin Criteria met; renew for up to 12 months. Visit in the past 14 months: Yes Non-Opioid Controlled Substance With PDMP Rx Protocol - gabapentin Renewal is at prescriber discretion. Visit in the past 12 months: Yes documented in this encounter Plan of Treatment Not on file documented as of this encounter Visit Diagnoses Not on filedocumented in this encounter Care Teams Merchandiser Retail Representative Relationship Specialty Start Date End Date Anushka Figueredo DO [address] [place] [id number] PCP - General Family Medicine 09/17/21 documented as of this encounter Additional Source Comments The information contained in this document represents components of the legal health record. It is not the complete legal health record.[facility]
--- OUTSIDE RECORDS SUMMARY | 2025-07-03 11:20 | XMS_ITS | Encounter Summary ---
Author Organization [facility] Address [address] [place] [address] Care Team Providers Care Gasoline Pump Installer Name Role Phone Crista Gaines Unavailable [phone] Anushka Figueredo Primary Care Provider [phone] Encounter Details Date Type Department Care Team (Late st Contact Info) Description 02/15/2022 Orders Only [facility] Department of Neurosurgery [address] [place] [address] jE Badillo PA-C Pituitary tumor (Primary Dx) Social [...] system documented in this encounter Care Teams Gasoline Pump Installer Relationship Specialty Start Date End Date Anushka Figueredo [address] [place] [phone] PCP - General 10/30/21 Crista Gaines MBBS [address] [place] [address] [place] [address] Consulting Physician Endocrinology 10/09/21 documented as of this encounter
--- OUTSIDE RECORDS SUMMARY | 2025-07-03 11:20 | XMS_ITS | Encounter Summary ---
Author Organization [employer] Address [address] [facility] 7t [place] [address] Care Team Providers Care Laborer Tan House Name Role Phone Anushka Figueredo DO Primary Care Provider Reason for Visit * Reason Comments Med Refill Encounter Details Date Type Department Care Team (Late st Contact Info) Description 12/07/2022 Refill [facility] CHC MED & PEDS [address] [place] [address] Anushka Figueredo DO [address] [facility] [place] [address] Chronic pain of both knees Social History [...] AM EST documented as of this encounter Functional Status * Over the past 2 weeks, how often have you been bothered by any of the following problems? Question Answer Date of Assessment Author Patient Health Questionnaire-2 Score 0 12/09/2022 10:17 AM Kae Irving [place] * Over the past 2 weeks, how often have you been bothered by any of the following problems? Question Answer Date of Assessment Author Little interest or pleasure in doing things Not at all 12/09/2022 10:17 AM Kae Arana MA Feeling down, depressed, or hopeless Not at all 12/09/2022 10:17 AM Kae Arana [place] Trouble falling or staying asleep, or sleeping too much Not at all 12/09/2022 10:17 AM Kae Bermeo MA Feeling tired or having little energy Not at all 12/09/2022 10:17 AM Kae Arana [place] Poor appetite or overeating Not at all 12/09/2022 10 :17 AM Kae Arana MA Feeling bad about yourself - or that you are a failure or have let yourself or your family down Not at all 12/09/2022 10:17 AM Kae Arana MA Trouble concentrating on things, such as reading the newspaper or watching television Not at all 12/09/2022 10:17 AM Kae Arana MA Moving or speaking so slowly that other people could have noticed? Or the opposite - being so fidgety or restless that you have been moving around a lot more than usual. Not at all 12/09/2022 10:17 AM Kae Mcmanus MA Thoughts that you would be better off or hurting yourself in some way Not at all 12/09/2022 10:17 AM Kae Arana MA Patient Health Questionnaire-9 Score 0 12/09/2022 10:17 AM Kae Irving MA documented as of this encounter Miscellaneous Notes * Telephone Encounter - Francie Walshteri Lassiter - 12/15/2022 2:07 PM EDT pt need breezy. from 12/14/2022 documented in this encounter Plan of Treatment Upcoming Encounters Date Type Department Care Team (Late st Contact Info) Description 07/08/2025 9:00 AM EDT Office Visit [facility] OPTOMETRY [address] [place] [address] Karon Merida, OD [address] [place] [address] 07/30/2025 9:45 AM EDT Office Visit [facility] MEDICINE [address] [place] [address] documented as of this encounter Visit Diagnoses Diagnosis Chronic pain of both knees documented in this encounter Additional Health Concerns Assessment Noted Time PHQ-9 Depression Total Score: 0 12/02/19 23 9:55 AM EST documented as of this encounter Care Teams Laborer Tan House Relationship Specialty Start Date End Date Anushka Figueredo DO [address] [place] [address] PCP - General Family Medicine 10/03/18 documented as of this encounter
--- OUTSIDE RECORDS SUMMARY | 2025-07-03 11:20 | XMS_ITS | Clinical Summary ---
Author Organization [facility] Address [address] [place] [address] Phone Care Team Providers Care Irrigator Head Name Role Phone RoxannaAnushka lara Primary Care Provider [phone] Allergies Active Allergy Reactions Criticality Noted Date Comments Bacitracin Zinc-Polymyxin B Rash with Blisters High 09/20/2024 Latex Rash with Blisters High 09/20/2024 Wound Dressings 12/09/2022 Medications albuterol 90 mcg/actuation inhaler Ventolin HFA 90 mcg/actuation aerosol inhaler INHALE 2 PUFFS BY MOUTH EVERY 4 TO 6 HOURS NEEDED Active amLODIPine (NORVASC) 10 MG tablet amlodipine 10 mg tablet TAKE 1 TABLET BY MOUTH EVERY MORNING Active SOLU-CORTEF ACT-O-VIAL, PF, 100 mg/2 mL SolR INJECT 100mg INTRAMUSCULARLY ONCE NEEDED FOR adrenal insufficiency WHEN unable TO TAKE oral medication 022 Active lisinopril (PRINIVIL,ZES TRIL) 30 MG tablet lisinopril 30 mg tablet TAKE 1 TABLET BY MOUTH EVERY MORNING Active nystatin (NYSTOP) powder nystatin 100,000 unit/gram topical powder APPLY TOPICALLY TO AFFECTED AREA(S) TWICE DAILY Active oxyCODONE 5 MG immediate release tablet TAKE 1 TABLET BY MOUTH EVERY 6 HOURS NEEDED FOR SEVERE PAIN Active senna (SENOKOT) 8.6 mg tablet Senna Laxative 8.6 mg tablet TAKE 2 TABLETS BY MOUTH ONCE DAILY IN THE MORNING NEEDED FOR CONSTIPATION Active acetaminophen (TYLENOL) 650 MG CR tablet Take 1 tablet by mouth every 6 (six) hours as needed. 025 Active amitriptyline (ELAVIL) 10 MG tablet Take 10 mg by mouth. Active VITAMIN D3 50 mcg (2,000 unit) capsule Take 2,000 Units by mouth every morning. Active diclofenac sodium (VOLTAREN) 1 % Gel Apply 1 Application topically 2 (two) times a day as needed. Active magnesium aspart,citrat e,oxide (TRIPLE MAGNESIUM COMPLEX) 400 mg magnesium Cap Take 400 mg by mouth. 024 2024 Active PRESERVISION AREDS-2 capsule TAKE 1 CAPSULE BY MOUTH TWICE DAILY IN THE MORNING AND IN THE EVENING Active lidocaine-men thol (ICY HOT) 4-1 % patch Place 1 patch onto the skin daily. 15 patch 2 Active celecoxib (CELEBREX) 200 MG capsule Take 1 capsule (200 mg total) by mouth 2 (two) times a day. 180 capsule 1 025 Active gabapentin (NEURONTIN) 300 MG capsule TAKE 1 CAPSULE BY MOUTH TWICE DAILY IN THE MORNING AND AT NOON and TAKE 2 CAPSULES BY MOUTH EVERY DAY AT BEDTIME 120 capsule 11 025 Active gabapentin (NEURONTIN) 300 MG capsule TAKE 1 CAPSULE BY MOUTH TWICE DAILY IN THE MORNING AND AT NOON and TAKE 2 CAPSULES BY MOUTH EVERY DAY AT BEDTIME 120 capsule 2 025 2024 Discontinued Encounters Date Type Department Care Team Description 06/28/2025 Refill [facility] Medical [facility] Specialties [address] [facility], [address] [place] [address] Sherwin Miller MD Medication Refill 05/16/2025 Refill [facility] Department of Neurology [address] [facility], [address] [place] [address] Kodi Diaz MD from Last 3 Months Social History Tobacco Use Types Packs/Day Years Used Date Smoking Tobacco: Never Smokeless Tobacco: Never Tobacco Cessation:Counseling Given: Not Answered Education Answer Date Recorded Are you interested [...] Orientation Straight 04/19/2022 10 :43 AM EDT Last Filed Vital Signs Vital Sign Reading Time Taken Comments Blood Pressure 148/84 01/03/2025 9:13 AM EDT Pulse 65 01/03/2025 9:13 AM EDT Temperature - - Respiratory Rate - - Oxygen Saturation 99% 01/03/2025 9:13 AM EDT Inhaled Oxygen Concentration - - Weight 107.5 kg (237 lb) 01/03/2025 9:13 AM EDT Height 152.4 cm (5') 11/02/2022 11:43 AM EST Body Mass Index 46.29 11/02/2022 11:43 AM EST Plan of Treatment Health Maintenance Due Date Last Done Comments Adult Td,Tdap Booster 1960 CREATININE LEVEL 1958 POTASSIUM LEVEL 1958 DEPRESSION SCREENING 1970 HEPATITIS C SCREENING 1976 SCREENING FOR DIABETES 1993 COLOGUARD 2003 COLONOSCOPY 2003 COLORECTAL CANCER SCREENING 2003 FIT TEST 2003 FOBT 2003 SIGMOIDOSCOPY 2003 VIRTUAL COLONOSCOPY 2003 PNEUMOCOCCAL VACCINES (50+ years) (1 of 1 - PCV) 2008 ZOSTER VACCINES (1 of 2) 2008 RSV VACCINE (1 - Risk 60-74 years 1-dose series) 2018 OSTEOPOROSIS SCREENING INITI AL (ONE-TIME) 2023 MAMMOGRAM 03/31/2025 03/31/2023 INFLUENZA VACCINE (#1) 2025 COVID-19 VACCINE (1 - 2023-2 5 season) 2025 LIPID PANEL 02/17/2029 02/18/2024, 02/11/2022 SMOKING STATUS SCREENING (On ce After 26 Yrs) Completed 01/03/2025 HEPATITIS A VACCINES Aged Out No long er eligible based on patient's age to complete this topic HIB VACCINES Aged Out No longer eligi ble based on patient's age to complete this topic MENINGOCOCCAL VACCINES (ACWY) Aged Out No longer eligible based on patient's age to complete this topic MENINGOCOCCAL VACCINES (B) Aged Out N o longer eligible based on patient's age to complete this topic Medical Devices Not on file Insurance MEDICARE PART A & B [facility] REPLAC[facility] MEDICARE PART A & B Member Subscriber Plan / Payer (Ef fective 2010-Present) Name:Gretel Kendall Member ID:[id number] Relation to Subscriber:Self Name:Gretel Kendall Subscriber ID:[id number] Payer ID:[id number] Group ID:Not on file Type:Medicare Address: [employer] [address] [place] [phone] [place] [address] MEDICARE REPLACEMENT [place] [id number] MEDICARE PART A & B Member Subscriber Plan / Payer ( fective 2010-Present) Name:Tran Azeb, Gretel Member ID:[id number] Relation to Subscriber:Self Name:Marc StricklandzarroCherryGretel Subscriber ID:[id number] Payer ID:[id number] Group ID:Not on file Type:Medicare Address: [employer] [address] [place] [phone] [place] [address] MEDICARE REPLACEMENT MEDICARE PART A & B [facility] MEDICARE REPLACEMENT MEDICARE PART A & B [facility] MEDICARE REPLACEMENT MEDICARE PART A & B [facility] MEDICARE REPLACEMENT MEDICARE PART A & B MEDICARE REPLACEMENT [place] [facility] MEDICARE PART A & B Member Subscriber Plan / Payer ( fective 2010-Present) Name:Marc StricklandRuthann hoanga Member ID:[id number] Relation to Subscriber:Self Name:Tran AzebCherryGretel Subscriber ID:[id number] Payer ID:[id number] Group ID:Not on file Type:Medicare Address: [employer] [address] [place] [phone] [place] [address] MEDICARE REPLACEMENT MEDICARE PART A & B [facility] MEDICARE REPLACEMENT Care Teams Irrigator Head Relationship Specialty Start Date End Date Anushka Figueredo DO [address] [place] [id number] PCP - General Family Medicine 09/17/21 Additional Source Comments The information contained in this document represents components of the legal health record. It is not the complete legal health record.[facility]
--- OUTSIDE RECORDS SUMMARY | 2025-07-03 11:20 | XMS_ITS | Encounter Summary ---
Author Organization [employer] Address [address] [facility] 7t [place] [address] Care Team Providers Care Fur Grader Name Role Phone Anushka Figueredo DO Primary Care Provider Reason for Visit * Reason Onset Date Comments Med Refill 02/13/2025 Encounter Details Date Type Department Care Team (Late st Contact Info) Description 02/13/2025 Refill [facility] MED & PEDS [address] [place] [address] Anushka Figueredo DO [address] [facility] [place] [place] [address] Chronic pain of both knees Social History [...] 9:00 AM EDT Office Visit [facility] OPTOMETRY [address] [place] [address] Fuad, Karon, OD [address] [place] [address] 07/30/2025 9:45 AM EDT Office Visit [facility] MEDICINE [address] [place] [address] documented as of this encounter Visit Diagnoses Diagnosis Chronic pain of both knees documented in this encounter Additional Health Concerns Assessment Noted Time PHQ-9 Depression Total Score: 4 07/24/20 24 9:07 AM EDT documented as of this encounter Care Teams Fur Grader Relationship Specialty Start Date End Date Anushka Figueredo DO [address] [place] [address] PCP - General Family Medicine 10/03/18 documented as of this encounter
--- OUTSIDE RECORDS SUMMARY | 2025-07-03 11:20 | XMS_ITS | Encounter Summary ---
Author Organization [employer] Address [address] [facility] [address]t [place] [address] Care Team Providers Care Warehouse Order Picker Name Role Phone Anushka Figueredo DO Primary Care Provider Reason for Visit * Reason Comments Med Refill Encounter Details Date Type Department Care Team (Late st Contact Info) Description 06/07/2025 Refill [facility] CHC MED & PEDS [address] [place] [address] Anushka Figueredo DO [address] [facility] [place] [address] Chronic pain of both knees Social History [...] 9:00 AM EDT Office Visit [facility] OPTOMETRY [address] [place] [address] Fuad, Karon, OD [address] [place] [address] 07/30/2025 9:45 AM EDT Office Visit [facility] MEDICINE [address] [place] [address] documented as of this encounter Visit Diagnoses Diagnosis Chronic pain of both knees documented in this encounter Additional Health Concerns Assessment Noted Time PHQ-9 Depression Total Score: 4 07/24/20 24 9:07 AM EDT documented as of this encounter Care Teams Warehouse Order Picker Relationship Specialty Start Date End Date Anushka Figueredo DO [address] [place], [place] [phone] PCP - General Family Medicine 10/03/18 documented as of this encounter
--- OUTSIDE RECORDS SUMMARY | 2025-07-03 11:20 | XMS_ITS | Encounter Summary ---
Author Organization [employer] Address [address] [facility] 7t [place] [address] Care Team Providers Care Automatic Glove Turner And Former Name Role Phone Anushka Figueredo DO Primary Care Provider Reason for Visit * Reason Onset Date Comments Durable Medical Equipment 10/24/2024 Encounter Details Date Type Department Care Team ([facility] st Contact Info) Description 10/24/2024 Telephone [facility] MEDICINE [address] [place] [address] Anushka Figueredo DO [address] [place] [address] Durable Medical Equipment Social History Tobacco Use [...] Nebulizer. IF any questions contact pt at [phone] documented in this encounter Plan of Treatment Upcoming Encounters Date Type Department Care Team ([facility] st Contact Info) Description 07/08/2025 9:00 AM EDT Office Visit [facility] OPTOMETRY [address] [place] [address] Karon Merida, OD [address] [place] [address] 07/30/2025 9:45 AM EDT Office Visit [facility] MEDICINE [address] [place] [address] documented as of this encounter Visit Diagnoses Not on filedocumented in this encounter Additional Health Concerns Assessment Noted Time PHQ-9 Depression Total Score: 4 07/24/20 24 9:07 AM EDT documented as of this encounter Care Teams Automatic Glove Turner And Former Relationship Specialty Start Date End Date Anushka Figueredo DO [address] [place] [address] PCP - General Family Medicine 10/03/18 documented as of this encounter
--- OUTSIDE RECORDS SUMMARY | 2025-07-03 11:20 | XMS_ITS | Encounter Summary ---
Author Organization [employer] Address [address] [place] [address] [address] [place] [address] Care Team Providers Care Emergency Medical Technician Basic Name Role Phone Anushka Figueredo DO Primary Care Provider Reason for Visit * Reason Onset Date Comments Appointment Request 04/11/2023 Encounter Details Date Type Department Care Team ([facility] st Contact Info) Description 04/11/2023 Telephone [facility] MEDICINE [address] [place] [address] Anushka Figueredo DO 230 [place] [address] Appointment Request Social History Tobacco Use Types [...] OV with provider. Please contact pt at [phone] documented in this encounter Plan of Treatment Upcoming Encounters Date Type Department Care Team (Late st Contact Info) Description 07/08/2025 9:00 AM EDT Office Visit [facility] OPTOMETRY [address] [place] [address] Karon Merida, OD [address] [place] [address] 07/30/2025 9:45 AM EDT Office Visit [facility] MEDICINE [address] [place] [address] documented as of this encounter Visit Diagnoses Not on filedocumented in this encounter Additional Health Concerns Assessment Noted Time PHQ-9 Depression Total Score: 0 12/10/19 23 10:17 AM EST documented as of this encounter Care Teams Emergency Medical Technician Basic Relationship Specialty Start Date End Date Anushka Figueredo DO 230 [place], [place] [phone] PCP - General Family Medicine 10/03/18 documented as of this encounter
== END 2025-07-03 10:06 | disposition home or self-care (01) ==
LOC: HO.HHCL 10:05
PROVIDERS: PCP Family Medicine; Visit Provider Nurse Practitioner Family
DX: Z13.89 Encounter for screening for other disorder (principal)

== ENCOUNTER 2025-07-17 08:56 | Outpatient (REF) | payer OTHER, SELFPAY ==
--- OUTSIDE RECORDS SUMMARY | 2025-07-17 09:38 | XMS_ITS | Encounter Summary ---
Author Organization [employer] Address [address] [facility] [address] [address] Care Team Providers Care Fuse Assembler Name Role Phone Anushka Figueredo DO Primary Care Provider Reason for Visit * Reason Onset Date Comments Appointment Request 09/11/2024 Encounter Details Date Type Department Care Team ([facility] st Contact Info) Description 09/11/2024 Telephone [facility] MEDICINE [address] [place] [address] Anushka Figueredo DO 230 [place] [address] Appointment Request Social History Tobacco Use Types [...] r/s apt for 09/11. Contact pt at [phone] documented in this encounter Plan of Treatment Upcoming Encounters Date Type Department Care Team ([facility] st Contact Info) Description 07/30/2025 9:45 AM EDT Office Visit [facility] MEDICINE [address] [place] [address] documented as of this encounter Visit Diagnoses Not on filedocumented in this encounter Additional Health Concerns Assessment Noted Time PHQ-9 Depression Total Score: 4 07/24/20 24 9:07 AM EDT documented as of this encounter Care Teams Fuse Assembler Relationship Specialty Start Date End Date Anushka Figueredo DO 230 [place] [address] PCP - General Family Medicine 10/03/18 documented as of this encounter
--- OUTSIDE RECORDS SUMMARY | 2025-07-17 09:38 | XMS_ITS | Encounter Summary ---
Author Organization [employer] Address [address] [facility] [address] 7[address] [place] [address] Care Team Providers Care Tool Chaser Name Role Phone Terell Anushka Primary Care Provider [phone] Encounter Details Date Type Department Care Team ([facility] st Contact Info) Description 01/12/2024 Orders Only [facility] MEDICINE [address] [place] [address] ProviderSandra MD Social History Tobacco Use Types [...] Care Team (Late st Contact Info) Description 07/30/2025 9:45 AM EDT Office Visit [facility] MEDICINE 230 [place] [address] documented as of this encounter Procedures Procedure [...] documented as of this encounter Care Teams Tool Chaser Relationship Specialty Start Date End Date Anushka Figueredo DO 230 [place] [address] PCP - General Family Medicine 10/03/18 documented as of this encounter
--- OUTSIDE RECORDS SUMMARY | 2025-07-17 09:38 | XMS_ITS | Encounter Summary ---
Author Organization [facility] Address [address] [place] [address] Phone Care Team Providers Care Electrical Equipment Technician Name Role Phone Anushka Figueredo DO Primary Care Provider Encounter Details Date Type Department Care Team (Late st Contact Info) Description 12/28/2022 Procedure Pass [facility], [address] [address] Social History Tobacco Use Types Packs/Day Years [...] on filedocumented in this encounter Care Teams Electrical Equipment Technician Relationship Specialty Start Date End Date Anushka Figueredo DO 230 [place] [address] PCP - General Family Medicine 09/17/21 documented as of this encounter Additional Source Comments The information contained in this document represents components of the legal health record. It is not the complete legal health record.[facility]
--- OUTSIDE RECORDS SUMMARY | 2025-07-17 09:38 | XMS_ITS | Encounter Summary ---
Author Organization [employer] Address [address] [facility] 7t [place] [address] Care Team Providers Care Grinder Hardboard Name Role Phone Anushka Figueredo DO Primary Care Provider Reason for Visit * Reason Onset Date Comments Nurse Triage 08/14/2024 Encounter Details Date Type Department Care Team ([facility] st Contact Info) Description 08/14/2024 Telephone [facility] MEDICINE [address] [place] [address] Anushka Figueredo DO 230 [place] [address] Nurse Triage Social History Tobacco Use Types [...] Description 07/30/2025 9:45 AM EDT Office Visit [facility] MEDICINE [address] [place] [address] documented as of this encounter Visit Diagnoses Not on filedocumented in this encounter Additional Health Concerns Assessment Noted Time PHQ-9 Depression Total Score: 4 07/24/20 24 9:07 AM EDT documented as of this encounter Care Teams Grinder Hardboard Relationship Specialty Start Date End Date Anushka Figueredo DO 230 [place] [address] PCP - General Family Medicine 10/03/18 documented as of this encounter
--- OUTSIDE RECORDS SUMMARY | 2025-07-17 09:38 | XMS_ITS | Encounter Summary ---
Author Organization [employer] Address [address] [facility] [address] [facility] [address] 7[address] [place] [address] Care Team Providers Care Coach Cleaner Name Role Phone RoxannaAnushka lara Primary Care Provider Reason for Visit * Reason Comments Med Refill Encounter Details Date Type Department Care Team ([facility] st Contact Info) Description 12/21/2024 Refill [facility] [address] [place] [address] Janine Pulido MD 230 [place] [address] Chronic pain of both knees Social History [...] Description 07/30/2025 9:45 AM EDT Office Visit [facility] MEDICINE 230 [place] [address] documented as of this encounter Visit Diagnoses Diagnosis Chronic pain of both knees documented in this encounter Additional Health Concerns Assessment Noted Time PHQ-9 Depression Total Score: 4 07/24/20 24 9:07 AM EDT documented as of this encounter Care Teams Coach Cleaner Relationship Specialty Start Date End Date Anushka Figueredo DO 230 [place] [address] PCP - General Family Medicine 10/03/18 documented as of this encounter
--- OUTSIDE RECORDS SUMMARY | 2025-07-17 09:38 | XMS_ITS | Encounter Summary ---
Author Organization [employer] Address [address] [facility] [address] [place] [address] Care Team Providers Care Industrial Designer Name Role Phone Roxannajane Anushka Primary Care Provider Encounter Details Date Type Department Care Team ([facility] st Contact Info) Description 11/30/2024 Orders Only [facility] MEDICINE 230 [place] [address] Colleen Paulson MD 230 [place] [address] Social History Tobacco Use Types Packs/Day Years [...] Description 07/30/2025 9:45 AM EDT Office Visit [facility] MEDICINE 230 [place] [address] documented as of this encounter Visit Diagnoses Not on filedocumented in this encounter Additional Health Concerns Assessment Noted Time PHQ-9 Depression Total Score: 4 07/24/20 24 9:07 AM EDT documented as of this encounter Care Teams Industrial Designer Relationship Specialty Start Date End Date Anushka Figueredo DO [address] [place] [address] PCP - General Family Medicine 10/03/18 documented as of this encounter
--- OUTSIDE RECORDS SUMMARY | 2025-07-17 09:38 | XMS_ITS | Encounter Summary ---
Author Organization [employer] Address [address] [facility] 7t [place] [address] Care Team Providers Care Nuclear Medical Technologist Name Role Phone Anushka Figueredo DO Primary Care Provider Reason for Visit * Reason Comments Med Refill Encounter Details Date Type Department Care Team (Late st Contact Info) Description 08/04/2023 Refill [facility] MEDICINE 230 [place] [address] Anushka Figueredo DO 230 [place] [address] Urinary incontinence, unspecified type Social History Tobacco [...] Description 07/30/2025 9:45 AM EDT Office Visit [facility] MEDICINE 230 [place] [address] documented as of this encounter Visit Diagnoses Diagnosis Urinary incontinence, unspecified type documented in this encounter Additional Health Concerns Assessment Noted Time PHQ-9 Depression Total Score: 0 12/10/19 23 10:17 AM EST documented as of this encounter Care Teams Nuclear Medical Technologist Relationship Specialty Start Date End Date Anushka Figueredo DO [address] [place] [address] PCP - General Family Medicine 10/03/18 documented as of this encounter
--- OUTSIDE RECORDS SUMMARY | 2025-07-17 09:38 | XMS_ITS | Encounter Summary ---
Author Organization [employer] Address [address] [facility] 7t [place] [address] Care Team Providers Care Seed Analyst Name Role Phone RoxannaAnushka lara Primary Care Provider [phone] Reason for Visit * Reason Comments Med Refill Encounter Details Date Type Department Care Team (Late st Contact Info) Description 03/19/[address] [facility] MEDICINE [address] [place] [address] Janine Pulido MD 230 [place] [address] Chronic right shoulder pain Social History Tobacco [...] AM EDT Office Visit [facility] MEDICINE [address] [place] [address] documented as of this encounter Visit Diagnoses Diagnosis Chronic right shoulder pain Pain in joint, shoulder region documented in this encounter Additional Health Concerns Assessment Noted Time PHQ-9 Depression Total Score: 0 12/10/19 23 10:17 AM EST documented as of this encounter Care Teams Seed Analyst Relationship Specialty Start Date End Date Anushka Figueredo DO 230 [place] [address] PCP - General Family Medicine 10/03/18 documented as of this encounter
--- OUTSIDE RECORDS SUMMARY | 2025-07-17 09:38 | XMS_ITS | Encounter Summary ---
Author Organization [employer] Address [address] [facility] 7t [place] [address] Care Team Providers Care Web Marketing Specialist Name Role Phone Anushka Figueredo DO Primary Care Provider Reason for Visit * Reason Onset Date Comments Med Refill 09/25/2024 Encounter Details Date Type Department Care Team ([facility] st Contact Info) Description 09/25/2024 Refill [facility] MEDICINE [address] [place] [address] Anushka Figueredo DO 230 [place] [address] Chronic pain of both knees Social History [...] Description 07/30/2025 9:45 AM EDT Office Visit [facility] MEDICINE [address] [place] [address] documented as of this encounter Visit Diagnoses Diagnosis Chronic pain of both knees documented in this encounter Additional Health Concerns Assessment Noted Time PHQ-9 Depression Total Score: 4 07/24/20 24 9:07 AM EDT documented as of this encounter Care Teams Web Marketing Specialist Relationship Specialty Start Date End Date Anushka Figueredo DO 230 [place] [address] PCP - General Family Medicine 10/03/18 documented as of this encounter
--- OUTSIDE RECORDS SUMMARY | 2025-07-17 09:38 | XMS_ITS | Encounter Summary ---
Author Organization [facility] Address [address] [place] [address] 7[place] [address] Care Team Providers Care Coil Repair Technician Name Role Phone Anushka Figueredo DO Primary Care Provider Encounter Details Date Type Department Care Team (Late st Contact Info) Description 09/10/2022 Telephone [facility] MEDICINE [address] [place] [address] Anushka Figueredo DO [address] [place] [address] Social History Tobacco Use Types Packs/Day Years [...] Description 07/30/2025 9:45 AM EDT Office Visit [facility] MEDICINE [address] [place] [address] documented as of this encounter Visit Diagnoses Not on filedocumented in this encounter Care Teams Coil Repair Technician Relationship Specialty Start Date End Date Anushka Figueredo DO [address] [place] [address] PCP - General Family Medicine 10/03/18 documented as of this encounter
--- OUTSIDE RECORDS SUMMARY | 2025-07-17 09:38 | XMS_ITS | Encounter Summary ---
Author Organization [employer] Address [address] [facility] 7t [place] [address] Care Team Providers Care Manager Organizational Name Role Phone Anushka Figueredo DO Primary Care Provider [phone] Reason for Visit * Reason Onset Date Comments Med Refill 01/16/2025 Encounter Details Date Type Department Care Team ([facility] st Contact Info) Description 01/16/2025 Refill [facility] MED[facility]INE [address] [place] [address] Anushka Figueredo DO 230 [place] [address] Chronic pain of both knees Social History [...] Description 07/30/2025 9:45 AM EDT Office Visit [facility] MEDICINE [address] [place] [address] documented as of this encounter Visit Diagnoses Diagnosis Chronic pain of both knees documented in this encounter Additional Health Concerns Assessment Noted Time PHQ-9 Depression Total Score: 4 07/24/20 24 9:07 AM EDT documented as of this encounter Care Teams Manager Organizational Relationship Specialty Start Date End Date Anushka Figueredo DO 230 [place] [address] PCP - General Family Medicine 10/03/18 documented as of this encounter
--- OUTSIDE RECORDS SUMMARY | 2025-07-17 09:38 | XMS_ITS | Encounter Summary ---
Author Organization [employer] Address [address] [facility] 7t [place] [address] Care Team Providers Care Business Transformation Manager Name Role Phone RoxannaAnushka lara Primary Care Provider Reason for Visit * Reason Comments Med Refill Encounter Details Date Type Department Care Team (Late st Contact Info) Description 08/03/2023 Refill [facility] MEDICINE 230 [place] [address] Janine Pulido MD 230 [place] [address] Dry eyes Social History Tobacco Use Types [...] Description 07/30/2025 9:45 AM EDT Office Visit [facility] MEDICINE 230 [place] [address] documented as of this encounter Visit Diagnoses Diagnosis Dry eyes Unspecified tear film insufficiency documented in this encounter Additional Health Concerns Assessment Noted Time PHQ-9 Depression Total Score: 0 12/10/19 23 10:17 AM EST documented as of this encounter Care Teams Business Transformation Manager Relationship Specialty Start Date End Date Anushka Figueredo DO [address] [place] [address] PCP - General Family Medicine 10/03/18 documented as of this encounter
--- OUTSIDE RECORDS SUMMARY | 2025-07-17 09:38 | XMS_ITS | Encounter Summary ---
Author Organization [employer] Address [address] [facility] [address] 7[address] [place] [address] Care Team Providers Care Curator Horticultural Museum Name Role Phone Anushka Figueredo DO Primary Care Provider [phone] Reason for Visit * Reason Comments Med Refill Encounter Details Date Type Department Care Team ([facility] st Contact Info) Description 09/18/2024 Refill [facility]EDS [address] [place] [address] Anushka Figueredo DO 230 [facility] [place] [place] [address] Chronic pain of both knees Social History [...] is your housing situation today? I have moegingre hall 02/10/[address] you [...] 9:45 AM EDT Office Visit [facility] MEDICINE 230 [place] [address] documented as of this encounter Visit Diagnoses Diagnosis Chronic pain of both knees documented in this encounter Additional Health Concerns Assessment Noted Time PHQ-9 Depression Total Score: 4 07/24/20 24 9:07 AM EDT documented as of this encounter Care Teams Curator Horticultural Museum Relationship Specialty Start Date End Date Anushka Figueredo DO 230 [place] [address] PCP - General Family Medicine 10/03/18 documented as of this encounter
--- OUTSIDE RECORDS SUMMARY | 2025-07-17 09:38 | XMS_ITS | Encounter Summary ---
Author Organization [employer] Address [address] [facility] [address] 7[address] [place] [address] Care Team Providers Care Stove Bottom Worker Name Role Phone Anushka Figueredo DO Primary Care Provider Encounter Details Date Type Department Care Team ([facility] st Contact Info) Description 12/21/2024 Telephone [facility] MED & PEDS [address] [place], [place] [phone] Anushka Figueredo DO 230 [facility] [place] [address] Social History Tobacco Use Types Packs/Day Years [...] Visit [facility] MEDICINE 230 [place] [address] documented as of this encounter Visit Diagnoses Not on filedocumented in this encounter Additional Health Concerns Assessment Noted Time PHQ-9 Depression Total Score: 4 07/24/20 24 9:07 AM EDT documented as of this encounter Care Teams Stove Bottom Worker Relationship Specialty Start Date End Date Anushka Figueredo DO 230 [place] [address] PCP - General Family Medicine 10/03/18 documented as of this encounter
--- OUTSIDE RECORDS SUMMARY | 2025-07-17 09:38 | XMS_ITS | Encounter Summary ---
Author Organization [employer] Address [address] [place] [address] 7 [place] [address] Care Team Providers Care Cyberathlete Name Role Phone LorenaAnushka mcqueen Primary Care Provider Reason for Visit * Reason Onset Date Comments Med Refill 09/19/2024 Encounter Details Date Type Department Care Team ([facility] st Contact Info) Description 09/19/2024 Refill [facility] MEDICINE 230 [place] [address] Janine Ley MD [address] [place] [address] Social History Tobacco Use Types Packs/Day Years [...] Description 07/30/2025 9:45 AM EDT Office Visit [facility] MEDICINE 230 [place] [address] documented as of this encounter Visit Diagnoses Not on filedocumented in this encounter Additional Health Concerns Assessment Noted Time PHQ-9 Depression Total Score: 4 07/24/20 24 9:07 AM EDT documented as of this encounter Care Teams Cyberathlete Relationship Specialty Start Date End Date Anushka Figueredo DO 230 [place] [address] PCP - General Family Medicine 10/03/18 documented as of this encounter
--- OUTSIDE RECORDS SUMMARY | 2025-07-17 09:39 | XMS_ITS | Encounter Summary ---
Author Organization [employer] Address [address] [facility] 7t [place] [address] Care Team Providers Care Pig Machine Operator Helper Name Role Phone Anushka Figueredo DO Primary Care Provider Reason for Visit * Reason Comments Med Refill Encounter Details Date Type Department Care Team (Late st Contact Info) Description 07/16/2025 Refill [facility] MEDICINE 230 [place] [address] Anushka Figueredo DO 230 [place] [address] Chronic pain of both knees Social History [...] 9:45 AM EDT Office Visit [facility] MEDICINE [address] [place] [address] documented as of this encounter Visit Diagnoses Diagnosis Chronic pain of both knees documented in this encounter Additional Health Concerns Assessment Noted Time PHQ-9 Depression Total Score: 4 07/24/20 24 9:07 AM EDT documented as of this encounter Care Teams Pig Machine Operator Helper Relationship Specialty Start Date End Date Anushka Figueredo DO 230 [place] [address] PCP - General Family Medicine 10/03/18 documented as of this encounter
--- OUTSIDE RECORDS SUMMARY | 2025-07-17 09:39 | XMS_ITS | Encounter Summary ---
Author Organization [employer] Address [address] [place] [address] [address] [address] Care Team Providers Care Chain Maker Hand Name Role Phone Anushka Figueredo DO Primary Care Provider Reason for Visit * Reason Onset Date Comments Appointment Request 04/11/2023 Encounter Details Date Type Department Care Team ([facility] st Contact Info) Description 04/11/2023 Telephone [facility] MEDICINE [address] [place] [address] Anushka Figueredo DO [address] [place] [address] Appointment Request Social History Tobacco Use Types [...] OV with provider. Please contact pt at [phone] documented in this encounter Plan of Treatment Upcoming Encounters Date Type Department Care Team (Late st Contact Info) Description 07/30/2025 9:45 AM EDT Office Visit [facility] MEDICINE [address] [place] [address] documented as of this encounter Visit Diagnoses Not on filedocumented in this encounter Additional Health Concerns Assessment Noted Time PHQ-9 Depression Total Score: 0 12/10/19 23 10:17 AM EST documented as of this encounter Care Teams Chain Maker Hand Relationship Specialty Start Date End Date Anushka Figueredo DO [address] [place] [address] PCP - General Family Medicine 10/03/18 documented as of this encounter
--- OUTSIDE RECORDS SUMMARY | 2025-07-17 09:39 | XMS_ITS | Encounter Summary ---
Author Organization [employer] Address [address] [facility] 7t [place] [address] Care Team Providers Care Telephone Operator Chief Name Role Phone Anushka Figueredo DO Primary Care Provider Reason for Visit * Reason Onset Date Comments Durable Medical Equipment 10/24/2024 Encounter Details Date Type Department Care Team ([facility] st Contact Info) Description 10/24/2024 Telephone [facility] MEDICINE [address] [place] [address] Anushka Figueredo DO [address] [place] [address] Durable Medical Equipment Social History Tobacco Use [...] Nebulizer. IF any questions contact pt at [phone] documented in this encounter Plan of Treatment Upcoming Encounters Date Type Department Care Team (Late st Contact Info) Description 07/30/2025 9:45 AM EDT Office Visit [facility] MEDICINE [address] [place] [address] documented as of this encounter Visit Diagnoses Not on filedocumented in this encounter Additional Health Concerns Assessment Noted Time PHQ-9 Depression Total Score: 4 07/24/20 24 9:07 AM EDT documented as of this encounter Care Teams Telephone Operator Chief Relationship Specialty Start Date End Date Anushka Figueredo DO [address] [place] [address] PCP - General Family Medicine 10/03/18 documented as of this encounter
--- OUTSIDE RECORDS SUMMARY | 2025-07-17 09:39 | XMS_ITS | Encounter Summary ---
Author Organization [facility] Address [address] [place] [address] Care Team Providers Care Telephone Sales Agent Name Role Phone Crista Gaines Unavailable [phone] Anushka Figueredo Primary Care Provider [phone] Encounter Details Date Type Department Care Team (Late st Contact Info) Description 02/15/2022 Orders Only [facility] Department of Neurosurgery [address] [place] [address] Ej Badillo PA-C Pituitary tumor (Primary Dx) [...] system documented in this encounter Care Teams Telephone Sales Agent Relationship Specialty Start Date End Date Anushka Figueredo [address] [place] [phone] PCP - General 10/30/21 Crista Gaines MBBS [address] [place] [address] [place] [address] Consulting Physician Endocrinology 10/09/21 documented as of this encounter
--- OUTSIDE RECORDS SUMMARY | 2025-07-17 09:39 | XMS_ITS | Encounter Summary ---
Author Organization [employer] Address [address] [facility] [address] [place] [address] Care Team Providers Care Recycling Assistant Name Role Phone Anushka Figueredo DO Primary Care Provider Reason for Visit * Reason Comments Med Refill Encounter Details Date Type Department Care Team (Late st Contact Info) Description 12/07/2022 Refill [facility] [address] [place] [address] Anushka Figueredo DO [address] [facility] [place] [address] Chronic pain of both knees Social History [...] Not at all 12/09/2022 10:17 AM Kae rAana [place] Trouble falling or staying asleep, or [...] Description 07/30/2025 9:45 AM EDT Office Visit [facility] [address] [place] [address] documented as of this encounter Visit Diagnoses Diagnosis Chronic pain of both knees documented in this encounter Additional Health Concerns Assessment Noted Time PHQ-9 Depression Total Score: 0 12/02/19 23 9:55 AM EST documented as of this encounter Care Teams Recycling Assistant Relationship Specialty Start Date End Date Anushka Figueredo DO [address] [place] [address] PCP - General Family Medicine 10/03/18 documented as of this encounter
--- OUTSIDE RECORDS SUMMARY | 2025-07-17 09:39 | XMS_ITS | Encounter Summary ---
Author Organization [facility] Address [address] [place] [address] Care Team Providers Care Window Shade Cloth Sewer Name Role Phone Pcp, Sara MD Primary Care Provider Crista Hernandez Unavailable [phone] Anushka Figueredo Primary Care Provider [phone] Encounter Details Date Type Department Care Team (Late st Contact Info) Description 10/29/2021 Orders Only [facility] Department of Neurosurgery [address] [place] [address] Ratna Gill PA-C [address] [facility] [place] [address] Social History Tobacco Use Types Packs/Day Years [...] on filedocumented in this encounter Care Teams Window Shade Cloth Sewer Relationship Specialty Start Date End Date PcpSara MD [address] [place] [address] PCP - General Internal Medicine 09/18/21 10/29/21 Anushka Figueredo [address] [place] [id number] PCP - General 10/30/21 Crista Gaines MBBS [address] [place] [address] [facility] [place] [address] Consulting Physician Endocrinology 10/09/21 documented as of this encounter
--- OUTSIDE RECORDS SUMMARY | 2025-07-17 09:39 | XMS_ITS | Clinical Summary ---
Author Organization [facility] Address [address] [place] [address] Care Team Providers Care Supervisor Coremaker Name Role Phone Crista Gaines Unavailable [phone] Anushka Figueredo Primary Care Provider [phone] Allergies No known active allergies Medications acetaminophen [...] tablet by mouth daily. Active PreserVision AREDS-2 [id number] xk-likj-wj-mg capsule TAKE 1 CAPSULE BY MOUTH TWICE [...] (09/21/2021 2:31 PM EST): Patient presented to [facility] on 09/16 with headache, double vision, right side ptosis following a knee replacement surgery on September 09. 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 Transferred to [facility] on 09/19 after not improving with [...] (09/20/2021 4:28 PM EST): Patient presented to [facility] on 09/16 with headache, double vision, right side ptosis following a knee replacement surgery on September 09. 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 Transferred to [facility] on 09/19 after not improving with [...] (09/18/2021 9:18 PM EST): Patient presented to [facility] on 09/16 with chief complaint of [...] currently well controlled. During the admission at [facility] patient required hydralazine for hypertensive urgency. Plan Continue amlodipine 10 mg daily and lisinopril 30 mg daily Continue telemetry monitoring History of right knee joint replacement 09/18/20 Assessment & Plan (09/21/2021 8:51 AM EST): Right knee arthroplasty at [facility] on September 09. Discharged home on [...] 4:27 PM EST): Right knee arthroplasty at [facility] on September 09. Discharged home on [...] had regularly replacement on September 09 at [facility]. Per orthopedics recommendation she needs to [...] this topic Medical Devices Implanted Type Area Rural Electrification Engineer Device Identifier Shelf Expiration Date Model / Serial / Lot 6fr O.D. Option Vena Cava Filter, Femoral/Jugular Color Coded. Replaces [id number] - [id number] Implanted:Qty: 1 on 09/21/2021 at [facility] Filter [employer] 03/03/2024 [id number] / / [id number] Insurance MEDICARE MANAGED - MISCELLANEOUS Advance Directives For more information, please contact: [phone] * Full Code (Latest Code Status on File) Date Activated Date Inactivated Comments 09/18/2021 7:04 PM 09/22/2021 7:46 PM Care Teams Supervisor Coremaker Relationship Specialty Start Date End Date Anushka Figueredo [address] [place] [phone] PCP - General 10/30/21 Crista Gaines MBBS [address] [place] [address] [place] [address] Consulting Physician Endocrinology 10/09/21
--- OUTSIDE RECORDS SUMMARY | 2025-07-17 09:39 | XMS_ITS | Encounter Summary ---
Author Organization [employer] Address [address] [facility] [address] [place] [address] Care Team Providers Care Plc Engineer Name Role Phone Anushka Figueredo DO Primary Care Provider [phone] Reason for Visit * Reason Comments Med Refill Encounter Details Date Type Department Care Team (Late st Contact Info) Description 06/07/2025 Refill [facility] [address] [place] [address] Anushka Figueredo DO [address] [facility] [place] [address] Chronic pain of both knees Social History [...] Description 07/30/2025 9:45 AM EDT Office Visit [facility] [address] [place] [address] documented as of this encounter Visit Diagnoses Diagnosis Chronic pain of both knees documented in this encounter Additional Health Concerns Assessment Noted Time PHQ-9 Depression Total Score: 4 07/24/20 24 9:07 AM EDT documented as of this encounter Care Teams Plc Engineer Relationship Specialty Start Date End Date Anushka Figueredo DO [address] [place] [address] PCP - General Family Medicine 10/03/18 documented as of this encounter
--- OUTSIDE RECORDS SUMMARY | 2025-07-17 09:39 | XMS_ITS | Clinical Summary ---
Author Organization [employer] Address [address] [place] [address] [address] [place] [address] Care Team Providers Care Automotive Teacher Name Role Phone RoxannaAnushka lara Primary Care Provider Allergies Active Allergy Reactions [...] NEEDED FOR PAIN 60 tablet 025 Active amitriptyline (Elavil) 50 MG tablet TAKE 1 TABLET BY MOUTH AT BEDTIME 30 tablet 5 Active loratadine (Claritin) 10 MG tabletIndications :Chronic allergic rhinitis TAKE 1 TABLET BY MOUTH EVERY MORNING 30 tablet 5 Active D3 Super Strength 50 MCG (2000 UT) capsule TAKE 1 CAPSULE BY MOUTH EVERY MORNING 30 capsule 11 Active cholecalciferol (Vitamin D-3) 50 MCG (2000 UT) capsule Take 1 capsule (50 mcg) by mouth Once per day. 30 capsule 11 024 2024 Discontinued amitriptyline (Elavil) 50 MG tablet TAKE 1 TABLET BY MOUTH AT BEDTIME 30 tablet 5 025 2024 Discontinued loratadine (Claritin) 10 MG tabletIndications :Chronic allergic rhinitis TAKE 1 TABLET BY MOUTH EVERY MORNING 30 tablet 5 025 2024 Discontinued oxyCODONE (Roxicodone) 5 MG immediate release tabletIndications :Chronic pain of both knees Take 1 tablet (5 mg) by mouth every 6 (six) hours if needed for severe pain for up to 28 days. 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 Figueredo Tier: II (visits Q3 months) - last eval by PCP Nov 2024 Assessment & Plan (06/25/2025 1:13 PM EDT): Timeline: - 10/16/24: [employer] ENGINE ASSEMBL[employer] Renewal. Group visit, utox/pill count WNL - 01/22/25: Group visit, utox/pill count WNL - 02/26/25: Group visit, utox/pill count as expected - 03/26/25: Group visit, utox/pill count as expected - 04/23/25: Group visit, utox/pill count as expected - 06/25/25: Group Visit, utox/pill count as expected Assessment & Plan (04/23/2025 1:17 PM EDT): Timeline: - 10/16/24: TR[employer] ENGINE ASSEMBLER Renewal. Group visit, utox/pill count WNL - 01/22/25: Group visit, utox/pill count WNL - 02/26/25: Group visit, utox/pill count as expected - 03/26/25: Group visit, utox/pill count as expected - 04/23/25: Group visit, utox/pill count as expected Assessment & Plan (03/26/2025 1:30 PM EDT): Timeline: - 10/16/24: [employer]INE ASSEMBL[employer] Renewal. Group visit, utox/pill count WNL - 01/22/25: Group visit, utox/pill count WNL - 02/26/25: Group visit, utox/pill count as expected - 03/26/25: Group visit, utox/pill count as expected Assessment & Plan (02/26/2025 1:10 PM EDT): Timeline: - 10/16/24: [employer] ENGINE [employer]SEM[employer] Renewal. Group visit, utox/pill count WNL - 01/22/25: Group visit, utox/pill count WNL - 02/26/25: Group visit (forgot some pills at home, see engineering documentation specialist). Utox as expected Assessment & Plan (10/16/2024 1:37 PM EST): Timeline: - 10/16/24: TRUCK ENGINE ASSEMBL[employer] Renewal. Group visit, utox/pill count WNL Assessment [...] Last Assessment & Plan: Patient presented to [facility] on 09/16 with headache, double vision, right side ptosis following a knee replacement surgery on September 09. 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 Transferred to [facility] on 09/19 after not improving with [...] Assessment & Plan: Right knee arthroplasty at [facility] on September 09. Discharged home on [...] in situ of breast BMI 40.0-44.9, adult ([facility]) 08/18/2015 Osteoarthritis 08/18/2015 Overview (10/16/2024): Xray February [...] organization. Date Type Department Care Team Description 07/16/2025 Refill [facility] [address] [place] [address] Anushka Figueredo DO Chronic pain of both knees 07/08/2025 9:00 AM EDT Office Visit [facility] OPTOMETRY [address] [place] [address] Fuad, Karon, OD Pituitary macroadenoma (CMS/HCC) (HCC) (Primary Dx) 07/08/2025 Travel 07/03/2025 9:00 AM EDT Office Visit [address] [address] Megha Lynch NP Benign paroxysmal positional vertigo due to bilateral vestibular disorder (Primary Dx) 07/02/[address] [address] Anushka Figueredo DO Nurse Triage 06/25/2025 9:45 AM EDT Office Visit [address] [address] Anna Elizabeth FNP Osteoarthritis, unspecified osteoarthritis type, unspecified site (Primary Dx); Long-term current use of opiate analgesic 06/25/2025 Travel 06/23/[address] [address] Anushka Figueredo DO Chronic allergic rhinitis 06/17/2025 Refill [facility] [address] [place] [address] Anushka Figueredo DO Chronic pain of both knees 06/14/2025 Refill [facility] [address] [place] [address] Anushka Figueredo DO Chronic pain of both knees 06/07/2025 Refill [facility] [address] [place] [address] Anushka Figueredo DO Chronic pain of both knees 05/16/2025 Refill [facility] [address] [place] [address] Anushka Figueredo DO Chronic pain of both knees 05/07/2025 Refill [facility] [address] [place] [phone] JeniferKaylie FNP 04/26/2025 Orders Only GENERIC EXTERNAL DATA DEPARTMENT Provider, Generic External Data 04/24/2025 10:00 AM EDT Office Visit [address] [address] Anushka Figueredo DO Essential hypertension (Primary Dx); [...] Travel 04/23/2025 9:45 AM EDT Office Visit [facility] [address] [place] [phone] Anna Elizabeth FNP Osteoarthritis, unspecified osteoarthritis type, unspecified site (Primary Dx); Chronic pain of both knees; Long-term current use of opiate analgesic 04/23/2025 Travel 04/19/[address] [address] Anushka Figueredo DO Chart Prep 04/16/2025 Patient Outreach [address] [address] Anushka Figueredo DO Pre-visit Planning (SDOH screening completed on 10/19/24) from Last 3 Months Immunizations Immunization Administration [...] 9:45 AM EDT Office Visit [facility] [address] [place] [phone] Health Maintenance Due Date Last Done Comments [...] - 06/25/2025 9:56 AM EDT UTOX cup Lot#[id number] Exp. 07/09/26 Internal Pass Control Anna Elizabeth [facility] POINT OF CARE TEST ENTER/EDIT ORDERABLES Final Result * Chlamydia/Trichomonas/Neisseria gonorrhoeae, PCR, Urine (04/26/2025 8:15 AM EDT) CT PCR, Urine NOT DETECTED Not Detect. [facility] Comment:A not detected test result does [...] NG PCR, Urine NOT DETECTED Not Detect. [facility] Comment:A not detected test result does [...] DO LAB URINE ORDERABLES Final R esult [facility] [address] [place] [phone] * Cortisol Random (04/26/2025 8:15 AM EDT) Cortisol Random 13.2 ug/dL [facility] Comment:Reference Range*: Be fore 10 am 6.2-19.4 ug/dL After 5 pm 2.3-11.9 ug/dL*Please interpret above results accordingly.This test was performed using the SmartKickz chemiluminescentmethod. Values obtained from different assay methods cannotbe used interchangeably.Patients receiving fludrocortisone, prednisolone orprednisone may show artificially elevated cortisol valuesdue to cross-reactivity. 04/26/2025 8:15 AM EDT 04/26/2025 11:17 AM EDT us Generic External Data Provider LAB BLOOD ORDERAB LES Final Result Performing Organization Address City/[facility]/ZIP Co de Phone Number [facility] [address] [place] [phone] * Vitamin D, 25-Hydroxy, Total, Immunoassay (04/26/2025 8:15 AM EDT) Vitamin D 25-OH Total 34.2 >30 ng/mL [facility] Comment: Health Based Reference Values*< 20 ng/mL [id number] ng/mL Insufficient> 30 ng/mL Sufficient*Zee HEARD. N [...] ORDERABLES Final R esult Performing Organization Address City/[facility]/ZIP Co de Phone Number [facility] [address] [place] [phone] * Vitamin B12 (Cobalamin) and Folate Panel, Serum (04/26/2025 8:15 AM EDT) Vitamin B12 538 200 - 900 pg/mL [facility] Comment:NORMAL 200-900 PG/ML INDETERMINATE 160-199 PG/ML DEFICIENT < 160 PG/ML Folate 11.2 > or = 4.0 ng/mL [facility] Comment:Reference Values:> o r = 4.0 ng/mL< 4.0 ng/mL suggests folate deficiency Methotrexate, aminopterin and folinic acid(leucovorin) are chemotherapeutic agents whose molecularstructures are similar to folate; therefore, the Architectfolate assay cannot be used for patients using these drugs. Blood 04/26/2025 8:15 AM EDT 04/26/2025 11:12 AM EDT Anushka Figueredo DO LAB BLOOD ORDERABLES Final R esult Performing Organization Address [facility] Co de Phone Number [facility] [address] [place] [phone] * Albumin, Random Urine W/Creatinine (04/26/2025 8:15 AM EDT) Creatinine, Urine 142.17 mg/dL [facility] Microalbumin Urine 10.0 mg/L [facility] Microalbum Creatinine Ratio Ur 7.0 <30 ug/mg cr [facility] Comment:Albumin/Creatinine R atio Reference Ranges: Normal: < 30 ug/mg creatinine Microalbuminuria: 30 - 300 ug/mg creatinineClinical Albuminuria: > 300 ug/mg creatinine Urine (Urine, Random) 04/26/2025 8:15 AM EDT 04/26/2025 11:11 AM EDT Anushka Figueredo DO LAB URINE ORDERABLES Final R esult Performing Organization Address City/[facility]/ZIP Co de Phone Number [facility] [address] [place] [phone] * (ABNORMAL) Sex Hormone Binding Globulin (SHBG) (04/26/2025 8:15 AM EDT) Sex Hormone Binding Globulin 75(A) 14 - 73 nmol/L [facility] Comment:THIS TEST WAS PERFOR MED AT:[employer] [place] [phone] FERNANDO MD 04/26/2025 8:15 AM EDT 04/26/2025 11:12 AM EDT us Generic External Data Provider LAB BLOOD ORDERAB LES Final Result [facility] [address] [place] [phone] [phone] * (ABNORMAL) CBC auto differential (04/26/2025 8:15 AM EDT) White Blood Count 4.7(L) 4.8 - 10.8 X10*3/uL [facility] Red Blood Count 4.38 4.20 - 5.50 X10*6/uL [facility] Hemoglobin 12.2 12.0 - 16.0 g/dl [facility] Hematocrit 39.7 37.0 - 47.0 % [facility] Mean Corpuscular Volume 90.6 80.0 - 98.0 fL [facility] Mean Corpuscular Hemoglobin 27.9 27.0 - 33.0 pg [facility] Mean Corpuscular HGB Conc 30.7(L) 31.0 - 35.0 g/dl [facility] Red Cell Distribution Width 13.9 11.0 - 16.0 % [facility] Platelet Count 263 160 - 400 X10*3/uL [facility] Mean Platelet Volume 10.7 9.4 - 12.3 fL [facility] Neutrophils Percent Auto 63.5 45 - 73 % [facility] Imm Gran Pct Auto 0.2 0.0 - 0.4 % [facility] Lymphocytes Percent Auto 23.6 20 - 40 % [facility] Monocytes Percent Auto 9.3 2 - 11 % [facility] Eosinophils Percent Auto 2.8 0 - 4 % [facility] Basophils Percent Auto 0.6 0 - 2 % [facility] NRBC Pct Auto 0.0 0.0 - 0.2 /100WBC [facility] Neutrophils Absolute Auto 3.0 2.0 - 8.3 x10*3/uL [facility] Imm Gran Abs Auto 0.01 0.00 - 0.03 X10*3/uL [facility] Lymphocytes Absolute Auto 1.1(L) 1.2 - 4.9 X10*3/uL [facility] Monocytes Absolute Auto 0.4 0.1 - 1.2 X10*3/uL [facility] Eosinophils Absolute Auto 0.1 0.0 - 0.4 X10*3/uL [facility] Basophils Absolute Auto 0.0 0.0 - 0.2 X10*3/uL [facility] NRBC Abs Auto 0.000 0.0 - 0.012 X10*3/uL [facility] Blood Venous blood specimen / Unknown 04/26/2025 8:15 AM EDT 04/26/2025 11:12 AM EDT Anushka Mcknighthi [employer] LAB BLOOD ORDERABLES Final R esult Performing Organization Address [facility] de Phone Number [facility] [address] [place] [phone] * Hepatitis C Antibody with Reflex to HCV, RNA, Quantitative, Real-Time PCR (04/26/2025 8:15 AM EDT) Hepatitis C Antibody Nonreactive Nonreactive [facility] Comment:Antibodies to HCV no t detected; does not exclude early acuteHCV infection. Blood Venous blood specimen / Unknown 04/26/2025 8:15 AM EDT 04/26/2025 11:12 AM EDT Anushka [employer] LAB BLOOD ORDERABLES Final R esult Performing Organization Address [facility]/ZIP Co de Phone Number [facility] [address] [place] [phone] * Iron And Total Iron Binding Capacity (04/26/2025 8:15 AM EDT) Pathologist [facility] Iron 74 30 - 160 mcg/dL [facility] Total Iron Binding Capacity 276 228 - 428 mcg/dL [facility] Percent Iron Saturation 27 15 - 50 % [facility] Unsaturated Iron Binding 202 ug/dL [facility] Blood Venous blood specimen / Unknown 04/26/2025 8:15 AM EDT 04/26/2025 11:12 AM EDT Anushka Terell LAB BLOOD ORDERABLES Final R esult Performing Organization Address [facility] Co de Phone Number [facility] [address] [place] [phone] * Alpha-Fetoprotein, Tumor Marker (04/26/2025 8:15 AM EDT) [facility] Alpha Fetoprotein 2.4 ng/mL [facility] Comment:Reference Range: <6. 1The use of AFP as a tumor marker in females is not recommended.This test was performed using the Kerri Coulterchemiluminescent method. Values obtained fromdifferent assay methods cannot be usedinterchangeably. AFP levels, regardless ofvalue, should not be interpreted as absoluteevidence of the presence or absence of disease.THIS TEST WAS PERFORMED AT:[employer] [address] [phone] FERNANDO MD Blood Venous blood specimen / Unknown 04/26/2025 8:15 AM EDT 04/26/2025 11:17 AM EDT Anushka Terell LAB BLOOD ORDERABLES Final R esult Performing Organization Address [facility] Co de Phone Number [facility] [address] [place] [phone] * Hepatitis B surface antigen, EIA (04/26/2025 8:15 AM EDT) Hepatitis B Surface Ag Negative Negative [facility] Blood Venous blood specimen / Unknown 04/26/2025 8:15 AM EDT 04/26/2025 11:12 AM EDT us Anushka Figueredo DO LAB BLOOD ORDERABLES Final R esult Performing Organization Address [facility]/ZIP Co de Phone Number [facility] [address] [place] [phone] * Prolactin (04/26/2025 8:15 AM EDT) Prolactin 7.6 ng/mL [facility] Comment:Reference Range Fema les Non- 3.0-30.0 10.0-209.0 Postmenopausal 2.0-20.0THIS TEST WAS PERFORMED AT:[employer] [place] [phone] FERNANDO MD 04/26/2025 8:15 AM EDT 04/26/2025 11:12 AM EDT us Generic External Data Provider LAB BLOOD ORDERAB LES Final Result Performing Organization Address [facility] de Phone Number [facility] [address] [place] [phone] * Growth Hormone (GH) (04/26/2025 8:15 AM EDT) Growth Hormone 0.2 < OR = 7.1 ng/mL [facility] Comment: Because of a pulsatile secretion [...] in the timed sequence. [Sahra L, Kaya Leija ER, Carlos S, et al. Acromegaly: an [...] or = 10.0 ng/mLTHIS TEST WAS PERFORMED AT:[employer] [address] [phone] FERNANDO MD 04/26/2025 8:15 AM EDT 04/26/2025 11:12 AM EDT Generic External Data Provider LAB BLOOD ORDERAB LES Final Result Performing Organization Address [facility] Co de Phone Number [facility] [address] [place] [phone] * Estradiol (04/26/2025 8:15 AM EDT) Pathologist [facility] Estradiol Ultra Sensitive 20 pg/mL [facility] Comment:Female Reference Ran ges for Estradiol, Ultrasensitive (pg/mL): Follicular Phase: 39-375 Luteal Phase: 48-440 Postmenopausal Phase: < or = 10This test was developed and its analytical performancecharacteristics have been determined by [employer].It has not been cleared or approved by the FDA. This assayhas been validated pursuant to the CLIA regulations and isused for clinical purposes.THIS TEST WAS PERFORMED AT:[employer]/[id number] [id number] MORALES MD,PHD,ADRIAN 04/26/2025 8:15 AM EDT 04/26/2025 11:12 AM EDT Generic External Data Provider LAB BLOOD ORDERAB LES Final Result Performing Organization Address [facility] Co de Phone Number [facility] [address] [place] [phone] * (ABNORMAL) ACTH, Plasma (04/26/2025 8:15 AM EDT) ACTH, Plasma 57(A) 6 - 50 pg/mL [facility] Comment:Reference range appl ies only to specimens collectedbetween 7am-10am.THIS TEST WAS PERFORMED AT:[employer]/[facility] [id number] [place] [address]FIBEJEOCHACORTA ASHBY MD,PHD 04/26/2025 8:15 AM EDT 04/26/2025 11:17 AM EDT us Generic External Data Provider LAB BLOOD ORDERAB LES Final Result Performing Organization Address [facility]/ZIP Co de Phone Number [facility] [address] [place] [phone] * RPR (Monitor) with Reflex to??Titer (04/26/2025 8:15 AM EDT) RPR (Monitor) w/Refl Titer NON-REACTI VE NON-REACT JOSEPHINE [facility] Comment:THIS TEST WAS PERFOR MED AT:[employer] [address] [phone] FERNANDO MD Rapid Plasma Reagin Ab Titer TNP [facility] Blood Venous blood specimen / Unknown 04/26/2025 8:15 AM EDT 04/26/2025 11:17 AM EDT us Anushka Figueredo DO LAB BLOOD ORDERABLES Final R esult Performing Organization Address City/[facility]/ZIP Co de Phone Number [facility] [address] [place], [place] [phone] * HIV-1/2 Antigen and Antibodies, Fourth Generation, with Reflexes (04/26/2025 8:15 AM EDT) HIV AB/AG Nonreactive Nonreactive [facility] Comment:HIV-1 p24 Ag and/or HIV-1/HIV-2 Ab not detected.A test result that is nonreactive does not exclude thepossibility of exposure to or infection with HIV-1 and/orHIV-2. Nonreactive results in this assay for individualswith prior exposure to HIV-1 and/or HIV-2 may be due toantigen and antibody levels that are below the limit ofdetection of this assay.The [employer] HIV Ag/Ab Combo assay result andsupplemental assay results should be interpreted inconjunction with the patient's clinical presentation,history and other laboratory results. If the results areinconsistent with clinical evidence, additional testing issuggested to confirm the result. Blood Venous blood specimen / Unknown 04/26/2025 8:15 AM EDT 04/26/2025 11:12 AM EDT Anushka Figueredo LAB BLOOD ORDERABLES Final R esult Performing Organization Address City/[facility]/ZIP Co de Phone Number [facility] [address] [place] [phone] * Hepatitis B Surface Antibody, Qualitative (04/26/2025 8:15 AM EDT) Pathologist [facility] ~Hepatitis B Surface Antibody NONREACTIVE Nonreactive [facility] Comment:Nonreactive: < 8.00 mIU/mL Blood Venous blood specimen / Unknown 04/26/2025 8:15 AM EDT 04/26/2025 11:12 AM EDT Anushka Figueredo DO LAB BLOOD ORDERABLES Final R esult Performing Organization Address City/[facility]/ZIP Co de Phone Number [facility] [address] [place] [phone] * TSH (04/26/2025 8:15 AM EDT) Only the most recent of2 resultswithin the time period is included. Thyroid Stimulating Hormone 1.35 0.32 - 4.0 uIU/mL [facility] Comment:TSH 3rd Generation ( [facility]) 04/26/2025 8:15 AM EDT 04/26/2025 11:12 AM EDT Generic External Data Provider LAB BLOOD ORDERAB LES Final Result Performing Organization Address [facility]/ZIP Co de Phone Number [facility] [address] [place] [phone] * T4, Free (04/26/2025 8:15 AM EDT) Only the most recent of2 resultswithin the time period is included. Free T4 (Free Thyroxine) 1.06 0.71 - 1.85 ng/dL [facility] 04/26/2025 8:15 AM EDT 04/26/2025 11:12 AM EDT Generic External Data Provider LAB BLOOD ORDERAB LES Final Result Performing Organization Address [facility] Co de Phone Number [facility] [address] [place] [phone] * Osmolality, Serum (04/26/2025 8:15 AM EDT) Pathologist [facility] Osmolality (Serum) 297 281 - 305 mosm/kg [facility] 04/26/2025 8:15 AM EDT 04/26/2025 11:12 AM EDT Generic External Data Provider LAB BLOOD ORDERAB LES Final Result Performing Organization Address [facility] Co de Phone Number [facility] [address] [place] [phone] * Hemoglobin A1c (04/26/2025 8:15 AM EDT) Hemoglobin A1c 5.5 <6.0 % [facility] Comment:Hemoglobin A1C Refer ence Range Adults: 4.8 - 6.0 % Non diabetic: < 6.0 % Goal: < 7.0 %Additional Action Suggested: > 8.0 %Note: Hemoglobin A1c results are invalid for patients with abnormal amounts of HbF. Blood transfusions may impact the HbA1c concentration in the patient sample. Estimated Average Glucose 111 mg/dL [facility] Comment:eAG = Estimated ave rage glucose which is %A1C expressed asaverage glucose, using the formula of the [id number] Glucose study (ADAG), Diabetes Care, Vol.31,#8,2007 Blood Venous blood specimen / Unknown 04/26/2025 8:15 AM EDT 04/26/2025 11:12 AM EDT us Anushka Figueredo DO LAB BLOOD ORDERABLES Final R esult Performing Organization Address [facility]/ZIP Co de Phone Number [facility] [address] [place] [phone] * LH (04/26/2025 8:15 AM EDT) Lutenizing Hormone 17.8 mIU/mL [facility] Comment:Reference Range Fol licular Phase 1.9-12.5 Mid-Cycle Peak 8.7-76.3 Luteal Phase 0.5-16.9 Postmenopausal 10.0-54.7THIS TEST WAS PERFORMED AT:[employer] [place] [id number] FERNANDO MD 04/26/2025 8:15 AM EDT 04/26/2025 11:12 AM EDT us Generic External Data Provider LAB BLOOD ORDERAB LES Final Result Performing Organization Address [facility]/ZIP Co de Phone Number [facility] [address] [place] [phone] [facility] (04/26/2025 8:15 AM EDT) Follicle Stimulating Hormone 39.9 mIU/mL [facility] Comment:Reference Range Foll icular Phase 2.5-10.2 Mid-cycle Peak 3.1-17.7 Luteal Phase 1.5- 9.1 Postmenopausal 23.0-116.3THIS TEST WAS PERFORMED AT:[employer] [place] [phone] FERNANDO MD 04/26/2025 8:15 AM EDT 04/26/2025 11:12 AM EDT us Generic External Data Provider LAB BLOOD ORDERAB LES Final Result Performing Organization Address City/[facility]/ZIP Co de Phone Number [facility] [address] [place] [phone] * Ferritin (04/26/2025 8:15 AM EDT) Pathologist [facility] Ferritin 46 10 - 250 ng/mL [facility] Blood Venous blood specimen / Unknown 04/26/2025 8:15 AM EDT 04/26/2025 11:12 AM EDT us Anushka Figueredo DO LAB BLOOD ORDERABLES Final R esult Performing Organization Address [facility] Co de Phone Number [facility] [address] [place] [phone] * (ABNORMAL) Hepatic Function Panel (04/26/2025 8:15 AM EDT) Bilirubin, Total 0.5 0.0 - 1.0 mg/dL [facility] Bilirubin, Direct 0.2 0.0 - 0.5 mg/dL [facility] Aspartate Amino Transferase 32(H) 5 - 31 U/L [facility] Alanine Aminotransferase 21 0 - 31 U/L [facility] Total Protein 6.8 6.5 - 8.0 g/dL [facility] Albumin Level 4.0 3.5 - 5.0 g/dL [facility] Alkaline Phosphatase 63 39 - 117 U/L [facility] Blood Venous blood specimen / Unknown 04/26/2025 8:15 AM EDT 04/26/2025 11:12 AM EDT Anushka Figueredo LAB BLOOD ORDERABLES Final R esult Performing Organization Address City/[facility]/ZIP Co de Phone Number [facility] [address] [place] [phone] [phone] * (ABNORMAL) Lipid Panel, Standard (04/26/2025 8:15 AM EDT) Triglycerides 46 <150 mg/dL [facility] Comment:Desirable Triglyceri de: less than 150 mg/dLBorderline High Triglyceride 150-199 mg/dLHigh Triglyceride: 200-499 mg/dLVery High Triglyceride: greater than or equal to 5OO mg/dL Cholesterol 177 <200 mg/dL [facility] Comment:Desirable Cholestero l: less than 200 mg/dLBorderline High Cholesterol: 200-239 mg/dLHigh Cholesterol: greater than 239 mg/dL LDL Cholesterol Calculated 100(H) <100 mg/dL [facility] Comment:Desirable LDL: less than 100 mg/dLNear Optimal/Above Optimal LDL: 110- 129 mg/dLBorderline High LDL: 130-159 mg/dLHigh LDL: 160-189 mg/dLVery High LDL: greater than or equal to 190 mg/dL HDL Cholesterol 68 >40 mg/dL [facility] Comment:Desirable HDL: great er than 40 mg/dL Note: This HDL assay may give artificially low results in patients with liver disease. Blood Venous blood specimen / Unknown 04/26/2025 8:15 AM EDT 04/26/2025 11:12 AM EDT Anushka Terell DO LAB BLOOD ORDERABLES Final R esult Performing Organization Address City/[facility]/ZIP Co de Phone Number [facility] [address] [place] [phone] * (ABNORMAL) Basic Metabolic Panel (04/26/2025 8:15 AM EDT) Only the most recent of2 resultswithin the time period is included. Sodium 142 135 - 145 mmol/L [facility] Potassium 4.1 3.3 - 5.1 mmol/L [facility] Chloride 106 96 - 108 mmol/L [facility] Carbon Dioxide 31(H) 22 - 29 mmol/L [facility] Anion Gap 9(L) 12 - 20 [facility] Urea Nitrogen (BUN) 18(H) 9 - 16 mg/dL [facility] Creatinine, Serum 0.59 0.5 - 1.4 mg/dL [facility] Estimated Glomerular Filt Rate >60 [facility] Comment:Chronic Kidney Disea se: Estimated GFR < 60 mL/min/1.75o1Vbovsk Kidney Disease: Estimated GFR < 15 mL/min/1.73m2 Glucose 90 60 - 115 mg/dL [facility] Calcium 9.2 8.4 - 10.2 mg/dL [facility] 04/26/2025 8:15 AM EDT 04/26/2025 11:12 AM EDT us Generic External Data Provider LAB BLOOD ORDERAB LES Final Result Performing Organization Address City/State/[facility] Co de Phone Number [facility] [address] [place] [phone] * XR Lumbar Spine Complete 4+ Views (04/24/2025 10:16 AM EDT) Anatomical Region Laterality Modality Spine, L-spine Radiographic Smita ging 04/24/2025 10:1 6 AM EDT Narrative 04/24/2025 12:33 PM EDT [address] [address] XRay Report Signed Patient: Gretel Kendall MR#: [id number] : 1960 Acct:[id number] Age/Sex: 64 / F ADM Date: 04/24/25 Loc: HO.HHCX Attending Dr: Anushka Figueredo DO Ordering Physician: Anushka Figueredo DO Date of Service: 04/24/25 Procedure(s): XR lumbar spine 4V min Accession Number(s): [id number] cc: Anushka Figueredo DO Examination: 5 view [...] 04/24/25 1231 DD/ 1016 TD/TT: 04/24/25 1030 Marriage And Family Social Worker: Procedure Note Donotuseinterpreter, Image - 04/24/[address] [address] XRay Report Signed Patient: Garrick Kendall#: [id number] : 8Acct:[id number] Age/Sex: 64 / FADM Date: 04/24/25 Loc: HO.HHCX Attending Dr: Anushka Figueredo DO Ordering Physician: Anushka Figueredo DO Date of Service: 04/24/25 Procedure(s): XR lumbar spine 4V min Accession Number(s): [id number] cc: Anushka Figueredo DO Examination: 5 view [...] 04/24/25 1231 DD/ 1016 TD/TT: 04/24/25 1030 Marriage And Family Social Worker: Anushka Figueredo DO IMG XR PROCEDURES Final Resu lt * Hm Colonoscopy (11/07/2014 3:46 PM EST) Historical Provider HEALTH MAINTENANCE Final Result from Last 3 Months or Most Recently Relevant to Health Maintenance Insurance [facility] [employer] OPTIONS (O D-SNP) [place] [id number] Care Teams Automotive Teacher Relationship Specialty Start Date End Date Anushka Figueredo DO [address] [place] [phone] PCP - General Family Medicine 10/03/18
--- OUTSIDE RECORDS SUMMARY | 2025-07-17 09:39 | XMS_ITS | Encounter Summary ---
Author Organization [employer] Address [address] [place] [address] Care Team Providers Care Quality Control Inspector Heading Name Role Phone Anushka Figueredo DO Primary Care Provider [phone] Reason for Visit * Reason Comments Med Refill Encounter Details Date Type Department Care Team (Late st Contact Info) Description 06/17/2025 Refill [facility]S [address] [place] [address] Anushka Figueredo DO [address] [facility] [place] [address] Chronic pain of both knees Social History [...] Description 07/30/2025 9:45 AM EDT Office Visit [facility] MEDICINE [address] [place] [address] documented as of this encounter Visit Diagnoses Diagnosis Chronic pain of both knees documented in this encounter Additional Health Concerns Assessment Noted Time PHQ-9 Depression Total Score: 4 07/24/20 24 9:07 AM EDT documented as of this encounter Care Teams Quality Control Inspector Heading Relationship Specialty Start Date End Date Anushka Figueredo DO [address] [place] [address] PCP - General Family Medicine 10/03/18 documented as of this encounter
--- OUTSIDE RECORDS SUMMARY | 2025-07-17 09:39 | XMS_ITS | Encounter Summary ---
Author Organization [facility] Address [address] [place] [address] Care Team Providers Care Branding Specialist Name Role Phone Crista Gaines Unavailable [phone] Anushka Figueredo Primary Care Provider [phone] Reason for Referral * MRI/CAT/PET Scan (Routine) - Closed Specialty Diagnoses / Procedures Referred By Kamilah marcial Referred To Contact Diagnoses Benign neoplasm of pituitary gland (HCC) Procedures MRI brain W WO contrast Ej Badillo PA-C Other Referral ID Status Reason Start Date Expiration Date Visits Requested Visits Authorized [id number] Closed Patient Preference 03/03/2022 07/03/2022 1 1 Encounter Details Date Type Department Care Team (Late st Contact Info) Description 12/07/2021 Orders Only [facility] Department of Neurosurgery [address] [place] [address] Ej Badillo PA-C Benign neoplasm of pituitary [...] (pouch) documented in this encounter Care Teams Branding Specialist Relationship Specialty Start Date End Date Anushka Figueredo [address] [place] [phone] PCP - General 10/30/21 Crista Gaines MBBS [address] [place] [address] [place] [address] Consulting Physician Endocrinology 10/09/21 documented as of this encounter
--- OUTSIDE RECORDS SUMMARY | 2025-07-17 09:39 | XMS_ITS | Clinical Summary ---
Author Organization [facility] Address [address] [place] [phone] Phone Care Team Providers Care Dispatcher Service Name Role Phone RoxannaAnushka lara Primary Care Provider [phone] Allergies Active Allergy Reactions Criticality Noted Date [...] Type Department Care Team Description 06/28/2025 Refill [facility] Specialties [address] [facility], [address] [place] [address] Sherwin Miller MD Medication Refill 05/16/2025 Refill [facility] Department of Neurology [address], [address] [place] [address] Kodi Diaz MD from Last 3 Months [...] years) (1 of 1 - PCV) 2008 RSV VACCINE (1 - Risk 50-74 years 1-dose series) 2008 ZOSTER VACCINES (1 of 2) 2008 OSTEOPOROSIS SCREENING INITI AL (ONE-TIME) 2023 MAMMOGRAM 03/31/2025 03/31/2023 INFLUENZA VACCINE (#1) 2025 COVID-19 VACCINE (1 - 2024-2 6 season) 2025 LIPID PANEL 02/17/2029 02/18/2024, 02/11/2022 [...] file Insurance MEDICARE PART A & [facility] MEDICARE PART A & B Member Subscriber Plan / Payer (Ef fective 2010-Present) Name:Gretel Kendall Member ID:[id number] Relation to Subscriber:Self Name:Gretel Kendall Subscriber ID:[id number] Payer ID:[id number] Group ID:Not on file Type:Medicare Address: [employer] [address] [place] [phone] [place] [address] MEDICARE REPLACEMENT [place] [id number] MEDICARE PART A & B Member Subscriber Plan / Payer ( fective 2010-Present) Name:Tran Azeb, Gretel Member ID:[id number] Relation to Subscriber:Self Name:Marc StricklandzarroCherryGretel Subscriber ID:[id number] Payer ID:[id number] Group ID:Not on file Type:Medicare Address: [employer] [address] [place] [phone] [place] [address] MEDICARE REPLACEMENT MEDICARE PART A & B [facility] MEDICARE REPLACEMENT MEDICARE PART A & B [facility] MEDICARE REPLACEMENT MEDICARE PART A & B [facility] MEDICARE REPLACEMENT MEDICARE PART A & B MEDICARE REPLACEMENT [place] [facility] MEDICARE PART A & B Member Subscriber Plan / Payer ( fective 2010-Present) Name:Marc StricklandRuthann hoanga Member ID:[id number] Relation to Subscriber:Self Name:Tran AzebCherryGretel Subscriber ID:[id number] Payer ID:[id number] Group ID:Not on file Type:Medicare Address: [employer] [address] [place] [phone] [place] [address] MEDICARE REPLACEMENT MEDICARE PART A & B [facility] MEDICARE REPLACEMENT Care Teams Dispatcher Service Relationship Specialty Start Date End Date Anushka Figueredo DO [address] [place] [phone] PCP - General Family Medicine 09/17/21 Additional Source Comments The information contained in this document represents components of the legal health record. It is not the complete legal health record.[facility]
--- OUTSIDE RECORDS SUMMARY | 2025-07-17 09:39 | XMS_ITS | Encounter Summary ---
Author Organization [employer] Address [address] [facility] 7[address] [place] [address] Care Team Providers Care Bus Driver Name Role Phone Anushka Figueredo DO Primary Care Provider [phone] Reason for Visit * Reason Onset Date Comments Med Refill 02/13/2025 Encounter Details Date Type Department Care Team (Late st Contact Info) Description 02/13/[address] [facility] & PEDS [address] [place] [address] Anushka Figueredo DO [address] [facility] [place] [address] Chronic pain of both knees Social History [...] 9:45 AM EDT Office Visit [facility] [address] [place] [address] documented as of this encounter Visit Diagnoses Diagnosis Chronic pain of both knees documented in this encounter Additional Health Concerns Assessment Noted Time PHQ-9 Depression Total Score: 4 07/24/20 24 9:07 AM EDT documented as of this encounter Care Teams Bus Driver Relationship Specialty Start Date End Date Anushka Figueredo DO [address] [place] [address] PCP - General Family Medicine 10/03/18 documented as of this encounter
[2025-07-17 11:31] LABS: NRBC Abs Auto 0.000 X10*3/uL (0.0-0.012); NRBC Pct Auto 0.0 /100WBC (0.0-0.2)
[2025-07-17 11:33] LABS: Hematocrit 45.3 % (37.0-47.0); Hemoglobin 13.9 g/dl (12.0-16.0); Imm Gran Abs Auto 0.02 X10*3/uL (0.00-0.03); Imm Gran Pct Auto 0.3 % (0.0-0.4); Lymphocytes Absolute Auto 1.6 X10*3/uL (1.2-4.9); Mean Corpuscular HGB Conc 30.7 g/dl (31.0-35.0); Mean Corpuscular Hemoglobin 27.5 pg (27.0-33.0); Mean Corpuscular Volume 89.7 fL (80.0-98.0); Red Blood Count 5.05 X10*6/uL (4.20-5.50)
[2025-07-17 11:39] LABS: Platelet Count 236 X10*3/uL (160-400); White Blood Count 6.7 X10*3/uL (4.8-10.8)
[2025-07-17 11:39] LABS: Alanine Aminotransferase 28 U/L (0-31); Albumin Level 4.2 g/dL (3.5-5.0); Alkaline Phosphatase 85 U/L (39-117); Anion Gap 10 (12-20); Aspartate Amino Transferase 38 U/L (5-31); Blood Urea Nitrogen 14 mg/dL (9-16); Calcium 9.7 mg/dL (8.4-10.2); Carbon Dioxide 29 mmol/L (22-29); Chloride 104 mmol/L (96-108); Estimated Glomerular Filt Rate > 60; Potassium 4.1 mmol/L (3.3-5.1); Sodium 139 mmol/L (135-145); Total Protein 7.6 g/dL (6.5-8.0)
== END 2025-07-17 08:57 | disposition home or self-care (01) ==
LOC: HO.HHCL 08:56
PROVIDERS: PCP Family Medicine; Visit Provider Nurse Practitioner Family
DX: H81.13 Benign paroxysmal vertigo, bilateral (principal)
CPT/HCPCS: 36415; 80053; 85025

== ENCOUNTER 2025-08-20 07:46 | Outpatient (REF) | payer OTHER, SELFPAY ==
--- NOTE | 2025-08-20 | EMG_ITS ---
Chief complaint: Bilateral lower extremity numbness and tingling Reason for referral: R20.2 Paresthesia of skin Referred by: Anushka Figueredo MD Procedure done: NCS and EMG of bilateral lower extremities Bilateral peroneal and tibial motor studies were performed with F responses. Tibial H reflexes were obtained. Bilateral superficial peroneal and sural sensory studies were performed and median and lateral mixed sensory studies were performed. Needle examination was performed. Findings: Motor studies did not reveal any significant abnormality. Sural conduction velocities were bilaterally mildly delayed. Median and lateral mixed plantars sensory studies revealed no responses in bilateral median plantars and right lateral plantars. Left lateral plantars amplitude was significantly diminished. Impression: 1. 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 Mild underlying sensory peripheral neuropathy [place] [address] x2 MTDD
== END 2025-08-20 07:47 | disposition home or self-care (01) ==
LOC: HO.NEURO 07:46
PROVIDERS: PCP Family Medicine; Visit Provider Family Medicine
DX: R20.2 Paresthesia of skin (principal); R20.0 Anesthesia of skin
CPT/HCPCS: 95886; 95913

== ENCOUNTER → 2025-08-20 07:48 | Outpatient (BNV) | payer OTHER, SELFPAY | PROVIDERS: PCP Family Medicine; Visit Provider Psychiatry & Neurology Neurology | DX: G62.89 Other specified polyneuropathies (principal) | CPT/HCPCS: 95886; 95913 ==